=== PATIENT | female | born 1945 | race Caucasian/White ===

== ENCOUNTER → 2018-01-19 06:00 | Outpatient (CLI) | payer MEDICARE, SELFPAY ==
--- NOTE | 2018-01-19 09:45 | STRESSREP ---
Stress Test Report Pharmacologic myocardial perfusion stress test. 72-year-old lady with a history of chest pain. Stress protocol: Resting EKG demonstrates normal sinus rhythm with rate of 85 bpm normal intervals and noted resting blood pressure is 142/82 mmHg. 0.4 mg of regadenoson was infused per usual protocol followed by rapid intravenous saline flush injection continuous EKG monitoring was performed. The maximum heart rate attained was noted to be 89 bpm which was 60% of maximum predicted heart rate. The maximum workload attained was 1 metabolic equivalent. At rest there were no ST or T-wave changes noted suggest abnormal flow reserve at peak infusion no ST or T-wave changes were noted suggest abnormal flow reserve. No clinical angina was noted the resting blood pressure is 142/82 mmHg. Myocardial perfusion protocol. 14.4 mCi of technetium 99m sestamibi was injected. 0.4 mg of regadenoson was infused per usual protocol peak infusion 44.7 mCi of technetium 99m sestamibi was injected. Stress images were obtained stress and rest images were reconstructed and compared in the short axis vertical long horizontal long axis. Gated images were also obtained. Perfusion SPECT analysis. Review of the stress images demonstrate normal uptake of tracer noted in all areas of the myocardium. The resting images similarly demonstrate normal uptake of tracer noted in all areas myocardium. No areas of reversibility and is just ischemia.No previous infarct is noted. Gated SPECT analysis. The gated ejection fraction is 80%. Conclusion: Normal pharmacologic myocardial perfusion stress test. Preserved ejection fraction.
== END ==
PROVIDERS: Family Provider Internal Medicine; PCP Internal Medicine; Visit Provider Family Medicine
DX: R07.89 Other chest pain (principal); R94.31 Abnormal electrocardiogram [ECG] [EKG]
CPT/HCPCS: 78452; 93017; A9500; A4216; J2785

== ENCOUNTER 2018-02-23 14:12 | Emergency (ER) | payer MEDICARE, SELFPAY ==
[2018-02-23 14:14] VITALS: BP 141/77; PULSE 92; RESP 16; TEMP 36.5; O2SAT 95; BMI 40.4
--- NOTE | 2018-02-23 15:12 | CT_ITS ---
STUDY: CT ABDOMEN AND PELVIS WITHOUT CONTRAST REASON FOR EXAM: Female, 72 years old. LT LOW BACK PAIN. HTN-controlled. Prev LEILANI/BSO RADIATION DOSAGE (If Supplied By Facility): CTDIvol = ( 14.38 ) mGy, DLP = ( 662.43 ) mGycm TECHNIQUE: Transaxial images were obtained from the dome of the diaphragm to the symphysis pubis without oral contrast, and without intravenous contrast. Sagittal and coronal images were reconstructed. COMPARISON: None. FINDINGS: The visualized lung bases are unremarkable. The visualized portions of the heart are within normal limits. There is decreased attenuation of the liver consistent with steatosis. Normal gallbladder and extrahepatic biliary system. There are multiple benign calcified granulomata of the spleen. Normal pancreas. Normal bilateral adrenal glands. Mild hydronephrosis caused by left 14 mm renal pelvic stone. Nonobstructive left inferior renal calyceal stone. This measures 4.1 mm. Normal visualized stomach. Normal small intestine. There are multiple colonic diverticula consistent with diverticulosis. There is non-visualization of the appendix. Large amount of stool in the rectal vault can suggest constipation. Stool throughout the colon. There are calcifications of the abdominal aorta and vascular structures. This is consistent for atherosclerotic disease. There is no abdominal aortic aneurysm. Normal inferior vena cava. Subcentimeter mesenteric lymph nodes. Normal urinary bladder. There is absence of the uterus consistent with a prior hysterectomy. There is a small umbilical hernia containing fat. There are degenerative changes of the osseous structures. Grade 1 anterolisthesis of L4 on L5. This is causing severe bilateral neural foraminal stenosis. CT/Abdomen/Pelvis without Cont IMPRESSION: Mild hydronephrosis caused by left 14 mm renal pelvic stone. Fatty liver. Constipation. Hysterectomy. There are multiple diverticuli of the colon. There is diverticulosis but no radiographic signs for diverticulitis. Grade 1 anterolisthesis of L4 on L5. This is causing severe bilateral neural foraminal stenosis. MRI can further evaluate. Other findings as above. Electronically Signed: Markell Yeung MD at 16:22 EDT , Service support ,
--- NOTE | 2018-02-23 15:38 | ED.VISSUMM ---
- ER Visit Summary Date of Service: 02/23/18 Chief Complaint: Left low back pain History of Present Illness: The patient is a 72 F who presents with left low back pain that has been getting worse over the past couple days. Patient states she has had similar pain with prior urinary tract infections. Patient admits to some urinary frequency but denies any dysuria or hematuria. Patient states the pain is on the left. Patient describes the pain as stabbing and throbbing. Patient states the pain is worse with movement. Patient states the pain improves with rest. Patient denies any radiation of the pain. Patient denies any paresthesias or weakness. Patient denies any fevers or chills but admits to occasional sweats. Physical Examination: Vital signs are stable. Patient is afebrile. Patient is in no acute distress. Oral mucosa is pink and moist. Neck is supple. Heart was regular rate and rhythm. Lungs are clear and equal bilaterally. There is good respiratory effort noted. Abdomen is soft. Bowel sounds are normal. There is no tenderness. There is some mild left lower lumbar tenderness. There is limited range of motion of the lumbar spine secondary to pain. Strength is 5/5 bilaterally. There are no sensory deficits noted. The remaining physical exam is within normal limits. Test Results: CT scan of the abdomen and pelvis shows mild hydronephrosis with a 14 mm left renal pelvic stone. Urinalysis shows leukocyte esterase of 100, 5-10 white blood cells, 5-10 red blood cells, 0-5 epithelial cells. Treatment Plan: Patient was given prescription for Bactrim and [place]. Patient states she has an appointment with her urologist in 3 weeks. Patient was instructed to call her urologist to see if she can get an appointment sooner. Patient understood and was agreeable with the plan. All questions were answered. Disposition: Discharge home Impression: Kidney stone This note was generated with [employer] dictation software. It may contain incorrect words, spelling, and punctuation that were not noted in review of the chart prior to signing ED Disposition - Plan for ED Patient: Disposition: Home or Assisted Living Chief Complaint: Back Diagnosis: Left nephrolithiasis Instructions: ED Stone Kidney Undescended No Sx Prescriptions: Hydrocodone Bitart/Apap 5-325 [[place] 5/325] 1 tab PO Q6H PRN PRN 5 Days #20 tab PRN Reason: Pain Smz/Tmp Ds [Bactrim Ds] 1 tab PO BID #6 tab Referrals: Alta Pulido MD [Primary Care Provider] -
[2018-02-23 15:42] LABS: Bacteria 0 SEEN /hpf (None Seen); Mucous, Urine 0 SEEN /hpf (<or=2+)
--- NOTE | 2018-02-23 15:42 | ED.DCSUM_ITS ---
- ER Visit Summary Date of Service: 02/23/18 Chief Complaint: Left low back pain History of Present Illness: The patient is a 72 F who presents with left low back pain that has been getting worse over the past couple days. Patient states she has had similar pain with prior urinary tract infections. Patient admits to some urinary frequency but denies any dysuria or hematuria. Patient states the pain is on the left. Patient describes the pain as stabbing and throbbing. Patient states the pain is worse with movement. Patient states the pain improves with rest. Patient denies any radiation of the pain. Patient denies any paresthesias or weakness. Patient denies any fevers or chills but admits to occasional sweats. Physical Examination: Vital signs are stable. Patient is afebrile. Patient is in no acute distress. Oral mucosa is pink and moist. Neck is supple. Heart was regular rate and rhythm. Lungs are clear and equal bilaterally. There is good respiratory effort noted. Abdomen is soft. Bowel sounds are normal. There is no tenderness. There is some mild left lower lumbar tenderness. There is limited range of motion of the lumbar spine secondary to pain. Strength is 5/5 bilaterally. There are no sensory deficits noted. The remaining physical exam is within normal limits. Test Results: CT scan of the abdomen and pelvis shows mild hydronephrosis with a 14 mm left renal pelvic stone. Urinalysis shows leukocyte esterase of 100, 5- 10 white blood cells, 5-10 red blood cells, 0-5 epithelial cells. Treatment Plan: Patient was given prescription for Bactrim and [place]. Patient states she has an appointment with her urologist in 3 weeks. Patient was instructed to call her urologist to see if she can get an appointment sooner. Patient understood and was agreeable with the plan. All questions were answered. Disposition: Discharge home Impression: Kidney stone This note was generated with [employer] dictation software. It may contain incorrect words, spelling, and punctuation that were not noted in review of the chart prior to signing ED Disposition - Plan for ED Patient: Disposition: Home or Assisted Living Chief Complaint: Back Diagnosis: Left nephrolithiasis Instructions: ED Stone Kidney Undescended No Sx Prescriptions: Hydrocodone Bitart/Apap 5-325 [[place] 5/325] 1 tab PO Q6H PRN PRN 5 Days #20 tab PRN Reason: Pain Smz/Tmp Ds [Bactrim Ds] 1 tab PO BID #6 tab Referrals: Alta Pulido MD [Primary Care Provider] -
[2018-02-23 15:44] LABS: Color, Urine Yellow (Yellow); Glucose, Dipstick Normal (Normal); Ketone-Dipstick Negative (Negative); Leukocyte Esterase-Dipstick 100 /ul (Negative); Nitrite-Dipstick Negative (Negative); Occult Blood-Urine 10 /ul (Negative); Protein-Dipstick 100 mg/dl (Negative); Urine Bilirubin Dipstick Negative (Negative); Urine Clarity Sl. Cloudy (Clear); Urine Urobilinogen Normal (Normal)
[2018-02-23 16:18] LABS: Red Blood Cells-Urine 5-10 SEEN /hpf (0-5); Squamous Epithelial Cells - UA 0-5 SEEN /hpf (5-10); White Blood Cells 5-10 SEEN /hpf (0-5)
[2018-02-23 17:53] VITALS: RESP 17
== END 2018-02-23 17:53 | disposition home or self-care (01) ==
PROVIDERS: Emergency Provider Emergency Medicine; Family Provider Internal Medicine; PCP Internal Medicine
DX: N13.2 Hydronephrosis with renal and ureteral calculous obstruction (principal); I10 Essential (primary) hypertension; E78.00 Pure hypercholesterolemia, unspecified; Z87.440 Personal history of urinary (tract) infections; Z79.899 Other long term (current) drug therapy
CPT/HCPCS: 74176; 81001; 99282

== ENCOUNTER → 2018-03-01 13:19 | Outpatient (CLI) | payer MEDICARE, SELFPAY ==
--- NOTE | 2018-03-01 13:35 | RAD_ITS ---
STUDY: X-RAY - ABDOMEN/PELVIS REASON FOR EXAM: Female, 72 years old. Kidney stone. TECHNIQUE: Two AP supine views of the abdomen and pelvis. COMPARISON: CT abdomen and pelvis February 23, 2018. FINDINGS: Normal visualized lung bases. There is an unremarkable bowel gas pattern. There is no demonstrated free abdominal air. 1.7 x 1.0 cm calcification overlapping the lower pole of the left renal shadow correlates to the overlapping of the calyceal and renal pelvis stones noted on CT. The visualized liver, spleen and kidneys are otherwise grossly normal in size and morphology. There are a few stable calcified phleboliths in the pelvis. There are early degenerative changes of the visualized lumbar spine and bilateral sacroiliac joints. There is endplate spondylosis of the visualized lower thoracic spine and moderate degenerative change at the pubic symphysis. RAD/Abdomen Single View IMPRESSION: 1. The left renal stones noted on CT are overlapping one another in these views, projecting over the lower pole of the left renal shadow. 2. Nonspecific bowel gas pattern. 3. Degenerative changes in the spine and pelvis again noted. Electronically Signed: Joseph Sandoval MD at 14:21 EDT , Service support ,
== END ==
PROVIDERS: Family Provider Internal Medicine; PCP Internal Medicine; Visit Provider Nurse Practitioner Adult Health
DX: N20.0 Calculus of kidney (principal)
CPT/HCPCS: 74018

== ENCOUNTER → 2018-03-01 16:05 | Outpatient (CLI) | payer MEDICARE, SELFPAY | PROVIDERS: Family Provider Internal Medicine; PCP Internal Medicine; Visit Provider Nurse Practitioner Adult Health | DX: R82.90 Unspecified abnormal findings in urine (principal) ==

== ENCOUNTER 2018-03-07 12:30 | Day surgery (SDC) | payer MEDICARE, SELFPAY ==
--- NOTE | 2018-03-07 12:35 | RAD_ITS ---
STUDY: X-RAY - ABDOMEN/PELVIS REASON FOR EXAM: Female, 72 years old. Left kidney stones. TECHNIQUE: Two AP supine views of the abdomen and pelvis. COMPARISON: Comparison is made with prior study dated March 01, 2018. FINDINGS: There is a moderate amount of colonic fecal material. There is a 1.5 cm calculus in the midportion of the left kidney most likely within the renal pelvis. Adjacent to this, there is a 8.6 mm calculus. There are calcified phleboliths in the pelvis. There are diffuse degenerative changes of the visualized lumbar spine. RAD/Abdomen Single View IMPRESSION: Stable examination. 2 calculi are seen in the region of the left renal pelvis. Electronically Signed: Vadim Roche MD at 12:56 EDT Tel [phone], Service support ,
[2018-03-07 13:17] VITALS: BP 140/61; PULSE 79; RESP 16; TEMP 36.6; O2SAT 95; BMI 39.7
--- NOTE | 2018-03-07 14:56 | PCM.DC.URO ---
Discharge Diet: Light diet - advance as tolerated Discharge Activity: May not drive while taking narcotic pain medications. Return to work on:: 03/09/18 Call your doctor if your incision/area has: Increased Pain/ Swelling Call your doctor if you observe: Fever of 101 or Higher Instructions: Shock Wave Lithotripsy Allergies/Adverse Reactions: Allergies No Known Allergies Allergy (Verified 03/06/18 14:47) Medications to take at Discharge Amitriptyline HCl 100 mg PO QHS 10/19/17 Simvastatin 20 mg PO DAILY 10/19/17 Hydrocodone Bitart/Apap 5-325 [[place] 5/325] 1 tab PO Q6H PRN PRN 5 Days #20 tab 02/23/18 Losartan/Hydrochlorothiazide [Losartan-Hctz 100-25 mg Tab] 0.5 mg PO DAILY 02/23/18 Potassium Bicarbonate/Cit AC [Effer-K 10 Meq Tablet Eff] 20 meq PO DAILY 02/23/18 Smz/Tmp Ds [Bactrim Ds] 1 tab PO BID #6 tab 02/23/18 Aspirin E.C. [Ecotrin] 81 mg PO DAILY@0800 03/06/18 Calcium (Elemental) [Os-[place] 500] 500 mg PO DAILY@0800 03/06/18 Magnesium Oxide [Magnesium] 500 mg PO DAILY 03/06/18 Vitamin B Complex 1 each PO DAILY 03/06/18 Zinc Amino Acid Chelate [Zinc] 50 mg PO DAILY 03/06/18 Ciprofloxacin [Cipro] 500 mg PO BID #6 tab 03/07/18 Phenazopyridine [Pyridium] 100 mg PO TID PRN PRN #15 tab 03/07/18 The following prescriptions were given: Phenazopyridine [Pyridium] 100 mg PO TID PRN PRN #15 tab PRN Reason: burning Ciprofloxacin [Cipro] 500 mg PO BID #6 tab Primary Care Physician: Alta Pulido MD [Primary Care Provider] - Please Follow Up With: Toby Barnett MD When: March 20 at 8:45am, get xray first
--- NOTE | 2018-03-07 15:00 | DCINST_ITS ---
Discharge Diet: Light diet - advance as tolerated Discharge Activity: May not drive while taking narcotic pain medications. Return to work on:: 03/09/18 Call your doctor if your incision/area has: Increased Pain/ Swelling Call your doctor if you observe: Fever of 101 or Higher Instructions: Shock Wave Lithotripsy Allergies/Adverse Reactions: Allergies No Known Allergies Allergy (Verified 03/06/18 14:47) Medications to take at Discharge Amitriptyline HCl 100 mg PO QHS 10/19/17 Simvastatin 20 mg PO DAILY 10/19/17 Hydrocodone Bitart/Apap 5-325 [[place] 5/325] 1 tab PO Q6H PRN PRN 5 Days #20 tab 02/23/18 Losartan/Hydrochlorothiazide [Losartan-Hctz 100-25 mg Tab] 0.5 mg PO DAILY 02/23 Potassium Bicarbonate/Cit AC [Effer-K 10 Meq Tablet Eff] 20 meq PO DAILY Smz/Tmp Ds [Bactrim Ds] 1 tab PO BID #6 tab 02/23/18 Aspirin E.C. [Ecotrin] 81 mg PO DAILY@0800 03/06/18 Calcium (Elemental) [Os-[place] 500] 500 mg PO DAILY@0800 03/06/18 Magnesium Oxide [Magnesium] 500 mg PO DAILY 03/06/18 Vitamin B Complex 1 each PO DAILY 03/06/18 Zinc Amino Acid Chelate [Zinc] 50 mg PO DAILY 03/06/18 Ciprofloxacin [Cipro] 500 mg PO BID #6 tab 03/07/18 Phenazopyridine [Pyridium] 100 mg PO TID PRN PRN #15 tab 03/07/18 The following prescriptions were given: Phenazopyridine [Pyridium] 100 mg PO TID PRN PRN #15 tab PRN Reason: burning Ciprofloxacin [Cipro] 500 mg PO BID #6 tab Primary Care Physician: Alta Pulido MD [Primary Care Provider] - Please Follow Up With: Toby Barnett MD When: March 20 at 8:45am, get xray first
--- NOTE | 2018-03-07 15:52 | OP.PCM_ITS ---
Report of Operation Date of Procedure: 03/07/18 Pre-Operative Diagnosis: Left renal calculi ?2 Post-Operative Diagnosis: Same Surgery/Procedure Performed:: Cystoscopy left stent placement and left extracorporeal shockwave lithotripsy Description of Surgical Findings:: 72-year-old female was found to have 2 large stones in her left kidney today plan for treatment of the stones with shockwave lithotripsy renal place a stent beforehand. She was taken back to the operating room and placed in dorsal lithotomy position. She underwent general anesthesia. The urethra and vaginal area were prepped and draped in usual sterile fashion. Went into the bladder with a 21 Palestinian rigid cystourethroscope. The bladder was normal, cannulated the left ureteral orifice with a Glidewire, advanced a wire up into the kidney, I then advanced a stent all the way up to the kidney. Once the stent was in good position I pulled the wire and the stent coiled in the kidney and bladder in good position left the string on the stent for extraction in the future. We then repositioned the patient on the lithotripter table identified the 2 stones and placement of the F2 focal point of the lithotripter machine and delivered 3000 shockwaves to the stones because the stones were fragmented little tiny pieces. At the end of the treatment cycle stones look terribly fragmented successfully. Always possible she may need another treatment. Patient's anesthetic was reversed and she is taken back to the PACU in good condition plan to see her back in about 2 weeks with a KUB before the appointment. Type of Anesthesia:: General Drains: stent - Admit VTE Documentation VTE Present on Admission: No VTE Mechan Device Prophylaxis: SCD's VTE Pharm Prophylaxis ordered?: No Reason prophylaxis not ordered:: Treatment Not Indicated
[2018-03-07 15:56] VITALS: BP 129/65; BP 140/61; PULSE 83; RESP 18; TEMP 36.2; O2SAT 93
[2018-03-07] MEDS: Ketorolac 15 MG/ML Vial IV (16:01)
[2018-03-07 16:15] VITALS: BP 132/65; BP 140/61; PULSE 79; RESP 18; O2SAT 93
[2018-03-07 16:30] VITALS: BP 120/62; BP 140/61; PULSE 79; RESP 18; O2SAT 97
[2018-03-07 16:40] VITALS: BP 112/70; BP 140/61; PULSE 78; RESP 78; TEMP 36.1; O2SAT 95
[2018-03-07 17:25] VITALS: BP 140/61
== END 2018-03-07 17:32 | disposition home or self-care (01) ==
LOC: SDC 12:31 → AC 12:32
PROVIDERS: Family Provider Internal Medicine; PCP Internal Medicine; Visit Provider Urology
PROC: (CPT 50590; principal; 2018-03-07 14:20)
DX: N20.0 Calculus of kidney (principal); F32.9 Major depressive disorder, single episode, unspecified; I15.9 Secondary hypertension, unspecified; E66.9 Obesity, unspecified; G47.30 Sleep apnea, unspecified; E78.00 Pure hypercholesterolemia, unspecified; K76.0 Fatty (change of) liver, not elsewhere classified; Z68.38 Body mass index [BMI] 38.0-38.9, adult; Z87.440 Personal history of urinary (tract) infections; Z79.2 Long term (current) use of antibiotics; Z79.82 Long term (current) use of aspirin; Z79.891 Long term (current) use of opiate analgesic; Z79.899 Other long term (current) drug therapy
CPT/HCPCS: 00873; 52356; 74018; 87086; 87088; J7120; C1769; C2617; J3490

== ENCOUNTER → 2018-03-20 10:25 | Outpatient (CLI) | payer MEDICARE, SELFPAY ==
--- NOTE | 2018-03-20 10:35 | RAD_ITS ---
STUDY: X-RAY - ABDOMEN/PELVIS REASON FOR EXAM: Female, 73 years old. Renal stones TECHNIQUE: Supine views of the abdomen and pelvis were obtained. COMPARISON: Abdomen radiograph dated March 07, 2018; CT abdomen and pelvis dated February 23, 2018 FINDINGS: The lung bases are unremarkable. There is an unremarkable bowel gas pattern. There is no demonstrated free abdominal air. A left ureteral stent is now present. The upper loop is at the level of the L2 vertebral body. The lower loop is in the lower mid pelvis. No calcifications are seen along the course of the stent. Two phleboliths are stable in the lower left pelvis. The soft tissues are unremarkable. There are mild degenerative changes in the visualized spine. RAD/Abdomen Single View IMPRESSION: A left ureteral stent has been placed. The left renal shadow is obscured by overlying stool. There are two calcific densities faintly seen just above the upper loop of the stent. No stones are seen along the course of the stent. Electronically Signed: Alejandra Mays MD at 23:19 EDT Tel Direct: [phone], Service support ,
== END ==
PROVIDERS: Family Provider Internal Medicine; PCP Internal Medicine; Visit Provider Urology
DX: N20.0 Calculus of kidney (principal)
CPT/HCPCS: 74018

== ENCOUNTER → 2018-03-27 16:14 | Outpatient (CLI) | payer MEDICARE, SELFPAY ==
--- NOTE | 2018-03-27 16:20 | RAD_ITS ---
STUDY: X-RAY - ABDOMEN/PELVIS REASON FOR EXAM: Female, 73 years old. Left flank pain. Lithotripsy 2 weeks ago for left-sided kidney stones. TECHNIQUE: KUB COMPARISON: X-ray abdomen 03/20/2018 FINDINGS: There are no visible calculi overlying the left kidney or along the course of the left ureter. None are seen on the right. Stable pattern of left pelvic phleboliths. No other acute intra-abdominal process is evident. Unremarkable bowel pattern. No apparent free air. Grossly normal solid organs. Mild low lumbar spondylosis and minimal scoliosis. RAD/Abdomen Single View IMPRESSION: No visible retained renal or ureteral calculi. Electronically Signed: Adelso Taveras, at 13:06 EDT Tel , Service support ,
== END ==
PROVIDERS: Family Provider Internal Medicine; PCP Internal Medicine; Visit Provider Nurse Practitioner Adult Health
DX: N20.0 Calculus of kidney (principal); R10.9 Unspecified abdominal pain
CPT/HCPCS: 74018

== ENCOUNTER → 2018-06-04 13:27 | Outpatient (CLI) | payer MEDICARE, SELFPAY ==
--- NOTE | 2018-06-04 13:30 | RAD_ITS ---
STUDY: X-RAY - ABDOMEN/PELVIS REASON FOR EXAM: Female, 73 years old. 3 MONTH FOLLOW UP FOR KIDNEY STONE TECHNIQUE: Single AP view of the abdomen / pelvis. COMPARISON: March 27, 2018 FINDINGS: Normal visualized lung bases. There is an unremarkable bowel gas pattern. There is no demonstrated free abdominal air. The visualized liver, spleen and kidneys are grossly normal in size and morphology. Normal soft tissue structures. Normal visualized osseous structures. RAD/Abdomen Single View IMPRESSION: No demonstrated renal or ureteral stone. Electronically Signed: Delmy Monson MD at 11:03 EDT , Service support ,
== END ==
PROVIDERS: Family Provider Internal Medicine; PCP Internal Medicine; Visit Provider Nurse Practitioner Adult Health
DX: N20.0 Calculus of kidney (principal)
CPT/HCPCS: 74018

== ENCOUNTER → 2018-08-10 12:44 | Outpatient (CLI) | payer MEDICARE, SELFPAY ==
--- NOTE | 2018-08-10 12:46 | BI_ITS ---
MAMMOGRAPHY - BILATERAL SCREENING REASON FOR EXAM: Female, 73 years old. Routine annual screening examination. PERTINENT HISTORY: Daughter with breast cancer. TECHNIQUE: Digital bilateral breast sonia (3D mammographic acquisition) in the CC and MLO projections. 2-D mediolateral oblique (MLO) and craniocaudad (CC) views of both breasts were obtained. CAD: Full Field Digital Mammography with Computer Added Detection was performed. COMPARISON: Comparison is made with prior study dated February 10, 2017 and October 01, 2014. FINDINGS: Breast Composition: There are scattered areas of fibroglandular density. There are no dominant masses or suspicious calcifications. Stable benign-appearing bilateral axillary lymph nodes. No other significant abnormalities are identified. There has been no significant change since the prior study. BI/SCREENING MAMM (CAD), BILAT IMPRESSION: Stable bilateral screening mammogram. Yearly follow-up mammogram recommended. (A) ASSESSMENT CATEGORY: BIRADS Category 2: Benign. A letter regarding these results will be sent to the patient by the facility within 30 days. Approximately 10% of breast cancers are not detected by mammography. A normal mammogram should not delay biopsy of a clinically suspicious abnormality. [id number] Electronically Signed: Vadim Roche MD at 14:30 EDT Tel [phone], Service support ,
== END ==
PROVIDERS: Family Provider Family Medicine; PCP Family Medicine; Referring Provider Physician Assistant
DX: Z12.31 Encounter for screening mammogram for malignant neoplasm of breast (principal)
CPT/HCPCS: 77063; 77067

== ENCOUNTER 2018-08-23 14:30 | Outpatient (RCR) | payer MEDICARE, SELFPAY ==
--- NOTE | 2018-07-23 14:31 | HP.PTEVAL ---
Patient's Visit Information BRITTANI STEWART is a 73 year old F referred to Physical Therapy by Keo Rocha MD with a diagnosis of Right Shoulder Pain. Date of Evaluation: 07/23/18 Physical Therapist: Suellen Granados - Visit Plan Frequency: 2x /Week Duration: 4 Weeks Plan: Focus on scap s/s and postural stability - Subjective Subjective: Right shoulder pain- insidious onset a few months ago. She crochets a lot and sometimes that bothers her. Right hand dominate. Pain is located in the deltoid. No radiating pain. Keeps her awake at night- side sleeper- left side and propping the right arm. Worst: 8/10 Agg: crocheting, raising her arm, taking the elbow out and back, getting her bra hooked in the front and spin. Best:0/10 Eases: Tylenol and elevation on the pillow. Describes the pain as dull and achy. Saw MD who called it [place]king. 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 Plans to paint a room in a few days and is concerned about the pain. No N/T in the fingers. No MONSALVE, blurred vision, dizziness. MD did x-rays which showed bursitis- was put on Prednisone dose pack and finished about a week ago. The medication helped a little bit but not a lot and she hated taking it becuase it made her not be able to sit still. Feels the shoulder has been the same since Februrary. PMHX: bilateral knee replacements, hysterectomy, thumb worked on bilaterally, carpal tunnel on the right, ganglion cyst both wrists, cateracts bilaterally, HTN, is watching sugar levels. Meds: symvastatin, hydrochlorthiazide, incontinence medication, baby asprin, over the counter vitamins. - Objective Posture: FH, RS, Increased kyphosis- can correct with verbal cueing. Gait: no deviation noted- good arm swing and trunk rotation. Palpation: tender along medial border of the scapula, bicipital groove and upper trap. ROM: cervical: WNL, Shoulder: WNL in all planes with pain in flexion and abduction, Elbow/Wrist/Finger Dexterity: WNL. Sensation: WNL. Strength: Marketing Technology Specialist: equal to the left, Elbow: 5/5, Shoulder: flexion: 4-/5, abd: 4-/5, IR/ER: 4+/5, Extn: 4+/5, Scap: fair minus. Special Test: Impingment: positive - Goals Goal 1:: Patient will be I with HEP and progression Goal 2:: Patient will maintian proper posture t/o tx session to demo increased scap s/s. Goal Time Frame: 4-6 Weeks Goal 3:: Patinet will demo full AROM painfree in the right shoulder Goal Time Frame: 4-6 Weeks Goal 4:: Patient will report 0/10 pain for 1 week Goal Time Frame: 4-6 Weeks - Rehabilitation Potential Physical Therapy Diagnosis: Patient presents with hypomobility- she has decreased ROM, strength and muscular endurance leading to poor posture and impingment of the right shoulder Rehabilitation Potential: Fair - Anticipated Interventions Patient/Client Instruction: Educate patient on: Benefits of Fitness Program Therapeutic Exercise to Include: Strength training, Endurance training, Agility training, Body mechanics, Postural training, Flexibilty training, Gait and locomotor training, Passive ROM, Active ROM, Scapular Strength/Stabilization For the Purpose of:: To improve muscle performance and motor function TENS: Yes Cryotherapy (ice pack, ice massage): Yes Thermo therapy (hot pack): Yes Ultrasound (thermal/non thermal): Yes For the Purpose of:: To decrease pain Thank you for the opportunity to evaluate your patient. For Medicare and Medicare HMO plans, please review the plan of care and approve it. It will need to be FAXED BACK to us at [phone] for Medicare purposes. Please let me know if there are questions or concerns regarding this plan of care. Physician Signature: Date:
--- NOTE | 2018-07-23 15:41 | HP.OTEVAL ---
Patient's Visit Information BRITTANI STEWART is a 73 year old F, referred to Occupational Therapy by Keo Rocha MD, with a diagnosis of left trigger finger. Date of Evaluation: 07/23/18 Occupational Therapist: Francoise Watt, ROBINSON/Chris, CHT - Subjective Subjective: This 73 year old female was seen for initial OT eval with dx of left RF trigger finger. pt states she had pain starting in Nov. Pt states she does get some pain relief with massaging the most painful area of her hand- pt states she was unable to open her finger without using her other hand at times and curretly finger catches with motion. PT would like to return to her OF with BADLs and IADLS - Pain left hand 0 Pain Intensity Range: 0, 3 - ROM ROM Comments: pt demo 1 from left composite fist due to pain. no pain with digit ext. at this time. 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 Goal:: Pt will demo the ability to form a composite fist to hold coins and manipulate fasteners/money and gasp grocery bags by D/C Goal:: Pt will report pain no greater than 1/10 with use of affected hand with BADLs and IADLs by d/c. Goal:: pt will demo the ability to hold and transitions coins from palm of hand to tips of fingers by d/c Goal:: Pt will demo understanding of joint protection and ergonomics when performing BADLs and IADLs by d/c - Rehabilitation General Assessment: Pt demo with a positive left RF trigger finger. pt demo with a click, and demo difficulty with forming a composite fist. This limitations have decreased ind. with BADls and IADls. PT would benefit rom skilled OT services 2x week for 4 weeks to decrease pain, triggering and increase pts strength and functional use of left hand with BADLS and IADLS. Rehabilitation Potential: Good - Anticipated Interventions Anticipated Interventions: A/AAROM/PROM, Strengthening, Triggerpoint Release, Modalities, Orthoses, Joint Protection/Energy Conservation - Visit Plan Frequency: 2x /Week Duration: 4 Weeks TEXT: Thank you for the opportunity to evaluate your patient. For Medicare and Medicare HMO plans, please review the plan of care and approve it. It will need to be FAXED BACK to us at [phone] for Medicare purposes. Please let me know if there are questions or concerns regarding this plan of care. Physician Signature: Date:
--- NOTE | 2018-08-14 14:45 | HP.OTDCSUM_ITS ---
HP - OT D/C Summary It has been my pleasure to treat BRITTANI STEWART under orders from Keo Rocha MD, for the diagnosis of left trigger finger for a total of 6 visit(s). Please see the following information for a summary of their discharge status. - Overall Improvement % Improvement: 99 - Objective Objective/Function: pt demo a full composit e fist of left blocking machine operator second with no trigger- . left blocking machine operator second 45#. left lat. pinch 6#. left tripod pinch 6# - Goals Patient Goals: Regain Mobility, Regain Strength, Decrease Pain Goal:: PT will demo an increase in blocking machine operator second strength by 20# to increase independent with basic occupations of daily living at [facility] by D/C. Goal:: Pt will demo the ability to form a composite fist to hold coins and manipulate fasteners/money and gasp grocery bags by D/C Goal:: Pt will report pain no greater than 1/10 with use of affected hand with BADLs and IADLs by d/c. Goal:: pt will demo the ability to hold and transitions coins from palm of hand to tips of fingers by d/c Goal:: Pt will demo understanding of joint protection and ergonomics when performing BADLs and IADLs by d/c - Plan Plan: D/C - D/C Information Discharge Comments: Pt has progressed well in OT. Trigger finger has resolved and reports she is ind. with all BADls and IADls. pt reports she has had no difficulty with closing her hand during daily taks. pt demo full left composite fist with no signs of triggering. pt ed. on joint protection. pt demo understanding. pt has met functional goals in OT and is D/C at this time. If there are questions or concerns regarding this patient's occupational therapy, please fell free to call me at [phone]. Thank you for the referral of this patient. Sincerely, Francoise Watt, OTR/L, CHT
--- NOTE | 2018-08-28 14:51 | HP.PTDCSUM ---
HP - PT D/C Summary It has been my pleasure to treat BRITTANI STEWART under orders from Keo Rocha MD, for the diagnosis of Right Shoulder Pain for a total of 8 visit(s). Discharge Date: Please see the following information for a summary of their discharge status. - Subjective Subjective: Patient reports that she was in the water and then she had no pain with exercise then it came back in the night. mornings are the worst in the shoulder. 6/10 worst 0/10 best. Agg: rolling over in bed and laying her arm on the pillows and taking a sweater off behind her back. Some days she feels its better and other days she doesn't feel like its better. Feels confident with the exercises in the pool. - Pain R SH Pain Intensity (Out of 10): 4 - Overall Improvement % Improvement: 80 - Objective Objective/Function: Posture: FH, RS, Increased kyphosis- can correct with verbal cueing. Gait: no deviation noted- good arm swing and trunk rotation. Palpation: not tender to palpation ROM: cervical: WNL, Shoulder: WNL in all planes with no pain, Elbow/Wrist/Finger Dexterity: WNL. Sensation: WNL. Strength: Medical Referral Coordinator: equal to the left, Elbow: 5/5, Shoulder: flexion: 4+/5, abd: 4+/5, IR/ER: 4+/5, Extn: 5/5, Scap: fair minus. Special Test: Impingment: positive - Goals Goal 1:: Patient will be I with HEP and progression Goal Progress: Progressing Goal 2:: Patient will maintian proper posture t/o tx session to demo increased scap s/s. Goal Progress: Progressing Goal 3:: Patinet will demo full AROM painfree in the right shoulder Goal Progress: Progressing Goal 4:: Patient will report 0/10 pain for 1 week Goal Progress: Progressing - Plan Plan: Discharge to I HEp in pool - D/C Information If there are questions or concerns regarding this patient's physical therapy, please feel free to call me at [phone]. Thank you for the referral of this patient. Sincerely, Suellen Granados
--- NOTE | 2018-08-28 14:52 | HP.PT.NRP(2) ---
HP - Discharge Summary (2) - Patient Information BRITTANI STEWART was seen in my office for initial evaluation on 08/16/18. The following Plan of Care was established for this patient: Initial Frequency: 2x /Week Initial Duration: 4 Weeks Plan from Re-Evaluation: Focus on core strengthening, pelvic neutral and stabilization, progressing to hip strength, control and pain free ambulatation as cortisone shot wears off. - Anticipated Interventions Patient/Client Instruction: Educate patient on: Condition, Benefits of Fitness Program For the Purpose of:: To improve nutrient delivery to tissue Therapeutic Exercise to Include: Strength training, Power training, Endurance training, Body mechanics, Postural training, Gait and locomotor training, Dynamic Lumbar Stabilization For the Purpose of:: To decrease pain, To improve muscle performance and motor function, To improve ability to perform ADL's, To increase tolerance to activity/condition/position, To improve gait and locomotor functions TENS: Yes Cryotherapy (ice pack, ice massage): Yes Thermo therapy (hot pack): Yes For the Purpose of:: To decrease pain This patient was last seen in our office . Pertinent comments regarding their Physical therapy will appear below: At this point I will be discontinuing this patient from physical therapy. I would be happy to see this patient again in the future if found appropriate by the physician. Thank you! Suellen Granados
== END 2018-08-23 19:00 | disposition home or self-care (01) ==
LOC: PT 14:30
PROVIDERS: Family Provider Family Medicine; PCP Family Medicine; Visit Provider Family Medicine
DX: M25.511 Pain in right shoulder (principal); M65.342 Trigger finger, left ring finger
CPT/HCPCS: 97035; 97110; 97140; 97161; 97164; 97166; 97530

== ENCOUNTER 2019-01-18 07:58 | Outpatient (RCR) | payer MEDICARE, SELFPAY ==
--- NOTE | 2019-01-18 08:37 | HP.PTEVAL_ITS ---
Patient's Visit Information BRITTANI STEWART is a 73 year old F referred to Physical Therapy by Comfort Cristobal with a diagnosis of Left Knee Pain. Date of Evaluation: 01/18/19 Physical Therapist: Suellen Granados DPT - Visit Plan Frequency: 1x/Week Duration: 1 Week Plan: Discharge to I HEP - Subjective Findings: Left knee/leg pain about 3 months ago and it just never got better. Likes to sleep on her left side and its been really sore so she went to see Dr. Brown's PA Wed who did a cortisone injection in the left knee. Its much better now- take Naproxen and go to PT. She has a TKR in the left with 3 surgeries- arthro, partial, total (12-13 years ago). Origionally in the knee and radiating to the hip- no pain radiating distally. The pain is now only a twinge in the knee. Reports stiffness with bending. Does not do exercises currently. Plans to get a home exercise program. Worst: since injection 3 Best: 0/10 most of the time. Sleep: not disturbed. No N/T in the toes. X-rays taken and the TKR looks good. PMHx: Left TKR. Right Partial, HTN, Glaucoma Meds: Naproxen. Losartin, Simvistatin, Zoloft, eye drops - Objective Posture: FH, RS- can correct with VC's but does not maintain. Gait: no deviation noted. Stairs: asc/desc 8 stairs recip with 1 HR. SLS: 30 sec with UE A. HR/TR: able with UE A. Palpation: not tender. Strength: Ankle: 5/5, KneeL 4+/5, Hip: 4/5. Flex: HS: moderate - Goals Goal 1:: Patient will be I with HEP - Rehabilitation Potential Physical Therapy Diagnosis: Patient presents with hypomobility- she has decreased strength, flex and muscular endurance leading to increased pain with ADL's. Rehabilitation Potential: Good - Anticipated Interventions Therapeutic Exercise to Include: Strength training, Postural training, Flexibilty training Thank you for the opportunity to evaluate your patient. For Medicare and Medicare HMO plans, please review the plan of care and approve it. It will need to be FAXED BACK to us at [phone] for Medicare purposes. For Medicare only, by signing this I certify the plan of care. Please let me know if there are questions or concerns regarding this plan of care. Physician Signature: Date:
--- NOTE | 2019-02-28 10:47 | HP.PT.NRP ---
HP - Discharge Summary (1) - Patient Information BRITTANI STEWART was seen in my office for initial evaluation on 01/18/19. The following Plan of Care was established for this patient: Initial Frequency: 1x/Week Initial Duration: 1 Week - Anticipated Interventions Therapeutic Exercise to Include: Strength training, Postural training, Flexibilty training This patient was last seen in our office . Pertinent comments regarding their Physical therapy will appear below: Patient has not attended physical therapy is over 30 days- appropriate to be d/c from PT and return to MD as needed for further evaluation. At this point I will be discontinuing this patient from physical therapy. I would be happy to see this patient again in the future if found appropriate by the physician. Thank you! MARSHA CastleT
== END 2019-01-18 19:00 | disposition home or self-care (01) ==
LOC: PT 07:58
PROVIDERS: Family Provider Family Medicine; PCP Family Medicine; Referring Provider Physician Assistant; Visit Provider Physician Assistant
DX: M70.52 Other bursitis of knee, left knee (principal); Z96.652 Presence of left artificial knee joint
CPT/HCPCS: 97110; 97161

== ENCOUNTER 2019-04-11 13:30 | Outpatient (RCR) | payer MEDICARE, SELFPAY ==
--- NOTE | 2019-04-04 13:09 | HP.PTEVAL ---
Patient's Visit Information BRITTANI STEWART is a 74 year old F referred to Physical Therapy by Jonnathan Leon MD with a diagnosis of BPPV. Date of Evaluation: 04/04/19 Physical Therapist: Jonnathan Leung, AMAYA, OCS, CSCS - Visit Plan Frequency: 1x/Week Duration: 2-4 Weeks Plan: weeklya s needed for positional monitor and treat and ex as needed. - Subjective Findings: Dizzy form crystals in ears for 6 weeks, insidious onset. Went in for hearing test and referred to dr. Leon. Has had dizzyness in the past. Has had low blood pressure in past also. Getting out of chair can give spinning for a few seconds. Feels pretty normal in between sessions. Rolling in bed also causes it. Lying down also brings it on. Dr. Leon treated it by giving her an ex and sent her hear. Last dizzyness was this morning getting out of bed. Activities pretty normal. No falls. No leg numbness. 4x/day dizzyness. - Objective Balance is good. Cervical ROM WFL and withotu pain. Trasnfers I and easily to adn fro supine adn sit. - R hallpike. + L hallpike for up torsional netagmus accompanied by dizzyness for approx 8 seconds,. Treated wtih L Sb and education. - L hallpike after treatemnt today. - Balance Scores Functional Gait Assessment Score: 27 % Disability: 10.0000 CATSIB Score (Max score 120 seconds): 120 - Goals Goal 1:: abolish dizzyness Goal Time Frame: 2-4 Weeks Goal 2:: Pt feel 100% back to normal withotu dizzyness. Goal Time Frame: 4-6 Weeks - Rehabilitation Potential Physical Therapy Diagnosis: BPPV L posterior canal. Rehabilitation Potential: Good - Anticipated Interventions Patient/Client Instruction: Educate patient on: Condition, Plan of Care Other: to decrease dizzyness Comment: positional ex adn treatments. For the Purpose of:: To increase tolerance to activity/condition/position Thank you for the opportunity to evaluate your patient. For Medicare and Medicare HMO plans, please review the plan of care and approve it. It will need to be FAXED BACK to us at [phone] for Medicare purposes. For Medicare only, by signing this I certify the plan of care. Please let me know if there are questions or concerns regarding this plan of care. Physician Signature: Date:
--- NOTE | 2019-04-11 13:47 | HP.PTDCSUM ---
HP - PT D/C Summary It has been my pleasure to treat BRITTANI STEWART under orders from Jonnathan Leon MD, for the diagnosis of BPPV for a total of 2 visit(s). Discharge Date: 04/11/19 Please see the following information for a summary of their discharge status. - Subjective Subjective: Doing well. Was dizzy last . Then no more dizzyness after that. Back to normal since last Monday. Activities normal. F/u with doctor next week. - Overall Improvement % Improvement: 99 - Objective Objective/Function: Walks confidently and I. - B hallpike manuel. - roll test. Feels back to normal. Did very well adn as expected with vestibular PT. - Goals Goal 1:: abolish dizzyness Goal Progress: Goal Met Goal 2:: Pt feel 100% back to normal withotu dizzyness. Goal Progress: Progressing - Plan Plan: D/C - D/C Information If there are questions or concerns regarding this patient's physical therapy, please feel free to call me at [phone]. Thank you for the referral of this patient. Sincerely, Jonnathan Leung, DPT, OCS, CSCS
== END 2019-04-11 19:00 ==
LOC: PT 13:30
PROVIDERS: Family Provider Family Medicine; PCP Family Medicine; Referring Provider Otolaryngology; Visit Provider Otolaryngology
DX: H81.12 Benign paroxysmal vertigo, left ear (principal)
CPT/HCPCS: 97161; 97530

== ENCOUNTER → 2019-08-12 | Outpatient (CLI) | payer MEDICARE, SELFPAY ==
--- NOTE | 2019-08-12 12:57 | BI_ITS ---
MAMMOGRAPHY - BILATERAL SCREENING REASON FOR EXAM: Female, 74 years old. Routine annual screening examination. PERTINENT HISTORY: Daughter with breast cancer. TECHNIQUE: Digital bilateral breast agus (3D mammographic acquisition) in the CC and MLO projections. 2-D mediolateral oblique (MLO) and craniocaudad (CC) views of both breasts were obtained. CAD: Full Field Digital Mammography with Computer Added Detection was performed. COMPARISON: Comparison is made with prior study dated August 10, 2018 and February 10, 2017. FINDINGS: Breast Composition: There are scattered areas of fibroglandular density. There are no dominant masses or suspicious calcifications. Benign-appearing bilateral axillary lymph nodes. No other significant abnormalities are identified. There has been no significant change since the prior study. BI/SCREEN MAMM (CAD) W/AGUS BILAT IMPRESSION: Stable bilateral screening mammogram. Yearly follow-up mammogram recommended. (A) ASSESSMENT CATEGORY: BIRADS Category 2: Benign. A letter regarding these results will be sent to the patient by the facility within 30 days. Approximately 10% of breast cancers are not detected by mammography. A normal mammogram should not delay biopsy of a clinically suspicious abnormality. [id number] Electronically Signed: Vadim Roche, at 15:13 EDT , Service support ,
== END | disposition home or self-care (01) ==
LOC: OPBI 12:55
PROVIDERS: Family Provider Family Medicine; PCP Family Medicine; Referring Provider Family Medicine; Visit Provider Family Medicine
DX: Z12.31 Encounter for screening mammogram for malignant neoplasm of breast (principal)
CPT/HCPCS: 77063; 77067

== ENCOUNTER → 2019-12-23 | Outpatient (CLI) | payer MEDICARE, SELFPAY ==
[2019-12-23 08:52] LABS: Absolute Lymphocyte Count 2.36 X10^3/uL (0.83-4.51); Absolute Neutrophil Count 3.4 X10^3/uL (2.0-7.7); Basophil# 0.11 X10^3/uL; Basophil% 1.7 % (0-1); Eosinophil# 0.22 X10^3/uL; Eosinophils% 3.4 % (0-5); Hematocrit 44.3 % (37-47); Hemoglobin 14.3 g/dL (12.0-15.0); Lymphocyte # 2.36 X10^3/ul (4.0); Lymphocyte % 36.2 % (19-41); Mean Corp Hgb Conc 32.3 g/dL (32-36); Mean Corpuscular Hgb 29.8 pg (27.0-32.0); Mean Corpuscular Volume 92.3 fL (81-99); Mean Platelet Vol. 10.5 fl (6.2-12.0); Monocyte# 0.44 X10^3/uL; Monocyte% 6.7 % (0-10); NRBC Flagged by Analyzer 0 % (0-5); Neutrophil # 3.37 X10^3/uL (2.7-7.7); Neutrophil % 51.7 % (47-70); Platelet Count 242 K/mm3 (150-450); RBC Distribution Width CV 12.8 % (11.6-14.6); RBC Distribution Width SD 43.7 fl (35.1-43.9); White Blood Count 6.5 K/mm3 (4.4-11.0)
[2019-12-23 08:56] LABS: Erythrocyte Sedimentation Rate 10 mm/hr (0-30)
[2019-12-23 09:24] LABS: CRP < 2.90 mg/L (0.0-3.0); Rheumatoid Factor < 10.0 IU/mL (<15); Uric Acid 6.9 mg/dL (2.6-6.0)
[2019-12-24 16:47] LABS: ANTINUCLEAR ANTIBODIES DIRECT Negative (Negative)
== END | disposition home or self-care (01) ==
LOC: LAB 08:07
PROVIDERS: PCP Family Medicine; Referring Provider Orthopaedic Surgery; Visit Provider Orthopaedic Surgery
DX: M17.12 Unilateral primary osteoarthritis, left knee (principal); E78.2 Mixed hyperlipidemia
CPT/HCPCS: 36415; 84550; 85025; 85652; 86038; 86140; 86431

== ENCOUNTER → 2020-08-18 | Outpatient (CLI) | payer MEDICARE, SELFPAY ==
--- NOTE | 2020-08-18 15:02 | BI_ITS ---
MAMMOGRAPHY - BILATERAL SCREENING REASON FOR EXAM: Female, 75 years old. Routine annual screening examination. PERTINENT HISTORY: Daughter with breast cancer. TECHNIQUE: Digital bilateral breast agus (3D mammographic acquisition) in the CC and MLO projections. 2-D mediolateral oblique (MLO) and craniocaudad (CC) views of both breasts were obtained. CAD: Full Field Digital Mammography with Computer Added Detection was performed. COMPARISON: Comparison is made with prior examination dated 08/12/2019 and 08/10/2018. FINDINGS: Breast Composition: There are scattered areas of fibroglandular density. There are no dominant masses or suspicious calcifications. There is a 7.2 mm x 5.6 mm nodule in the slightly upper lateral anterior aspect of the right breast. Correlation with ultrasound is recommended. Stable appearance of the bilateral small axillary lymph nodes. No other significant abnormalities are identified. BI/SCREEN MAMM (CAD) W/AGUS BILAT IMPRESSION: 7.2 mm x 5.6 mm nodule in the slightly upper lateral anterior aspect of the right breast as described. Correlation with ultrasound is recommended. ASSESSMENT CATEGORY: BIRADS Category 0: Incomplete. Need additional imaging evaluation. A letter regarding these results will be sent to the patient by the facility within 30 days. Approximately 10% of breast cancers are not detected by mammography. A normal mammogram should not delay biopsy of a clinically suspicious abnormality. [id number] Electronically Signed: Vadim Roche, at 8:11 EDT , Service support ,
== END | disposition home or self-care (01) ==
LOC: OPBI 14:55
PROVIDERS: PCP Family Medicine; Referring Provider Family Medicine; Visit Provider Family Medicine
DX: Z12.31 Encounter for screening mammogram for malignant neoplasm of breast (principal)
CPT/HCPCS: 77063; 77067

== ENCOUNTER → 2020-08-24 | Outpatient (CLI) | payer MEDICARE, SELFPAY ==
--- NOTE | 2020-08-24 15:01 | US_ITS ---
STUDY: ULTRASOUND BREAST - RIGHT REASON FOR EXAM: Female, 75 years old. Abnormal screening mammogram. TECHNIQUE: Axial and longitudinal images of the RIGHT breast were performed with a high resolution ultrasound transducer. # OF IMAGES: 25 COMPARISON: Comparison is made with prior mammogram dated 08/18/2020. FINDINGS: RIGHT Breast: The mammographic abnormality corresponds to a 7 mm x 6 mm x 6 mm hypoechoic irregular nodule at the 10 o''clock position of the breast at 2 cm from the nipple. A biopsy is recommended. US/Breast Limited Unilateral IMPRESSION: 7 mm x 6 mm x 6 mm hypoechoic irregular nodule at the 10 o''clock position breast at 2 cm from nipple. A biopsy is recommended ASSESSMENT CATEGORY: BIRADS Category 4: Suspicious - Biopsy Should Be Considered. A letter regarding these results will be sent to the patient by the facility within 30 days. Electronically Signed: Vadim Roche, at 14:51 EDT , Service support ,
== END | disposition home or self-care (01) ==
LOC: OPUS 14:59
PROVIDERS: PCP Family Medicine; Referring Provider Family Medicine; Visit Provider Family Medicine
DX: N63.0 Unspecified lump in unspecified breast (principal); R92.8 Other abnormal and inconclusive findings on diagnostic imaging of breast
CPT/HCPCS: 76642

== ENCOUNTER 2020-09-11 11:26 | Day surgery (SDC) | payer MEDICARE, SELFPAY ==
--- NOTE | 2020-09-10 16:20 | PCM.HP.BLA ---
History and Physical Date of Admission: 09/11/20 Tiffany Sage 1945 ? ? REFERRING PHYSICIAN: Keo Rocha MD ? CHIEF COMPLAINT: Consult ? HPI: The patient is a 75 year old female presents with abnormal right breast radiographs. Denies previous breast masses. Denies previous breast biopsies. Denies nipple discharge. Denies breast pain. Denies previous breast surgery. Daughter had breast cancer, no ovarian cancer in the family known. ? Mammograms (outside films) 08/18/2020 IMPRESSION: 7.2 mm x 5.6 mm nodule in the slightly upper lateral anterior aspect of the right breast as described. Correlation with ultrasound is recommended. US right breast (outside films) 08/24/2020 IMPRESSION: 7 mm x 6 mm x 6 mm hypoechoic irregular nodule at the 10 o''clock position breast at 2 cm from nipple. A biopsy is recommended She underwent US guided right needle core breast biopsy on 08/31/2020. 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 Estrogen Receptor (ER) ? ?Positive (>95%) Progesterone Receptor (PgR) ?Positive (90%) HER2 (ERBB2) IMMUNOHISTOCHEMISTRY ASSAY Interpretation: NEGATIVE for HER2 (ERBB2) Expression She does note bruising in the area. ? PAST MEDICAL HISTORY ? Class 2 obesity due to excess calories in adult 07/09/2018 ? Diverticulosis of colon 07/09/2018 ? Elevated hemoglobin A1c 01/09/2018 ? Essential hypertension 08/02/2013 ? Family history of OR (myocardial infarction) 12/18/2018 ? Dad and Brother in their 60's ? Generalized arthritis 01/04/2018 ? GERD without esophagitis 12/18/2018 ? Glaucoma 01/07/2019 ? Lumbar spinal stenosis 02/2020 ? Mixed hyperlipidemia 08/02/2013 ? Morbid obesity (HCC) 07/09/2018 ? MVP (mitral valve prolapse) 08/02/2013 ? CLAIRE (obstructive sleep apnea) ? ? Osteopenia, senile 07/31/2018 ? Primary insomnia 01/07/2019 ? 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 Recurrent UTI 01/08/2015 ? Situational depression 02/04/2017 ? Trigger finger, left ring finger 07/09/2018 ? Urge incontinence 01/08/2015 ? PAST SURGICAL HISTORY ? HYSTERECTOMY HX N/A 1991 ? LEXISCAN STRESS TEST ? 12/28/2018 ? negative ? PAST SURGICAL HISTORY OF Right 2004 ? Partial Right Knee Replacement ? STRESS TEST ? 01/19/2018 ? normal ? TOTAL KNEE REPLACEMENT Left 2004 ? ? Current Outpatient Medications ? loratadine (CLARITIN) 10 mg tablet Take 10 mg by mouth once daily. ? simvastatin (ZOCOR) 20 mg tablet Take 1 tablet by mouth once daily. ? Losartan-Hydrochlorothiazide 100-12.5 mg per tablet Take 1 tablet by mouth once daily. ? Potassium Bicarb-Citric Acid 20 mEq tbef Take 1 tablet by mouth once daily. ? nystatin-triamcinolone (MYCOLOG) ointment Apply sparingly to perineum twice daily for irritation/infection. ? timolol maleate (TIMOPTIC) 0.5 % drpd Use 1 Drop in both eyes once daily. ? cholecalciferol (VITAMIN D-3) 2,000 unit tablet Take 2,000 Units by mouth once daily. ? zinc once daily. ? Lysine (L-LYSINE) 500 mg tab Take 2 tablets by mouth once daily. ? vitamin b complex (B COMPLEX 1) Tab Take 1 tablet by mouth once daily. ? Calcium Carbonate 500 mg calcium (1,250 mg) capsule Take 1,250 mg by mouth twice daily with meals. ? Magnesium 250 mg Tab Take 1 tablet by mouth. ? Zxvnymiaqkeme-Jtdoiqpf-Yknqzq (CENTRUM SILVER) Tab Take 1 tablet by mouth once daily. ? ? ALLERGIES: Patient has no known allergies. ? PERSONAL HISTORY: Social History ?Tobacco Use ? Smoking status: Never Smoker ? Smokeless tobacco: Never Used Substance Use Topics ? Alcohol use: No ? Drug use: No : FAMILY HISTORY ? Heart Mother ? ? CHF ? Hypertension Mother ? ? Diabetes Mother ? ? Coronary Artery Disease Father ? ? early 60's ? Stroke Father ? ? Alzheimer's Disease Sister ? ? Diabetes Sister ? ? other (lung cancer) Sister ? ? Colon Cancer Sister ? ? Diabetes Sister ? ? Heart Sister ? ? valve replacement ? Diabetes Sister ? ? Diabetes Brother ? ? other (lung cancer) Brother ? ? Coronary Artery Disease Brother ? ? 60's ? Asthma Son ? ? Hodgkin Lymphoma Daughter ? ? Thyroid Cancer Daughter ? ? Hypertension Daughter ? ? Hypertension Daughter ? ? Obesity Daughter ? ? ? REVIEW OF SYSTEMS: General - denies fevers, denies anorexia, denies weight loss Cardiovascular - denies chest pain, denies history of OR Pulmonary - denies shortness of breath, denies coughing up blood Gastrointestinal - denies abdominal pain, denies hematemesis, denies blood in stools Neurological - denies seizures, denies chronic numbness/weakness of extremities Genitourinary - has had kidney stones, denies burning with urination, denies blood in urine Hematological - denies spontaneous/prolonged bleeding Skin - has skin rash in intertriginous areas, denies nonhealing skin wounds Musculoskeletal - limited mobility due to knee replacement Endocrine - denies diabetes, no thyroid problems Psychological ? denies hallucinations Obstetrical - menarche age 10, , breast feeding 6m, BCP use x 1 y, surgical menopause with HRT use for 15y ? ? PHYSICAL EXAMINATION: General: The patient is 75 year old female, well nourished, well hydrated in no acute distress. The patient is oriented to time, place, and person. VITALS: Blood pressure 128/76, pulse 85, temperature 36.4 ?C (97.6 ?F), Ht: 5'2 weight 102.6 kg (226 lb 3.2 oz), SpO2 95 %. Body mass index is 42.05 kg/m?. Head ? Normocephalic. EOM intact with sclera clear and no icterus noted. Mouth with mucus membranes moist. Neck - supple with no jugular venous distention noted. Trachea is midline. No carotid bruits noted. No thyroid enlargement or thyroid nodules detected. No masses noted. Chest/breast ? no asymmetry of breasts noted, bilateral ptotic breasts, no suspicious skin lesions noted - bilateral intertriginous dermatitis inferior aspects of both breasts, no nipple discharge and right nipple slightly indented and patient states that this has been noted for years, no breast masses noted Lungs ? clear to auscultation. Normal breath sounds. No rales/rhonchi/wheezing noted. No labored breathing noted, such as retractions. No cough heard. Heart ? normal S1 and S2 auscultated. No rubs/clicks/murmurs noted. Regular rate. Abdomen ? soft and benign. Normal bowel sounds No abdominal bruits noted. Difficult to determine if any masses or organomegaly due to body habitus. Extremities ? no calf tenderness noted. No pitting edema noted. Skin ? normal skin integrity. Lymph ? no cervical adenopathy detected, no supraclavicular adenopathy detected, no axillary adenopathy detected Neurological ? gait normal, no focal deficits noted Psych ? calm and appropriate RADIOLOGIC STUDIES: As Noted ? ? IMPRESSION: newly diagnosed right breast cancer ? PLAN: I have discussed the above with the patient - here with her daughter. I have described surgical options for treatment - lumpectomy followed by radiation versus mastectomy. Both will require SLNBrBx. I have explained the procedures to the patient and her daughter. I have counseled the patient as to the risks of the procedure, including but not limited to: infection, bleeding, injury to any blood vessels/nerves, scar tissue, lymph leak, seroma, cosmetic deformity, wound infections, complications of anesthesia, etc. ? the patient understands. ? The patient was offered a surgery/procedure. The provider and patient have discussed in detail the risk of exposure to and/or potential harm posed by the COVID-19 virus with having a surgery/procedure at this time versus the risk of? delaying the surgery/procedure. It is not possible to know either the risk of delaying the surgery or procedure or chance of getting an infection with perfect accuracy, but a joint decision was made between the patient and the provider to proceed at this time with the scheduled surgery/procedure. The patient wishes to proceed with breast lumpectomy/SLNBrBx. ? ? I have answered all questions to the patient?s satisfaction and the patient has no further questions. . Diagnoses: (R92.8) Abnormal ultrasound of breast (primary encounter diagnosis) (R92.8) Abnormal mammogram (E66.01) Morbid obesity (HCC)
[2020-09-11] VITALS (7 sets, daily range): BP systolic 110–147; BP diastolic 44–73; PULSE 65–75; RESP 16–18; TEMP 36.2–37.2; O2SAT 92–97; BMI 41.2
--- NOTE | 2020-09-11 | IMM_PTH ---
PATIENT: BRITTANI STEWART LOC: [facility] – [place] U#:[id number] AGE/SX: 75/F ROOM: RE09/11/[address]: Dr. Candy Benson MD : 1945 BED: DIS: 09/11/2020 SPEC #: [id number] RECD: 09/16/20 12:33 STATUS: YAIMA REQ #: [id number] CHRISTOPHE: 09/11/20 00:[address]: Candy Benson DEPT: IMMUNOHISTOCHEMISTRY RECD BY: Yodit Kay ENTERED: 09/16/20 12:36 SP TYPE: IMMUNO OTHR DR: Dr. Keo Rocha MD Tissues: A - Axillary lymph node, NOS B - Axillary lymph node, NOS C - Right breast, NOS Procedures: CALPONIN-1 (add) CK5-6 (add) CK7 (add) CK8 (add) RUSSO-2 (add) E-CAD (add) HER2 [place] (add) KI-67 (add) P53 (add) HI (add) Pankeratin (initial) Pankeratin (add) P40 (add) ER (initial) PHYSICIAN & [place] [phone] SPECIMEN INFORMATION: Tissue Source: A - Right sentinel lymph nodes, B - Additional right axillary sentinel lymph node, C - Right breast mass Clinical Info: Abnormal breast ultrasound; abnormal mammogram Specimen Number: [id number] A1, A2, B1, B2, C5 CPT code: 34344 x3, 06433 x14, 23167 x3 METHODOLOGY: Deparaffinized sections of prefer/formalin-fixed tissue or PAP/DQ stained slides are incubated with monoclonal/polyclonal antibodies/oligonucleotide probes. Localization is made via biotin free immunoperoxidase method. Appropriate controls are performed and reacted as expected. Results on target cell population are indicated in the following table: RESULTS: ANTIBODY / CLONE RESULT Block A1 CK7 (OV-TL12/30) negative AE1-3 (AE1/AE3/PCK26) negative Block A2 CK7 (OV-TL12/30) negative AE1-3 (AE1/AE3/PCK26) negative Block B1 CK7 (OV-TL12/30) negative AE1-3 (AE1/AE3/PCK26) negative Block B2 CK7 (OV-TL12/30) negative AE1-3 (AE1/AE3/PCK26) negative Block C5 P53 (DO-7) positive, 2% dim Ki-67 (30-9) positive, 30% CK8 (70xxcyN27) positive CK5-6 (D5 & 1684) negative Calponin-1 (WO172Z) negative P40 (BC28) negative E-Cad (ECH-6) positive RUSSO-2 (SP21) positive MORPHOMETRIC ANALYSIS ER (clone 6F11) >95%, strong intensity HI (clone 16/1E2) 85%, moderate intensity Her-2Neu (clone CB11) 0 The prognostic test for HER2 is performed on formalin-fixed paraffin embedded tissue. A 3+ (positive) staining pattern is defined as intense, homogeneous, complete, circumferential membranous staining in >10% of contiguous tumor cells. A similar weak (2+) staining pattern is interpreted as equivocal. SONIYA follow-up testing is recommended for all equivocal cases. Positivity/negativity for ER/HI is reported if > or < 1% of the tumor cells are immuno- reactive, respectively. The ASCO/CAP criteria is used for scoring. Reference: Journal of Clinical Oncology, 2013; 31:8274-3725 & 2010; 16:1230-7722. Duration of fixation: 52.5 Hrs; Sample Adequate: Yes. These assays have not been validated on decalcified tissues. Results should be interpreted with caution given the likelihood of false negativity on decalcified specimens. These tests were developed and their performance characteristics determined by [facility]. They may not have been cleared or approved by the U.S. Food and Drug Administration. The FDA has determined that such clearance or approval is not necessary. The above immunohistochemical/dualISH markers are ordered and reviewed by the Pathologist. INTERPRETATION: A. Right sentinel lymph nodes, biopsy: Two out of two lymph nodes, negative for carcinoma. B. Additional right axillary sentinel lymph node, biopsy: One out of one lymph node, negative for carcinoma. C. Right breast mass, lumpectomy: Invasive ductal carcinoma. Positive for estrogen receptors (favorable prognostic indicator). Positive for progesterone receptors (favorable prognostic indicator). Negative for overexpression of ULE8pgm. AM:dean 09/17/20
--- NOTE | 2020-09-11 | AXNB_PTH ---
PATIENT: BRITTANI STEWART LOC: [facility] – [place] U#:[id number] AGE/SX: 75/F ROOM: RE09/11/[address]: Dr. Candy Benson MD : 1945 BED: DIS: 09/11/2020 SPEC #: [id number] RECD: 09/11/20 15:11 STATUS: YAIMA REQ #: [id number] CHRISTOPHE: 09/11/20 00:[address]: Candy Benson DEPT: SURGICAL PATHOLOGY RECD BY: Yodit Kay ENTERED: 09/14/20 07:47 SP TYPE: AX NODE BX OTHR DR: Dr. Keo Rocha MD Tissues: A - Axillary lymph node, NOS B - Axillary lymph node, NOS C - Right breast, NOS Procedures: Frozen Section (charge) Frozen Section Add'l ([facility]) Surgery Specimen Level IV Surgery Specimen Level V HEADER OPERATION: Right breast lumpectomy via wire localization, axillary lymph node PRE-OP DIAGNOSIS: Abnormal ultrasound of breast, abnormal mammogram TISSUE SUBMITTED: A - Right sentinel nodes, FS at 1507, B - Additional right sentinel nodes, FS at 1511, C - Right breast mass, one long suture - lateral border, two short sutures - posterior border, one short suture - superior border FROZEN SECTION DIAGNOSIS A. Right sentinel nodes, biopsy: Two out of two lymph nodes, negative for metastatic carcinoma. B. Additional right sentinel node biopsy: One lymph node, negative for metastatic carcinoma. SJ:dean 09/11/20 MICROSCOPIC DIAGNOSIS A. Right sentinel lymph nodes, biopsy: Two out of two lymph nodes, negative for carcinoma. See comment. B. Additional right axillary sentinel lymph node biopsy: One out of one lymph node, negative for carcinoma. See comment. C. Right breast mass, lumpectomy: Invasive ductal carcinoma. See cancer checklist below. See comment. AM:dean 09/16/20 COMMENT INVASIVE BREAST CANCER SUMMARY: Procedure: Excision with wire guidance Specimen: Type: Partial breast Size: 6 x 6 x 4 cm Laterality: Right breast Invasive Tumor: Size: 1.2 x 1 x 1 cm Focality: Single focus of invasive carcinoma. Histologic type: Invasive ductal carcinoma. Histologic grade ([place] grade): Glandular/tubular differentiation score: 2 Nuclear pleomorphism score: 2 Mitotic count score: 2 Overall grade: 2 (score of 6) Lymphvascular invasion: Not identified Ductal Carcinoma In Situ: Estimated size (extent): <1 millimeter Number of blocks: 1 of 12 blocks Architectural pattern: Cribriform Nuclear grade: 1/3 Necrosis: Not present Lobular Carcinoma In Situ: Not present Tumor extension: Skin: Free of carcinoma Nipple: Not present Skeletal muscle: Not present Invasive Carcinoma Margin: Distance from closest margin: 10 millimeters from superior margin In Situ Carcinoma Margin: Distance from closest margin: 10 millimeters from superior margin Lymph Nodes: Number of sentinel lymph nodes examined: 3 Total number of lymph nodes examined: 3 No evidence of macrometastases, micrometastases or isolated tumor cells. See specimens A & B Microcalcifications: Focally present in non-neoplastic tissue. Treatment Effect: Unknown Additional Pathologic Findings: Focal atypical lobular hyperplasia, intraductal hyperplasia without atypia, fibrocystic change and changes of previous biopsy. Ancillary Studies: Previously performed on same tumor ([facility] [id number]) ER: Positive (>95%) CT: Positive (90%) Puy2lbt: Negative (0) Clinical History: Abnormal mammogram PATHOLOGIC STAGE: pT1c N0 Mx The above summary is in compliance with College of [place] Path[employer] (CAP) Cancer Protocols Checklist and [place] Joint Committee on Cancer (AJCC), Staging Manual, 8th Ed. A & B. Immunohistochemistry ([id number]) supports the above diagnosis. C. ER/CT/Xry0eva studies are being performed on sections of tumor and the results from this study will be reported separately ([id number]). MICROSCOPIC DESCRIPTION Slides are reviewed. GROSS DESCRIPTION A - Received fresh for frozen section diagnosis labeled with the patient's name is a specimen designated right sentinel lymph nodes. The specimen consists of two pieces of adipose tissue measuring 2 x 1 x 0.5 cm and 4.5 x 4 x 1 cm. Two nodules consistent with lymph nodes are identified measuring 1 and 2.5 cm in greatest dimension. The lymph nodes are submitted for frozen section diagnosis in entirety as follows: 1 - frozen section, one lymph node, 2 - frozen section, one bisected lymph node. / : 09/11/20 B - Received fresh for frozen section diagnosis labeled with the patient's name is a specimen designated additional right sentinel lymph node. The specimen consists of a piece of adipose tissue measuring 2.5 x 2.5 x 1 cm. One lymph node measuring 2.5 cm in greatest dimension is identified. It is bisected. The entire lymph node is submitted in two cassettes for frozen section diagnosis. / : 09/11/20 C - Received fresh for intraoperative consultation labeled with the patient's name is a specimen designated right breast mass. The specimen consists of a piece of fibroadipose tissue with needle localization measuring 6 x 6 x 4 cm. A piece of skin is noted anteriorly measuring 1.5 x 0.3 cm. The specimen is oriented by sutures as follows: one long suture - lateral border, two short sutures - posterior border, one short suture - superior border. The specimen is inked as follows: anterior - yellow, posterior - black, superior - blue, inferior - green, medial - red and lateral - orange. Serial sections reveal a gutiérrez, indurated tumor mass with central cavity measuring 1.2 x 1 x 1 cm. This mass is 1 cm away from the closest superior margin. This information is conveyed to the surgeon intraoperatively. Sections of the rest of the specimen reveal gutiérrez-yellow adipose cut surfaces mixed with gutiérrez-white fibrous area. Negative Assembler sections are submitted in 12 cassettes as follows: 1 - perpendicular medial, lateral and posterior margins, 2 - perpendicular anterior margin, skin, inferior and superior margins, 3-6 - biopsy cavity with surrounding tissue, 7-12 - leasing representative sections adjacent to and around the mass and biopsy cavity. Sections will be submitted after additional fixation. / : 09/14/20 TC:0 CPT: 40946, 82519 x2, 13681 x2, 07733, 44975 x2 ADDENDUM ADDENDUM ADDENDUM ADDENDUM ADDENDUM ADDENDUM ADDENDUM ADDENDUM 10/16/2020 10:59 ADDENDUM 10/16/2020 10:59 ADDENDUM 10/16/2020 10:59 ADDENDUM 10/16/2020 10:59 ADDENDUM 10/16/2020 10:59 An order for Oncotype testing was received from Dr. Spencer. This necessitated case review, block and slide selection by pathologist at [facility]. Breast Cancer Recurrence Score = 11 Results of the complete Oncotype testing ([facility]ink report) are viewable in EMR under: Reports - Pathology - Lab Pathology Report, Scanned.
--- NOTE | 2020-09-11 12:00 | NM_ITS ---
PROCEDURE: NUCLEAR MEDICINE Injection [place] Node - RIGHT breast(s). REASON FOR EXAM: Female, 75 years old. TECHNIQUE: [place] node localization using radionuclide methods of the RIGHT breast(s) was performed following subcutaneous administration of 1.1 mCi of of sulfur colloid Tc-99m. FINDINGS: 1.1 mCi of technetium labeled sulfur colloid was injected in 4 equal aliquots at the biopsy site. NM/Lymph Node Injection Only IMPRESSION: Subcutaneous injection of 1.1 mCi of technetium labeled sulfur colloid for right sentinel node imaging. Electronically Signed: Vadim Roche, at 12:39 EST , Service support ,
[2020-09-11] MEDS: Lactated Ringers 1,000 ML 75 ML IV (12:16)
--- NOTE | 2020-09-11 13:07 | BI_ITS ---
SURGICAL BREAST SPECIMEN RADIOGRAPH CLINICAL: Document presence of tissue clip marker in biopsy specimen. FINDINGS: Specimen shows presence of tissue clip marker. Electronically Signed: Vadim Roche, at 8:27 EST , Service support , BI/Breast Biopsy Specimen
[2020-09-11] MEDS: Cefazolin 2 GM in 0.9% Normal Saline 100 ML IV (14:24)
[2020-09-11] MEDS: 0.9% Normal Saline (Pres. free 10 ML Vial (14:39)
[2020-09-11] MEDS: Isosulfan Blue 1% 5 ML Vial (14:39)
[2020-09-11] MEDS: Bupiv/Epi 0.25% 30 ML Vial (15:17)
--- NOTE | 2020-09-11 16:10 | OP.PCM_ITS ---
Report of Operation Date of Procedure: 09/11/20 Pre-Operative Diagnosis: right breast cancer Post-Operative Diagnosis: right breast cancer - mid outer Surgery/Procedure Performed:: right breast lumpectomy via wire localization, right axillary sentinel lymph node biopsy Description of Surgical Findings:: mid lateral right breast cancer ppa teacher: Sourav Bass Type of Anesthesia:: General Anesthesiologist: Aristeo Dixon Specimen's removed: right axillary lymph jim tissue x 2, right breast lumpectomy Estimated Blood Loss (mL): < 5 ml Fluids Replaced: 1000 ml RL Description of Procedure: After informed consent was given, the patient was brought into the Breast Stereotactic Radiology suite. Appropriate time out protocol was followed. The patient was then placed in the prone position on the [facility] stereotactic table. The patient?s right breast was placed in the opening at the head of the table. A vocational rehabilitation technician compression mammogram was then obtained in the lateral view. The marker clip that was previously placed was identified. Stereo pictures of the lesion were then taken for XYZ coordinates. The Kopans needle was then positioned where it would be entering into the patient?s breast. The skin at this site was then cleansed with a surgical skin preparation. The skin and subcutaneous tissues at this site were then infiltrated with 1% xylocaine. The Kopans needle was then positioned into the patient?s breast at the proper coordinates of depth. A vocational rehabilitation technician film was obtained which revealed the wire in proper position. The patient was then placed in the supine position and the wire was taped into place. A unilateral mammogram in the CC and MLO view were then taken for use in the OR. The patient tolerated this portion of the procedure well and was brought to the AC awaiting surgery in the OR. The patient was then brought to the Operating Room. Appropriate time out protocol was followed. The patient was then placed on the operating table in the supine position. A wire had already been placed in the stereotactic biopsy room in the radiology department as described above. The patient had radioactive isotope injected earlier this day by the radiologist for radioactive tracer tracking. After the patient was placed under general anesthesia by the anesthesia provider, the periareolar subcutaneous tissues of the right breast were infiltrated with lymhazurin blue dye - diluted to a 50:50 mixture with saline - total of 3 ml used, using a 25G needle. Gentle massage was then done for a few minutes. The right breast with the wire in placed and the chest was then prepped with a sterile surgical skin preparation and sterile surgical drapes were placed. The Neoprobe device was brought into the operative field. A skin incision was made in the inferior portion of the hair bearing area of the right axilla. It was carried through to the subcutaneous tissues using electrocautery. Any hemorrhage was controlled with electrocautery. A Weitlaner retractor was used for increased operative exposure. The Neoprobe 10 second count over the tumor bed was 2439. The 10 second count over the abdominal area was 0. The 10 second count over the axilla was 423. Blunt dissection was conducted into the soft tissues of the axilla. The blue lymphatic vessels were then followed by the blunt dissection until blue colored lymph nodes were identified. This lymph jim tissue was from the surrounding tissue by blunt dissection and the vascular pedicles ligated with ligaclips. Additional lymph jim tissue was also identified that was blue in coloration. The Neoprobe 10 second count of the lymph jim tissue was 241. The lymph jim tissue was then forwarded to pathology for frozen section. Pathology revealed that three lymph nodes were negative for metastatic disease. Careful examination was done in the axilla, no further palpable masses were noted in the axilla. No further blue colored tissue was noted in the axilla. The 10 second Neoprobe count in the axilla was 0. Hemostasis was carefully controlled by electrocautery. Kristal was placed in the axillary cavity. The deep tissues were approximated with 2-0 vicryl suture. The skin edges were reapproximated with 3-0 vicryl suture in a horizontal orlin ress fashion and then further closed with running 4-0 monocryl in a subcuticular fashion. Cavilon and steristrips were then placed to reinforce the skin closure and proper sterile dressings were applied. The right breast lumpectomy was then done next. A wire had already been placed in the stereotactic biopsy room in the radiology department as described above. The skin and subcutaneous tissues at the site of the breast lesion was then infiltrated with 1% xylocaine with epinephrine. At the lateral mid aspect of the patient's right breast, a transverse skin incision was then made at the wir e entrance site with a 15 blade scalpel and carried down through to the subcutaneous tissues. Hemostasis was controlled with electrocautery. The wire was then palpated out within the breast tissue. The breast tissue surrounding the wire was then carefully palpated out and from the surrounding tissues using electrocautery. The breast tissue, once from the breast, was then forwarded to the radiology department, where a specimen mammogram revealed that the marker clip was within the specimen. I personally reviewed this and made the determination that the tissue obtained was appropriately adequate. The breast tissue was then forwarded to pathology for analysis. Pathology review revealed that the closest margin was superior with a measurement of 10mm. The wound cavity was carefully examined. No further suspicious tissue was palpated or visualized. Hemostasis was carefully controlled with electrocautery. The subdermal tissues were then approximated with vicryl suture. The incision was then reapproximated close using running monocryl suture. Cavilon and steristrips were then placed to reinforce the skin closure. Sponge, needle, and instrument count were verified and correct at the time of skin closure. A sterile dressing was then applied. The patient was then brought to the Recovery Room in stable condition. - Complications none noted - Admit VTE Documentation VTE Present on Admission: Yes VTE Mechan Device Prophylaxis: SCD's
--- NOTE | 2020-09-11 16:27 | DCINST_ITS ---
Discharge Diet: No Restrictions Discharge Activity: Return to Normal Activity, May not drive while taking narcotic pain medications. Call your doctor if your incision/area has: Continuous Slow Oozing, Foul Smelling Discharge Call your doctor if you observe: Fever of 101 or Higher Additional Instructions: Recommended pain control regimen - May take 600 mg ibuprofen (Motrin) and then in 3-4 hours, may take 650 mg acetaminophen (Tylenol), then in 3-4 hours may take 600 mg ibuprofen, then in 3- 4 hours may take 650 mg acetaminophen and so on for 2-3 days May take narcotic pain medication for pain that is not controlled by above and at night for comfort through the night Leave dressings in place May get dressings wet in shower - do not scrub in the area and pat dry Do not soak - no tub baths/swimming For breast surgery - Wear supportive bra during the day Swelling and bruising will occur in the area, ice packs to the area may provide comfort, apply as tolerated Avoid excessive bouncing/jumping for at least two weeks Allergies/Adverse Reactions: Allergies No Known Allergies Allergy (Verified 09/11/20 12:03) Medications to take at Discharge Amitriptyline HCl 100 mg PO QHS 10/19/17 Simvastatin 20 mg PO QHS 10/19/17 Losartan/Hydrochlorothiazide [Losartan-Hctz 100-25 mg Tab] 1 tab PO DAILY 02/23/18 Potassium Bicarbonate/Cit AC [Effer-K 10 Meq Tablet Eff] 20 meq PO DAILY 8 Calcium (Elemental) [Os-[place] 500] 500 mg PO DAILY@0800 03/06/18 Magnesium Oxide [Magnesium] 250 mg PO DAILY 03/06/18 Vitamin B Complex 1 each PO DAILY 03/06/18 Zinc Amino Acid Chelate [Zinc] 50 mg PO DAILY 03/06/18 Lysine 500 mg PO DAILY 09/09/20 Multivit-Min/FA/Lycopen/Lutein [Centrum Silver Tablet] 1 ea PO DAILY 09/09/20 Naproxen Sod/Diphenhydramine [Aleve Pm Caplet] 1 ea PO QHS 09/09/20 Timolol Maleate [Timoptic-XE 0.5%] 1 drp EACH EYE BID 09/09/20 Hydrocodone Bitart/Apap 5-325 [[place] 5MG-325MG] 1 tablet PO Q6H PRN PRN 5 Days #20 tablet 09/11/20 The following prescriptions were given: Hydrocodone Bitart/Apap 5-325 [[place] 5MG-325MG] 1 tablet PO Q6H PRN PRN 5 Days #20 tablet PRN Reason: Pain Transmission Status: Received by [id number] [facility] Primary Care Physician: Keo Rocha MD [Primary Care Provider] - Please Follow Up With: Candy Benson MD - call , call for urgent questions/concerns When: to be seen in one week, please call for date and time, thank you
[2020-09-11] MEDS: HYDROcodone Bitartrate/Apap 5/325 Tablet PO (18:12)
== END 2020-09-11 19:15 | disposition home or self-care (01) ==
LOC: SDC 11:26 → AC 11:35
PROVIDERS: PCP Family Medicine; Referring Provider Surgery; Visit Provider Surgery
PROC: 0HBV0ZZ Excision of Bilateral Breast, Open Approach (ICD-10-PCS; CPT 19302; principal; 2020-09-11 14:00)
DX: C50.411 Malignant neoplasm of upper-outer quadrant of right female breast (principal); K21.9 Gastro-esophageal reflux disease without esophagitis; E78.2 Mixed hyperlipidemia; I10 Essential (primary) hypertension; Z68.41 Body mass index [BMI] 40.0-44.9, adult; E66.01 Morbid (severe) obesity due to excess calories; Z79.899 Other long term (current) drug therapy
CPT/HCPCS: 01610; 19301; 38525; 19281; 38792; 76098; 87426; 88305; 88307; 88331; 88332; 88341; 88342; A9541; C9803; J7120; J2405; J3490; Q9968

== ENCOUNTER → 2021-08-19 12:45 | Outpatient (CLI) | payer MEDICARE, SELFPAY ==
[2020-09-11 12:04] VITALS: BMI 41.2
--- NOTE | 2021-08-19 12:48 | BI_ITS ---
MAMMOGRAPHY - BILATERAL SCREENING REASON FOR EXAM: Female, 76 years old. Routine annual screening examination. PERTINENT HISTORY: Personal history of breast cancer. The patient is status post right lumpectomy. Daughter with breast cancer. TECHNIQUE: Digital bilateral breast agus (3D mammographic acquisition) in the CC and MLO projections. 2-D mediolateral oblique (MLO) and craniocaudad (CC) views of both breasts were obtained. CAD: Full Field Digital Mammography with Computer Added Detection was performed. COMPARISON: Comparison is made with prior study dated 08/18/2020 and 09/11/2020. FINDINGS: Breast Composition: There are scattered areas of fibroglandular density. There are no dominant masses or suspicious calcifications. The patient is status post lumpectomy in the retroareolar region of the right breast with resultant postoperative deformity. No other significant abnormalities are identified. BI/SCRN MAMM (CAD)W/AGUS BILAT IMPRESSION: Status post lumpectomy in the retroareolar region of the right breast with resultant architectural deformity related to surgery. Yearly follow-up mammogram recommended. (A) ASSESSMENT CATEGORY: BIRADS Category 2: Benign. A letter regarding these results will be sent to the patient by the facility within 30 days. Approximately 10% of breast cancers are not detected by mammography. A normal mammogram should not delay biopsy of a clinically suspicious abnormality. [id number] Electronically Signed: Vadim Roche MD at 14:16 EDT , Service support ,
== END ==
PROVIDERS: PCP Family Medicine; Referring Provider Nurse Practitioner; Visit Provider Nurse Practitioner
DX: Z12.31 Encounter for screening mammogram for malignant neoplasm of breast (principal); C50.411 Malignant neoplasm of upper-outer quadrant of right female breast; Z17.0 Estrogen receptor positive status [ER+]
CPT/HCPCS: 77063; 77067

== ENCOUNTER 2022-05-21 13:47 | Emergency (ER) | payer MEDICARE, SELFPAY ==
[2022-05-21] VITALS (8 sets, daily range): BP systolic 134–190; BP diastolic 59–95; PULSE 70–85; RESP 16–18; TEMP 36.6–36.8; O2SAT 95–97; BMI 41.3
--- NOTE | 2022-05-21 13:49 | CT_ITS ---
We are attempting to reach an attending provider to discuss findings. An addendum with communication details will be sent when the communication is complete. STUDY: CT BRAIN WITHOUT CONTRAST REASON FOR EXAM: Female, 77 years old. Neuro deficit, acute, stroke suspected Individualized dose optimization techniques were used for this CT. TECHNIQUE: Transaxial CT imaging of the brain was performed without administration of intravenous contrast material. Comparison: 10.20.17 FINDINGS: There are calcifications around the carotid artery. These are noted in the cavernous carotid arteries. Normal calvarium. Normal soft tissues. There is mild cerebral atrophy with widening of the extra-axial spaces and ventricular dilatation. There are areas of decreased attenuation within the white matter tracts of the supratentorial brain, consistent with microvascular disease changes. Normal basal ganglia and thalami. Normal brainstem. There is mild cerebellar atrophy. There is no intracranial hemorrhage. There are no findings of an acute ischemic infarction. However, there is a hyperdense right MCA sign ingesting a thrombosed vessel. There is sinus disease. ASPECTS Score for Acute Strokes: 08/08 CT/STROKE Brain/Head without Cont IMPRESSION: There are no findings of an acute ischemic infarction. However, there is a hyperdense right MCA sign ingesting a thrombosed vessel. CTA recommended. Chronic involutional changes of the brain. Critical finding called and case discussed. Electronically Signed: Markell Yeung MD at 14:10 EDT ,
--- NOTE | 2022-05-21 13:49 | EKG12_ITS ---
Test Reason : stroke Blood Pressure : / mmHG Vent. Rate : 081 BPM Atrial Rate : 081 BPM P-R Int : 178 ms QRS Dur : 082 ms QT Int : 374 ms P-R-T Axes : 057 -15 060 degrees QTc Int : 434 ms Normal sinus rhythm Low voltage QRS Borderline ECG Confirmed by ROSLYN HERNANDEZ, MJ ([id number]), assignment desk editor SALLY EDEN ([id number]) on 05/24/2022 9:27:08 AM Referred By: Dex Confirmed By:MJ MCGOWAN MD
--- NOTE | 2022-05-21 13:50 | CT_ITS ---
We are attempting to reach an attending provider to discuss findings. An addendum with communication details will be sent when the communication is complete. EXAM: CT ANGIOGRAPHY HEAD AND NECK WITH INTRAVENOUS CONTRAST CLINICAL INDICATION: Neuro deficit, acute, stroke suspected TECHNIQUE: [place] [facility] [place]/head and neck CT angiography protocol performed with intravenous contrast. This CT exam was performed using one or more of the following dose reduction techniques: automated exposure control, adjustment of the mA and/or kV according to patient size, and/or use of iterative reconstruction technique. This report was created using XOJET report generation technology. MIP reconstructed images were created and reviewed. CONTRAST: IV 100mL Isovue-370 RADIATION DOSE: CTDIvol = 16.00 mGy, DLP = 729.69 mGy-cm COMPARISON: None. FINDINGS: HEAD: RIGHT ANTERIOR CEREBRAL ARTERY: Unremarkable. No significant stenosis at the visualized segments. Anterior communicating artery is present. No aneurysm. RIGHT MIDDLE CEREBRAL ARTERY: Thrombosed right M1 segment. Hyperdense right MCA sign. No aneurysm. RIGHT POSTERIOR CEREBRAL ARTERY: Unremarkable. No occlusion or significant stenosis. No aneurysm. RIGHT INTRACRANIAL INTERNAL CAROTID ARTERY: Unremarkable. No significant stenosis. No dissection or occlusion. RIGHT INTRACRANIAL VERTEBRAL ARTERY: Unremarkable. No significant stenosis. No dissection or occlusion. LEFT ANTERIOR CEREBRAL ARTERY: Unremarkable. No significant stenosis at the visualized segments. No aneurysm. LEFT MIDDLE CEREBRAL ARTERY: Unremarkable. No significant stenosis at the visualized segments. No aneurysm. LEFT POSTERIOR CEREBRAL ARTERY: Unremarkable. No occlusion or significant stenosis. No aneurysm. LEFT INTRACRANIAL INTERNAL CAROTID ARTERY: See below. LEFT INTRACRANIAL VERTEBRAL ARTERY: Unremarkable. No significant stenosis. No dissection or occlusion. BASILAR ARTERY: Unremarkable. No significant stenosis. No aneurysm. OTHER VASCULATURE: There is mild atherosclerotic plaque formation of the origin of the left internal carotid artery with less than 50% cross sectional diameter stenosis. ALL ABOVE CRITERIA BY NASCET. There is calcified plaque formation of the right cavernous carotid artery, with a mild stenosis (less than 50%). ALL ABOVE CRITERIA BY NASCET. NECK: RIGHT COMMON CAROTID ARTERY: Unremarkable. No significant stenosis. No dissection or occlusion. RIGHT EXTRACRANIAL INTERNAL CAROTID ARTERY: Unremarkable. No significant stenosis. No dissection or occlusion. RIGHT EXTERNAL CAROTID ARTERY: Unremarkable. No occlusion. RIGHT EXTRACRANIAL VERTEBRAL ARTERY: Unremarkable. No significant stenosis. No dissection or occlusion. LEFT COMMON CAROTID ARTERY: Unremarkable. No significant stenosis. No dissection or occlusion. LEFT EXTRACRANIAL INTERNAL CAROTID ARTERY: See above. LEFT EXTERNAL CAROTID ARTERY: Unremarkable. No occlusion. LEFT EXTRACRANIAL VERTEBRAL ARTERY: Unremarkable. No significant stenosis. No dissection or occlusion. GREAT VESSELS OF AORTIC ARCH: There is calcified plaque formation of the left cavernous carotid artery, with a mild stenosis (less than 50%). ALL ABOVE CRITERIA BY NASCET. LUNG APICES: Unremarkable as visualized. HEAD and NECK: BONES/JOINTS: There are degenerative findings of the cervical spine. No discrete lytic or blastic abnormalities. SOFT TISSUES: Unremarkable. OTHER FINDINGS: Critical finding called and case discussed. CAROTID STENOSIS REFERENCE USING NASCET CRITERIA: % ICA stenosis = (1 - narrowest ICA diameter/diameter of distal cervical ICA) x 100. Mild - <50% stenosis. Moderate - 50-69% stenosis. Severe - 70-94% stenosis. Near occlusion - 95-99% stenosis. Occluded - 100% stenosis. CT/STROKE CTA Head AND Neck W/Con IMPRESSION: 1. There is mild atherosclerotic plaque formation of the origin of the left internal carotid artery with less than 50% cross sectional diameter stenosis. ALL ABOVE CRITERIA BY NASCET. 2. There is calcified plaque formation of the right cavernous carotid artery, with a mild stenosis (less than 50%). ALL ABOVE CRITERIA BY NASCET. 3. There is calcified plaque formation of the left cavernous carotid artery, with a mild stenosis (less than 50%). ALL ABOVE CRITERIA BY NASCET. 4. Thrombosed right M1 segment. Hyperdense right MCA sign. Electronically Signed: Markell Yeung MD at 14:34 EDT ,
--- NOTE | 2022-05-21 13:51 | EDS_ITS ---
HPI History of Present Illness Chief Complaint: Neuro S/Sx Detail of Chief Complaint: concern for stroke Informant: patient and EMS Narrative Narrative: Patient presents to the emergency department via EMS with concern for stroke. Patient was at a restaurant eating when her friends stated that she developed difficulty speaking. EMS on their arrival noted a facial droop and left sided weakness where she could not even lift her left arm. Patient does not feel that her speech is any different currently. She describes a mild headache behind her right eye. She denies being on any blood thinners. She does have history of hypertension. She denies any chest pain or shortness of breath. No prior stroke history. PFSH PFSH Home Medications amitriptyline 100 mg tablet 100 mg PO QHS 10/19/17 [History Last Taken Unknown] simvastatin 20 mg tablet 20 mg PO QHS 10/19/17 [History Last Taken Unknown] losartan 100 mg-hydrochlorothiazide 25 mg tablet 1 tab PO DAILY bp 02/23/18 [History Last Taken Unknown] potassium bicarbonate-citric acid 10 mEq effervescent tablet (Effer-K) 20 meq PO DAILY 02/23/18 [History Last Taken Unknown] calcium carbonate 500 mg calcium (1,250 mg) tablet (Oyster Shell Calcium 500) 500 mg PO DAILY@0800 03/06/18 [History Last Taken Unknown] magnesium oxide 500 mg capsule 250 mg PO DAILY 03/06/18 [History Last Taken Unk nown] vitamin B complex 1 ea PO DAILY 03/06/18 [History Last Taken Unknown] zinc amino acid chelate 50 mg tablet 50 mg PO DAILY 03/06/18 [History Last Taken Unknown] lysine 500 mg tablet 500 mg PO DAILY supplement 09/09/20 [History Last Taken Unknown] bhnqaomc-nnp-nkkxt acid 0.4 mg-lycopene 300 mcg-lutein 250 mcg tablet 1 ea PO DAILY 09/09/20 [History Last Taken Unknown] naproxen 220 mg-diphenhydramine 25 mg tablet 1 ea PO QHS sleep 09/09/20 [History Last Taken Unknown] timolol maleate 0.5 % eye gel forming solution 1 drp EACH EYE BID glaucoma 09/09/20 [History Last Taken Unknown] Allergy/AdvReac Type Severity Reaction Status Date / Time No Known Allergies Allergy Verified 09/11/20 12:03 Social History Smoking Status: Never smoker ROS ROS ED Review of Systems ROS Unobtainable: other Constitutional Constitutional ED: Reports lethargy; Denies chills, fever(s), sweats or weight loss Eyes Eyes: Denies blurry vision, change in vision or diplopia ENT ENT ED: Denies rhinorrhea or sore throat Cardiovascular Cardiovascular: Reports chest pain and racing heartbeat; Denies orthopnea Respiratory/Chest Respiratory/Chest: Reports dyspnea and dyspnea on exertion; Denies cough, orthopnea or sputum Gastrointestinal Gastrointestinal: Denies abdominal pain, diarrhea, nausea or vomiting Genitourinary Genitourinary ED: Denies dysuria, hematuria or urinary frequency Musculoskeletal Musculoskeletal: Denies arthralgias, back pain, myalgias or neck pain Integumentary Denies abscess, Abrasions or rash Neurologic Neurologic: Reports headache(s), weakness and other Details: Slurred speech Psychiatric Psychiatric: Denies anxiety, depression or suicidal thoughts Endocrine Endocrinology: Denies polydipsia, polyphagia or polyuria Hematologic/Lymphatic Hematologic/Lymphatic: Denies easy bleeding, easy bruising or lymphadenopathy Allergic/Immunologic Allergic/Immunologic ED: Denies mouth swelling, tongue swelling or urticaria EXAM Physical Exam Const Vital Signs: 05/21/22 14:02 05/21/22 14:13 05/21/22 14:13 Temperature 97.8 F Temperature Source Temporal Pulse Rate 85 85 Respiratory Rate 18 16 Blood Pressure 190/59 H 190/59 H Blood Pressure Mean 102 102 Pulse Ox 96 96 Oxygen Delivery Method Room Air Room Air Room Air Positive well nourished and well developed General Appearance ED: well developed and NAD HEENT Reports TM's clear and moist mucous membranes normocephalic and atraumatic; Negative for trauma or tenderness Tympanic Membrane ED: Yes TM's clear Eyes PERRL and EOMs intact bilaterally General Eye ED: Negative for pale conjunctiva or scleral icterus Neck no lymphadenopathy, supple and no JVD General: Negative for tenderness Chest Wall inspection of chest normal and palpation of chest normal Chest: Negative for tenderness Resp normal respiratory effort and clear to auscultation bilaterally Effort and Inspection: Negative for respiratory distress or pain with movement Auscultation: Negative for rhonchi, wheezes or diminished lung sounds Cardio regular rate, regular rhythm, S1 normal heart sound, S2 normal heart sound and no murmurs Peripheral Pulses: pulses 2+ throughout GI normal to inspection, nondistended, normoactive bowel sounds, soft to palpation, non-tender, non-distended and no masses Back/Spine no CVA tenderness and no thoracic nor lumbar tenderness Extremity normal to inspection General Extremety ED: Negative for edema General Extremity: Negative for edema Neuro oriented x3, CN's II-XII intact bilaterally, no sensory deficits noted and gait normal Neuro Narrative: Finger-nose and heel jenkins testing within normal limits. Patient does have some mild dysarthria. No facial droop noted. No focal weakness noted. NIH stroke scale was a 1. Sensorium / Orientation: awake, alert, oriented to person, oriented to place and oriented to time Motor Exam: strength 5/5 throughout and strength abnormal Psych mental status grossly normal Skin no rashes or lesions noted and no wounds STROKE Vital Signs/Narrative: Vital Signs Temp Pulse Resp BP Pulse Ox O2 Del Method 05/21/22 14:13 Room Air 05/21/22 14:13 85 16 190/59 H 96 Room Air 05/21/22 14:02 97.8 F 85 18 190/59 H 96 Room Air MDM MDM MDM Narrative Medical decision making narrative: IV line established on arrival. Patient had a stroke team called on arrival and she went directly to CT scanner. Radiology felt there was a hyperdense right MCA sign suggesting a thrombosed vessel. Patient was evaluated by stroke neurologist from [facility] who agreed with findings and recommended tPA. They asked that patient come down to their facility for possible thrombectomy versus inclusion in a clinical trial. Patient has no contraindication to tPA. Lab Data Attestation: I reviewed the patient's lab results. Labs: Laboratory Results - last 24 hr 05/21/22 14:16 WBC 8.4 RBC 4.44 Hgb 13.1 Hct 41.3 MCV 93.0 MCH 29.5 MCHC 31.7 L RDW Std Deviation 44.8 H RDW Coeff of Quy[place] 13.1 Plt Count 227 MPV 10.4 Immature Gran % (Auto) 0.500 Neut % (Auto) 60.3 Lymph % (Auto) 28.4 [place] % (Auto) 8.4 Eos % (Auto) 1.4 Baso % (Auto) 1.0 Absolute Neuts (auto) 5.1 Absolute Lymphs (auto) 2.38 Nucleated RBC % 0 Radiography Diagnostic Testing: Clinical Impression(s) from Imaging Studies Brain CT 05/21/22 13:49 IMPRESSION: There are no findings of an acute ischemic infarction. However, there is a hyperdense right MCA sign ingesting a thrombosed vessel. CTA recommended. Chronic involutional changes of the brain. Critical finding called and case discussed. Electronically Signed: Markell Yeung MD at 14:10 EDT , ADDENDUM: 05/21/22 1420 IMPRESSION: There are no findings of an acute ischemic infarction. However, there is a hyperdense right MCA sign ingesting a thrombosed vessel. CTA recommended. Chronic involutional changes of the brain. Critical finding called and case discussed. N.B. : The above Results were Read Back by Markell Yeung MD to Dr. Sky MD, and understanding confirmed on 05/21/2022 14:13:28 (ET). Electronically Signed: Markell Yeung MD at 14:10 EDT , EKG Initial EKG: Attestation: I personally reviewed and interpreted this EKG as follows: Comments: Sinus rhythm with a rate of 81 bpm with no acute ST segment changes Critical Care Time Critical care time (excluding procedures): 30-74 minutes, Discussing w/Patient &/or Family/Florist Helper, Discussing w/Consultants, Arranging Admission or Transfer, Performing Direct Patient Care at Bedside and - (30 minutes) Discharge Plan Triage Chief Complaint: Neuro S/Sx ED Provider: Anurag Swanson Dx/Rx/DC Orders Clinical Impression: Acute CVA (cerebrovascular accident), Hypertension, Dysarthria, Hypercholesterolemia Prescriptions: No Action simvastatin 20 MG tablet 20 mg PO QHS amitriptyline 100 MG tablet 100 mg PO QHS losartan-hydrochlorothiazide 1 EACH tablet 1 tab PO DAILY Label Comments: potassium bicarb-citric acid [Effer-K] 10 MEQ Tablet.Eff 20 meq PO DAILY calcium carbonate [Oyster Shell Calcium 500] 500 MG tablet 500 mg PO DAILY@0800 vitamin B complex 1 EACH capsule 1 ea PO DAILY magnesium oxide 500 MG capsule 250 mg PO DAILY zinc amino acid chelate 50 MG tablet 50 mg PO DAILY lysine 500 MG tablet 500 mg PO DAILY yrzpzqua-zga-UI-lycopen-lutein 1 EACH tablet 1 ea PO DAILY naproxen-diphenhydramine 1 EACH tablet 1 ea PO QHS timolol maleate 1 DROP gel forming solution 1 drp EACH EYE BID Primary Care Provider: Keo Rocha Referrals: Keo Rocha MD [Primary Care Provider] - Disposition Disposition: DC/Tx to Another Type of HCF
--- NOTE | 2022-05-21 14:04 | CM.ED ---
SW Note SW responded to Stroke Alert. Patient is in imaging. No family available. STANLEY updated triage staff that if family arrives this fiction writer can be contacted. Plan: Emotional support Denisa NAVARRO
[2022-05-21] MEDS: Labetalol (Prefilled) 20 MG/4 ML IV (14:19)
[2022-05-21 14:23] LABS: Absolute Lymphocyte Count 2.38 X10^3/uL (0.83-4.51); Absolute Neutrophil Count 5.1 X10^3/uL (2.0-7.7); Basophil# 0.08 X10^3/uL; Eosinophil# 0.12 X10^3/uL; Eosinophils% 1.4 % (0-5); Hematocrit 41.3 % (37-47); Hemoglobin 13.1 g/dL (12.0-15.0); Lymphocyte # 2.38 X10^3/ul (0.83-4.51); Lymphocyte % 28.4 % (19-41); Mean Corp Hgb Conc 31.7 g/dL (32-36); Mean Corpuscular Hgb 29.5 pg (27.0-32.0); Mean Platelet Vol. 10.4 fl (6.2-12.0); Monocyte% 8.4 % (0-10); NRBC Flagged by Analyzer 0 % (0-5); Neutrophil # 5.05 X10^3/uL (2.7-7.7); Neutrophil % 60.3 % (47-70); Platelet Count 227 K/mm3 (150-450); RBC Distribution Width CV 13.1 % (11.6-14.6); RBC Distribution Width SD 44.8 fl (35.1-43.9); Red Blood Count 4.44 M/mm3 (4.2-5.4); White Blood Count 8.4 K/mm3 (4.4-11.0)
[2022-05-21 14:37] LABS: International Normalized Ratio 1.1
[2022-05-21 14:38] LABS: Partial Thromboplast Time 27.1 Seconds (24.1-36.2)
--- NOTE | 2022-05-21 14:40 | NURSING ---
report given to [employer] at this time.
[2022-05-21 14:41] LABS: Anion Gap 4 (5-15); BUN 23 mg/dL (7-18); BUN/Creat Ratio 21.9 RATIO (10-20); Calcium,Total 8.9 mg/dL (8.5-10.1); Chloride 107 mmol/L (98-107); Creatinine, Serum 1.05 mg/dL (0.55-1.02); EST Glomerular Filtration Rate 54 mL/min (>60); Est Glom Filt Rate - Afr Amer 65 mL/min (>60); Estimated Creatinine Clearance 34.36 ml/min; Glucose 180 mg/dL (74-106); Potassium 3.9 mmol/L (3.5-5.1); Sodium Level 140 mmol/L (136-145); Troponin-I HS 6 pg/mL (3.0-54.0)
[2022-05-21] MEDS: LORazepam 2 MG/ML Syringe 1 MG IV (14:41)
== END 2022-05-21 14:50 | disposition other institution (70) ==
PROVIDERS: Emergency Provider Emergency Medicine; PCP Family Medicine; Visit Provider Emergency Medicine
DX: I63.233 Cerebral infarction due to unspecified occlusion or stenosis of bilateral carotid arteries (principal); R93.0 Abnormal findings on diagnostic imaging of skull and head, not elsewhere classified; R47.1 Dysarthria and anarthria; I10 Essential (primary) hypertension; E78.00 Pure hypercholesterolemia, unspecified; Z79.899 Other long term (current) drug therapy
CPT/HCPCS: 51702; 70450; 70496; 70498; 80048; 84484; 85025; 85610; 85730; 93005; 96365; 96375; 96376; 99285; J2997; Q9967

== ENCOUNTER 2022-06-21 13:00 | Outpatient (RCR) | payer MEDICARE, SELFPAY ==
--- NOTE | 2022-05-26 16:37 | HP.PTEVAL ---
Patient's Visit Information BRITTANI STEWART is a 77 year old F referred to Physical Therapy by [facility] with a diagnosis of stroke. Date of Evaluation: 05/26/22 Physical Therapist: Jonnathan Leung, DPT, OCS, CSCS - Visit Plan Frequency: 3x /Week Duration: 4-6 Weeks Plan: 3x/week for 3-4 weeks for ... 1. please teach UE and LE strength and core on gym machines and work to I at [facility](pt to attempt to get back into pool ex which she is comfortable doing herself). 2. Progress walking distance and stair tolerance. - Subjective Mariposa dtr present with her. I had a stroke 6 days ago on Monday and was life flighted to [place]. she was having lunch at [facility] and was not handling fork and glass well and kept leaning into friend and slurring and confused. Went to ER and life flight to [place] after MRI. Clot buster in ER. Had procedure through groin into brain and got clot out. No reason why it happened. Was in hospital for 4 days and then home. Still has L leg and arm soreness. Feels like she can use them well. Is right handed. L leg feels close to normal but hurts to lift it over threshold into car. SOB with long walks. Balance is less than it was prior, wants to improve it. Lives alone but family staying last few nights. Has steps with rail and can do it. Showered herself in tub without assistance but has pull bar. Dresses self , heal of shoe is challenging and shirt on can be challenging. Bathroom is I. Normally spends day in recliner watching TV. Not employed. Sleeping well except for incontinence which is baseline for her. No cane or walker needed currently. - Pain L arm and leg Pain Intensity (Out of 10): 4 Pain Intensity Range: 0, 5 Comment: lifting, reaching trasniently - Objective Walks slowly but steadily without AD into PT. Transfers with UE I bed and chair. Steps reciprocal up and using R down with two rails. UE AROM 130 L elevation and 140 R, otherwise AROM WFL B. weakness in abd and flexion on L slight vs R at 4- vs 4, elbow and hand AROM and strength WFL and symmetrical L to R. thumb to finger coordination is symmetrical. some soreness with use of L UE reaching in shoulder. Tired after 5 min walk in PT. LE AROM WFL and without pain. reflexes 2/3 patella and achilles. Sensation UE and LE WNL to gross light touch. Motor control seems intact. Slightly weak L funcitonally on steps but testing is symmetrical in knee, hip and ankle. coordination to reciprocal tapping and heel to jenkins is Ok B and symmetrical. - Balance/Special Test Scores Functional Gait Assessment Score: 25 % Disability: 16.6700 Lower Extremity Functional Score: 33 - Goals Goal 1:: Soreness in L UE and LE back to baseline Goal Time Frame: 2-4 Weeks Goal 2:: pt I in machine based gym exercises for LE and core and UE strength to take to Y. Goal Time Frame: 2-4 Weeks Goal 3:: Back to pool ex 2x/week Goal Time Frame: 2-4 Weeks Goal 4:: Pt climb and descend steps reciprocally with one rail Goal Time Frame: 2-4 Weeks Goal 5:: Pt feel 100% back to baseline mobility Goal Time Frame: 2-4 Weeks - Rehabilitation Potential Physical Therapy Diagnosis: weakness and fatigue after stroke Rehabilitation Potential: Good - Anticipated Interventions Patient/Client Instruction: Educate patient on: Condition, Plan of Care For the Purpose of:: To improve muscle performance and motor function, To increase tolerance to activity/condition/position, To improve gait and locomotor functions Therapeutic Exercise to Include: Strength training, Balance training, Gait and locomotor training For the Purpose of:: To decrease pain, To improve muscle performance and motor function, To increase tolerance to activity/condition/position, To improve ability of physical actions for home/community/work/leisure Thank you for the opportunity to evaluate your patient. For Medicare and Medicare HMO plans, please review the plan of care and approve it. It will need to be FAXED BACK to us at [phone] for Medicare purposes. For Medicare only, by signing this I certify the plan of care. Please let me know if there are questions or concerns regarding this plan of care. Physician Signature: Date:
--- NOTE | 2022-06-03 07:59 | HP.OTEVAL_ITS ---
Patient's Visit Information BRITTANI STEWART is a 77 year old F, referred to Occupational Therapy by [facility], with a diagnosis of Stroke. Date of Evaluation: 06/02/22 Occupational Therapist: Francoise Watt, LAMINER/Chris, CHT - Subjective Mariposa dtr present with her. I had a stroke 6 days ago on Monday and was life flighted to [place]. she was having lunch at [employer] and was not handling fork and glass well and kept leaning into friend and slurring and confused. Went to ER and life flight to [place] after MRI. Clot buster in ER. Had procedure through groin into brain and got clot out. No reason why it happened. Was in hospital for 4 days and then home. Still has L leg and arm soreness. Feels like she can use them well. Is right handed. L leg feels close to normal but hurts to lift it over threshold into car. SOB with long walks. Balance is less than it was prior, wants to improve it. Lives alone but family staying last few nights. Has steps with rail and can do it. Showered herself in tub without assistance but has pull bar. Dresses self , heal of shoe is challenging and shirt on can be challenging. Bathroom is I. Normally spends day in recliner watching TV. Not employed. pt states she was going to for pool exercise 1x a week. Sleeping well except for incontinence which is baseline for her. No cane or walker needed currently. [ End ] - Pain left shoulder 2 Pain Intensity Range: 4 - ROM ROM Comments: pt demo full ROM of UE. left UE lag after holding 5 sec - Strength Shoulder: flex peak force right 7# shoulder ex 14# 8# left 13# Elbow: right biceps 12# left 13# triceps right 15# left 17# Online Merchandising Specialist: right 45# left 45# Lateral Pinch: right 6# left 6# Tripod Pinch: right 4# left 4# Strength Comments: pt demo generalized weakness of UE - Cognitive Skills Follows Directions: Yes Oriented to (Check all that apply): Date - Attention Attention: Normal - Quick DASH-Disab of Arm,Shoulder& Hand Quick DASH Score: 47.7250 - Goals Goal:: pt will demo a increase in bilateral UB strength by 10# peak force of shoulder flex to increase her IND with ADLS and IADLs by hao. pt will demo the ability to place 3# wts on different levels in shelving demo increase in ind. with home tasks by hao. pt will demo good dyn standing for greater than 10 min to simulate home mtg as placing dishes away at IND and or precursor to grooming and other daily tasks by d/c - Rehabilitation General Assessment: pt demo with generalized weakness of UB and endurance limiting functional ADLs and mobility- pt would benefit from skilled OT services 2-3x week for 3-4 weeks. today therapist ed. pt on PRE with free wts gave handout pt demo performance of ex well- pt and dtr demo understanding anbd agree to POC. Rehabilitation Potential: Good - Anticipated Interventions Strengthening, Neuro Reeducation, Education re Diagnosis, Caregiver Training, Home Program - Visit Plan Frequency: 2-3x /Week Duration: 3 Weeks TEXT: Thank you for the opportunity to evaluate your patient. For Medicare and Medicare HMO plans, please review the plan of care and approve it. It will need to be FAXED BACK to us at [phone] for Medicare purposes. Please let me know if there are questions or concerns regarding this plan of care. Physician Signature: Date:
--- NOTE | 2022-06-17 13:19 | HP.PTDCSUM_ITS ---
It has been my pleasure to treat BRITTANI STEWART referred by [facility], with the diagnosis of stroke for a total of 9 visit(s). Discharge Date: 06/17/22 Please see the following information for a summary of their discharge status. Subjective: I did well. I got better. Stronger and can work out easier. Getting out of chair easier. Sleep is Ok. Activities are OK, working on [employer] in OT. No pain. Feels ready to go to her gym and has list of exercises. L arm and leg Pain Intensity (Out of 10): 0 % Improvement: 90 Objective/Function: +2 overall FGA, safe on steps with rail. Feel comfortable with workout on own and will take copy to her gym to continue I. Goal 1:: Soreness in L UE and LE back to baseline Goal Progress: Goal Met Goal 2:: pt I in machine based gym exercises for LE and core and UE strength to take to Y. Goal Progress: Goal Met Goal 3:: Back to pool ex 2x/week Goal Progress: heart monitor limits Goal 4:: Pt climb and descend steps reciprocally with one rail Goal Progress: up one rail, down to. Goal 5:: Pt feel 100% back to baseline mobility Goal Progress: 90 Plan: d/c Discharge Comments: will continue I workout at her community gym If there are questions or concerns regarding this patient's physical therapy, please feel free to call me at [phone]. Thank you for the referral of this patient. Sincerely, Jonnathan Leung, DPT, OCS, CSCS Balance/Gait/Functional tests - Balance/Special Test Scores Functional Gait Assessment Score: 27 % Disability: 10.0000 Lower Extremity Functional Score: 44
--- NOTE | 2022-06-21 15:23 | HP.OTDCSUM ---
It has been my pleasure to treat BRITTANI STEWART under orders from [facility], for the diagnosis of Stroke for a total of 7 visit(s). Please see the following information for a summary of their discharge status. % Improvement: 90 Objective/Function: pt demo good dynamic standing balance and endurance. pt demo functional strength WNL. pt has met OT goals at this time and is d.c Patient Goals: Regain Strength Goal:: pt will demo a increase in bilateral UB strength by 10# peak force of shoulder flex to increase her IND with ADLS and IADLs by d.c. pt will demo the ability to place 3# wts on different levels in shelving demo increase in ind. with home tasks by d.c. pt will demo good dyn standing for greater than 10 min to simulate home mtg as placing dishes away at IND and or precursor to grooming and other daily tasks by d/c Plan: D/C with health and wellness program Discharge Comments: pt was seen for 7 OT visits to establish an Ex routine for her to continue to increase her strength and healthy lifestyle. pt has met OT goals and is d.c at this time If there are questions or concerns regarding this patient's occupational therapy, please fell free to call me at [phone]. Thank you for the referral of this patient. Sincerely, Francoise Watt, OTR/L, CHT
== END 2022-06-21 19:00 | disposition home or self-care (01) ==
LOC: OT 13:00
PROVIDERS: PCP Family Medicine
DX: I69.331 Monoplegia of upper limb following cerebral infarction affecting right dominant side (principal); I69.334 Monoplegia of upper limb following cerebral infarction affecting left non-dominant side
CPT/HCPCS: 97110; 97162; 97164; 97166; 97530

== ENCOUNTER → 2022-07-15 | Outpatient (CLI) | payer MEDICARE, SELFPAY ==
[2022-07-15 15:52] LABS: Anion Gap 5 (5-15); BUN 23 mg/dL (7-18); BUN/Creat Ratio 23.1 RATIO (10-20); Calcium,Total 9.9 mg/dL (8.5-10.1); Chloride 106 mmol/L (98-107); EST Glomerular Filtration Rate 57 mL/min (>60); Est Glom Filt Rate - Afr Amer 69 mL/min (>60); Glucose 103 mg/dL (74-106); Potassium 4.3 mmol/L (3.5-5.1); Sodium Level 142 mmol/L (136-145)
== END | disposition home or self-care (01) ==
PROVIDERS: PCP Family Medicine; Visit Provider Internal Medicine Cardiovascular Disease
DX: I63.50 Cerebral infarction due to unspecified occlusion or stenosis of unspecified cerebral artery (principal); I34.1 Nonrheumatic mitral (valve) prolapse; E78.2 Mixed hyperlipidemia; I10 Essential (primary) hypertension
CPT/HCPCS: 36415; 80048

== ENCOUNTER → 2022-07-26 | Outpatient (CLI) | payer MEDICARE, SELFPAY ==
--- NOTE | 2022-07-26 08:48 | ECHOTEE_ITS ---
Reason For Study: TIA/CVA Medication THEA probe 6VT-D (SN [id number]) passed with minimal difficulty. No complications were noted. Cetacaine Topical [place] given X3 orally. Versed 1 mg given slow IVP. Fentanyl 50 mcg given slow IVP. Performed a rapid injection of agitated mix of 9 cc saline and 1cc air to assess for atrial septal defect. Left Ventricle Normal LV size. Left ventricular systolic function is normal. The estimated ejection fraction is 65 %. No regional wall motion abnormalities noted. Right Ventricle Normal RV size. The right ventricular wall motion is normal. Atria No doppler evidence for ASD. Bubble contrast study negative for right to left interatrial shunt. Normal left atrium. There is no sponatenous contrast in the left atrium. No thrombus is detected in the left atrial appendage. Normal right atrium. There is no sponatenous contrast in the right atrium. No right atrial/appendage thrombus identified. Mitral Valve There is no mitral annular calcification. Mild diffuse mitral valve thickening. Trivial mitral valve insufficiency. Tricuspid Valve Normal tricuspid valve. Trivial tricuspid valve insufficiency. Aortic Valve Trisinus/trileaflet aortic valve. Mild diffuse aortic valve thickening. Pulmonic Valve The pulmonic valve is not well visualized. Vessels Mild atherosclerosis of the aortic arch. Pericardium No pericardial effusion. ECHO/Echo Transesophageal (THEA) Interpretation Summary Left ventricular systolic function is normal. The estimated ejection fraction is 65 %. There is no sponatenous contrast in the left atrium. No thrombus is detected in the left atrial appendage. Mild diffuse mitral valve thickening. Trivial mitral valve insufficiency. Trivial tricuspid valve insufficiency. Mild diffuse aortic valve thickening. Bubble contrast study negative for right to left interatrial shunt. Mild atherosclerosis of the aortic arch. Ordering Physician: Uziel Escalona Referring Physician: Vesna ANGULO Performed By: Mina William RCS
--- NOTE | 2022-07-26 10:53 | HP.PCM_ITS ---
History and Physical Date of Admission: 07/26/22 [facility] [address] [place] [address] OFFICE VISIT Date of Service:? 07/15/22 MR#: [id number] Acct: [id number] Name:BRITTANI ORELLANA Rep #: [id number] : 1945 Provider: Dr. Uziel Escalona MD Age/Sex:? 77/F Location: [facility] [place] Status: Signed HPI HPI History of Present Illness Surgical H&P: Yes Details: This is a 77-year-old white female who presents today for outpatient cardiovascular consultation based upon concerns of a history of CVA status post rM1 occlusion-thrombectomy superimposed upon a history of MVP, hyperlipidemia, and hypertension for tertiary care center follow-up with a request for transesophageal echocardiogram.? She was evaluated locally and at [facility] in April 2022.? Per the hospital summary she presented locally based upon concerns of left facial droop, dysarthria, and left upper and lower extremity weakness on 05-21-2022.? She was subsequently treated with tPA.? She was transported via helicopter to [facility] for further evaluation.? She was initially enrolled in the ENDOLOW trial and randomized to the medical arm.? However she proceeded with worsening neurologic symptoms and on the same day subsequently underwent rM1 thrombectomy with TICI 3 revascularization. While at [facility] she underwent evaluation with a transthoracic echocardiogram.? Per the report it states that her the left ventricle was normal with LVEF of 60 to 65%, there was normal diastolic function for age, the right ventricle was normal in size and function, the atria were normal in size, there was no hemodynamically significant valvular heart disease, and the RSVP could not be estimated. She was recommended to have a transesophageal echocardiogram.? She was referred for subsequent local follow-up and evaluation and care of this issue. In the meantime she was released with a 30-day ambulatory event monitor.? She states she just returned to [facility].? She will be waiting for the results. She has been evaluated by cardiology in the past with Dr. Colt Leung and Dr. Kiet Chambers.? It appears in the past that she had undergone a previous transthoracic echocardiogram on 09-01-2011.? At that time per the report the left ventricle was normal with an LVEF of 60 to 65%, there was mild MR, aortic sclerosis with minimal to mild AI mild TR, mild pulmonary hypertension with an estimated peak PA systolic pressure of 39 mmHg, and a small pericardial effusion. It appears that she had a pharmacologic stress nuclear imaging study performed at [facility] on 01-19-2018.? The results are noted below. It also appears that she had a pharmacologic stress nuclear imaging study performed at [facility] on 12-28-2018.? Per the report the SPECT perfusion study was considered normal.? There was no evidence of inducible ischemia or scarred myocardium. According to a [facility] cardiology note from 08-02-2013 she had undergone diagnostic cardiac catheterization at [facility] in [place], [place] on 03-02-2012.? Per their report this was a right/left cardiac catheterization.? The right heart pressures were reported as normal.? The pulmonary capillary wedge pressure was reported at 14.? The pulmonary artery pressure was reported normal.? Her coronary arteries were completely normal . In the office today she had an ECG performed.? She was noted to be in sinus rhythm with poor R wave progression. Intake Vital Signs ? 05/21/2214:02 07/15/2213:25 07/15/2213:29 Height 5 ft 2 in 5 ft 2 in 5 ft 2 in Weight: ? ? 207 lb 6 oz BMI ? ? 37.9 BP ? ? 130/78 H Blood Pressure Location ? ? Lt brachial Position ? ? Sitting Respiration ? ? 16 Pulse ? ? 68 Pulse Source ? ? Auscultation Intake Visit Reasons:?Stroke/Self ref. Access Services Librarian Required: No Accompanied by: Son Allergies No Known Allergies Allergy (Verified 07/15/22 13:30) Medications simvastatin 20 mg tablet 20 mg PO QHS 10/19/17 [History Confirmed 07/15/22] calcium carbonate 500 mg calcium (1,250 mg) tablet (Oyster Shell Calcium 500) 500 mg PO DAILY@0800 03/06/18 [History Confirmed 07/15/22] vitamin B complex 1 ea PO DAILY 03/06/18 [History Confirmed 07/15/22] zinc amino acid chelate 50 mg tablet 50 mg PO DAILY 03/06/18 [History Confirmed 07/15/22] lysine 500 mg tablet 500 mg PO DAILY supplement 09/09/20 [History Confirmed 07/15/22] dbqscjbs-asv-gxyqb acid 0.4 mg-lycopene 300 mcg-lutein 250 mcg tablet 1 ea PO DAILY 09/09/20 [History Confirmed 07/15/22] timolol maleate 0.5 % eye gel forming solution 1 drp EACH EYE BID glaucoma 09/09/20 [History Confirmed 07/15/22] anastrozole 1 mg tablet 1 mg PO DAILY 07/08/22 [History Confirmed 07/15/22] ascorbic acid (vitamin C) 500 mg tablet 500 mg PO DAILY 07/08/22 [History Confirmed 07/15/22] aspirin 81 mg tablet,delayed release (Adult Low Dose Aspirin) 81 mg PO DAILY 07/08/22 [History Confirmed 07/15/22] cholecalciferol (vitamin D3) 50 mcg (2,000 unit) tablet 50 mcg PO BID 07/08/22 [History Confirmed 07/15/22] loratadine 10 mg tablet 10 mg PO DAILY 07/08/22 [History Confirmed 07/15/22] losartan 100 mg tablet 100 mg PO DAILY 07/08/22 [History Confirmed 07/15/22] sertraline 25 mg tablet 25 mg PO DAILY 07/08/22 [History Confirmed 07/15/22] PFS Medical History? Cerebrovascular accident (CVA) due to occlusion of cerebral artery Diverticulosis Essential hypertension GERD (gastroesophageal reflux disease) Kidney stones Malignant neoplasm of right breast Mixed hyperlipidemia CLAIRE (obstructive sleep apnea) Spinal stenosis Surgical History? History of abdominal surgery History of arthroscopy of left knee History of carpal tunnel surgery History of hand surgery History of hysterectomy History of left knee replacement History of lithotripsy History of lumpectomy of right breast (~08/2020) History of lymph node excision (~08/2020) History of partial knee replacement (~2003) History of partial mastectomy of right breast (~08/2020) History of right and left heart catheterization (LHC) (~03/02/12) Family History? Mother Congestive heart failure Hypertension DiabetesFather CAD (coronary artery disease) Myocardial infarction,? Onset Age: 60 CVA (cerebral vascular accident)Sister Heart disease Heart valve replacedBrother CAD (coronary artery disease) Myocardial infarction,? Onset Age: 60 Social History? Smoking Status:? Never smoker alcohol intake:? never substance use type:? does not use caffeine:? Yes Type: coffee Number of servings: 2 ROS Const Const: Positive for weakness (Lt sided weakness due to CVA); Negative for fatigue, body ache, fever(s), headache(s), chills, frequent falls, night sweats, daytime sleepiness, difficulty sleeping, excessive sweating, weight gain, weight loss, increased appetite, poor appetite, anorexia or other Eyes Eyes: Negative for blurry vision or double vision ENT ENT: Positive for dizziness (occasional while bending over); Negative for headache(s) or balance problems Cardio Chest Pain: No Palpitations: No Edema: None Muscle aches with walking: None Resp Respiratory: Positive for SOB with activity (baseline) and Cough (occasional productive); Negative for SOB at rest, SOB orthopnea\SOB lying down, Coughing up blood/hemoptysis, chest congestion, pain on inspiration, snoring, stridor, wheezing, crackles, paroxysmal nocturnal dyspnea or other Musc Musc: Positive for muscle aches/ myalgia (Rt UE) and muscle weakness (Lt sided); Negative for joint pain or balance problems Neuro Neuro: Positive for dizziness (occasional while bending over) and weakness (Lt sided weakness due to CVA); Negative for lightheadedness, near syncope, syncope, orthostatic symptoms, frequent falls, headache(s), confusion, memory loss, restless legs, blurry vision, double vision, vertigo, seizures, lack of coordination or other Endo Endo: Negative for fatigue or excessive sweating Cardiology Exam Const Appearance: cooperative, healthy appearing, comfortable, no acute distress, well developed and well groomed Nutritional Appearance: obese Orientation: alert, awake and oriented x3 Head Head: normal to inspection, normocephalic and atraumatic Ears: hearing grossly normal bilaterally Nose: external nose normal Face and Sinus: face symmetric Eyes Eyelids: eyelids normal Conjunctivae: conjunctivae normal Pupils: PERRL EOM: EOM intact bilaterally Neck Neck: normal visual inspection and full ROM Chest Chest inspection: normal inspection of the chest, symmetric chest movement and normal respiratory effort Auscultation: Bilateral: Clear to Auscultation Cardio Palpation: normal PMI Rate: regular rate Rhythm: regular rhythm Heart sounds: S1 normal and S2 normal GI GI: normal to inspection, soft, bowel sounds present and obese Neuro General: patient alert, patient awake, patient oriented x3 and moves all extremities Skin Skin: no rashes or lesions noted Extremities Pulses: Normal: Right Radial Pulse and Left Radial Pulse Lower Extremity Edema: None: Bilateral Psych Psychological: normal affect Supplemental Info Supplemental Information Stress test: 01-19-2018 Stress Test Report Pharmacologic myocardial perfusion stress test. 72-year-old lady with a history of chest pain. Stress protocol: Resting EKG demonstrates normal sinus rhythm with rate of 85 bpm normal intervals and noted resting blood pressure is 142/82 mmHg.? 0.4 mg of r egadenoson was infused per usual protocol followed by rapid intravenous saline flush injection continuous EKG monitoring was performed.? The maximum heart rate attained was noted to be 89 bpm which was 60% of maximum predicted heart rate.? The maximum workload attained was 1 metabolic equivalent.? At rest there were no ST or T-wave changes noted suggest abnormal flow reserve at peak infusion no ST or T-wave changes were noted suggest abnormal flow reserve.? No clinical angina was noted the resting blood pressure is 142/82 mmHg. Myocardial perfusion protocol. 14.4 mCi of technetium 99m sestamibi was injected.? 0.4 mg of regadenoson was infused per usual protocol peak infusion 44.7 mCi of technetium 99m sestamibi was injected.? Stress images were obtained stress and rest images were reconst ructed and compared in the short axis vertical long horizontal long axis.? Gated images were also obtained. Perfusion SPECT analysis. Review of the stress images demonstrate normal uptake of tracer noted in all areas of the myocardium.? The resting images similarly demonstrate normal uptake of tracer noted in all areas myocardium.? No areas of reversibility and is just ischemia.No previous infarct is noted. Gated SPECT analysis. The gated ejection fraction is 80%. Conclusion: Normal pharmacologic myocardial perfusion stress test. Preserved ejection fraction. Labs: ?? ? No Data to Display Diagnostics: ?? ? Electrocardiogram ? Stress Test NM ? Stress Test ? Pulmonary: ?? ? No Data to Display Assessment and Plan Assessment and Plan (1) Cerebrovascular accident (CVA) due to occlusion of cerebral artery: ?Status:?Acute ?Comment: Thrombectomy and revascularization of RM1 @ [facility] 05/21/22 ?Plan: She did undergo evaluation and care for CVA both locally and at [facility] as noted. At the present time she is going to continue her current medical therapy. She has recently returned a 30-day ambulatory event monitor to [facility].? The results are pending. She has been recommended by [facility] for a THEA.? The procedure and risk were discussed with her.? She was agreeable to this approach. (2) MVP (mitral valve prolapse): ?Status:?Acute ?Plan: She ports that her 3 of MVP. There is no comment on MVP with respect to her recent studies. She will continue her current therapy. She will proceed with further evaluation as noted. (3) Mixed hyperlipidemia: ?Status:?Acute ?Plan: She has a history of hyperlipidemia. She will continue her lipid-lowering medication. (4) Essential hypertension: ?Status:?Acute ?Plan: She has a history of hypertension. She will continue medical therapy. ? ? ? Orders: Orders 12 Lead EKG performed by [facility] Today E78.2 - Mixed hyperlipidemia, I10 - Essential (primary) hypertension ? COVID 19 AG RAPID (RN COLLECT) Today I63.50 - Cerebral infarction due to unspecified occlusion or stenosis of unspecified cerebral artery ? Basic Metabolic Profile (BMP) Today E78.2 - Mixed hyperlipidemia, I10 - Essential (primary) hypertension, I34.1 - Nonrheumatic mitral (valve) prolapse, I63.50 - Cerebral infarction due to unspecified occlusion or stenosis of unspecified cerebral artery ? Echo Transesophageal (THEA) Today E78.2 - Mixed hyperlipidemia, I10 - Essential (primary) hypertension, I34.1 - Nonrheumatic mitral (valve) prolapse, I63.50 - Cerebral infarction due to unspecified occlusion or stenosis of unspecified cerebral artery ? Plan Details Additional Comments: The above was discussed with the patient with her son present.? She was agreeable to this approach. Thank you for allowing me to participate in the care of your patient.? Please don't hesitate to call if any issues arise. This note was generated using a voice recognition system and there may be incorrect words, spelling or punctuation that were not noted when reviewing the office note prior to saving. Follow Up: ? ? 6 Weeks (PFM ) COVID (Procedure Consent) Procedure Criteria Procedure Criteria: Yes Elective The surgeon/proceduralist and patient have discussed in detail the risk of exposure to and/or potential harm posed by the COVID-19 virus with having a surgery/procedure at this time versus the risk of? delaying the surgery/procedure. It is not possible to know either the risk of delaying the surgery or procedure or chance of getting an infection with perfect accuracy, but a joint decision was made between the patient and the surgeon/proceduralist ?to proceed at this time with the scheduled surgery/procedure as indicated on the consent form. Coding Level of Care Code Off vis,new,level 4 Diagnoses Cerebrovascular accident (CVA) due to occlusion of cerebral artery? I63.50 MVP (mitral valve prolapse)? I34.1 Mixed hyperlipidemia? E78.2 Essential hypertension? I10 Coding Level of Care Code Off vis,new,level 4 Diagnoses Cerebrovascular accident (CVA) due to occlusion of cerebral artery? I63.50 MVP (mitral valve prolapse)? I34.1 Mixed hyperlipidemia? E78.2 Essential hypertension? I10 07/15/22 [id number] <Electronically signed by Uziel Escalona MD> Date Uziel Escalona MD Cosigner Signature: Date (if applicable) CC:? Dr. Keo Rocha MD ~ Assessment & Plan Addt'l Comments I have re-examined the patient. There are no clinical changes since date of exam. This note was generated using a voice recognition system and there may be incorrect words, spelling or punctuation that were not noted when reviewing the office note prior to saving.
== END | disposition home or self-care (01) ==
LOC: CVS 08:44
PROVIDERS: PCP Family Medicine; Referring Provider Internal Medicine Cardiovascular Disease; Visit Provider Internal Medicine Cardiovascular Disease
DX: I63.50 Cerebral infarction due to unspecified occlusion or stenosis of unspecified cerebral artery (principal); I34.1 Nonrheumatic mitral (valve) prolapse; E78.2 Mixed hyperlipidemia; I10 Essential (primary) hypertension; Z20.822 Contact with and (suspected) exposure to COVID-19
CPT/HCPCS: 87426; 93312; 93320; 93325; C9803; J7040; A4216

== ENCOUNTER → 2022-08-23 | Outpatient (CLI) | payer MEDICARE, SELFPAY | END | disposition home or self-care (01) | LOC: SL 21:53 | PROVIDERS: PCP Family Medicine; Referring Provider Psychiatry & Neurology Sleep Medicine; Visit Provider Psychiatry & Neurology Sleep Medicine | DX: G47.33 Obstructive sleep apnea (adult) (pediatric) (principal) | CPT/HCPCS: 95811 ==

== ENCOUNTER → 2022-09-09 | Outpatient (CLI) | payer MEDICARE, SELFPAY | END | disposition home or self-care (01) | LOC: SL 11:44 | PROVIDERS: PCP Family Medicine; Visit Provider Psychiatry & Neurology Sleep Medicine | DX: Z00.00 Encounter for general adult medical examination without abnormal findings (principal) ==

== ENCOUNTER → 2023-03-13 | Outpatient (CLI) | payer MEDICARE, SELFPAY ==
--- NOTE | 2023-03-13 15:15 | US_ITS ---
INDICATION: Urinary tract infection symptoms. EXAMINATION: Ultrasound Kidney(s) complete (eg, kidneys and bladder) TECHNIQUE: Bush scale and color doppler images were obtained of the kidneys. COMPARISON: None. FINDINGS: RIGHT KIDNEY: 10.9 x 4.6 x 4 cm. Borderline increased cortical echogenicity, cortical thickness 1.1 cm. There is no hydronephrosis. No shadowing calculus, focal lesion or perinephric collection is demonstrated. LEFT KIDNEY: 9.5 x 3.9 x 4.3 cm. Borderline increased cortical echogenicity, cortical thickness 1.3 cm. There is no hydronephrosis. No shadowing calculus, focal lesion or perinephric collection is demonstrated. URINARY BLADDER: Incompletely distended, 10 9 mL volume. Mildly increased wall thickness, 5 mm. Both ureteral jets are demonstrated. US/Kidney and Bladder IMPRESSION: No acute renal findings. Electronically Signed: Uziel Evans MD at 16:07 EDT ,
== END | disposition home or self-care (01) ==
PROVIDERS: PCP Family Medicine; Referring Provider Urology; Visit Provider Urology
DX: N39.0 Urinary tract infection, site not specified (principal)
CPT/HCPCS: 76770

== ENCOUNTER → 2023-11-22 | Outpatient (CLI) | payer MEDICARE, SELFPAY ==
--- NOTE | 2023-11-22 13:47 | CT_ITS ---
INDICATION: CHRONIC SINUSITIS EXAMINATION: CT SINUSES - CT Sinuses W/O Contrast Injection TECHNIQUE: Helically acquired images were obtained of the paranasal sinuses. A radiation dose optimization technique was used for this scan. IV Contrast dosage and agent: None RADIATION DOSAGE (If Supplied By Facility): CTDIvol = ( 33.06 ) mGy, DLP = ( 676.83 ) mGycm COMPARISON: Noncontrast CT scan of the brain of 10/20/2017. FINDINGS: FRONTAL SINUSES AND RECESSES: Loss of aeration with cortical thickening of the left frontal sinus. ETHMOID AIR CELLS: Moderate mucosal thickening of the ethmoid sinuses bilaterally. MAXILLARY SINUSES: Persistent diffuse mucosal thickening of the left maxillary sinus with cortical thickening consistent with chronic sinusitis. The right maxillary sinus is essentially clear. OSTIOMEATAL COMPLEXES: Patent but narrowed right ostiomeatal complex. Occluded on the left side. SPHENOID SINUSES: Loss of aeration and cortical thickening of the left sphenoid sinus consistent with chronic sinusitis. The right side is patent. SPHENOETHMOIDAL RECESSES: Patent on the right side and occluded on the left side.. ANCILLARY FINDINGS: NASAL TURBINATES: Mild hypertrophy of the inferior nasal turbinates bilaterally. NASAL SEPTUM: No significant septal deviation. ORBITS: Previous bilateral cataract surgery. VISUALIZED DENTITION: No periodontal osseous erosion. ANTERIOR CRANIAL FOSSA: Unremarkable. CT/Sinus/Facial Bone IMPRESSION: 1. Chronic sinusitis of the left frontal, ethmoids, left maxillary and left sphenoid sinuses with cortical thickening. 2. 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 Electronically Signed: Franki So MD at 14:41 EST ,
== END | disposition home or self-care (01) ==
LOC: CT 13:46
PROVIDERS: PCP Family Medicine; Referring Provider Otolaryngology; Visit Provider Otolaryngology
DX: J32.9 Chronic sinusitis, unspecified (principal)
CPT/HCPCS: 70486

== ENCOUNTER → 2023-11-23 | Outpatient (CLI) | payer MEDICARE, SELFPAY ==
--- OUTSIDE RECORDS SUMMARY | 2023-11-23 08:13 | XMS RPT_ITS | CCD ---
Author Name Unknown Address [address] [facility] [address] [facility] [address] [place] [address] Organization [facility] Care Team Providers Care Log Brander Name Role Phone Keo Angulo MD Primary Care Provider Ermais HERNANDEZ MD, Josh Unavailable Hollie RN, Akosua Unavailable Unavailable Keo Angulo MD Primary Care Provider Uziel Spencer DO Unavailable PROVIDER, UNKNOWN Attending Unavailable PROVIDER, UNKNOWN Admitting Unavailable Keo Angulo MD Primary Care Provider Ermias HERNANDEZ MD, Josh Unavailable Hollie RN, Akosua Unavailable Unavailable Keo Angulo MD Primary Care Provider PROVIDER, UNKNOWN Referring Unavailable KEO ANGULO Primary Care Unavailable KEO ANGULO Primary Care Unavailable ABBEY WHITE Attending Unavailable SELF, SELF Referring Unavailable SHARON CASTELLANOS Attending Unavailable SHARON CASTELLANOS Admitting Unavailable [facility] CARDIAC RESPIRATION, OTHER Refe rring Unavailable Keo Angulo MD Primary Care Provider Ermias HERNANDEZ MD, Josh Unavailable Doup RN, Akosua Unavailable Unavailable Hollie RN, Akosua Unavailable Unavailable KEO ANGULO Primary Care Unavailable HUSEYIN SANTIAGO JR Attending Unavailable KEO ANGULO Primary Care Unavailable REGINA NGUYEN Referring Unavailable KEO ANGULO Primary Care Unavailable KEO ANGULO Primary Care Unavailable ZOILA KAPLAN Referring Unavailable KEO ANGULO Primary Care Unavailable CANDY BENSON Attending Unavailable KEO ANGULO Primary Care Unavailable ADELE, KEO A Primary Care Unavailable ZOILA KAPLAN Attending Unavailable HUSEYIN SANTIAGO JR Referring Unavailable REGINA NGUYEN Referring Unavailable ADELE, KEO A Primary Care Unavailable ADELE, KEO A Primary Care Unavailable UZIEL SPENCER Referring Unavailable TAMMI DODSON Attending Unavailable JORDYN, TAMMI Referring Unavailable ADELE, KEO A Primary Care Unavailable TAMMI DODSON Attending Unavailable JORDYN, TAMMI Referring Unavailable ADELE, KEO A Primary Care Unavailable DODSON, TAMMI Referring Unavailable ADELE, KEO A Primary Care Unavailable DODSON, TAMMI Referring Unavailable ADELE, KEO A Primary Care Unavailable ADELE, KEO A Primary Care Unavailable ALEJANDRA BARCLAY Referring Unavailable DODSON, TAMMI Referring Unavailable ADELE, KEO A Primary Care Unavailable ADELE, KEO A Primary Care Unavailable REGINA NGUYEN Attending Unavailable PODLOGNIKKI CAMPBELL Attending Unavailable ADELE, KEO A Primary Care Unavailable ADELE, KEO A Primary Care Unavailable DANNY GUIDRY Attending Unavailable ADELE, KEO A Primary Care Unavailable DANNY GUIDRY Referring Unavailable DODSON, TAMMI Referring Unavailable ADELE, KEO A Primary Care Unavailable ADELE, KEO A Primary Care Unavailable NORMA CHILDS Attending Unavailable ADELE, KEO A Primary Care Unavailable DEBBIE VERDE Referring Unavailable ADELE, KEO A Primary Care Unavailable DEBBIE VERDE Attending Unavailable TAMMI DODSON Attending Unavailable JORDYN, TAMMI Referring Unavailable ADELE, KEO A Primary Care Unavailable ADELE, KEO A Primary Care Unavailable ZOILA KAPLAN Referring Unavailable ALEJANDRA BARCLAY Attending Unavailable ADELE, KEO A Primary Care Unavailable REGINA NGUYEN Attending Unavailable ADELE, KEO A Primary Care Unavailable ZOILA KAPLAN Referring Unavailable ADELE, KEO A Primary Care Unavailable Medications Current Medications Medication Drug Class(es) Dates Sig (Normalized) Sig (Original) aspirin 81 mg chewable tablet (20 sources) Platelet Aggregation Inhibitor, Nonsteroidal Anti-inflammatory Drug Start: 05-22-2022 End: 08-23-2022 aspirin 81 MG Chew Tab chewable tablet Chew 1 tablet daily. 30 tablet 2 05/25/2022 08/23/2022 Active Completed/Discontinued Medications Medication Drug Class(es) Dates Sig (Normalized) Sig (Original) acetaminophen 325 mg oral tablet (1 source) Start: 05-21-2022 End: 05-24-2022 take 1 tablet by mouth every four hours as needed acetaminophen (TYLENOL) tablet 650 mg anastrozole 1 mg oral tablet (20 sources) Aromatase Inhibitor Start: 09-25-2023 take 1 tablet by mouth once daily anastrozole (ARIMIDEX) 1 mg tablet Indications: Malignant neoplasm of upper-outer quadrant of right breast in female, estrogen receptor positive (HCC) (HCC) take 1 tablet by mouth once daily 90 tablet 3 09/25/2023 Active Problems Active Problems Problem Classification Problem Date Documented Da te Episodic/Chronic Acute cerebrovascular disease (20 sources) Ischemic stroke; Translations: [Cerebral infarction, unspecified] Onset: 2 Chronic Adjustment disorders (20 sources) Reactive depression (situational); Translations: [Adjustment disorder with depressed mood] Onset: 7 Chronic Allergic reactions (2 sources) H/O: non-drug allergy; Translations: [Allergy status to unspecified drugs, medicaments and biological substances status] 06-26-2023 Episodic Cancer of breast (20 sources) Malignant neoplasm of upper-outer quadrant of female breast; Translations: [Malignant neoplasm of upper-outer quadrant of right female breast] Onset: 0 01-14-2021 Chronic Disorders of lipid metabolism (20 sources) Mixed hyperlipidemia; Translations: [Mixed hyperlipidemia] Onset: 3 Chronic Diverticulosis and diverticulitis (20 sources) Diverticulosis of colon; Translations: [Diverticulosis of large intestine without perforation or abscess without bleeding] Onset: 8 07-09-2018 Chronic Esophageal disorders (20 sources) Gastroesophageal reflux disease without esophagitis; Translations: [Gastro-esophageal reflux disease without esophagitis] Onset: 9 Chronic Essential hypertension (20 sources) Essential hypertension; Translations: [Essential (primary) hypertension] Onset: 3 Chronic Fluid and electrolyte disorders (2 sources) Disorder of electrolytes; Translations: [Other disorders of electrolyte and fluid balance, not elsewhere classified] Onset: 2 Episodic Genitourinary symptoms and ill-defined conditions (20 sources) Urge incontinence of urine; Translations: [Urge incontinence] Onset: 5 07-05-2017 Chronic Glaucoma (20 sources) Glaucoma; Translations: [Unspecified glaucoma] Onset: 9 01-07-2019 Chronic Heart valve disorders (20 sources) Mitral valve prolapse; Translations: [Nonrheumatic mitral (valve) prolapse] Onset: 3 07-11-2019 Chronic Menopausal disorders (20 sources) Primary ovarian failure; Translations: [Other primary ovarian failure] Onset: 8 12-18-2018 Chronic Miscellaneous mental health disorders (20 sources) Primary insomnia; Translations: [Primary insomnia] Onset: 9 07-11-2019 Chronic Osteoarthritis (20 sources) Generalized arthritis; Translations: [Unspecified osteoarthritis, unspecified site] Onset: 8 01-04-2018 Chronic Other and ill-defined cerebrovascular disease (2 sources) Cerebrovascular disease; Translations: [Other cerebrovascular vasospasm and vasoconstriction] Onset: 2 Chronic Other and ill-defined cerebrovascular disease (1 source) Other cerebrovascular vasospasm and vasoconstriction; Translations: [Other cerebrovascular vasospasm and vasoconstriction] Onset: 2 Chronic Other bone disease and musculoskeletal deformities (1 source) Clavicle pain; Translations: [Other specified disorders of bone, shoulder] Episodic Other bone disease and musculoskeletal deformities (3 sources) Disorder of bone; Translations: [Other specified disorders of bone, unspecified site] 12-26-2022 Episodic Other circulatory disease (1 source) History of cerebrovascular accident; Translations: [Personal history of transient ischemic attack (TIA), and cerebral infarction without residual deficits] Episodic Other connective tissue disease (1 source) Pain in unspecified lower leg; Translations: [Pain and swelling of lower leg, unspecified laterality] Onset: 4 Episodic Other connective tissue disease (1 source) Other specified soft tissue disorders; Translations: [Pain and swelling of lower leg, unspecified laterality] Onset: 4 Episodic Other connective tissue disease (1 source) Pain in right thigh; Translations: [Right thigh pain] Onset: 3 Episodic Other gastrointestinal disorders (1 source) Pharyngeal dysphagia; Translations: [Dysphagia, pharyngeal phase] 11-03-2023 Episodic Other gastrointestinal disorders (1 source) Dysphagia, pharyngeal phase; Translations: [Pharyngeal dysphagia] Onset: 4 Episodic Other gastrointestinal disorders (1 source) Dysphagia, unspecified; Translations: [Difficulty swallowing solids] Onset: 3 Episodic Other lower respiratory disease (1 source) Dyspnea; Translations: [Dyspnea, unspecified] 07-10-2023 Episodic Other non-traumatic joint disorders (3 sources) Pain in left shoulder; Translations: [Pain in joint, shoulder region] Onset: 3 09-29-2023 Episodic Other nutritional; endocrine; and metabolic disorders (20 sources) Body mass index 40+ - severely obese; Translations: [Morbid (severe) obesity due to excess calories] Onset: 0 Chronic Other nutritional; endocrine; and metabolic disorders (20 sources) Obese class II; Translations: [Obesity, unspecified] Onset: 0 09-08-2022 Chronic Other nutritional; endocrine; and metabolic disorders (2 sources) Hypercalcemia; Translations: [Hypercalcemia] Chronic Other nutritional; endocrine; and metabolic disorders (1 source) Obesity caused by energy imbalance; Translations: [Other obesity due to excess calories] 06-26-2023 Chronic Other nutritional; endocrine; and metabolic disorders (1 source) Obesity, unspecified; Translations: [Obesity, Class II, BMI 35-39.9] Onset: 2 Chronic Other nutritional; endocrine; and metabolic disorders (1 source) Hypercalcemia; Translations: [Hypercalcemia] Onset: 3 Chronic Other screening for suspected conditions (not mental disorders or infectious disease) (5 sources) CT of chest abnormal; Translations: [Abnormal findings on diagnostic imaging of other specified body structures] Onset: 3 06-26-2023 Chronic Other screening for suspected conditions (not mental disorders or infectious disease) (20 sources) Patient encounter status; Translations: [Encounter for screening mammogram for malignant neoplasm of breast] Onset: 2 Episodic Other skin disorders (2 sources) Mass of thoracic structure; Translations: [Localized swelling, mass and lump, trunk] Episodic Residual codes; unclassified (20 sources) Obstructive sleep apnea syndrome; Translations: [Obstructive sleep apnea (adult) (pediatric)] Onset: 7 Chronic Residual codes; unclassified (2 sources) Obstructive sleep apnea (adult) (pediatric); Translations: [CLAIRE (obstructive sleep apnea)] Onset: 9 Chronic Residual codes; unclassified (5 sources) Hypoxia; Translations: [Idiopathic sleep related nonobstructive alveolar hypoventilation] Chronic Residual codes; unclassified (1 source) Idiopathic sleep related nonobstructive alveolar hypoventilation; Translations: [Sleep related hypoxia] Onset: 3 Chronic Residual codes; unclassified (1 source) Memory impairment; Translations: [Other amnesia] Episodic Spondylosis; intervertebral disc disorders; other back problems (20 sources) Degeneration of lumbar intervertebral disc; Translations: [Other intervertebral disc degeneration, lumbar region] Onset: 07-22-2021 Chronic Urinary tract infections (1 source) Acute urinary tract infection; Translations: [Urinary tract infection, site not specified] 06-16-2023 Episodic Past or Other Problems Problem Classification Problem Date Documented Da te Episodic/Chronic Administrative/social admission (20 sources) Advance directive discussed with patient; Translations: [Other specified counseling] Onset: 09-08-2022 09-08-2022 Episodic Calculus of urinary tract (20 sources) History of calculus of kidney; Translations: [Personal history of urinary calculi] Onset: 01-10-2022 01-10-2022 Episodic Diabetes mellitus without complication (20 sources) High hemoglobin A1c level; Translations: [Other abnormal glucose] Onset: 01-09-2018 Episodic Genitourinary symptoms and ill-defined conditions (6 sources) Dysuria; Translations: [Dysuria] Onset: 02-10-2023 Episodic Other bone disease and musculoskeletal deformities (20 sources) Senile osteopenia; Translations: [Other specified disorders of bone density and structure, unspecified site] Onset: 07-31-2018 07-31-2018 Episodic Other bone disease and musculoskeletal deformities (20 sources) Foot pain; Translations: [Other specified disorders of bone, ankle and foot] Onset: 01-14-2021 01-14-2021 Episodic Other bone disease and musculoskeletal deformities (1 source) Other specified disorders of bone density and structure, unspecified site; Translations: [Osteopenia, senile] Onset: 07-31-2018 Episodic Other bone disease and musculoskeletal deformities (1 source) Other specified disorders of bone, unspecified site; Translations: [Bone mass] Onset: 12-26-2022 Episodic Other connective tissue disease (20 sources) Triggering of digit; Translations: [Trigger finger, left ring finger] Onset: 07-09-2018 12-18-2018 Episodic Other lower respiratory disease (1 source) Dyspnea, unspecified; Translations: [Dyspnea and respiratory abnormalities] Onset: 07-20-2023 Episodic Other lower respiratory disease (1 source) Other abnormalities of breathing; Translations: [Dyspnea and respiratory abnormalities] Onset: 07-20-2023 Episodic Other non-traumatic joint disorders (20 sources) Shoulder pain; Translations: [Pain in right shoulder] Onset: 07-09-2018 07-09-2018 Episodic Other non-traumatic joint disorders (20 sources) Pain in right knee; Translations: [Pain in joint, lower leg] Onset: 01-14-2021 01-14-2021 Episodic Other non-traumatic joint disorders (18 sources) Pain in right shoulder; Translations: [Pain in joint, shoulder region] Onset: 07-09-2018 07-09-2018 Episodic Other skin disorders (1 source) Localized swelling, mass and lump, trunk; Translations: [Chest mass] Onset: 12-30-2022 Episodic Residual codes; unclassified (20 sources) FH: Myocardial infarction; Translations: [Family history of ischemic heart disease and other diseases of the circulatory system] Onset: 12-18-2018 Episodic Residual codes; unclassified (20 sources) Active living will ; Translations: [Other specified health status] Onset: 09-08-2022 09-08-2022 Episodic Residual codes; unclassified (1 source) Other amnesia; Translations: [Memory problem] Onset: 03-31-2023 Episodic Residual codes; unclassified (1 source) Estrogen receptor positive status [ER+]; Translations: [Malignant neoplasm of upper-outer quadrant of right breast in female, estrogen receptor positive (HCC)] Onset: 01-14-2021 Episodic Spondylosis; intervertebral disc disorders; other back problems (20 sources) Spinal stenosis of lumbar region; Translations: [Spinal stenosis, lumbar region without neurogenic claudication] Onset: 07-22-2021 Episodic Results Test Name Value Interpretation Reference Range Facil ity Vital Signs Date Time Vital Sign Value Performing Clinician Facility 11-03-2023 14:21-0500 Body height 154.9 cm Candy Benson MD Work Phone: [facility] 11-03-2023 14:21-0500 Body temperature 98.1 [degF] Candy Benson MD Work Phone: [facility] 11-03-2023 14:21-0500 Body weight 83.92 kg Candy Benson MD Work Phone: [facility] 11-03-2023 14:21-0500 Diastolic blood pressure 78 mm[Hg] Candy Benson MD Work Phone: [facility] 11-03-2023 14:21-0500 Heart rate 74 /min Candy Benson MD Work Phone: [facility] 11-03-2023 14:21-0500 SaO2% (BldA) [Mass fraction] 96 % Candy Benson MD Work Phone: [facility] 11-03-2023 14:21-0500 Systolic blood pressure 124 mm[Hg] Candy Benson MD Work Phone: [facility] 09-29-2023 10:35-0500 Body height 155 cm Lincoln Dodson [employer] FINISHER Work Phone: [facility] 09-29-2023 10:35-0500 Body temperature 99.39 [degF] Lincoln Dodson [employer]ER[employer]ERE[employer] FINISHER Work Phone: [facility] 09-29-2023 10:35-0500 Body weight 82.56 kg Lincoln Dodson [employer]ER[employer] FINISHER Work Phone: [facility] 09-29-2023 10:35-0500 Diastolic blood pressure 73 mm[Hg] Tammi Dodson [employer]ER[employer]OT[employer] FINISHER Work Phone: [facility] 09-29-2023 10:35-0500 Heart rate 73 /min Lincoln Dodson [employer] FINISHER Work Phone: [facility] 09-29-2023 10:35-0500 SaO2% (BldA) [Mass fraction] 97 % Lincoln Dodson [employer]ERE[employer] FINISHER Work Phone: [facility] 09-29-2023 10:35-0500 Systolic blood pressure 109 mm[Hg] Tammi Dodson [employer]ER[employer]YPE FINISHER Work Phone: [facility] 07-10-2023 13:59-0400 Body height 154.7 cm Alejandra Prince PA-C Work Phone: [facility] 07-10-2023 13:59-0400 Body weight 82.56 kg Alejandra Prince PA-C Work Phone: [facility] 07-10-2023 13:59-0400 Diastolic blood pressure 80 mm[Hg] Alejandra Prince PA-C Work Phone: [facility] 07-10-2023 13:59-0400 Heart rate 54 /min Alejandra Prince PA-C Work Phone: [facility] 07-10-2023 13:59-0400 Respiratory rate 12 /min Alejandra Prince PA-C Work Phone: [facility] 07-10-2023 13:59-0400 SaO2% (BldA) [Mass fraction] 96 % Alejandra Prince PA-C Work Phone: [facility] 07-10-2023 13:59-0400 Systolic blood pressure 138 mm[Hg] Alejandra Prince PA-C Work Phone: [facility] 07-10-2023 13:40-0400 Body height 154.7 cm Pulm Wstr Work Phone: [facility] 07-10-2023 13:40-0400 Body weight 82.56 kg Pulm Wstr Work Phone: [facility] 07-10-2023 13:40-0400 Heart rate 54 /min Pulm Wstr Work Phone: [facility] 07-10-2023 13:40-0400 Respiratory rate 12 /min Pulm Wstr Work Phone: [facility] 07-10-2023 13:40-0400 SaO2% (BldA) [Mass fraction] 96 % Pulm Wstr Work Phone: [facility] 06-26-2023 13:19-0400 Body weight 82.56 kg Zoila Kaplan MD Work Phone: [facility] 06-26-2023 13:19-0400 Diastolic blood pressure 84 mm[Hg] Zoila Kaplan MD Work Phone: [facility] 06-26-2023 13:19-0400 Heart rate 58 /min Zoila Kaplan MD Work Phone: [facility] 06-26-2023 13:19-0400 Respiratory rate 17 /min Zoila Kaplan MD Work Phone: [facility] 06-26-2023 13:19-0400 SaO2% (BldA) [Mass fraction] 96 % Zoila Kaplan MD Work Phone: [facility] 06-26-2023 13:19-0400 Systolic blood pressure 124 mm[Hg] Zoila Kaplan MD Work Phone: [facility] 06-16-2023 07:49-0400 Body temperature 98.01 [degF] Lita Sauer [employer]ER[employer] FINISHER Work Phone: [facility] 06-16-2023 07:49-0400 Body weight 81.65 kg Lita Sauer [employer]ER[employer] FINISHER Work Phone: [facility] 06-16-2023 07:49-0400 Diastolic blood pressure 78 mm[Hg] Lita Sauer [employer] L[employer]ER[employer] FINISHER Work Phone: [facility] 06-16-2023 07:49-0400 Heart rate 61 /min Lita Sauer [employer] L[employer]ER.[employer] FINISHER Work Phone: [facility] 06-16-2023 07:49-0400 SaO2% (BldA) [Mass fraction] 94 % Lita Sauer [employer] L[employer]ER.ST[employer]OTYPE FINISHER Work Phone: [facility] 06-16-2023 07:49-0400 Systolic blood pressure 124 mm[Hg] Lita Sauer [employer] LAYER.STEREOTYPE FINISHER Work Phone: [facility] 06-07-2023 12:14-0400 Body temperature 98.4 [degF] Rekha Powell [employer]ER[employer] FINISHER Work Phone: [facility] 06-07-2023 12:14-0400 Body weight 82.64 kg Rekha Praisler-Wood [employer]ER[employer] FINISHER Work Phone: [facility] 06-07-2023 12:14-0400 Diastolic blood pressure 74 mm[Hg] Rekha Praisler-Wood [employer] L[employer]ER.[employer] FINISHER Work Phone: [facility] 06-07-2023 12:14-0400 Heart rate 67 /min Rekha Praisler-Wood [employer]ER[employer] FINISHER Work Phone: [facility] 06-07-2023 12:14-0400 Respiratory rate 16 /min Rekha Praisler-Wood [employer]ER.[employer] FINISHER Work Phone: [facility] 06-07-2023 12:14-0400 SaO2% (BldA) [Mass fraction] 96 % Rekha Praisler-Wood [employer]ER.[employer]OT[employer] FINISHER Work Phone: [facility] 06-07-2023 12:14-0400 Systolic blood pressure 116 mm[Hg] Rekha Praisler-Wood [employer] L[employer]ER[employer]OT[employer] FINISHER Work Phone: [facility] 03-31-2023 13:28-0400 Body temperature 96.69 [degF] Huseyin Santiago Jr., MD Work Phone: [facility] 03-31-2023 13:28-0400 Body weight 81.65 kg Huseyin Santiago Jr., MD Work Phone: [facility] 03-31-2023 13:28-0400 Diastolic blood pressure 74 mm[Hg] Huseyin Santiago Jr., MD Work Phone: [facility] 03-31-2023 13:28-0400 Heart rate 55 /min Huseyin Santiago Jr., MD Work Phone: [facility] 03-31-2023 13:28-0400 Respiratory rate 18 /min Huseyin Santiago Jr., MD Work Phone: [facility] 03-31-2023 13:28-0400 SaO2% (BldA) [Mass fraction] 98 % Huseyin Santiago Jr., MD Work Phone: [facility] 03-31-2023 13:28-0400 Systolic blood pressure 114 mm[Hg] Huseyin Santiago Jr., MD Work Phone: [facility] 03-30-2023 13:50-0400 Body height 154 cm Tammi Dodson [employer]ER.[employer] FINISHER Work Phone: [facility] 03-30-2023 13:50-0400 Body temperature 98.01 [degF] Lincoln Dodson [employer] L[employer]ER.[employer]OT[employer] FINISHER Work Phone: [facility] 03-30-2023 13:50-0400 Body weight 81.87 kg Lincoln Dodson [employer] L[employer]ER.[employer] FINISHER Work Phone: [facility] 03-30-2023 13:50-0400 Diastolic blood pressure 64 mm[Hg] Lincoln Dodson [employer] LAYER.[employer]OT[employer] FINISHER Work Phone: [facility] 03-30-2023 13:50-0400 Heart rate 67 /min Lincoln Dodson [employer]LO[employer] LAYER.ST[employer]OT[employer] FINISHER Work Phone: [facility] 03-30-2023 13:50-0400 SaO2% (BldA) [Mass fraction] 97 % Tammi Dodson [employer] L[employer]ER.STEREOTYPE FINISHER Work Phone: [facility] 03-30-2023 13:50-0400 Systolic blood pressure 119 mm[Hg] Lincoln Dodson [employer] L[employer]ER.[employer]OT[employer] FINISHER Work Phone: [facility] 03-09-2023 12:27-0400 Body temperature 97.81 [degF] Regina BROWNE-C Work Phone: [facility] 03-09-2023 12:27-0400 Body weight 81.19 kg Regina BROWNE-C Work Phone: [facility] 03-09-2023 12:27-0400 Diastolic blood pressure 76 mm[Hg] Regina BROWNE-C Work Phone: [facility] 03-09-2023 12:27-0400 Heart rate 66 /min Regina BROWNE-C Work Phone: [facility] 03-09-2023 12:27-0400 Respiratory rate 18 /min Regina Nguyen PA-C Work Phone: [facility] 03-09-2023 12:27-0400 Systolic blood pressure 110 mm[Hg] Regina Nguyen PA-C Work Phone: [facility] 02-10-2023 09:41-0400 Body height 153.7 cm Danny Guidry [employer]ER[employer]OT[employer] FINISHER Work Phone: [facility] 02-10-2023 09:41-0400 Body temperature 97.11 [degF] Danny Guidry F[employer] LAYER.STEREOTYPE FINISHER Work Phone: [facility] 02-10-2023 09:41-0400 Body weight 82.1 kg Danny Guidry [employer] L[employer]ER.STEREOTYPE FINISHER Work Phone: [facility] 02-10-2023 09:41-0400 Diastolic blood pressure 74 mm[Hg] Danny Guidry FLO[employer] LAYER.STEREOTYPE FINISHER Work Phone: [facility] 02-10-2023 09:41-0400 Heart rate 69 /min Danny Guidry FLO[employer] LAYER.STEREOTYPE FINISHER Work Phone: [facility] 02-10-2023 09:41-0400 Respiratory rate 16 /min Danny Guidry FLOOR LAYER.STEREOTYPE FINISHER Work Phone: [facility] 02-10-2023 09:41-0400 SaO2% (BldA) [Mass fraction] 98 % Danny Guidry FLO[employer] LAYER.STEREOTYPE FINISHER Work Phone: [facility] 02-10-2023 09:41-0400 Systolic blood pressure 123 mm[Hg] Danny Zepedail [employer] LAYER.STEREOTYPE FINISHER Work Phone: [facility] 01-18-2023 07:35-0400 Body temperature 97.3 [degF] Regina Nguyen PA-C Work Phone: [facility] 01-18-2023 07:35-0400 Body weight 82.1 kg Regina Nguyen PA-C Work Phone: [facility] 01-18-2023 07:35-0400 Diastolic blood pressure 80 mm[Hg] Regina Nguyen PA-C Work Phone: [facility] 01-18-2023 07:35-0400 Heart rate 62 /min Regina Nguyen PA-C Work Phone: [facility] 01-18-2023 07:35-0400 Respiratory rate 16 /min Regina Nguyen PA-C Work Phone: [facility] 01-18-2023 07:35-0400 Systolic blood pressure 118 mm[Hg] Regina Nguyen PA-C Work Phone: [facility] 09-29-2022 13:54-0500 Body height 155 cm Tammi Dodson [employer] L[employer]ER.[employer]OT[employer] FINISHER Work Phone: [facility] 09-29-2022 13:54-0500 Body temperature 97.5 [degF] Tammi Dodson [employer] L[employer]ER.STEREOTYPE FINISHER Work Phone: [facility] 09-29-2022 13:54-0500 Body weight 88.91 kg Tammi Dodson FLOOR LAYER.STEREOTYPE FINISHER Work Phone: [facility] 09-29-2022 13:54-0500 Diastolic blood pressure 55 mm[Hg] Tammi Dodson FLOOR LAYER.STEREOTYPE FINISHER Work Phone: [facility] 09-29-2022 13:54-0500 Heart rate 62 /min Tammi Dodson FLOOR LAYER.STEREOTYPE FINISHER Work Phone: [facility] 09-29-2022 13:54-0500 SaO2% (BldA) [Mass fraction] 96 % Tammi Dodson FLOOR LAYER.STEREOTYPE FINISHER Work Phone: [facility] 09-29-2022 13:54-0500 Systolic blood pressure 105 mm[Hg] Tammi Dodson FLOOR LAYER.STEREOTYPE FINISHER Work Phone: [facility] 09-08-2022 13:43-0500 Body height 154.9 cm Keo Angulo MD Work Phone: [facility] 09-08-2022 13:43-0500 Body weight 88.45 kg Keo Angulo MD Work Phone: [facility] 09-08-2022 13:43-0500 Diastolic blood pressure 78 mm[Hg] Keo Angulo MD Work Phone: [facility] 09-08-2022 13:43-0500 Heart rate 52 /min Keo Angulo MD Work Phone: [facility] 09-08-2022 13:43-0500 Respiratory rate 16 /min Keo Angulo MD Work Phone: [facility] 09-08-2022 13:43-0500 Systolic blood pressure 120 mm[Hg] Keo Angulo MD Work Phone: [facility] 08-05-2022 08:08-0400 Body weight 91.63 kg Huseyin Santiago Jr., MD Work Phone: [facility] 08-05-2022 08:08-0400 Diastolic blood pressure 60 mm[Hg] Huseyin Santiago Jr., MD Work Phone: [facility] 08-05-2022 08:08-0400 Heart rate 73 /min Huseyin Santiago Jr., MD Work Phone: [facility] 08-05-2022 08:08-0400 Respiratory rate 20 /min Huseyin Santiago Jr., MD Work Phone: [facility] 08-05-2022 08:08-0400 SaO2% (BldA) [Mass fraction] 96 % Huseyin Santiago Jr., MD Work Phone: [facility] 08-05-2022 08:08-0400 Systolic blood pressure 103 mm[Hg] Huseyin Santiago Jr., MD Work Phone: [facility] 06-09-2022 06:57-0400 Body weight 98.43 kg Massiel Soliz APRN.CNP Work Phone: [facility] 06-09-2022 06:57-0400 Diastolic blood pressure 90 mm[Hg] Massiel Tannhof FLOOR LAYER.STEREOTYPE FINISHER Work Phone: [facility] 06-09-2022 06:57-0400 Heart rate 74 /min Massiel Tannhof FLOOR LAYER.STEREOTYPE FINISHER Work Phone: [facility] 06-09-2022 06:57-0400 Respiratory rate 16 /min Massiel Landonhof FLOOR LAYER.STEREOTYPE FINISHER Work Phone: [facility] 06-09-2022 06:57-0400 SaO2% (BldA) [Mass fraction] 94 % Massiel Tannhof FLOOR LAYER.STEREOTYPE FINISHER Work Phone: [facility] 06-09-2022 06:57-0400 Systolic blood pressure 138 mm[Hg] Massiel Tannhof FLOOR LAYER.STEREOTYPE FINISHER Work Phone: [facility] 06-01-2022 09:37-0400 Diastolic blood pressure 86 mm[Hg] Regina Nguyen PA-C Work Phone: [facility] 06-01-2022 09:37-0400 Heart rate 72 /min Regina Nguyen PA-C Work Phone: [facility] 06-01-2022 09:37-0400 Systolic blood pressure 154 mm[Hg] Regina Nguyen PA-C Work Phone: [facility] 06-01-2022 08:34-0400 Body temperature 98.4 [degF] Regina Nguyen PA-C Work Phone: [facility] 06-01-2022 08:34-0400 Body weight 99.79 kg Regina Nguyen PA-C Work Phone: [facility] 06-01-2022 08:34-0400 Respiratory rate 18 /min Regina Nguyen PA-C Work Phone: [facility] 05-24-2022 11:17-0400 Body height 160 cm Franklin Lloyd MD Work Phone: [facility] 05-24-2022 11:17-0400 Body mass index (BMI) [Ratio] 38.55 kg/m2 Franklin Lloyd MD Work Phone: [facility] 05-24-2022 11:17-0400 Body temperature 98.1 [degF] Franklin Lloyd MD Work Phone: [facility] 05-24-2022 11:17-0400 Body weight 98.7 kg Franklin Lloyd MD Work Phone: [facility] 05-24-2022 11:17-0400 Diastolic blood pressure 77 mm[Hg] Franklin Lloyd MD Work Phone: [facility] 05-24-2022 11:17-0400 Heart rate 75 /min Franklin Lloyd MD Work Phone: [facility] 05-24-2022 11:17-0400 Respiratory rate 18 /min Franklin Lloyd MD Work Phone: [facility] 05-24-2022 11:17-0400 SaO2% (BldA) [Mass fraction] 92 % Franklin Lloyd MD Work Phone: [facility] 05-24-2022 11:17-0400 Systolic blood pressure 168 mm[Hg] Franklin Lloyd MD Work Phone: [facility] 03-30-2022 13:31-0400 Body height 156.2 cm Tammi Dodson FLOOR LAYER.STEREOTYPE FINISHER Work Phone: [facility] 03-30-2022 13:31-0400 Body temperature 97.5 [degF] Tammi Dodson FLOOR LAYER.STEREOTYPE FINISHER Work Phone: [facility] 03-30-2022 13:31-0400 Body weight 95.25 kg Tammi Dodson FLOOR LAYER.STEREOTYPE FINISHER Work Phone: [facility] 03-30-2022 13:31-0400 Diastolic blood pressure 65 mm[Hg] Tammi Dodson FLOOR LAYER.STEREOTYPE FINISHER Work Phone: [facility] 03-30-2022 13:31-0400 Heart rate 63 /min Tammi Dodson FLOOR LAYER.STEREOTYPE FINISHER Work Phone: [facility] 03-30-2022 13:31-0400 Systolic blood pressure 128 mm[Hg] Tammi Dodson FLOOR LAYER.STEREOTYPE FINISHER Work Phone: [facility] 02-09-2022 13:55-0400 Body temperature 97.11 [degF] Regina Nguyen PA-C Work Phone: [facility] 02-09-2022 13:55-0400 Body weight 92.53 kg Regina Nguyen PA-C Work Phone: [facility] 02-09-2022 13:55-0400 Diastolic blood pressure 78 mm[Hg] Regina Nguyen PA-C Work Phone: [facility] 02-09-2022 13:55-0400 Heart rate 68 /min Regina Nguyen PA-C Work Phone: [facility] 02-09-2022 13:55-0400 Respiratory rate 18 /min Regina Nguyen PA-C Work Phone: [facility] 02-09-2022 13:55-0400 Systolic blood pressure 100 mm[Hg] Regina Nguyen PA-C Work Phone: [facility] Encounters Encounter Date Encounter Type Care Provider Facility Start: 11-03-2023 End: 11-04-2023 [facility] Facility:[facility] Start: 11-03-2023 End: 11-03-2023 Patient encounter procedure Candy Benson MD Work Phone: General Surgery Procedures Date Procedure Procedure Detail Performing Clinician Start: 09-04-2023 Screening digital br east tomosynthesis bi Tammi Dodson FLOOR LAYER.STEREOTYPE FINISHER Work Phone: Start: 07-10-2023 Nitric oxide gas determination Zoila Kaplan MD Work Phone: Start: 07-10-2023 Brncdilat rspse spmt ry pre&post-brncdilat admn Zoila Kaplan MD Work Phone: Start: 06-16-2023 Urnls dip stick/tabl et rgnt auto w/o microscopy Lita Sauer FLOOR LAYER.STEREOTYPE FINISHER Work Phone: Start: 06-07-2023 Urnls dip stick/tabl et rgnt auto w/o microscopy Casandra Vincent FLOOR LAYER.STEREOTYPE FINISHER Work Phone: Start: 02-10-2023 Urnls dip stick/tabl et rgnt auto w/o microscopy Danny Guidry FLOOR LAYER.STEREOTYPE FINISHER Work Phone: Start: 12-30-2022 Ct thorax w/contrast material Tammi Dodson FLOOR LAYER.STEREOTYPE FINISHER Work Phone: Start: 12-26-2022 Radex clavicle complete Tammi Dodson FLOOR LAYER.STEREOTYPE FINISHER Work Phone: Start: 09-08-2022 INFLUENZA SEASONAL QUADRIVALENT HIGH DOSE AGE 65+ Keo Angulo MD Work Phone: Start: 09-08-2022 PushCall-GPMESS COVI D-19 BIVALENT BOOSTER VACCINE, AGE 12+ YR Keo Angulo MD Work Phone: Start: 09-07-2022 Us breast uni real t ji with image limited Tammi Dodson FLOOR LAYER.STEREOTYPE FINISHER Work Phone: Start: 09-01-2022 TERRY SCREENING W AGUS Da andrew Dodson FLOOR LAYER.STEREOTYPE FINISHER Work Phone: Start: 08-31-2022 Mra head w/o contrst material Huseyin Santiago MD Work Phone: Start: 06-27-2022 Follow-up visit Follow-up ABBEY WHITE Start: 05-24-2022 CONTINUOUS CARDIAC MONITORING STRIP Other Other Start: 05-24-2022 Echo tthrc r-t 2d w/wom-mode compl spec&colr d Rajani Carmona FLOOR LAYER-STEREOTYPE FINISHER Work Phone: Start: 05-24-2022 Assay of magnesium Ulises Varner FLOOR LAYER-STEREOTYPE FINISHER Work Phone: Start: 05-23-2022 CONTINUOUS CARDIAC MONITORING STRIP Other Other Start: 05-23-2022 Glucose measurement, blood Sharon Castellanos MD Work Phone: Start: 05-23-2022 Glucose measurement, blood Sharon Castellanos MD Work Phone: Start: 05-23-2022 Assay of magnesium Ulises Varner FLOOR LAYER-STEREOTYPE FINISHER Work Phone: Start: 05-22-2022 Glucose measurement, blood Sharon Castellanos MD Work Phone: Start: 05-22-2022 Glucose measurement, blood Sharon Castellanos MD Work Phone: Start: 05-22-2022 Ct head/brain w/o co ntrast material Michele Erin Kingsley DO Work Phone: Start: 05-22-2022 Glucose measurement, blood Sharon Castellanos MD Work Phone: Start: 05-22-2022 Glucose measurement, blood Sharon Castellanos MD Work Phone: Start: 05-22-2022 ABORH TYPE RECONFIRMATION Chase Hidalgo MD Work Phone: Start: 05-22-2022 End: 05-22-2022 Antibody screen Franklin Lloyd MD Work Phone: Plan of Treatment Date Care Activity Detail Author Start: 03-09-2026 DIABETES SCREEN DIABETES SCREEN [facility] Start: 03-09-2026 Diabetes Screening Diabetes Screenin g [facility] Start: 09-08-2025 DIABETES SCREEN DIABETES SCREEN [facility] Start: 05-22-2025 DIABETES SCREEN DIABETES SCREEN [facility] Start: 02-09-2025 DIABETES SCREEN DIABETES SCREEN [facility] Start: 11-03-2024 BP Controlled (<130/80) BP Controlle d (<130/80) [facility] Start: 09-29-2024 BP Controlled (<130/80) BP Controlle d (<130/80) [facility] Start: 09-18-2024 Annual PCP Team Casual Shoe Inspector santhosh Disease Visit Annual PCP Team Chronic Disease Visit [facility] Start: 09-07-2024 Colonoscopy COLONOSCOPY [facility] Start: 09-07-2024 COLORECTAL CANCER SCREENING COLORECTAL CANCER SCREENING [facility] Start: 09-07-2024 Screening for malign ant neoplasm of colon [facility] Start: 09-06-2024 Annual PCP Team Casual Shoe Inspector santhosh Disease Visit Annual PCP Team Chronic Disease Visit [facility] Start: 09-06-2024 BP Controlled (<130/80) BP Controlle d (<130/80) [facility] Start: 07-22-2024 DIABETES SCREEN DIABETES SCREEN [facility] Start: 06-16-2024 BP CONTROLLED (<130/80) BP CONTROLLE D (<130/80) [facility] Start: 06-07-2024 BP CONTROLLED (<130/80) BP CONTROLLE D (<130/80) [facility] Start: 03-31-2024 BP CONTROLLED (<130/80) BP CONTROLLE D (<130/80) [facility] Start: 03-30-2024 BP CONTROLLED (<130/80) BP CONTROLLE D (<130/80) [facility] Start: 03-09-2024 ANNUAL PCP TEAM GUARDIAN FAMILY MEMBER SANTHOSH DISEASE VISIT ANNUAL PCP TEAM CHRONIC DISEASE VISIT [facility] Start: 03-09-2024 BP CONTROLLED (<130/80) BP CONTROLLE D (<130/80) [facility] Start: 02-11-2024 ANNUAL PCP TEAM [employer] SANTHOSH DISEASE VISIT ANNUAL PCP TEAM CHRONIC DISEASE VISIT [facility] Start: 02-11-2024 BP CONTROLLED (<130/80) BP CONTROLLE D (<130/80) [facility] Start: 01-19-2024 ANNUAL PCP TEAM [employer] SANTHOSH DISEASE VISIT ANNUAL PCP TEAM CHRONIC DISEASE VISIT [facility] Start: 01-10-2024 BP CONTROLLED (<130/80) BP CONTROLLE D (<130/80) [facility] Start: 12-26-2023 BP CONTROLLED (<130/80) BP CONTROLLE D (<130/80) [facility] Start: 10-30-2023 Advance Directive Discussion Advance Directive Discussion [facility] Start: 09-29-2023 BP CONTROLLED (<130/80) BP CONTROLLE D (<130/80) [facility] Start: 09-08-2023 ANNUAL PCP TEAM [employer] SANTHOSH DISEASE VISIT ANNUAL PCP TEAM CHRONIC DISEASE VISIT [facility] Start: 09-08-2023 BP CONTROLLED (<130/80) BP CONTROLLE D (<130/80) [facility] Start: 09-08-2023 SHINGRIX VACCINE (2 of 3) SHINGRIX V ACCINE (2 of 3) [facility] Immunizations Immunization Date Immunization Notes Care Provider Joce heck 08-08-2023 COVID-19 vaccine, ag e 12+ yr, season (PFIZER-BIONTECH) Screen [facility] 07-24-2023 zoster vaccine recombinant Screen [facility] 02-08-2023 zoster vaccine recombinant Screen [facility] 09-08-2022 COVID-19 booster vaccine, age 12+ yr, bivalent (PFIZER-BIONTECH) Tammi Dodson APRN.CNP Work Phone: [facility] 09-08-2022 influenza, high-dose , quadrivalent vaccine (FLUZONE HIGH DOSE QUADRIVALENT) Tammi Dodson APRN.CNP Work Phone: [facility] 09-08-2022 influenza virus vacc ine, unspecified formulation Ct (I-Stat) Work Phone: [facility] 07-22-2021 influenza, high-dose , quadrivalent vaccine (FLUZONE HIGH DOSE QUADRIVALENT) Regina Nguyen PA-C Work Phone: [facility] 07-22-2021 influenza virus vacc ine, unspecified formulation Franklin Lloyd MD Work Phone: [facility] 01-12-2021 COVID-19 vaccine (MARCELA) Regina Nguyen PA-C Work Phone: [facility] Work Phone: 08-10-2020 influenza, high-dose , quadrivalent vaccine (FLUZONE HIGH DOSE QUADRIVALENT) Regina Nguyen PA-C Work Phone: [facility] 08-10-2018 influenza, high dose seasonal, preservative-free Regina Nguyen PA-C Work Phone: [facility] 07-09-2018 pneumococcal polysaccharide vaccine, 23 valent Regina Nguyen PA-C Work Phone: [facility] 07-30-2017 influenza, high dose seasonal, preservative-free Regina Nguyen PA-C Work Phone: [facility] 09-01-2015 influenza, seasonal, injectable, preservative free Regina Nguyen PA-C Work Phone: [facility] 03-10-2015 pneumococcal conjuga te vaccine, 13 valent Regina Nguyen PA-C Work Phone: [facility] 08-05-2013 influenza, seasonal, injectable, preservative free Regina Nguyen PA-C Work Phone: [facility] 04-17-2013 hepatitis B vaccine, adult dosage Regina Nguyen PA-C Work Phone: [facility] 11-23-2012 hepatitis B vaccine, adult dosage Regina Nguyen PA-C Work Phone: [facility] 10-15-2012 hepatitis B vaccine, adult dosage Regina Nguyen PA-C Work Phone: [facility] 09-13-2012 influenza, seasonal, injectable, preservative free Regina Nguyen PA-C Work Phone: [facility] 09-12-2011 zoster vaccine, live Regina Nguyen PA-C Work Phone: [facility] 08-21-2009 influenza virus vacc ine, whole virus Regina Nguyen PA-C Work Phone: [facility] 07-23-2009 pneumococcal polysaccharide vaccine, 23 valent Regina Nguyen PA-C Work Phone: [facility] 09-28-2007 influenza virus vacc ine, whole virus Regina Nguyen PA-C Work Phone: [facility] 08-02-2000 diphtheria and tetan us toxoids, adsorbed for pediatric use Regina Nguyen PA-C Work Phone: [facility] Payers Date Payer Category Payer Unknown [id number] 2022 Medicare [id number] 2022 Medicare [facility] AARP MEDICAR E [facility] AARP MEDICARE HMO [id number] 2022-Present [phone] [address] [address] [place] [address] HMO [id number] 2022 Medicare [id number] 2021 Medicare [employer] MEDICARE [employer] MEDICARE PPO [id number] 2021-Present [phone] [address] [address] [place] [address] PPO [id number] 1945 Unknown [id number] 1945 Unknown [id number] 1945 Unknown [id number] Social History Date Type Detail Facility Start: 08-02-2013 End: 06-09-2022 Tobacco smoking status NHIS Never smoked tobacco [facility] Start: 08-02-2013 End: 06-09-2022 Tobacco use and exposure Smokeless tobacco non-user [facility] Start: 02-09-2022 End: 11-03-2023 Alcohol intake Current non-drinker of alcohol (finding) [facility] Start: 1945 Sex Assigned At Female C [facility] Work Phone: Start: 01-30-2022 End: 09-08-2022 Exposure to SARS-CoV-2 (event) Not sure [facility] Tobacco smoking stat us WIIS [facility] 1945 Sex Assigned At Not on file [facility] Start: 03-09-2023 End: 03-31-2023 History of Social function [facility] Start: 03-09-2023 End: 03-31-2023 Tobacco use panel [facility] Adult Depression Screening Assessment 2 [facility] Start: 08-10-2020 Gender identity Identifies as female gender (finding) [facility] Work Phone: Start: 08-10-2020 Sexual orientation Heterosexual ([facility]) [facility] Work Phone: Medical Equipment Procedure Code Equipment Code Equipment Origin al Text Equipment Identifier Dates Device Closure Cordis Mynxgrip 6-7fr Balloon Catheter - [id number] Start: 05-21-2022 Clinical Notes 08-02-2013 to 11-03-2023 Candy Benson MD - 11/03/2023 2:23 PM Meseret Lagunas LPN - 11/03/2023 2:21 PM Tori Dailey RT(R) - 09/29/2023 11:20 AM Tammi Kwan APRN.STEREOTYPE FINISHER - 09/29/2023 10:51 AM EST Note Date & Type Note Facility 11-03-2023 Note HNO ID: [id number] Author: CANDY BENSON MD Service: ? Author Type: Physician Type: Progress Notes Filed: 11/05/2023 11:31 Note Text: Brittani Sage 1945 REFERRING PHYSICIAN: No ref. provider found CHIEF COMPLAINT: Consult (Difficulty swallowing, no prior EGD) HPI: The patient is a 78 year old female presents with complaint of difficulty swallowing. She states that she would eat crackers and then chokes on them and would have to re-swallow them with liquids. She points to her throat area as to the area where things get stuck I have explained to her that she would best benefit by a laryngoscopy, as an EGD can only evaluate from the esophagus to the duodenum and she has pharyngeal dysphagia. She also notes occasional hoarseness. She denies previous EGD, she denies heartburn. PAST MEDICAL HISTORY Diagnosis Date Advance directive discussed with patient 09/08/2022 Discussed 08/2022: patient to bring in copies Arthritis Carcinoma of upper-outer quadrant of right female breast (HCC) 08/2020 Chronic pain of both knees 01/14/2021 CVA (cerebral vascular accident) (HCC) 05/23/2022 05/21/2022 DDD (degenerative disc disease), lumbar 07/22/2021 Diverticulosis of colon 07/09/2018 Elevated hemoglobin A1c 01/09/2018 Essential hypertension 08/02/2013 Family history of GA (myocardial infarction) 12/18/2018 Dad and Brother in their 60's Generalized arthritis 01/04/2018 GERD without esophagitis 12/18/2018 Glaucoma 01/07/2019 History of kidney stones 01/10/2022 Living will on file at physician's office 09/08/2022 DPA: Jewel (son) Lumbar spinal stenosis 02/2020 Malignant neoplasm of upper-outer quadrant of right breast in female, estrogen receptor positive (HCC) ([facility]) 09/30/2020 Mixed hyperlipidemia 08/02/2013 MVP (mitral valve prolapse) 08/02/2013 Obesity, Class II, BMI 35-39.9 08/10/2020 Obesity, Class III, BMI 40-49.9 (morbid obesity) ([facility]) 08/10/2020 CLAIRE (obstructive sleep apnea) Osteopenia, senile 07/31/2018 Pain in metatarsus of both feet 01/14/2021 dorsaly Primary insomnia 01/07/2019 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 Recurrent UTI 01/08/2015 Situational depression 02/04/2017 Trigger finger, left ring finger 07/09/2018 Urge incontinence 01/08/2015 Urinary incontinence PAST SURGICAL HISTORY Procedure Laterality Date ABDOMINAL SURGERY HX ARTHRP KNE CONDYLEANDPLATU MEDIALANDLAT COMPARTMENTS Left 2005 BREAST LUMPECTOMY HX Right 09/11/2020 BREAST SURGERY HX BX/EXC LYMPH NODE OPEN DEEP AXILLARY NODE Right 08/2020 CARPAL TUNNEL CEREBROVASCULAR THROMBECTOMY 05/21/2022 brain- CVA COLONOSCOPY COLONOSCOPY FLX DX W/COLLJ SPEC WHEN PFRMD 09/07/2021 CYSTOCELE REPAIR EXCISION GANGLION WRIST DORSAL/VOLAR PRIMARY EYE SURGERY HX HAND SURGERY HX thumgb surg HYSTERECTOMY HX N/A 1991 JOINT REPLACEMENT HX LEXISCAN STRESS TEST 12/28/2018 negative LITHOTRIPSY / 1 SIDE MASTECTOMY, PARTIAL Right 08/2020 PAST SURGICAL HISTORY OF Right 2004 Partial Right Knee Replacement REPAIR RECTOCELE SEPARATE PROCEDURE STRESS TEST 01/19/2018 normal VAGINAL HYSTERECTOMY Current Outpatient Medications Medication Sig anastrozole (ARIMIDEX) 1 mg tablet take 1 tablet by mouth once daily omeprazole (PRILOSEC) 20 mg capsule Take 1 capsule by mouth daily before breakfast. 1/2 hr before meal. simvastatin (ZOCOR) 20 mg tablet Take 1 tablet by mouth once daily. losartan (COZAAR) 100 mg tablet Take 1 tablet by mouth once daily. traZODone (DESYREL) 50 mg tablet Take 1 tablet by mouth daily at bedtime. (Patient taking differently: Take 50 mg by mouth two times a day.) CPAP/BIPAP/OTHER Auto PAP 7-12 cmH2O with humidification. Lifetime supplies. glycerin-min oil-polycarbophil (REPLENS) gel Use 1 application vaginally Every 3 Days. vibegron (GEMTESA) 75 mg tablet Take 1 tablet by mouth once daily. Per Urology: Dr. Vazquez Oxyquinoline-Na Lauryl Sulfate (TRIMO-GIRON JELLY) 0.025-0.01 % gel Use vaginally one time a week. Per Urology: Dr. Vazquez aspirin, enteric coated (ASPIRIN, ENTERIC COATED) 81 mg EC tablet Take 81 mg by mouth once daily. ascorbic acid (VITAMIN C ORAL) Take 1 tablet by mouth once daily. loratadine (CLARITIN) 10 mg tablet Take 10 mg by mouth once daily. timolol maleate (TIMOPTIC) 0.5 % drpd Use 1 Drop in both eyes twice daily. cholecalciferol (VITAMIN D3) 50 mcg (2,000 unit) tablet Take 2,000 Units by mouth twice daily. zinc Take by mouth once daily. vitamin b complex tab Take 1 tablet by mouth once daily. Iucugurwcswph-Ngrgtffa-Zvegft (CENTRUM SILVER) tab Take 1 tablet by mouth once daily. Calcium Carbonate 500 mg calcium (1,250 mg) capsule Take 1,250 mg by mouth twice daily with meals. (Patient not taking: Reported on 11/03/2023) Current Facility-Administered Medications Medication Dose Route Frequency perflutren lipid microspheres 1.3 mL in NaCl (PF) 0.9% 10 mL injection (DEFINITY) INTRAVENOUS DIRECTED PRN sodium c (more content not included)... [facility] 11-03-2023 History of Present illness Narrative Brittani Sage 1945 REFERRING PHYSICIAN: No ref. provider found CHIEF COMPLAINT: Consult (Difficulty swallowing, no prior EGD) HPI: The patient is a 78 year old female presents with complaint of difficulty swallowing. She states that she would eat crackers and then chokes on them and would have to re-swallow them with liquids. She points to her throat area as to the area where things get stuck I have explained to her that she would best benefit by a laryngoscopy, as an EGD can only evaluate from the esophagus to the duodenum and she has pharyngeal dysphagia. She also notes occasional hoarseness. She denies previous EGD, she denies heartburn. PAST MEDICAL HISTORY Diagnosis Date Advance directive discussed with patient 09/08/2022 Discussed 08/2022: patient to bring in copies Arthritis Carcinoma of upper-outer quadrant of right female breast ([facility]) 08/2020 Chronic pain of both knees 01/14/2021 CVA (cerebral vascular accident) ([facility]) 05/23/2022 05/21/2022 DDD (degenerative disc disease), lumbar 07/22/2021 Diverticulosis of colon 07/09/2018 Elevated hemoglobin A1c 01/09/2018 Essential hypertension 08/02/2013 Family history of GA (myocardial infarction) 12/18/2018 Dad and Brother in their 60's Generalized arthritis 01/04/2018 GERD without esophagitis 12/18/2018 Glaucoma 01/07/2019 History of kidney stones 01/10/2022 Living will on file at physician's office 09/08/2022 DPA: Jewel (son) Lumbar spinal stenosis 02/2020 Malignant neoplasm of upper-outer quadrant of right breast in female, estrogen receptor positive ([facility]) ([facility]) 09/30/2020 Mixed hyperlipidemia 08/02/2013 MVP (mitral valve prolapse) 08/02/2013 Obesity, Class II, BMI 35-39.9 08/10/2020 Obesity, Class III, BMI 40-49.9 (morbid obesity) ([facility]) 08/10/2020 CLAIRE (obstructive sleep apnea) Osteopenia, senile 07/31/2018 Pain in metatarsus of both feet 01/14/2021 dorsaly Primary insomnia 01/07/2019 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 Recurrent UTI 01/08/2015 Situational depression 02/04/2017 Trigger finger, left ring finger 07/09/2018 Urge incontinence 01/08/2015 Urinary incontinence PAST SURGICAL HISTORY Procedure Laterality Date ABDOMINAL SURGERY HX ARTHRP KNE CONDYLE&PLATU MEDIAL&LAT COMPARTMENTS Left 2005 BREAST LUMPECTOMY HX Right 09/11/2020 BREAST SURGERY HX BX/EXC LYMPH NODE OPEN DEEP AXILLARY NODE Right 08/2020 CARPAL TUNNEL CEREBROVASCULAR THROMBECTOMY 05/21/2022 brain- CVA COLONOSCOPY COLONOSCOPY FLX DX W/COLLJ SPEC WHEN PFRMD 09/07/2021 CYSTOCELE REPAIR EXCISION GANGLION WRIST DORSAL/VOLAR PRIMARY EYE SURGERY HX HAND SURGERY HX thumgb surg HYSTERECTOMY HX N/A 1992 JOINT REPLACEMENT HX LEXISCAN STRESS TEST 12/28/2018 negative LITHOTRIPSY / 1 SIDE MASTECTOMY, PARTIAL Right 08/2020 PAST SURGICAL HISTORY OF Right 2004 Partial Right Knee Replacement REPAIR RECTOCELE SEPARATE PROCEDURE STRESS TEST 01/19/2018 normal VAGINAL HYSTERECTOMY Current Outpatient Medications Medication Sig anastrozole (ARIMIDEX) 1 mg tablet take 1 tablet by mouth once daily omeprazole (PRILOSEC) 20 mg capsule Take 1 capsule by mouth daily before breakfast. 1/2 hr before meal. simvastatin (ZOCOR) 20 mg tablet Take 1 tablet by mouth once daily. losartan (COZAAR) 100 mg tablet Take 1 tablet by mouth once daily. traZODone (DESYREL) 50 mg tablet Take 1 tablet by mouth daily at bedtime. (Patient taking differently: Take 50 mg by mouth two times a day.) CPAP/BIPAP/OTHER Auto PAP 7-12 cmH2O with humidification. Lifetime supplies. glycerin-min oil-polycarbophil (REPLENS) gel Use 1 application vaginally Every 3 Days. vibegron (GEMTESA) 75 mg tablet Take 1 tablet by mouth once daily. Per Urology: Dr. Vazquez Oxyquinoline-Na Lauryl Sulfate (TRIMO-GIRON JELLY) 0.025-0.01 % gel Use vaginally one time a week. Per Urology: Dr. Vazquez aspirin, enteric coated (ASPIRIN, ENTERIC COATED) 81 mg EC tablet Take 81 mg by mouth once daily. ascorbic acid (VITAMIN C ORAL) Take 1 tablet by mouth once daily. loratadine (CLARITIN) 10 mg tablet Take 10 mg by mouth once daily. timolol maleate (TIMOPTIC) 0.5 % drpd Use 1 Drop in both eyes twice daily. cholecalciferol (VITAMIN D3) 50 mcg (2,000 unit) tablet Take 2,000 Units by mouth twice daily. zinc Take by mouth once daily. vitamin b complex tab Take 1 tablet by mouth once daily. Nletfpmfppjkm-Zbhtctnd-Qgchsy (CENTRUM SILVER) tab Take 1 tablet by mouth once daily. Calcium Carbonate 500 mg calcium (1,250 mg) capsule Take 1,250 mg by mouth twice daily with meals. (Patient not taking: Reported on 11/03/2023) Current Facility-Administered Medications Medication Dose Route Frequency perflutren lipid microspheres 1.3 mL in NaCl (PF) 0.9% 10 mL injection (DEFINITY) INTRAVENOUS DIRECTED PRN sodium chloride 0.9 % (flush) 10 mL (BD POSIFLUSH) 10 mL INTRAVENOUS DIRECTED PRN ALLERGIES: Patient has no known allergies. PERSONAL HISTORY: Social History Tobacco Use Smoking status: Never Smokeless tobacco: Never Vaping Use Vaping Use: Never used Substance Use Topics Alcohol use: No Drug use: No FAMILY HISTORY Problem Relation Age of Onset Heart Mother CHF Hypertension Mother Diabetes Mother Coronary Artery Disease Father early 60's Stroke Father Alzheimer's Disease Sister Diabetes Sister other (lung cancer) Sister Colon Cancer Sister Diabetes Sister Heart Sister valve replacement Diabetes Sister Diabetes Brother other (lung cancer) Brother Coronary Artery Disease Brother 60's Asthma Son Hodgkin Lymphoma Daughter Thyroid Cancer Daughter Hypertension Daughter Breast Cancer Daughter Hypertension Daughter Obesity Daughter The review of systems data was entered by the nurse and reviewed by wi Nursing Notes: Meseret Faust LPN 11/03/2023 2:24 PM Signed REVIEW OF SYSTEMS: General: The patient denies fatigue, denies weight loss, denies weight gain, denies feeling hot, and denies feelings of cold. Eyes: The patient notes glaucoma, denies eye injury/surgery, wears glasses or contacts. Ear/Nose/Throat: The patient denies allergies, denies hayfever, denies ear infections, and denies bloody noses. Cardiovascular: The patient denies chest pain, denies heart disease, notes high blood pressure,denies cardiac stent, denies prior heart attack, denies irregular heart beat, notes high cholesterol, denies poor circulation, denies heart failure, other cardiac issues, denies claudication, denies cold feet, denies peripheral arterial stent. Respiratory: The patient denies tuberculosis, denies pneumonia, denies frequent cough, denies pulmonary embolism, denies shortness of breath, and denies coughing up blood. Gastrointestinal: The patient notes difficulty swallowing, denies acid reflux, denies ulcers, denies vomiting, denies jaundice/hepatitis, denies gallbladder problems, denies black or tarry stools, denies hemorrhoids, denies bleeding from rectum, denies diverticulitis, denies constipation, denies diarrhea, denies loss of stool control, and denies hernias. Kidney/Bladder: The patient notes kidney stones, denies urine infections, and denies bloody urine. Skin: The patient denies a history of skin cancer, denies bleeding/changing moles, and denies a history of skin rash. Neurologic: The patient denies a history of epilepsy/convulsions, denies headaches, denies head/spinal injuries, and notes stroke/TIA. Psychiatric: The patient denies psychiatric medications, notes depression, and denies voices, denies substance abuse. Endocrine: The patient denies thyroid disorders, denies diabetes, and denies hormonal problems. Hematologic: The patient denies a history of bruising, denies bleeding, and denies anemia, denies blood clots. Infections: The patient notes a history of measles and mumps, denies rheumatic fever, and denies sexually transmitted diseases. Musculoskeletal: The patient denies back pain/injury, denies back problems, notes sciatica, denies knee/foot trouble, denies arthritis, or denies gout. When was patient's last Mammogram screening? 08/2023 Last Colonoscopy: 2020 Meseret Faust LPN PHYSICAL EXAMINATION: General: The patient is 78 year old female, well nourished, well hydrated in no acute distress. The patient is oriented to time, place, and person. VITALS: Blood pressure 124/78, pulse 74, temperature 36.7 C (98.1 F), height 154.9 cm (5' 1 ), weight 83.9 kg (185 lb), SpO2 96%. Body mass index is 34.96 kg/m . Head: Normal cephalic, atraumatic Eyes: pupils are equally round, sclera are clear/anicteric Neck is supple with no tracheal deviation Cardiac: regular Respiratory: Normal respiratory excursion and pattern. Abdominal exam: benign Extremities: no clubbing, cyanosis or edema. Neuro: non focal Psych: normal mood Assessment IMPRESSION: pharyngeal dysphagia PLAN: I have discussed the above with the patient. I have offered EGD, possible biopsies I have explained the procedure to the patient. I have counseled the patient as to the risks of the procedure, including but not limited to: infection, bleeding, injury to any intrabdominal organs such as liver/spleen, perforation of the GI tract, inability to complete the procedure, complications of anesthesia, etc. - the patient understands. She defers EGD; she wishes to see ENT and she states that she will see Dr. Dickens (whom she has seen in the past) in [place]. I have encouraged patient to RTC if any worsening signs/symptoms. Patient acknowledges the above. Diagnoses: (R13.13) Pharyngeal dysphagia (primary encounter diagnosis) I have confirmed and edited as necessary, the PFSH and ROS obtained by others. Medical Decision Making: Risk: Low: Low risk from testing/treatment Medical Decision Making Level: 2 - Straightforward Candy Benson MD documented in this encounter [facility] 11-03-2023 Nurse Note REVIEW OF SYSTEMS: General: The patient denies fatigue, denies weight loss, denies weight gain, denies feeling hot, and denies feelings of cold. Eyes: The patient notes glaucoma, denies eye injury/surgery, wears glasses or contacts. Ear/Nose/Throat: The patient denies allergies, denies hayfever, denies ear infections, and denies bloody noses. Cardiovascular: The patient denies chest pain, denies heart disease, notes high blood pressure,denies cardiac stent, denies prior heart attack, denies irregular heart beat, notes high cholesterol, denies poor circulation, denies heart failure, other cardiac issues, denies claudication, denies cold feet, denies peripheral arterial stent. Respiratory: The patient denies tuberculosis, denies pneumonia, denies frequent cough, denies pulmonary embolism, denies shortness of breath, and denies coughing up blood. Gastrointestinal: The patient notes difficulty swallowing, denies acid reflux, denies ulcers, denies vomiting, denies jaundice/hepatitis, denies gallbladder problems, denies black or tarry stools, denies hemorrhoids, denies bleeding from rectum, denies diverticulitis, denies constipation, denies diarrhea, denies loss of stool control, and denies hernias. Kidney/Bladder: The patient notes kidney stones, denies urine infections, and denies bloody urine. Skin: The patient denies a history of skin cancer, denies bleeding/changing moles, and denies a history of skin rash. Neurologic: The patient denies a history of epilepsy/convulsions, denies headaches, denies head/spinal injuries, and notes stroke/TIA. Psychiatric: The patient denies psychiatric medications, notes depression, and denies voices, denies substance abuse. Endocrine: The patient denies thyroid disorders, denies diabetes, and denies hormonal problems. Hematologic: The patient denies a history of bruising, denies bleeding, and denies anemia, denies blood clots. Infections: The patient notes a history of measles and mumps, denies rheumatic fever, and denies sexually transmitted diseases. Musculoskeletal: The patient denies back pain/injury, denies back problems, notes sciatica, denies knee/foot trouble, denies arthritis, or denies gout. When was patient's last Mammogram screening? 08/2023 Last Colonoscopy: 2020 Meseret Faust LPN documented in this encounter [facility] 10-24-2023 Note HNO ID: [id number] Author: Norma Childs PA-C Service: ? Author Type: Physician System Controller Type: Progress Notes Filed: 10/24/2023 7:50 AM Note Text: ESTABLISHED PATIENT VISIT Last visit: 03/31/[address] Satniago ASSESSMENT/PLAN: 1. Memory problem - ICD9: 780.93, ICD10: R41.3 (primary diagnosis) Unclear etiology. MOCA normal History not suggestive of a vascular dementia although pt concerned related to stroke. Question if possible metabolic and will check the following: - VITAMIN B12 BLOOD - TSH BLD. Also consider related to CLAIRE not fully treated. See below regarding treatment plan. Finally may be secondary to onc meds and will ask if they feel appropriate to adjust dosing. Will continue to monitor with repeat MOCA in 09/2023. 2. CLAIRE (obstructive sleep apnea) - ICD9: 327.23, ICD10: G47.33 Sleep related hypoxia - ICD9: 327.24, ICD10: G47.34 Reviewed PAP titration results and PAP data download. Needs O2 due to sleep related hypoxia in absent of respiratory events. Will order nocturnal oximetry study to confirm 1LPM adequate in treating hypoxia. In addition, AHI mildly elevated. Discussed with pt and PAP device is 10 years old and in need to new equipment. Now willing to get Auto PAP. Will order at 7-12 cmH2O. Will request PAP data download after 4 weeks of use. Rx sent to [facility]. 3. History of stroke - ICD9: V12.54, ICD10: Z86.73 No new focal deficits. Continue ASA daily. Continue statin. BP goal <140/90. Glucose goal <140. Encouraged exercise. Huseyin Santiago MD CHIEF COMPLAINT: follow up HISTORY OF PRESENT ILLNESS: Brittani Sage is a 78 year old female, There were no vitals taken for this visit. with a PMH significant for CLAIRE, CVA, insomnia, HTN, HLD, MVP, breast cancer, DDD. Last saw Dr. Santiago 03/31/23 for CVA and CLAIRE, memory loss. On ASA and plavix. MoCA was normal. Ordered B12, TSH (normal). Possible secondary to ONC meds. Patient presents for follow-up evaluation for memory loss. Patien reports that since last appointment she has had significant improvement overall. Reports that at she was playing game with her family and they all report how impressed they were with her memory that she was able to remember things with again. Has no concerns today, otherwise doing well compliant with her aspirin. Sleeps well, compliant with CPAP machine. Does note that she was following pulmonology and was taken off of oxygen due to improvement in pulmonary function. No new stroke symptoms or neurologic symptoms. Notes that she had a stroke a year and a half ago and has been recovering well from this. Has 2 more years left of chemotherapy pill for breast cancer and follows up with hematology and oncology every 6 months. No falls since last appointment. Notes that her son moved in with her in April after his so she milligrams alone. Is driving without a difficulty, no car accidents, no getting lost. No bleeding stove on or faucet running, able to cook and clean for self, able to bathe or self without any issues. Does not drink much water. Of note does report she had a terrible night sleep last night and only had about 3 hours of sleep. Does play games throughout the day and is very social. Does exercise multiple times a week. Is that she has had some voice changes recently and has a scope scheduled for next month. Also notes she had an ablation of her lumbar spine last Monday for chronic pain and is doing well with this. REVIEW OF SYSTEMS GENERAL:No weight loss, malaise or fevers. HEENT:Negative for frequent or significant headaches, No changes in hearing or vision, no nose bleeds or other nasal problems NECK:Negative for lumps, goiter, pain and significant neck swelling RESPIRATORY: Negative for cough, wheezing or shortness of breath. CARDIOVASCULAR: Negative for chest pain, leg swelling or palpitations. GASTROINTESTINAL: Negative for abdominal discomfort, blood in stools or black stools or change in bowel habits GENITOURINARY: No history of dysuria, frequency or incontinence MUSCULOSKELETAL: Negative for joint pain or swelling, back pain or muscle pain. NEUROLOGIC:Negative for focal numbness or weakness, headaches and dizziness or syncope, vision changes, speech/languag changes - EXCEPT that as per HPI above. SKIN:Negative for lesions, rash, and itching. PSYCHIATRIC: Negative for sleep disturbance, mood disorder and recent psychosocial stressors. HEMATOLOGIC/LYMPHATIC/IMMUNOLOGIC: Negative for prolonged bleeding, bruising easily or swollen nodes. ENDOCRINE: Negative for cold or heat intolerance, polyuria, polydipsia and goiter. The remainder of the ROS was reviewed and is negative. LAB/IMAGING: Those performed since patient's last visit have been reviewed. MRI brain WO 08/31/22 IMPRESSION: Punctate diffusion trace hyperintensity which is embedded in an area of susceptibility artifact related to remote right lentiform (more content not included)... [facility] 09-29-2023 Note HNO ID: [id number] Author: Tori Viveros RT(R) Service: Radiology Author Type: Technologist Type: Progress Notes Filed: 09/29/2023 11:43 AM Note Text: Radiology Service Progress Note PATIENT NAME: Brittani Sage DATE OF SERVICE: September 29, 2023 TIME: 11:32 AM PATIENT IDENTITY VERIFICATION COMPLETED USING TWO (2) IDENTIFIERS: Name and Date of confirmed by patient verbally. FALL SCREENING: Has the patient had 2 falls in the last year or 1 fall with injury or currently using an Ambulatory Assistive Device (Walker, Cane, Wheelchair, Crutches, etc.)? No PATIENT GENDER DATA: Female. status: : No status: NO. PATIENT RELEVANT IMPLANT DATA REVIEWED: Yes RADIOLOGY DEPARTMENT: General X-ray: Exam(s) Completed: Upper Extremity X-Ray(s): Shoulder, AP / TRUE AP left and Clavicle, left PERIPHERAL IV DATA: Not applicable SIGNED BY: RT Eh(R) September 29, 2023 11:32 AM [facility] 09-29-2023 Note HNO ID: [id number] Author: Tammi Dodson APRN.STEREOTYPE FINISHER Service: ? Author Type: Nurse Practitioner Type: Progress Notes Filed: 09/29/2023 12:28 PM Note Text: Chief Complaint Patient presents with: Established Patient HPI: Brittani Sage is a 78 year old female who presents here today for follow up breast cancer. Per Dr. Spencer's previous note: H/o kidney stones, obstructive sleep apnea, hypertension, mixed hyperlipidemia, mitral valve prolapse, GERD, diverticulosis and glaucoma. Mammograms (outside films) 08/18/2020 IMPRESSION: 7.2 mm x 5.6 mm nodule in the slightly upper lateral anterior aspect of the right breast as described. Correlation with ultrasound is recommended. US right breast (outside films) 08/24/2020 IMPRESSION: 7 mm x 6 mm x 6 mm hypoechoic irregular nodule at the 10 o''clock position breast at 2 cm from nipple. 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 Estrogen Receptor (ER) Positive (>95%) Progesterone Receptor (PgR) Positive (90%) HER2 (ERBB2) IMMUNOHISTOCHEMISTRY ASSAY Interpretation: NEGATIVE for HER2 (ERBB2) Expression Score: 0 Underwent right breast lumpectomy via wire localization along with right axillary sentinel lymph node biopsy on 09/11/2020. Pathology: FROZEN SECTION DIAGNOSIS A. Right sentinel nodes, biopsy: Two out of two lymph nodes, negative for metastatic carcinoma. B. Additional right sentinel node biopsy: One lymph node, negative for metastatic carcinoma. MICROSCOPIC DIAGNOSIS A. Right sentinel lymph nodes, biopsy: Two out of two lymph nodes, negative for carcinoma. See comment. B. Additional right axillary sentinel lymph node biopsy: One out of one lymph node, negative for carcinoma. See comment. C. Right breast mass, lumpectomy: Invasive ductal carcinoma. See cancer checklist below. See comment. COMMENT INVASIVE BREAST CANCER SUMMARY: Procedure: Excision with wire guidance Specimen: Type: Partial breast Size: 6 x 6 x 4 cm Laterality: Right breast Invasive Tumor: Size: 1.2 x 1 x 1 cm Focality: Single focus of invasive carcinoma. Histologic type: Invasive ductal carcinoma. Histologic grade (Shannon grade): Glandular/tubular differentiation score: 2 Nuclear pleomorphism score: 2 Mitotic count score: 2 Overall grade: 2 (score of 6) Lymphvascular invasion: Not identified Ductal Carcinoma In Situ: Estimated size (extent): <1 millimeter Number of blocks: 1 of 12 blocks Architectural pattern: Cribriform Nuclear grade: 1/3 Necrosis: Not present Lobular Carcinoma In Situ: Not present Tumor extension: Skin: Free of carcinoma Nipple: Not present Skeletal muscle: Not present Invasive Carcinoma Margin: Distance from closest margin: 10 millimeters from superior margin In Situ Carcinoma Margin: Distance from closest margin: 10 millimeters from superior margin Lymph Nodes: Number of sentinel lymph nodes examined: 3 Total number of lymph nodes examined: 3 No evidence of macrometastases, micrometastases or isolated tumor cells. See specimens ?A AND B? Microcalcifications: Focally present in non-neoplastic tissue. Treatment Effect: Unknown Additional Pathologic Findings: Focal atypical lobular hyperplasia, intraductal hyperplasia without atypia, fibrocystic change and changes of previous biopsy. Ancillary Studies: Previously performed on same tumor ([facility] [id number]) ER: Positive (>95%) AK: Positive (90%) [id number]: Negative (0) Clinical History: Abnormal mammogram PATHOLOGIC STAGE: pT1c N0 Mx Oncotype Dx RS 11; 3% (3-4%; 95% CI). Radiation not recommended. Current therapy:Arimidex Began 09/2020 No new concerns today. Appetite: Too much. Energy level: Eh. Denies fevers or recent illness. Resp:denies cough or sob Cardiac:denies chest pain/palpitations GI:denies abd pain, n/v, moving bowels regularly :denies dysuria/hematuria, followed by urogyn Extrem:chronic back/knee pain-stable, mild weakness to LLE from stroke Endo:denies hot flashes Neuro:denies symptoms of neuropathy Skin:denies rashes/lesions Heme:denies bleeding The ROS is otherwise negative. Past medical history, appointments, medications, allergies reviewed. No changes. EXAM: BP 109/73 Pulse 73 Temp 37.4 ?C (99.4 ?F) Ht 155 cm (5' 1.02 ) Wt 82.6 kg (182 lb) SpO2 97% BMI 34.36 kg/m? APPEARANCE Well appearing, alert, in no acute distress, well-hydrated, well nourished. HEART RRR with normal S1 and S2, no murmurs LUNG clear to auscultation, L medial clavicle mass 3x4cm, nt, no skin changes BREAST FEMALE no mass/nodule b/l LYMPH NODES No cervical lymphadenopathy, No supraclavicular lymphadenopathy, and No axillary lymphadenopathy. ABDOMEN bowel sounds normoactive, soft, non-tender EXTREMITIES No edema NEURO Aw (more content not included)... [facility] 09-29-2023 History of Present illness Narrative Radiology Service Progress Note PATIENT NAME: Brittani Sage DATE OF SERVICE: September 29, 2023 TIME: 11:32 AM PATIENT IDENTITY VERIFICATION COMPLETED USING TWO (2) IDENTIFIERS: Name and Date of confirmed by patient verbally. FALL SCREENING: Has the patient had 2 falls in the last year or 1 fall with injury or currently using an Ambulatory Assistive Device (Walker, Cane, Wheelchair, Crutches, etc.)? No PATIENT GENDER DATA: Female. status: : No status: NO. PATIENT RELEVANT IMPLANT DATA REVIEWED: Yes RADIOLOGY DEPARTMENT: General X-ray: Exam(s) Completed: Upper Extremity X-Ray(s): Shoulder, AP / TRUE AP left and Clavicle, left PERIPHERAL IV DATA: Not applicable SIGNED BY: RT Eh(R) September 29, 2023 11:32 AM documented in this encounter [facility] 09-29-2023 History of Present illness Narrative Chief Complaint Patient presents with: Established Patient HPI: Brittani Sage is a 78 year old female who presents here today for follow up breast cancer. Per Dr. Spencer's previous note: H/o kidney stones, obstructive sleep apnea, hypertension, mixed hyperlipidemia, mitral valve prolapse, GERD, diverticulosis and glaucoma. Mammograms (outside films) 08/18/2020 IMPRESSION: 7.2 mm x 5.6 mm nodule in the slightly upper lateral anterior aspect of the right breast as described. Correlation with ultrasound is recommended. US right breast (outside films) 08/24/2020 IMPRESSION: 7 mm x 6 mm x 6 mm hypoechoic irregular nodule at the 10 o''clock position breast at 2 cm from nipple. 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 Estrogen Receptor (ER) Positive (>95%) Progesterone Receptor (PgR) Positive (90%) HER2 (ERBB2) IMMUNOHISTOCHEMISTRY ASSAY Interpretation: NEGATIVE for HER2 (ERBB2) Expression Score: 0 Underwent right breast lumpectomy via wire localization along with right axillary sentinel lymph node biopsy on 09/11/2020. Pathology: FROZEN SECTION DIAGNOSIS A. Right sentinel nodes, biopsy: Two out of two lymph nodes, negative for metastatic carcinoma. B. Additional right sentinel node biopsy: One lymph node, negative for metastatic carcinoma. MICROSCOPIC DIAGNOSIS A. Right sentinel lymph nodes, biopsy: Two out of two lymph nodes, negative for carcinoma. See comment. B. Additional right axillary sentinel lymph node biopsy: One out of one lymph node, negative for carcinoma. See comment. C. Right breast mass, lumpectomy: Invasive ductal carcinoma. See cancer checklist below. See comment. COMMENT INVASIVE BREAST CANCER SUMMARY: Procedure: Excision with wire guidance Specimen: Type: Partial breast Size: 6 x 6 x 4 cm Laterality: Right breast Invasive Tumor: Size: 1.2 x 1 x 1 cm Focality: Single focus of invasive carcinoma. Histologic type: Invasive ductal carcinoma. Histologic grade (Shannon grade): Glandular/tubular differentiation score: 2 Nuclear pleomorphism score: 2 Mitotic count score: 2 Overall grade: 2 (score of 6) Lymphvascular invasion: Not identified Ductal Carcinoma In Situ: Estimated size (extent): <1 millimeter Number of blocks: 1 of 12 blocks Architectural pattern: Cribriform Nuclear grade: 1/3 Necrosis: Not present Lobular Carcinoma In Situ: Not present Tumor extension: Skin: Free of carcinoma Nipple: Not present Skeletal muscle: Not present Invasive Carcinoma Margin: Distance from closest margin: 10 millimeters from superior margin In Situ Carcinoma Margin: Distance from closest margin: 10 millimeters from superior margin Lymph Nodes: Number of sentinel lymph nodes examined: 3 Total number of lymph nodes examined: 3 No evidence of macrometastases, micrometastases or isolated tumor cells. See specimens A & B Microcalcifications: Focally present in non-neoplastic tissue. Treatment Effect: Unknown Additional Pathologic Findings: Focal atypical lobular hyperplasia, intraductal hyperplasia without atypia, fibrocystic change and changes of previous biopsy. Ancillary Studies: Previously performed on same tumor ([facility] [id number]) ER: Positive (>95%) AK: Positive (90%) [id number]: Negative (0) Clinical History: Abnormal mammogram PATHOLOGIC STAGE: pT1c N0 Mx Oncotype Dx RS 11; 3% (3-4%; 95% CI). Radiation not recommended. Current therapy:Arimidex Began 09/2020 No new concerns today. Appetite: Too much. Energy level: Eh. Denies fevers or recent illness. Resp:denies cough or sob Cardiac:denies chest pain/palpitations GI:denies abd pain, n/v, moving bowels regularly :denies dysuria/hematuria, followed by urogyn Extrem:chronic back/knee pain-stable, mild weakness to LLE from stroke Endo:denies hot flashes Neuro:denies symptoms of neuropathy Skin:denies rashes/lesions Heme:denies bleeding The ROS is otherwise negative. Past medical history, appointments, medications, allergies reviewed. No changes. EXAM: BP 109/73 Pulse 73 Temp 37.4 C (99.4 F) Ht 155 cm (5' 1.02 ) Wt 82.6 kg (182 lb) SpO2 97% BMI 34.36 kg/m APPEARANCE Well appearing, alert, in no acute distress, well-hydrated, well nourished. HEART RRR with normal S1 and S2, no murmurs LUNG clear to auscultation, L medial clavicle mass 3x4cm, nt, no skin changes BREAST FEMALE no mass/nodule b/l LYMPH NODES No cervical lymphadenopathy, No supraclavicular lymphadenopathy, and No axillary lymphadenopathy. ABDOMEN bowel sounds normoactive, soft, non-tender EXTREMITIES No edema NEURO Awake, alert and oriented x 3, Normal gait, and No involuntary motions. SKIN Skin color, texture, turgor normal, no suspicious rashes or lesions RADIOLOGY: Mammogram 09/04/23: IMPRESSION: BENIGN FINDING There is no mammographic evidence of malignancy. A 1 year screening mammogram is recommended. ASSESSMENT/PLAN: 1. 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 - L shoulder/clavicle pain - Tolerating arimidex well. - Reviewed mammogram with pt. - Continue arimidex. - Mammogram due 2023. - Xray L shoulder/clavicle today. - Follow up pending xrays. - Pt. aware to call office with any questions/concerns. The patient indicates understanding of these issues and agrees with the plan. All documentation from previous visit of 03/30/23-Dr. Spencer/myself was copied and pasted, documentation has been reviewed and edited as necessary for today's visit. Tammi Dodson APRN.STEREOTYPE FINISHER documented in this encounter [facility] 09-18-2023 Note HNO ID: [id number] Author: Debbie Verde APRN.STEREOTYPE FINISHER Service: ? Author Type: Nurse Practitioner Type: Progress Notes Filed: 09/18/2023 1:58 PM Note Text: Chief Complaint Patient presents with: [facility] HPI Brittani Sage is a 78 year old female who presents here today for Above Complaints.. Patient presents to [facility]. Patient reports concerns of bilateral leg swelling and pain with ambulation. Patient also reports concern for difficulty swallowing. Patient reports intermittent hoarseness as well. Past medical history, appointments, medications, allergies reviewed. Previous Medical History PAST MEDICAL HISTORY Diagnosis Date Advance directive discussed with patient 09/08/2022 Discussed 08/2022: patient to bring in copies Arthritis Carcinoma of upper-outer quadrant of right female breast (HCC) 08/2020 Chronic pain of both knees 01/14/2021 CVA (cerebral vascular accident) (HCC) 05/23/2022 05/21/2022 DDD (degenerative disc disease), lumbar 07/22/2021 Diverticulosis of colon 07/09/2018 Elevated hemoglobin A1c 01/09/2018 Essential hypertension 08/02/2013 Family history of GA (myocardial infarction) 12/18/2018 Dad and Brother in their 60's Generalized arthritis 01/04/2018 GERD without esophagitis 12/18/2018 Glaucoma 01/07/2019 History of kidney stones 01/10/2022 Living will on file at physician's office 09/08/2022 DPA: Jewel (son) Lumbar spinal stenosis 02/2020 Malignant neoplasm of upper-outer quadrant of right breast in female, estrogen receptor positive (HCC) 09/30/2020 Mixed hyperlipidemia 08/02/2013 MVP (mitral valve prolapse) 08/02/2013 Obesity, Class II, BMI 35-39.9 08/10/2020 Obesity, Class III, BMI 40-49.9 (morbid obesity) ([facility]) 08/10/2020 CLAIRE (obstructive sleep apnea) Osteopenia, senile 07/31/2018 Pain in metatarsus of both feet 01/14/2021 dorsaly Primary insomnia 01/07/2019 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 Recurrent UTI 01/08/2015 Situational depression 02/04/2017 Trigger finger, left ring finger 07/09/2018 Urge incontinence 01/08/2015 Urinary incontinence Previous Surgical History PAST SURGICAL HISTORY Procedure Laterality Date ABDOMINAL SURGERY HX ARTHRP KNE CONDYLEANDPLATU MEDIALANDLAT COMPARTMENTS Left 2005 BREAST LUMPECTOMY HX Right 09/11/2020 BREAST SURGERY HX BX/EXC LYMPH NODE OPEN DEEP AXILLARY NODE Right 08/2020 CARPAL TUNNEL CEREBROVASCULAR THROMBECTOMY 05/21/2022 brain- CVA COLONOSCOPY COLONOSCOPY FLX DX W/COLLJ SPEC WHEN PFRMD 09/07/2021 CYSTOCELE REPAIR EXCISION GANGLION WRIST DORSAL/VOLAR PRIMARY EYE SURGERY HX HAND SURGERY HX thumgb surg HYSTERECTOMY HX N/A 1992 JOINT REPLACEMENT HX LEXISCAN STRESS TEST 12/28/2018 negative LITHOTRIPSY / 1 SIDE MASTECTOMY, PARTIAL Right 08/2020 PAST SURGICAL HISTORY OF Right 2004 Partial Right Knee Replacement REPAIR RECTOCELE SEPARATE PROCEDURE STRESS TEST 01/19/2018 normal VAGINAL HYSTERECTOMY Family History FAMILY HISTORY Problem Relation Age of Onset Heart Mother CHF Hypertension Mother Diabetes Mother Coronary Artery Disease Father early 60's Stroke Father Alzheimer's Disease Sister Diabetes Sister other (lung cancer) Sister Colon Cancer Sister Diabetes Sister Heart Sister valve replacement Diabetes Sister Diabetes Brother other (lung cancer) Brother Coronary Artery Disease Brother 60's Asthma Son Hodgkin Lymphoma Daughter Thyroid Cancer Daughter Hypertension Daughter Breast Cancer Daughter Hypertension Daughter Obesity Daughter Patient Allergies ALLERGIES No Known Allergies Current Medications Current Outpatient Medications on File Prior to Visit Medication Sig traZODone (DESYREL) 50 mg tablet Take 1 tablet by mouth daily at bedtime. OXYGEN, HOME THERAPY, Please increase home O2 setting to 2LPM (bleed into PAP). CPAP/BIPAP/OTHER Auto PAP 7-12 cmH2O with humidification. Lifetime supplies. glycerin-min oil-polycarbophil (REPLENS) gel Use 1 application vaginally Every 3 Days. vibegron (GEMTESA) 75 mg tablet Take 1 tablet by mouth once daily. Per Urology: Dr. Vazquez Oxyquinoline-Na Lauryl Sulfate (TRIMO-GIRON JELLY) 0.025-0.01 % gel Use vaginally two times a week. Per Urology: Dr. Vazquez losartan (COZAAR) 100 mg tablet Take 1 tablet by mouth once daily. simvastatin (ZOCOR) 20 mg tablet Take 1 tablet by mouth once daily. omeprazole (PRILOSEC) 20 mg capsule Take 1 capsule by mouth daily before breakfast. 1/2 hr before meal. anastrozole (ARIMIDEX) 1 mg tablet take 1 tablet by mouth once daily aspirin, enteric coated (ASPIRIN, ENTERIC COATED) 81 mg EC tablet Take 81 mg by mouth once daily. ascorbic acid (VITAMIN C ORAL) Take 1 tablet by mouth once daily. loratadine (CLARITIN) 10 mg tablet Take 10 mg by mouth once daily. timolol maleate (TIMOPTIC) 0.5 % drpd Use 1 Drop in both eyes twice daily. cholecalciferol (VITAMIN D3) 50 mcg (2,000 unit) tablet Take 2, (more content not included)... [facility] 09-06-2023 Note HNO ID: [id number] Author: Nikki Anna APRN.STEREOTYPE FINISHER Service: ? Author Type: Nurse Practitioner Type: Progress Notes Filed: 09/06/2023 4:39 PM Note Text: 09/06/2023 Patient presents with: Pain: Right inner thigh pain; described as sharp SUBJECTIVE: This is a 78 year old that is here today for Above Complaints. ONSET: one month LOCATION: right inner thigh DURATION: intermittent CHARACTERISTICS: sharp AGGRAVATING FEATURES: nothing ALLEVIATING FEATURES: heat and extra strength tylenol RADIATION: inner groin down to knee Xray of right hip recently by sports medicine and told her she has arthritis Denies hx of hip surgery, recent or past injury, redness, warmth or swelling PAST MEDICAL HISTORY Diagnosis Date Advance directive discussed with patient 09/08/2022 Discussed 08/2022: patient to bring in copies Arthritis Carcinoma of upper-outer quadrant of right female breast ([facility]) 08/2020 Chronic pain of both knees 01/14/2021 CVA (cerebral vascular accident) ([facility]) 05/23/2022 05/21/2022 DDD (degenerative disc disease), lumbar 07/22/2021 Diverticulosis of colon 07/09/2018 Elevated hemoglobin A1c 01/09/2018 Essential hypertension 08/02/2013 Family history of GA (myocardial infarction) 12/18/2018 Dad and Brother in their 60's Generalized arthritis 01/04/2018 GERD without esophagitis 12/18/2018 Glaucoma 01/07/2019 History of kidney stones 01/10/2022 Living will on file at physician's office 09/08/2022 DPA: Jewel (son) Lumbar spinal stenosis 02/2020 Malignant neoplasm of upper-outer quadrant of right breast in female, estrogen receptor positive ([facility]) 09/30/2020 Mixed hyperlipidemia 08/02/2013 MVP (mitral valve prolapse) 08/02/2013 Obesity, Class II, BMI 35-39.9 08/10/2020 Obesity, Class III, BMI 40-49.9 (morbid obesity) ([facility]) 08/10/2020 CLAIRE (obstructive sleep apnea) Osteopenia, senile 07/31/2018 Pain in metatarsus of both feet 01/14/2021 dorsaly Primary insomnia 01/07/2019 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 Recurrent UTI 01/08/2015 Situational depression 02/04/2017 Trigger finger, left ring finger 07/09/2018 Urge incontinence 01/08/2015 Urinary incontinence ALLERGIES Patient has no known allergies. MEDICATIONS Current Outpatient Medications Medication Sig traZODone (DESYREL) 50 mg tablet Take 1 tablet by mouth daily at bedtime. OXYGEN, HOME THERAPY, Please increase home O2 setting to 2LPM (bleed into PAP). CPAP/BIPAP/OTHER Auto PAP 7-12 cmH2O with humidification. Lifetime supplies. glycerin-min oil-polycarbophil (REPLENS) gel Use 1 application vaginally Every 3 Days. vibegron (GEMTESA) 75 mg tablet Take 1 tablet by mouth once daily. Per Urology: Dr. Vazquez Oxyquinoline-Na Lauryl Sulfate (TRIMO-GIRON JELLY) 0.025-0.01 % gel Use vaginally two times a week. Per Urology: Dr. Vazquez losartan (COZAAR) 100 mg tablet Take 1 tablet by mouth once daily. simvastatin (ZOCOR) 20 mg tablet Take 1 tablet by mouth once daily. omeprazole (PRILOSEC) 20 mg capsule Take 1 capsule by mouth daily before breakfast. 1/2 hr before meal. anastrozole (ARIMIDEX) 1 mg tablet take 1 tablet by mouth once daily aspirin, enteric coated (ASPIRIN, ENTERIC COATED) 81 mg EC tablet Take 81 mg by mouth once daily. ascorbic acid (VITAMIN C ORAL) Take 1 tablet by mouth once daily. loratadine (CLARITIN) 10 mg tablet Take 10 mg by mouth once daily. timolol maleate (TIMOPTIC) 0.5 % drpd Use 1 Drop in both eyes twice daily. cholecalciferol (VITAMIN D3) 50 mcg (2,000 unit) tablet Take 2,000 Units by mouth twice daily. zinc once daily. vitamin b complex tab Take 1 tablet by mouth once daily. Calcium Carbonate 500 mg calcium (1,250 mg) capsule Take 1,250 mg by mouth twice daily with meals. Mxuupbwumgoew-Mskzmdfe-Kttpcp (CENTRUM SILVER) tab Take 1 tablet by mouth once daily. Current Facility-Administered Medications Medication Dose Route Frequency perflutren lipid microspheres 1.3 mL in NaCl (PF) 0.9% 10 mL injection (DEFINITY) INTRAVENOUS DIRECTED PRN sodium chloride 0.9 % (flush) 10 mL (BD POSIFLUSH) 10 mL INTRAVENOUS DIRECTED PRN Medications and allergies reviewed by this provider. SOCIAL HISTORY Social History Tobacco Use Smoking status: Never Smokeless tobacco: Never Vaping Use Vaping Use: Never used Substance Use Topics Alcohol use: No Drug use: No REVIEW OF SYSTEMS All other reviewed and negative other than HPI. OBJECTIVE: Pulse 75 Resp 16 Wt 82.6 kg (182 lb) SpO2 94% BMI 34.49 kg/m? . Vital signs reviewed by this provider. APPEARANCE Well appearing, alert, in no acute distress, well-hydrated, well nourished. BACK: No obvious deformity rashes or swelling. No pain to palpation, good flexion and extension. Admits to discomfort with flexion and bending to the right RIGHT HIP/LEG: No obvious deformity, erythema or swelling. Mild TTP medial thigh. Healed scar to knee from previous knee replacement. FROM. Notes s (more content not included)... [facility] 09-05-2023 Miscellaneous Notes September 06, 2023 PID: [id number] Brittani Sage [address] [place] [address] Dear Ms. Sage, We are pleased to inform you that the results of your recent breast imaging exam on 09/04/2023 are normal. Early detection of cancer is very important. We also understand recommendations regarding breast cancer screening are controversial. Please discuss with your primary care provider which strategy is best for you and whether a mammogram is right for you. Your imaging studies and report will be kept on file at [facility] as part of your permanent medical record and are available for your continuing care. Thank you for allowing us to help in meeting your health care needs. Sincerely, Dr. Wilson Interpreting Radiologist [facility] (Normal over 40) documented in this encounter [facility] 09-04-2023 Note HNO ID: [id number] Author: Blaire Zaragoza Mammo Tech Service: ? Author Type: Hotel Service Manager Type: Progress Notes Filed: 09/04/2023 1:18 PM Note Text: Radiology Service Progress Note PATIENT NAME: Brittani Sage DATE OF SERVICE: September 04, 2023 TIME: 1:17 PM PATIENT IDENTITY VERIFICATION COMPLETED USING TWO (2) IDENTIFIERS: Name and Date of confirmed by patient verbally and Name and Date of confirmed by identification band. FALL SCREENING: Has the patient had 2 falls in the last year or 1 fall with injury or currently using an Ambulatory Assistive Device (Walker, Cane, Wheelchair, Crutches, etc.)? No PATIENT GENDER DATA: Female. status: : No status: NO. PATIENT RELEVANT IMPLANT DATA REVIEWED: Not Applicable RADIOLOGY DEPARTMENT: Mammography PERIPHERAL IV DATA: Not applicable SIGNED BY: Carolyn Martinez Tech September 04, 2023 1:17 PM [facility] 09-04-2023 History of Present illness Narrative Radiology Service Progress Note PATIENT NAME: Brittani Sage DATE OF SERVICE: September 04, 2023 TIME: 1:17 PM PATIENT IDENTITY VERIFICATION COMPLETED USING TWO (2) IDENTIFIERS: Name and Date of confirmed by patient verbally and Name and Date of confirmed by identification band. FALL SCREENING: Has the patient had 2 falls in the last year or 1 fall with injury or currently using an Ambulatory Assistive Device (Walker, Cane, Wheelchair, Crutches, etc.)? No PATIENT GENDER DATA: Female. status: : No status: NO. PATIENT RELEVANT IMPLANT DATA REVIEWED: Not Applicable RADIOLOGY DEPARTMENT: Mammography PERIPHERAL IV DATA: Not applicable SIGNED BY: Bee Fischer appweevr September 04, 2023 1:17 PM documented in this encounter [facility] 07-10-2023 Note HNO ID: [id number] Author: Alejandra Barclay PA-C Service: ? Author Type: Physician System Controller Type: Progress Notes Filed: 07/10/2023 3:12 PM Note Text: Patient: Brittani Sage PCP: Keo Angulo MD CC: follow up HPI: Brittani Sage 78 year old obese female never smoker with PMH significant for breast cancer, CVA s/p TPA and thrombectomy, GERD, glaucoma, CLAIRE on autoCPAP with supplemental oxygen 1 liter, and HLD. Initially evaluated by Dr. Kaplan on 06/26 secondary to nocturnal hypoxemia unrelated to respiratory events. Patient recently reinstituted her PAP therapy, but continued with daytime sleepiness. Updated PSG showed need for oxygen bleed-in. She continued with excessive daytime sleepiness despite CPAP with supplemental oxygen. Overnight oxygen assessment showed persistent desaturations so increased oxygen to 2 L. Since then she has not required a nap and overall feels well. Today, patient states she is sleeping well and is not requiring naps during the day. Waking feeling rested. Currently wearing CPAP with 2L supplemental oxygen bleed-in with all sleep. No dyspnea, chest pain or palpitations. No dizziness or lightheadedness. PAST MEDICAL HISTORY Diagnosis Date Advance directive discussed with patient 09/08/2022 Discussed 08/2022: patient to bring in copies Arthritis Carcinoma of upper-outer quadrant of right female breast ([facility]) 08/2020 Chronic pain of both knees 01/14/2021 CVA (cerebral vascular accident) ([facility]) 05/23/2022 05/21/2022 DDD (degenerative disc disease), lumbar 07/22/2021 Diverticulosis of colon 07/09/2018 Elevated hemoglobin A1c 01/09/2018 Essential hypertension 08/02/2013 Family history of GA (myocardial infarction) 12/18/2018 Dad and Brother in their 60's Generalized arthritis 01/04/2018 GERD without esophagitis 12/18/2018 Glaucoma 01/07/2019 History of kidney stones 01/10/2022 Living will on file at physician's office 09/08/2022 DPA: Jewel (son) Lumbar spinal stenosis 02/2020 Malignant neoplasm of upper-outer quadrant of right breast in female, estrogen receptor positive ([facility]) 09/30/2020 Mixed hyperlipidemia 08/02/2013 MVP (mitral valve prolapse) 08/02/2013 Obesity, Class II, BMI 35-39.9 08/10/2020 Obesity, Class III, BMI 40-49.9 (morbid obesity) ([facility]) 08/10/2020 CLAIRE (obstructive sleep apnea) Osteopenia, senile 07/31/2018 Pain in metatarsus of both feet 01/14/2021 dorsaly Primary insomnia 01/07/2019 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 Recurrent UTI 01/08/2015 Situational depression 02/04/2017 Trigger finger, left ring finger 07/09/2018 Urge incontinence 01/08/2015 Urinary incontinence Allergies: No Known Allergies OXYGEN, HOME THERAPY, Please increase home O2 setting to 2LPM (bleed into PAP). CPAP/BIPAP/OTHER Auto PAP 7-12 cmH2O with humidification. Lifetime supplies. glycerin-min oil-polycarbophil (REPLENS) gel Use 1 application vaginally Every 3 Days. vibegron (GEMTESA) 75 mg tablet Take 1 tablet by mouth once daily. Per Urology: Dr. Vazquez Oxyquinoline-Na Lauryl Sulfate (TRIMO-GIRON JELLY) 0.025-0.01 % gel Use vaginally two times a week. Per Urology: Dr. Vazquez losartan (COZAAR) 100 mg tablet Take 1 tablet by mouth once daily. simvastatin (ZOCOR) 20 mg tablet Take 1 tablet by mouth once daily. omeprazole (PRILOSEC) 20 mg capsule Take 1 capsule by mouth daily before breakfast. 1/2 hr before meal. traZODone (DESYREL) 50 mg tablet Take 1 tablet by mouth daily at bedtime. anastrozole (ARIMIDEX) 1 mg tablet take 1 tablet by mouth once daily aspirin, enteric coated (ASPIRIN, ENTERIC COATED) 81 mg EC tablet Take 81 mg by mouth once daily. ascorbic acid (VITAMIN C ORAL) Take 1 tablet by mouth once daily. loratadine (CLARITIN) 10 mg tablet Take 10 mg by mouth once daily. timolol maleate (TIMOPTIC) 0.5 % drpd Use 1 Drop in both eyes twice daily. cholecalciferol (VITAMIN D3) 50 mcg (2,000 unit) tablet Take 2,000 Units by mouth twice daily. zinc once daily. vitamin b complex tab Take 1 tablet by mouth once daily. Calcium Carbonate 500 mg calcium (1,250 mg) capsule Take 1,250 mg by mouth twice daily with meals. Mwloyokihwuxh-Elxbljac-Hkzdfc (CENTRUM SILVER) tab Take 1 tablet by mouth once daily. Social History Tobacco Use Smoking status: Never Smokeless tobacco: Never Vaping Use Vaping Use: Never used Substance Use Topics Alcohol use: No Drug use: No Family History Problem Relation Age of Onset Heart Mother CHF Hypertension Mother Diabetes Mother Coronary Artery Disease Father early 60's Stroke Father Alzheimer's Disease Sister Diabetes Sister other (lung cancer) Sister Colon Cancer Sister Diabetes Sister Heart Sister valve replacement Diabetes Sister Diabetes Brother other (lung cancer) Brother Coronary Artery Disease Brother 60's Asthma Son Hodgkin Lymphoma Daughter Thyroid Cancer Daughter Hypertension Daughter Breast Ca (more content not included)... [facility] 07-10-2023 Note HNO ID: [id number] Author: Penny Walker RPFT Service: ? Author Type: Respiratory Therapist Type: Procedures Filed: 07/10/2023 1:57 PM Note Text: RESPIRATORY THERAPY ORAL EXHALED NITRIC OXIDE SERVICE DATE: 07/10/2023 SERVICE TIME: 1:57 PM Oral Exhaled Nitric Oxide measurement: 18.0 (ppb) Normal: Adult 5-20 ppb, pediatric (<12 years) 5-15 ppb High Normal / Increased: Adult 20-35 ppb, pediatric (<12 years) 15-25 ppb Moderately raised exhaled Nitric Oxide may indicate underlying inflammation, but note that: Cold and influenza can raise exhaled Nitric Oxide and some patients have higher baseline exhaled Nitric Oxide levels than others. High: Adult >35 ppb, pediatric (<12 years) >25 ppb Indicative of ongoing eosinophilic inflammation. Symptomatic patient likely to respond to steroids. Possible causes (if already on steroids): Poor compliance, recent allergen exposure, steroid dose inadequate, and steroid resistance. Note that not all patients with high exhaled nitric oxide levels display symptoms. Oral Exhaled Nitric Oxide measurement (Previous Encounters) Test Date Oral Exhaled Nitric Oxide (ppb) 07/10/2023 18.0 NAME: IVA Stevenson PATIENT NAME: Brittani Sage DATE: July 10, 2023 TIME: 1:57 PM [facility] 07-10-2023 Note HNO ID: [id number] Author: Penny Walker RPFT Service: ? Author Type: Respiratory Therapist Type: Progress Notes Filed: 07/10/2023 1:57 PM Note Text: PULM FUNCTION SMARTBLOCK: Provider: Zoila Kaplan MD Assisting Tech: Penny Walker RPFT Spirometry w/BD: 1 Exhaled Nitric Oxide: 1 [facility] 07-10-2023 History of Present illness Narrative Images from the original note were not included. Patient: Brittani Sage PCP: Keo Angulo MD CC: follow up HPI: Brittani Sage 78 year old obese female never smoker with PMH significant for breast cancer, CVA s/p TPA and thrombectomy, GERD, glaucoma, CLAIRE on autoCPAP with supplemental oxygen 1 liter, and HLD. Initially evaluated by Dr. Kaplan on 06/26 secondary to nocturnal hypoxemia unrelated to respiratory events. Patient recently reinstituted her PAP therapy, but continued with daytime sleepiness. Updated PSG showed need for oxygen bleed-in. She continued with excessive daytime sleepiness despite CPAP with supplemental oxygen. Overnight oxygen assessment showed persistent desaturations so increased oxygen to 2 L. Since then she has not required a nap and overall feels well. Today, patient states she is sleeping well and is not requiring naps during the day. Waking feeling rested. Currently wearing CPAP with 2L supplemental oxygen bleed-in with all sleep. No dyspnea, chest pain or palpitations. No dizziness or lightheadedness. PAST MEDICAL HISTORY Diagnosis Date Advance directive discussed with patient 09/08/2022 Discussed 08/2022: patient to bring in copies Arthritis Carcinoma of upper-outer quadrant of right female breast ([facility]) 08/2020 Chronic pain of both knees 01/14/2021 CVA (cerebral vascular accident) ([facility]) 05/23/2022 05/21/2022 DDD (degenerative disc disease), lumbar 07/22/2021 Diverticulosis of colon 07/09/2018 Elevated hemoglobin A1c 01/09/2018 Essential hypertension 08/02/2013 Family history of GA (myocardial infarction) 12/18/2018 Dad and Brother in their 60's Generalized arthritis 01/04/2018 GERD without esophagitis 12/18/2018 Glaucoma 01/07/2019 History of kidney stones 01/10/2022 Living will on file at physician's office 09/08/2022 DPA: Jewel (son) Lumbar spinal stenosis 02/2020 Malignant neoplasm of upper-outer quadrant of right breast in female, estrogen receptor positive ([facility]) 09/30/2020 Mixed hyperlipidemia 08/02/2013 MVP (mitral valve prolapse) 08/02/2013 Obesity, Class II, BMI 35-39.9 08/10/2020 Obesity, Class III, BMI 40-49.9 (morbid obesity) ([facility]) 08/10/2020 CLAIRE (obstructive sleep apnea) Osteopenia, senile 07/31/2018 Pain in metatarsus of both feet 01/14/2021 dorsaly Primary insomnia 01/07/2019 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 Recurrent UTI 01/08/2015 Situational depression 02/04/2017 Trigger finger, left ring finger 07/09/2018 Urge incontinence 01/08/2015 Urinary incontinence Allergies: No Known Allergies OXYGEN, HOME THERAPY, Please increase home O2 setting to 2LPM (bleed into PAP). CPAP/BIPAP/OTHER Auto PAP 7-12 cmH2O with humidification. Lifetime supplies. glycerin-min oil-polycarbophil (REPLENS) gel Use 1 application vaginally Every 3 Days. vibegron (GEMTESA) 75 mg tablet Take 1 tablet by mouth once daily. Per Urology: Dr. Vazquez Oxyquinoline-Na Lauryl Sulfate (TRIMO-GIRON JELLY) 0.025-0.01 % gel Use vaginally two times a week. Per Urology: Dr. Vazquez losartan (COZAAR) 100 mg tablet Take 1 tablet by mouth once daily. simvastatin (ZOCOR) 20 mg tablet Take 1 tablet by mouth once daily. omeprazole (PRILOSEC) 20 mg capsule Take 1 capsule by mouth daily before breakfast. 1/2 hr before meal. traZODone (DESYREL) 50 mg tablet Take 1 tablet by mouth daily at bedtime. anastrozole (ARIMIDEX) 1 mg tablet take 1 tablet by mouth once daily aspirin, enteric coated (ASPIRIN, ENTERIC COATED) 81 mg EC tablet Take 81 mg by mouth once daily. ascorbic acid (VITAMIN C ORAL) Take 1 tablet by mouth once daily. loratadine (CLARITIN) 10 mg tablet Take 10 mg by mouth once daily. timolol maleate (TIMOPTIC) 0.5 % drpd Use 1 Drop in both eyes twice daily. cholecalciferol (VITAMIN D3) 50 mcg (2,000 unit) tablet Take 2,000 Units by mouth twice daily. zinc once daily. vitamin b complex tab Take 1 tablet by mouth once daily. Calcium Carbonate 500 mg calcium (1,250 mg) capsule Take 1,250 mg by mouth twice daily with meals. Smmlskbspumbr-Gxifpbhj-Kvcjsk (CENTRUM SILVER) tab Take 1 tablet by mouth once daily. Social History Tobacco Use Smoking status: Never Smokeless tobacco: Never Vaping Use Vaping Use: Never used Substance Use Topics Alcohol use: No Drug use: No Family History Problem Relation Age of Onset Heart Mother CHF Hypertension Mother Diabetes Mother Coronary Artery Disease Father early 60's Stroke Father Alzheimer's Disease Sister Diabetes Sister other (lung cancer) Sister Colon Cancer Sister Diabetes Sister Heart Sister valve replacement Diabetes Sister Diabetes Brother other (lung cancer) Brother Coronary Artery Disease Brother 60's Asthma Son Hodgkin Lymphoma Daughter Thyroid Cancer Daughter Hypertension Daughter Breast Cancer Daughter Hypertension Daughter Obesity Daughter PAST SURGICAL HISTORY Procedure Laterality Date ABDOMINAL SURGERY HX ARTHRP KNE CONDYLE&PLATU MEDIAL&LAT COMPARTMENTS Left 2004 BREAST LUMPECTOMY HX Right 09/11/2020 BREAST SURGERY HX BX/EXC LYMPH NODE OPEN DEEP AXILLARY NODE Right 08/2020 CARPAL TUNNEL CEREBROVASCULAR THROMBECTOMY 05/21/2022 brain- CVA COLONOSCOPY COLONOSCOPY FLX DX W/COLLJ SPEC WHEN PFRMD 09/07/2021 CYSTOCELE REPAIR EXCISION GANGLION WRIST DORSAL/VOLAR PRIMARY EYE SURGERY HX HAND SURGERY HX thumgb surg HYSTERECTOMY HX N/A 1992 JOINT REPLACEMENT HX LEXISCAN STRESS TEST 12/28/2018 negative LITHOTRIPSY / 1 SIDE MASTECTOMY, PARTIAL Right 08/2020 PAST SURGICAL HISTORY OF Right 2004 Partial Right Knee Replacement REPAIR RECTOCELE SEPARATE PROCEDURE STRESS TEST 01/19/2018 normal VAGINAL HYSTERECTOMY I reviewed the past medical history, family history, social history and surgical history with changes noted above and updated in EMR. IMMUNIZATIONS Prevnar - 02/2015 Pneumovax - 06/2018 Influenza - 2021 COVID-19 - most recent 03/30/2022 ROS: CONSTITUTIONAL: No fevers, chills, nightsweats, unintended weight loss HEENT: Denies nasal congestion/sinus symptoms, current allergy problems. EYES: No diplopia or blurry vision. CARDIOVASCULAR: No chest pain, dyspnea, palpitations, orthopnea, PND. Edema- ankles PULM: See HPI GI: No dysphagia/odynophagia, problematic reflux NEURO: No new balance problems, peripheral weakness/paresthesias or numbness of concern. MUSC-SKEL: Arthritis pain INTEGUMENTARY: No new skin changes or rashes PHYSICAL EXAMINATION: BP 138/80 Pulse (!) 54 Resp 12 Ht 154.7 cm (5' 0.91 ) Wt 82.6 kg (182 lb) SpO2 96% BMI 34.49 kg/m Gen: No acute distress. Cooperative with examination. HEENT: Normocephalic. Sclera, conjunctiva clear. Oral hygeine and dentition good. Resp: No stridor, accessory respiratory muscle use, supra-sternal or intercostal retractions. No wheezes, crackles. CV: Regular rythm. Heart tones normal. Radial pulses normal. Abd: Non distended. MSK: No kyphoscoliosis. Ext: Warm and well perfused. No clubbing, cyanosis. Bilateral ankle edema. Skin: No rash, ecchymoses. Neuro: Mental status normal. Affect normal. No tremor. DATA: Exhaled nitric oxide (Olivier), 07/10/2023: 18 (normal < 20). PFT Normal PFT Nocturnal oximetry 05/08/23: On CPAP with oxygen bleed-in Duration 2 hours 58 minutes Lowest saturation 86% Longest desaturation 38 min DATE OF EXAM: Dec 30 2022 9:16AM [facility] 0539 - CT CHEST W IVCON / PROCEDURE REASON: multiple diagnoses CT CHEST W IVCON HISTORY: Malignant neoplasm of upper-outer quadrant of right breast in female, estrogen receptor positive (HCC) Malignant neoplasm of upper-outer quadrant of right breast in female, estrogen receptor positive (HCC) Chest mass Comparison: None. RESULT: Lung parenchyma, airways, and pleural: No consolidation. Central airways are patent. Calcified granulomas in left lung. No suspicious pulmonary nodule. Lower neck, lymph nodes, and mediastinum: The imaged thyroid gland is normal. Calcified mediastinal and left hilar lymph nodes. Heart, pericardium, and thoracic vessels: No pericardial effusion. Normal caliber aorta. Bones and soft tissues: Degenerative osteophytic changes at the bilateral sternoclavicular joints with capsular hypertrophy, greater on the left. Degenerative changes of the thoracic spine with dextroscoliosis. Post surgical changes in the right breast and axilla. Upper abdomen: Benign hepatic and splenic calcified granulomas. IMPRESSION: Degenerative osteophytic changes at the bilateral sternoclavicular joints with capsular hypertrophy, greater on the left. No evidence of metastatic disease. Post surgical changes in the right breast and axilla. Remote granulomatous disease. THEA 06/2022: No PAH and no shunt ASSESSMENT/PLAN: 1. Sleep related hypoxia - ICD9: 327.24, ICD10: G47.34 (primary diagnosis) No obvious pulmonary pathology to explain her persistent hypoxemia. Suspect some degree of hypoventilation. Is doing well with 2L bleed in. PFTs normal with normal nitric oxide. Previous echocardiogram showed no pulmonary hypertension. Will obtain current echo. 2. Dyspnea and respiratory abnormalities - ICD9: 786.09, ICD10: R06.00, R06.89 See #1. - ECHO - PERFLUTREN LIPID MICROSPHERES 1.1 MG/ML INJECTION IN NS 10 ML - SODIUM CHLORIDE 0.9 % (FLUSH) INJECTION SYRINGE 3. History of seasonal allergies - ICD9: V15.09, ICD10: Z88.9 No issues at this time. 4. Abnormal chest CT - ICD9: 793.2, ICD10: R93.89 Mosaic attenuation consistent with small airways disease. PFTs normal. Portions of this documentation were copied and pasted from previous office visit notes in order to provide a cohesive continuity of the history. The note has been reviewed and edited and updated as necessary. Alejandra Barclay PA-C documented in this encounter [facility] 07-10-2023 Procedure note Associated Ord er(s): NITRIC OXIDE, EXHALED RESPIRATORY THERAPY ORAL EXHALED NITRIC OXIDE SERVICE DATE: 07/10/2023 SERVICE TIME: 1:57 PM Oral Exhaled Nitric Oxide measurement: 18.0 (ppb) Normal: Adult 5-20 ppb, pediatric (<12 years) 5-15 ppb High Normal / Increased: Adult 20-35 ppb, pediatric (<12 years) 15-25 ppb Moderately raised exhaled Nitric Oxide may indicate underlying inflammation, but note that: Cold and influenza can raise exhaled Nitric Oxide and some patients have higher baseline exhaled Nitric Oxide levels than others. High: Adult >35 ppb, pediatric (<12 years) >25 ppb Indicative of ongoing eosinophilic inflammation. Symptomatic patient likely to respond to steroids. Possible causes (if already on steroids): Poor compliance, recent allergen exposure, steroid dose inadequate, and steroid resistance. Note that not all patients with high exhaled nitric oxide levels display symptoms. Oral Exhaled Nitric Oxide measurement (Previous Encounters) Test Date Oral Exhaled Nitric Oxide (ppb) 07/10/2023 18.0 NAME: IVA Stevenson PATIENT NAME: Brittani Sage DATE: July 10, 2023 TIME: 1:57 PM documented in this encounter [facility] 07-10-2023 History of Present illness Narrative PULM FUNCTION SMARTBLOCK: Provider: Zoila Kaplan MD Assisting Tech: Penny Walker RPFT Spirometry w/BD: 1 Exhaled Nitric Oxide: 1 documented in this encounter [facility] 06-26-2023 Note HNO ID: [id number] Author: Zoila Kaplan MD Service: ? Author Type: Physician Type: Progress Notes Filed: 06/26/2023 5:29 PM Note Text: . Res[facility] [place] Note Patient name: Brittani Sage PCP: Keo Angulo MD Referring Physician: Huseyin Santiago DO Consultation requested by Dr. Santiago for an opinion regarding nocturnal hypoxemia. My final recommendations will be communicated back to the requesting physician by way of shared Medical record or letter to requesting physician via US mail. CC: Nocturnal hypoxemia HPI: Brittani Sage 78 year old obese female never smoker with PMH significant for breast cancer, CVA s/p TPA and thrombectomy, GERD, glaucoma, CLAIRE on autoCPAP with supplemental oxygen 1 liter, HLD, being referred by Sleep Medicine for evaluation of nocturnal hypoxemia unrelated to respiratory events. She has a history of CLAIRE previously on PAP but was not using it. Complained of excessive daytime sleepiness. Reinstituting use of CPAP recommended but despite compliance had persistent symptoms. Updated sleep study showed need for oxygen bleed-in. She continued to require a daily nap. Overnight oxygen assessment showed persistent desaturations so increased oxygen to 2 L. Since then she has not required a nap and overall feels well. She has no prior pulmonary history. She is a lifelong non-smoker. She does have a history of seasonal allergies requiring immunotherapy in the past but no history of asthma. She denies shortness of breath, chronic cough, sputum production, wheezing. Prior cardiac evaluation for her embolic stroke showed no intracardiac shunt or evidence of pulmonary hypertension. DATA: Nocturnal oximetry 05/08/23: On CPAP with oxygen bleed-in Duration 2 hours 58 minutes Lowest saturation 86% Longest desaturation 38 min Labs: Component Ref Range AND Units 9 mo ago (09/08/22) 1 yr ago (07/22/21) 2 yr ago (08/10/20) WBC 3.70 - 11.00 k/uL 7.29 6.99 8.32 RBC 3.90 - 5.20 m/uL 5.24 High 4.71 5.49 High Hemoglobin 11.5 - 15.5 g/dL 15.1 13.6 16.0 High Hematocrit 36.0 - 46.0 % 47.5 High 43.6 50.2 High MCV 80.0 - 100.0 fL 90.6 92.6 91.4 MCH 26.0 - 34.0 pg 28.8 28.9 R 29.1 R MCHC 30.5 - 36.0 g/dL 31.8 31.2 31.9 RDW-CV 11.5 - 15.0 % 13.5 13.4 13.1 Platelet Count 150 - 400 k/uL 238 239 262 MPV 9.0 - 12.7 fL 10.8 11.1 11.5 Neutrophils % % 50.2 60.9 58.2 Abs Neut 1.45 - 7.50 k/uL 3.65 4.26 4.83 Lymphocytes % % 39.0 27.3 30.4 Abs Lymph 1.00 - 4.00 k/uL 2.84 1.91 2.53 Monocytes % % 7.5 8.2 8.1 Abs Hickman <0.87 k/uL 0.55 0.57 0.67 Eosinophils % % 1.6 2.0 1.9 Abs Eosin <0.46 k/uL 0.12 0.14 0.16 Basophils % % 1.6 1.6 1.4 Abs Baso <0.11 k/uL 0.12 High 0.11 High 0.12 High Immature Granulocytes % % 0.1 Abs Immature Gran <0.10 k/uL <0.03 NRBC /100 WBC 0.0 Absolute nRBC <0.01 k/uL <0.01 <0.01 <0.01 Diff Type Auto Nucleated Reds 0.0 R 0.0 R Diff Type Auto Diff Auto Diff Imaging / Diagnostic Studies: DATE OF EXAM: Dec 30 2022 9:16AM [facility] 0539 - CT CHEST W IVCON / PROCEDURE REASON: multiple diagnoses CT CHEST W IVCON HISTORY: Malignant neoplasm of upper-outer quadrant of right breast in female, estrogen receptor positive (HCC) Malignant neoplasm of upper-outer quadrant of right breast in female, estrogen receptor positive (HCC) Chest mass Comparison: None. RESULT: Lung parenchyma, airways, and pleural: No consolidation. Central airways are patent. Calcified granulomas in left lung. No suspicious pulmonary nodule. Lower neck, lymph nodes, and mediastinum: The imaged thyroid gland is normal. Calcified mediastinal and left hilar lymph nodes. Heart, pericardium, and thoracic vessels: No pericardial effusion. Normal caliber aorta. Bones and soft tissues: Degenerative osteophytic changes at the bilateral sternoclavicular joints with capsular hypertrophy, greater on the left. Degenerative changes of the thoracic spine with dextroscoliosis. Post surgical changes in the right breast and axilla. Upper abdomen: Benign hepatic and splenic calcified granulomas. IMPRESSION: Degenerative osteophytic changes at the bilateral sternoclavicular joints with capsular hypertrophy, greater on the left. No evidence of metastatic disease. Post surgical changes in the right breast and axilla. Remote granulomatous disease. I personally reviewed the images which shows evidence of old granulomatous disease and few patchy areas of mosaic attenuation THEA 06/2022: No PAH and no shunt PAST MEDICAL HISTORY Diagnosis Date Advance directive discussed with patient 09/08/2022 Discussed 08/2022: patient to bring in copies Arthritis Carcinoma of upper-outer quadrant of right female breast (HCC) 08/2020 Chronic pain of both knees 01/14/2021 CVA (cerebral vascular accident) (HCC) 05/23/2022 05/21/2022 DDD (degenerative disc disease), lumbar 07/22/2021 (more content not included)... [facility] 06-26-2023 History of Present illness Narrative Images from the original note were not included. . Res[facility] [place] Note Patient name: Brittani Sage PCP: Keo Angulo MD Referring Physician: Huseyin Santiago DO Consultation requested by Dr. Santiago for an opinion regarding nocturnal hypoxemia. My final recommendations will be communicated back to the requesting physician by way of shared Medical record or letter to requesting physician via [place] mail. CC: Nocturnal hypoxemia HPI: Brittani Sage 78 year old obese female never smoker with PMH significant for breast cancer, CVA s/p TPA and thrombectomy, GERD, glaucoma, CLAIRE on autoCPAP with supplemental oxygen 1 liter, HLD, being referred by Sleep Medicine for evaluation of nocturnal hypoxemia unrelated to respiratory events. She has a history of CLAIRE previously on PAP but was not using it. Complained of excessive daytime sleepiness. Reinstituting use of CPAP recommended but despite compliance had persistent symptoms. Updated sleep study showed need for oxygen bleed-in. She continued to require a daily nap. Overnight oxygen assessment showed persistent desaturations so increased oxygen to 2 L. Since then she has not required a nap and overall feels well. She has no prior pulmonary history. She is a lifelong non-smoker. She does have a history of seasonal allergies requiring immunotherapy in the past but no history of asthma. She denies shortness of breath, chronic cough, sputum production, wheezing. Prior cardiac evaluation for her embolic stroke showed no intracardiac shunt or evidence of pulmonary hypertension. DATA: Nocturnal oximetry 05/08/23: On CPAP with oxygen bleed-in Duration 2 hours 58 minutes Lowest saturation 86% Longest desaturation 38 min Labs: Component Ref Range & Units 9 mo ago (09/08/22) 1 yr ago (07/22/21) 2 yr ago (08/10/20) WBC 3.70 - 11.00 k/uL 7.29 6.99 8.32 RBC 3.90 - 5.20 m/uL 5.24 High 4.71 5.49 High Hemoglobin 11.5 - 15.5 g/dL 15.1 13.6 16.0 High Hematocrit 36.0 - 46.0 % 47.5 High 43.6 50.2 High MCV 80.0 - 100.0 fL 90.6 92.6 91.4 MCH 26.0 - 34.0 pg 28.8 28.9 R 29.1 R MCHC 30.5 - 36.0 g/dL 31.8 31.2 31.9 RDW-CV 11.5 - 15.0 % 13.5 13.4 13.1 Platelet Count 150 - 400 k/uL 238 239 262 MPV 9.0 - 12.7 fL 10.8 11.1 11.5 Neutrophils % % 50.2 60.9 58.2 Abs Neut 1.45 - 7.50 k/uL 3.65 4.26 4.83 Lymphocytes % % 39.0 27.3 30.4 Abs Lymph 1.00 - 4.00 k/uL 2.84 1.91 2.53 Monocytes % % 7.5 8.2 8.1 Abs Hickman <0.87 k/uL 0.55 0.57 0.67 Eosinophils % % 1.6 2.0 1.9 Abs Eosin <0.46 k/uL 0.12 0.14 0.16 Basophils % % 1.6 1.6 1.4 Abs Baso <0.11 k/uL 0.12 High 0.11 High 0.12 High Immature Granulocytes % % 0.1 Abs Immature Gran <0.10 k/uL <0.03 NRBC /100 WBC 0.0 Absolute nRBC <0.01 k/uL <0.01 <0.01 <0.01 Diff Type Auto Nucleated Reds 0.0 R 0.0 R Diff Type Auto Diff Auto Diff Imaging / Diagnostic Studies: DATE OF EXAM: Dec 30 2022 9:16AM [facility] 0539 - CT CHEST W IVCON / PROCEDURE REASON: multiple diagnoses CT CHEST W IVCON HISTORY: Malignant neoplasm of upper-outer quadrant of right breast in female, estrogen receptor positive (HCC) Malignant neoplasm of upper-outer quadrant of right breast in female, estrogen receptor positive (HCC) Chest mass Comparison: None. RESULT: Lung parenchyma, airways, and pleural: No consolidation. Central airways are patent. Calcified granulomas in left lung. No suspicious pulmonary nodule. Lower neck, lymph nodes, and mediastinum: The imaged thyroid gland is normal. Calcified mediastinal and left hilar lymph nodes. Heart, pericardium, and thoracic vessels: No pericardial effusion. Normal caliber aorta. Bones and soft tissues: Degenerative osteophytic changes at the bilateral sternoclavicular joints with capsular hypertrophy, greater on the left. Degenerative changes of the thoracic spine with dextroscoliosis. Post surgical changes in the right breast and axilla. Upper abdomen: Benign hepatic and splenic calcified granulomas. IMPRESSION: Degenerative osteophytic changes at the bilateral sternoclavicular joints with capsular hypertrophy, greater on the left. No evidence of metastatic disease. Post surgical changes in the right breast and axilla. Remote granulomatous disease. I personally reviewed the images which shows evidence of old granulomatous disease and few patchy areas of mosaic attenuation THEA 06/2022: No PAH and no shunt PAST MEDICAL HISTORY Diagnosis Date Advance directive discussed with patient 09/08/2022 Discussed 08/2022: patient to bring in copies Arthritis Carcinoma of upper-outer quadrant of right female breast (HCC) 08/2020 Chronic pain of both knees 01/14/2021 CVA (cerebral vascular accident) (HCC) 05/23/2022 05/21/2022 DDD (degenerative disc disease), lumbar 07/22/2021 Diverticulosis of colon 07/09/2018 Elevated hemoglobin A1c 01/09/2018 Essential hypertension 08/02/2013 Family history of GA (myocardial infarction) 12/18/2018 Dad and Brother in their 60's Generalized arthritis 01/04/2018 GERD without esophagitis 12/18/2018 Glaucoma 01/07/2019 History of kidney stones 01/10/2022 Living will on file at physician's office 09/08/2022 DPA: Jewel (son) Lumbar spinal stenosis 02/2020 Malignant neoplasm of upper-outer quadrant of right breast in female, estrogen receptor positive (HCC) 09/30/2020 Mixed hyperlipidemia 08/02/2013 MVP (mitral valve prolapse) 08/02/2013 Obesity, Class II, BMI 35-39.9 08/10/2020 Obesity, Class III, BMI 40-49.9 (morbid obesity) (HCC) 08/10/2020 CLAIRE (obstructive sleep apnea) Osteopenia, senile 07/31/2018 Pain in metatarsus of both feet 01/14/2021 dorsaly Primary insomnia 01/07/2019 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 cephALEXin (KEFLEX) 500 mg capsule Take 1 capsule by mouth three times daily for 10 days. CPAP/BIPAP/OTHER Auto PAP 7-12 cmH2O with humidification. Lifetime supplies. glycerin-min oil-polycarbophil (REPLENS) gel Use 1 application vaginally Every 3 Days. vibegron (GEMTESA) 75 mg tablet Take 1 tablet by mouth once daily. Per Urology: Dr. Vazquez Oxyquinoline-Na Lauryl Sulfate (TRIMO-GIRON JELLY) 0.025-0.01 % gel Use vaginally two times a week. Per Urology: Dr. Vazquez losartan (COZAAR) 100 mg tablet Take 1 tablet by mouth once daily. simvastatin (ZOCOR) 20 mg tablet Take 1 tablet by mouth once daily. omeprazole (PRILOSEC) 20 mg capsule Take 1 capsule by mouth daily before breakfast. 1/2 hr before meal. traZODone (DESYREL) 50 mg tablet Take 1 tablet by mouth daily at bedtime. anastrozole (ARIMIDEX) 1 mg tablet take 1 tablet by mouth once daily aspirin, enteric coated (ASPIRIN, ENTERIC COATED) 81 mg EC tablet Take 81 mg by mouth once daily. ascorbic acid (VITAMIN C ORAL) Take 1 tablet by mouth once daily. loratadine (CLARITIN) 10 mg tablet Take 10 mg by mouth once daily. timolol maleate (TIMOPTIC) 0.5 % drpd Use 1 Drop in both eyes twice daily. cholecalciferol (VITAMIN D3) 50 mcg (2,000 unit) tablet Take 2,000 Units by mouth twice daily. zinc once daily. vitamin b complex tab Take 1 tablet by mouth once daily. Calcium Carbonate 500 mg calcium (1,250 mg) capsule Take 1,250 mg by mouth twice daily with meals. Gklyuvgujfeon-Prpitzxt-Hlbnbv (CENTRUM SILVER) tab Take 1 tablet by mouth once daily. 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 Pets: None (son recently moved in and has a cat) FAMILY HISTORY Problem Relation Age of Onset Heart Mother CHF Hypertension Mother Diabetes Mother Coronary Artery Disease Father early 60's Stroke Father Alzheimer's Disease Sister Diabetes Sister other (lung cancer) Sister Colon Cancer Sister Diabetes Sister Heart Sister valve replacement Diabetes Sister Diabetes Brother other (lung cancer) Brother Coronary Artery Disease Brother 60's Asthma Son Hodgkin Lymphoma Daughter Thyroid Cancer Daughter Hypertension Daughter Breast Cancer Daughter Hypertension Daughter Obesity Daughter PAST SURGICAL HISTORY Procedure Laterality Date ABDOMINAL SURGERY HX ARTHRP KNE CONDYLE&PLATU MEDIAL&LAT COMPARTMENTS Left 2004 BREAST LUMPECTOMY HX Right 09/11/2020 BREAST SURGERY HX BX/EXC LYMPH NODE OPEN DEEP AXILLARY NODE Right 08/2020 CARPAL TUNNEL CEREBROVASCULAR THROMBECTOMY 05/21/2022 brain- CVA COLONOSCOPY COLONOSCOPY FLX DX W/COLLJ SPEC WHEN PFRMD 09/07/2021 CYSTOCELE REPAIR EXCISION GANGLION WRIST DORSAL/VOLAR PRIMARY EYE SURGERY HX HAND SURGERY HX thumgb surg HYSTERECTOMY HX N/A 1992 JOINT REPLACEMENT HX LEXISCAN STRESS TEST 12/28/2018 negative LITHOTRIPSY / 1 SIDE MASTECTOMY, PARTIAL Right 08/2020 PAST SURGICAL HISTORY OF Right 2003 Partial Right Knee Replacement REPAIR RECTOCELE SEPARATE PROCEDURE STRESS TEST 01/19/2018 normal VAGINAL HYSTERECTOMY PMH, Social history, family history and surgical history reviewed and updated in EMR REVIEW OF SYSTEMS: CONSTITUTIONAL: No fevers, chills, nightsweats, unintended weight loss HEENT: Denies nasal congestion/sinus symptoms, current allergy problems. EYES: No diplopia or blurry vision. CARDIOVASCULAR: No chest pain, dyspnea, palpitations, orthopnea, PND. Edema PULM: See HPI GI: No dysphagia/odynophagia, problematic reflux, constipation, diarrhea, changes in stool habits : History of frequent urinary tract infections and urinary incontinence NEURO: No new balance problems, peripheral weakness/paresthesias or numbness of concern. MUSC-SKEL: Arthritis pain PSY: No concerns regarding depression, anxiety INTEGUMENTARY: No new skin changes or rashes PHYSICAL EXAMINATION: BP 124/84 Pulse 58 Resp 17 Wt 182 lb (82.6kg) SpO2 96% General Appearance: Obese elderly female, NAD. Skin: Skin color, texture, turgor normal, no suspicious rashes or lesions. Head: Normocephalic, no masses, lesions, tenderness or abnormalities. Eyes: Sclera conjunctiva normal. Neck: no JVD, no masses, no TM. Chest wall: hypertrophy of left clavicular head Lungs: Not labored, normal to percussion, no wheezes or crackles Heart: RRR, no murmur. Extremities: Edema, no clubbing. Neurologic: Alert and oriented, no focal findings. Lymph Nodes: No cervical lymphadenopathy and No supraclavicular lymphadenopathy. Assessment/Plan: Sleep related hypoxemia -No obvious pulmonary pathology to explain her persistent hypoxemia -Suspect some degree of hypoventilation -Appears to be doing well with 2 L bleed in -Based on the patchy mosaic attenuation pattern on chest CT, will obtain pulmonary function testing to assess for airways disease Abnormal chest CT -Mosaic attenuation consistent with small airways disease. Pulmonary hypertension has already been eliminated as an etiology -Spirometry to assess for airways obstruction and exhaled nitric oxide level History of seasonal allergies -Her history of seasonal allergies places her at risk for asthma -See #2 Obesity, Class 1 -Class I obesity with BMI 34 -Weight loss advised Zoila Kaplan MD [facility] [place] documented in this encounter [facility] 06-16-2023 Note HNO ID: [id number] Author: Lita Sauer APRN.STEREOTYPE FINISHER Service: ? Author Type: Nurse Practitioner Type: Progress Notes Filed: 06/16/2023 8:26 AM Note Text: Subjective The history is provided by the patient. No hourly sign language interpreter was used. IVY Sage is a 78 year old female who presents today for CC of burning, frequency with urination for 3 days, she was just treated with macrobid for a UTI. In the past year, I can see 2 urine cultures in chart, one positive and one contamination. She denies any fever, chills body aches. She is post menopausal, has a pessary. There were no vitals taken for this visit. Social History Tobacco Use Smoking status: Never Smokeless tobacco: Never Vaping Use Vaping Use: Never used Substance Use Topics Alcohol use: No Drug use: No PAST MEDICAL HISTORY Diagnosis Date Advance directive discussed with patient 09/08/2022 Discussed 08/2022: patient to bring in copies Arthritis Carcinoma of upper-outer quadrant of right female breast ([facility]) 08/2020 Chronic pain of both knees 01/14/2021 CVA (cerebral vascular accident) ([facility]) 05/23/2022 05/21/2022 DDD (degenerative disc disease), lumbar 07/22/2021 Diverticulosis of colon 07/09/2018 Elevated hemoglobin A1c 01/09/2018 Essential hypertension 08/02/2013 Family history of GA (myocardial infarction) 12/18/2018 Dad and Brother in their 60's Generalized arthritis 01/04/2018 GERD without esophagitis 12/18/2018 Glaucoma 01/07/2019 History of kidney stones 01/10/2022 Living will on file at physician's office 09/08/2022 DPA: Jewel (son) Lumbar spinal stenosis 02/2020 Malignant neoplasm of upper-outer quadrant of right breast in female, estrogen receptor positive ([facility]) 09/30/2020 Mixed hyperlipidemia 08/02/2013 MVP (mitral valve prolapse) 08/02/2013 Obesity, Class II, BMI 35-39.9 08/10/2020 Obesity, Class III, BMI 40-49.9 (morbid obesity) ([facility]) 08/10/2020 CLAIRE (obstructive sleep apnea) Osteopenia, senile 07/31/2018 Pain in metatarsus of both feet 01/14/2021 dorsaly Primary insomnia 01/07/2019 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 Gastrointestinal: Negative for abdominal pain, nausea and vomiting. Genitourinary: Positive for dysuria, frequency and urgency. Negative for flank pain and hematuria. Objective Physical Exam Vitals and nursing note reviewed. Constitutional: Appearance: Normal appearance. Abdominal: General: Bowel sounds are normal. There is no abdominal bruit. Palpations: Abdomen is not rigid. There is no mass or pulsatile mass. Tenderness: There is no abdominal tenderness. There is no guarding or rebound. Negative signs include Jeffers's sign and McBurney's sign. Neurological: Mental Status: She is alert and oriented to person, place, and time. Psychiatric: Mood and Affect: Affect normal. Component Latest Ref Rng AND Units 06/16/2023 GLUCOSE UA (POCT) Negative mg/dL Negative BILIRUBIN UA (POCT) Negative Negative KETONE UA (POCT) Negative mg/dL Negative SPECIFIC GRAVITY UA (POCT) 1.005 - 1.030 >=1.030 HEMOGLOBIN/BLOOD UA (POCT) Negative Small (A) PH UA (POCT) 4.5 - 8.0 7.0 PROTEIN UA (POCT) Negative mg/dL 100 (A) UROBILINOGEN UA (POCT) Normal E.U./dL 0.2 NITRITE UA (POCT) Negative Positive (A) LEUKOCYTES UA (POCT) Negative Moderate (A) COLOR UA (POCT) Yellow CLARITY UA (POCT) Clear ASSESSMENT/PLAN: 1. Urgency of urination - ICD9: 788.63, ICD10: R39.15 (primary diagnosis) - UA DIP, URINE (POC) - URINE CULTURE 2. Acute UTI - ICD9: 599.0, ICD10: N39.0 acute - UA positive for sly esterase, hematuria, and nitrates - Send urine for culture - Begin treatment with keflex for 10 days - Patient education for prevention given Diagnosis and treatment plan were discussed and questions were answered to the patient's satisfaction. Pt acknowledged understanding of concepts and follow up plan. Specific signs and symptoms that would indicate the need for higher level of care were discussed in detail warranting prompt ER evaluation. Lita Sauer APRN.CNP [facility] 06-16-2023 Instructions Lita Sauer APRN.CNP - 06/16/2023 8:26 AM EDT keflex for 10 days Tylenol/ibuprofen as needed for discomfort AZO otc Increase hydration -Follow up with PCP or return to clinic if symptoms not improving in 3 days or if you develop any new (or worsening) symptoms such as fever, chills or back pain go to ER. documented in this encounter [facility] 06-16-2023 History of Present illness Narrative Subjective The history is provided by the patient. No hourly sign language interpreter was used. IVY Sage is a 78 year old female who presents today for CC of burning, frequency with urination for 3 days, she was just treated with macrobid for a UTI. In the past year, I can see 2 urine cultures in chart, one positive and one contamination. She denies any fever, chills body aches. She is post menopausal, has a pessary. There were no vitals taken for this visit. Social History Tobacco Use Smoking status: Never Smokeless tobacco: Never Vaping Use Vaping Use: Never used Substance Use Topics Alcohol use: No Drug use: No PAST MEDICAL HISTORY Diagnosis Date Advance directive discussed with patient 09/08/2022 Discussed 08/2022: patient to bring in copies Arthritis Carcinoma of upper-outer quadrant of right female breast (HCC) 08/2020 Chronic pain of both knees 01/14/2021 CVA (cerebral vascular accident) (HCC) 05/23/2022 05/21/2022 DDD (degenerative disc disease), lumbar 07/22/2021 Diverticulosis of colon 07/09/2018 Elevated hemoglobin A1c 01/09/2018 Essential hypertension 08/02/2013 Family history of GA (myocardial infarction) 12/18/2018 Dad and Brother in their 60's Generalized arthritis 01/04/2018 GERD without esophagitis 12/18/2018 Glaucoma 01/07/2019 History of kidney stones 01/10/2022 Living will on file at physician's office 09/08/2022 DPA: Jewel (son) Lumbar spinal stenosis 02/2020 Malignant neoplasm of upper-outer quadrant of right breast in female, estrogen receptor positive (HCC) 09/30/2020 Mixed hyperlipidemia 08/02/2013 MVP (mitral valve prolapse) 08/02/2013 Obesity, Class II, BMI 35-39.9 08/10/2020 Obesity, Class III, BMI 40-49.9 (morbid obesity) (HCC) 08/10/2020 CLAIRE (obstructive sleep apnea) Osteopenia, senile 07/31/2018 Pain in metatarsus of both feet 01/14/2021 dorsaly Primary insomnia 01/07/2019 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 Gastrointestinal: Negative for abdominal pain, nausea and vomiting. Genitourinary: Positive for dysuria, frequency and urgency. Negative for flank pain and hematuria. Objective Physical Exam Vitals and nursing note reviewed. Constitutional: Appearance: Normal appearance. Abdominal: General: Bowel sounds are normal. There is no abdominal bruit. Palpations: Abdomen is not rigid. There is no mass or pulsatile mass. Tenderness: There is no abdominal tenderness. There is no guarding or rebound. Negative signs include Jeffers's sign and McBurney's sign. Neurological: Mental Status: She is alert and oriented to person, place, and time. Psychiatric: Mood and Affect: Affect normal. Component Latest Ref Rng & Units 06/16/2023 GLUCOSE UA (POCT) Negative mg/dL Negative BILIRUBIN UA (POCT) Negative Negative KETONE UA (POCT) Negative mg/dL Negative SPECIFIC GRAVITY UA (POCT) 1.005 - 1.030 >=1.030 HEMOGLOBIN/BLOOD UA (POCT) Negative Small (A) PH UA (POCT) 4.5 - 8.0 7.0 PROTEIN UA (POCT) Negative mg/dL 100 (A) UROBILINOGEN UA (POCT) Normal E.U./dL 0.2 NITRITE UA (POCT) Negative Positive (A) LEUKOCYTES UA (POCT) Negative Moderate (A) COLOR UA (POCT) Yellow CLARITY UA (POCT) Clear ASSESSMENT/PLAN: 1. Urgency of urination - ICD9: 788.63, ICD10: R39.15 (primary diagnosis) - UA DIP, URINE (POC) - URINE CULTURE 2. Acute UTI - ICD9: 599.0, ICD10: N39.0 acute - UA positive for sly esterase, hematuria, and nitrates - Send urine for culture - Begin treatment with keflex for 10 days - Patient education for prevention given Diagnosis and treatment plan were discussed and questions were answered to the patient's satisfaction. Pt acknowledged understanding of concepts and follow up plan. Specific signs and symptoms that would indicate the need for higher level of care were discussed in detail warranting prompt ER evaluation. Lita Sauer APRN.STEREOTYPE FINISHER documented in this encounter [facility] 06-07-2023 Note HNO ID: [id number] Author: Rekha Powell APRN.STEREOTYPE FINISHER Service: ? Author Type: Nurse Practitioner Type: Progress Notes Filed: 06/07/2023 12:41 PM Note Text: Subjective HPI Brittani Sage is a 78 year old female who presents with dysuria and frequency. Symptoms started yesterday. She denies fever, chills, back pain, abdominal pain, nausea or vomiting. She has not taken any medication for these symptoms at home. Review of Systems Constitutional: Negative for chills and fever. Respiratory: Negative. Cardiovascular: Negative. Gastrointestinal: Negative for abdominal pain, nausea and vomiting. Genitourinary: Positive for dysuria and frequency. Negative for urgency. Musculoskeletal: Negative for back pain. BP 116/74 Pulse 67 Temp 36.9 ?C (98.4 ?F) Resp 16 Wt 82.6 kg (182 lb 3.2 oz) SpO2 96% BMI 34.85 kg/m? PAST MEDICAL HISTORY Diagnosis Date Advance directive discussed with patient 09/08/2022 Discussed 08/2022: patient to bring in copies Arthritis Carcinoma of upper-outer quadrant of right female breast (HCC) 08/2020 Chronic pain of both knees 01/14/2021 CVA (cerebral vascular accident) (HCC) 05/23/2022 05/21/2022 DDD (degenerative disc disease), lumbar 07/22/2021 Diverticulosis of colon 07/09/2018 Elevated hemoglobin A1c 01/09/2018 Essential hypertension 08/02/2013 Family history of GA (myocardial infarction) 12/18/2018 Dad and Brother in their 60's Generalized arthritis 01/04/2018 GERD without esophagitis 12/18/2018 Glaucoma 01/07/2019 History of kidney stones 01/10/2022 Living will on file at physician's office 09/08/2022 DPA: Jewel (son) Lumbar spinal stenosis 02/2020 Malignant neoplasm of upper-outer quadrant of right breast in female, estrogen receptor positive (HCC) 09/30/2020 Mixed hyperlipidemia 08/02/2013 MVP (mitral valve prolapse) 08/02/2013 Obesity, Class II, BMI 35-39.9 08/10/2020 Obesity, Class III, BMI 40-49.9 (morbid obesity) (HCC) 08/10/2020 CLAIRE (obstructive sleep apnea) Osteopenia, senile 07/31/2018 Pain in metatarsus of both feet 01/14/2021 dorsaly Primary insomnia 01/07/2019 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 Recurrent UTI 01/08/2015 Situational depression 02/04/2017 Trigger finger, left ring finger 07/09/2018 Urge incontinence 01/08/2015 PAST SURGICAL HISTORY Procedure Laterality Date ABDOMINAL SURGERY HX ARTHRP KNE CONDYLEANDPLATU MEDIALANDLAT COMPARTMENTS Left 2005 BREAST LUMPECTOMY HX Right 09/11/2020 BREAST SURGERY HX BX/EXC LYMPH NODE OPEN DEEP AXILLARY NODE Right 08/2020 CARPAL TUNNEL CEREBROVASCULAR THROMBECTOMY 05/21/2022 brain- CVA COLONOSCOPY COLONOSCOPY FLX DX W/COLLJ SPEC WHEN PFRMD 09/07/2021 CYSTOCELE REPAIR EXCISION GANGLION WRIST DORSAL/VOLAR PRIMARY EYE SURGERY HX HAND SURGERY HX thumgb surg HYSTERECTOMY HX N/A 1992 JOINT REPLACEMENT HX LEXISCAN STRESS TEST 12/28/2018 negative LITHOTRIPSY / 1 SIDE MASTECTOMY, PARTIAL Right 08/2020 PAST SURGICAL HISTORY OF Right 2004 Partial Right Knee Replacement REPAIR RECTOCELE SEPARATE PROCEDURE STRESS TEST 01/19/2018 normal VAGINAL HYSTERECTOMY ALLERGIES Patient has no known allergies. MEDICATIONS OXYGEN, HOME THERAPY, Please increase home O2 setting to 2LPM (bleed into PAP). CPAP/BIPAP/OTHER Auto PAP 7-12 cmH2O with humidification. Lifetime supplies. glycerin-min oil-polycarbophil (REPLENS) gel Use 1 application vaginally Every 3 Days. vibegron (GEMTESA) 75 mg tablet Take 1 tablet by mouth once daily. Per Urology: Dr. Vazquez Oxyquinoline-Na Lauryl Sulfate (TRIMO-GIRON JELLY) 0.025-0.01 % gel Use vaginally two times a week. Per Urology: Dr. Vazquez losartan (COZAAR) 100 mg tablet Take 1 tablet by mouth once daily. simvastatin (ZOCOR) 20 mg tablet Take 1 tablet by mouth once daily. omeprazole (PRILOSEC) 20 mg capsule Take 1 capsule by mouth daily before breakfast. 1/2 hr before meal. traZODone (DESYREL) 50 mg tablet Take 1 tablet by mouth daily at bedtime. anastrozole (ARIMIDEX) 1 mg tablet take 1 tablet by mouth once daily aspirin, enteric coated (ASPIRIN, ENTERIC COATED) 81 mg EC tablet Take 81 mg by mouth once daily. ascorbic acid (VITAMIN C ORAL) Take 1 tablet by mouth once daily. loratadine (CLARITIN) 10 mg tablet Take 10 mg by mouth once daily. timolol maleate (TIMOPTIC) 0.5 % drpd Use 1 Drop in both eyes twice daily. cholecalciferol (VITAMIN D3) 50 mcg (2,000 unit) tablet Take 2,000 Units by mouth twice daily. zinc once daily. vitamin b complex tab Take 1 tablet by mouth once daily. Calcium Carbonate 500 mg calcium (1,250 mg) capsule Take 1,250 mg by mouth twice daily with meals. Xujcexnhbktar-Hqpiqzjg-Gjyujf (CENTRUM SILVER) tab Take 1 tablet by mouth once daily. nitrofurantoin monohydrate and macrocrystal (MACROBID) 100 mg capsule Take 1 capsule by mouth twice daily for 7 days. FAMILY HISTORY Problem Relation Age of Onset Heart Mother CHF Hypertension Mother Diabete (more content not included)... [facility] 06-07-2023 Instructions Rekha Powell APRN.STEREOTYPE FINISHER - 06/07/2023 12:31 PM EDT ASSESSMENT/PLAN: 1. Burning with urination - ICD9: 788.1, ICD10: R30.0 acute - UA positive for sly esterase, hematuria, proteinuria, and nitrates - Send urine for culture - Begin treatment with Macrobid 100 mg BID for 7 days - Patient education for prevention given - URINE CULTURE - UA DIP, URINE (POC) - NITROFURANTOIN MONOHYDRATE & MACROCRYSTAL 100 MG ORAL CAP - URINE CULTURE - Follow-up with your PCP in 3-5 days if symptoms have not improved or sooner if symptoms worsen - Discussed red flags and need for immediate medical evaluation if any occur. - Discussed supportive care treatment with fluids, rest and analgesia. - Discussed expected course of illness Rekha Powell APRN.[facility] PATIENT INFO BLADDER INFECTION OVERVIEW Bladder infections are one of the most common infections, causing symptoms of burning with urination and needing to urinate frequently. A bladder infection is a type of urinary tract infection (UTI). Bladder infections are more common is women than men. Most women have an uncomplicated bladder infection that is easily treated with a short course of antibiotics. In men, bladder infections may also affect the prostate gland, and a longer course of treatment may be needed. BLADDER INFECTION CAUSES The urinary tract includes the kidneys (which filter urine), ureters (the tube that carries urine from the kidneys to the bladder), the bladder (which stores urine), and urethra (the tube that carries urine out of the bladder). Bacteria do not normally live in these areas. However, bacteria normally live close to the urethra in women and men who are not circumcised. Bladder infections occur when bacteria travel up the urethra into the bladder. Factors that increase the risk of developing a bladder infection include: Vaginal sex Use of spermicides History of past bladder infections Diabetes In men, not being circumcised or having anal sex increase the risk of bladder infections. BLADDER INFECTION SYMPTOMS The typical symptoms of a bladder infection include: Pain or burning when urinating Frequent need to urinate Urgent need to urinate Blood in the urine Fever, back pain, nausea, or vomiting are not common symptoms of a bladder infection, but can occur in people with a kidney infection (pyelonephritis). If you have these symptoms, you should call your doctor or nurse immediately. Is it a bladder infection or something else? -- Burning with urination can also occur in people with vaginitis (eg, yeast infection) or urethritis (inflammation of the urethra). For this reason, it is important to call your healthcare provider before assuming you have a bladder infection. BLADDER INFECTION DIAGNOSIS Simple bladder infections are usually diagnosed based upon your symptoms alone. However, most patients, especially those who have bladder infection symptoms for the first time, should see a healthcare provider for urine testing. Urine culture -- A urine culture is a test that uses a sample of urine to try and grow bacteria in a laboratory. It usually requires about 48 hours to get results. However, a urine culture is not always required to diagnose a bladder infection. Urine culture is often recommended if: You have never had a bladder infection before You have symptoms that are not typical for bladder infection You have had resistant bladder infections before You have frequent bladder infections You do not begin to feel better within 24 to 48 hours after starting antibiotics You are BLADDER INFECTION TREATMENT Bladder infection -- In young, healthy adolescents and adults with a bladder infection, the usual treatment includes a three to seven day course of antibiotics. The typical drugs chosen are: trimethoprim-sulfamethoxazole (Bactrim ), nitrofurantoin (Macrobid ), ciprofloxacin (Cipro ) or levofloxacin (Levaquin ). In men, the infection may involve your prostate gland and treatment is usually given for at least 7 days. Your symptoms should begin to resolve within one day after starting treatment. It is important to take the full course of antibiotics to completely eliminate the infection. If your symptoms persist for more than two or three days after starting treatment, call your healthcare provider. If needed, you can take a prescription medication that numbs the bladder and urethra (phenazopyridine [Pyridium ]) to reduce the burning pain of some UTIs. A similar medication is available without a prescription (eg, Uristat). Both medications change the color of the urine (usually blue or orange) and can interfere with laboratory testing. You should not take these medications for more than 48 hours due to the risk of side effects. These medications do not treat the infection and must be taken along with an antibiotic. Some providers recommend drinking more fluids while treating bladder infections to help flush bacteria from the bladder. Others believe that drinking more fluids may dilute the antibiotic in the bladder and make the medication less effective. No studies have been performed to address this issue. There are also no good studies on the effectiveness of cranberry juice for treating a bladder infection; we do not recommend using cranberry juice to treat bladder infections. Follow-up care -- Follow-up testing is not needed in healthy, young men or women with a bladder infection if symptoms resolve. women are usually asked to have a repeat urine culture one to two weeks after treatment has ended to make sure the bacteria are no longer in the urine. RECURRENT BLADDER INFECTIONS Bladder infections versus other causes -- Some adults, especially women, develop bladder infections frequently. In this case, it is important to confirm that your symptoms (eg, pain or burning, frequency, and urgency) are caused by a bladder infection. Symptoms are usually similar from one infection to another. The best way to confirm an infection is to have a urine culture. If your urine culture is negative for infection, other causes of pain, burning, and frequency should be investigated. There is no reason to take antibiotics if your urine culture is negative. Need for further testing -- If you continue to develop bladder infections, you may require further testing. If you continue to notice blood in your urine after your bladder infection has cleared, you should have further testing. Preventing recurrent UTIs -- Women with recurrent urinary tract infections may be advised to take steps to prevent bladder infections, including one or more of the following: Changes in control -- Women who develop frequent bladder infections and use spermicides, particularly those who also use a diaphragm, may be encouraged to use an alternate method of control. Cranberry products -- Taking cranberry juice or cranberry tablets has been promoted as one way to help prevent frequent bladder infections. However, this has not been proven. Drinking more fluid and urinating after intercourse -- Although studies have not proven that drinking more fluids or urinating soon after intercourse can prevent infection, some healthcare providers recommend these measures since they are not harmful. Drinking more fluid may help to wash out bacteria that enter the bladder. Postmenopausal women -- Postmenopausal women who develop recurrent bladder infections may benefit from using vaginal estrogen. Vaginal estrogen is available in a flexible ring that is worn in the vagina for three months (eg, Estring ), a small tablet (Vagifem ), or a cream (eg, Premarin or Estrace ). Vaginal estrogen is discussed in more detail in a separate topic review. Antibiotics -- A preventive antibiotic treatment may be recommended if you repeatedly develop bladder infections and have not responded to other preventive measures. Antibiotics are highly effective in preventing recurrent bladder infections and can be taken in several different ways. Preventive antibiotic -- You can take a low dose of an antibiotic once per day or three times per week for six months to several years. Antibiotics following intercourse -- In women who develop urinary tract infections after sex, taking a single low dose antibiotic after intercourse can help to prevent bladder infections. Self-treatment -- A plan to begin antibiotics at the first sign of a bladder infection may be recommended in some situations. Before starting this regimen, it is important that you have had testing (urine cultures) to confirm that your symptoms are caused by a bladder infection; some people have symptoms of a bladder infection but do not actually have an infection. documented in this encounter [facility] 06-07-2023 History of Present illness Narrative Subjective HPI Brittani Sage is a 78 year old female who presents with dysuria and frequency. Symptoms started yesterday. She denies fever, chills, back pain, abdominal pain, nausea or vomiting. She has not taken any medication for these symptoms at home. Review of Systems Constitutional: Negative for chills and fever. Respiratory: Negative. Cardiovascular: Negative. Gastrointestinal: Negative for abdominal pain, nausea and vomiting. Genitourinary: Positive for dysuria and frequency. Negative for urgency. Musculoskeletal: Negative for back pain. BP 116/74 Pulse 67 Temp 36.9 C (98.4 F) Resp 16 Wt 82.6 kg (182 lb 3.2 oz) SpO2 96% BMI 34.85 kg/m PAST MEDICAL HISTORY Diagnosis Date Advance directive discussed with patient 09/08/2022 Discussed 08/2022: patient to bring in copies Arthritis Carcinoma of upper-outer quadrant of right female breast (HCC) 08/2020 Chronic pain of both knees 01/14/2021 CVA (cerebral vascular accident) (HCC) 05/23/2022 05/21/2022 DDD (degenerative disc disease), lumbar 07/22/2021 Diverticulosis of colon 07/09/2018 Elevated hemoglobin A1c 01/09/2018 Essential hypertension 08/02/2013 Family history of GA (myocardial infarction) 12/18/2018 Dad and Brother in their 60's Generalized arthritis 01/04/2018 GERD without esophagitis 12/18/2018 Glaucoma 01/07/2019 History of kidney stones 01/10/2022 Living will on file at physician's office 09/08/2022 DPA: Jewel (son) Lumbar spinal stenosis 02/2020 Malignant neoplasm of upper-outer quadrant of right breast in female, estrogen receptor positive (HCC) 09/30/2020 Mixed hyperlipidemia 08/02/2013 MVP (mitral valve prolapse) 08/02/2013 Obesity, Class II, BMI 35-39.9 08/10/2020 Obesity, Class III, BMI 40-49.9 (morbid obesity) (HCC) 08/10/2020 CLAIRE (obstructive sleep apnea) Osteopenia, senile 07/31/2018 Pain in metatarsus of both feet 01/14/2021 dorsaly Primary insomnia 01/07/2019 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 Recurrent UTI 01/08/2015 Situational depression 02/04/2017 Trigger finger, left ring finger 07/09/2018 Urge incontinence 01/08/2015 PAST SURGICAL HISTORY Procedure Laterality Date ABDOMINAL SURGERY HX ARTHRP KNE CONDYLE&PLATU MEDIAL&LAT COMPARTMENTS Left 2004 BREAST LUMPECTOMY HX Right 09/11/2020 BREAST SURGERY HX BX/EXC LYMPH NODE OPEN DEEP AXILLARY NODE Right 08/2020 CARPAL TUNNEL CEREBROVASCULAR THROMBECTOMY 05/21/2022 brain- CVA COLONOSCOPY COLONOSCOPY FLX DX W/COLLJ SPEC WHEN PFRMD 09/07/2021 CYSTOCELE REPAIR EXCISION GANGLION WRIST DORSAL/VOLAR PRIMARY EYE SURGERY HX HAND SURGERY HX thumgb surg HYSTERECTOMY HX N/A 1991 JOINT REPLACEMENT HX LEXISCAN STRESS TEST 12/28/2018 negative LITHOTRIPSY / 1 SIDE MASTECTOMY, PARTIAL Right 08/2020 PAST SURGICAL HISTORY OF Right 2004 Partial Right Knee Replacement REPAIR RECTOCELE SEPARATE PROCEDURE STRESS TEST 01/19/2018 normal VAGINAL HYSTERECTOMY ALLERGIES Patient has no known allergies. MEDICATIONS OXYGEN, HOME THERAPY, Please increase home O2 setting to 2LPM (bleed into PAP). CPAP/BIPAP/OTHER Auto PAP 7-12 cmH2O with humidification. Lifetime supplies. glycerin-min oil-polycarbophil (REPLENS) gel Use 1 application vaginally Every 3 Days. vibegron (GEMTESA) 75 mg tablet Take 1 tablet by mouth once daily. Per Urology: Dr. Vazquez Oxyquinoline-Na Lauryl Sulfate (TRIMO-GIRON JELLY) 0.025-0.01 % gel Use vaginally two times a week. Per Urology: Dr. Vazquez losartan (COZAAR) 100 mg tablet Take 1 tablet by mouth once daily. simvastatin (ZOCOR) 20 mg tablet Take 1 tablet by mouth once daily. omeprazole (PRILOSEC) 20 mg capsule Take 1 capsule by mouth daily before breakfast. 1/2 hr before meal. traZODone (DESYREL) 50 mg tablet Take 1 tablet by mouth daily at bedtime. anastrozole (ARIMIDEX) 1 mg tablet take 1 tablet by mouth once daily aspirin, enteric coated (ASPIRIN, ENTERIC COATED) 81 mg EC tablet Take 81 mg by mouth once daily. ascorbic acid (VITAMIN C ORAL) Take 1 tablet by mouth once daily. loratadine (CLARITIN) 10 mg tablet Take 10 mg by mouth once daily. timolol maleate (TIMOPTIC) 0.5 % drpd Use 1 Drop in both eyes twice daily. cholecalciferol (VITAMIN D3) 50 mcg (2,000 unit) tablet Take 2,000 Units by mouth twice daily. zinc once daily. vitamin b complex tab Take 1 tablet by mouth once daily. Calcium Carbonate 500 mg calcium (1,250 mg) capsule Take 1,250 mg by mouth twice daily with meals. Lubopefhhyjkl-Cpvcehvd-Xylykm (CENTRUM SILVER) tab Take 1 tablet by mouth once daily. nitrofurantoin monohydrate and macrocrystal (MACROBID) 100 mg capsule Take 1 capsule by mouth twice daily for 7 days. FAMILY HISTORY Problem Relation Age of Onset Heart Mother CHF Hypertension Mother Diabetes Mother Coronary Artery Disease Father early 60's Stroke Father Alzheimer's Disease Sister Diabetes Sister other (lung cancer) Sister Colon Cancer Sister Diabetes Sister Heart Sister valve replacement Diabetes Sister Diabetes Brother other (lung cancer) Brother Coronary Artery Disease Brother 60's Asthma Son Hodgkin Lymphoma Daughter Thyroid Cancer Daughter Hypertension Daughter Breast Cancer Daughter Hypertension Daughter Obesity Daughter Social History Tobacco Use Smoking status: Never Smokeless tobacco: Never Vaping Use Vaping Use: Never used Substance Use Topics Alcohol use: No Drug use: No Objective Physical Exam Vitals and nursing note reviewed. Constitutional: Appearance: Normal appearance. Cardiovascular: Rate and Rhythm: Normal rate and regular rhythm. Heart sounds: Normal heart sounds. Pulmonary: Effort: Pulmonary effort is normal. No respiratory distress. Breath sounds: Normal breath sounds. No wheezing or rales. Abdominal: General: There is no distension. Palpations: Abdomen is soft. There is no mass. Tenderness: There is no abdominal tenderness. There is no right CVA tenderness, left CVA tenderness or guarding. Skin: General: Skin is warm and dry. Neurological: Mental Status: She is alert. Last labs for kidney function: Component Latest Ref Rng & Units 03/09/2023 Protein, Total 6.3 - 8.0 g/dL 7.0 Albumin 3.9 - 4.9 g/dL 4.2 Calcium 8.5 - 10.2 mg/dL 10.3 (H) Bilirubin, Total 0.2 - 1.3 mg/dL 0.6 Alkaline Phosphatase 34 - 123 U/L 85 AST 13 - 35 U/L 26 ALT 7 - 38 U/L 14 Glucose 74 - 99 mg/dL 82 BUN 7 - 21 mg/dL 29 (H) Creatinine 0.58 - 0.96 mg/dL 0.89 Sodium 136 - 144 mmol/L 141 Potassium 3.7 - 5.1 mmol/L 4.4 Chloride 97 - 105 mmol/L 103 CO2 22 - 30 mmol/L 29 Anion Gap 9 - 18 mmol/L 9 eGFR >=60 mL/min/1.73m 66 ASSESSMENT/PLAN: 1. Burning with urination - ICD9: 788.1, ICD10: R30.0 acute - UA positive for sly esterase, hematuria, proteinuria, and nitrates - Send urine for culture - Begin treatment with Macrobid 100 mg BID for 7 days - Patient education for prevention given - URINE CULTURE - UA DIP, URINE (POC) - NITROFURANTOIN MONOHYDRATE & MACROCRYSTAL 100 MG ORAL CAP - URINE CULTURE - Follow-up with your PCP in 3-5 days if symptoms have not improved or sooner if symptoms worsen - Discussed red flags and need for immediate medical evaluation if any occur. - Discussed supportive care treatment with fluids, rest and analgesia. - Discussed expected course of illness Rekha Powell APRN.MITZY documented in this encounter [facility] 05-11-2023 Miscellaneous Notes Please review & advise. Gloria Esteban MA Liv from [employer] calling received order asking if the oxygen rate increase is it to be continuous? Please return call. Please assist patient with PULM appointment. *CLOSED TE ON ACCIDENT* Gloria Esteban MA Patient notified & will self adjust O2 concentrator to 2LPM (ok per [employer] d/t concentrator does not need changed out). Faxed script for [employer] company records: [employer] [phone]. Gloria Esteban MA I did increase O2 to 2LPM (Rx needs sent to DME). I also would like pt to see pulmonary for persistent hypoxia despite PAP and O2. Huseyin Santiago MD TC to pt and she confirms she used 1 LPM. Casandra Barahona LPN Please confirm pt was using oxygen at 1LPM the night of the study. If so, then need to increase to 2LPM. Please let me know and I can provide orders. Thank you, Huseyin Santiago MD Please see below results and advise. Scan on 05/08/2023 3:44 PM by Provider, External, PA-C: Overnight Pulse Ox Received fax from [employer] regarding pts overnight pulse oximetry test. Casandra Baraohna LPN documented in this encounter [facility] 04-05-2023 Miscellaneous Notes Patient calling regarding recent lab results. Pt informed of her elevated B12 level and told her that ordering provider would advise her. Patient reports she takes B12 3000 mcg twice a day. Asking for Dr. Santiago to advise. Thank you. documented in this encounter [facility] 04-03-2023 Miscellaneous Notes Ketchupppt message sent to pt notifying her of normal results from Provider. Samina Keita Ma ----- Message from Regina Nguyen PA-C sent at 04/03/2023 7:32 AM EDT ----- Calcium level is back down to normal. documented in this encounter [facility] 03-31-2023 Note HNO ID: [id number] Author: Huseyin Santiago Jr., MD Service: ? Author Type: Physician Type: Progress Notes Filed: 03/31/2023 2:15 PM Note Text: ESTABLISHED PATIENT VISIT CHIEF COMPLAINT: Follow Up HISTORY OF PRESENT ILLNESS: Brittani Sage is a 78 year old female, with a PMH significant for and per last office visit of 08/05/22: 1. Cerebrovascular accident (CVA) due to occlusion of cerebral artery (HCC) - ICD9: 434.91, ICD10: I63.50 Patient with RMCA stroke secondary to M1 occlusion of uncertain etiology. Patient was evaluated and treated at [facility], and all records are not available for review. As noted, reports indicate pt had IV TPA as well as interventional thrombectomy. Extensive workup for etiology of clot unremarkable including THEA and cardiac monitoring. Review of records suggests MRI brain never completed and uncertain why as evidence of additional strokes (multiple vascular territories) might further suggest central embolic source and need for loop recorder. Patient was not treated with DAPT and at this point not sure if any benefit and thus, will continue ASA daily. Continue statin daily. BP goal <140/90. Glucose goal <140. Pt agrees with MRI brain and order will be placed for reasons above. Also will get MRA to reevaluate patency of intracrnaial circulation. Patient was on Armidex and will ask heme/onc Dr. Noelle Spencer opinion regarding clot risk while on medication. Pt and family educated on stroke risks and precautions. Encouraged exercise. Encouraged treatment of CLAIRE. 2. CLAIRE (obstructive sleep apnea) - ICD9: 327.23, ICD10: G47.33 Reviewed PSG results with pt showing severe CLAIRE likely underestimated given lack of supine positioning during the study. As hypoxia was present during the study with a mean O2 sat of 89%, feel PAP titration appropriate to determine PAP setting needed to normalized AHI. Titration ordered and pt will follow up post titration. Discussed with patient: the physiology of OSAS, medical conditions associated with OSAS (DM, HTN, CAD, Depression, Stroke, Headache...) and treatment options (UPPP, Dental appliances, CPAP...). Advised patient to avoid activities that could harm self or others when tired/sleepy, including driving and/or operating heavy machinery. Encouraged weight loss, and continued compliance with other medications. MRI brain completed 08/31/22 showed per report: Punctate diffusion trace hyperintensity which is embedded in an area of susceptibility artifact related to remote right lentiform nuclei hemorrhage and contiguous extension into the adjacent right posterior frontal fleming radiata. The appearance on the diffusion trace imaging could represent artifact associated with these old blood degradation products or punctate recent microvascular infarct. (12:33 from the diffusion imaging; 8:25 and adjacent contiguous imaging from the SWI sequence). No mass effect and no acute hemorrhage. No evidence for regional territory acute ischemia or proximal large vessel intracranial arterial occlusion. PAP titration read 08/31/22 recommended Auto PAP 7-12 cmH2O + 1LPM of supplemental O2. Patient however refused new PAP device and continues to use her CPAP at 7 cmH2O with 1 LPM of supplemental O2. PAP compliance report for the 90 days leading up to 03/27/23 showed 87/90 days of PAP use for avg of 4 hours and 9 minutes. CPAP set at 7 cmH2O. AHI is elevated at 7.5. 95% leak is 18.3 LPM. Pt states using a new nasal mask that she has been using the last few days and feels it is working better. Pt thinks PAP device is about 10 years old. Explained need for new device. Pt does have questions regarding paying for O2 and explained need to d/w insurance. Pt continued on ASA and Plavix. BP stable and <140/90. Glucose <140. Pt states she has a few symptoms not sure if related to stroke or changes in onc meds. Patient states she has had one time she could not remember the directions and needed her GPS. Another day forgot to nut picker medications at the right time. Vitamin B12 Date Value Ref Range Status 05/01/2017 701 211 - 946 pg/mL Final TSH Date Value Ref Range Status 10/28/2020 1.070 0.270 - 4.200 uU/mL Final Modified MOCA: Immediate recall: 03/03 Number repeat: 12/01 Sentence repeat: 12/01 Serial 7s: [id number] 12/30 Similar objects: 12/01 Orientation: 03/31/2023, [place], Biden 04/04 Delayed recall: 03/03 Namin/3 Clock Drawin/3 REVIEW OF SYSTEMS GENERAL:No weight loss, malaise or fevers. HEENT:Negative for frequent or significant headaches, No changes in hearing or vision, no nose bleeds or other nasal problems NECK:Negative for lumps, goiter, pain and significant neck swelling RESPIRATORY: Negative for cough, wheezing or shortness of breath. CARDIOVASCULAR: Negative for chest pain, leg swelling or palpitations. GASTROINTESTINAL: Negative for abdominal discomfort, blood in stools or black stools or change in b (more content not included)... [facility] 03-31-2023 Miscellaneous Notes Orders and demographics also sent for PAP therapy. CARRINGTON Holt Face sheet, OV notes and order for nocturnal oximetry testing [place] [facility] [place]. CARRINGTON Holt documented in this encounter [facility] 03-31-2023 History of Present illness Narrative ESTABLISHED PATIENT VISIT CHIEF COMPLAINT: Follow Up HISTORY OF PRESENT ILLNESS: Brittani Sage is a 78 year old female, with a PMH significant for and per last office visit of 08/05/22: 1. Cerebrovascular accident (CVA) due to occlusion of cerebral artery (HCC) - ICD9: 434.91, ICD10: I63.50 Patient with RMCA stroke secondary to M1 occlusion of uncertain etiology. Patient was evaluated and treated at [facility], and all records are not available for review. As noted, reports indicate pt had IV TPA as well as interventional thrombectomy. Extensive workup for etiology of clot unremarkable including THEA and cardiac monitoring. Review of records suggests MRI brain never completed and uncertain why as evidence of additional strokes (multiple vascular territories) might further suggest central embolic source and need for loop recorder. Patient was not treated with DAPT and at this point not sure if any benefit and thus, will continue ASA daily. Continue statin daily. BP goal <140/90. Glucose goal <140. Pt agrees with MRI brain and order will be placed for reasons above. Also will get MRA to reevaluate patency of intracrnaial circulation. Patient was on Armidex and will ask heme/onc Dr. Noelle Spencer opinion regarding clot risk while on medication. Pt and family educated on stroke risks and precautions. Encouraged exercise. Encouraged treatment of CLAIRE. 2. CLAIRE (obstructive sleep apnea) - ICD9: 327.23, ICD10: G47.33 Reviewed PSG results with pt showing severe CLAIRE likely underestimated given lack of supine positioning during the study. As hypoxia was present during the study with a mean O2 sat of 89%, feel PAP titration appropriate to determine PAP setting needed to normalized AHI. Titration ordered and pt will follow up post titration. Discussed with patient: the physiology of OSAS, medical conditions associated with OSAS (DM, HTN, CAD, Depression, Stroke, Headache...) and treatment options (UPPP, Dental appliances, CPAP...). Advised patient to avoid activities that could harm self or others when tired/sleepy, including driving and/or operating heavy machinery. Encouraged weight loss, and continued compliance with other medications. MRI brain completed 08/31/22 showed per report: Punctate diffusion trace hyperintensity which is embedded in an area of susceptibility artifact related to remote right lentiform nuclei hemorrhage and contiguous extension into the adjacent right posterior frontal fleming radiata. The appearance on the diffusion trace imaging could represent artifact associated with these old blood degradation products or punctate recent microvascular infarct. (12:33 from the diffusion imaging; 8:25 and adjacent contiguous imaging from the SWI sequence). No mass effect and no acute hemorrhage. No evidence for regional territory acute ischemia or proximal large vessel intracranial arterial occlusion. PAP titration read 08/31/22 recommended Auto PAP 7-12 cmH2O + 1LPM of supplemental O2. Patient however refused new PAP device and continues to use her CPAP at 7 cmH2O with 1 LPM of supplemental O2. PAP compliance report for the 90 days leading up to 03/27/23 showed 87/90 days of PAP use for avg of 4 hours and 9 minutes. CPAP set at 7 cmH2O. AHI is elevated at 7.5. 95% leak is 18.3 LPM. Pt states using a new nasal mask that she has been using the last few days and feels it is working better. Pt thinks PAP device is about 10 years old. Explained need for new device. Pt does have questions regarding paying for O2 and explained need to d/w insurance. Pt continued on ASA and Plavix. BP stable and <140/90. Glucose <140. Pt states she has a few symptoms not sure if related to stroke or changes in onc meds. Patient states she has had one time she could not remember the directions and needed her GPS. Another day forgot to nut picker medications at the right time. Vitamin B12 Date Value Ref Range Status 05/01/2017 701 211 - 946 pg/mL Final TSH Date Value Ref Range Status 10/28/2020 1.070 0.270 - 4.200 uU/mL Final Modified MOCA: Immediate recall: 03/03 Number repeat: 12/01 Sentence repeat: 12/01 Serial 7s: [id number] 12/30 Similar objects: 12/01 Orientation: 03/31/2023, [place], Biden 04/04 Delayed recall: 03/03 Namin/3 Clock Drawin/3 REVIEW OF SYSTEMS GENERAL:No weight loss, malaise or fevers. HEENT:Negative for frequent or significant headaches, No changes in hearing or vision, no nose bleeds or other nasal problems NECK:Negative for lumps, goiter, pain and significant neck swelling RESPIRATORY: Negative for cough, wheezing or shortness of breath. CARDIOVASCULAR: Negative for chest pain, leg swelling or palpitations. GASTROINTESTINAL: Negative for abdominal discomfort, blood in stools or black stools or change in bowel habits GENITOURINARY: No history of dysuria, frequency or incontinence MUSCULOSKELETAL: Negative for joint pain or swelling, back pain or muscle pain. NEUROLOGIC:Negative for focal numbness or weakness, headaches and dizziness or syncope, vision changes, speech/languag changes - EXCEPT that as per HPI above. SKIN:Negative for lesions, rash, and itching. PSYCHIATRIC: Negative for sleep disturbance, mood disorder and recent psychosocial stressors. HEMATOLOGIC/LYMPHATIC/IMMUNOLOGIC: Negative for prolonged bleeding, bruising easily or swollen nodes. ENDOCRINE: Negative for cold or heat intolerance, polyuria, polydipsia and goiter. The remainder of the ROS was reviewed and is negative. LAB/IMAGING: Those performed since patient's last visit have been reviewed. WBC (k/uL) Date Value 09/08/2022 7.29 RBC (m/uL) Date Value 09/08/2022 5.24 (H) Hemoglobin (g/dL) Date Value 09/08/2022 15.1 Hematocrit (%) Date Value 09/08/2022 47.5 (H) MCV (fL) Date Value 09/08/2022 90.6 MCH (pg) Date Value 09/08/2022 28.8 MCHC (g/dL) Date Value 09/08/2022 31.8 RDW-CV (%) Date Value 09/08/2022 13.5 Platelet Count (k/uL) Date Value 09/08/2022 238 MPV (fL) Date Value 09/08/2022 10.8 Glucose (mg/dL) Date Value 03/09/2023 82 BUN (mg/dL) Date Value 03/09/2023 29 (H) Creatinine (mg/dL) Date Value 03/09/2023 0.89 Sodium (mmol/L) Date Value 03/09/2023 141 Potassium (mmol/L) Date Value 03/09/2023 4.4 Chloride (mmol/L) Date Value 03/09/2023 103 CO2 (mmol/L) Date Value 03/09/2023 29 Protein, Total (g/dL) Date Value 03/09/2023 7.0 Albumin (g/dL) Date Value 03/09/2023 4.2 Calcium, Total (mg/dL) Date Value 03/09/2023 10.3 (H) Alkaline Phosphatase (U/L) Date Value 03/09/2023 85 Bilirubin, Total (mg/dL) Date Value 03/09/2023 0.6 AST (U/L) Date Value 03/09/2023 26 ALT (U/L) Date Value 03/09/2023 14 MEDICATIONS: glycerin-min oil-polycarbophil (REPLENS) gel Use 1 application vaginally Every 3 Days. vibegron (GEMTESA) 75 mg tablet Take 1 tablet by mouth once daily. Per Urology: Dr. Vazquez Oxyquinoline-Na Lauryl Sulfate (TRIMO-GIRON JELLY) 0.025-0.01 % gel Use vaginally two times a week. Per Urology: Dr. Vazquez losartan (COZAAR) 100 mg tablet Take 1 tablet by mouth once daily. simvastatin (ZOCOR) 20 mg tablet Take 1 tablet by mouth once daily. omeprazole (PRILOSEC) 20 mg capsule Take 1 capsule by mouth daily before breakfast. 1/2 hr before meal. traZODone (DESYREL) 50 mg tablet Take 1 tablet by mouth daily at bedtime. anastrozole (ARIMIDEX) 1 mg tablet take 1 tablet by mouth once daily aspirin, enteric coated (ASPIRIN, ENTERIC COATED) 81 mg EC tablet Take 81 mg by mouth once daily. ascorbic acid (VITAMIN C ORAL) Take 1 tablet by mouth once daily. loratadine (CLARITIN) 10 mg tablet Take 10 mg by mouth once daily. timolol maleate (TIMOPTIC) 0.5 % drpd Use 1 Drop in both eyes twice daily. cholecalciferol (VITAMIN D3) 50 mcg (2,000 unit) tablet Take 2,000 Units by mouth twice daily. zinc once daily. vitamin b complex tab Take 1 tablet by mouth once daily. Calcium Carbonate 500 mg calcium (1,250 mg) capsule Take 1,250 mg by mouth twice daily with meals. Hwktbtcetztvn-Cqcswkvc-Ebmesu (CENTRUM SILVER) tab Take 1 tablet by mouth once daily. HISTORIES PAST MEDICAL HISTORY Diagnosis Date Advance directive discussed with patient 09/08/2022 Discussed 08/2022: patient to bring in copies Arthritis Carcinoma of upper-outer quadrant of right female breast ([facility]) 08/2020 Chronic pain of both knees 01/14/2021 CVA (cerebral vascular accident) ([facility]) 05/23/2022 05/21/2022 DDD (degenerative disc disease), lumbar 07/22/2021 Diverticulosis of colon 07/09/2018 Elevated hemoglobin A1c 01/09/2018 Essential hypertension 08/02/2013 Family history of GA (myocardial infarction) 12/18/2018 Dad and Brother in their 60's Generalized arthritis 01/04/2018 GERD without esophagitis 12/18/2018 Glaucoma 01/07/2019 History of kidney stones 01/10/2022 Living will on file at physician's office 09/08/2022 DPA: Jewel (son) Lumbar spinal stenosis 02/2020 Malignant neoplasm of upper-outer quadrant of right breast in female, estrogen receptor positive ([facility]) 09/30/2020 Mixed hyperlipidemia 08/02/2013 MVP (mitral valve prolapse) 08/02/2013 Obesity, Class II, BMI 35-39.9 08/10/2020 Obesity, Class III, BMI 40-49.9 (morbid obesity) ([facility]) 08/10/2020 CLAIRE (obstructive sleep apnea) Osteopenia, senile 07/31/2018 Pain in metatarsus of both feet 01/14/2021 dorsaly Primary insomnia 01/07/2019 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 Recurrent UTI 01/08/2015 Situational depression 02/04/2017 Trigger finger, left ring finger 07/09/2018 Urge incontinence 01/08/2015 FAMILY HISTORY Problem Relation Age of Onset Heart Mother CHF Hypertension Mother Diabetes Mother Coronary Artery Disease Father early 60's Stroke Father Alzheimer's Disease Sister Diabetes Sister other (lung cancer) Sister Colon Cancer Sister Diabetes Sister Heart Sister valve replacement Diabetes Sister Diabetes Brother other (lung cancer) Brother Coronary Artery Disease Brother 60's Asthma Son Hodgkin Lymphoma Daughter Thyroid Cancer Daughter Hypertension Daughter Breast Cancer Daughter Hypertension Daughter Obesity Daughter SOCIAL HISTORY Social History Tobacco Use Smoking status: Never Smokeless tobacco: Never Vaping Use Vaping Use: Never used Substance Use Topics Alcohol use: No Drug use: No PHYSICAL EXAMINATION Blood pressure 114/74, pulse (!) 55, temperature (!) 35.9 C (96.7 F), resp. rate 18, weight 81.6 kg (180 lb), SpO2 98 %. GENERAL EXAM: General appearance: NAD, pleasant. HEENT: NC/AT, nasal congestion absent, no oral lesions, membranes moist. Lungs: CTA bilaterally. CV: RRR nl S1, S2. Skin: Cool to touch. NEUROLOGICAL EXAM: General: Awake, alert, oriented x3 (person,place,time), speech fluent, no dysarthria; comprehension, naming, repetition intact. CN: PERRL, EOMI and without nystagmus, VFF to confrontation, facial sensation and strength are normal and symmetric, hearing is intact, palate and tongue movements are intact and symmetric. SCM and trapezius strength normal. Motor: Normal tone, bulk and strength (5/5) bilaterally (throughout extremities x4). Coordination: FNF, MARCI (slightly slower on the L), HTS intact. No tremors. Sensation: LT intact throughout. No evidence of neglect. Gait: Stable with normal stride and arm swing. Assessment and Plan: ASSESSMENT/PLAN: 1. Memory problem - ICD9: 780.93, ICD10: R41.3 (primary diagnosis) Unclear etiology. MOCA normal History not suggestive of a vascular dementia although pt concerned related to stroke. Question if possible metabolic and will check the following: - VITAMIN B12 BLOOD - TSH BLD. Also consider related to CLAIRE not fully treated. See below regarding treatment plan. Finally may be secondary to onc meds and will ask if they feel appropriate to adjust dosing. Will continue to monitor with repeat MOCA in 09/2023. 2. CLAIRE (obstructive sleep apnea) - ICD9: 327.23, ICD10: G47.33 Sleep related hypoxia - ICD9: 327.24, ICD10: G47.34 Reviewed PAP titration results and PAP data download. Needs O2 due to sleep related hypoxia in absent of respiratory events. Will order nocturnal oximetry study to confirm 1LPM adequate in treating hypoxia. In addition, AHI mildly elevated. Discussed with pt and PAP device is 10 years old and in need to new equipment. Now willing to get Auto PAP. Will order at 7-12 cmH2O. Will request PAP data download after 4 weeks of use. Rx sent to [facility]. 3. History of stroke - ICD9: V12.54, ICD10: Z86.73 No new focal deficits. Continue ASA daily. Continue statin. BP goal <140/90. Glucose goal <140. Encouraged exercise. Huseyin Santiago MD I spent a total of 45 minutes on the date of the service which included preparing to see the patient, [id number] patient care, completing clinical documentation, obtaining and/or reviewing separately obtained history, performing a medically appropriate examination, counseling and educating the patient/family/caregiver, ordering medications, tests, or procedures, communicating with other HCPs (not separately reported), independently interpreting results (not separately reported), and communicating results to the patient/family/caregiver. documented in this encounter [facility] 03-30-2023 Note HNO ID: [id number] Author: Tammi Dodson APRN.STEREOTYPE FINISHER Service: ? Author Type: Nurse Practitioner Type: Progress Notes Filed: 03/30/2023 2:14 PM Note Text: Chief Complaint Patient presents with: Established Patient HPI: Brittani Sage is a 78 year old female who presents here today for follow up breast cancer. Per Dr. Spencer's previous note: H/o kidney stones, obstructive sleep apnea, hypertension, mixed hyperlipidemia, mitral valve prolapse, GERD, diverticulosis and glaucoma. Mammograms (outside films) 08/18/2020 IMPRESSION: 7.2 mm x 5.6 mm nodule in the slightly upper lateral anterior aspect of the right breast as described. Correlation with ultrasound is recommended. US right breast (outside films) 08/24/2020 IMPRESSION: 7 mm x 6 mm x 6 mm hypoechoic irregular nodule at the 10 o''clock position breast at 2 cm from nipple. 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 Estrogen Receptor (ER) Positive (>95%) Progesterone Receptor (PgR) Positive (90%) HER2 (ERBB2) IMMUNOHISTOCHEMISTRY ASSAY Interpretation: NEGATIVE for HER2 (ERBB2) Expression Score: 0 Underwent right breast lumpectomy via wire localization along with right axillary sentinel lymph node biopsy on 09/11/2020. Pathology: FROZEN SECTION DIAGNOSIS A. Right sentinel nodes, biopsy: Two out of two lymph nodes, negative for metastatic carcinoma. B. Additional right sentinel node biopsy: One lymph node, negative for metastatic carcinoma. MICROSCOPIC DIAGNOSIS A. Right sentinel lymph nodes, biopsy: Two out of two lymph nodes, negative for carcinoma. See comment. B. Additional right axillary sentinel lymph node biopsy: One out of one lymph node, negative for carcinoma. See comment. C. Right breast mass, lumpectomy: Invasive ductal carcinoma. See cancer checklist below. See comment. COMMENT INVASIVE BREAST CANCER SUMMARY: Procedure: Excision with wire guidance Specimen: Type: Partial breast Size: 6 x 6 x 4 cm Laterality: Right breast Invasive Tumor: Size: 1.2 x 1 x 1 cm Focality: Single focus of invasive carcinoma. Histologic type: Invasive ductal carcinoma. Histologic grade ([place] grade): Glandular/tubular differentiation score: 2 Nuclear pleomorphism score: 2 Mitotic count score: 2 Overall grade: 2 (score of 6) Lymphvascular invasion: Not identified Ductal Carcinoma In Situ: Estimated size (extent): <1 millimeter Number of blocks: 1 of 12 blocks Architectural pattern: Cribriform Nuclear grade: 1/3 Necrosis: Not present Lobular Carcinoma In Situ: Not present Tumor extension: Skin: Free of carcinoma Nipple: Not present Skeletal muscle: Not present Invasive Carcinoma Margin: Distance from closest margin: 10 millimeters from superior margin In Situ Carcinoma Margin: Distance from closest margin: 10 millimeters from superior margin Lymph Nodes: Number of sentinel lymph nodes examined: 3 Total number of lymph nodes examined: 3 No evidence of macrometastases, micrometastases or isolated tumor cells. See specimens ?A AND B? Microcalcifications: Focally present in non-neoplastic tissue. Treatment Effect: Unknown Additional Pathologic Findings: Focal atypical lobular hyperplasia, intraductal hyperplasia without atypia, fibrocystic change and changes of previous biopsy. Ancillary Studies: Previously performed on same tumor ([facility] [id number]) ER: Positive (>95%) AK: Positive (90%) Rox2dqn: Negative (0) Clinical History: Abnormal mammogram PATHOLOGIC STAGE: pT1c N0 Mx Oncotype Dx RS 11; 3% (3-4%; 95% CI). Radiation not recommended. Current therapy:Arimidex Began 09/2020 No new concerns today. Appetite: Bad. I'm trying to keep my weight off. Food is so tempting. Energy level: Good. Using CPAP again and feel much better with new mask. Denies fevers or recent illness. Resp:denies cough or sob Cardiac:denies chest pain/palpitations GI:denies abd pain, n/v, moving bowels regularly :denies dysuria/hematuria, followed by urogyn Extrem:chronic back/knee pain-stable, mild weakness to LLE from stroke Endo:denies hot flashes Neuro:denies symptoms of neuropathy Skin:denies rashes/lesions Heme:denies bleeding The ROS is otherwise negative. Past medical history, appointments, medications, allergies reviewed. No changes. EXAM: BP 119/64 Pulse 67 Temp 36.7 ?C (98 ?F) (Tympanic) Ht 154 cm (5' 0.63 ) Wt 81.9 kg (180 lb 8 oz) SpO2 97% BMI 34.52 kg/m? APPEARANCE Well appearing, alert, in no acute distress, well-hydrated, well nourished. HEART RRR with normal S1 and S2, no murmurs LUNG clear to auscultation BREAST FEMALE no mass/nodule b/l LYMPH NODES No cervical lymphadenopathy, No supraclavicular lymphadenopathy, and No axillary lymphadenopathy. ABDOMEN bowel sound (more content not included)... [facility] 03-30-2023 History of Present illness Narrative Chief Complaint Patient presents with: Established Patient HPI: Brittani Sage is a 78 year old female who presents here today for follow up breast cancer. Per Dr. Spencer's previous note: H/o kidney stones, obstructive sleep apnea, hypertension, mixed hyperlipidemia, mitral valve prolapse, GERD, diverticulosis and glaucoma. Mammograms (outside films) 08/18/2020 IMPRESSION: 7.2 mm x 5.6 mm nodule in the slightly upper lateral anterior aspect of the right breast as described. Correlation with ultrasound is recommended. US right breast (outside films) 08/24/2020 IMPRESSION: 7 mm x 6 mm x 6 mm hypoechoic irregular nodule at the 10 o''clock position breast at 2 cm from nipple. 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 Estrogen Receptor (ER) Positive (>95%) Progesterone Receptor (PgR) Positive (90%) HER2 (ERBB2) IMMUNOHISTOCHEMISTRY ASSAY Interpretation: NEGATIVE for HER2 (ERBB2) Expression Score: 0 Underwent right breast lumpectomy via wire localization along with right axillary sentinel lymph node biopsy on 09/11/2020. Pathology: FROZEN SECTION DIAGNOSIS A. Right sentinel nodes, biopsy: Two out of two lymph nodes, negative for metastatic carcinoma. B. Additional right sentinel node biopsy: One lymph node, negative for metastatic carcinoma. MICROSCOPIC DIAGNOSIS A. Right sentinel lymph nodes, biopsy: Two out of two lymph nodes, negative for carcinoma. See comment. B. Additional right axillary sentinel lymph node biopsy: One out of one lymph node, negative for carcinoma. See comment. C. Right breast mass, lumpectomy: Invasive ductal carcinoma. See cancer checklist below. See comment. COMMENT INVASIVE BREAST CANCER SUMMARY: Procedure: Excision with wire guidance Specimen: Type: Partial breast Size: 6 x 6 x 4 cm Laterality: Right breast Invasive Tumor: Size: 1.2 x 1 x 1 cm Focality: Single focus of invasive carcinoma. Histologic type: Invasive ductal carcinoma. Histologic grade ([place] grade): Glandular/tubular differentiation score: 2 Nuclear pleomorphism score: 2 Mitotic count score: 2 Overall grade: 2 (score of 6) Lymphvascular invasion: Not identified Ductal Carcinoma In Situ: Estimated size (extent): <1 millimeter Number of blocks: 1 of 12 blocks Architectural pattern: Cribriform Nuclear grade: 1/3 Necrosis: Not present Lobular Carcinoma In Situ: Not present Tumor extension: Skin: Free of carcinoma Nipple: Not present Skeletal muscle: Not present Invasive Carcinoma Margin: Distance from closest margin: 10 millimeters from superior margin In Situ Carcinoma Margin: Distance from closest margin: 10 millimeters from superior margin Lymph Nodes: Number of sentinel lymph nodes examined: 3 Total number of lymph nodes examined: 3 No evidence of macrometastases, micrometastases or isolated tumor cells. See specimens A & B Microcalcifications: Focally present in non-neoplastic tissue. Treatment Effect: Unknown Additional Pathologic Findings: Focal atypical lobular hyperplasia, intraductal hyperplasia without atypia, fibrocystic change and changes of previous biopsy. Ancillary Studies: Previously performed on same tumor ([facility] [id number]) ER: Positive (>95%) AK: Positive (90%) Jvd2fny: Negative (0) Clinical History: Abnormal mammogram PATHOLOGIC STAGE: pT1c N0 Mx Oncotype Dx RS 11; 3% (3-4%; 95% CI). Radiation not recommended. Current therapy:Arimidex Began 09/2020 No new concerns today. Appetite: Bad. I'm trying to keep my weight off. Food is so tempting. Energy level: Good. Using CPAP again and feel much better with new mask. Denies fevers or recent illness. Resp:denies cough or sob Cardiac:denies chest pain/palpitations GI:denies abd pain, n/v, moving bowels regularly :denies dysuria/hematuria, followed by urogyn Extrem:chronic back/knee pain-stable, mild weakness to LLE from stroke Endo:denies hot flashes Neuro:denies symptoms of neuropathy Skin:denies rashes/lesions Heme:denies bleeding The ROS is otherwise negative. Past medical history, appointments, medications, allergies reviewed. No changes. EXAM: BP 119/64 Pulse 67 Temp 36.7 C (98 F) (Tympanic) Ht 154 cm (5' 0.63 ) Wt 81.9 kg (180 lb 8 oz) SpO2 97% BMI 34.52 kg/m APPEARANCE Well appearing, alert, in no acute distress, well-hydrated, well nourished. HEART RRR with normal S1 and S2, no murmurs LUNG clear to auscultation BREAST FEMALE no mass/nodule b/l LYMPH NODES No cervical lymphadenopathy, No supraclavicular lymphadenopathy, and No axillary lymphadenopathy. ABDOMEN bowel sounds normoactive, soft, non-tender EXTREMITIES No edema NEURO Awake, alert and oriented x 3, Normal gait, and No involuntary motions. SKIN Skin color, texture, turgor normal, no suspicious rashes or lesions ASSESSMENT/PLAN: 1. 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 - No new concerning findings on exam. - Tolerating arimidex well. - Continue arimidex. - Mammogram due 2022. - Follow up after above. - Pt. aware to call office with any questions/concerns. The patient indicates understanding of these issues and agrees with the plan. All documentation from previous visit of 12/26/22-Dr. Spencer/myself was copied and pasted, documentation has been reviewed and edited as necessary for today's visit. Tammi Dodson APRN.STEREOTYPE FINISHER documented in this encounter [facility] 03-28-2023 Miscellaneous Notes Received 90 compliance pap report. Sent to chart for scanning. Casandra Barahona LPN Pt returned call and will take her SD care to the sleep center next week for the download. Casandra Barahona LPN Requested compliance report from [facility]. They returned fax that they only supply O2 and that patient refused a new PAP machine in August of 2022. Per TE from 09/30/2022, her old machine that she is using no longer transmits and she will need to take her SD card into [facility] before her appointment for a compliance report to be pulled. TC to patient with no answer. Left VM to return call to office. CARRINGTON Holt documented in this encounter [facility] 03-24-2023 Note HNO ID: [id number] Author: Nathalie Harper LPN Service: ? Author Type: ? Type: Progress Notes Filed: 03/24/2023 9:28 AM Note Text: Scan on 03/23/2023 9:35 PM by External Provider, PATishC: Consultation - [facility] 03-14-2023 Miscellaneous Notes Patient last visit 03/09/23 Follow up appointment scheduled 09/18/23 [facility] in [facility] Patient has been identified by name and date of : Yes Patient aware RX will be sent to pharmacy. No need to notify patient. Patient phones for refill(s): Requested Prescriptions Pending Prescriptions Disp Refills losartan (COZAAR) 100 mg tablet 90 tablet 1 Sig: Take 1 tablet by mouth once daily. simvastatin (ZOCOR) 20 mg tablet 90 tablet 1 Sig: Take 1 tablet by mouth once daily. Date of last office visit : 03/09/2023 Date of next office visit : Visit date not found Last 2 Encounter Wt Readings: Date: Wt: 03/09/2023 81.2 kg (179 lb) 02/10/2023 82.1 kg (181 lb) Not applicable Please advise. Alejandra Anderson Pss documented in this encounter [facility] 03-10-2023 Miscellaneous Notes Patient notified and voiced understanding. Lili Cardenas MA Labs overall look good. Her calcium level is borderline high again but only very slightly. Just recheck in a month or so to make sure not trending higher. Everything else was normal. documented in this encounter [facility] 03-09-2023 Note HNO ID: [id number] Author: Regina Nguyen PA-C Service: ? Author Type: Physician System Controller Type: Progress Notes Filed: 03/09/2023 1:42 PM Note Text: Chief Complaint Patient presents with: 6 Month Exam HPI Brittani Sage is a 77 year old female who presents here today for Chronic Medical Conditions.. Patient with hx of HTN, hyperlipidemia, CVA, insomnia, CLAIRE, GERD, hx of breast cancer, arthritis, incontinence/OAB, and those as below. Patient denies concerns today. Past medical history, appointments, medications, allergies reviewed. Previous Medical History PAST MEDICAL HISTORY Diagnosis Date Advance directive discussed with patient 09/08/2022 Discussed 08/2022: patient to bring in copies Arthritis Carcinoma of upper-outer quadrant of right female breast (HCC) 08/2020 Chronic pain of both knees 01/14/2021 CVA (cerebral vascular accident) ([facility]) 05/23/2022 05/21/2022 DDD (degenerative disc disease), lumbar 07/22/2021 Diverticulosis of colon 07/09/2018 Elevated hemoglobin A1c 01/09/2018 Essential hypertension 08/02/2013 Family history of GA (myocardial infarction) 12/18/2018 Dad and Brother in their 60's Generalized arthritis 01/04/2018 GERD without esophagitis 12/18/2018 Glaucoma 01/07/2019 History of kidney stones 01/10/2022 Living will on file at physician's office 09/08/2022 DPA: Jewel (son) Lumbar spinal stenosis 02/2020 Malignant neoplasm of upper-outer quadrant of right breast in female, estrogen receptor positive ([facility]) 09/30/2020 Mixed hyperlipidemia 08/02/2013 MVP (mitral valve prolapse) 08/02/2013 Obesity, Class II, BMI 35-39.9 08/10/2020 Obesity, Class III, BMI 40-49.9 (morbid obesity) ([facility]) 08/10/2020 CLAIRE (obstructive sleep apnea) Osteopenia, senile 07/31/2018 Pain in metatarsus of both feet 01/14/2021 dorsaly Primary insomnia 01/07/2019 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 Recurrent UTI 01/08/2015 Situational depression 02/04/2017 Trigger finger, left ring finger 07/09/2018 Urge incontinence 01/08/2015 Previous Surgical History PAST SURGICAL HISTORY Procedure Laterality Date ABDOMINAL SURGERY HX ARTHRP KNE CONDYLEANDPLATU MEDIALANDLAT COMPARTMENTS Left 2005 BREAST LUMPECTOMY HX Right 09/11/2020 BREAST SURGERY HX BX/EXC LYMPH NODE OPEN DEEP AXILLARY NODE Right 08/2020 CARPAL TUNNEL CEREBROVASCULAR THROMBECTOMY 05/21/2022 brain- CVA COLONOSCOPY COLONOSCOPY FLX DX W/COLLJ SPEC WHEN PFRMD 09/07/2021 CYSTOCELE REPAIR EXCISION GANGLION WRIST DORSAL/VOLAR PRIMARY EYE SURGERY HX HAND SURGERY HX thumgb surg HYSTERECTOMY HX N/A 1992 JOINT REPLACEMENT HX LEXISCAN STRESS TEST 12/28/2018 negative LITHOTRIPSY / 1 SIDE MASTECTOMY, PARTIAL Right 08/2020 PAST SURGICAL HISTORY OF Right 2004 Partial Right Knee Replacement REPAIR RECTOCELE SEPARATE PROCEDURE STRESS TEST 01/19/2018 normal VAGINAL HYSTERECTOMY Family History FAMILY HISTORY Problem Relation Age of Onset Heart Mother CHF Hypertension Mother Diabetes Mother Coronary Artery Disease Father early 60's Stroke Father Alzheimer's Disease Sister Diabetes Sister other (lung cancer) Sister Colon Cancer Sister Diabetes Sister Heart Sister valve replacement Diabetes Sister Diabetes Brother other (lung cancer) Brother Coronary Artery Disease Brother 60's Asthma Son Hodgkin Lymphoma Daughter Thyroid Cancer Daughter Hypertension Daughter Breast Cancer Daughter Hypertension Daughter Obesity Daughter Patient Allergies ALLERGIES No Known Allergies Current Medications Current Outpatient Medications on File Prior to Visit Medication Sig vibegron (GEMTESA) 75 mg tablet Take 75 mg by mouth once daily. traZODone (DESYREL) 50 mg tablet Take 1 tablet by mouth daily at bedtime. anastrozole (ARIMIDEX) 1 mg tablet take 1 tablet by mouth once daily losartan (COZAAR) 100 mg tablet Take 1 tablet by mouth once daily. simvastatin (ZOCOR) 20 mg tablet Take 1 tablet by mouth once daily. aspirin, enteric coated (ASPIRIN, ENTERIC COATED) 81 mg EC tablet Take 81 mg by mouth once daily. ascorbic acid (VITAMIN C ORAL) Take 1 tablet by mouth once daily. loratadine (CLARITIN) 10 mg tablet Take 10 mg by mouth once daily. timolol maleate (TIMOPTIC) 0.5 % drpd Use 1 Drop in both eyes twice daily. cholecalciferol (VITAMIN D3) 50 mcg (2,000 unit) tablet Take 2,000 Units by mouth twice daily. zinc once daily. vitamin b complex tab Take 1 tablet by mouth once daily. Calcium Carbonate 500 mg calcium (1,250 mg) capsule Take 1,250 mg by mouth twice daily with meals. Bzvkjfaquxgyq-Djpsrzvs-Hkffbx (CENTRUM SILVER) tab Take 1 tablet by mouth once daily. No current facility-administered medications on file prior to visit. Social History Social History Tobacco Use Smoking status: Never Smokeless tobacco: Never Vaping Use Vaping Use: Never used Substance Use Topics Alcohol use: No Drug use: No Review of Symptoms (more content not included)... [facility] documented as of this encounter (statuses as of 06/27/2023) [facility]-2023 History of Past illness Narrative* Problem Noted Date Diagnosed Date Resolved Date Obesity, Class III, BMI 40-4 9.9 (morbid obesity) 03/09/2023 06/26/2023 MVP (mitral valve prolapse) 08/02/2013 07/11/2019 documented as of this encounter (statuses as of 07/11/2023) [address]-2023 History of Past illness Narrative* Problem Noted Date Diagnosed Date Resolved Date Obesity, Class III, BMI 40-4 9.9 (morbid obesity) 03/09/2023 06/26/2023 MVP (mitral valve prolapse) 08/02/2013 07/11/2019 documented as of this encounter (statuses as of 07/11/2023) [address]23 History of Past illness Narrative* Problem Noted Date Diagnosed Date Resolved Date Obesity, Class III, BMI 40-4 9.9 (morbid obesity) 03/09/2023 06/26/2023 MVP (mitral valve prolapse) 08/02/2013 07/11/2019 documented as of this encounter (statuses as of 09/06/2023) [address]23 History of Past illness Narrative* Problem Noted Date Diagnosed Date Resolved Date Obesity, Class III, BMI 40-4 9.9 (morbid obesity) 03/09/2023 06/26/2023 MVP (mitral valve prolapse) 08/02/2013 07/11/2019 documented as of this encounter (statuses as of 09/07/2023) [address]23 History of Past illness Narrative* Problem Noted Date Diagnosed Date Resolved Date Obesity, Class III, BMI 40-4 9.9 (morbid obesity) 03/09/2023 06/26/2023 MVP (mitral valve prolapse) 08/02/2013 07/11/2019 documented as of this encounter (statuses as of 09/29/2023) [address]23 History of Past illness Narrative* Problem Noted Date Diagnosed Date Resolved Date Obesity, Class III, BMI 40-4 9.9 (morbid obesity) 03/09/2023 06/26/2023 MVP (mitral valve prolapse) 08/02/2013 07/11/2019 documented as of this encounter (statuses as of 09/30/2023) [address]23 History of Past illness Narrative* Problem Noted Date Diagnosed Date Resolved Date Obesity, Class III, BMI 40-4 9.9 (morbid obesity) 03/09/2023 06/26/2023 MVP (mitral valve prolapse) 08/02/2013 07/11/2019 documented as of this encounter (statuses as of 11/05/2023) [facility]2023 History of Present illness Narrative* Regina Nguyen PA-C - 03/09/2023 12:39 PM EDT Chief Complaint Patient presents with: 6 Month Exam HPI Brittani Sage is a 77 year old female who presents here today for Chronic Medical Conditions.. Patient with hx of HTN, hyperlipidemia, CVA, insomnia, CLAIRE, GERD, hx of breast cancer, arthritis, incontinence/OAB, and those as below. Patient denies concerns today. Past medical history, appointments, medications, allergies reviewed. Previous Medical History PAST MEDICAL HISTORY Diagnosis Date Advance directive discussed with patient 09/08/2022 Discussed 08/2022: patient to bring in copies Arthritis Carcinoma of upper-outer quadrant of right female breast (HCC) 08/2020 Chronic pain of both knees 01/14/2021 CVA (cerebral vascular accident) ([facility]) 05/23/2022 05/21/2022 DDD (degenerative disc disease), lumbar 07/22/2021 Diverticulosis of colon 07/09/2018 Elevated hemoglobin A1c 01/09/2018 Essential hypertension 08/02/2013 Family history of GA (myocardial infarction) 12/18/2018 Dad and Brother in their 60's Generalized arthritis 01/04/2018 GERD without esophagitis 12/18/2018 Glaucoma 01/07/2019 History of kidney stones 01/10/2022 Living will on file at physician's office 09/08/2022 DPA: Jewel (son) Lumbar spinal stenosis 02/2020 Malignant neoplasm of upper-outer quadrant of right breast in female, estrogen receptor positive ([facility]) 09/30/2020 Mixed hyperlipidemia 08/02/2013 MVP (mitral valve prolapse) 08/02/2013 Obesity, Class II, BMI 35-39.9 08/10/2020 Obesity, Class III, BMI 40-49.9 (morbid obesity) ([facility]) 08/10/2020 CLAIRE (obstructive sleep apnea) Osteopenia, senile 07/31/2018 Pain in metatarsus of both feet 01/14/2021 dorsaly Primary insomnia 01/07/2019 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 Recurrent UTI 01/08/2015 Situational depression 02/04/2017 Trigger finger, left ring finger 07/09/2018 Urge incontinence 01/08/2015 Previous Surgical History PAST SURGICAL HISTORY Procedure Laterality Date ABDOMINAL SURGERY HX ARTHRP KNE CONDYLE&PLATU MEDIAL&LAT COMPARTMENTS Left 2004 BREAST LUMPECTOMY HX Right 09/11/2020 BREAST SURGERY HX BX/EXC LYMPH NODE OPEN DEEP AXILLARY NODE Right 08/2020 CARPAL TUNNEL CEREBROVASCULAR THROMBECTOMY 05/21/2022 brain- CVA COLONOSCOPY COLONOSCOPY FLX DX W/COLLJ SPEC WHEN PFRMD 09/07/2021 CYSTOCELE REPAIR EXCISION GANGLION WRIST DORSAL/VOLAR PRIMARY EYE SURGERY HX HAND SURGERY HX thumgb surg HYSTERECTOMY HX N/A 1992 JOINT REPLACEMENT HX LEXISCAN STRESS TEST 12/28/2018 negative LITHOTRIPSY / 1 SIDE MASTECTOMY, PARTIAL Right 08/2020 PAST SURGICAL HISTORY OF Right 2003 Partial Right Knee Replacement REPAIR RECTOCELE SEPARATE PROCEDURE STRESS TEST 01/19/2018 normal VAGINAL HYSTERECTOMY Family History FAMILY HISTORY Problem Relation Age of Onset Heart Mother CHF Hypertension Mother Diabetes Mother Coronary Artery Disease Father early 60's Stroke Father Alzheimer's Disease Sister Diabetes Sister other (lung cancer) Sister Colon Cancer Sister Diabetes Sister Heart Sister valve replacement Diabetes Sister Diabetes Brother other (lung cancer) Brother Coronary Artery Disease Brother 60's Asthma Son Hodgkin Lymphoma Daughter Thyroid Cancer Daughter Hypertension Daughter Breast Cancer Daughter Hypertension Daughter Obesity Daughter Patient Allergies ALLERGIES No Known Allergies Current Medications Current Outpatient Medications on File Prior to Visit Medication Sig vibegron (GEMTESA) 75 mg tablet Take 75 mg by mouth once daily. traZODone (DESYREL) 50 mg tablet Take 1 tablet by mouth daily at bedtime. anastrozole (ARIMIDEX) 1 mg tablet take 1 tablet by mouth once daily losartan (COZAAR) 100 mg tablet Take 1 tablet by mouth once daily. simvastatin (ZOCOR) 20 mg tablet Take 1 tablet by mouth once daily. aspirin, enteric coated (ASPIRIN, ENTERIC COATED) 81 mg EC tablet Take 81 mg by mouth once daily. ascorbic acid (VITAMIN C ORAL) Take 1 tablet by mouth once daily. loratadine (CLARITIN) 10 mg tablet Take 10 mg by mouth once daily. timolol maleate (TIMOPTIC) 0.5 % drpd Use 1 Drop in both eyes twice daily. cholecalciferol (VITAMIN D3) 50 mcg (2,000 unit) tablet Take 2,000 Units by mouth twice daily. zinc once daily. vitamin b complex tab Take 1 tablet by mouth once daily. Calcium Carbonate 500 mg calcium (1,250 mg) capsule Take 1,250 mg by mouth twice daily with meals. Icbgzxlblvmzo-Fafapfiv-Kcigel (CENTRUM SILVER) tab Take 1 tablet by mouth once daily. No current facility-administered medications on file prior to visit. Social History Social History Tobacco Use Smoking status: Never Smokeless tobacco: Never Vaping Use Vaping Use: Never used Substance Use Topics Alcohol use: No Drug use: No Review of Symptoms REVIEW OF SYSTEMS GENERAL: No weight loss, malaise or fevers NECK: Negative for lumps, goiter, pain and significant neck swelling RESPIRATORY: Negative for cough, hemoptysis, wheezing, COPD, dyspnea or shortness of breath CARDIOVASCULAR: Negative for chest pain, leg swelling, hypertension, CHF or palpitations NEURO: No history of headaches, syncope, paralysis, seizures or tremors GASTRO: has had some episodes when food gets stuck while swallowing. Worse with dry foods. Not all the time. EXAM: BP 110/76 (BP Site: Left Arm, BP Position: Sitting, BP Cuff Size: Large Adult) Pulse 66 Temp 36.6 C (97.8 F) Resp 18 Wt 81.2 kg (179 lb) BMI 34.38 kg/m General Appearance: Well appearing, alert, in no acute distress, well-hydrated, well nourished.. Neck: Supple, no adenopathy; thyroid symmetric, normal size, no bruits. Lungs: Lungs clear to auscultation. No wheezing, rhonchi, rales.. Heart: RRR without murmur, gallop, or rubs. No ectopy. Extremities: No deformities, edema, skin discoloration, clubbing or cyanosis. Good capillary refill. . Peripheral Pulses: Normal. Health Maintenance List ADVANCE DIRECTIVE DISCUSSION due on 10/30/2022 DTAP,TDAP,TD(2 - Tdap) due on 09/08/2023 SHINGRIX VACCINE(2 of 3) due on 09/08/2023 ANNUAL PCP TEAM CHRONIC DISEASE VISIT due on 02/11/2024 BP CONTROLLED (<130/80) due on 02/11/2024 COLORECTAL CANCER SCREENING due on 09/07/2024 DIABETES SCREEN due on 09/08/2025 BONE DENSITY Completed INFLUENZA Completed COVID-19 VACCINE Completed PNEUMOCOCCAL: 65+ Completed Data reviewed N/a ASSESSMENT/PLAN: 1. Essential hypertension - ICD9: 401.9, ICD10: I10 (primary diagnosis) - good control - Continue current medication(s) - Recommended regular aerobic exercise. - Recommend home blood pressure monitoring, to bring results in on next visit - Goal of BP <130/80 - COMP METABOLIC PANEL 2. Mixed hyperlipidemia - ICD9: 272.2, ICD10: E78.2 - to be determined upon return of lab results - Encouraged following a low carbohydrate, healthy oil intake diet. - Continue current therapy. - LIPID PANEL, NONFASTING 3. Elevated hemoglobin A1c - ICD9: 790.29, ICD10: R73.09 Await labs - HGB A1C - COMP METABOLIC PANEL 4. Urge incontinence - ICD9: 788.31, ICD10: N39.41 Cont with urology 5. Cerebrovascular accident (CVA) due to occlusion of cerebral artery (HCC) - ICD9: 434.91, ICD10: I63.50 Stable symptomatic 6. GERD without esophagitis - ICD9: 530.81, ICD10: K21.9 Will have patient restart PPI to see if it helps with her intermittent swallowing issues. She may take every other day initially. Regina Nguyen PA-C documented [facility] encounter[facility]23 Miscellaneous Notes* Telephone Encounter - Samina Keita Ma - 02/20/2023 7:15 PM EDT Mychart message sent to pt notifying her of results from Provider. If questions to contact the office. Samina Keita Ma documented in this encounterAccess [facility] [place]04-17-2023 Miscellaneous Notes* Telephone Encounter - Maximilian Disla RN - 02/13/2023 11:31 AM EDT Patient returned call and given provider's message below with verbalized understanding. * Telephone Encounter - Samina Keita Ma - 02/13/2023 10:43 AM EDT Called and left message on patients voicemail to return call to the office and ask to speak with a triage nurse. Samina Keita Ma * Telephone Encounter - Danny Guidry APRN.CNP - 02/13/2023 10:30 AM EDT Let the patient know that her urine culture showed a small amount of bacteria growing. Nothing significant. She can continue and finish the antibiotic. We should repeat urine in 1-2 weeks to ensure that blood is gone in her urine. Danny Guidry APRN.CNP * Telephone Encounter - Pao Raman RN - 02/13/2023 10:14 AM EDT Patient calls and asking about results from urine culture. Please review and advise, Pao Raman RN documented in this encounterAccess [facility]04-14-2023 NoteHNO ID: [id number] Author: Danny Guidry APRN.CNP Service: ? Author Type: Nurse Practitioner Type: Progress Notes Filed: 02/10/2023 10:25 AM Note Text: Chief Complaint Patient presents with: UTI HPI Brittani Sage is a 77 year old female who presents here today for Above Complaints. Urology: patient is concerned about urinary symptoms. Duration of symptoms: 2 Dysuria: No. Urinary urgency: Yes. Urinary frequency: Yes. Suprapubic pain: No. Back pain: No. Fever: No. Nausea: No. Vomiting: No. History of urge incontinence. Prescribed Vesicare 10 mg once daily . Requesting to a see a urologist. Not really working. Past medical history, appointments, medications, allergies reviewed. EXAM: BP 123/74 Pulse 69 Temp 36.2 ?C (97.1 ?F) (Left Tympanic) Resp 16 Wt 82.1 kg (181 lb) SpO2 98% BMI 34.17 kg/m? General Appearance: Well appearing, alert, in no acute distress, well-hydrated, well nourished.. Lungs: Lungs clear to auscultation. No wheezing, rhonchi, rales.. Heart: RRR without murmur, gallop, or rubs. No ectopy. Abdomen: Normal abdominal exam, Abdomen soft, non-tender. Bowel sounds normal. No masses, organomegaly ASSESSMENT/PLAN: 1. UTI symptoms - ICD9: 788.99, ICD10: R39.9 (primary diagnosis) -UA showing blood, leukocytes. Send culture. Started on Macrobid twice daily. Have patient follow-up with urology for ineffective treatment of urge incontinence. - UA DIP, URINE (POC) - URINE CULTURE - NITROFURANTOIN MONOHYDRATE AND MACROCRYSTAL 100 MG ORAL CAP 2. Urge incontinence - ICD9: 788.31, ICD10: N39.41 -Refer to female urologist, Liliana Vzaquez - CONSULT TO UROLOGY Danny Guidry APRN.CNP . RTO if needed. This note was partly generated using [employer] voice recognition dictation and may contain some misspelled or inaccurate words missed on review.[facility]04-14-[facility] Instructions* Patient Instructions* Danny Guidry APRN.CNP - 02/10/2023 9:50 AM EDT Start antibiotic twice daily for 7 days We sent a culture to ensure it will treat the bacteria. Increase fluid intake. 4. Please call to schedule appointment with: Liliana Vazquez MD ADDRESS: [address] [place] [address], [address] [place], [place] [id number] PHONE NUMBER: SPECIALITY: Urology Care documented in this encounterAccess [facility]04-14-2023 History of Present illness Narrative* Danny Guidry APRN.CNP - 02/10/2023 9:40 AM EDT Chief Complaint Patient presents with: UTI HPI Brittani Sage is a 77 year old female who presents here today for Above Complaints. Urology: patient is concerned about urinary symptoms. Duration of symptoms: 2 Dysuria: No. Urinary urgency: Yes. Urinary frequency: Yes. Suprapubic pain: No. Back pain: No. Fever: No. Nausea: No. Vomiting: No. History of urge incontinence. Prescribed Vesicare 10 mg once daily . Requesting to a see a urologist. Not really working. Past medical history, appointments, medications, allergies reviewed. EXAM: BP 123/74 Pulse 69 Temp 36.2 C (97.1 F) (Left Tympanic) Resp 16 Wt 82.1 kg (181 lb) SpO2 98% BMI 34.17 kg/m General Appearance: Well appearing, alert, in no acute distress, well-hydrated, well nourished.. Lungs: Lungs clear to auscultation. No wheezing, rhonchi, rales.. Heart: RRR without murmur, gallop, or rubs. No ectopy. Abdomen: Normal abdominal exam, Abdomen soft, non-tender. Bowel sounds normal. No masses, organomegaly ASSESSMENT/PLAN: 1. UTI symptoms - ICD9: 788.99, ICD10: R39.9 (primary diagnosis) -UA showing blood, leukocytes. Send culture. Started on Macrobid twice daily. Have patient follow-up with urology for ineffective treatment of urge incontinence. - UA DIP, URINE (POC) - URINE CULTURE - NITROFURANTOIN MONOHYDRATE & MACROCRYSTAL 100 MG ORAL CAP 2. Urge incontinence - ICD9: 788.31, ICD10: N39.41 -Refer to female urologist, Liliana Vazquez - CONSULT TO UROLOGY Danny Guidry APRN.CNP . RTO if needed. This note was partly generated using [employer] voice recognition dictation and may contain some misspelled or inaccurate words missed on review. documented in this encounterAccess [facility]03-22-2023 NoteHNO ID: [id number] Author: Regina Nguyen PA-C Service: ? Author Type: Physician System Controller Type: Progress Notes Filed: 01/18/2023 8:58 AM Note Text: Chief Complaint Patient presents with: Recheck: CT results HPI Brittani Sage is a 77 year old female who presents here today for Above Complaints.. Patient has had a lump on her chest and came to PCP who did xray. It was overall negative so given her hx of breast cancer she discussed with oncology who did a CT scan. This showed b/l sternoclavicular Degenerative changes with capsular hypertrophy. Greater on left. Patient denies pain but now with some shoulder movements she is starting to notice more pain. Patient also state that she is still having urinary issues. She reports that when she first started vesicare she did note improvement but that improvement has since decreased. She is interested in higher dose She also concerned with insomnia. States she can't always relax enough at night to fall asleep. Past medical history, appointments, medications, allergies reviewed. Previous Medical History PAST MEDICAL HISTORY Diagnosis Date Advance directive discussed with patient 09/08/2022 Discussed 08/2022: patient to bring in copies Arthritis Carcinoma of upper-outer quadrant of right female breast ([facility]) 08/2020 Chronic pain of both knees 01/14/2021 CVA (cerebral vascular accident) ([facility]) 05/23/2022 05/21/2022 DDD (degenerative disc disease), lumbar 07/22/2021 Diverticulosis of colon 07/09/2018 Elevated hemoglobin A1c 01/09/2018 Essential hypertension 08/02/2013 Family history of GA (myocardial infarction) 12/18/2018 Dad and Brother in their 60's Generalized arthritis 01/04/2018 GERD without esophagitis 12/18/2018 Glaucoma 01/07/2019 History of kidney stones 01/10/2022 Living will on file at physician's office 09/08/2022 DPA: Jewel (son) Lumbar spinal stenosis 02/2020 Malignant neoplasm of upper-outer quadrant of right breast in female, estrogen receptor positive ([facility]) 09/30/2020 Mixed hyperlipidemia 08/02/2013 MVP (mitral valve prolapse) 08/02/2013 Obesity, Class II, BMI 35-39.9 08/10/2020 Obesity, Class III, BMI 40-49.9 (morbid obesity) ([facility]) 08/10/2020 CLAIRE (obstructive sleep apnea) Osteopenia, senile 07/31/2018 Pain in metatarsus of both feet 01/14/2021 dorsaly Primary insomnia 01/07/2019 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 Recurrent UTI 01/08/2015 Situational depression 02/04/2017 Trigger finger, left ring finger 07/09/2018 Urge incontinence 01/08/2015 Previous Surgical History PAST SURGICAL HISTORY Procedure Laterality Date ABDOMINAL SURGERY HX ARTHRP KNE CONDYLEANDPLATU MEDIALANDLAT COMPARTMENTS Left 2004 BREAST LUMPECTOMY HX Right 09/11/2020 BREAST SURGERY HX BX/EXC LYMPH NODE OPEN DEEP AXILLARY NODE Right 08/2020 CARPAL TUNNEL CEREBROVASCULAR THROMBECTOMY 05/21/2022 brain- CVA COLONOSCOPY COLONOSCOPY FLX DX W/COLLJ SPEC WHEN PFRMD 09/07/2021 CYSTOCELE REPAIR EXCISION GANGLION WRIST DORSAL/VOLAR PRIMARY EYE SURGERY HX HAND SURGERY HX thumgb surg HYSTERECTOMY HX N/A 1991 JOINT REPLACEMENT HX LEXISCAN STRESS TEST 12/28/2018 negative LITHOTRIPSY / 1 SIDE MASTECTOMY, PARTIAL Right 08/2020 PAST SURGICAL HISTORY OF Right 2003 Partial Right Knee Replacement REPAIR RECTOCELE SEPARATE PROCEDURE STRESS TEST 01/19/2018 normal VAGINAL HYSTERECTOMY Family History FAMILY HISTORY Problem Relation Age of Onset Heart Mother CHF Hypertension Mother Diabetes Mother Coronary Artery Disease Father early 60's Stroke Father Alzheimer's Disease Sister Diabetes Sister other (lung cancer) Sister Colon Cancer Sister Diabetes Sister Heart Sister valve replacement Diabetes Sister Diabetes Brother other (lung cancer) Brother Coronary Artery Disease Brother 60's Asthma Son Hodgkin Lymphoma Daughter Thyroid Cancer Daughter Hypertension Daughter Breast Cancer Daughter Hypertension Daughter Obesity Daughter Patient Allergies ALLERGIES No Known Allergies Current Medications Current Outpatient Medications on File Prior to Visit Medication Sig anastrozole (ARIMIDEX) 1 mg tablet take 1 tablet by mouth once daily sertraline (ZOLOFT) 50 mg tablet Take 1 tablet by mouth once daily. losartan (COZAAR) 100 mg tablet Take 1 tablet by mouth once daily. simvastatin (ZOCOR) 20 mg tablet Take 1 tablet by mouth once daily. solifenacin (VESICARE) 5 mg tablet Take 1 tablet by mouth once daily. aspirin, enteric coated (ASPIRIN, ENTERIC COATED) 81 mg EC tablet Take 81 mg by mouth once daily. ascorbic acid (VITAMIN C ORAL) Take 1 tablet by mouth once daily. loratadine (CLARITIN) 10 mg tablet Take 10 mg by mouth once daily. timolol maleate (TIMOPTIC) 0.5 % drpd Use 1 Drop in both eyes twice daily. cholecalciferol (VITAMIN D3) 50 mcg (2,000 unit) tablet Take 2,000 Units by mouth twice daily. zinc once daily. lysine 500 mg tab Take (more content not included)...[facility] 01-18-2023 History of Present illness Narrative* Regina Nguyen PA-C - 01/18/2023 7:40 AM EDT Chief Complaint Patient presents with: Recheck: CT results HPI Brittani Sage is a 77 year old female who presents here today for Above Complaints.. Patient has had a lump on her chest and came to PCP who did xray. It was overall negative so given her hx of breast cancer she discussed with oncology who did a CT scan. This showed b/l sternoclavicular Degenerative changes with capsular hypertrophy. Greater on left. Patient denies pain but now with some shoulder movements she is starting to notice more pain. Patient also state that she is still having urinary issues. She reports that when she first startedvesicare she did note improvement but that improvement has since decreased. She is interested in higher dose She also concerned with insomnia. States she can't always relax enough at night to fall asleep. Past medical history, appointments, medications, allergies reviewed. Previous Medical History PAST MEDICAL HISTORY Diagnosis Date Advance directive discussed with patient 09/08/2022 Discussed 08/2022: patient to bring in copies Arthritis Carcinoma of upper-outer quadrant of right female breast (HCC) 08/2020 Chronic pain of both knees 01/14/2021 CVA (cerebral vascular accident) (HCC) 05/23/2022 05/21/2022 DDD (degenerative disc disease), lumbar 07/22/2021 Diverticulosis of colon 07/09/2018 Elevated hemoglobin A1c 01/09/2018 Essential hypertension 08/02/2013 Family history of GA (myocardial infarction) 12/18/2018 Dad and Brother in their 60's Generalized arthritis 01/04/2018 GERD without esophagitis 12/18/2018 Glaucoma 01/07/2019 History of kidney stones 01/10/2022 Living will on file at physician's office 09/08/2022 DPA: Jewel (son) Lumbar spinal stenosis 02/2020 Malignant neoplasm of upper-outer quadrant of right breast in female, estrogen receptor positive (HCC) 09/30/2020 Mixed hyperlipidemia 08/02/2013 MVP (mitral valve prolapse) 08/02/2013 Obesity, Class II, BMI 35-39.9 08/10/2020 Obesity, Class III, BMI 40-49.9 (morbid obesity) ([facility]) 08/10/2020 CLAIRE (obstructive sleep apnea) Osteopenia, senile 07/31/2018 Pain in metatarsus of both feet 01/14/2021 dorsaly Primary insomnia 01/07/2019 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 Recurrent UTI 01/08/2015 Situational depression 02/04/2017 Trigger finger, left ring finger 07/09/2018 Urge incontinence 01/08/2015 Previous Surgical History PAST SURGICAL HISTORY Procedure Laterality Date ABDOMINAL SURGERY HX ARTHRP KNE CONDYLE&PLATU MEDIAL&LAT COMPARTMENTS Left 2005 BREAST LUMPECTOMY HX Right 09/11/2020 BREAST SURGERY HX BX/EXC LYMPH NODE OPEN DEEP AXILLARY NODE Right 08/2020 CARPAL TUNNEL CEREBROVASCULAR THROMBECTOMY 05/21/2022 brain- CVA COLONOSCOPY COLONOSCOPY FLX DX W/COLLJ SPEC WHEN PFRMD 09/07/2021 CYSTOCELE REPAIR EXCISION GANGLION WRIST DORSAL/VOLAR PRIMARY EYE SURGERY HX HAND SURGERY HX thumgb surg HYSTERECTOMY HX N/A 1992 JOINT REPLACEMENT HX LEXISCAN STRESS TEST 12/28/2018 negative LITHOTRIPSY / 1 SIDE MASTECTOMY, PARTIAL Right 08/2020 PAST SURGICAL HISTORY OF Right 2004 Partial Right Knee Replacement REPAIR RECTOCELE SEPARATE PROCEDURE STRESS TEST 01/19/2018 normal VAGINAL HYSTERECTOMY Family History FAMILY HISTORY Problem Relation Age of Onset Heart Mother CHF Hypertension Mother Diabetes Mother Coronary Artery Disease Father early 60's Stroke Father Alzheimer's Disease Sister Diabetes Sister other (lung cancer) Sister Colon Cancer Sister Diabetes Sister Heart Sister valve replacement Diabetes Sister Diabetes Brother other (lung cancer) Brother Coronary Artery Disease Brother 60's Asthma Son Hodgkin Lymphoma Daughter Thyroid Cancer Daughter Hypertension Daughter Breast Cancer Daughter Hypertension Daughter Obesity Daughter Patient Allergies ALLERGIES No Known Allergies Current Medications Current Outpatient Medications on File Prior to Visit Medication Sig anastrozole (ARIMIDEX) 1 mg tablet take 1 tablet by mouth once daily sertraline (ZOLOFT) 50 mg tablet Take 1 tablet by mouth once daily. losartan (COZAAR) 100 mg tablet Take 1 tablet by mouth once daily. simvastatin (ZOCOR) 20 mg tablet Take 1 tablet by mouth once daily. solifenacin (VESICARE) 5 mg tablet Take 1 tablet by mouth once daily. aspirin, enteric coated (ASPIRIN, ENTERIC COATED) 81 mg EC tablet Take 81 mg by mouth once daily. ascorbic acid (VITAMIN C ORAL) Take 1 tablet by mouth once daily. loratadine (CLARITIN) 10 mg tablet Take 10 mg by mouth once daily. timolol maleate (TIMOPTIC) 0.5 % drpd Use 1 Drop in both eyes twice daily. cholecalciferol (VITAMIN D3) 50 mcg (2,000 unit) tablet Take 2,000 Units by mouth twice daily. zinc once daily. lysine 500 mg tab Take 2 tablets by mouth once daily. vitamin b complex tab Take 1 tablet by mouth once daily. Calcium Carbonate 500 mg calcium (1,250 mg) capsule Take 1,250 mg by mouth twice daily with meals. Gabkllbdeldbp-Wxcyntbu-Xqegoa (CENTRUM SILVER) tab Take 1 tablet by mouth once daily. No current facility-administered medications on file prior to visit. Social History Social History Tobacco Use Smoking status: Never Smokeless tobacco: Never Vaping Use Vaping Use: Never used Substance Use Topics Alcohol use: No Drug use: No Review of Symptoms REVIEW OF SYSTEMS See hpi EXAM: BP 118/80 (BP Site: Left Arm, BP Position: Sitting, BP Cuff Size: Large Adult) Pulse 62 Temp 36.3 C (97.3 F) Resp 16 Wt 82.1 kg (181 lb) BMI 34.17 kg/m General Appearance: Well appearing, alert, in no acute distress, well-hydrated, well nourished.. Health Maintenance List ADVANCE DIRECTIVE DISCUSSION due on 10/30/2022 DTAP,TDAP,TD(2 - Tdap) due on 09/08/2023 SHINGRIX VACCINE(2 of 3) due on 09/08/2023 ANNUAL PCP TEAM CHRONIC DISEASE VISIT due on 09/08/2023 BP CONTROLLED (<130/80) due on 01/10/2024 COLORECTAL CANCER SCREENING due on 09/07/2024 DIABETES SCREEN due on 09/08/2025 BONE DENSITY Completed INFLUENZA Completed COVID-19 VACCINE Completed PNEUMOCOCCAL: 65+ Completed Data reviewed CT Chest 12/30/22 IMPRESSION: Degenerative osteophytic changes at the bilateral sternoclavicular joints with capsular hypertrophy, greater on the left. No evidence of metastatic disease. Post surgical changes in the right breast and axilla. Remote granulomatous disease. ASSESSMENT/PLAN: 1. Acute pain of left shoulder - ICD9: 719.41, ICD10: M25.512 (primary diagnosis) Will have patient try Physical Therapy 2 weeks of mobic sent for patient. Would not want her to stay on this residential - CONSULT TO PHYSICAL THERAPY 2. Pain of left clavicle - ICD9: 733.90, ICD10: M89.8X1 As above Will trial Physical Therapy Patient may need to discuss with pain management - CONSULT TO PHYSICAL THERAPY 3. Primary insomnia - ICD9: 307.42, ICD10: F51.01 Start trazodone 4. Urge incontinence - ICD9: 788.31, ICD10: N39.41 Increase vesicare to 10mg. Discussed goodrx savings options with patient. Follow up as scheduled in February. Regina Nguyen PA-C documented [facility] encounterAccess [facility]03-17-[facility]23 Miscellaneous Notes* Telephone Encounter - Norma Mcmillan LPN - 01/13/2023 8:21 AM EDT Patient is aware to contact PCP. Norma Mcmillan LPN * Telephone Encounter - Tammi Dodson APRN.CNP - 01/13/2023 8:15 AM EDT PCP. Thank you. Tammi Dodson APRN.MITZY * Telephone Encounter - Norma Mcmillan LPN - 01/12/2023 5:05 PM EDT Patient states left clavicle is still sore and now has pain radiating down her left arm the last 7 days. Patient has been using a heating pad and taking Tylenol 1000 mg Q [address] chest 12/30/2022- Degenerative osteophytic changes at the bilateral sternoclavicular joints with capsular hypertrophy, greater on the left. No evidence of metastatic disease. Patient is asking if she should see her PCP or a oil heat technician regarding this? Norma Mcmillan LPN * Telephone Encounter - Myrtle Chahal Pss - 01/12/2023 3:23 PM EDT Patient states she is still having pain from lump on collarbone. Had recent CT she states showing no cancer. She is requesting to speak to clinical about next step. documented in this encounterAccess [facility]03-13-2023 NoteHNO ID: [id number] Author: Oscar Beard MD Service: ? Author Type: Physician Type: Progress Notes Filed: 01/09/2023 2:34 PM Note Text: Patient presents with: Chest Congestion: cough x 6 days HPI: Feeling sick for 1 week without improvement. Positive symptoms: Thick green mucus from head and chest, cough, Sinus pressure, Nasal Congestion, Rhinorrhea, Post nasal drainage, Malaise, Fatigue, Headache, improved sore throat and hoarse voice, Negative symptoms: Shortness of breath, Wheezing, Chest pain, Fever, Nausea, Vomiting, Diarrhea, OTC: Robitussin at bed time, Tylenol Prominent sternoclavicular junction, left shoulder pain. Home COVID test negative. MEDICATIONS: Current Outpatient Medications Medication Sig anastrozole (ARIMIDEX) 1 mg tablet take 1 tablet by mouth once daily sertraline (ZOLOFT) 50 mg tablet Take 1 tablet by mouth once daily. losartan (COZAAR) 100 mg tablet Take 1 tablet by mouth once daily. simvastatin (ZOCOR) 20 mg tablet Take 1 tablet by mouth once daily. solifenacin (VESICARE) 5 mg tablet Take 1 tablet by mouth once daily. aspirin, enteric coated (ASPIRIN, ENTERIC COATED) 81 mg EC tablet Take 81 mg by mouth once daily. ascorbic acid (VITAMIN C ORAL) Take 1 tablet by mouth once daily. loratadine (CLARITIN) 10 mg tablet Take 10 mg by mouth once daily. timolol maleate (TIMOPTIC) 0.5 % drpd Use 1 Drop in both eyes twice daily. cholecalciferol (VITAMIN D3) 50 mcg (2,000 unit) tablet Take 2,000 Units by mouth twice daily. zinc once daily. lysine 500 mg tab Take 2 tablets by mouth once daily. vitamin b complex tab Take 1 tablet by mouth once daily. Calcium Carbonate 500 mg calcium (1,250 mg) capsule Take 1,250 mg by mouth twice daily with meals. Hqpmsmzhksddo-Jbxfjlke-Hoymik (CENTRUM SILVER) tab Take 1 tablet by mouth once daily. No current facility-administered medications for this visit. ALLERGIES: ALLERGIES No Known Allergies VITALS: BP 122/76 Pulse 88 Temp 37.8 ?C (100 ?F) Resp 16 Wt 81.2 kg (179 lb) SpO2 96% BMI 33.80 kg/m? PHYSICAL EXAM: GEN: mildly ill appearing HEENT: PERRL, EOMI, conjunctiva clear Ears: canals clear. TMs without erythema, bulge, or effusion Sinuses: non-tender frontal sinus, non-tender maxillary sinuses Throat: moist mucous membranes, mild erythema, no exudate Neck: supple, no thyromegaly, no lymphadenopathy HEART: regular rate and rhythm, no murmurs LUNGS: clear to auscultation, no wheezes or crackles, no increased WOB ASSESSMENT/PLAN: 1. Sinobronchitis - ICD9: 473.9, 490, ICD10: J32.9, J40 - suspect viral URI - Discussed supportive care treatment with rest, cough medicine, and analgesia. Printed - DOXYCYCLINE MONOHYDRATE 100 MG CAPSULE to fill if not improving or worsening in 3 days. Oscar Beard, [facility]03-06-2023 Miscellaneous Notes* Telephone Encounter - Fernanda Perez LPN - 01/02/2023 3:02 PM EST Pt. Notified of results, voiced understanding. Fernanda Perez LPN * Telephone Encounter - Tammi Dodson APRN.CNP - 01/02/2023 2:55 PM EST Please inform pt. that CT chest shows no concerning findings of cancer. Follow up as scheduled. Thank you. Tammi Dodson APRN.MITZY documented [facility] Miscellaneous Notes* Telephone Encounter - Laura Mccallum - 12/30/2022 12:26 PM EST Spoke with pt and cancelled OV as directed * Telephone Encounter - Tammi Dodson APRN.CNP - 12/30/2022 11:03 AM EST Please cancel that OV. I need her CT results first. Thank you. Tammi Dodson APRN.MITZY * Telephone Encounter - Pao Segal - 12/30/2022 9:23 AM EST Patient presented at [facility] desk maker and scheduled follow up with Darby. TORRES - please see note below. Pao Segal * Telephone Encounter - Laura Mccallum - 12/29/2022 11:21 AM EST Spoke with pt and scheduled as directed. Pt will stop in office after her scan to schedule a followup OV. Pt asked to inform provider that since her visit she has experienced growing pain. Stated that whenshe sneezes it hurts pretty bad and stated that her pain is a 6. She also stated that she did not mention at her visit due to forgetting. That she has been having ahard time swallowing. That sometimes when she's eating she needs to cough her food back up because it gets stuck. * Telephone Encounter - Tammi Dodson APRN.CNP - 12/28/2022 2:20 PM EST Attempted to return call. No answer. Please inform pt. that xray shows no abnormality. I'd like to order a CT chest. If pt. agreeable schedule when able. Thank you. Tammi Dodson APRN.MITZY * Telephone Encounter - Massiel Kaminski - 12/28/2022 1:36 PM EST Patient is requesting to be contacted by a clinical caregiver to review the results of her x-ray. documented in this encounterAccess [facility] [place]03-[facility]-2023 NoteHNO ID: [id number] Author: RT Richard(R) Service: ? Author Type: Hotel Service Manager Type: Progress Notes Filed: 12/30/2022 11:21 AM Note Text: Radiology Service Progress Note DATE OF SERVICE: December 30, 2022 TIME: 11:20 AM PATIENT IDENTITY VERIFICATION COMPLETED USING TWO (2) STANDARD IDENTIFIERS: Name and Date of confirmed by patient verbally. FALL SCREENING: Has the patient had 2 falls in the last year or 1 fall with injury or currently using an Ambulatory Assistive Device (Walker, Cane, Wheelchair, Crutches, etc.)? No PATIENT GENDER DATA: Female. status: : No status: NO. PATIENT RELEVANT IMPLANT DATA REVIEWED: Yes ALLERGIES: Reviewed and unchanged CONTRAST ALLERGY: NO. EXAM: CT -CONTRAST INDUCED NEPHROPATHY RISK FACTORS: Patient age > 60 years CREATININE: Creatinine Date Value Ref Range Status 12/30/2022 0.79 0.58 - 0.96 mg/dL Final 09/08/2022 0.82 0.58 - 0.96 mg/dL Final 02/09/2022 0.95 0.58 - 0.96 mg/dL Final Estimated Glomerular Filtration Rate Date Value Ref Range Status 12/30/2022 76 >=60 mL/min/1.73m? Final Comment: Estimated Glomerular Filtration Rate (eGFR) is calculated using the 2020 CKD-EPI creatinine equation. This equation utilizes serum creatinine, sex, and age as parameters. The creatinine assay has traceable calibration to isotope dilution-mass spectrometry. Refer to KDIGO guidelines for clinical interpretation. In patients with unstable renal function, e.g. those with acute kidney injury, the eGFR may not accurately reflect actual GFR. eGFR- Date Value Ref Range Status 07/22/2021 >60 Final P.O.C.T. RESULTS: POC done: Yes, See Lab Tab December 30, 2022 TREATMENT: N/A PERIPHERAL IV DATA: Ambulatory: A peripheral IV was started in the Left antecubital site with a Angio cath: 22 gauge. RADIOLOGY DEPARTMENT: CT; Exam(s) Completed: Chest SIGNATURE: Marcie BennettTishRT Gutierrez(R) PATIENT NAME: Brittani Sage DATE: December 30, 2022 TIME: 11:20 [facility]03-03-2023 History of Present illness Narrative* Marcie Dixon, RT(R) - 12/30/2022 8:40 AM EST Radiology Service Progress Note DATE OF SERVICE: December 30, 2022 TIME: 11:20 AM PATIENT IDENTITY VERIFICATION COMPLETED USING TWO (2) STANDARD IDENTIFIERS: Name and Date of confirmed by patient verbally. FALL SCREENING: Has the patient had 2 falls in the last year or 1 fall with injury or currently using an Ambulatory Assistive Device (Walker, Cane, Wheelchair, Crutches, etc.)? No PATIENT GENDER DATA: Female. status: : No status: NO. PATIENT RELEVANT IMPLANT DATA REVIEWED: Yes ALLERGIES: Reviewed and unchanged CONTRAST ALLERGY: NO. EXAM: CT -CONTRAST INDUCED NEPHROPATHY RISK FACTORS: Patient age > 60 years CREATININE: Creatinine Date Value Ref Range Status 12/30/2022 0.79 0.58 - 0.96 mg/dL Final 09/08/2022 0.82 0.58 - 0.96 mg/dL Final 02/09/2022 0.95 0.58 - 0.96 mg/dL Final Estimated Glomerular Filtration Rate Date Value Ref Range Status 12/30/2022 76 >=60 mL/min/1.73m Final Comment: Estimated Glomerular Filtration Rate (eGFR) is calculated using the 2020 CKD-EPI creatinine equation. This equation utilizes serum creatinine, sex, and age as parameters. The creatinine assay has traceable calibration to isotope dilution- mass spectrometry. Refer to KDIGO guidelines for clinical interpretation. In patients with unstable renal function, e.g. those with acute kidney injury, the eGFRmay not accurately reflect actual GFR. eGFR- Date Value Ref Range Status 07/22/2021 >60 Final P.O.C.T. RESULTS: POC done: Yes, See Lab Tab December 30, 2022 TREATMENT: N/A PERIPHERAL IV DATA: Ambulatory: A peripheral IV was started in the Left antecubital site with a Angio cath: 22 gauge. RADIOLOGY DEPARTMENT: CT; Exam(s) Completed: Chest SIGNATURE: RT Farhad(Erin) PATIENT NAME: Brittani Sage DATE: December 30, 2022 TIME: 11:20 AM documented in this encounterAccess [facility]02-27-2023 NoteHNO ID: [id number] Author: RT Amber(Erin) Service: ? Author Type: Technologist Type: Progress Notes Filed: 12/26/2022 10:16 AM Note Text: Radiology Service Progress Note PATIENT NAME: Brittani Sage DATE OF SERVICE: December 26, 2022 TIME: 10:12 AM PATIENT IDENTITY VERIFICATION COMPLETED USING TWO (2) IDENTIFIERS: Name and Date of confirmed by patient verbally. FALL SCREENING: Has the patient had 2 falls in the last year or 1 fall with injury or currently using an Ambulatory Assistive Device (Walker, Cane, Wheelchair, Crutches, etc.)? No PATIENT GENDER DATA: Female. status: : No status: NO. PATIENT RELEVANT IMPLANT DATA REVIEWED: Not Applicable RADIOLOGY DEPARTMENT: General X-ray: Exam(s) Completed: Upper Extremity X-Ray(s): Clavicle, left PERIPHERAL IV DATA: Not applicable SIGNED BY: RT Amber(R) December 26, 2022 10:12 [facility]02-27-2023 NoteHNO ID: [id number] Author: Tammi Dodson APRN.STEREOTYPE FINISHER Service: ? Author Type: Nurse Practitioner Type: Progress Notes Filed: 12/26/2022 9:30 AM Note Text: Chief Complaint Patient presents with: Established Patient HPI: Brittani Sage is a 77 year old female who presents here today for complaints of lump to sternum. See phone note. Per Dr. Spencer's previous note: H/o kidney stones, obstructive sleep apnea, hypertension, mixed hyperlipidemia, mitral valve prolapse, GERD, diverticulosis and glaucoma. Mammograms (outside films) 08/18/2020 IMPRESSION: 7.2 mm x 5.6 mm nodule in the slightly upper lateral anterior aspect of the right breast as described. Correlation with ultrasound is recommended. US right breast (outside films) 08/24/2020 IMPRESSION: 7 mm x 6 mm x 6 mm hypoechoic irregular nodule at the 10 o''clock position breast at 2 cm from nipple. 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 Estrogen Receptor (ER) Positive (>95%) Progesterone Receptor (PgR) Positive (90%) HER2 (ERBB2) IMMUNOHISTOCHEMISTRY ASSAY Interpretation: NEGATIVE for HER2 (ERBB2) Expression Score: 0 Underwent right breast lumpectomy via wire localization along with right axillary sentinel lymph node biopsy on 09/11/2020. Pathology: FROZEN SECTION DIAGNOSIS A. Right sentinel nodes, biopsy: Two out of two lymph nodes, negative for metastatic carcinoma. B. Additional right sentinel node biopsy: One lymph node, negative for metastatic carcinoma. MICROSCOPIC DIAGNOSIS A. Right sentinel lymph nodes, biopsy: Two out of two lymph nodes, negative for carcinoma. See comment. B. Additional right axillary sentinel lymph node biopsy: One out of one lymph node, negative for carcinoma. See comment. C. Right breast mass, lumpectomy: Invasive ductal carcinoma. See cancer checklist below. See comment. COMMENT INVASIVE BREAST CANCER SUMMARY: Procedure: Excision with wire guidance Specimen: Type: Partial breast Size: 6 x 6 x 4 cm Laterality: Right breast Invasive Tumor: Size: 1.2 x 1 x 1 cm Focality: Single focus of invasive carcinoma. Histologic type: Invasive ductal carcinoma. Histologic grade ([place] grade): Glandular/tubular differentiation score: 2 Nuclear pleomorphism score: 2 Mitotic count score: 2 Overall grade: 2 (score of 6) Lymphvascular invasion: Not identified Ductal Carcinoma In Situ: Estimated size (extent): <1 millimeter Number of blocks: 1 of 12 blocks Architectural pattern: Cribriform Nuclear grade: 1/3 Necrosis: Not present Lobular Carcinoma In Situ: Not present Tumor extension: Skin: Free of carcinoma Nipple: Not present Skeletal muscle: Not present Invasive Carcinoma Margin: Distance from closest margin: 10 millimeters from superior margin In Situ Carcinoma Margin: Distance from closest margin: 10 millimeters from superior margin Lymph Nodes: Number of sentinel lymph nodes examined: 3 Total number of lymph nodes examined: 3 No evidence of macrometastases, micrometastases or isolated tumor cells. See specimens ?A AND B? Microcalcifications: Focally present in non-neoplastic tissue. Treatment Effect: Unknown Additional Pathologic Findings: Focal atypical lobular hyperplasia, intraductal hyperplasia without atypia, fibrocystic change and changes of previous biopsy. Ancillary Studies: Previously performed [id number] ER: Positive (>95%) AK: Positive (90%) [id number]: Negative (0) Clinical History: Abnormal mammogram PATHOLOGIC STAGE: pT1c N0 Mx Oncotype Dx RS 11; 3% (3-4%; 95% CI). Radiation not recommended. Current therapy:Arimidex Began 09/2020 Pt. noted lump last week. See phone note. Here today with family member. Appetite: Good. Was dieting and now has cut out sugar from diet. Wt. down 10# since visit. Energy level: It's gotten worse. Naps almost daily. Denies fevers or recent illness. Resp:denies cough or sob Cardiac:denies chest pain/palpitations GI:denies abd pain, n/v, moving bowels regularly :denies dysuria/hematuria Extrem:chronic back/knee pain, denies new pain Endo:denies hot flashes Neuro:denies symptoms of neuropathy Skin:denies rashes/lesions Heme:denies bleeding The ROS is otherwise negative. Past medical history, appointments, medications, allergies reviewed. No changes. EXAM: BP 122/62 Pulse 63 Temp 37.1 ?C (98.7 ?F) (Temporal) Wt 84.4 kg (186 lb) BMI 35.12 kg/m? APPEARANCE Well appearing, alert, in no acute distress, well-hydrated, well nourished. HEART RRR with normal S1 and S2, no murmurs LUNG clear to auscultation, L medial clavicle mass 3x4cm, nt, no skin changes LYMPH NODES No cervical lymphadenopathy, No supraclavicular lymphadenopathy, and No axillary lymphadenopathy. (more content not included)...[facility]02-27-2023 History of Present illness Narrative* CynLeeannaMyrtle, RT(R) - 12/26/2022 9:30 AM EST Radiology Service Progress Note PATIENT NAME: Brittani Sage DATE OF SERVICE: December 26, 2022 TIME: 10:12 AM PATIENT IDENTITY VERIFICATION COMPLETED USING TWO (2) IDENTIFIERS: Name and Date of confirmedby patient verbally. FALL SCREENING: Has the patient had 2 falls in the last year or 1 fall with injury or currently using an Ambulatory Assistive Device (Walker, Cane, Wheelchair, Crutches, etc.)? No PATIENT GENDER DATA: Female. status: : No status: NO. PATIENT RELEVANT IMPLANT DATA REVIEWED: Not Applicable RADIOLOGY DEPARTMENT: General X-ray: Exam(s) Completed: Upper Extremity X- Ray(s): Clavicle, left PERIPHERAL IV DATA: Not applicable SIGNED BY: RT Amber(R) December 26, 2022 10:12 AM documented in this encounterAccess Hospital [place]02-24-2023 Miscellaneous Notes* Telephone Encounter - Pao Segal - 12/23/2022 2:47 PM EST Spoke with patient and scheduled for 12/26. Pao Segal * Telephone Encounter - Tammi Dodson APRN.CNP - 12/23/2022 12:54 PM EST Pt. needs OV next week. Thank you. Tammi Dodson APRN.MITZY * Telephone Encounter - Carly Manning RN - 12/23/2022 12:07 PM EST Call to patient, states she noticed a walnut size lump yesterday to left of her sternal notch, right above her collar bone. States it is hard like a bone and she can not move it around. She also states that she has been googling information and has some other concerns, that point toparathyroid cancer. my daughter has parathyroid cancer She states I'm tired all the time asked her when this started, past 4 years , states she is incontinent every day and has urgency, she wears pads and states that this is not new. States since her stroke that have her on CPAP and that is not helping and she is not sleeping well. She is not sure about her appetite, she has been on a diet and has lost 50lbs since April 2022. She swims for exercise on a regular basis. Denies fever/chills. Denies sore throat. States food sometimes gets caught in her throat. States Ialways have sinus drainage Denies pain except for normal aches that you get with age Denies other issues/concerns. She is aware that I will relay these symptoms to Tammi Dodson CNP and will call back with further instructions. Rena Manning RN * Telephone Encounter - Alejandra Missael - 12/23/2022 9:55 AM EST Pt found lump on neck that she is concerned about. It is hard but does not hurt. On Arimidex. documented in this encounterAccess [facility] [place]12-21-2022 Miscellaneous Notes* Telephone Encounter - Nathalie Harper LPN - 10/19/2022 9:34 AM EST Spoke with pt and scheduled to earlier time. Nathalie Harper LPN * Telephone Encounter - Nathalie Harper LPN - 10/12/2022 12:47 PM EST Left message for pt to contact office. Pt is scheduled for 03/09/23 at 1:40. Wanting to see if pt can come at 1:00. Please change appointment if pt agreeable. If pt can't change ok to leave as scheduled. Nathalie Harper LPN documented in this [facility]12-02-2022 Miscellaneous Notes* Telephone Encounter - Maria Dolores Mcmillan LPN - 09/30/2022 3:05 PM EST Received fax from [employer] stating the patient is refusing the PAP equipment being provided by [employer]. Spoke with patient and she had taken her older PAP machine in to the [facility] and had it supposedly programmed along with having O2 set up per Provider order. Faxed Judy at the [facility] to inquire as to whether patient had been to the Sleep Center and what had been set up for patient. Maria Dolores Mcmillan LPN documented in this encounterAccess [facility] [place]12-01-2022 History of Present illness Narrative* Tammi Dodson APRN.STEREOTYPE FINISHER - 09/29/2022 1:55 PM EST Chief Complaint Patient presents with: Established Patient HPI: Brittani Sage is a 77 year old female who presents here today for follow up breast cancer. Per Dr. Spencer's previous note: H/o kidney stones, obstructive sleep apnea, hypertension, mixed hyperlipidemia, mitral valve prolapse, GERD, diverticulosis and glaucoma. Mammograms (outside films) 08/18/2020 IMPRESSION: 7.2 mm x 5.6 mm nodule in the slightly upper lateral anterior aspect of the right breast as described. Correlation with ultrasound is recommended. US right breast (outside films) 08/24/2020 IMPRESSION: 7 mm x 6 mm x 6 mm hypoechoic irregular nodule at the 10 o''clock position breast at 2 cm from nipple. 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 Estrogen Receptor (ER) Positive (>95%) Progesterone Receptor (PgR) Positive (90%) HER2 (ERBB2) IMMUNOHISTOCHEMISTRY ASSAY Interpretation: NEGATIVE for HER2 (ERBB2) Expression Score: 0 Underwent right breast lumpectomy via wire localization along with right axillary sentinel lymph node biopsy on 09/11/2020. Pathology: FROZEN SECTION DIAGNOSIS A. Right sentinel nodes, biopsy: Two out of two lymph nodes, negative for metastatic carcinoma. B. Additional right sentinel node biopsy: One lymph node, negative for metastatic carcinoma. MICROSCOPIC DIAGNOSIS A. Right sentinel lymph nodes, biopsy: Two out of two lymph nodes, negative for carcinoma. See comment. B. Additional right axillary sentinel lymph node biopsy: One out of one lymph node, negative for carcinoma. See comment. C. Right breast mass, lumpectomy: Invasive ductal carcinoma. See cancer checklist below. See comment. COMMENT INVASIVE BREAST CANCER SUMMARY: Procedure: Excision with wire guidance Specimen: Type: Partial breast Size: 6 x 6 x 4 cm Laterality: Right breast Invasive Tumor: Size: 1.2 x 1 x 1 cm Focality: Single focus of invasive carcinoma. Histologic type: Invasive ductal carcinoma. Histologic grade ([place] grade): Glandular/tubular differentiation score: 2 Nuclear pleomorphism score: 2 Mitotic count score: 2 Overall grade: 2 (score of 6) Lymphvascular invasion: Not identified Ductal Carcinoma In Situ: Estimated size (extent): <1 millimeter Number of blocks: 1 of 12 blocks Architectural pattern: Cribriform Nuclear grade: 1/3 Necrosis: Not present Lobular Carcinoma In Situ: Not present Tumor extension: Skin: Free of carcinoma Nipple: Not present Skeletal muscle: Not present Invasive Carcinoma Margin: Distance from closest margin: 10 millimeters from superior margin In Situ Carcinoma Margin: Distance from closest margin: 10 millimeters from superior margin Lymph Nodes: Number of sentinel lymph nodes examined: 3 Total number of lymph nodes examined: 3 No evidence of macrometastases, micrometastases or isolated tumor cells. See specimens A & B Microcalcifications: Focally present in non-neoplastic tissue. Treatment Effect: Unknown Additional Pathologic Findings: Focal atypical lobular hyperplasia, intraductal hyperplasia withoutatypia, fibrocystic change and changes of previous biopsy. Ancillary Studies: Previously performed on same tumor ([facility] [id number]) ER: Positive (>95%) AK: Positive (90%) [id number]: Negative (0) Clinical History: Abnormal mammogram PATHOLOGIC STAGE: pT1c N0 Mx Oncotype Dx RS 11; 3% (3-4%; 95% CI). Radiation not recommended. Current therapy:Arimidex Began 09/2020 I had a stroke in April. I was flown to [facility]. R ischemic stroke in April. Mild residual weakness to RUE. Participated in 6 weeks of PT/OT. Appetite: Good. I've been on a diet. Wt. down 14# since 03/30/22 Energy level: Terrible. Denies fevers or recent illness. Resp:denies cough or sob Cardiac:denies chest pain/palpitations GI:denies abd pain, n/v, moving bowels regularly :denies dysuria/hematuria Extrem:chronic back pain, denies pain elsewhere Endo:denies hot flashes Neuro:denies symptoms of neuropathy Skin:denies rashes/lesions Heme:denies bleeding The ROS is otherwise negative. Past medical history, appointments, medications, allergies reviewed. No changes. EXAM: BP 105/55 Pulse 62 Temp 36.4 C (97.5 F) (Temporal) Ht 155 cm (5' 1.02 ) Wt 88.9 kg (196 lb) SpO2 96% BMI 37.00 kg/m APPEARANCE Well appearing, alert, in no acute distress, well-hydrated, well nourished. HEART RRR with normal S1 and S2, no murmurs LUNG clear to auscultation BREAST FEMALE no mass/nodule b/l, scar R lateral LYMPH NODES No cervical lymphadenopathy, No supraclavicular lymphadenopathy, and No axillary lymphadenopathy. ABDOMEN bowel sounds normoactive, soft, non-tender, non-distended EXTREMITIES No edema NEURO Awake, alert and oriented x 3, Normal gait, and No involuntary motions. SKIN Skin color, texture, turgor normal, no suspicious rashes or lesions RADIOLOGY: Mammogram 09/01/22: IMPRESSION: INCOMPLETE: NEEDS ADDITIONAL IMAGING EVALUATION There is no abnormality seen in the left breast to correspond with the palpable abnormality and pain indicated by triangular markers, however, ultrasound is recommended. L breast US 09/07/22: IMPRESSION: BENIGN FINDING Further management should be based on clinical assessment. There is no sonographic evidence of malignancy. Return to annual mammogram screening schedule is recommended. ASSESSMENT/PLAN: 1. 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 - No concerning findings on exam. - Tolerating arimidex well. - Reviewed mammogram/US with pt. - Continue arimidex (will discuss with Dr. Spencer). - Mammogram due 2022. - Follow up in 6 months. - Pt. aware to call office with any questions/concerns. The patient indicates understanding of these issues and agrees with the plan. All documentation from previous visit of 03/30/22-Dr. Spencer/myself was copied and pasted, documentation has been reviewed and edited as necessary for today's visit. Tammi Dodson APRN.STEREOTYPE FINISHER documented in this encounterAccess [facility] [place]11-28-2022 Miscellaneous Notes* Telephone Encounter - Huseyin Santiago Jr., MD - 09/26/2022 12:58 PM EST Previous message indicated pt was having another titration at [place], but pt in fact had titration at [facility] in July 2022. Those records were not available in [facility] for review. Now present. Needs to be placed on Auto-PAP 7-12 cmH2O with supplemental O2 at 1LPM. Order for PAP to be placed. Please make sure she also gets follow up with JAIME if not me before end of year if possible. Thank you Huseyin Santiago MD * Telephone Encounter - Huseyin Santiago Jr., MD - 09/26/2022 12:55 PM EST ----- Message from Maria Dolores Mcmillan LPN sent at 09/26/2022 9:22 AM EST ----- Regarding: Overnight PAP Titration PSG Dr. Santiago, Wanted to make sure you had found the Overnight Titration PSG in patient's chart from 08/23/2022? Completed 08/23/2022 at [facility] Sleep disorder lab. Thank you Maria Dolores Mcmillan LPN * Telephone Encounter - Aixa Rdz Pss - 09/15/2022 1:37 PM EST Spoke to patient who was busy and stated she will call to schedule. * Telephone Encounter - CRISTOFER Holt - 09/14/2022 2:20 PM EST Please see below and assist patient in scheduling. Thank you. CRISTOFER Holt * Telephone Encounter - Latonia Whitten LPN - 09/14/2022 10:49 AM EST Patient calling in to schedule an appt to review Sleep Study & MRI results w/Dr. Santiago. Please contact Patient to scheduled. Latonia Whitten LPN * Telephone Encounter - Maria Dolores Mcmillan LPN - 09/02/2022 4:15 PM EDT PSG Titration report printed off [employer] and will be forwarded to Provider. Maria Dolores Mcmillan LPN * Telephone Encounter - Maria Dolores Mcmillan LPN - 09/02/2022 3:14 PM EDT Patient updated on MRI results. Requesting the sleep study results from [facility]. Nursing contacted Judy and report to be faxed to office. Maria Dolores Mcmillan LPN * Telephone Encounter - Maria Dolores Mcmillan LPN - 09/02/2022 2:45 PM EDT ----- Message from Huseyin Santiago Jr., MD sent at 09/02/2022 10:43 AM EDT ----- Suspect findings on MRI are associated with stroke for which pt was admitted to [facility]. No other acute changes or strokes noted. Huseyin Santiago MD documented in this encounterAccess [facility] [place]11-23-2022 Miscellaneous Notes* Telephone Encounter - Huseyin Santiago Jr., MD - 09/21/2022 5:46 PM EST Per last office note pt was to have a pap titration and then follow up. Huseyin Santiago MD * Telephone Encounter - Maria Dolores Mcmillan LPN - 09/21/2022 1:30 PM EST Spoke with Ifeoma at [facility]. Patient called [facility] this am and told staff member that she took her PAP machine to her last OV and was told it is fine and she is not needing a new PAP machine or PAP supplies. Ifeoma from [facility] needing to know if patient does/doesn't need a new PAP and/or supplies. If not needing any PAP related supplies, please call [facility] and let them know. The order is good fora year, or be voided. Please advise. Maria Dolores Mcmillan LPN * Telephone Encounter - CRISTOFER Holt - 09/20/2022 11:09 AM EST TC to [facility] to see what questions they had regarding PAP order. It seems that PAP order was writtenby another provider on 07/20/22. Pts follow up with provider to discuss sleep study results is scheduled for 01/06/23. This staff was on placed on hold for over 10 minutes. Please try again later. CRISTOFER Holt * Telephone Encounter - Tami John - 09/16/2022 1:19 PM EST [facility] is calling requesting a call back as they have a few questions regarding script for CPAP. Please return call to them. documented in this encounterAccess Hospital [place]11-22-2022 Miscellaneous Notes* Telephone Encounter - Lili Cardenas MA - 09/20/2022 10:24 AM EST Patient has been identified by name and date of : Yes Requested Prescriptions Pending Prescriptions Disp Refills anastrozole (ARIMIDEX) 1 mg tablet [Pharmacy Med Name: ANASTROZOLE 1 MG TABLET] 90 tablet 3 Sig: take 1 tablet by mouth once daily RX INSTRUCTIONS: Patient aware RX will be sent to pharmacy. No need to notify patient. Lili Cardenas MA Sneha: 08/2022 Nov: 02/2023 Last refill: 09/2021 documented in this encounterAccess Hospital [place]11-18-2022 Miscellaneous Notes* Telephone Encounter - Maximilian Disla RN - 09/16/2022 1:17 PM EST Phoned patient and given provider's message below with verbalized understanding. * Telephone Encounter - Keo Angulo MD - 09/16/2022 12:33 PM EST Let patient know repeat calcium labs were normal. documented in this encounterAccess Hospital [place]11-11-2022 Miscellaneous Notes* Telephone Encounter - Lili Cardenas MA - 09/09/2022 1:52 PM EST Patient notified and voiced understanding. Lili Cardenas MA * Telephone Encounter - Keo Angulo MD - 09/09/2022 11:26 AM EST Let t know [facility]. The following approved medication requests have been transmitted electronically. Requested Prescriptions Signed Prescriptions Disp Refills nitrofurantoin monohydrate and macrocrystal (MACROBID) 100 mg capsule 14 capsule 0 Sig: Take 1 capsule by mouth twice daily with meals for 7 days. Authorizing Provider: KEO ANGULO MD * Telephone Encounter - Tami Polanco RN - 09/09/2022 11:17 AM EST Patient returned call and given provider's message below and patient verbalized understanding. Patient states she is having urinary urgency and continues urinary incontinence at times. Requesting [facility] in [place] if sending a script. Please call pt with any updates/orders. Thank you. * Telephone Encounter - Nathalie Harper LPN - 09/09/2022 9:24 AM EST Left message for pt to contact office. Nathalie Harper LPN * Telephone Encounter - Keo Angulo MD - 09/09/2022 8:34 AM EST Let patient know her A1c is slightly higher at 5.9% indicating increasing risk for diabetes. It was5.7%. advise continued work on reduced carbs, sugars and starches in diet. See if any symptoms of a UTI? If so will need treated. Her CBC, liver functions, kidney functions and Lipid panel were all ok. Her calcium is slightly elevated and want to repeat lab next week. Order placed. X-ray of her shoulder shows no acute issues. Ok to try the message therapy she discussed. If not getting better the next step would be to see PHYSICAL THERAPY. documented in this encounterAccess Hospital [place]11-10-2022 Instructions* Patient Instructions* Keo Angulo MD - 09/08/2022 2:07 PM EST Please bring in copies of your living will and durable power of pressure welder for health care. Check with your eye doctor to see if you are able to take a medication called Vesicare for over active bladder then let Dr. Angulo know. Consider getting the shingrix vaccine for the prevention of shingles from a local pharmacy documented in this encounterAccess Hospital [place]11-10-2022 History of Present illness Narrative* Keo Angulo MD - 09/08/2022 1:32 PM EST Medicare Visit Medical B eligibility date 02/28/08 Date of last exam 07/22/2021 PAST MEDICAL HISTORY PAST MEDICAL HISTORY Diagnosis Date Carcinoma of upper-outer quadrant of right female breast (HCC) 08/2020 Class 2 obesity due to excess calories in adult 07/09/2018 Diverticulosis of colon 07/09/2018 Elevated hemoglobin A1c 01/09/2018 Essential hypertension 08/02/2013 Family history of GA (myocardial infarction) 12/18/2018 Dad and Brother in their 60's Generalized arthritis 01/04/2018 GERD without esophagitis 12/18/2018 Glaucoma 01/07/2019 Lumbar spinal stenosis 02/2020 Malignant neoplasm of upper-outer quadrant of right breast in female, estrogen receptor positive (HCC) 09/30/2020 Mixed hyperlipidemia 08/02/2013 Morbid obesity (HCC) 07/09/2018 MVP (mitral valve prolapse) 08/02/2013 Obesity, Class III, BMI 40-49.9 (morbid obesity) ([facility]) 08/10/2020 CLAIRE (obstructive sleep apnea) Osteopenia, senile 07/31/2018 Primary insomnia 01/07/2019 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 Recurrent UTI 01/08/2015 Situational depression 02/04/2017 Trigger finger, left ring finger 07/09/2018 Urge incontinence 01/08/2015 PAST SURGICAL HISTORY PAST SURGICAL HISTORY Procedure Laterality Date BREAST LUMPECTOMY HX Right 09/11/2020 BX/REMV,LYMPH NODE,DEEP AXILL Right 08/2020 HYSTERECTOMY HX N/A 1991 LEXISCAN STRESS TEST 12/28/2018 negative MASTECTOMY, PARTIAL Right 08/2020 PAST SURGICAL HISTORY OF Right 2003 Partial Right Knee Replacement STRESS TEST 01/19/2018 normal TOTAL KNEE REPLACEMENT Left 2004 Patient has no known allergies. Medications reviewed: Yes FAMILY HISTORY FAMILY HISTORY Problem Relation Age of Onset Heart Mother CHF Hypertension Mother Diabetes Mother Coronary Artery Disease Father early 60's Stroke Father Alzheimer's Disease Sister Diabetes Sister other (lung cancer) Sister Colon Cancer Sister Diabetes Sister Heart Sister valve replacement Diabetes Sister Diabetes Brother other (lung cancer) Brother Coronary Artery Disease Brother 60's Asthma Son Hodgkin Lymphoma Daughter Thyroid Cancer Daughter Hypertension Daughter Breast Cancer Daughter Hypertension Daughter Obesity Daughter SOCIAL HISTORY: SOCIAL HISTORY Social History Tobacco Use Smoking status: Never Smoker Smokeless tobacco: Never Used Vaping Use Vaping Use: Never used Substance Use Topics Alcohol use: No Drug use: No Brittani gets minimal exercise though is going to a [facility] once a week now. . She watches her diet for sodium, low fat and low cholesterol most of the time. List of current specialists seen: Oncology: Dr. Spencer Neuro: [facility] Pain management: Dr. Leigh Cardio: Dr. Downing Sleep Med: Dr. Santiago End of Live Planning discussed including patients advanced directive wishes: Yes I am willing to follow Brittani's advanced directives. PHQ-2 / Depression screen Patient has know situation depression and zoloft dose will be adjusted. Functional Ability/Safety Screen 1. Was the patient's timed Up and Go test unsteady or longer than 30 seconds? No 2. Does the patient need help with the phone, transportation, shopping,preparing meals, housework, laundry, medications or managing money? No 3. Does your home have rugs in the hallway, lack of grab bars in the bathroom, lack of handrails onthe stairs or have poor lighting? No Hearing Evaluation: hard of hearing and wears hearing aids PHYSICAL EXAM BP 120/78 (BP Site: Left Arm, BP Position: Sitting, BP Cuff Size: Large Adult) Pulse (!) 52 Resp 16 Ht 154.9 cm (5' 1 ) Wt 88.5 kg (195 lb) BMI 36.84 kg/m Alert and oriented X 3: YES Body mass index is 36.48 kg/m . Visual acuity: sees Ophthalmology ASSESSMENT/PLAN: 77 year old female The following prevention plan was discussed during the office visit and provided to the patient: See below Chief Complaint Patient presents with: Medicare Wellness Exam HPI Brittani Sage is a 77 year old female who presents here today for extensive Visit. Patient with hx of elevated a1c, HTN, HLP, MVP, Gerd, CLAIRE (not on cpap), breast cancer, arthritis, depression, obesity and those as reviewed.. No specific concerns today . Saw neuro at [facility] in early Jun with no new issues. Patient had PHYSICAL THERAPY for left sided weakness. The left upper extremity seems back to base line to patient the LLE still weak. Is going to a health and wellness center at least once a week. Past medical history, appointments, medications, allergies reviewed. Previous Medical History PAST MEDICAL HISTORY Diagnosis Date Arthritis Carcinoma of upper-outer quadrant of right female breast ([facility]) 08/2020 Chronic pain of both knees 01/14/2021 Class 2 obesity due to excess calories in adult 07/09/2018 CVA (cerebral vascular accident) ([facility]) 05/23/2022 05/21/2022 DDD (degenerative disc disease), lumbar 07/22/2021 Diverticulosis of colon 07/09/2018 Elevated hemoglobin A1c 01/09/2018 Essential hypertension 08/02/2013 Family history of GA (myocardial infarction) 12/18/2018 Dad and Brother in their 60's Generalized arthritis 01/04/2018 GERD without esophagitis 12/18/2018 Glaucoma 01/07/2019 History of kidney stones 01/10/2022 Lumbar spinal stenosis 02/2020 Malignant neoplasm of upper-outer quadrant of right breast in female, estrogen receptor positive ([facility]) 09/30/2020 Mixed hyperlipidemia 08/02/2013 Morbid obesity ([facility]) 07/09/2018 MVP (mitral valve prolapse) 08/02/2013 Obesity, Class III, BMI 40-49.9 (morbid obesity) ([facility]) 08/10/2020 CLAIRE (obstructive sleep apnea) Osteopenia, senile 07/31/2018 Pain in metatarsus of both feet 01/14/2021 dorsaly Primary insomnia 01/07/2019 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 Recurrent UTI 01/08/2015 Situational depression 02/04/2017 Trigger finger, left ring finger 07/09/2018 Urge incontinence 01/08/2015 Previous Surgical History PAST SURGICAL HISTORY Procedure Laterality Date ABDOMINAL SURGERY HX ARTHRP KNE CONDYLE&PLATU MEDIAL&LAT COMPARTMENTS Left 2005 BREAST LUMPECTOMY HX Right 09/11/2020 BREAST SURGERY HX BX/EXC LYMPH NODE OPEN DEEP AXILLARY NODE Right 08/2020 CARPAL TUNNEL CEREBROVASCULAR THROMBECTOMY 05/21/2022 brain- CVA COLONOSCOPY COLONOSCOPY FLX DX W/COLLJ SPEC WHEN PFRMD 09/07/2021 CYSTOCELE REPAIR EXCISION GANGLION WRIST DORSAL/VOLAR PRIMARY EYE SURGERY HX HAND SURGERY HX thumgb surg HYSTERECTOMY HX N/A 1991 JOINT REPLACEMENT HX LEXISCAN STRESS TEST 12/28/2018 negative LITHOTRIPSY / 1 SIDE MASTECTOMY, PARTIAL Right 08/2020 PAST SURGICAL HISTORY OF Right 2004 Partial Right Knee Replacement REPAIR RECTOCELE SEPARATE PROCEDURE STRESS TEST 01/19/2018 normal VAGINAL HYSTERECTOMY Family History FAMILY HISTORY Problem Relation Age of Onset Heart Mother CHF Hypertension Mother Diabetes Mother Coronary Artery Disease Father early 60's Stroke Father Alzheimer's Disease Sister Diabetes Sister other (lung cancer) Sister Colon Cancer Sister Diabetes Sister Heart Sister valve replacement Diabetes Sister Diabetes Brother other (lung cancer) Brother Coronary Artery Disease Brother 60's Asthma Son Hodgkin Lymphoma Daughter Thyroid Cancer Daughter Hypertension Daughter Breast Cancer Daughter Hypertension Daughter Obesity Daughter Patient Allergies ALLERGIES No Known Allergies Current Medications Current Outpatient Medications on File Prior to Visit Medication Sig aspirin, enteric coated (ASPIRIN, ENTERIC COATED) 81 mg EC tablet Take 81 mg by mouth once daily. sertraline (ZOLOFT) 25 mg tablet Take 1 tablet by mouth once daily. losartan (COZAAR) 100 mg tablet Take 1 tablet by mouth once daily. simvastatin (ZOCOR) 20 mg tablet Take 1 tablet by mouth once daily. anastrozole (ARIMIDEX) 1 mg tablet Take 1 tablet by mouth once daily. ascorbic acid (VITAMIN C ORAL) Take 1 tablet by mouth once daily. ECHINACEA ORAL Take one tablet by mouth twice daily 3 months on & 3 months off. (Patient not taking: Reported on 08/05/2022) loratadine (CLARITIN) 10 mg tablet Take 10 mg by mouth once daily. timolol maleate (TIMOPTIC) 0.5 % drpd Use 1 Drop in both eyes twice daily. cholecalciferol (VITAMIN D3) 50 mcg (2,000 unit) tablet Take 2,000 Units by mouth twice daily. zinc once daily. lysine 500 mg tab Take 2 tablets by mouth once daily. vitamin b complex tab Take 1 tablet by mouth once daily. Calcium Carbonate 500 mg calcium (1,250 mg) capsule Take 1,250 mg by mouth twice daily with meals. Uonbtyovekxll-Eiyvstqe-Orftyr (CENTRUM SILVER) tab Take 1 tablet by mouth once daily. No current facility-administered medications on file prior to visit. Social History Social History Tobacco Use Smoking status: Never Smokeless tobacco: Never Vaping Use Vaping Use: Never used Substance Use Topics Alcohol use: No Drug use: No Review of Symptoms REVIEW OF SYSTEMS GENERAL: No unintentional weight loss, malaise or fevers HEENT: Negative for frequent or significant headaches, No changes in hearing or vision, no nose bleeds or other nasal problems NECK: Negative for lumps, goiter, pain and significant neck swelling RESPIRATORY: Negative for cough, hemoptysis, wheezing, COPD, dyspnea or shortness of breath CARDIOVASCULAR: Negative for chest pain, leg swelling, hypertension, CHF or palpitations GI: No nausea, vomiting, or diarrhea, No heartburn or reflux symptoms, and no blood : No history of dysuria,or blood. Has had increased urgency and incontinence. MUSCULOSKELETAL: has some pain in the right shoulder. Has pain with lifting her right arm above herhead. SKIN: Negative for lesions, rash, and itching PSYCH: over all has been better with being on the zoloft but sometimes would like to have the dose increased. HEMATOLOGY/LYMPHOLOGY: Negative for prolonged bleeding, bruising easily or swollen nodes ENDOCRINE: Negative for cold or heat intolerance, polyuria, polydipsia and goiter NEURO: No history of headaches, syncope, paralysis, seizures or tremors EXAM: BP 120/78 (BP Site: Left Arm, BP Position: Sitting, BP Cuff Size: Large Adult) Pulse (!) 52 Resp 16 Ht 154.9 cm (5' 1 ) Wt 88.5 kg (195 lb) BMI 36.84 kg/m Last 15 Encounter Wt Readings: Date: Wt: 09/08/2022 88.5 kg (195 lb) 08/05/2022 91.6 kg (202 lb) 06/09/2022 98.4 kg (217 lb) 06/01/2022 99.8 kg (220 lb) 03/30/2022 95.3 kg (210 lb) 02/09/2022 92.5 kg (204 lb) 01/10/2022 92.5 kg (204 lb) 09/29/2021 89.8 kg (198 lb) 07/29/2021 90.4 kg (199 lb 3.2 oz) 07/22/2021 90.3 kg (199 lb) 05/27/2021 90.9 kg (200 lb 8 oz) 02/11/2021 96.4 kg (212 lb 8 oz) 01/14/2021 96.6 kg (213 lb) 11/13/2020 100.2 kg (221 lb) 10/16/2020 101.6 kg (224 lb) General Appearance: Well appearing, alert, in no acute distress, well-hydrated, well nourished. andObese. Skin: Skin color, texture, turgor normal, no suspicious rashes or lesions. Head: Normocephalic, no masses, lesions, tenderness or abnormalities. Eyes: Anicteric sclera. Pupils are equally round and reactive to light. Extraocular movements are intact. . Ears: External ears, TM's normal, canals clear. Neck: Supple, no adenopathy; thyroid symmetric, normal size, no bruits. Lungs: Lungs clear to auscultation. No wheezing, rhonchi, rales.. Heart: RRR without murmur, gallop, or rubs. No ectopy. Abdomen: Normal abdominal exam, Abdomen soft, non-tender. Bowel sounds normal. No masses, organomegaly. Extremities: No deformities, edema, skin discoloration, Good capillary refill. . Musculoskeletal: Muscular strength intact, No joint swelling, deformity, or tenderness. Peripheral Pulses: Normal. Neurologic: Gait normal. Reflexes normal and symmetric. Sensation to light touch and crainal nerves2-12 intact.. Health Maintenance List DTAP,TDAP,TD(2 - Tdap) due on 08/02/2010 SHINGRIX VACCINE(2 of 3) due on 11/07/2011 ADVANCE DIRECTIVE DISCUSSION Never done COVID-19 VACCINE(3 - Booster for Marcela series) due on 05/25/2022 INFLUENZA(1) due on 06/30/2022 ANNUAL PCP TEAM CHRONIC DISEASE VISIT due on 06/09/2023 BP CONTROLLED (<130/80) due on 08/05/2023 COLORECTAL CANCER SCREENING due on 09/07/2024 DIABETES SCREEN due on 05/22/2025 BONE DENSITY Completed PNEUMOCOCCAL: 65+ Completed Data reviewed Component Latest Ref Rng & Units 02/09/2022 Glucose 74 - 99 mg/dL 99 BUN 7 - 21 mg/dL 24 (H) Creatinine 0.58 - 0.96 mg/dL 0.95 Sodium 136 - 144 mmol/L 140 Potassium 3.7 - 5.1 mmol/L 4.5 Chloride 97 - 105 mmol/L 102 CO2 22 - 30 mmol/L 28 Anion Gap 9 - 18 mmol/L 10 Calcium 8.5 - 10.2 mg/dL 10.2 eGFR >=60 mL/min/1.73m 61 Total Cholesterol, Nonfasting <200 mg/dL 166 Triglycerides, Nonfasting <150 mg/dL 92 HDL Cholesterol, Nonfasting >39 mg/dL 63 LDL Cholesterol, Nonfasting <100 mg/dL 85 Non HDL Cholesterol, Nonfasting <130 mg/dL 103 VLDL Cholesterol, Nonfasting <30 mg/dL 18 Total Chol/HDL Ratio, Nonfasting <5.10 mg/dL 2.63 LDL/HDL Ratio, Nonfasting <2.54 mg/dL 1.35 Hemoglobin A1C 4.3 - 5.6 % 5.7 (H) Estimated Average Glucose mg/dL 117 A/P ASSESSMENT/PLAN: 1. Medicare annual wellness visit, subsequent - ICD9: V70.0, ICD10: Z00.00 (primary diagnosis) - Counseled on healthy diet and regular exercise - Calcium intake with supplements or by diet of 1000 mg/day for under 50, 1200- 1500 mg/day for 50+ - Patient was counseled [id number] by myself (the billing provider) for the following immunizations and vaccine components, including side effects: COVID-19 and Influenza. Patient consents for immunization and understands risks and benefits. A VIS sheet on each immunization was given to the patient. - Follow up for annual exam in one year 2. Essential hypertension - ICD9: 401.9, ICD10: I10 - good control - Continue current medication(s) - Recommended regular aerobic exercise. - Recommend home blood pressure monitoring, to bring results in on next visit - Goal of BP <130/80 - SIMVASTATIN 20 MG TABLET Check - COMP METABOLIC PANEL - URINALYSIS, WITH MICROSCOPIC - LIPID PANEL, NONFASTING 3. Mixed hyperlipidemia - ICD9: 272.2, ICD10: E78.2 - to be determined upon return of lab results - Encouraged following a low fat, low cholesterol diet. - Discussed the benefits of regular aerobic exercise and weight loss. - Encouraged following a low carbohydrate, healthy oil intake diet. - Continue current therapy. Check - COMP METABOLIC PANEL - URINALYSIS, WITH MICROSCOPIC - LIPID PANEL, NONFASTING 4. Elevated hemoglobin A1c - ICD9: 790.29, ICD10: R73.09 Check - HGB A1C 5. Cerebrovascular accident (CVA) due to occlusion of cerebral artery (HCC) - ICD9: 434.91, ICD10: I63.50 - clinically stable with mild weakness in the left LE. 6. GERD without esophagitis - ICD9: 530.81, ICD10: K21.9 - controlled with diet. 7. Situational depression - ICD9: 309.0, ICD10: F43.21 - will increase Zoloft 50 mg a day. 8. Primary insomnia - ICD9: 307.42, ICD10: F51.01 - clinically stable 9. CLAIRE (obstructive sleep apnea) - ICD9: 327.23, ICD10: G47.33 - patient working on getting back on CPAP 10. Obesity, Class II, BMI 35-39.9 - ICD9: 278.00, ICD10: E66.9 Weight decreasing - Behavioral intervention 11. Malignant neoplasm of upper-outer quadrant of right breast in female, estrogen receptor positive (HCC) - ICD9: 174.4, V86.0, ICD10: C50.411, Z17.0 - seeing Heme/Onc 12. Spinal stenosis of lumbar region, unspecified whether neurogenic claudication present - ICD9: 724.02, ICD10: M48.061 - seeing Pain management prn 13. Acute pain of right shoulder - ICD9: 719.41, ICD10: M25.511 Check - XR SHOULDER GENERAL 3V OR MORE AP/TRUE AP/OTHER RIGHT 14. Urge incontinence - ICD9: 788.31, ICD10: N39.41 - patient to check with eye provider to see if she can take Vesicare. 15. Medication management - ICD9: V58.69, ICD10: Z79.899 Check - CBC + DIFF 16. Encounter for immunization - ICD9: V03.89, ICD10: Z23 - INFLUENZA SEASONAL QUADRIVALENT HIGH DOSE AGE 65+: given - [employer] COVID-19 BIVALENT BOOSTER VACCINE, AGE 12+ YR: given 17. Living will in place - ICD9: V49.89, ICD10: Z78.9 - patient to bring in copies. 18. Advance directive discussed with patient - ICD9: V65.49, ICD10: Z71.89 - as per #18 Requested Prescriptions Signed Prescriptions Disp Refills sertraline (ZOLOFT) 50 mg tablet 90 tablet 1 Sig: Take 1 tablet by mouth once daily. losartan (COZAAR) 100 mg tablet 90 tablet 1 Sig: Take 1 tablet by mouth once daily. simvastatin (ZOCOR) 20 mg tablet 90 tablet 1 Sig: Take 1 tablet by mouth once daily. F/u 6 months routine I spent a total of 40 minutes on the date of the service which included preparing to see the patient, [id number] patient care, completing clinical documentation, performing a medically appropriate examination, counseling and educating the patient/family/caregiver and ordering medications, tests, or procedures. Keo Angulo MD documented in this encounterAccess Hospital [place]11-10-2022 Miscellaneous Notes* Telephone Encounter - Norma Mcmillan LPN - 09/08/2022 11:58 AM EST Patient notified. Norma Mcmillan LPN * Telephone Encounter - Tammi Dodson APRN.CNP - 09/08/2022 11:41 AM EST Please inform pt. no concerning findings on L breast US. Follow up as scheduled. Thank you. Tammi Dodson APRN.MITZY documented in this encounterAccess Hospital [place]11-09-2022 History of Present illness Narrative* Casandra Knight RDMS - 09/07/2022 3:30 PM EST Radiology Service Progress Note PATIENT NAME: Brittani Sage DATE OF SERVICE: September 07, 2022 TIME: 3:47 PM PATIENT IDENTITY VERIFICATION COMPLETED USING TWO (2) IDENTIFIERS: Name and Date of confirmedby patient verbally. FALL SCREENING: Has the patient had 2 falls in the last year or 1 fall with injury or currently using an Ambulatory Assistive Device (Walker, Cane, Wheelchair, Crutches, etc.)? No PATIENT GENDER DATA: Female. status: : No status: NO. PATIENT RELEVANT IMPLANT DATA REVIEWED: Not Applicable RADIOLOGY DEPARTMENT: Ultrasound PERIPHERAL IV DATA: Not applicable SIGNED BY: Casandra Knight RDMS RVT September 07, 2022 3:47 PM documented in this encounterAccess [facility]11-07-2022 Miscellaneous Notes* Telephone Encounter - Paola Narayan Pss - 09/05/2022 3:18 PM EST I called and let Brittani know the below information and then transferred her to the breast center to get scheduled. Paola Narayan Pss * Telephone Encounter - Tammi Dodson APRN.CNP - 09/02/2022 11:36 AM EDT Please inform pt. that the radiologist would like additional imaging. Please schedule L breast US per radiologists recommendations. Thank you. Tammi Dodson APRN.STEREOTYPE FINISHER documented in this encounterAccess Hospital Dayton11-04-2022 Miscellaneous Notes* Telephone Encounter - Maria Dolores Mcmillan LPN - 09/02/2022 5:06 PM EDT Sleep study being forwarded to provider to review. Maria Dolores Mcmillan LPN * Telephone Encounter - Alejandra Canas - 08/31/2022 4:14 PM EDT Pt called to ask about getting the settings on her CPAP. She states she was told to use it again asthat may have been the cause for her stroke. She states she had a sleep test at [facility] in July and also one last week in [place]. No appts available until next year. Does she need an appt to get this or can it be with [facility] [facility]. Please advise her what is best. documented in this encounterAccess Hospital Dayton11-04-2022 Miscellaneous Notes* Letter - Mammography Coordinator - 09/02/2022 8:26 AM EDT September 02, 2022 PID: [id number] Brittani Sage [address] [place] [address] Dear Ms. Sage, Your recent breast imaging exam on 09/01/2022 showed a possible finding that requires additional imaging studies for a complete evaluation. Most such findings are probably benign (not cancer). If you have a healthcare provider who ordered/prescribed your screening mammogram: Please call [phone] or [phone]: [phone] to schedule an appointment for your additional imaging (if youhave not already done so). If you DO NOT have a healthcare provider (ie you did not have an order/prescription for your screening mammogram): Please call to schedule an appointment for your additional imaging (if you have not already done so). You must have an order/prescription from your physician when calling to schedule your appointment. If your order/prescription is not electronic, you must bring the hard copy with you on the day of your exam to avoid delays. Your imaging studies and reports are kept on file at [facility] as part of your permanent medical record, and are available for your continuing care. Thank you for allowing us to help in meeting your health care needs. Sincerely, Dr. Flynn Interpreting Radiologist [facility] (Additional imaging) documented in this encounterAccess Hospital Dayton11-03-2022 History of Present illness Narrative* Sada Lee, RT(R) - 09/01/2022 1:30 PM EDT Radiology Service Progress Note PATIENT NAME: Brittani Sage DATE OF SERVICE: September 01, 2022 TIME: 1:38 PM PATIENT IDENTITY VERIFICATION COMPLETED USING TWO (2) IDENTIFIERS: Name and Date of confirmedby patient verbally. FALL SCREENING: Has the patient had 2 falls in the last year or 1 fall with injury or currently using an Ambulatory Assistive Device (Walker, Cane, Wheelchair, Crutches, etc.)? No PATIENT GENDER DATA: Female. status: : No status: NO. PATIENT RELEVANT IMPLANT DATA REVIEWED: Not Applicable RADIOLOGY DEPARTMENT: Mammography PERIPHERAL IV DATA: Not applicable SIGNED BY: RT Dior(R) September 01, 2022 1:38 PM documented in this encounterAccess Hospital Dayton11-02-2022 History of Present illness Narrative* Angeles Mathews RT(R) - 08/31/2022 8:00 AM EDT Radiology Service Progress Note PATIENT NAME: Brittani Sage DATE OF SERVICE: August 31, 2022 TIME: 7:58 AM PATIENT IDENTITY VERIFICATION COMPLETED USING TWO (2) IDENTIFIERS: Name and Date of confirmedby patient verbally. FALL SCREENING: Has the patient had 2 falls in the last year or 1 fall with injury or currently using an Ambulatory Assistive Device (Walker, Cane, Wheelchair, Crutches, etc.)? No PATIENT GENDER DATA: Female. status: : No status: NO. PATIENT RELEVANT IMPLANT DATA REVIEWED: Yes RADIOLOGY DEPARTMENT: MR; Exam(s) Completed: Head: Routine Brain [place] of [place] MRA PERIPHERAL IV DATA: Not applicable SIGNED BY: RT Stephanie(R) August 31, 2022 7:58 AM documented in this encounterAccess Hospital [facility]10-13-2022 Miscellaneous Notes* Telephone Encounter - Pao Christianson RN - 08/11/2022 3:01 PM EDT Visit notes faxed per request received via fax. AMOS Olsen, SHEN August 11, 2022 3:01 PM * Telephone Encounter - Nikki Ashley - 08/11/2022 2:53 PM EDT Viri Ott called regarding faxed office notes received from office visit on 06/09/2022. Stated they only received 4 pages, and asked if you can please fax to them again at [phone] attn either Blair or Sara. TY documented in this encounterAccess Hospital Dayton10-10-2022 Miscellaneous Notes* Telephone Encounter - Delmy Juárez LPN - 08/08/2022 10:53 AM EDT Order for PAP Titration has been faxed to [facility] at this time. documented in this encounterAccess Hospital [facility]10-07-2022 History of Present illness Narrative* Huseyin Santiago Jr., MD - 08/05/2022 8:22 AM EDT NEW PATIENT (CONSULT) HISTORY AND PHYSICAL EXAM PRIMARY CARE PHYSICIAN: Keo Angulo MD REASON FOR CONSULT: Stroke REFERRING PHYSICIAN: Self CHIEF COMPLAINT: Stroke Consultation requested by Self for an opinion regarding chief complaint of Patient presents with: New Patient: CVA 05/21/2022 and my final recommendations will be communicated back to the requesting physician by way of sharedmedical record or letter via US mail. HISTORY OF PRESENT ILLNESS: Brittani Sage is a 77 year old female, BMI 37.55 kg/m2 with a PMH significant for stroke for which she was evaluated at [facility] on 05/21/22. Per available records: As you well know Brittani Sage is a 77 y.o. 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 Last known well was approximately 1330 on 05/21/22. Seen on telestroke, NIHSS was 2, CT head showed hyperdense right MCA, she was given iv tPA at 1428 and was transferred to [facility]. NIHSS on arrival was 4. CTA brain/neck showed R M1 occlusion. She was initially enrolled in the ENDOLOW trial and randomized to medical arm. She was noted to have worsening of her neurological exam at around 1800 on 05/21, her NIHSS increased by approximately 11 points at that time. She was emergently taken to OR for RM1 thrombectomy with TICI 3 revascularization. Her work up included: CTH stroke: No acute hemorrhage or mass effect. CTA brain/neck: Right M1 segment occlusion with distal reconstitution. The other intracranial vessels are patent. No significant ICA stenosis CTH 24hr post tPA: No hemorrhage MRI brain: cancelled, R MCA stroke with R M1 occlusion TTE: EF 60-65%, no hemodynamically significant valve disease, normal atrial septum ECG: NSR LDL 63, A1c 5.8. She was evaluated by OT, PT and speech therapy. She is being discharged home with outpatient therapy in a stable condition. This discharge plan has been explained to the patient. Diagnosis: Acute R MCA stroke, R M1 occlusion, s/p tPA and mechanical thrombectomy with TICI 3 revascularization Mechanism: cryptogenic Management plan at discharge: -ASA 81 mg daily for secondary stroke risk reduction -Continue simvastatin 20 mg daily for secondary stroke risk reduction -Continue losartan for HTN -30 day cardiac event monitor at discharge -Outpatient THEA ordered for patient to complete at local facility per request. Consider loop recorder placement for residential cardiac monitoring in setting of cryptogenic stroke if atrial fibrillation not detected on 30 day cardiac event monitor. THEA was completed at [facility] on 07/26/22. Study per report showed an EF of 65% with no reported evidenceof thrombus, shunt or other embolic source. Pt states she had followed up with [facility] on 06/30/22 and told to live a best life . She is on ASA 81mgdaily and statin. Pt tells me that they did perform an event monitor at [facility] and was told no afib. Pt never received Plavix per records and per pt and her daughter who accompanies her. Pt deficits on L side persist - weakness. Dysarthria resolved shortly after procedure. States she is at a wellness center using machines and the pool regularly. Pt with known CLAIRE as well and had 2 PAPs in the past but hated them . States she does not feel like the PAP mask. Updated PSG on 07/11/22 showed AHI to be 46 with patient never being supine. Pt spent49.6% of study with an O2 saturation <90%. REVIEW OF SYSTEMS GENERAL:No weight loss, malaise or fevers. HEENT:Negative for frequent or significant headaches, No changes in hearing or vision, no nose bleeds or other nasal problems NECK:Negative for lumps, goiter, pain and significant neck swelling RESPIRATORY: Negative for cough, wheezing or shortness of breath. CARDIOVASCULAR: Negative for chest pain, leg swelling or palpitations. GASTROINTESTINAL: Negative for abdominal discomfort, blood in stools or black stools or change in bowel habits GENITOURINARY: No history of dysuria, frequency or incontinence MUSCULOSKELETAL: Negative for joint pain or swelling, back pain or muscle pain. NEUROLOGIC:Negative for focal numbness or weakness, headaches and dizziness or syncope, vision changes, speech/language changes, changes in gait or falls -- besides those complaints as above in HPI. SKIN:Negative for lesions, rash, and itching. PSYCHIATRIC: Negative for sleep disturbance, mood disorder and recent psychosocial stressors. HEMATOLOGIC/LYMPHATIC/IMMUNOLOGIC:Negative for prolonged bleeding, bruising easily or swollen nodes. ENDOCRINE: Negative for cold or heat intolerance, polyuria, polydipsia and goiter. The remainder of the ROS was reviewed and is negative. LAB/IMAGING: Reviewed and include: WBC (k/uL) Date Value 07/22/2021 6.99 RBC (m/uL) Date Value 07/22/2021 4.71 Hemoglobin (g/dL) Date Value 07/22/2021 13.6 Hematocrit (%) Date Value 07/22/2021 43.6 MCV (fL) Date Value 07/22/2021 92.6 MCH (pG) Date Value 07/22/2021 28.9 MCHC (g/dL) Date Value 07/22/2021 31.2 RDW-CV (%) Date Value 07/22/2021 13.4 Platelet Count (k/uL) Date Value 07/22/2021 239 MPV (fL) Date Value 07/22/2021 11.1 Glucose (mg/dL) Date Value 02/09/2022 99 BUN (mg/dL) Date Value 02/09/2022 24 (H) Creatinine (mg/dL) Date Value 02/09/2022 0.95 Sodium (mmol/L) Date Value 02/09/2022 140 Potassium (mmol/L) Date Value 02/09/2022 4.5 Chloride (mmol/L) Date Value 02/09/2022 102 CO2 (mmol/L) Date Value 02/09/2022 28 Protein, Total (g/dL) Date Value 07/22/2021 7.1 Albumin (g/dL) Date Value 07/22/2021 4.2 Calcium, Total (mg/dL) Date Value 02/09/2022 10.2 Alkaline Phosphatase (U/L) Date Value 07/22/2021 97 Bilirubin, Total (mg/dL) Date Value 07/22/2021 0.7 AST (U/L) Date Value 07/22/2021 29 ALT (U/L) Date Value 07/22/2021 25 MEDICATIONS: aspirin, enteric coated (ASPIRIN, ENTERIC COATED) 81 mg EC tablet Take 81 mg by mouth once daily. sertraline (ZOLOFT) 25 mg tablet Take 1 tablet by mouth once daily. losartan (COZAAR) 100 mg tablet Take 1 tablet by mouth once daily. simvastatin (ZOCOR) 20 mg tablet Take 1 tablet by mouth once daily. anastrozole (ARIMIDEX) 1 mg tablet Take 1 tablet by mouth once daily. ascorbic acid (VITAMIN C ORAL) Take 1 tablet by mouth once daily. loratadine (CLARITIN) 10 mg tablet Take 10 mg by mouth once daily. timolol maleate (TIMOPTIC) 0.5 % drpd Use 1 Drop in both eyes twice daily. cholecalciferol (VITAMIN D3) 50 mcg (2,000 unit) tablet Take 2,000 Units by mouth twice daily. zinc once daily. lysine 500 mg tab Take 2 tablets by mouth once daily. vitamin b complex tab Take 1 tablet by mouth once daily. Calcium Carbonate 500 mg calcium (1,250 mg) capsule Take 1,250 mg by mouth twice daily with meals. Vhlkdhuydygpw-Bgzsumft-Qzvnmw (CENTRUM SILVER) tab Take 1 tablet by mouth once daily. ECHINACEA ORAL Take one tablet by mouth twice daily 3 months on & 3 months off. (Patient not taking: Reported on 08/05/2022) HISTORIES PAST MEDICAL HISTORY Diagnosis Date Arthritis Carcinoma of upper-outer quadrant of right female breast (HCC) 08/2020 Chronic pain of both knees 01/14/2021 Class 2 obesity due to excess calories in adult 07/09/2018 CVA (cerebral vascular accident) (HCC) 05/23/2022 05/21/2022 DDD (degenerative disc disease), lumbar 07/22/2021 Diverticulosis of colon 07/09/2018 Elevated hemoglobin A1c 01/09/2018 Essential hypertension 08/02/2013 Family history of GA (myocardial infarction) 12/18/2018 Dad and Brother in their 60's Generalized arthritis 01/04/2018 GERD without esophagitis 12/18/2018 Glaucoma 01/07/2019 History of kidney stones 01/10/2022 Lumbar spinal stenosis 02/2020 Malignant neoplasm of upper-outer quadrant of right breast in female, estrogen receptor positive ([facility]) 09/30/2020 Mixed hyperlipidemia 08/02/2013 Morbid obesity ([facility]) 07/09/2018 MVP (mitral valve prolapse) 08/02/2013 Obesity, Class III, BMI 40-49.9 (morbid obesity) ([facility]) 08/10/2020 CLAIRE (obstructive sleep apnea) Osteopenia, senile 07/31/2018 Pain in metatarsus of both feet 01/14/2021 dorsaly Primary insomnia 01/07/2019 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 Recurrent UTI 01/08/2015 Situational depression 02/04/2017 Trigger finger, left ring finger 07/09/2018 Urge incontinence 01/08/2015 FAMILY HISTORY Problem Relation Age of Onset Heart Mother CHF Hypertension Mother Diabetes Mother Coronary Artery Disease Father early 60's Stroke Father Alzheimer's Disease Sister Diabetes Sister other (lung cancer) Sister Colon Cancer Sister Diabetes Sister Heart Sister valve replacement Diabetes Sister Diabetes Brother other (lung cancer) Brother Coronary Artery Disease Brother 60's Asthma Son Hodgkin Lymphoma Daughter Thyroid Cancer Daughter Hypertension Daughter Breast Cancer Daughter Hypertension Daughter Obesity Daughter SOCIAL HISTORY Social History Tobacco Use Smoking status: Never Smokeless tobacco: Never Vaping Use Vaping Use: Never used Substance Use Topics Alcohol use: No Drug use: No PHYSICAL EXAMINATION BP 103/60 Pulse 73 Resp 20 Wt 91.6 kg (202 lb) SpO2 96% BMI 37.55 kg/m GENERAL EXAM: General appearance: NAD, pleasant. HEENT: NC/AT, nasal congestion absent, no oral lesions, membranes moist. NECK: No masses, supple. Lungs: CTA bilaterally. CV: RRR nl S1, S2. No carotid bruits. Extr: No cyanosis, clubbing or edema. Skin: Cool to touch. NEUROLOGICAL EXAM: General: Awake, alert, oriented x3 (person,place,time), speech fluent, no dysarthria; comprehension, naming, repetition intact. CN: PERRL, fundi withno evidence of papilledema, EOMI and without nystagmus, VFF to confrontation, facial sensation and strength are normal and symmetric, hearing is intact to finger rub bilaterally,palate and tongue movements are intact and symmetric. SCM and trapezius strength normal. Motor: Normal tone, bulk and strength (5/5) bilaterally (throughout extremities x4). Minimal pro drift on L. Coordination: FNF, HTS intact. MARCI mildly diminished in LUE with repetition. No tremors. Sensation: Light touch and vibration intact throughout. No evidence of neglect. Gait: Stable with normal stride and arm swing. Assessment and Plan: ASSESSMENT/PLAN: 1. Cerebrovascular accident (CVA) due to occlusion of cerebral artery (HCC) - ICD9: 434.91, ICD10: I63.50 Patient with RMCA stroke secondary to M1 occlusion of uncertain etiology. Patient was evaluated andtreated at [facility], and all records are not available for review. As noted, reports indicate pt had IV TPA as well as interventional thrombectomy. Extensive workup for etiology of clot unremarkable including THEA and cardiac monitoring. Review of records suggests MRI brain never completed and uncertain why as evidence of additional strokes (multiple vascular territories) might further suggest central embolic source and need for loop recorder. Patient was not treated with DAPT and at this point not sure if any benefit and thus, will continue ASA daily. Continue statin daily. BP goal <140/90. Glucose goal <140. Pt agrees with MRI brain and order will be placed for reasons above. Also will get MRA to reevaluate patency of intracrnaial circulation. Patient was on Armidex and will ask heme/onc Dr. Noelle Spencer opinion regarding clot risk while on medication. Pt and family educated on stroke risks and precautions. Encouraged exercise. Encouraged treatment of CLAIRE. 2. CLAIRE (obstructive sleep apnea) - ICD9: 327.23, ICD10: G47.33 Reviewed PSG results with pt showing severe CLAIRE likely underestimated given lack of supine positioning during the study. As hypoxia was present during the study with a mean O2 sat of 89%, feel PAP titration appropriate to determine PAP setting needed to normalized AHI. Titration ordered and pt willfollow up post titration. Discussed with patient: the physiology of OSAS, medical conditions associated with OSAS (DM, HTN, CAD, Depression, Stroke, Headache...) and treatment options (UPPP, Dental appliances, CPAP...). Advised patient to avoid activities that could harm self or others when tired/sleepy, including driving and/or operating heavy machinery. Encouraged weight loss, and continued comp liance with other medications. Huseyin Santiago MD I spent a total of 65 minutes on the date of the service which included preparing to see the patient, [id number] patient care, completing clinical documentation, obtaining and/or reviewing separately obtained history, performing a medically appropriate examination, counseling and educating the pat ient/family/caregiver, ordering medications, tests, or procedures, and communicating results to thepatient/family/caregiver. documented in this encounterAccess [facility]10-04-2022 Miscellaneous Notes* Telephone Encounter - Estella Wayne - 08/02/2022 10:24 AM EDT Called PT [facility] to call back and schedule. Estella [facility] * Telephone Encounter - Lili Cardenas MA - 07/28/2022 4:50 PM EDT Faxed response to [email or web address] and Please scheduled patient for sleep med. Lili Cardenas MA * Telephone Encounter - Keo Angulo MD - 07/28/2022 4:19 PM EDT Patient only had the diagnostic study so no pressure settings available. She will need to either have a CPAP titration study or see sleep med. Consult placed for her to see sleep med. * Telephone Encounter - Lili Cardenas MA - 07/28/2022 3:52 PM EDT Received fax from [facility] requesting baseline sleep study, progress notes, and pressure setting written on the script, patient phone number, insurance. We do not have pressure settings. Please review and advise. Lili Cardenas MA documented in this encounterAccess Hospital [facility]09-21-2022 Miscellaneous Notes* Telephone Encounter - Massiel Soliz APRN.CNP - 07/20/2022 11:02 AM EDT Rx for CPAP has been printed and signed. Will fax over [facility] in [place]. Massiel Soliz APRN.MITZY * Telephone Encounter - Neha Baer LPN - 07/20/2022 8:57 AM EDT Patient notified of results, verbalizes understanding of instructions. Pt prefers to have you send Rx to [facility]. Neha Baer LPN * Telephone Encounter - Massiel Soliz APRN.CNP - 07/20/2022 8:12 AM EDT Can you please call the patient and let her know that I reviewed her sleep study results. Sleep study did show severe sleep apnea. I would highly recommend that she consider using a CPAP at night to help with oxygenation. Can you please verify with the patient if she currently has a machine? If not I can send in a prescription to a medical supply company she prefers. Or she may follow-up with sleep medicine in [place] for further consultation. Please let me know what she prefers. Thank you. Massiel Soliz APRN.CNP documented in this encounterAccess [facility]08-29-2022 Miscellaneous Notes* Telephone Encounter - Regina Nguyen PA-C - 06/27/2022 11:39 AM EDT Noted. * Telephone Encounter - Samina Keita Ma - 06/27/2022 9:46 AM EDT See update from pt. Samina Keita Ma * Telephone Encounter - Meryl Muhammad - 06/27/2022 9:37 AM EDT Brittani Sage is calling Regina Nguyen PA-C today with an updated on the Zoloft medication. The medication is working for her, no adjustments needed. She is going to contact pharmacy for refill. documented in this encounterAccess Hospital [facility]08-11-2022 Instructions* Patient Instructions* Massiel Soliz APRN.CNP - 06/09/2022 7:21 AM EDT 1.) Recommend taking Zoloft 25 mg at bedtime to help with day time sleepiness. 2.) Continue to complete PT and OT as ordered. 3.) Keep scheduled appointment with Neurology. 4.) You may follow up in 3-4 weeks if needed for medication check, this can be a phone visit. 5.) Schedule appointment for Dr. Santiago in Neurology and sleep study. documented in this encounterAccess Hospital [facility]08-11-2022 History of Present illness Narrative* Massiel Soliz APRN.CNP - 06/09/2022 7:00 AM EDT This is a 77 year old female who presents today with: Patient presents with: Acute Visit: CVA concerns HISTORY OF PRESENT ILLNESS: Brittani Sage is a 77 year old female. Patient presents with: Acute Visit: CVA concerns Patient of Dr. Angulo here in the office for 2 week follow up. Saw Regina Nguyen PA-C on 06/01/2022, started on Zoloft 25 mg. Has been taking zoloft during the day. Refers she has been very tired and hard to get her day going. She refers that she took Zoloft in the past when her passed for a short time which was helpful. CVA on 05/21/2022, was life flighted [facility] to [facility] to have thrombus removed. Having on going risidual left sided weakness. Working on getting stronger. Having OT/PT 3 times per week. Has an appointment with cardiology, Dr. Escalona next month. Seeing neurology this month at [facility] in [place]. Refers that she would like to have an established local neurologist as well. History of sleep apnea but due for repeat sleep study. Has seen Dr. Amin in the past. Has a CPAP but refers she has not used it. Was told while in the hospital that she needs to repeat sleep study. PAST MEDICAL HISTORY: PAST MEDICAL HISTORY Diagnosis Date Arthritis Carcinoma of upper-outer quadrant of right female breast ([facility]) 08/2020 Class 2 obesity due to excess calories in adult 07/09/2018 CVA (cerebral vascular accident) ([facility]) 05/23/2022 05/21/2022 Diverticulosis of colon 07/09/2018 Elevated hemoglobin A1c 01/09/2018 Essential hypertension 08/02/2013 Family history of GA (myocardial infarction) 12/18/2018 Dad and Brother in their 60's Generalized arthritis 01/04/2018 GERD without esophagitis 12/18/2018 Glaucoma 01/07/2019 History of kidney stones 01/10/2022 Lumbar spinal stenosis 02/2020 Malignant neoplasm of upper-outer quadrant of right breast in female, estrogen receptor positive ([facility]) 09/30/2020 Mixed hyperlipidemia 08/02/2013 Morbid obesity ([facility]) 07/09/2018 MVP (mitral valve prolapse) 08/02/2013 Obesity, Class III, BMI 40-49.9 (morbid obesity) ([facility]) 08/10/2020 CLAIRE (obstructive sleep apnea) Osteopenia, senile 07/31/2018 Primary insomnia 01/07/2019 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 Recurrent UTI 01/08/2015 Situational depression 02/04/2017 Trigger finger, left ring finger 07/09/2018 Urge incontinence 01/08/2015 PAST SURGICAL HISTORY Procedure Laterality Date ABDOMINAL SURGERY HX ARTHRP KNE CONDYLE&PLATU MEDIAL&LAT COMPARTMENTS Left 2004 BREAST LUMPECTOMY HX Right 09/11/2020 BREAST SURGERY HX BX/EXC LYMPH NODE OPEN DEEP AXILLARY NODE Right 08/2020 CARPAL TUNNEL CEREBROVASCULAR THROMBECTOMY 05/21/2022 brain- CVA COLONOSCOPY COLONOSCOPY FLX DX W/COLLJ SPEC WHEN PFRMD 09/07/2021 CYSTOCELE REPAIR EXCISION GANGLION WRIST DORSAL/VOLAR PRIMARY EYE SURGERY HX HAND SURGERY HX thumgb surg HYSTERECTOMY HX N/A 1992 JOINT REPLACEMENT HX LEXISCAN STRESS TEST 12/28/2018 negative LITHOTRIPSY / 1 SIDE MASTECTOMY, PARTIAL Right 08/2020 PAST SURGICAL HISTORY OF Right 2003 Partial Right Knee Replacement REPAIR RECTOCELE SEPARATE PROCEDURE STRESS TEST 01/19/2018 normal VAGINAL HYSTERECTOMY ALLERGIES Patient has no known allergies. MEDICATIONS Current Outpatient Medications Medication Sig aspirin, enteric coated (ASPIRIN, ENTERIC COATED) 81 mg EC tablet Take 81 mg by mouth once daily. sertraline (ZOLOFT) 25 mg tablet Take 1 tablet by mouth once daily. losartan (COZAAR) 100 mg tablet Take 1 tablet by mouth once daily. simvastatin (ZOCOR) 20 mg tablet Take 1 tablet by mouth once daily. anastrozole (ARIMIDEX) 1 mg tablet Take 1 tablet by mouth once daily. ascorbic acid (VITAMIN C ORAL) Take 1 tablet by mouth once daily. ECHINACEA ORAL Take one tablet by mouth twice daily 3 months on & 3 months off. loratadine (CLARITIN) 10 mg tablet Take 10 mg by mouth once daily. timolol maleate (TIMOPTIC) 0.5 % drpd Use 1 Drop in both eyes twice daily. cholecalciferol (VITAMIN D-3) 2,000 unit tablet Take 2,000 Units by mouth twice daily. zinc once daily. Lysine (L-LYSINE) 500 mg tab Take 2 tablets by mouth once daily. vitamin b complex (B COMPLEX 1) Tab Take 1 tablet by mouth once daily. Calcium Carbonate 500 mg calcium (1,250 mg) capsule Take 1,250 mg by mouth twice daily with meals. Huombssymgmdf-Ctgjazhj-Kcughh (CENTRUM SILVER) Tab Take 1 tablet by mouth once daily. No current facility-administered medications for this visit. FAMILY HISTORY Problem Relation Age of Onset Heart Mother CHF Hypertension Mother Diabetes Mother Coronary Artery Disease Father early 60's Stroke Father Alzheimer's Disease Sister Diabetes Sister other (lung cancer) Sister Colon Cancer Sister Diabetes Sister Heart Sister valve replacement Diabetes Sister Diabetes Brother other (lung cancer) Brother Coronary Artery Disease Brother 60's Asthma Son Hodgkin Lymphoma Daughter Thyroid Cancer Daughter Hypertension Daughter Breast Cancer Daughter Hypertension Daughter Obesity Daughter Social History Tobacco Use Smoking status: Never Smokeless tobacco: Never Vaping Use Vaping Use: Never used Substance Use Topics Alcohol use: No Drug use: No REVIEW OF SYSTEMS GENERAL: + Fatigue HEENT: Negative for frequent or significant headaches, No changes in hearing or vision. NECK: Negative for lumps, goiter, pain and significant neck swelling RESPIRATORY: Negative for cough, hemoptysis, wheezing, dyspnea or shortness of breath CARDIOVASCULAR: Negative for chest pain, leg swelling, orthopnea, or palpitations GI: No nausea, vomiting, or diarrhea/constipation. No hematochezia/melena. No heartburn or reflux symptoms. : No history of dysuria, frequency or incontinence MUSCULOSKELETAL: Negative for joint pain or swelling. SKIN: Negative for lesions, rash, and itching ENDOCRINE: Negative for cold or heat intolerance, polyuria, polydipsia and goiter NEURO: No history of headaches, syncope, paralysis, seizures or tremors MOOD: Negative for depression, anxiety, or suicidal ideation. EXAM: BP 138/90 Pulse 74 Resp 16 Wt 98.4 kg (217 lb) SpO2 94% BMI 40.34 kg/m PHYSICAL EXAM: General Appearance: Well appearing, alert, in no acute distress, well-hydrated, well nourished. Skin: Skin color, texture, turgor normal, no suspicious rashes or lesions. Head: Normocephalic, no masses, lesions, tenderness or abnormalities. Eyes: Anicteric sclera. Pupils are equally round and reactive to light. Extraocular movements are intact. Neck: Supple, no adenopathy; thyroid symmetric, normal size, no bruits. Lungs: Lungs clear to auscultation. No wheezing, rhonchi, rales. Heart: RRR without murmur, gallop, or rubs. No ectopy. Extremities: No deformities, edema, skin discoloration, clubbing or cyanosis. Good capillary refill. Peripheral Pulses: Normal, Capillary refill <2secs, strong peripheral pulses, Pulses palpable. Neurologic: Gait normal. Reflexes normal and symmetric. Sensation grossly intact., Negative findings: speech normal, mental status intact, cranial nerves 2-12 intact, muscle tone normal, muscle strength normal, sensation to light touch and pinprick normal. ASSESSMENT/PLAN: 1. Cerebrovascular accident (CVA) due to occlusion of cerebral artery (HCC) - ICD9: 434.91, ICD10: I63.50 (primary diagnosis) - Keep scheduled appointment with neurology at [facility]. - February schedule appointment with local Neurology. - Continue to take all medication as prescribed. - POLYSOMNOGRAM (PSG) - CONSULT TO NEUROLOGY 2. CLAIRE (obstructive sleep apnea) - ICD9: 327.23, ICD10: G47.33 - Schedule appointment for sleep study. - POLYSOMNOGRAM (PSG) 3. Situational depression - ICD9: 309.0, ICD10: F43.21 - Continue to take Zoloft but switch to taking medication at night to help with daytime sleepiness. Follow-up in 3 to 4 weeks as needed. Discussed treatment plan and patient voices understanding. Patient's questions answered appropriately. Medications and potential side effects were discussed and patient voices understanding. Massiel Soliz APRN.MITZY This note was partially generated using [employer] voice recognition system. Note was reviewed for accuracy. There may be minor misspellings or grammar miscues with [employer] voice recognition. documented in this encounterAccess [facility] [place]22 Instructions* Patient Instructions* Regina Nguyen PA-C - 06/01/2022 9:07 AM EDT We are starting zoloft to help with some of the mood changes you have noticed. Starting at just 25mg. Keep appointment in August, however contact us sooner if needed. documented in this encounterAccess [facility] [place]08-03-[facility]22 History of Present illness Narrative* Regina Nguyen PA-C - 06/01/2022 8:46 AM EDT Chief Complaint Patient presents with: Hospital Follow Up HPI Brittani Sage is a 77 year old female who presents here today for Hospital Discharge Follow up.. Patient presented to [facility] on 05/21 for possible stroke. She had disoriented speech and EMS witnessed facial droop and left sided weakness. After initial test, [facility] sent patient to [facility] for stroke protocol.. At the time of this visit, discharge summary from [facility] is not available. Care everywhere used as well as patient reported hx. Patient states that she had thrombectomy and the repeat CT follow day was clear. Per patient she was discharged from hospital on 05/24. Only new med currently is aspirin. Awaiting further testing before any other changes. She has a follow up at [facility] with CV specialist on 06/20. She is set up to have THEA and a holter monitor completed. She is scheduled in June to see Dr. Escalona. patient is scheduled to start physical therapy and occupational therapy. Patient's concerned today with some anxiety. Addendum: D/c summary reviewed: NIHSS was 2 at time of presentation and CT showed Hypoerdencse right MCA. Shew was give tPA and transferred to [facility]. CTA Brain/neck showed R M1 occlusion. No carotid stenosis noted. All other vessels normal. Initially she was enrolled in a clinical trial however she had worsening neurological exam and repeat NIHSS score increase to aprox 11. She was immediately taken to OR for RM1 thrombectomy with revascularization. Repeat CT showed no hemorrhage. TTE showed EF of 60-65% with no valve dz. ECG NSR Outpt THEA was ordered as well as cardiac event monitor. Past medical history, appointments, medications, allergies reviewed. Previous Medical History PAST MEDICAL HISTORY Diagnosis Date Arthritis Carcinoma of upper-outer quadrant of right female breast ([facility]) 08/2020 Class 2 obesity due to excess calories in adult 07/09/2018 Diverticulosis of colon 07/09/2018 Elevated hemoglobin A1c 01/09/2018 Essential hypertension 08/02/2013 Family history of GA (myocardial infarction) 12/18/2018 Dad and Brother in their 60's Generalized arthritis 01/04/2018 GERD without esophagitis 12/18/2018 Glaucoma 01/07/2019 History of kidney stones 01/10/2022 Lumbar spinal stenosis 02/2020 Malignant neoplasm of upper-outer quadrant of right breast in female, estrogen receptor positive (HCC) 09/30/2020 Mixed hyperlipidemia 08/02/2013 Morbid obesity ([facility]) 07/09/2018 MVP (mitral valve prolapse) 08/02/2013 Obesity, Class III, BMI 40-49.9 (morbid obesity) ([facility]) 08/10/2020 CLAIRE (obstructive sleep apnea) Osteopenia, senile 07/31/2018 Primary insomnia 01/07/2019 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 Recurrent UTI 01/08/2015 Situational depression 02/04/2017 Trigger finger, left ring finger 07/09/2018 Urge incontinence 01/08/2015 Previous Surgical History PAST SURGICAL HISTORY Procedure Laterality Date ABDOMINAL SURGERY HX ARTHRP KNE CONDYLE&PLATU MEDIAL&LAT COMPARTMENTS Left 2004 BREAST LUMPECTOMY HX Right 09/11/2020 BREAST SURGERY HX BX/EXC LYMPH NODE OPEN DEEP AXILLARY NODE Right 08/2020 CARPAL TUNNEL COLONOSCOPY COLONOSCOPY FLX DX W/COLLJ SPEC WHEN PFRMD 09/07/2021 CYSTOCELE REPAIR EXCISION GANGLION WRIST DORSAL/VOLAR PRIMARY EYE SURGERY HX HAND SURGERY HX thumgb surg HYSTERECTOMY HX N/A 1991 JOINT REPLACEMENT HX LEXISCAN STRESS TEST 12/28/2018 negative LITHOTRIPSY / 1 SIDE MASTECTOMY, PARTIAL Right 08/2020 PAST SURGICAL HISTORY OF Right 2003 Partial Right Knee Replacement REPAIR RECTOCELE SEPARATE PROCEDURE STRESS TEST 01/19/2018 normal VAGINAL HYSTERECTOMY Family History FAMILY HISTORY Problem Relation Age of Onset Heart Mother CHF Hypertension Mother Diabetes Mother Coronary Artery Disease Father early 60's Stroke Father Alzheimer's Disease Sister Diabetes Sister other (lung cancer) Sister Colon Cancer Sister Diabetes Sister Heart Sister valve replacement Diabetes Sister Diabetes Brother other (lung cancer) Brother Coronary Artery Disease Brother 60's Asthma Son Hodgkin Lymphoma Daughter Thyroid Cancer Daughter Hypertension Daughter Breast Cancer Daughter Hypertension Daughter Obesity Daughter Patient Allergies ALLERGIES No Known Allergies Current Medications Current Outpatient Medications on File Prior to Visit Medication Sig aspirin, enteric coated (ASPIRIN, ENTERIC COATED) 81 mg EC tablet Take 81 mg by mouth once daily. losartan (COZAAR) 100 mg tablet Take 1 tablet by mouth once daily. simvastatin (ZOCOR) 20 mg tablet Take 1 tablet by mouth once daily. anastrozole (ARIMIDEX) 1 mg tablet Take 1 tablet by mouth once daily. ascorbic acid (VITAMIN C ORAL) Take 1 tablet by mouth once daily. ECHINACEA ORAL Take one tablet by mouth twice daily 3 months on & 3 months off. loratadine (CLARITIN) 10 mg tablet Take 10 mg by mouth once daily. timolol maleate (TIMOPTIC) 0.5 % drpd Use 1 Drop in both eyes twice daily. cholecalciferol (VITAMIN D-3) 2,000 unit tablet Take 2,000 Units by mouth twice daily. zinc once daily. Lysine (L-LYSINE) 500 mg tab Take 2 tablets by mouth once daily. vitamin b complex (B COMPLEX 1) Tab Take 1 tablet by mouth once daily. Calcium Carbonate 500 mg calcium (1,250 mg) capsule Take 1,250 mg by mouth twice daily with meals. Nnihzdpqtcquu-Wlvjbozd-Yeedba (CENTRUM SILVER) Tab Take 1 tablet by mouth once daily. No current facility-administered medications on file prior to visit. Social History Social History Tobacco Use Smoking status: Never Smoker Smokeless tobacco: Never Used Vaping Use Vaping Use: Never used Substance Use Topics Alcohol use: No Drug use: No Review of Symptoms REVIEW OF SYSTEMS see hpi EXAM: BP 158/90 (BP Site: Left Arm, BP Position: Sitting, BP Cuff Size: Large Adult) Pulse 88 Temp 36.9 C (98.4 F) Resp 18 Wt 99.8 kg (220 lb) BMI 40.90 kg/m BP 154/86 (BP Site: Left Arm, BP Position: Sitting, BP Cuff Size: Extra Large Adult) Pulse 72 Temp 36.9 C (98.4 F) Resp 18 Wt 99.8 kg (220 lb) BMI 40.90 kg/m General Appearance: Well appearing, alert, in no acute distress, well-hydrated, well nourished.. Neck: Supple, no adenopathy; thyroid symmetric, normal size, no bruits. Lungs: Lungs clear to auscultation. No wheezing, rhonchi, rales.. Heart: RRR without murmur, gallop, or rubs. No ectopy. Extremities: No deformities, edema, skin discoloration, clubbing or cyanosis. Good capillary refill. . Peripheral Pulses: Normal. Health Maintenance List DTAP,TDAP,TD(2 - Tdap) due on 08/02/2010 SHINGRIX VACCINE(1 of 2) due on 11/07/2011 ADVANCE DIRECTIVE DISCUSSION Never done COVID-19 VACCINE(3 - Booster for Marcela series) due on 05/25/2022 INFLUENZA(1) due on 06/30/2022 ANNUAL PCP TEAM CHRONIC DISEASE VISIT due on 02/09/2023 BP CONTROLLED (<130/80) due on 03/30/2023 COLORECTAL CANCER SCREENING due on 09/07/2024 DIABETES SCREEN due on 05/22/2025 BONE DENSITY Completed PNEUMOCOCCAL: 65+ Completed Data reviewed See HPI ASSESSMENT/PLAN: 1. Essential hypertension - ICD9: 401.9, ICD10: I10 (primary diagnosis) - suboptimal control - Continue current medication(s) - Recommended regular aerobic exercise. - Recommend home blood pressure monitoring, to bring results in on next visit - Patient will continue to monitor. Has f/u with specialists. May need med adjustment if still elevated. Could be stress induced. Last 3 Encounter BP Readings: Date: BP: 06/01/2022 154/86[bp magali average[ 03/30/2022 128/65 02/09/2022 100/78 - Goal of BP <130/80 2. Cerebrovascular accident (CVA) due to occlusion of cerebral artery (HCC) - ICD9: 434.91, ICD10: I63.50 Continue with specialist. Advised to make sure to get testing completed as [facility]. 3. Situational depression - ICD9: 309.0, ICD10: F43.21 Will start zoloft. Patient elects to f/u in aug as scheduled but will contact us if needed. Regina Nguyen PA-C I spent a total of 45 minutes on the date of the service which included preparing to see the patient, [id number] patient care, completing clinical documentation, obtaining and/or reviewing separately obtained history and performing a medically appropriate examination. documented in this encounterAccess [facility] [place]07-26-2022 History of Present illness Narrative* Andrew Troncoso RN - 05/24/2022 3:00 PM EDT Final Discharge Planning and Transportation Final Discharge Planning Discharge Disposition: Home Services at Discharge: Occupational Therapy, Physical Therapy, Speech Therapy Plan Plan: Per medical team, patient dc ready today. Outpatient referrals for PT/OT/Speech written. CM spoke with patient who confirms she received them and will schedule the therapy appts herself as she has been somewhere in the past and would like to return there. Family at bedside to transport home. Follow up appts scheduled. Patient/Family In Agreement With Plan: yes Transportation Mode of Transfer: private vehicle Accompanied By: family member Andrew Shaikh RN, BSN, [facility] Clinical Crop Picker * Massiel Cochran OT - 05/24/2022 11:28 AM EDT Acute Occupational Therapy Treatment Prior to Admission AM-PAC Score: PRIOR LEVEL AM-PAC Activity Raw Score: 24 PRIOR LEVEL AM-PAC Mobility Raw Score: 24 Current AM-PAC score(s): CURRENT AM-PAC Activity Raw Score: 22 Based on the above AM-PAC score(s), and OT clinical judgment, discharge destination recommendation is: Home Barriers to discharge home: (none) Supporting Factors (would benefit from skilled therapy services): Recent decline in functional mobility, Recent decline in self-care abilities, Recent decline in cognitive function, Fall risk Mobility equipment available at home: none used Current therapy frequency recommendation(s) in acute: no therapy warranted Precautions and Weightbearing Status: OT Existing Precautions/Restrictions: fall Patient Safety Communication Prior to Visit: Nursing Lines/Tubes/Drains (Rehab Status): Telemetry Respiratory Status O2 Device: room air Subjective: Pt agreeable to therapy session Pain: General Pain Documentation (Adult, OB, Peds) Presence of Pain: denies pain/discomfort Objective/Observation: Vitals/Vitals Responses to Treatment: WFL Cognition Overall Cognitive Status: Within Functional Limits Arousal/Alertness: Appropriate responses to stimuli Orientation Level: Oriented X4 Following Commands: Follows all commands and directions without difficulty Safety Judgment: Good awareness of safety precautions Awareness of Errors: Good awareness of errors made Deficits: Fully aware of deficits ADL Assessment/Intervention: ADLs: Grooming Assistance: Modified independent Grooming Location: standing at sink Grooming Intervention/Details: Pt able to brush teeth and comb selina, at times pt able to complete with dual use of bilatUE and displayed no impairment with LUE Toilet Assistance: Modified independent Toileting Location: toilet Extremity Assessments: See OT Evaluation flowsheet for Extremity Measurement updates. Balance: Sitting Balance Static Sitting-Level of Assistance: Independent Dynamic Sitting-Level of Assistance: Independent Standing Balance Static Standing-Level of Assistance: Supervision, Modified independent Dynamic Standing-Level of Assistance: Supervision Standing-Balance Support: Gait belt Mobility Assessment/Intervention: Sit to Supine Mobility [place] Level: Sit->Supine: modified independence Bed Features/Set-up: Sit->Supine: Flat Transfer Assessment/Intervention: Sit to Stand Transfer [place] Level: Sit->Stand: modified independence Assistive Device: Sit->Stand: gait belt Stand to Sit Transfer [place] Level: Stand->Sit: modified independence Assistive Device: Stand->Sit: gait belt Functional Mobility: Functional Mobility [place] Level: Functional Mobility/Gait: supervision Assistive Device: Functional Mobility/Gait: gait belt Functional Mobility Distance: Distance needed to access restroom Functional Mobility Deficits: None Outcome Score(s): CURRENT [facility] Daily Activity Inpatient Short Form Putting on/Taking Off Lower Body Clothin - A Little Assistance Bathin - A Little Assistance Toiletin - No Assistance Putting on/Taking Off Upper Body Clothin - No Assistance Groomin - No Assistance Eatin - No Assistance CURRENT [facility] Activity Raw Score: 22 CURRENT [facility] Activity Functional Limitation/Modifier: 25.80% Currently Impaired in Daily Activity- CJ Interventions: Intervention 1 Intervention Name: Theraband Exercises LUE Sets/Reps/Duration: 11/06 Details: Pt completed tricep extension, shoulder flexion, shoulder abduction Assessment & Plan: GOOD progression made toward goals as pt with increased strength in left side, and displayed independence with all transfers, toileting and groom ADLs. Due to increased independence pt no longer requires Occupational Therapy services. Patient Instruction/Education this session: Patient Instruction: Role of OT and plan of care Plan for next session: No acute care OT needs Acute OT Goals Plan of Care by Massiel Cochran OT at 05/24/2022 11:22 AM Version 1 of 1 Problem: OT - ADLs Goal: Grooming Description: Pt will complete grooming in standing with modified independence for improved ability to safely complete ADLs. Outcome: Completed Goal: Feeding Description: Pt will perform self-feeding task while seated with modified independence to promote success and safety during daily routine. Outcome: Completed Problem: OT - Endurance Goal: Endurance Functional Task Standing Description: Pt will engage in standing functional task for 10 minutes with supervision to improve activity tolerance necessary for safe ADL completion at recommended discharge destination. Outcome: Completed Problem: OT - Transfers Goal: Transfers Toilet/Bedside Commode Description: Pt will transfer to/from toilet/BSC with modified independence for improved ability tosafely complete ADLs. Outcome: Completed Problem: OT - Strength/ROM Goal: Strength/ROM ADL Participation Description: Pt will demonstrate independence with UE exercise program to prevent deconditioning while in the hospital and to maximize UE ROM/coordination/strength for ADL participation. Outcome: Completed OT treatment consisted of ADL retraining and strengthening to work and progress towards above goal(s). Treating Therapist: Massiel Cochran OT Additional Details: Co-evaluation/co-treatment performed?: No simultaneous skilled care performed I used facemask, protective eye shield, and gloves in today's patient interaction. Patient location at end of session: bed with head of bed elevated Alarms on at end of session: none Needs in reach. Time In: 1049 Time Out: 1117 Total Visit Time: 28 minutes Total Treatment Time (skilled, billable minutes): 28 minutes Upon discontinuation of Acute Care Occupational Therapy Services or patient discharge from the hospital this note represents the current Occupational Therapy Discharge Summary. * Jazmyn Higgins RN - 05/23/2022 2:24 PM EDT Discharge Planning Patient Assessment Admission Assessment Patient Assessment Completed: Yes Anticipated discharge disposition: Inpatient Rehab Facility Reason for Admission: left-sided upper and lower extremity weakness, left facial droop, dysarthria on Is the patient able to participate in the assessment?: Yes Information source: Review of Medical Record, Patient Information Source Name/Contact: Brittani Sage 330- Demographics Verified and Updated: Yes Advanced Care Planning Has the patient completed Advance Directives?: Completed, Not Available in Medical Record Copy of Advance Directives was requested?: Yes Advance Directives Requested From: Pt and adult children Legal Next of Kin Does the patient have a Guardian?: No Spouse: No Adult Child(haven), List All Adult Children: Yes Name and Contact information: Jewel Sage son [place] [phone] Would you like to add additional adult children?: Yes Name and Contact information: Mariposa greeneer [place] [phone] Name and Contact information: Gianna Leung daughter [place] [phone] Name and Contact information: Sharon Sage son no phone contact Reviewed and Updated in Demographics? : Yes Outpatient Providers Does patient have a primary care physician? : Yes When was the patient's last PCP visit?: > 30 days Does the patient follow any specialists?: Yes Reviewed and updated Care Team?: Yes Patient Care Team: Keo Angulo MD as PCP - General (Family Medicine) Uziel Spencer DO (Hematology) Environment/Caregivers Is the patient from a facility or detention?: No Patient lives with: Alone Living Environment: House (1 story home) How many steps does the patient have to navigate to enter or inside the home? : 1 step Does the patient have a first floor set-up with bed and bathroom?: Yes Patient Caregiving Responsibilities: Self Patient-identified caregiver/support network: Family Who does the patient identify as a teachable caregiver(s)?: Child(haven) - Independent Services Does the patient use a home health or hospice agency?: No, Unable to verify Current with dialysis?: No Does the patient use any community programs or services?: No Does patient use DME? : (hearing aids) Does the patient use oxygen?: No Does patient use medical supplies? : none Anticipated Changes Related to Illness/Injury? : No Initial ADLs Prior to Arrival What is the patient's baseline physical functioning prior to this acute illness?: independent What is the patient's baseline cognitive functioning prior to this acute illness?: independent Is the patient's baseline functioning changed by this acute illness? : Yes Changes observed : Physical Concerns with patient being able to care for themselves at home? : Unable to assess Are there therapy or specialists consults?: Yes Select consult type: OT, PT, FREIGHT LOADING SUPERVISOR Does the patient's home require any home modifications for discharge? : No CM to recommend therapy or other consults? : No Medication Management Does the patient have prescription insurance coverage? : Yes Is the patient on Anticoagulation? : No [id number] [place] [address] - [id number] [id number] [employer] Fe[employer] Does the patient or education courses sales representative express financial concerns? : No Employed?: Retired Coping/Stress Concerns about patient s coping and stress?: No Values and Beliefs Cultural or sabianist practices that may impact discharge planning and/or medical care?: No Initial Discharge Planning Anticipated discharge disposition: Inpatient Rehab Facility Transportation Available for Discharge: Ambulance Anticipated DME: unknown at this time Anticipated Services at Discharge: Residential, Physical Therapy, Occupational Therapy Patient Assessment Completed: Yes Risk of Readmission: 3.6 Category Reference: High:16-100 Mod-High:10-16 Mod-Low: 5-10 Low: 0-5 Expected Discharge Date: 05/25/2022 Discharge Planning Summary Pt lives alone has family support. Prefers inpatient Rehab at [facility] at discharge. Case Management Plan CM/SW to follow for discharge planning needs and coordination. Jazmyn Samuel RN BSN Clinical Crop Picker * Lorenzo Pettit, PT - 05/23/2022 2:12 PM EDT Acute Physical Therapy Treatment Prior to Admission AMPA score(s): PRIOR LEVEL AM-PAC Mobility Raw Score: 24 PRIOR LEVEL AM-PAC Activity Raw Score: 24 Current AM-PAC score(s): CURRENT AM-PAC Mobility Raw Score: 20 Based on the above AM-PAC score(s) and PT clinical judgment, patient is a good candidate for discharge to Home with Outpatient Rehab Services (initial increased assist from family for IADLs) Barriers to discharge home: Patient needs assistance with IADLs (see note below) Supporting Factors (would benefit from skilled therapy services): Patient status is anticipated to be appropriate to tolerate inpatient rehab therapy requirements at time of discharge from acute care, Impaired functional status Mobility equipment available at home: none used ADL equipment available at home: Equipment needed for discharge: none Current therapy frequency recommendation in acute: Therapy Frequency: 3 times a week Precautions and Weightbearing Status: Existing Precautions/Restrictions: fall Patient Safety Communication Prior to Visit: Nursing Lines/Tubes/Drains (Rehab Status): Telemetry Respiratory Status O2 Device: room air Subjective: Pt agreeable to therapy. Motivated to get better. Pain: General Pain Documentation (Adult, OB, Peds) Presence of Pain: complains of pain/discomfort Pain Location: arm, left Objective/Observation: Vitals/Vitals Responses to Treatment: WNL Cognition Overall Cognitive Status: Within Functional Limits Arousal/Alertness: Appropriate responses to stimuli Orientation Level: Oriented X4 Following Commands: Follows all commands and directions without difficulty Safety Judgment: Good awareness of safety precautions Awareness of Errors: Good awareness of errors made Deficits: Fully aware of deficits Extremity Assessments: See PT Evaluation flowsheet for Extremity Measurement updates. Balance: Standing Balance Static Standing-Level of Assistance: Stand-by assist Dynamic Standing-Level of Assistance: Stand-by assist Standing-Balance Support: Gait belt Skilled Rationale: Positioning, Verbal cues Standing Balance Skilled Intervention/Details: no LOB noted, short step lengths but reports it is baseline Mobility Assessment/Intervention: Transfer Assessment/Intervention: Sit to Stand Transfer [place] Level: Sit->Stand: stand-by assist Assistive Device: Sit->Stand: gait belt, armed chair Skilled Rationale: Positioning, Verbal cues Skilled Intervention/Details: Sit->Stand: sit to stand x3 with cueing to improve utilization of left UE for push-off Gait/Functional Mobility Assessment/Intervention: Gait Assessment [place] Level: Gait: stand-by assist Assistive Device: Gait: gait belt Gait Distance (feet): 150 ft x2 Gait Deviations Identified: decreased gait speed, decreased step length Gait Skilled Rationale: verbal, upright posture Skilled Intervention/Details - Gait: short step lengths are baseline per pt Stairs Assessment/Intervention: Stairs Assessment [place] Level: Stair Negotiation: stand-by assist Assistive Device: Stair Negotiation: gait belt, right rail (ascending) Number of stairs: 7 Stairs Skilled Rationale: verbal, nonreciprocal pattern Skilled Intervention/Details - Stairs: Pt able to recall step-to pattern with correct foot to lead with. Outcome Score(s): CURRENT [facility] Basic Mobility Inpatient Short Form Turning over in bed: 4 - No Assistance Sitting/standing from chair: 3 - A Little Assistance Moving from lying on back to sittin - No Assistance Moving to and from bed to chair: 3 - A Little Assistance Walk in hospital room: 3 - A Little Assistance Climbing 3-5 steps with a railin - A Little Assistance CURRENT [facility] Mobility Raw Score: 20 CURRENT [facility] Mobility Functional Limitation/Modifier: 35.83% Currently Impaired in Basic Mobility- CJ Interventions: Intervention 1 Intervention Name: left UE therex Sets/Reps/Duration: x10-12 repetitions Details: Resistance strength training with yellow theraband - also provided with green foam block. Performed bicep curls, tricep ext, shoulder flexion, D1&2 PNF patterns, and horizontal shoulder abd. Educated on correct technique. Assessment & Plan: Significantly improved LUE/LLE functional strength. Progressed transfers, gait, and stairs to SBA without a LOB noted. Progressed to home discharge. Patient Instruction/Education this session: left UE HEP Plan for next session: Acute PT Goals Plan of Care by Lorenzo Pettit PT at 05/23/2022 2:12 PM Version 1 of 1 Problem: PT - Mobility Goal: Ambulation Description: Pt will ambulate 250 feet with least restrictive device with modified independence to improve ability to navigate home environment. Outcome: Progressing Toward Goal Goal: Stairs Description: Pt will ascend/descend 5 stairs with unilateral railings with modified independence with least restrictive device to improve ability to perform functional mobility necessary in recommended discharge environment. Outcome: Progressing Toward Goal Problem: PT - Transfers Goal: Sit <-> Stand Description: Pt will perform sit to/from stand transfers with modified independence with least restrictive device in order to improve functional mobility and safety. Outcome: Progressing Toward Goal Goal: Strength/ROM Description: pt will be independent and compliant with therapeutic exercise program Outcome: Progressing Toward Goal PT treatment consisted of Therapeutic Procedure and Gait/Stair Training to work and progress towards above goal(s). Treating Therapist: Lorenzo Pettit PT Additional Details: Co-evaluation/co-treatment performed?: No simultaneous skilled care performed - I used facemask, protective eye shield, and gloves in today's patient interaction. Patient location at end of session: chair Alarms on at end of session: RN aware Needs in reach. Time In: 1412 Time Out: 1440 Total Visit Time: 28 minutes Total Treatment Time (skilled, billable minutes): 28 minutes Upon discontinuation of Acute Care Physical Therapy Services or patient discharge from the hospitalthis note represents the current Physical Therapy Discharge Summary. * Su Villatoro RD - 05/23/2022 9:23 AM EDT NUTRITION ASSESSMENT Nutrition Recommendations and Plan of Care: 1. Continue regular diet at this time. Consider FREIGHT LOADING SUPERVISOR consult for swallow evaluation as appropriate. 2. Monitor PO intake, bowel function, skin integrity, weight change, lab values. 3. RD to follow. Brittani Sage is a 77 y.o. 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 She presented with left-sided upper and lower extremity weakness, left facial droop, dysarthria on 05/21/2022. CT head showed a right hyperdense sign consistent with right MCA occlusion. She was subsequently transferred to [facility] for additional care after obtaining tPA. Neurological exam worsened at around 1800 on 05/21. NSGY was notified and she was emergently taken to OR for RM1 thrombectomy with TICI3 revascularization. She was admitted to NCCU for post operative management. Pt was stable and transferred to Neurovascular on 05/22. Past History Past medical, surgical, family, and social histories have reviewed and are located elsewhere in themedical record. Nutrition History Pt seen for nutrition screen. Daughter at bedside. Pt reports eating 1/3 breakfast this morning. 75% intake of 4 documented meals since admission. Pt reports some choking while eating dunbar and felt dunbar was dry. Daughter reports she also choked on dinner yesterday evening with [place]ic wedding soup and chicken wrap. This has occasionally occurred at home as well. Discussed with STOCKROOM WORKER and FREIGHT LOADING SUPERVISOR regarding swallow evaluation. 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 Diet Order Current Diet Orders Procedures DIET REGULAR Standing Status: Standing Number of Occurrences: 1 Ht: 5' 3 /160 cm Wt: 217#/98.7 kg BMI: 38.6 kg/(m^2) IBW: 115#/52.3 kg %IBW: 189 Weight history: pt reports UBW 210 lb. No significant weight change recently. Wt Readings from Last 20 Encounters: 05/23/22 98.7 kg (217 lb 9.5 oz) 05/21/22 102.4 kg (225.3 lb) - likely inaccurate 03/30/22 95.3 kg (210 lb) 02/09/22 92.5 kg (204 lb) 01/10/22 92.5 kg (204 lb) 09/29/21 89.8 kg (198 lb) 07/29/21 90.4 kg (199 lb 3.2 oz) 05/27/21 90.9 kg (200 lb 8 oz) Meds reviewed: Scheduled: aspirin 81 mg Oral Daily enoxaparin 40 mg Subcutaneous Daily insulin lispro Subcutaneous 4x daily w/meals, HS senna 8.6 mg Oral Daily Or senna 8.6 mg Per NG tube Daily Labs reviewed: Na/K+/Phos/Mg/Ca: 143/4.0/3.1/2.1/-- (05/23 39) Bun/Creat/Cl/CO2/Glucose: 16/0.87/109/26/103 (05/23 39-05/23 1137) WBC/Hgb/Hct/Plts: 8.35/11.7/36.4/207 (05/23 39) GI: WDL Last BM 05/22 Skin: Holden Score: 19 Edema - none Estimated Nutrition Needs: Dosing wt: 115#/52.3 kg - IBW EEN: 6531-7956 (25-30 kcal/kg IBW) EPN: 68-94 (1.3-1.8 g/kg IBW) Malnutrition Diagnosis: Indications of Malnutrition: No malnutrition based on the AND/ASPEN Malnutrition Criteria 2012 Pt remains at nutrition risk due to clinical status, hx of breast cancer, HTN, prediabetes, CLAIRE, GERD, chronic back pain, acute R M1 CVA, reported episodes of choking with foods. Su DOUGLASS, LD, [facility] Pager #[phone] * Rajani Carmona APRN-STEREOTYPE FINISHER - 05/22/2022 1:50 PM EDT NEUROCRITICAL CARE DAILY NOTE HOSPITAL VISIT DEMOGRAPHICS Patient: Brittani Sage Code status: Full Code Admission date: 05/21/2022 3:53 PM Hospital days: LOS: 1 day HISTORY OF PRESENT ILLNESS Brittani Sage is a 77 y.o. 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 She presented with left-sided upper and lower extremity weakness, left facial droop, dysarthria on 05/21/2022. Last known well was approximately 13:30 earlier in the dya. At that time, the patient's friend noticed that she was unable to move her left upper extremity during lunch and had garbled speech. EMS was contacted and was subsequently transferred to their local emergency department. NIH stroke scale at that time was 2. CT head showed a right hyperdense sign consistent with right MCA occlusion. She was subsequently transferred to [facility] for additional care after obtaining tPA at approximately 2:28 p.m. She was admitted to [facility] for further workup. She was noted to have worsening of her neurological exam at around 1800 on 05/21, her NIH scale increased by approximately 11 points at that time. Neurosurgery was notified and she was emergently taken to OR for RM1 thrombectomy with TICI 3 revascularization. She was admitted to [facility]U for post operative management. INTERVAL HISTORY SINCE ADMISSION 05/21/2022: Admit [facility] s/p TPA, worsening NIH with subsequent thrombectomy 05/22: 24 CTH, ASA tonight. D/c'd Khan, [facility] Daughter at bedside. Updated on POC PHYSICAL EXAM GENERAL: Alert, no acute distress HEENT: normocephalic, CARDIO: +S1S2, RRR, Tele: S. Brdy- RSR, no edema PULM: LCTA throughout veronica, diminished veronica LL. Respirations are easy and unlabored. Equal chest rise, ABDOMINAL: soft, rounded, nontender, nondistended, active bowel sounds : khan draining clear, yellow, urine, then removed. EXTREMITIES/ VASCULAR: 2+ distal pulses, capillary refill <3 seconds. Groin site CDI. No hematoma. NEURO: Alert & O x3. Eyes open spont, right gaze preference but can cross midline, visual diaz grossly intact. Left facial droop. Mild dysarthria- much improved. FC x 4 extremities. RUE & RLE 5/5, LUE- + drift but holds x 10 seconds, LLE with drift but able to hold up with out issues. DF/PF strong x2. ASSESSMENT AND PLAN Neuro: (05/21/2022) 1 Day Post-Op s/p RM1 thrombectomy with TICI 3 revascularization (05/21) Acute RM1 CVA Acute Cytotoxic Cerebral Edema - Initial CVA Management: - 05/22 1428 tPA given - s/p thrombectomy TICI 3 - Ongoing CVA management: - 05/22: Neurochecks Q4H - Goal SBP <160 (see cards) - Imaging: - 05/21 initial CTH: Dense R MCA sign - 05/21 CTA: RM1 occlusion, 1.3 cm R thyroid nodule - 05/22 24 hr post TPA CTH: no hemorrhage or mass effect. Faint contrast staining Rt Lentiform nuclei. - MRI B: Pending - 05/22: ASA 81 mg to start tonight. Recent Labs 05/21/22 1603 05/22/22 0011 SODIUM 140 143 OSMOLALITY 299 301 CHLORIDE 109* 109* - Stroke etiology presumed to be unknown based on the TOAST Criteria. Stroke risk factors include hypercholesterolemia and hypertension. - Complete TTE (see cards) - Obtain LDL level and statin therapy if indicated (see cards) - Obtain HA1C level (see endo) - Initiate antiplatelet therapy within 48H of admission (see cards) - Initiate VTE prophylaxis immediately if no tPA given or 24H post-thrombectomy if performed (see heme) - Develop therapeutic anticoagulation plan, if indicated based on CVA etiology (see cards) - Consider urine drug screen on admission if no stroke risk factors - Consider hypercoagulability panel 24H-post tPA if no stroke risk factors - Pain/Sedation management - Tylenol 650mg Q4H PRN Psych: Anxiety - Per family she takes an antidepressant unsure which one - 05/22: Attempted to verify meds today with pt and family. Pt unable to provide meds and or dosages. States list is in her car. Pulm: CLAIRE - Goal SpO2 >92%; wean FiO2 as tolerated O2 Sat (%): 95 % (05/22 1200) O2 Device: room air (05/22 1145) Flow (L/min): 2 (05/22 0700) - Per family pt has CPAP but refuses to wear at home Cards: HTN HLD Prolonged QTc Temp: [97.5 F (36.4 C)-98.1 F (36.7 C)] 97.8 F (36.6 C) Pulse (Heart Rate): [58-75] 70 Resp Rate: [12-31] 22 BP: (107-206)/(49-83) 155/67 O2 Sat (%): [90 %-98 %] 95 % Weight: [98.7 kg (217 lb 9.5 oz)] 98.7 kg (217 lb 9.5 oz) - Goal SBP <160, MAP >65 - Home antihypertensives: - Unknown (possibly lisinopril per family) - 05/22: Pt states she takes losartan- doesn't know dose. Can't remember other meds - Current Meds - PRN labetalol and hydralazine - TTE: P - 05/21 troponin: 4 - 05/21 ECG: NSR QTc 462 - 05/21: LDL 63 statin therapy not indicated unless she takes one at home Renal/: No Current Issues - Fluid Balance: - Goal: euvolemia - Net: +1.3 L/24H, and admission - UOP: 680 mL/admission - 05/22: D/c'd khan - 05/22: D/c'd MIV - Daily Chem 10; - Electrolytes replaced per NCCU protocol Recent Labs 05/21/22 1603 05/22/22 0011 SODIUM 140 143 POTASSIUM 4.0 3.9 CHLORIDE 109* 109* CO2 26 23 BUN 22 17 CREATSERUM 0.92 0.78 MAGNESIUM 1.8 1.7 PHOSPHORUS 3.3 4.0 ICA -- 4.15* GI/Nutrition: GERD Recent Labs 05/21/22 1603 ALBUMIN 3.3* BILIDIRECT <0.1 BILITOTAL 0.5 ALKPHOS 75 ALT 15 AST 24 TP 5.9* - DIET REGULAR AAT - [place] Swallow Screening Result: passed=cleared for oral intake - Consult nutrition for malnutrition screening - Bowel regimen: - - Senna - Miralax prn Endo: Prediabetes - Goal blood glucose 140-180 - 05/21 HGA1C: 5.8 - 05/22: Changed to BS AC & HS w/ Lispro Coverage Recent Labs 05/21/22 1600 05/21/22 1603 05/21/22 2333 05/22/22 0011 GLUCOSE 136* 149* 107* 121* HGBA1C -- -- -- 5.8* ID: No Current Issues Recent Labs 05/21/22 1603 05/22/22 0011 WBC 10.42 9.03 - Temp (24hrs), Av.9 F (36.6 C), Min:97.5 F (36.4 C), Max:98.1 F (36.7 C) - PRN Tylenol for T>100.4F - Most recent and positive cultures: Date Collected Source Result Date Finalized - Antiinfectives: Start Date Antiinfective Coverage Course Length Stop Date Heme/Onc: Hx DCIS s/p lumpectomy Recent Labs 05/21/22 1603 05/21/22 1636 05/22/22 0011 WBC 10.42 -- 9.03 RBC 4.15 -- 4.21 HGB 12.5 -- 12.5 HCT 38.4 -- 38.6 PLATELET 201 -- 210 PT 14.3* -- -- PTT 26.6 -- -- INR 1.1 -- -- FIBRINOGEN -- 277 291 - Goal plt >100, INR <1.4, Hgb >7 - OR EBL: Minimal - Initiate chemical DVT ppx after [address] scan - hold home tamoxifen Musc: Acute Deconditioning - PT/OT consulted and following - Current Activity Order: AAT Social/Dispo: - Code status: Full Code - Primary Emergency Contact: Mariposa Sage - HCPOA/LNOK: - 05/21: Last updated daughter and son at bedside - Medications reconciliation pending. Family is unsure of med list may need to call pharmacy in theAM for fill history - Discharge planning per PCRM/SW. ICU Checklist: [ ] CAM-ICU [ ] ICU Diary not indicated [ ] SAT [ ] SBT [ x] DVT ppx; [x ] SCDs; [ ] Lovenox- Starting 725 am, [ ] heparin [ ] Stress ulcer prophylaxis: Not indicated - Lines/Tubes: PIVs Pt condition and POC discussed with Dr. David Carmona, FLOOR LAYER-STEREOTYPE FINISHER Service pager: [phone] Service [place] #: [phone] (Beds [id number] and beds), [place] #: [id number] (Beds [phone] and [facility]) 05/22/22 1:50 PM Associated attestation - Rai Hernandez MD - 05/22/2022 11:19 PM EDT I personally evaluated and examined the patient and spent the majority of time developing the assessment and plan. 77F admitted to the [facility] with Rt M1 occlusion s/p IV tPA and TICI3 thrombectomy. Standard post-tPA care and stroke work up ongoing. Verify home meds and restart. H/o CLAIRE non-compliant on CPAP: use as needed. Other supportive care as outlined below and stable for transfer. * Jerry Ruiz MD - 05/22/2022 1:37 PM EDT At this time, pt requires no further acute neurosurgical intervention. Pt should follow up with [facility]. Jerry Ruiz MD PGY7 Neurological Surgery Pager: [phone] * Annabelle Dalal OT - 05/22/2022 11:34 AM EDT Acute Occupational Therapy Evaluation Prior to Admission AM-PAC Score: PRIOR LEVEL AM-PAC Activity Raw Score: 24 Current AM-PAC score(s): CURRENT AM-PAC Activity Raw Score: 16 Based on the above AM-PAC score(s) and OT clinical judgment, discharge destination recommendation is: Inpatient Rehab Facility Supporting Factors (would benefit from skilled therapy services): Recent decline in functional mobility, Recent decline in self-care abilities, Recent decline in cognitive function, Fall risk Mobility equipment available at home: none used ADL equipment available at home: Equipment recommendations for discharge: Current therapy frequency recommendation(s) in acute: 5 times a week Precautions and Weightbearing Status: Patient Safety Communication Prior to Visit: Nursing Subjective: Pt received supine and agreeable to tx. Pt reports My left arm and leg feel really heavy Pain: General Pain Documentation (Adult, OB, Peds) Presence of Pain denies pain/discomfort Home Setting Residence: House Lives With: alone First floor setup: tub shower, bedroom Number of stairs to enter home: 2 Number of stairs in home: 4-5 (does not need to use) Stair Railings at Home: entry - with rail Mobility Equipment Available: none used Previous Level of Function Prior level ADL Overview: Independent with all ADLs Dominant Hand: Right Bed Mobility/Transfers: independent Ambulation Skills: independent Assistive Device: none used Level of Ambulation: community IADL History IADLs: independent Primary Language: Italian Home Management Skills: independent Medication Management: independent Homemaking Responsibilities: Yes Meal Prep Responsibility: Primary Laundry Responsibility: Primary Cleaning Responsibility: Primary Bill Paying/Finance Responsibility: Primary Shopping Responsibility: Primary Objective/Observation: Vitals/Vitals Responses to Treatment: No signs/ symptoms of distress. Pt with increased fatigue during functional tasks requiring brief rest breaks x 2 to manage fatigue. Cognition Overall Cognitive Status WFL Arousal/Alertness Appropriate responses to stimuli Orientation Level Oriented X4 Following Commands Follows one step commands without difficulty Safety Judgment Good awareness of safety precautions Awareness of Errors Assistance required to identify errors made;Assistance required to correct errors made Deficits Fully aware of deficits Attention Span Difficulty dividing attention Memory Decreased short term memory Problem Solving Assistance required to identify errors made;Assistance required to generate solutions;Assistance required to implement solutions Vision Screen Currently wearing corrective lenses Yes;Tri-focal Visual Impairments Observed? No Speech Speech slurred speech Successful Methods (Communication Strategies) verbal speech Hearing Hearing no gross deficits noted ADLs: ADL Overview ADL Assessment Assessed All ADLs ADL Anticipated Performance (ADLs not directly observed this session) Toileting;UE Dressing;Bathing;Grooming E ADL Overview ADL Assessment Assessed All ADLs ADL Anticipated Performance (ADLs not directly observed this session) Toileting;UE Dressing;Bathing;Grooming Eating Eating Assistance Minimal Grooming Grooming Assistance Contact guard assist Bathing Bathing Assistance Moderate UE Dressing UE Dressing Assistance Stand by LE Dressing LE Dressing Assistance Moderate Toileting Toileting Assistance Minimal Extremity Assessments: UE Dressing UE Dressing Assistance Stand by LE Dressing LE Dressing Assistance Moderate Balance: Sitting Balance Static Sitting-Level of Assistance Standby Dynamic Sitting-Level of Assistance Contact guard Skilled Rationale Verbal cues Standing Balance Static Standing-Level of Assistance Contact guard Dynamic Standing-Level of Assistance Minimum assistance Neuro: Gross Coordination Gross Coordination RUE intact;LUE impaired Fine Motor Coordination Additional Documentation Yes Fine Motor Coordination Left Hand, Manipulation of Objects moderate impairment Right Hand, Manipulation of Objects normal performance Mobility Assessment: Supine to Sit Mobility [place] Level: Supine->Sit minimum assist (75% patient effort) Bed Features/Set-up: Supine->Sit Head of bed elevated;Use of bed rail Transfer Assessment: Sit to Stand Transfer [place] Level: Sit->Stand minimum assist (75% patient effort) Assistive Device: Sit->Stand 2 wheeled walker Skilled Rationale Verbal cues;Technique of activity Skilled Intervention/Details: Sit->Stand requires increased time to complete Stand to Sit Transfer [place] Level: Stand->Sit minimum assist (75% patient effort) Assistive Device: Stand->Sit 2 wheeled walker Skilled Rationale Verbal cues Functional Mobility: Functional Mobility [place] Level: Functional Mobility/Gait minimum assist (75% patient effort) Assistive Device: Functional Mobility/Gait 2 wheeled walker Functional Mobility Distance Distance needed to access restroom Functional Mobility Deficits Activity tolerance;Balance;Generalized weakness Functional Mobility Skilled Rationale Verbal cues;Walker management/safety;Technique of activity Skilled Intervention/Details - Functional Mobility/Gait Pt required verbal cues and guidance to maintain middle of WW as lt crowds lt side of WW Wheelchair Assessment Patient currently uses wheelchair? No Outcome Score(s): CURRENT [facility] Daily Activity Inpatient Short Form Putting on/Taking Off Lower Body Clothing 2 - A Lot of Assistance Bathing 2 - A Lot of Assistance Toileting 3 - A Little Assistance Putting on/Taking Off Upper Body Clothing 3 - A Little Assistance Grooming 3 - A Little Assistance Eating 3 - A Little Assistance CURRENT AM-PAC Activity Raw Score 16 CURRENT AM-PAC Activity Functional Limitation/Modifier 53.32% Currently Impaired in Daily Activity - CK Assessment & Plan: Brittani Sage is a 77 y.o. Right handed female with PMH significant for HTN and HLD who presents with left-sided upper and lower extremity weakness, left facial droop, dysarthria. Last known well was approximately 13 30 today when she was having lunch with a friend. At that time per report, the patient's friend noticed that she was unable to move her left upper extremity during lunch and had garbled speech. EMS was contacted and was subsequently transferred to their local emergency department. At that time was seen by tele stroke by Dr. Castellanos, and was considered a tPA candidate. NIH stroke scale at that time was 2. CT head showed a right hyperdense sign consistent with right MCA occlusion. She was subsequently transferred to [facility] for additional care after obtaining tPA at approximately 2:28 p.m. Patient was seen for therapy evaluation related to left hemiparesis causing decline in self care status and decline in basic mobility. Exam findings include impairments in: balance, cognitive impairments, coordination, endurance, strength, transfers. These impairments contribute to occupational performance limitations including bathing, dressing, grooming, toileting, functional mobility, home management tasks, ADL transfers. The following factors impact the plan of care: left inattention, left hemiparesis Patient will benefit from skilled occupational therapy to address these impairments, occupational performance limitations, and participation restrictions. Patient's rehab potential is: excellent. Planned Therapy Interventions (OT Eval): ADL retraining, IADL retraining, balance training, bed mobility training, cognitive training, fine motor coordination training, functional activity tolerance,strengthening, ROM (range of motion), transfer training Patient Instruction/Education this session: Plan for next session: standing grooming Acute OT Goals Plan of Care by Annabelle Dalal OT at 05/22/2022 10:34 AM Version 1 of 1 Problem: OT - Dressing Goal: Lower Body Dressing Description: Pt will complete LE dressing tasks with modified independence for improved ability to complete self-care activities. Outcome: Ongoing Problem: OT - ADLs Goal: Grooming Description: Pt will complete grooming in standing with modified independence for improved ability to safely complete ADLs. Outcome: Ongoing Goal: Toileting Description: Pt will complete toileting task including clothing management with modified independence for improved ability to safely complete self-care activities. Outcome: Ongoing Goal: Feeding Description: Pt will perform self-feeding task while seated with modified independence to promote success and safety during daily routine. Outcome: Ongoing Problem: OT - Cognition Goal: Cognition Home Maintenance Description: Pt will complete simulated home maintenance task (medication management, finance management, etc.) with modified independence to promote safety and success at discharge destination. Outcome: Ongoing Problem: OT - Endurance Goal: Endurance Functional Task Standing Description: Pt will engage in standing functional task for 10 minutes with supervision to improve activity tolerance necessary for safe ADL completion at recommended discharge destination. Outcome: Ongoing Problem: OT - Transfers Goal: Transfers Toilet/Bedside Commode Description: Pt will transfer to/from toilet/BSC with modified independence for improved ability tosafely complete ADLs. Outcome: Ongoing Problem: OT - Strength/ROM Goal: Strength/ROM ADL Participation Description: Pt will demonstrate independence with UE exercise program to prevent deconditioning while in the hospital and to maximize UE ROM/coordination/strength for ADL participation. Outcome: Ongoing Evaluating Therapist: Annabelle Dalal OT Additional Details: Co-evaluation/co-treatment performed?: Yes, simultaneous billable skilled care This co-evaluation session performed between OT and PT was beneficial, necessary and provided distinct services in establishing this person's individual plan of care. Medical complexity with functional deficits necessitated two skilled therapy disciplines working concurrently to determine each discipline's goals. This co-treatment was medically necessary due to patient's: Postural control I used facemask, protective eye shield, and gloves in today's patient interaction. OT Evaluation Complexity Occupational Profile and Client History: Assessment of Occupational Performance: Clinical Decision/Performance Deficits: Time In: 1009 Time Out: 1034 Total Visit Time: 25 minutes Total Treatment Time (skilled, billable minutes): 25 minutes Patient location at end of session: chair Alarms on at end of session: RN aware Needs in reach. Upon discontinuation of Acute Care Occupational Therapy Services or patient discharge from the hospital this note represents the current Occupational Therapy Discharge Summary. * Chandu Rodriguez, PT - 05/22/2022 10:15 AM EDT Acute Physical Therapy Evaluation Prior to Admission AMPAC score(s): PRIOR LEVEL AM-PAC Mobility Raw Score: 24 Current AM-PAC score(s): CURRENT AM-PAC Mobility Raw Score: 17 Based on the above AM-PAC score(s) and PT clinical judgment, patient is a good candidate for discharge to Inpatient Rehab Facility Supporting Factors (would benefit from skilled therapy services): Patient status is anticipated to be appropriate to tolerate inpatient rehab therapy requirements at time of discharge from acute care, Impaired functional status Mobility equipment available at home: none used ADL equipment available at home: Equipment needed for discharge: to be determined Current therapy frequency recommendation in acute: Therapy Frequency: 5 times a week Precautions and Weightbearing Status: Existing Precautions/Restrictions: fall Patient Safety Communication Prior to Visit: Nursing Respiratory Status O2 Device: room air Subjective: Patient agreeable. Highly motivated Pain: General Pain Documentation (Adult, OB, Peds) Presence of Pain: denies pain/discomfort Home Setting Residence: House Lives With: alone First floor setup: tub shower, bedroom Number of stairs to enter home: 2 Number of stairs in home: 4-5 (does not need to use) Stair Railings at Home: entry - with rail Mobility Equipment Available: none used Previous Level of Function Prior level ADL Overview: Independent with all ADLs Bed Mobility/Transfers: independent Ambulation Skills: independent Assistive Device: none used Level of Ambulation: community Objective/Observation: Vitals/Vitals Responses to Treatment: no adverse reactions Cognition Overall Cognitive Status: Within Functional Limits Arousal/Alertness: Appropriate responses to stimuli Orientation Level: Oriented X4 Following Commands: Follows all commands and directions without difficulty Safety Judgment: Good awareness of safety precautions Deficits: Fully aware of deficits Attention Span: Appears intact Extremity Assessments: LUE Assessment LUE Assessment: Strength Impaired, AROM Impaired RLE Assessment RLE Assessment: Within Functional Limits LLE Assessment LLE Assessment: Strength Impaired, AROM Impaired Sensation Overall Sensation: Intact Mobility Assessment: Rolling/Turning Mobility [place] Level: Rolling/Turning: minimum assist (75% patient effort) Supine to Sit Mobility [place] Level: Supine->Sit: minimum assist (75% patient effort) Balance: Sitting Balance Static Sitting-Level of Assistance: Standby Dynamic Sitting-Level of Assistance: Contact guard Standing Balance Static Standing-Level of Assistance: Contact guard Dynamic Standing-Level of Assistance: Contact guard Transfer Assessment: Sit to Stand Transfer [place] Level: Sit->Stand: minimum assist (75% patient effort) Assistive Device: Sit->Stand: 2 wheeled walker Stand to Sit Transfer [place] Level: Stand->Sit: minimum assist (75% patient effort) Assistive Device: Stand->Sit: 2 wheeled walker Gait/Functional Mobility: Gait Assessment [place] Level: Gait: contact guard assist Assistive Device: Gait: 2 wheeled walker Gait Distance (feet): 50 Gait Deviations Identified: decreased gait speed, antalgic, decreased weight shifting Gait Skilled Rationale: verbal, upright posture Stairs: Outcome Score(s): CURRENT [facility] Basic Mobility Inpatient Short Form Turning over in bed: 3 - A Little Assistance Sitting/standing from chair: 3 - A Little Assistance Moving from lying on back to sittin - A Little Assistance Moving to and from bed to chair: 3 - A Little Assistance Walk in hospital room: 3 - A Little Assistance Climbing 3-5 steps with a railin - A Lot of Assistance CURRENT [facility] Mobility Raw Score: 17 CURRENT [facility] Mobility Functional Limitation/Modifier: 50.57% Currently Impaired in Basic Mobility- CK Assessment & Plan: Patient was admitted for CVA and seen for therapy evaluation related to mobility deficits/dischargeneeds. Exam findings include impairments in: Strength, Gait/Locomotion, Transfers. These impairments contribute to functional limitations including Ambulation/locomotion pain. Current clinical presentation is Evolving - changing/inconsistent clinical characteristics (Moderate). Patient history factors impacting Plan Of Care include . Patient will benefit from skilled physical therapy to address these impairments, functional limitations, and participation restrictions andhas excellent rehab potential to achieve therapy goals. Planned Therapy Interventions: balance training, functional activity tolerance, endurance, bed mobility training, transfer training, strengthening, neuromuscular re-education, motor coordination training Plan for next session: progress activity per pt tolerance Acute PT Goals Plan of Care by Chandu Rodriguez PT at 05/22/2022 1:57 PM Version 1 of 1 Problem: PT - Mobility Goal: Ambulation Description: Pt will ambulate 250 feet with least restrictive device with modified independence to improve ability to navigate home environment. Outcome: Ongoing Goal: Stairs Description: Pt will ascend/descend 5 stairs with unilateral railings with modified independence with least restrictive device to improve ability to perform functional mobility necessary in recommended discharge environment. Outcome: Ongoing Problem: PT - Transfers Goal: Supine <-> Sit Description: Pt will perform bed mobility with flat bed & no rail with independence in order toimprove functional mobility and safety. Outcome: Ongoing Goal: Sit <-> Stand Description: Pt will perform sit to/from stand transfers with modified independence with least restrictive device in order to improve functional mobility and safety. Outcome: Ongoing Goal: Strength/ROM Description: pt will be independent and compliant with therapeutic exercise program Outcome: Ongoing Evaluating Therapist: Chandu Rodriguez PT Additional Details: Co-evaluation/co-treatment performed?: Yes, simultaneous billable skilled care This co-evaluation session performed between PT and OT was beneficial, necessary and provided distinct services in establishing this person's individual plan of care. Medical complexity with functional deficits necessitated two skilled therapy disciplines working concurrently to determine each discipline's goals. This co-treatment was medically necessary due to patient's: activity tolerance I used facemask, protective eye shield, and gloves in today's patient interaction. Evaluation Complexity Components History: Moderate (1-2 personal factors and/or comorbidities) Body Systems Review: Moderate (Addressing a total of 3 or more elements) Clinical Presentation: Evolving - changing/inconsistent clinical characteristics (Moderate) Clinical Decision Making: Moderate Time In: 1015 Time Out: 1035 Total Visit Time: 20 minutes Total Treatment Time (skilled, billable minutes): 20 minutes Patient location at end of session: chair Alarms on at end of session: RN aware Needs in reach. Upon discontinuation of Acute Care Physical Therapy Services or patient discharge from the hospitalthis note represents the current Physical Therapy Discharge Summary. * Alexandria Del Valle, FREIGHT LOADING SUPERVISOR - 05/22/2022 9:44 AM EDT Acute Care FREIGHT LOADING SUPERVISOR Speech/Language/Cognitive Evaluation Best mode of Communication: spoken language (regular speech) Discharge Recommendations: Based on the below outcome measures/assessment score(s) and FREIGHT LOADING SUPERVISOR clinicaljudgment, discharge destination recommendation is: Deferred to PT/OT recomendations related to mobility. Recommend ongoing FREIGHT LOADING SUPERVISOR at next level of care. Barriers to discharge home: 1:1 assist needed for IADL's including medication management and finances Acute FREIGHT LOADING SUPERVISOR Outcomes Tracking Communicate basic wants and needs?: yes Demo insight/appreciation of deficits?: yes Complete basic problem solving?: yes Current therapy frequency recommendation in acute: Speech/Lang/Cog Therapy Frequency: 3 times a week Clinical Impression: Brittani Sage presents with mild cognitive-communicative impairments in the setting of right CVA primarily characterized by impaired insight into her acute changes, impaired sustained attention andtopic maintenance, impaired immediate/working memory. Receptive-expressive language were functionalto engage in clinical interview. Oriented x4. Functional problem solving in her immediate environment with difficulty grasping higher level concepts (I.e. why it is currently unsafe to return to driving with left hemiparesis, mild inattention and limited insight into her difficulties). Did not assess reading/writing. Patient Instruction/Education this session: Pt endorsed frustration with her friends berating her and calling the squad during acute CVA onset as she didn't know anything was wrong, they were justbeing mean. initiated education that lack of insight is often a lloyd feature of a right CVA and normalized her frustration. Plan for next session: see POC Subjective: alert, cooperative, upright in chair Pain: General Pain Documentation (Adult, OB, Peds) Presence of Pain: denies pain/discomfort DVPRS (Defense and Veterans Pain Rating Scale) DVPRS: Rest: 0- no pain DVPRS: Activity: 3- mild pain Patient History Comments: Brittani Sage is a 77 y.o. 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 She presented with left-sided upper and lower extremity weakness, left facial droop, dysarthria on 05/21/2022. Last known well was approximately 13:30 earlier in the dya. At that time, the patient's friend noticed that she was unable to move her left upper extremity during lunch and had garbled speech. EMS was contacted and was subsequently transferred to their local emergency department. NIH stroke scale at that time was 2. CT head showed a right hyperdense sign consistent with right MCA occlusion. She was subsequently transferred to [facility] for additional care after obtaining tPA at approximately 2:28 p.m. She was admitted to [facility] for further workup. She was noted to have worsening of her neurological exam at around 1800 on 05/21, her NIH scale increased by approximately 11 points at that time. Neurosurgery was notified and she was emergently taken to OR for RM1 thrombectomy with TICI 3 revascularization. Prior Level of Function: She is independent and lives alone in [place], [place]. She drives and manages all ADL/iADL tasks. She is right handed. She wears readers, denied dentures or hearing aids. She recently lost her dog of 14 years. Respiratory Status: Room air EXPRESSIVE LANGUAGE: Functional as evidenced by reciprocal participation in conversation without anomia or paraphasia. RECEPTIVE LANGUAGE: Functional as evidenced by reciprocal participation in conversation with appropriate responses, intact command following and accurate Y/N responses. READING: Did not assess WRITING: Did not assess SOCIAL INTERACTION/PRAGMATICS: Impaired Task: Initiates Conversation Intact Takes Turns in Communication Intact Maintains Eye Contact (distractible) Maintains Topic (tangential) Shifts Topics Appropriately (redirectable) Affect (labile (mild, though may be appropriate given recent passing of her dog)) Responds Appropriately to Questions Functional COGNITION: Impaired Task: Arousal/Alertness Appropriate responses to stimuli Orientation Level Oriented X4 Safety Judgment Decreased awareness of need for safety Awareness of Errors Assistance required to identify errors made Deficits Decreased awareness of deficits Attention Span Attends with cues to redirect Memory Decreased short term memory Problem Solving Assistance required to identify errors made Cognition Comments Relatively functional for basic tasks. however, difficulty grasping higher levelconcepts (i.e. why it may be unsafe to return to driving with left hemiparesis and mild inattention) CRANIAL NERVE EXAMINATION: Cranial Nerve Exam CN V (Trigeminal) equal sensation on forehead, cheeks, and jaw CN VII (Facial) unilateral or bilateral weakness of upper or lower face or both CN IX (glossopharyngeal) voice quality strong and clear CN X (Vagus) uvula is midline CN XI (Accessory) weak or unequal shoulder shrug CN XII (Hypoglossal) (mild deviation to left) MOTOR SPEECH TASKS: Functional VOCAL PARAMETERS: Functional Subjective Voice Evaluation Grade of dysphonia (G): 0 Roughness (R): 0 Breathiness (B): 0 Asthenia (A): 0 Strain (S): 0 FREIGHT LOADING SUPERVISOR Outcomes: The Orientation Log (O-Log) is designed to be a quick quantitative measure of orientational status for use at bedside with rehabilitation inpatients. Place, time, and situational (Etiology/Event + Pathology/Deficits) domains are assessed. Patient responses are scored according to the following criteria: 3 = correct spontaneously or upon first free recall attempt; 2 = correct upon logical cueing (e.g., That was yesterday, so today must be ); 1 = correct upon multiple choice or phonemic cuing; and 0 = incorrect despite cueing, inappropriate response, or unable to respond. Patient scored TotalScore: this date. The Cognitive Log (Cog-Log) is designed to be a quick quantitative measure of cognition for use at bedside with rehabilitation patients. It is intended for individuals who have achieved consistent accurate orientation, such as measured by the Orientation Log (O-Log). The Cog-Log can be used to document cognitive progress on a daily basis, in the areas of immediate memory, reasoning, thought organization and attention. All items are scored from 0 to 3 for a total possible score of 30, which can be graphed for quick reference. Patient scored Total Score: this date. Acute FREIGHT LOADING SUPERVISOR Goals Plan of Care by Alexandria Del Valle FREIGHT LOADING SUPERVISOR at 05/22/2022 9:44 AM Version 1 of 1 Problem: FREIGHT LOADING SUPERVISOR - Cognition Goal: Memory Goal 2 Description: Patient will demonstrate understanding of x3 external or internal memory strategies with inconsistent minimal cues, across 1-2 sessions in order to facilitate improvements with memory for greater level of independence. 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 Outcome: Ongoing I used facemask, protective eye shield, and gloves in today's patient interaction. Speech Language Pathologist: SMOOTH Molina Time In: 08 Time Out: 0910 Total Visit Time: 25 minutes Total Treatment Time (skilled, billable minutes): 25 minutes Patient location at end of session: chair Alarms on at end of session: chair alarm Needs in reach. Upon discontinuation of Acute Care Speech Therapy Services or patient discharge from the hospital this note represents the current Speech Therapy Discharge Summary * Bradley Ruvalcaba, FLOOR LAYER-STEREOTYPE FINISHER - 05/22/2022 5:25 AM EDT NEUROVASCULAR STROKE SERVICE Daily Progress Note IDENTIFYING INFORMATION Brittani Sage MR# [id number] 05/22/2022 HISTORY OF PRESENT ILLNESS Brittani Sage is a 77 y.o. 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 She presented with left-sided upper and lower extremity weakness, left facial droop, dysarthria on 05/21/2022. Last known well was approximately 1330 on 05/21/22. At that time, the patient's friend noticed that she was unable to move her left upper extremity during lunch and had garbled speech. EMS was contacted and was subsequently transferred to their local emergency department. NIH stroke scale at that time was 2. CT head showed a right hyperdense sign consistent with right MCA occlusion. She was subsequently transferred to [facility] for additional care after receiving tPA at approximately 1428. She was admitted to [facility] for further workup. She was initially enrolled in the ENDOLOW trial and randomized to medical arm. She was noted to have worsening of her neurological exam at around 1800 on 05/21, her NIH scale increased by approximately 11 points at that time. Neurosurgery was notified and she was emergently taken to OR for RM1 thrombectomy with TICI 3 revascularization. She was admitted to [facility] for post operative management. INTERVAL HISTORY 05/22 [facility] care post thrombectomy, post tPA CTH this afternoon, transfer to [facility] PHYSICAL EXAM Gen: awake, alert, NAD HEENT: normocephalic, no scalp lesions or tenderness Neck: trachea midline No JVD CV: +S1S2, RRR, no m/r/g Lungs: LCTA bilaterally with equal chest rise Abd: soft, nontender, nondistended, +BS x4 quadrants Extrem: Warm and well perfused, no edema, 2+ pulses bilaterally Neuro: Mild dysarthria, Oriented x4, AGUIAR x 4, sensation intact and equal bilaterally to light touch CN II - All visual diaz intact CN II/III - PERRLA CN III/IV/ - EOMI CN V - Light touch to face intact in V1-3 CN VII - L facial droop CN VIII - Hearing intact CN X - Cough present CN XI - muscular movement of shoulders and sternocleidomastoid muscles intact and equal bilaterally CN XII - midline protrusion of tongue MOTOR EXAMINATION: LUE drift NIHSS 05/22/2022 Provider NIH Stroke Scale NIH Interval (Provider): daily NIH Level of Conciousness (Provider): 0 NIH LOC Questions (Provider): 0 NIH LOC Commands (Provider): 0 NIH Best Gaze (Provider): 0 NIH Visual (Provider): 0 NIH Facial Palsy (Provider): 1 NIH Left Arm Motor (Provider): 1 NIH Right Arm Motor (Provider): 0 NIH Left Leg Motor (Provider): 0 NIH Right Leg Motor (Provider): 0 NIH Limb Ataxia (Provider): 0 NIH Sensory (Provider): 0 NIH Best Language (Provider): 0 NIH Dysarthria (Provider): 1 NIH Extinction and Inattention (Provider): 0 NIH Total Score (Provider): 3 ASSESSMENT AND PLAN Neuro: acute R MCA stroke, R M1 occlusion, s/p MT with TICI 3 revasc CTH stroke: No acute hemorrhage or mass effect. CTA brain/neck: Right M1 segment occlusion with distal reconstitution. The other intracranial vessels are patent. CTH 24hr post tPA: PENDING MRI brain: PENDING TTE: PENDING -Stroke Etiology (TOAST Criteria): work up PENDING -Antiplatelet plan: held post tPA -Statin therapy: TBD -Blood Pressure goal: SBP < 160 post thrombectomy Ischemic Stroke Core Measures -NIHSS on admission 4 -Patient has been started on Mechanical (SCD's). Pharmacological (SQ heparin/Lovenox) DVT prophylaxis held post tPA. -Antiplatelet therapy has been held post tPA. -Anticoagulation therapy was not indicated for this patient. -Patients LDL P and HgbA1c P were checked and the patient will be discharged on Atorvastatin daily. -Dysphagia screening ordered, and will be completed prior to patient receiving oral intake. -Stroke education booklet has been ordered and will be provided by the RN that includes both written and verbal education to the patient and family regarding ischemic strokes. We have reviewed the patient's personal modifiable risk factors including: HTN, DM as well as education on reducing these risk factors -Patient is being assessed for Rehab by PT/OT/Speech and PM&R if indicated. Disposition: Brittani Sage will likely be discharged to D. Bradley Ruvalcaba APRN-STEREOTYPE FINISHER 05/22/2022 10:35 AM VITAL SIGNS Temp: [97.5 F (36.4 C)-98.1 F (36.7 C)] 98.1 F (36.7 C) Pulse (Heart Rate): [58-72] 68 Resp Rate: [12-31] 20 BP: (107-206)/(49-83) 118/57 O2 Sat (%): [90 %-98 %] 94 % Weight: [98.7 kg (217 lb 9.5 oz)] 98.7 kg (217 lb 9.5 oz) Oxygen Therapy: Oxygen Therapy O2 Sat (%): 94 % O2 Device: room air Flow (L/min): 2 Intake/Output: Intake/Output Summary (Last 24 hours) at 05/22/2022 1035 Last data filed at 05/22/2022 1000 Gross per 24 hour Intake 2239.77 ml Output 680 ml Net 1559.77 ml LABS/CULTURES Lab Results Component Value Date WBC 9.03 05/22/2022 HGB 12.5 05/22/2022 HCT 38.6 05/22/2022 PLATELET 210 05/22/2022 MCV 91.7 05/22/2022 Lab Results Component Value Date SODIUM 143 05/22/2022 POTASSIUM 3.9 05/22/2022 CHLORIDE 109 (H) 05/22/2022 CO2 23 05/22/2022 BUN 17 05/22/2022 CREATSERUM 0.78 05/22/2022 GLUCOSE 121 (H) 05/22/2022 Lab Results Component Value Date CHOLESTEROL 133 05/22/2022 TRIG 105 05/22/2022 HDL 49 05/22/2022 LDLCALC 63 05/22/2022 Lab Results Component Value Date HGBA1C 5.8 (H) 05/22/2022 Lab Results Component Value Date ALBUMIN 3.3 (L) 05/21/2022 , No results found for: CPK, TROP IMAGING/DIAGNOSTIC STUDIES MEDICATIONS insulin regular Subcutaneous Q6H senna 8.6 mg Oral Daily Or senna 8.6 mg Per NG tube Daily * MUKUND Horvath - 05/21/2022 9:00 PM EDT NEUROCRITICAL CARE DAILY NOTE HOSPITAL VISIT DEMOGRAPHICS Patient: Brittani Sage Code status: Full Code Admission date: 05/21/2022 3:53 PM Hospital days: LOS: 1 day HISTORY OF PRESENT ILLNESS Brittani Sage is a 77 y.o. 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 She presented with left-sided upper and lower extremity weakness, left facial droop, dysarthria on 05/21/2022. Last known well was approximately 13:30 earlier in the dya. At that time, the patient's friend noticed that she was unable to move her left upper extremity during lunch and had garbled speech. EMS was contacted and was subsequently transferred to their local emergency department. NIH stroke scale at that time was 2. CT head showed a right hyperdense sign consistent with right MCA occlusion. She was subsequently transferred to [facility] for additional care after obtaining tPA at approximately 2:28 p.m. She was admitted to [facility] for further workup. She was noted to have worsening of her neurological exam at around 1800 on 05/21, her NIH scale increased by approximately 11 points at that time. Neurosurgery was notified and she was emergently taken to OR for RM1 thrombectomy with TICI 3 revascularization. She was admitted to [facility] for post operative management. INTERVAL HISTORY SINCE ADMISSION 05/21/2022: Admit [facility] s/p TPA, worsening NIH with subsequent thrombectomy PHYSICAL EXAM GENERAL: Alert, no acute distress HEENT: normocephalic, no scalp wounds nor lesions CARDIO: +S1S2, RRR, no m/r/g, no edema PULM: clear to auscultation bilaterally, equal chest rise ABDOMINAL: soft, nontender, nondistended, active bowel sounds EXTREMITIES: no wounds or lesions VASCULAR: 2+ distal pulses, capillary refill <3 seconds NEURO: Alert, oriented to person place time. Eyes open spont, right gaze preference but can cross midline, visual diaz grossly intact. Left facial droop. Mild dysarthria, tongue midline. Follows commands in all 4 extremities. RUE 5/5, LUE with drift but holds x 10 seconds, LLE with drift but holds x 5 seconds, RLE flat s/p thrombectomy but with good plantar / dorsiflexion. - Daily NIHSS: NIH Stroke Scale: NIH Level of Conciousness (Provider): 0 NIH LOC Questions (Provider): 0 NIH LOC Commands (Provider): 0 NIH Best Gaze (Provider): 1 NIH Visual (Provider): 0 NIH Facial Palsy (Provider): 1 NIH Left Arm Motor (Provider): 1 NIH Right Arm Motor (Provider): 0 NIH Left Leg Motor (Provider): 2 NIH Right Leg Motor (Provider): 0 NIH Limb Ataxia (Provider): 0 NIH Sensory (Provider): 0 NIH Best Language (Provider): 0 NIH Dysarthria (Provider): 1 NIH Extinction and Inattention (Provider): 0 NIH Total Score (Provider): 6 ASSESSMENT AND PLAN Neuro: (05/21/2022) 1 Day Post-Op s/p RM1 thrombectomy with TICI 3 revascularization (05/21) Acute RM1 CVA Acute Cytotoxic Cerebral Edema - Initial CVA Management: - 05/22 1428 tPA given - s/p thrombectomy TICI 3 - Ongoing CVA management: - Monitor neurostatus with neurochecks Q1H - Prevent cerebral hypoperfusion with goal SBP <160 (see cards) - Imaging: - 05/21 initial CTH: Dense R MCA sign - 05/21 CTA: RM1 occlusion, 1.3 cm R thyroid nodule - MRI B: Pending - 24 hr post TPA CTH: Pending - antiplatelet therapy: Defer until after 24 hour scan Recent Labs 05/21/22 1603 05/22/22 0011 SODIUM 140 143 OSMOLALITY 299 301 CHLORIDE 109* 109* - Stroke etiology presumed to be unknown based on the TOAST Criteria. Stroke risk factors include hypercholesterolemia and hypertension. - Complete TTE (see cards) - Obtain LDL level and statin therapy if indicated (see cards) - Obtain HA1C level (see endo) - Initiate antiplatelet therapy within 48H of admission (see cards) - Initiate VTE prophylaxis immediately if no tPA given or 24H post-thrombectomy if performed (see heme) - Develop therapeutic anticoagulation plan, if indicated based on CVA etiology (see cards) - Consider urine drug screen on admission if no stroke risk factors - Consider hypercoagulability panel 24H-post tPA if no stroke risk factors - Pain/Sedation management - Tylenol 650mg Q4H PRN Psych: Anxiety - Per family she takes an antidepressant unsure which one Pulm: CLAIRE O2 Sat (%): 96 % (05/22 115) O2 Device: room air (05/21 2045) - Goal SpO2 >92%; wean FiO2 as tolerated - - - Per family pt has CPAP but refuses to wear at home Cards: HTN HLD Temp: [97.5 F (36.4 C)-98 F (36.7 C)] 98 F (36.7 C) Pulse (Heart Rate): [58-69] 62 Resp Rate: [12-31] 15 BP: (112-206)/(55-83) 121/57 O2 Sat (%): [93 %-98 %] 96 % Weight: [98.7 kg (217 lb 9.5 oz)] 98.7 kg (217 lb 9.5 oz) - Goal SBP <160, MAP >65 - Home antihypertensives: Unknown (possibly lisinopril per family) - PRN labetalol and hydralazine - TTE: P - 05/21 troponin: Pending - 05/21 ECG: NSR QTc 462 - LDL 63 statin therapy not indicated unless she takes one at home Recent Labs 05/22/22 0011 CHOLESTEROL 133 TRIG 105 HDL 49 Renal/: No Current Issues - Fluid Balance: - Goal: euvolemia - Net P mL/24H, P mL/admission - UOP P mL/24H - Continue khan (indication: OR) - Maintenance: 0.9NS @ 75mL/hr - Daily Chem 10; electrolytes replaced per [facility] protocol Recent Labs 05/21/22 1603 05/22/22 0011 SODIUM 140 143 POTASSIUM 4.0 3.9 CHLORIDE 109* 109* CO2 26 23 BUN 22 17 CREATSERUM 0.92 0.78 MAGNESIUM 1.8 1.7 PHOSPHORUS 3.3 4.0 ICA -- 4.15* GI/Nutrition: GERD Recent Labs 05/21/22 1603 ALBUMIN 3.3* BILIDIRECT <0.1 BILITOTAL 0.5 ALKPHOS 75 ALT 15 AST 24 TP 5.9* - DIET REGULAR AAT - [place] Swallow Screening Result: passed=cleared for oral intake - Consult nutrition for malnutrition screening - Bowel regimen: - - Senna, miralax Endo: Prediabetes - Goal blood glucose 140-180 Recent Labs 05/21/22 1600 05/21/22 1603 05/22/22 0011 GLUCOSE 136* 149* 121* - Insulin SSI: regular Q6H - A1C Pending ID: No Current Issues Recent Labs 05/21/22 1603 05/22/22 0011 WBC 10.42 9.03 - Temp (24hrs), Av.8 F (36.6 C), Min:97.5 F (36.4 C), Max:98 F (36.7 C) - PRN Tylenol for T>100.4F - Most recent and positive cultures: Date Collected Source Result Date Finalized - Antiinfectives: Start Date Antiinfective Coverage Course Length Stop Date Heme/Onc: Hx DCIS s/p lumpectomy Recent Labs 05/21/22 1603 05/21/22 1636 05/22/22 0011 WBC 10.42 -- 9.03 RBC 4.15 -- 4.21 HGB 12.5 -- 12.5 HCT 38.4 -- 38.6 PLATELET 201 -- 210 PT 14.3* -- -- PTT 26.6 -- -- INR 1.1 -- -- FIBRINOGEN -- 277 291 - Goal plt >100, INR <1.4, Hgb >7 - OR EBL: Minimal - Initiate chemical DVT ppx after [address] scan - hold home tamoxifen Musc: No Current Issues - PT/OT consulted and following - Current Activity Order: AAT Social/Dispo: - Code status: Full Code - Primary Emergency Contact: Mariposa Sage - HCPOA/LNOK: - 05/21: Last updated daughter and son at bedside - Medications reconciliation pending. Family is unsure of med list may need to call pharmacy in the for fill history - Discharge planning per PCRM/SW. ICU Checklist: [ ] CAM-ICU [ ] ICU Diary not indicated [ ] SAT [ ] SBT [ x] DVT ppx; [x ] SCDs; [ ] Lovenox, [ ] heparin [ ] Stress ulcer prophylaxis: Not indicated - Lines/Tubes: PIVs Brittani Sage remained in the neurocritical care unit overnight requiring frequent neurochecks, strict BP control and monitoring, follow up on imaging, strict I&Os, pain management, and monitoring for neurologic decline. Greater the 50% of my time today was spent in counseling and/or coordination of care for this patient. I have spent a total of 30 minutes with this patient. MUKUND Horvath Service pager: [phone] Service [place] #: [id number] (Beds [id number] and beds), [place] #: [id number] (Beds [id number] 1053 and [facility] beds) 05/22/22 1:42 AM [facility]* Plan of Care - Massiel Cochran OT - 05/24/2022 11:22 AM EDT Problem: OT - ADLs Goal: Grooming Description: Pt will complete grooming in standing with modified independence for improved ability to safely complete ADLs. Outcome: Completed Goal: Feeding Description: Pt will perform self-feeding task while seated with modified independence to promote success and safety during daily routine. Outcome: Completed Problem: OT - Endurance Goal: Endurance Functional Task Standing Description: Pt will engage in standing functional task for 10 minutes with supervision to improve activity tolerance necessary for safe ADL completion at recommended discharge destination. Outcome: Completed Problem: OT - Transfers Goal: Transfers Toilet/Bedside Commode Description: Pt will transfer to/from toilet/BSC with modified independence for improved ability tosafely complete ADLs. Outcome: Completed Problem: OT - Strength/ROM Goal: Strength/ROM ADL Participation Description: Pt will demonstrate independence with UE exercise program to prevent deconditioning while in the hospital and to maximize UE ROM/coordination/strength for ADL participation. Outcome: Completed [facility]07-26-2022 Miscellaneous Notes* Plan of Care - Massiel Cochran OT - 05/24/2022 11:22 AM EDT Problem: OT - ADLs Goal: Grooming Description: Pt will complete grooming in standing with modified independence for improved ability to safely complete ADLs. Outcome: Completed Goal: Feeding Description: Pt will perform self-feeding task while seated with modified independence to promote success and safety during daily routine. Outcome: Completed Problem: OT - Endurance Goal: Endurance Functional Task Standing Description: Pt will engage in standing functional task for 10 minutes with supervision to improve activity tolerance necessary for safe ADL completion at recommended discharge destination. Outcome: Completed Problem: OT - Transfers Goal: Transfers Toilet/Bedside Commode Description: Pt will transfer to/from toilet/BSC with modified independence for improved ability tosafely complete ADLs. Outcome: Completed Problem: OT - Strength/ROM Goal: Strength/ROM ADL Participation Description: Pt will demonstrate independence with UE exercise program to prevent deconditioning while in the hospital and to maximize UE ROM/coordination/strength for ADL participation. Outcome: Completed * Plan of Care - Leonor Perea RN - 05/23/2022 3:52 PM EDT Problem: Patient Care Overview Goal: Plan of Care Review Outcome: Ongoing Goal: Individualization & Mutuality Outcome: Ongoing Goal: Discharge Needs Assessment Outcome: Ongoing Goal: Interdisciplinary Rounds/Family Conf Outcome: Not Met This Shift Problem: Stroke (Ischemic) (Adult) Goal: Signs and Symptoms of Listed Potential Problems Will be Absent, Minimized or Managed (Stroke) Description: Signs and symptoms of listed potential problems will be absent, minimized or managed by discharge/transition of care (reference Stroke (Ischemic) (Adult) CPG). Outcome: Ongoing Problem: Thrombolytic Therapy (Adult) Goal: Signs and Symptoms of Listed Potential Problems Will be Absent, Minimized or Managed (Thrombolytic Therapy) Description: Signs and symptoms of listed potential problems will be absent, minimized or managed by discharge/transition of care (reference Thrombolytic Therapy (Adult) CPG). Outcome: Completed * Plan of Care - Lorenzo Pettit PT - 05/23/2022 2:12 PM EDT Problem: PT - Mobility Goal: Ambulation Description: Pt will ambulate 250 feet with least restrictive device with modified independence to improve ability to navigate home environment. Outcome: Progressing Toward Goal Goal: Stairs Description: Pt will ascend/descend 5 stairs with unilateral railings with modified independence with least restrictive device to improve ability to perform functional mobility necessary in recommended discharge environment. Outcome: Progressing Toward Goal Problem: PT - Transfers Goal: Sit <-> Stand Description: Pt will perform sit to/from stand transfers with modified independence with least restrictive device in order to improve functional mobility and safety. Outcome: Progressing Toward Goal Goal: Strength/ROM Description: pt will be independent and compliant with therapeutic exercise program Outcome: Progressing Toward Goal * Plan of Care - Su Villatoro RD - 05/23/2022 12:06 PM EDT Problem: Nutrition, Imbalanced: Inadequate Oral Intake (Adult) Goal: Identify Related Risk Factors and Signs and Symptoms Description: Related risk factors and signs and symptoms are identified upon initiation of Human Response Clinical Practice Guideline (CPG) Outcome: Ongoing Note: Nutrition Recommendations and Plan of Care: 1. Continue regular diet at this time. Consider FREIGHT LOADING SUPERVISOR consult for swallow evaluation as appropriate. 2. Monitor PO intake, bowel function, skin integrity, weight change, lab values. 3. RD to follow. * Plan of Care - Viola Florentino RN - 05/23/2022 12:14 AM EDT Problem: Patient Care Overview Goal: Plan of Care Review Outcome: Ongoing Goal: Individualization & Mutuality Outcome: Ongoing Goal: Discharge Needs Assessment Outcome: Ongoing Goal: Interdisciplinary Rounds/Family Conf Outcome: Ongoing Problem: Dysphagia (Adult) Goal: Identify Related Risk Factors and Signs and Symptoms Description: Related risk factors and signs and symptoms are identified upon initiation of Human Response Clinical Practice Guideline (CPG) Outcome: Ongoing Goal: Functional/Safe Swallow Description: Patient will demonstrate the desired outcomes by discharge/transition of care. Outcome: Ongoing Goal: Compensatory Techniques to Improve Safety/Function with Swallowing Description: Patient will demonstrate the desired outcomes by discharge/transition of care. Outcome: Ongoing Problem: Stroke (Ischemic) (Adult) Goal: Signs and Symptoms of Listed Potential Problems Will be Absent, Minimized or Managed (Stroke) Description: Signs and symptoms of listed potential problems will be absent, minimized or managed by discharge/transition of care (reference Stroke (Ischemic) (Adult) CPG). Outcome: Ongoing Problem: Thrombolytic Therapy (Adult) Goal: Signs and Symptoms of Listed Potential Problems Will be Absent, Minimized or Managed (Thrombolytic Therapy) Description: Signs and symptoms of listed potential problems will be absent, minimized or managed by discharge/transition of care (reference Thrombolytic Therapy (Adult) CPG). Outcome: Ongoing Problem: FREIGHT LOADING SUPERVISOR - Cognition Goal: Memory Goal 2 Description: Patient will demonstrate understanding of x3 external or internal memory strategies with inconsistent minimal cues, across 1-2 sessions in order to facilitate improvements with memory for greater level of independence. 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 Outcome: Ongoing Problem: PT - Mobility Goal: Ambulation Description: Pt will ambulate 250 feet with least restrictive device with modified independence to improve ability to navigate home environment. Outcome: Ongoing Goal: Stairs Description: Pt will ascend/descend 5 stairs with unilateral railings with modified independence with least restrictive device to improve ability to perform functional mobility necessary in recommended discharge environment. Outcome: Ongoing Problem: PT - Transfers Goal: Supine <-> Sit Description: Pt will perform bed mobility with flat bed & no rail with independence in order toimprove functional mobility and safety. Outcome: Ongoing Goal: Sit <-> Stand Description: Pt will perform sit to/from stand transfers with modified independence with least restrictive device in order to improve functional mobility and safety. Outcome: Ongoing Goal: Strength/ROM Description: pt will be independent and compliant with therapeutic exercise program Outcome: Ongoing Problem: OT - Dressing Goal: Lower Body Dressing Description: Pt will complete LE dressing tasks with modified independence for improved ability to complete self-care activities. Outcome: Ongoing Problem: OT - ADLs Goal: Grooming Description: Pt will complete grooming in standing with modified independence for improved ability to safely complete ADLs. Outcome: Ongoing Goal: Toileting Description: Pt will complete toileting task including clothing management with modified independence for improved ability to safely complete self-care activities. Outcome: Ongoing Goal: Feeding Description: Pt will perform self-feeding task while seated with modified independence to promote success and safety during daily routine. Outcome: Ongoing Problem: OT - Cognition Goal: Cognition Home Maintenance Description: Pt will complete simulated home maintenance task (medication management, finance management, etc.) with modified independence to promote safety and success at discharge destination. Outcome: Ongoing Problem: OT - Endurance Goal: Endurance Functional Task Standing Description: Pt will engage in standing functional task for 10 minutes with supervision to improve activity tolerance necessary for safe ADL completion at recommended discharge destination. Outcome: Ongoing Problem: OT - Transfers Goal: Transfers Toilet/Bedside Commode Description: Pt will transfer to/from toilet/BSC with modified independence for improved ability tosafely complete ADLs. Outcome: Ongoing Problem: OT - Strength/ROM Goal: Strength/ROM ADL Participation Description: Pt will demonstrate independence with UE exercise program to prevent deconditioning while in the hospital and to maximize UE ROM/coordination/strength for ADL participation. Outcome: Ongoing * Plan of Care - Rajani Carmona APRN-STEREOTYPE FINISHER - 05/22/2022 4:20 PM EDT CAM-ICU feature Instructions Range Result 24-hour RASS range Record the lowest RASS over the last 24 hours -5 to +4 0 Record the highest RASS over the last 24 hours -5 to +4 0 #1: Acute change from baseline or fluctuating course of mental status Is the RASS different than baseline OR Fluctuating over the past 24 hours, based on RASS? Yes/No No #2: Inattention Squeeze hand for letter A, record # of errors out of 10 SAVEAHAART, CASABLANCA, or ABADABADAY 0 to 10 0 #3: Altered LOC Record the current RASS -5 to +4 0 #4a: Disorganized thinking (questions) In response to the four questions, record the number of errors 1. Will a stone float on water? 2. Are there fish in the sea? 3. Does one pound weight more than two? 4. Can you use a hammer to pound a nail? 0 to 4 0 #4b: Disorganized thinking (commands) 2-step command, record the number errors Hold up this many fingers (hold up 2) Add one more finger (don't demonstrate) 0 to 1 0 Receptive aphasia Does pt. have receptive aphasia that impairs their ability to perform the above? Yes/No No MUKUND Jackson * Plan of Care - Chandu Rodriguez, PT - 05/22/2022 1:57 PM EDT Problem: PT - Mobility Goal: Ambulation Description: Pt will ambulate 250 feet with least restrictive device with modified independence to improve ability to navigate home environment. Outcome: Ongoing Goal: Stairs Description: Pt will ascend/descend 5 stairs with unilateral railings with modified independence with least restrictive device to improve ability to perform functional mobility necessary in recommended discharge environment. Outcome: Ongoing Problem: PT - Transfers Goal: Supine <-> Sit Description: Pt will perform bed mobility with flat bed & no rail with independence in order toimprove functional mobility and safety. Outcome: Ongoing Goal: Sit <-> Stand Description: Pt will perform sit to/from stand transfers with modified independence with least restrictive device in order to improve functional mobility and safety. Outcome: Ongoing Goal: Strength/ROM Description: pt will be independent and compliant with therapeutic exercise program Outcome: Ongoing * Plan of Care - Annabelle Dalal OT - 05/22/2022 10:34 AM EDT Problem: OT - Dressing Goal: Lower Body Dressing Description: Pt will complete LE dressing tasks with modified independence for improved ability to complete self-care activities. Outcome: Ongoing Problem: OT - ADLs Goal: Grooming Description: Pt will complete grooming in standing with modified independence for improved ability to safely complete ADLs. Outcome: Ongoing Goal: Toileting Description: Pt will complete toileting task including clothing management with modified independence for improved ability to safely complete self-care activities. Outcome: Ongoing Goal: Feeding Description: Pt will perform self-feeding task while seated with modified independence to promote success and safety during daily routine. Outcome: Ongoing Problem: OT - Cognition Goal: Cognition Home Maintenance Description: Pt will complete simulated home maintenance task (medication management, finance management, etc.) with modified independence to promote safety and success at discharge destination. Outcome: Ongoing Problem: OT - Endurance Goal: Endurance Functional Task Standing Description: Pt will engage in standing functional task for 10 minutes with supervision to improve activity tolerance necessary for safe ADL completion at recommended discharge destination. Outcome: Ongoing Problem: OT - Transfers Goal: Transfers Toilet/Bedside Commode Description: Pt will transfer to/from toilet/BSC with modified independence for improved ability tosafely complete ADLs. Outcome: Ongoing Problem: OT - Strength/ROM Goal: Strength/ROM ADL Participation Description: Pt will demonstrate independence with UE exercise program to prevent deconditioning while in the hospital and to maximize UE ROM/coordination/strength for ADL participation. Outcome: Ongoing * Plan of Care - SMOOTH Molina - 05/22/2022 9:44 AM EDT Problem: FREIGHT LOADING SUPERVISOR - Cognition Goal: Memory Goal 2 Description: Patient will demonstrate understanding of x3 external or internal memory strategies with inconsistent minimal cues, across 1-2 sessions in order to facilitate improvements with memory for greater level of independence. 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 Outcome: Ongoing * Plan of Care - MUKUND Horvath - 05/21/2022 10:16 PM EDT CAM-ICU feature Instructions Range Result 24-hour RASS range Record the lowest RASS over the last 24 hours -5 to +4 0 Record the highest RASS over the last 24 hours -5 to +4 0 #1: Acute change from baseline or fluctuating course of mental status Is the RASS different than baseline OR Fluctuating over the past 24 hours, based on RASS? Yes/No No #2: Inattention Squeeze hand for letter A, record # of errors out of 10 SAVEAHAART, CASABLANCA, or ABADABADAY 0 to 10 0 #3: Altered LOC Record the current RASS -5 to +4 0 #4a: Disorganized thinking (questions) In response to the four questions, record the number of errors 1. Will a stone float on water? 2. Are there fish in the sea? 3. Does one pound weight more than two? 4. Can you use a hammer to pound a nail? 0 to 4 0 #4b: Disorganized thinking (commands) 2-step command, record the number errors Hold up this many fingers (hold up 2) Add one more finger (don't demonstrate) 0 to 1 0 Receptive aphasia Does pt. have receptive aphasia that impairs their ability to perform the above? Yes/No No MUKUND Horvath * Op Note - Cody Peter MD - 05/21/2022 9:00 PM EDT DATE OF PROCEDURE: 05/21/2022 PREOPERATIVE DIAGNOSIS: Ischemic stroke, right M1 occlusion POSTOPERATIVE DIAGNOSIS: Ischemic stroke, right M1 occlusion PROCEDURE PERFORMED: Mechanical thrombectomy, right M1 occlusion CLINICAL INDICATION: Brittani Sage is a 77 y.o. female who presented originally from an outside facility with stroke like symptoms and findings of a large vessel occlusion on CTA. She was given tPA. Upon arrival to [facility] she had a NIHSS of 4. She originally was not a candidate for thrombectomy but her NIHSS worsened to 13 and the decision was made to take her to surgery for mechanical thrombectomy SURGEON: Kevin Harvey MD TOBACCO STRIPPER: Cody Peter MD ANESTHESIA: Local anesthetic in right groin. MAC provided by anesthesia provider. Pre-, intra-, andpost-anesthesia monitoring records are available in the chart. CONTRAST: 100 cc PROCEDURE IN DETAIL: Prior to the procedure, the technical aspects of the procedure, as well as potential risks and benefits, were explained to the patient. Specifically, the risks of cerebral infarction, hemorrhage, blindness, cranial nerve palsy, facial pain, anaphylaxis, worsening of his preexisting renal failure, limb loss, , groin hematoma, arterial dissection, arterial pseudoaneurysm, and development of arteriovenous fistula were discussed. After informed written consent was obtained, the patient was brought to the angiography suite and positioned supine with pressure points padded appropriately. The right groin was prepped and draped in the usual fashion. Access to the right femoral artery was gained in the usual way with a micropunct ure kit. An 8 Ukrainian short sheath was introduced into the right femoral artery. An angiogram of theright femoral artery was then performed to ensure adequate sheath placement. The arch was too tortuous for the Berenstein select, so we then advanced the Pearl-2 select catheter within the .088 Tracstar over the wire and into the arch, then shaped it in the descending aorta. The catheter was thenadvanced in the right common carotid artery were we obtained cervical views of the carotid artery. Under roadmap guidance we advanced the select catheter over the wire into the right internal carotidartery and then advanced the TracStar guide up into the petrous ICA. The select catheter and Glidwire were withdrawn and baseline AP, lateral cerebral angiography was obtained. There was a right M1 occlusion seen. The Zoom 71 and Knowrom coaxial system were introduced into the guide catheter. We navigated the microwire and microcatheter past the occlusion and into the M2 branch and then navigated the Zoom 71 aspiration catheter up until it abutted the clot. Microcatheter and wire were removed and the aspiration tubing was hooked up to suction. After 3 minutes of engagement with the clot, we brought the aspiration tubing down. Follow up cerebral angiography was performed that demonstrated reperfusion of the MCA territory. We then removed the guide cathter and introduced the Select diagnostic catheter to complete the angiogram. Left common carotid was catheterized and cervical carotid angiography was performed. From the left common carotid we then performed cerebral angiography. The catheter was withdrawn from the carotid and advanced into the left vertebral artery. Cerebral angiography was performed. The catheter was then withdrawn. AP, lateral, oblique and magnified views were obtained. The catheter was withdrawn and right external carotid artery was selected with cerebral views obtained. The catheter was withdrawn into the arch and then advanced into the left common carotid artery where we obtained cervical angiography. The catheter was then advanced into the left ICA and we obtained cerebral angiography in AP, lateral, and oblique magnified views from the left ICA. The catheter was withdrawn and left external carotid artery catheterized with cerebral angiography obtained. The catheter was brought down into the arch and we selected the left vertebral artery. Cerebral angiography from the left vertebral artery was performed. At the conclusion of the procedure the diagnostic catheter was removed. A Mynx closure device was used to achieve hemostasis. Sterile dressing and a tegaderm were then applied over the puncture site. The patient tolerated the procedure well without apparent complications and transferred to NCCU in stable condition. COMPARISON: CTA from the same day FINDINGS: RIGHT COMMON CAROTID ARTERY, CERVICAL: Antegrade flow is seen through the common carotid artery andinto the internal and external carotid arteries. The carotid bulb is smooth without evidence of flow limiting stenosis or stenosis with respect to the distal ICA. There is normal opacification of right ECA branches. RIGHT INTERNAL CAROTID ARTERY, CEREBRAL: Antegrade flow seen through internal carotid artery and into the anterior cerebral artery. Right M1 occlusion is clearly seen. Large right pcomm is noted, andthere is flash fill across the acomm into the left A2. Post thrombectomy angiography reveals TICI 3reperfusion of the right MCA territory. No evidence of aneurysm or venous shunting. LEFT COMMON CAROTID ARTERY, CERVICAL: Antegrade flow is seen through the common carotid artery and into the internal and external carotid arteries. The carotid bulb is smooth without evidence of flowlimiting stenosis or stenosis with respect to the distal ICA. There is normal opacification of right ECA branches. LEFT COMMON CAROTID ARTERY, CEREBRAL: Antegrade flow seen through internal carotid artery and into the anterior and middle cerebral arteries. Normal cerebral perfusion through capillary phase. Small left posterior communicating artery. No evidence of aneurysm, arteriovenous shunting, or focal stenosis. ECA branches show normal opacification without venous shunting. LEFT VERTEBRAL ARTERY, CEREBRAL: Antegrade flow is seen through the left vertebral artery with reflux into the right vertebral artery to opacify the contralateral PICA. Antegrade flow seen through the vertebrobasilar system with normal cerebral perfusion through the capillary and venous phases. Right OPERATIONS LIEUTENANT territory does not fill from vertebrobasilar system consistent with OPERATIONS LIEUTENANT seen on right ICA injections. There is no evidence of aneurysm, focal stenosis, or early draining vein. Both PICA'sdemonstrate normal takeoffs from the distal ipsilateral vertebral arteries. RIGHT COMMON FEMORAL ARTERY: No abnormalities are detected. This artery is appropriate for use of the mynx closure device. COMPLICATIONS: None immediate. IMPRESSION: 1. 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 No carotid occlusive disease 3. Cerebral vasculature without evidence of aneurysm or arteriovenous shunting. Dr. Harvey was present for and participated in the entire procedure Associated attestation - Kevin Harvey MD - 05/23/2022 10:17 AM EDT Agree with above as written. I was present for the entire procedure. * Brief Op Note - Cody Peter MD - 05/21/2022 8:38 PM EDT Brittanicaesar Sage ([id number]) PRE OPERATIVE DIAGNOSIS CVA (cerebral vascular accident) [I63.9] POST OPERATIVE DIAGNOSIS Post-Op Diagnosis Codes: * CVA (cerebral vascular accident) [I63.9] PROCEDURE PERFORMED Procedure(s) (LRB): THROMBECTOMY FOR STROKE (Right) PRIMARY CLOSURE Mynx Closure Device INTRAOPERATIVE FINDINGS right M1 occlusion SURGEON Surgeon(s) and Role: * Kevin Harvey MD - Primary * Cody Peter MD - Fellow ANESTHESIOLOGIST Anesthesiologist: Humaira Mcmullen MD; Isacc Bustillo MD Commercial Escrow Officer Assisting: Lewis Stone MD; Akosua Sanz MD SURGICAL STAFF [employer] Sales Consultant: Nevaeh Neil RN Relief Nissan Sales Consultant: Mason Tena RN Relief Scrub: Markell Ramos RN Resident Assisting: Herbie Robledo Jr., MD COMPLICATIONS None ESTIMATED BLOOD LOSS Minimal SPECIMENS No specimen sent * No specimens in log * Cody Peter MD May 21, 2022 8:38 PM I, Kevin Harvey MD., saw and evaluated the patient. Case was discussed with the Housestaff. I personally performed the lloyd portions of the history and the physical examination and I agree with thefindings, assessment and plan. I edited the documentation as necessary. * Significant Event - Kortney Smiley MD - 05/21/2022 7:11 PM EDT NEUROVASCULAR BRIEF NOTE Paged about increase in NIHSS from 4 to 16. Briefly, 77 y.o. female with unknown PMH who presents as a transfer from an outside hospital as a level 1 stroke alert. LWK 1330. Reports patient was eating lunch when friends noticed R sided facial droop, slurred speech, L sided weakness. Telestroked, s/p TPA at 1430. R M1 occlusion on OSH scan. On assessment, NIHSS 13 as below. Exam most notable for worsening L facial droop, L sided weakness,and extinction. Confirmed with patient, mRS 0. Repeat CTH without bleed per my read. Provider NIH Stroke Scale NIH Interval (Provider): daily NIH Level of Conciousness (Provider): 0 NIH LOC Questions (Provider): 0 NIH LOC Commands (Provider): 0 NIH Best Gaze (Provider): 1 NIH Visual (Provider): 0 NIH Facial Palsy (Provider): 2 NIH Left Arm Motor (Provider): 3 NIH Right Arm Motor (Provider): 0 NIH Left Leg Motor (Provider): 3 NIH Right Leg Motor (Provider): 0 NIH Limb Ataxia (Provider): 0 NIH Sensory (Provider): 1 NIH Best Language (Provider): 0 NIH Dysarthria (Provider): 1 NIH Extinction and Inattention (Provider): 2 NIH Total Score (Provider): 13 She is within 6 hours of LKW so deferred CTP. Updated NSGY STAT as she is a thrombectomy candidate. To OR emergently. Case discussed with Dr. Castellanos and Dr. Hernandez. Please call the Neurology resident concrete crusher loader operator if with additional questions Kortney Smiley MD PGY-3 Neurology [id number] * Nursing Notes - Chris Saini RN - 05/21/2022 6:15 PM EDT 1804:MD Sancho lovett. NIH increased by 11 and BP is 183/79 with no PRN meds available. awaiting response. * Research Note - Edwige Monson MD - 05/21/2022 4:00 PM EDT ENDOLOW research note The patient is a 77 year old female who was LKN 135p and developed left hemiparesis while eating lunch. Patient taken to OSH ER Viri and telestroke showed NIHSS 2. Patient received IVtPA at 228p CT brain negative, CT angiogram head/neck shows right MCA occlusion. On arrival NIHSS 4 CT brain negative for acute changes. ASPECT 10. CT angiogram head/neck shows right m1 occlusion. The patient was enrolled into ENDOLOW trial by research coordinator Vandana Hernandes. Patient randomized to medical arm. Edwige Monson [facility]* Plan of Care - Leonor Perea RN - 05/23/2022 3:52 PM EDT Problem: Patient Care Overview Goal: Plan of Care Review Outcome: Ongoing Goal: Individualization & Mutuality Outcome: Ongoing Goal: Discharge Needs Assessment Outcome: Ongoing Goal: Interdisciplinary Rounds/Family Conf Outcome: Not Met This Shift Problem: Stroke (Ischemic) (Adult) Goal: Signs and Symptoms of Listed Potential Problems Will be Absent, Minimized or Managed (Stroke) Description: Signs and symptoms of listed potential problems will be absent, minimized or managed by discharge/transition of care (reference Stroke (Ischemic) (Adult) CPG). Outcome: Ongoing Problem: Thrombolytic Therapy (Adult) Goal: Signs and Symptoms of Listed Potential Problems Will be Absent, Minimized or Managed (Thrombolytic Therapy) Description: Signs and symptoms of listed potential problems will be absent, minimized or managed by discharge/transition of care (reference Thrombolytic Therapy (Adult) CPG). Outcome: Completed [facility]07-25-2022 Hospital Discharge instructions* Discharge Instructions* Bradley Ruvalcaba APRN-STEREOTYPE FINISHER - 05/23/2022 3:17 PM EDT Please take these discharge instructions to your primary care doctor follow appointment to show them,keep them for your reference and refer to them often for follow up appointments.It is best to write your appointments on a personal calendar so you do not miss them,call if you need to change any appointments please. Education: What are the most common symptoms of stroke? The following are the most common symptoms of stroke. However, each individual may experience symptoms differently. If any of these symptoms are present, call 911 (or your local ambulance service) immediately. Treatment is most effective when started immediately. Symptoms may be sudden and include: -Weakness or numbness of the face, arm, or leg, especially on one side of the body -Confusion or difficulty speaking or understanding -Problems with vision such as dimness or loss of vision in one or both eyes -Dizziness or problems with balance or coordination -Problems with movement or walking -Severe headaches with no other known cause, especially if sudden onset All of the above warning signs may not occur with each stroke. Do not ignore any of the warning signs, even if they go away - take action immediately. The symptoms of stroke may resemble other medical conditions or problems. Always consult your physician for a diagnosis We have provided both written and verbal education to the patient and family regarding ischemic andhemorrhagic strokes. We have discussed the warning signs/symptoms as well as causes of stroke. We have discussed the importance of activating 911/EMS in the event of these symptoms. We have reviewed the patient's personal risk factors as well as education on reducing these risk factors. [facility] Personalized Stroke Treatment Plan My Stroke Type: [x] Ischemic Stroke (Blockage of blood flow to the brain) [] Hemorrhagic Stroke (Bleeding in the brain) [] TIA- Transient Ischemic Attack (mini-stroke) My Risk Factors Include: [x] High Blood Pressure [] Diabetes [] High Cholesterol [] Heart Disease [] Atrial Fibrillation (Irregular Heart Rate) [] Smoking [x] Obesity [] Clotting Disorder [] Alcohol Abuse [] Drug Abuse [] Prior History [] Family History [x] Obstructive Sleep Apnea My Follow-Up Treatment Goals: [x] Blood Pressure < 140/90 [] Stop Smoking Immediately [x] LDL < 70 [] HgA1C levels <7% [] Decrease BMI to <25 [x] Take all ordered medications [x] Avoid non-prescription or over the counter medication not cleared by your physician [x] Limit Alcohol use to no more than 1 drink per day for females and 2 drinks per day for males [] Do not drive until cleared [x] Follow up with PCP within a week of discharge to home [x] Follow-up with Neurovascular [x] Follow-up with Occupational,physical and speech therapy if ordered [x] Watch out for depression and seek treatment if needed CONTACTS FOR NEUROVASCULAR SERVICE: - You may call your neurovascular doctors office at [phone], if you have questions between 8:30 am and 4:30 pm. - For off hours or the weekend you may call the office or the hospital mincing machine operator at and ask for the stroke resident concrete crusher loader operator to be paged. - If you have any questions or needs, please call Xenia Campos RN, stroke programming director at [phone] Mon-Fri from - ? Any questions concerning your discharge instructions please call Case Management Office [phone] Patient Stroke Resources: OS Stroke Support The [facility] Stroke Support Group is for stroke survivors, friends, andfamily members. Meets every Monday from 12:00PM to 1:00PM at [facility] ([facility]), [address] [place] [address] Tabby Kelley, at [phone]. If you are outside of the [facility], contact The [place] at www.strokeassociation.org or 4-955-4-stroke, or for supports groups in your area. Also refer to the Stroke Education booklet you received as part of your stroke education while you were a patient for additional resources Additional Contacts: Evening and Weekend Contacts If you have questions or concerns during evening, weekend, or holiday hours, please call: -[facility] and [facility] mincing machine operator at [phone]. -[facility] mincing machine operator at [phone] Ask the mincing machine operator to page the on-call doctor for Neurovascular service, they were responsible for your care while you were in the hospital. If you having an emergency, call 911. *In the event of an Emergency: If you have a physical or psychiatric emergency call 911 or go to your local emergency department. You should also call your outpatient provider's emergency number. Other reference numbers: [facility] Intake Office at 535-553-6646; [employer] at 226-169-7286; or Suicide Prevention Hotline at 855-174-3885. *Helpful phone numbers: Free Crisis Hotline: 2-564-972-TALK ( ) Suicide Hotline: 990.874.5199 Seniors Suicide Hotline: 731.690.6736 [facility] Youth: 700.728.3457 Mental [facility] [place]: 980.123.4524 (free counseling) [facility] Access Hotline: 916-173-XMPT (441-128-4138) 24-hour crisis text hotline: Text the word 4hope to 983-513 for crisis support. Texting this number is free if you have Verizon, T-Mobile, AT[employer]T or Sprint. [facility] Financial Assistance: If you want to learn more about these programs, please call .There are three programsto help you with the cost of your medical care: Medicaid, Hospital Care Assurance Program (HCAP) & betito If you are without Insurance and believe you may qualify for Medicaid/public assistance: The [facility] Department of Job and Family Services can now process shay (TANF), food (SNAP) and Medicaid Applications over the phone. Please call [phone] ([phone]) and apply over the phone or apply online at www.benefits.[place].gov. Monday-Monday 8am-12pm noon. Medication Assistance Programs [employer] members can buy 100+ common prescriptions for FREE, $3 or $6. Annual membership is $36 for individuals and $72 for families (up to 6 people, including pets). Sign up online or enroll at your nearest pharmacy! -[employer], web site can provide a significant number of coupons for medications at a much lower burgos. * Medications* MUKUND Paniagua - 05/23/2022 3:10 PM EDT Know your medicines Make sure you know why you are taking each medicine. Make a master list of all your medicines. Write down the medicine names and doctors' names. Includedoses and side effects too. And write down why you take each medicine. Include all prescription dudrgla-ggl-odlrcgj medicines, vitamins, and supplements. Keep this list up to date. Take a copy to each doctor visit. Know when you will run out of each medicine. Ask your pharmacist if there are ways the drugstore can remind you to refill your medicines so you do not run out. Write refill reminders on your calendar. Don't wait until you have a few pills left. Ask your pharmacist to plan your refills so that you can nut picker all your medicines at the same time. This can mean fewer trips to the drugstore. If we have prescribed you a new medication during your stay, please contact with your primary physician for refills * Discharge Instr - Activity* MUKUND Paniagua - 05/23/2022 3:10 PM EDT Activity -- Please follow these instructions: -Advance your activity as you can tolerate - You may walk all you want. You may go up and down the steps. Use the railing for support - It is normal for your energy level and sleep patterns to change after a stroke - Take rest periods during the day as needed - Complete recovery may take several weeks, months, up to a year. Patience is lloyd. * Discharge Instr - Diet* MUKUND Paniagua - 05/23/2022 3:12 PM EDT Current Diet Orders Procedures DIET REGULAR Standing Status: Standing Number of Occurrences: 1 * Discharge Instr - Notify* MUKUND Paniagua - 05/23/2022 3:16 PM EDT Notify Your Doctor if you have any of the following: NEUROLOGICAL CHANGES-- Change in alertness Increased sleepiness Nausea and vomiting New onset of numbness or weakness in arms or legs New problems with your bowels or bladder New or worse problems with balance or walking Seizures, new or worsening UNRELIEVED HEADACHE PAIN-- New or increased pain unrelieved with pain medications Pain associated with nausea and vomiting Pain associated with other symptoms QUESTIONS OR PROBLEMS-- Any questions or problems that you are unsure about Deep Vein Thrombosis Symptoms Call your doctor or nurse right away if you have any signs of blood clots such as -Tender, swollen or reddened areas anywhere in your leg. -Numbness or tingling in your lower leg or calf, or at the top of your leg or groin -Skin on you leg looks pale or blue or feels cold to touch -Chest pain or have trouble breathing -Fever or chills documented in this [facility]07-25-2022 Note* Plan of Care - Lorenzo Pettit, PT - 05/23/2022 2:12 PM EDT Problem: PT - Mobility Goal: Ambulation Description: Pt will ambulate 250 feet with least restrictive device with modified independence to improve ability to navigate home environment. Outcome: Progressing Toward Goal Goal: Stairs Description: Pt will ascend/descend 5 stairs with unilateral railings with modified independence with least restrictive device to improve ability to perform functional mobility necessary in recommended discharge environment. Outcome: Progressing Toward Goal Problem: PT - Transfers Goal: Sit <-> Stand Description: Pt will perform sit to/from stand transfers with modified independence with least restrictive device in order to improve functional mobility and safety. Outcome: Progressing Toward Goal Goal: Strength/ROM Description: pt will be independent and compliant with therapeutic exercise program Outcome: Progressing Toward Goal [facility]07-25-2022 Note* Plan of Care - Su Villatoro RD - 05/23/2022 12:06 PM EDT Problem: Nutrition, Imbalanced: Inadequate Oral Intake (Adult) Goal: Identify Related Risk Factors and Signs and Symptoms Description: Related risk factors and signs and symptoms are identified upon initiation of Human Response Clinical Practice Guideline (CPG) Outcome: Ongoing Note: Nutrition Recommendations and Plan of Care: 1. Continue regular diet at this time. Consider FREIGHT LOADING SUPERVISOR consult for swallow evaluation as appropriate. 2. Monitor PO intake, bowel function, skin integrity, weight change, lab values. 3. RD to follow. [facility]07-25-2022 Note* Plan of Care - Viola Florentino RN - 05/23/2022 12:14 AM EDT Problem: Patient Care Overview Goal: Plan of Care Review Outcome: Ongoing Goal: Individualization & Mutuality Outcome: Ongoing Goal: Discharge Needs Assessment Outcome: Ongoing Goal: Interdisciplinary Rounds/Family Conf Outcome: Ongoing Problem: Dysphagia (Adult) Goal: Identify Related Risk Factors and Signs and Symptoms Description: Related risk factors and signs and symptoms are identified upon initiation of Human Response Clinical Practice Guideline (CPG) Outcome: Ongoing Goal: Functional/Safe Swallow Description: Patient will demonstrate the desired outcomes by discharge/transition of care. Outcome: Ongoing Goal: Compensatory Techniques to Improve Safety/Function with Swallowing Description: Patient will demonstrate the desired outcomes by discharge/transition of care. Outcome: Ongoing Problem: Stroke (Ischemic) (Adult) Goal: Signs and Symptoms of Listed Potential Problems Will be Absent, Minimized or Managed (Stroke) Description: Signs and symptoms of listed potential problems will be absent, minimized or managed by discharge/transition of care (reference Stroke (Ischemic) (Adult) CPG). Outcome: Ongoing Problem: Thrombolytic Therapy (Adult) Goal: Signs and Symptoms of Listed Potential Problems Will be Absent, Minimized or Managed (Thrombolytic Therapy) Description: Signs and symptoms of listed potential problems will be absent, minimized or managed by discharge/transition of care (reference Thrombolytic Therapy (Adult) CPG). Outcome: Ongoing Problem: FREIGHT LOADING SUPERVISOR - Cognition Goal: Memory Goal 2 Description: Patient will demonstrate understanding of x3 external or internal memory strategies with inconsistent minimal cues, across 1-2 sessions in order to facilitate improvements with memory for greater level of independence. 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 Outcome: Ongoing Problem: PT - Mobility Goal: Ambulation Description: Pt will ambulate 250 feet with least restrictive device with modified independence to improve ability to navigate home environment. Outcome: Ongoing Goal: Stairs Description: Pt will ascend/descend 5 stairs with unilateral railings with modified independence with least restrictive device to improve ability to perform functional mobility necessary in recommended discharge environment. Outcome: Ongoing Problem: PT - Transfers Goal: Supine <-> Sit Description: Pt will perform bed mobility with flat bed & no rail with independence in order toimprove functional mobility and safety. Outcome: Ongoing Goal: Sit <-> Stand Description: Pt will perform sit to/from stand transfers with modified independence with least restrictive device in order to improve functional mobility and safety. Outcome: Ongoing Goal: Strength/ROM Description: pt will be independent and compliant with therapeutic exercise program Outcome: Ongoing Problem: OT - Dressing Goal: Lower Body Dressing Description: Pt will complete LE dressing tasks with modified independence for improved ability to complete self-care activities. Outcome: Ongoing Problem: OT - ADLs Goal: Grooming Description: Pt will complete grooming in standing with modified independence for improved ability to safely complete ADLs. Outcome: Ongoing Goal: Toileting Description: Pt will complete toileting task including clothing management with modified independence for improved ability to safely complete self-care activities. Outcome: Ongoing Goal: Feeding Description: Pt will perform self-feeding task while seated with modified independence to promote success and safety during daily routine. Outcome: Ongoing Problem: OT - Cognition Goal: Cognition Home Maintenance Description: Pt will complete simulated home maintenance task (medication management, finance management, etc.) with modified independence to promote safety and success at discharge destination. Outcome: Ongoing Problem: OT - Endurance Goal: Endurance Functional Task Standing Description: Pt will engage in standing functional task for 10 minutes with supervision to improve activity tolerance necessary for safe ADL completion at recommended discharge destination. Outcome: Ongoing Problem: OT - Transfers Goal: Transfers Toilet/Bedside Commode Description: Pt will transfer to/from toilet/BSC with modified independence for improved ability tosafely complete ADLs. Outcome: Ongoing Problem: OT - Strength/ROM Goal: Strength/ROM ADL Participation Description: Pt will demonstrate independence with UE exercise program to prevent deconditioning while in the hospital and to maximize UE ROM/coordination/strength for ADL participation. Outcome: Ongoing [facility]07-24-2022 Note* Plan of Care - Rajani Carmona, FLOOR LAYER- STEREOTYPE FINISHER - 05/22/2022 4:20 PM EDT CAM-ICU feature Instructions Range Result 24-hour RASS range Record the lowest RASS over the last 24 hours -5 to +4 0 Record the highest RASS over the last 24 hours -5 to +4 0 #1: Acute change from baseline or fluctuating course of mental status Is the RASS different than baseline OR Fluctuating over the past 24 hours, based on RASS? Yes/No No #2: Inattention Squeeze hand for letter A, record # of errors out of 10 SAVEAHAART, CASABLANCA, or ABADABADAY 0 to 10 0 #3: Altered LOC Record the current RASS -5 to +4 0 #4a: Disorganized thinking (questions) In response to the four questions, record the number of errors 1. Will a stone float on water? 2. Are there fish in the sea? 3. Does one pound weight more than two? 4. Can you use a hammer to pound a nail? 0 to 4 0 #4b: Disorganized thinking (commands) 2-step command, record the number errors Hold up this many fingers (hold up 2) Add one more finger (don't demonstrate) 0 to 1 0 Receptive aphasia Does pt. have receptive aphasia that impairs their ability to perform the above? Yes/No No MUKUND [facility]07-24-2022 Note* Plan of Care - Chandu Rodriguez, PT - 05/22/2022 1:57 PM EDT Problem: PT - Mobility Goal: Ambulation Description: Pt will ambulate 250 feet with least restrictive device with modified independence to improve ability to navigate home environment. Outcome: Ongoing Goal: Stairs Description: Pt will ascend/descend 5 stairs with unilateral railings with modified independence with least restrictive device to improve ability to perform functional mobility necessary in recommended discharge environment. Outcome: Ongoing Problem: PT - Transfers Goal: Supine <-> Sit Description: Pt will perform bed mobility with flat bed & no rail with independence in order toimprove functional mobility and safety. Outcome: Ongoing Goal: Sit <-> Stand Description: Pt will perform sit to/from stand transfers with modified independence with least restrictive device in order to improve functional mobility and safety. Outcome: Ongoing Goal: Strength/ROM Description: pt will be independent and compliant with therapeutic exercise program Outcome: Ongoing [facility]07-24-2022 Note* Plan of Care - Annabelle Dunlap, OT - 05/22/2022 10:34 AM EDT Problem: OT - Dressing Goal: Lower Body Dressing Description: Pt will complete LE dressing tasks with modified independence for improved ability to complete self-care activities. Outcome: Ongoing Problem: OT - ADLs Goal: Grooming Description: Pt will complete grooming in standing with modified independence for improved ability to safely complete ADLs. Outcome: Ongoing Goal: Toileting Description: Pt will complete toileting task including clothing management with modified independence for improved ability to safely complete self-care activities. Outcome: Ongoing Goal: Feeding Description: Pt will perform self-feeding task while seated with modified independence to promote success and safety during daily routine. Outcome: Ongoing Problem: OT - Cognition Goal: Cognition Home Maintenance Description: Pt will complete simulated home maintenance task (medication management, finance management, etc.) with modified independence to promote safety and success at discharge destination. Outcome: Ongoing Problem: OT - Endurance Goal: Endurance Functional Task Standing Description: Pt will engage in standing functional task for 10 minutes with supervision to improve activity tolerance necessary for safe ADL completion at recommended discharge destination. Outcome: Ongoing Problem: OT - Transfers Goal: Transfers Toilet/Bedside Commode Description: Pt will transfer to/from toilet/BSC with modified independence for improved ability tosafely complete ADLs. Outcome: Ongoing Problem: OT - Strength/ROM Goal: Strength/ROM ADL Participation Description: Pt will demonstrate independence with UE exercise program to prevent deconditioning while in the hospital and to maximize UE ROM/coordination/strength for ADL participation. 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 Outcome: Ongoing [facility]07-23-2022 Consult note* Ulises Jensen RN - 05/21/2022 11:00 PM EDT Vascular Access Procedure Note for Ultrasound Guided PIV Placement Assessment Brittani Sage seen and evaluated for peripheral IV insertion using ultrasound guidance. ID band present, allergies verified and patient/nurse questioned of limb precautions. Skin integrity assessed, no evidence of condition that would prevent safe insertion of a peripheral IV with ultrasound. Allergies: Not on File Insertion 1. Ultrasound guided PIV: Peripheral IV placed per aseptic technique under ultrasound guidance on 1attempt(s). []Obtained labs. Peripheral IV Line - Single Lumen 05/21/222299 forearm, posterior, left 20 gauge;1 3/4 in length (Active) 05/21/222299 Present On Admission : no Guiding Device: ultrasound Lumen 1: Location: forearm, posterior, left Device/Lot Number: [id number] catheter system Gauge/Length: 20 gauge;1 3/4 in length Unsuccessful Insertion Attempts: 0 Unsuccessful Attempt Location/Site: Pain Prevention/Patient Tolerance: distraction;tolerated well Removal: Additional Comments: Lumen 2: Lumen 3: Peripheral IV Present on Admission: (Retired/Read Only) Location: (Retired/Read Only) Device: (Retired/Read Only) Gauge/Length: [employer]/Lot Number: Unsuccessful Insertion Attempts: (Retired/Read Only) Unsuccessful Attempt Locations: Pain Prevention: Patient Tolerance: Insertion: Removal Indication: Peripheral IV Location - Orientation: Peripheral IV Location: Insertion Site WDL WDL 05/21/222299 Site Preparation/Maintenance site cleansed: chlorhexidine solution;dressing: transparent semipermeable;dressing: dry and intact 05/21/222299 Securement catheter stabilization device, secured with 05/21/222299 Date Dressing Changed 05/21/22 05/21/222299 Lumen 1 Patency/Maintenance flushed without difficulty;blood return, able to obtain 05/21/222299 Date Lumen 1 Cap/Connector Changed/Applied 05/21/22 05/21/222299 Phlebitis 0-->no symptoms 05/21/222299 Infiltration 0-->no symptoms 05/21/222299 Indication/Daily Review of Necessity fluid therapy;medication therapy;blood product therapy 05/21/222299 Positive blood return noted, flushes easily, no edema, or leakage noted. Stabilization device used to secure IV, occlusive dressing applied. Denies pain at site. Patient tolerated procedure well. Site dated and initialed. Bedside RN notified of procedure completion Education Patient/Family informed to notify nurse of any complications including pain, redness, swelling, or leakage post insertion. Pt safety room check completed prior to exiting room. [x]Call light. [x]Bed locked. [x]Bed low. [x]Tray table within reach. Thank you for allowing our team to participate in the care of this patient. Vascular Access Team [id number] [facility]07-23-2022 Consult note* Ulises Jensen RN - 05/21/2022 11:00 PM EDT Vascular Access Procedure Note for Ultrasound Guided PIV Placement Assessment Brittani Sage seen and evaluated for peripheral IV insertion using ultrasound guidance. ID band present, allergies verified and patient/nurse questioned of limb precautions. Skin integrity assessed, no evidence of condition that would prevent safe insertion of a peripheral IV with ultrasound. Allergies: Not on File Insertion 1. Ultrasound guided PIV: Peripheral IV placed per aseptic technique under ultrasound guidance on 1attempt(s). []Obtained labs. Peripheral IV Line - Single Lumen 05/21/222299 forearm, posterior, left 20 gauge;1 3/4 in length (Active) 05/21/222299 Present On Admission : no Guiding Device: ultrasound Lumen 1: Location: forearm, posterior, left Device/Lot Number: [id number] catheter system Gauge/Length: 20 gauge;1 3/4 in length Unsuccessful Insertion Attempts: 0 Unsuccessful Attempt Location/Site: Pain Prevention/Patient Tolerance: distraction;tolerated well Removal: Additional Comments: Lumen 2: Lumen 3: Peripheral IV Present on Admission: (Retired/Read Only) Location: (Retired/Read Only) Device: (Retired/Read Only) Gauge/Length: [employer]/Lot Number: Unsuccessful Insertion Attempts: (Retired/Read Only) Unsuccessful Attempt Locations: Pain Prevention: Patient Tolerance: Insertion: Removal Indication: Peripheral IV Location - Orientation: Peripheral IV Location: Insertion Site WDL WDL 05/21/222299 Site Preparation/Maintenance site cleansed: chlorhexidine solution;dressing: transparent semipermeable;dressing: dry and intact 05/21/222299 Securement catheter stabilization device, secured with 05/21/222299 Date Dressing Changed 05/21/22 05/21/222299 Lumen 1 Patency/Maintenance flushed without difficulty;blood return, able to obtain 05/21/222299 Date Lumen 1 Cap/Connector Changed/Applied 05/21/22 05/21/222299 Phlebitis 0-->no symptoms 05/21/222299 Infiltration 0-->no symptoms 05/21/222299 Indication/Daily Review of Necessity fluid therapy;medication therapy;blood product therapy 05/21/222299 Positive blood return noted, flushes easily, no edema, or leakage noted. Stabilization device used to secure IV, occlusive dressing applied. Denies pain at site. Patient tolerated procedure well. Site dated and initialed. Bedside RN notified of procedure completion Education Patient/Family informed to notify nurse of any complications including pain, redness, swelling, or leakage post insertion. Pt safety room check completed prior to exiting room. [x]Call light. [x]Bed locked. [x]Bed low. [x]Tray table within reach. Thank you for allowing our team to participate in the care of this patient. Vascular Access Team [id number] * Herbie Robledo Jr., MD - 05/21/2022 8:21 PM EDT Neurosurgery Thrombectomy Consult Note HPI Ms. Brittani Sage is a 77 y.o. female w/ unknown pmhx who presents to [facility] as a level 1 stroke alert. Initially she was NIH 4 on arrival receiving tPA. She was placed in the Endo Low study and randomized to medical therapy. Several hours later, her exam worsened. NIH 13, qualifying her for intervention She takes no anticoagulants or antiplatelet agents. Baseline mRS 1 LKW 1330 [facility]SS at [facility] 4 NIHSS at [facility] 13 C[facility] Negative for hemorrhage CTA R M1 CTP CBF<30% na mL Tmax >6s na mL mismatch volume na mL mismatch ratio na tPA given yes ROS: unable to obtain No past medical history on file. No past surgical history on file. No family history on file. Allergies Not on File Infusions Heparin (Porcine) in NaCl [MAR Hold] sodium chloride 0.9% 75 mL/hr at 05/21/22 1637 [MAR Hold] sodium chloride 0.9% 75 mL/hr at 05/21/22 1638 Scheduled Meds [Dec] senna 8.6 mg Oral QAM Or [Dec] senna 8.6 mg Per NG tube QAM PRN Meds: [Dec] acetaminophen OR [DEC Hold] acetaminophen OR [Dec] acetaminophen OR [Dec] acetaminophen, Heparin (Porcine) in NaCl, [Dec] hydrALAZINE, iodixanol, [Dec] labetalol, [Dec] lidocaine 1% (PF), lidocaine, [Dec] polyethylene glycol OR [Dec] polyethylene glycol Home Meds Prior to Admission medications Not on File Vitals Temp: [97.9 F (36.6 C)] 97.9 F (36.6 C) Pulse (Heart Rate): [63-68] 65 Resp Rate: [18-31] 31 BP: (133-206)/(60-83) 166/79 O2 Sat (%): [94 %-98 %] 97 % Physical Alert, oriented x4 PERRL, R gaze deviation R facial droop L arm flaccid, withdraws L leg antigravity, withdraws R side full strength Labs WBC/Hgb/Hct/Plts: 10.42/12.5/38.4/201 (05/21 160) Na/K+/Phos/Mg/Ca: 140/4.0/3.3/1.8/8.1 (05/21 160) Bun/Creat/Cl/CO2/Glucose: 22/0.92/109/26/149 (05/21 160) Recent Labs 05/21/22 1603 PT 14.3* INR 1.1 Imaging: CT HEAD WITHOUT CONTRAST Preliminary Result IMPRESSION: 1. No evidence of interval hemorrhage. 2. Patchy white matter low attenuation, notably along the right external capsule and fleming radiata. CT ANGIO BRAIN/NECK Preliminary Result IMPRESSION: 1. Right M1 segment occlusion with distal reconstitution. The other intracranial vessels are patent. 2. Incidentally noted 1.3 cm right thyroid nodule. Nonemergent outpatient thyroid ultrasound could be performed for further evaluation. A Critical finding has been discussed with Dr. Michele Kingsley with a read back to Pb Rios MD on 05/21/2022 4:[address] STROKE HEAD-STROKE ALERT ONLY Final Result IMPRESSION: No acute hemorrhage or mass effect. Findings were discussed with Dr. Michele Kingsley at 4:17 PM on 05/21/2022. I personally viewed and interpreted these images and I have reviewed and approved this report. CARDIOGRAM (Results Pending) MRI BRAIN WITHOUT CONTRAST (Results Pending) FLUORO IMAGING FOR NEURO ENDOVASCULAR (Results Pending) A/P: Brittani Sage is a 77 y.o. female w/ unknown pmhx, presenting as stroke alert. Exam and imaging findings consistent with acute R M1 occlusion meeting criteria for emergent revascularization. - to OR emergently for thrombectomy - to be admitted to neurocritical care service under NCCU attending postoperatively Staff: Dr. Harvey Covering: NS2 ([id number]) ## neurosurgery coverage changes at 0530/1730; if 0530 or 1730 has passed since original consult note placed, please page covering resident above ## Associated attestation - Kevin Harvey MD - 05/24/2022 12:17 PM EDT I, Kevin Harvey MD., saw and evaluated the patient. Case was discussed with the Housestaff. I personally performed the lloyd portions of the history and the physical examination and I agree with thefindings, assessment and plan. I edited the documentation as necessary. Brittani Sage is a 77 y.o. female w/ unknown pmhx, presenting as stroke alert. Exam and imaging findings consistent with acute R M1 occlusion meeting criteria for emergent revascularization. - to OR emergently for thrombectomy - to be admitted to neurocritical care service under NCCU attending postoperatively Thank you for allowing me to participate in the care of this patient. [facility]* Plan of Care - Ulises Varner APRN-STEREOTYPE FINISHER - 05/21/2022 10:16 PM EDT CAM-ICU feature Instructions Range Result 24-hour RASS range Record the lowest RASS over the last 24 hours -5 to +4 0 Record the highest RASS over the last 24 hours -5 to +4 0 #1: Acute change from baseline or fluctuating course of mental status Is the RASS different than baseline OR Fluctuating over the past 24 hours, based on RASS? Yes/No No #2: Inattention Squeeze hand for letter A, record # of errors out of 10 SAVEAHAART, CASABLANCA, or ABADABADAY 0 to 10 0 #3: Altered LOC Record the current RASS -5 to +4 0 #4a: Disorganized thinking (questions) In response to the four questions, record the number of errors 1. Will a stone float on water? 2. Are there fish in the sea? 3. Does one pound weight more than two? 4. Can you use a hammer to pound a nail? 0 to 4 0 #4b: Disorganized thinking (commands) 2-step command, record the number errors Hold up this many fingers (hold up 2) Add one more finger (don't demonstrate) 0 to 1 0 Receptive aphasia Does pt. have receptive aphasia that impairs their ability to perform the above? Yes/No No MUKUND Horvath [facility]07-23-2022 Note* Op Note - Cody Peter MD - 05/21/2022 9:00 PM EDT DATE OF PROCEDURE: 05/21/2022 PREOPERATIVE DIAGNOSIS: Ischemic stroke, right M1 occlusion POSTOPERATIVE DIAGNOSIS: Ischemic stroke, right M1 occlusion PROCEDURE PERFORMED: Mechanical thrombectomy, right M1 occlusion CLINICAL INDICATION: Brittani Sage is a 77 y.o. female who presented originally from an outside facility with stroke like symptoms and findings of a large vessel occlusion on CTA. She was given tPA. Upon arrival to [facility] she had a NIHSS of 4. She originally was not a candidate for thrombectomy but her NIHSS worsened to 13 and the decision was made to take her to surgery for mechanical thrombectomy SURGEON: Kevin Harvey MD TOBACCO STRIPPER: Cody Peter MD ANESTHESIA: Local anesthetic in right groin. MAC provided by anesthesia provider. Pre-, intra-, andpost-anesthesia monitoring records are available in the chart. CONTRAST: 100 cc PROCEDURE IN DETAIL: Prior to the procedure, the technical aspects of the procedure, as well as potential risks and benefits, were explained to the patient. Specifically, the risks of cerebral infarction, hemorrhage, blindness, cranial nerve palsy, facial pain, anaphylaxis, worsening of his preexisting renal failure, limb loss, , groin hematoma, arterial dissection, arterial pseudoaneurysm, and development of arteriovenous fistula were discussed. After informed written consent was obtained, the patient was brought to the angiography suite and positioned supine with pressure points padded appropriately. The right groin was prepped and draped in the usual fashion. Access to the right femoral artery was gained in the usual way with a micropunct ure kit. An 8 Ukrainian short sheath was introduced into the right femoral artery. An angiogram of theright femoral artery was then performed to ensure adequate sheath placement. The arch was too tortuous for the Berenstein select, so we then advanced the Pearl-2 select catheter within the .088 Tracstar over the wire and into the arch, then shaped it in the descending aorta. The catheter was thenadvanced in the right common carotid artery were we obtained cervical views of the carotid artery. Under roadmap guidance we advanced the select catheter over the wire into the right internal carotidartery and then advanced the TracStar guide up into the petrous ICA. The select catheter and Glidwire were withdrawn and baseline AP, lateral cerebral angiography was obtained. There was a right M1 occlusion seen. The Zoom 71 and Marksmen coaxial system were introduced into the guide catheter. We navigated the microwire and microcatheter past the occlusion and into the M2 branch and then navigated the Zoom 71 aspiration catheter up until it abutted the clot. Microcatheter and wire were removed and the aspiration tubing was hooked up to suction. After 3 minutes of engagement with the clot, we brought the aspiration tubing down. Follow up cerebral angiography was performed that demonstrated reperfusion of the MCA territory. We then removed the guide cathter and introduced the Select diagnostic catheter to complete the angiogram. Left common carotid was catheterized and cervical carotid angiography was performed. From the left common carotid we then performed cerebral angiography. The catheter was withdrawn from the carotid and advanced into the left vertebral artery. Cerebral angiography was performed. The catheter was then withdrawn. AP, lateral, oblique and magnified views were obtained. The catheter was withdrawn and right external carotid artery was selected with cerebral views obtained. The catheter was withdrawn into the arch and then advanced into the left common carotid artery where we obtained cervical angiography. The catheter was then advanced into the left ICA and we obtained cerebral angiography in AP, lateral, and oblique magnified views from the left ICA. The catheter was withdrawn and left external carotid artery catheterized with cerebral angiography obtained. The catheter was brought down into the arch and we selected the left vertebral artery. Cerebral angiography from the left vertebral artery was performed. At the conclusion of the procedure the diagnostic catheter was removed. A Mynx closure device was used to achieve hemostasis. Sterile dressing and a tegaderm were then applied over the puncture site. The patient tolerated the procedure well without apparent complications and transferred to NCCU in stable condition. COMPARISON: CTA from the same day FINDINGS: RIGHT COMMON CAROTID ARTERY, CERVICAL: Antegrade flow is seen through the common carotid artery andinto the internal and external carotid arteries. The carotid bulb is smooth without evidence of flow limiting stenosis or stenosis with respect to the distal ICA. There is normal opacification of right ECA branches. RIGHT INTERNAL CAROTID ARTERY, CEREBRAL: Antegrade flow seen through internal carotid artery and into the anterior cerebral artery. Right M1 occlusion is clearly seen. Large right pcomm is noted, andthere is flash fill across the acomm into the left A2. Post thrombectomy angiography reveals TICI 3reperfusion of the right MCA territory. No evidence of aneurysm or venous shunting. LEFT COMMON CAROTID ARTERY, CERVICAL: Antegrade flow is seen through the common carotid artery and into the internal and external carotid arteries. The carotid bulb is smooth without evidence of flowlimiting stenosis or stenosis with respect to the distal ICA. There is normal opacification of right ECA branches. LEFT COMMON CAROTID ARTERY, CEREBRAL: Antegrade flow seen through internal carotid artery and into the anterior and middle cerebral arteries. Normal cerebral perfusion through capillary phase. Small left posterior communicating artery. No evidence of aneurysm, arteriovenous shunting, or focal stenosis. ECA branches show normal opacification without venous shunting. LEFT VERTEBRAL ARTERY, CEREBRAL: Antegrade flow is seen through the left vertebral artery with reflux into the right vertebral artery to opacify the contralateral PICA. Antegrade flow seen through the vertebrobasilar system with normal cerebral perfusion through the capillary and venous phases. Right OPERATIONS LIEUTENANT territory does not fill from vertebrobasilar system consistent with OPERATIONS LIEUTENANT seen on right ICA injections. There is no evidence of aneurysm, focal stenosis, or early draining vein. Both PICA'sdemonstrate normal takeoffs from the distal ipsilateral vertebral arteries. RIGHT COMMON FEMORAL ARTERY: No abnormalities are detected. This artery is appropriate for use of the mynx closure device. COMPLICATIONS: None immediate. IMPRESSION: 1. 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 No carotid occlusive disease 3. Cerebral vasculature without evidence of aneurysm or arteriovenous shunting. Dr. Harvey was present for and participated in the entire procedure Associated attestation - Kevin Harvey MD - 05/23/2022 10:17 AM EDT Agree with above as written. I was present for the entire procedure. [facility] Work Phone: [phone]) 127-565207-23-2022 Note* Brief Op Note - Cody Peter MD - 05/21/2022 8:38 PM EDT Brittani Chu ([id number]) PRE OPERATIVE DIAGNOSIS CVA (cerebral vascular accident) [I63.9] POST OPERATIVE DIAGNOSIS Post-Op Diagnosis Codes: * CVA (cerebral vascular accident) [I63.9] PROCEDURE PERFORMED Procedure(s) (LRB): THROMBECTOMY FOR STROKE (Right) PRIMARY CLOSURE Mynx Closure Device INTRAOPERATIVE FINDINGS right M1 occlusion SURGEON Surgeon(s) and Role: * Kevin Harvey MD - Primary * Cody Peter MD - Fellow ANESTHESIOLOGIST Anesthesiologist: Humaira Mcmullen MD; Isacc Bustillo MD Commercial Escrow Officer Assisting: Lewis Stone MD; Akosua Sanz MD SURGICAL STAFF [employer] Sales Consultant: Nevaeh Neil RN Relief [employer] Sales Consultant: Mason Tena RN Relief Scrub: Markell Ramos RN Resident Assisting: Herbie Robledo Jr., MD COMPLICATIONS None ESTIMATED BLOOD LOSS Minimal SPECIMENS No specimen sent * No specimens in log * Cody Peter MD May 21, 2022 8:38 PM I, Kevin Harvey MD., saw and evaluated the patient. Case was discussed with the Housestaff. I personally performed the lloyd portions of the history and the physical examination and I agree with thefindings, assessment and plan. I edited the documentation as necessary. [facility]07-23-2022 Nurse Surgical operation note* Mason Tena RN - 05/21/2022 8:30 PM EDT [facility]07-23-2022 Nurse Note* Mason Tena RN - 05/21/2022 8:30 PM EDT [facility]* Herbie Robledo Jr., MD - 05/21/2022 8:21 PM EDT Neurosurgery Thrombectomy Consult Note HPI Ms. Brittani Sage is a 77 y.o. female w/ unknown pmhx who presents to [facility] as a level 1 stroke alert. Initially she was NIH 4 on arrival receiving tPA. She was placed in the Endo Low study and randomized to medical therapy. Several hours later, her exam worsened. NIH 13, qualifying her for intervention She takes no anticoagulants or antiplatelet agents. Baseline mRS 1 LKW 1330 NIHSS at [facility] 4 NIHSS at [facility] 13 CTH Negative for hemorrhage CTA R M1 CTP CBF<30% na mL Tmax >6s na mL mismatch volume na mL mismatch ratio na tPA given yes ROS: unable to obtain No past medical history on file. No past surgical history on file. No family history on file. Allergies Not on File Infusions Heparin (Porcine) in NaCl [MAR Hold] sodium chloride 0.9% 75 mL/hr at 05/21/22 1637 [DEC Hold] sodium chloride 0.9% 75 mL/hr at 05/21/22 1638 Scheduled Meds [Dec] senna 8.6 mg Oral QAM Or [Dec] senna 8.6 mg Per NG tube QAM PRN Meds: [Dec] acetaminophen OR [DEC Hold] acetaminophen OR [Dec] acetaminophen OR [Dec] acetaminophen, Heparin (Porcine) in NaCl, [DEC Hold] hydrALAZINE, iodixanol, [DEC Hold] labetalol, [Dec] lidocaine 1% (PF), lidocaine, [Dec] polyethylene glycol OR [Dec] polyethylene glycol Home Meds Prior to Admission medications Not on File Vitals Temp: [97.9 F (36.6 C)] 97.9 F (36.6 C) Pulse (Heart Rate): [63-68] 65 Resp Rate: [18-31] 31 BP: (133-206)/(60-83) 166/79 O2 Sat (%): [94 %-98 %] 97 % Physical Alert, oriented x4 PERRL, R gaze deviation R facial droop L arm flaccid, withdraws L leg antigravity, withdraws R side full strength Labs WBC/Hgb/Hct/Plts: 10.42/12.5/38.4/201 (05/21 1603) Na/K+/Phos/Mg/Ca: 140/4.0/3.3/1.8/8.1 (05/21 1603) Bun/Creat/Cl/CO2/Glucose: 22/0.92/109/26/149 (05/21 1603) Recent Labs 05/21/22 1603 PT 14.3* INR 1.1 Imaging: CT HEAD WITHOUT CONTRAST Preliminary Result IMPRESSION: 1. No evidence of interval hemorrhage. 2. Patchy white matter low attenuation, notably along the right external capsule and fleming radiata. CT ANGIO BRAIN/NECK Preliminary Result IMPRESSION: 1. Right M1 segment occlusion with distal reconstitution. The other intracranial vessels are patent. 2. Incidentally noted 1.3 cm right thyroid nodule. Nonemergent outpatient thyroid ultrasound could be performed for further evaluation. A Critical finding has been discussed with Dr. Michele Kingsley with a read back to Pb Rios MD on 05/21/2022 4:[address] STROKE HEAD-STROKE ALERT ONLY Final Result IMPRESSION: No acute hemorrhage or mass effect. Findings were discussed with Dr. Michele Kingsley at 4:17 PM on 05/21/2022. I personally viewed and interpreted these images and I have reviewed and approved this report. CARDIOGRAM (Results Pending) MRI BRAIN WITHOUT CONTRAST (Results Pending) FLUORO IMAGING FOR NEURO ENDOVASCULAR (Results Pending) A/P: Brittani Sage is a 77 y.o. female w/ unknown pmhx, presenting as stroke alert. Exam and imaging findings consistent with acute R M1 occlusion meeting criteria for emergent revascularization. - to OR emergently for thrombectomy - to be admitted to neurocritical care service under NCCU attending postoperatively Staff: Dr. Harvey Covering: NS2 ([id number]) ## neurosurgery coverage changes at 0530/1730; if 0530 or 1730 has passed since original consult note placed, please page covering resident above ## Associated attestation - Kevin Harvey MD - 05/24/2022 12:17 PM EDT I, Kevin Harvey MD., saw and evaluated the patient. Case was discussed with the Housestaff. I personally performed the lloyd portions of the history and the physical examination and I agree with thefindings, assessment and plan. I edited the documentation as necessary. Brittani Sage is a 77 y.o. female w/ unknown pmhx, presenting as stroke alert. Exam and imaging findings consistent with acute R M1 occlusion meeting criteria for emergent revascularization. - to OR emergently for thrombectomy - to be admitted to neurocritical care service under NCCU attending postoperatively Thank you for allowing me to participate in the care of this patient. [facility] Work Phone: 1([phone]) 615-916807-23-2022 Note* Significant Event - Kortney Smiley MD - 05/21/2022 7:11 PM EDT NEUROVASCULAR BRIEF NOTE Paged about increase in NIHSS from 4 to 16. Briefly, 77 y.o. female with unknown PMH who presents as a transfer from an outside hospital as a level 1 stroke alert. LWK 1330. Reports patient was eating lunch when friends noticed R sided facial droop, slurred speech, L sided weakness. Telestroked, s/p TPA at 1430. R M1 occlusion on OSH scan. On assessment, NIHSS 13 as below. Exam most notable for worsening L facial droop, L sided weakness,and extinction. Confirmed with patient, mRS 0. Repeat CTH without bleed per my read. Provider NIH Stroke Scale NIH Interval (Provider): daily NIH Level of Conciousness (Provider): 0 NIH LOC Questions (Provider): 0 NIH LOC Commands (Provider): 0 NIH Best Gaze (Provider): 1 NIH Visual (Provider): 0 NIH Facial Palsy (Provider): 2 NIH Left Arm Motor (Provider): 3 NIH Right Arm Motor (Provider): 0 NIH Left Leg Motor (Provider): 3 NIH Right Leg Motor (Provider): 0 NIH Limb Ataxia (Provider): 0 NIH Sensory (Provider): 1 NIH Best Language (Provider): 0 NIH Dysarthria (Provider): 1 NIH Extinction and Inattention (Provider): 2 NIH Total Score (Provider): 13 She is within 6 hours of LKW so deferred CTP. Updated NSGY STAT as she is a thrombectomy candidate. To OR emergently. Case discussed with Dr. Castellanos and Dr. Hernandez. Please call the Neurology resident concrete crusher loader operator if with additional questions Kortney Smiley MD PGY-3 Neurology [id number] [facility] Work Phone: [phone] Note* Nursing Notes - Chris Saini RN - 05/21/2022 6:15 PM EDT 1804:MD Kingsley paged. NIH increased by 11 and BP is 183/79 with no PRN meds available. awaiting response. [facility]07-23-2022 NoteAcute Coronary Syndrome (ACS): Initial Evaluation and Management: [email or web address] [facility]07-23-2022 Physician Emergency department Note* Franklin Lloyd MD - 05/21/2022 4:19 PM EDT dEPARTMENT of Emergency Medicine CHIEF COMPLAINT No chief complaint on file. IVY Sage is a 77 y.o. female who presents with history of HTN, here with left sided weaknessfor three hours, was seen at OSH and was given tPA with no improvement. There is no associated headache. There are no aggravating or relieving factors. REVIEW OF SYSTEMS Review of Systems Constitutional: Negative for chills and fever. HENT: Negative for congestion and sore throat. Respiratory: Negative for cough and shortness of breath. Cardiovascular: Negative for chest pain and leg swelling. Gastrointestinal: Positive for abdominal pain. Negative for nausea and vomiting. Genitourinary: Negative for difficulty urinating and frequency. Neurological: Positive for weakness. Negative for headaches. All other systems reviewed and are negative. PAST MEDICAL HISTORY No past medical history on file. SURGICAL HISTORY No past surgical history on file. CURRENT MEDICATIONS Current Facility-Administered Medications Medication Dose Route Frequency Provider Last Rate Last Admin hydrALAZINE (APRESOLINE) injection 10 mg 10 mg Intravenous Q10 MIN PRN Francoise Monson MD labetalol (NORMODYNE) injection 20 mg 20 mg Intravenous Q10 MIN PRN Francoise Monson MD lidocaine 1% (PF) (XYLOCAINE MPF) 1 % injection 0.3 mL 0.3 mL Infiltration Once PRN Francoise Monson MD sodium chloride 0.9% IV solution Intravenous Continuous Francoise Monson MD sodium chloride 0.9% IV solution 0.81 mL/kg/hr (Order-Specific) Intravenous Once Francoise Monson MD No current outpatient medications on file. ALLERGIES Not on File FAMILY HISTORY No family history on file. SOCIAL HISTORY Social History Socioeconomic History Marital status: Not on file Spouse name: Not on file Number of children: Not on file Years of education: Not on file Highest education level: Not on file Occupational History Not on file Tobacco Use Smoking status: Not on file Smokeless tobacco: Not on file Substance and Sexual Activity Alcohol use: Not on file Drug use: Not on file Sexual activity: Not on file Other Topics Concern Not on file Social History Narrative Not on file Social Determinants of Health Financial Resource Strain: Not on file Food Insecurity: Not on file Transportation Needs: Not on file Physical Activity: Not on file Stress: Not on file Social Connections: Not on file Intimate Partner Violence: Not on file Housing Stability: Not on file PHYSICAL EXAM BP 189/70 Pulse 68 Resp 18 SpO2 96% Physical Exam Constitutional: Appearance: She is well-developed. HENT: Head: Normocephalic and atraumatic. Eyes: Pupils: Pupils are equal, round, and reactive to light. Cardiovascular: Rate and Rhythm: Normal rate and regular rhythm. Pulmonary: Effort: Pulmonary effort is normal. No respiratory distress. Breath sounds: Normal breath sounds. Abdominal: Palpations: Abdomen is soft. There is no mass. Tenderness: There is no abdominal tenderness. There is no guarding or rebound. Skin: General: Skin is warm and dry. Neurological: Mental Status: She is alert and oriented to person, place, and time. Motor: Weakness present. Comments: There is left sided weakness ED COURSE & MEDICAL DECISION MAKING CVA vs TIA, plan admit On 05/21/2022 I saw and examined the patient. I discussed the history and examination with the resident and agree with the plan of care. Franklin Lloyd MD 05/21/22 1387 [facility] Work Phone: [phone]) [phone] Emergency department Note* Franklin Lloyd MD - 05/21/2022 4:19 PM EDT dEPARTMENT of Emergency Medicine CHIEF COMPLAINT No chief complaint on file. HPI Brittani Sage is a 77 y.o. female who presents with history of HTN, here with left sided weaknessfor three hours, was seen at OSH and was given tPA with no improvement. There is no associated headache. There are no aggravating or relieving factors. REVIEW OF SYSTEMS Review of Systems Constitutional: Negative for chills and fever. HENT: Negative for congestion and sore throat. Respiratory: Negative for cough and shortness of breath. Cardiovascular: Negative for chest pain and leg swelling. Gastrointestinal: Positive for abdominal pain. Negative for nausea and vomiting. Genitourinary: Negative for difficulty urinating and frequency. Neurological: Positive for weakness. Negative for headaches. All other systems reviewed and are negative. PAST MEDICAL HISTORY No past medical history on file. SURGICAL HISTORY No past surgical history on file. CURRENT MEDICATIONS Current Facility-Administered Medications Medication Dose Route Frequency Provider Last Rate Last Admin hydrALAZINE (APRESOLINE) injection 10 mg 10 mg Intravenous Q10 MIN PRN Francoise Monson MD labetalol (NORMODYNE) injection 20 mg 20 mg Intravenous Q10 MIN PRN Francoise Monson MD lidocaine 1% (PF) (XYLOCAINE MPF) 1 % injection 0.3 mL 0.3 mL Infiltration Once PRN Francoise Monson MD sodium chloride 0.9% IV solution Intravenous Continuous Francoise Monson MD sodium chloride 0.9% IV solution 0.81 mL/kg/hr (Order-Specific) Intravenous Once Francoise Monson MD No current outpatient medications on file. ALLERGIES Not on File FAMILY HISTORY No family history on file. SOCIAL HISTORY Social History Socioeconomic History Marital status: Not on file Spouse name: Not on file Number of children: Not on file Years of education: Not on file Highest education level: Not on file Occupational History Not on file Tobacco Use Smoking status: Not on file Smokeless tobacco: Not on file Substance and Sexual Activity Alcohol use: Not on file Drug use: Not on file Sexual activity: Not on file Other Topics Concern Not on file Social History Narrative Not on file Social Determinants of Health Financial Resource Strain: Not on file Food Insecurity: Not on file Transportation Needs: Not on file Physical Activity: Not on file Stress: Not on file Social Connections: Not on file Intimate Partner Violence: Not on file Housing Stability: Not on file PHYSICAL EXAM BP 189/70 Pulse 68 Resp 18 SpO2 96% Physical Exam Constitutional: Appearance: She is well-developed. HENT: Head: Normocephalic and atraumatic. Eyes: Pupils: Pupils are equal, round, and reactive to light. Cardiovascular: Rate and Rhythm: Normal rate and regular rhythm. Pulmonary: Effort: Pulmonary effort is normal. No respiratory distress. Breath sounds: Normal breath sounds. Abdominal: Palpations: Abdomen is soft. There is no mass. Tenderness: There is no abdominal tenderness. There is no guarding or rebound. Skin: General: Skin is warm and dry. Neurological: Mental Status: She is alert and oriented to person, place, and time. Motor: Weakness present. Comments: There is left sided weakness ED COURSE & MEDICAL DECISION MAKING CVA vs TIA, plan admit On 05/21/2022 I saw and examined the patient. I discussed the history and examination with the resident and agree with the plan of care. Franklin Lloyd MD 05/21/22 1620 * Zoila Mandel RPH - 05/21/2022 4:07 PM EDT Department of Pharmacy Emergency Department Stroke Alert Response Note Patient Name: Brittani Sage Room/Bed: E039/E039 A Pharmacist responded to the stroke alert. Confirmed via OSH records and fight crew report the patient was started on the following thrombolytic therapy prior to arrival: Alteplase Bolus: 9 mg given at 14:28. Alteplase Infusion: 81 mg/hr, (infusion rate 81 mL/hr) initiated at 14:29. Upon arrival thrombolytic therapy (tPA and saline chaser) Had not completely infused and therefore the transition to [facility] pump was facilitated. Instructed SHEN Engle to infuse 0.9% sodium chlorideat 81 mL/hr (rate of thrombolytic infusion) in the same line for one hour after completion of alteplase infusion. This IHIS order set [facility] IP ED: Confirmed Stroke/ICH - Secondary was placed by Dr. Monson for ongoing care. Verified orders for anti-hypertensive therapy with correct blood pressure goals (SBP <180 mmHg / DBP <105 mmHg) and post-tPA bleeding precautions have been placed. Please feel free to contact me with any further questions. Name: Zoila Mandel RPH Phone: [phone] Date/Time: 05/21/2022 4:07 PM * SULMA Grajeda - 05/21/2022 4:04 PM EDT SW responded to Level A Stroke s/p TPA transferred from [facility] transport by [facility]. Per [facility], patient's family is en route to this ED, no contact information provided. SW contacted OSH who provided the following emergency contacts: Mariposa Sage (Daughter) [phone] Enrique Sage (Son) [phone] SW to remain available as needed. GLENNA Vanessa, [facility], [facility] Local Tanker Truck Driver, Emergency Department [id number] * Aga Light RN - 05/21/2022 3:55 PM EDT Pt arrives to ED from OSH with c/o left sided facial droop and slurred speech. Patient was at lunchwhen friends noticed symptoms. LKW 1345. Pt received TPA TPA bolus 1428 TPA infusion 1429 Flush started 1530 Pt arrives a/ox4 with no other complaints at this time * Liliana Bhat RN - 05/21/2022 3:53 PM EDT Bed: E039 Expected date: Expected time: Means of arrival: Comments: Stroke Alert * Francoise Monson MD - 05/21/2022 3:43 PM EDT DEPARTMENT OF EMERGENCY MEDICINE CHIEF COMPLAINT No chief complaint on file. HPI Brittani Sage is a 77 y.o. female with unknown PMH who presents as a transfer from an outside hospital as a level 1 stroke alert. LWK 1330. Reports patient was eating lunch when friends noticed R sided facial droop, slurred speech, L sided weakness. Telestroked, s/p TPA at 1430. R M1 occlusion onOSH scan. REVIEW OF SYSTEMS Review of systems cannot be completed due to acuity of events. PAST MEDICAL HISTORY No past medical history on file. SURGICAL HISTORY No past surgical history on file. CURRENT MEDICATIONS Current Facility-Administered Medications Medication Dose Route Frequency Provider Last Rate Last Admin lidocaine 1% (PF) (XYLOCAINE MPF) 1 % injection 0.3 mL 0.3 mL Infiltration Once PRN Francoise Monson MD No current outpatient medications on file. ALLERGIES Not on File FAMILY HISTORY No family history on file. SOCIAL HISTORY Social History Socioeconomic History Marital status: Not on file Spouse name: Not on file Number of children: Not on file Years of education: Not on file Highest education level: Not on file Occupational History Not on file Tobacco Use Smoking status: Not on file Smokeless tobacco: Not on file Substance and Sexual Activity Alcohol use: Not on file Drug use: Not on file Sexual activity: Not on file Other Topics Concern Not on file Social History Narrative Not on file Social Determinants of Health Financial Resource Strain: Not on file Food Insecurity: Not on file Transportation Needs: Not on file Physical Activity: Not on file Stress: Not on file Social Connections: Not on file Intimate Partner Violence: Not on file Housing Stability: Not on file PHYSICAL EXAM There were no vitals taken for this visit. Physical Exam Vitals and nursing note reviewed. Constitutional: Appearance: Normal appearance. She is normal weight. HENT: Head: Normocephalic and atraumatic. Nose: Nose normal. Mouth/Throat: Mouth: Mucous membranes are moist. Pharynx: Oropharynx is clear. Eyes: General: No visual field deficit. Extraocular Movements: Extraocular movements intact. Pupils: Pupils are equal, round, and reactive to light. Cardiovascular: Rate and Rhythm: Normal rate and regular rhythm. Pulses: Normal pulses. Heart sounds: Normal heart sounds. Pulmonary: Effort: Pulmonary effort is normal. Breath sounds: Normal breath sounds. Abdominal: General: Bowel sounds are normal. Palpations: Abdomen is soft. Musculoskeletal: General: Normal range of motion. Cervical back: Normal range of motion. Skin: General: Skin is warm. Capillary Refill: Capillary refill takes less than 2 seconds. Neurological: General: No focal deficit present. Mental Status: She is alert and oriented to person, place, and time. Cranial Nerves: Cranial nerves are intact. No cranial nerve deficit, dysarthria or facial asymmetry. Sensory: Sensation is intact. Motor: Weakness present. Coordination: Coordination is intact. Comments: LUE, LLE weakness Psychiatric: Mood and Affect: Mood normal. Behavior: Behavior normal. ED COURSE & MEDICAL DECISION MAKING Assessment: Brittani Sage is a 77 y.o. female who presents as a Level 1 stroke alert with the following neurological deficits: LUE, LLE weakness. The patient was met in the CT scanner by myself andthe neurology resident. The patient was found to be hemodynamically stable and protecting airway. DDx: cerebrovascular accident, transient ischemic attack, complex migraine, seizure, metabolic abnormalities, intracranial mass Plan: - Stroke Alert - Labs: CBC, chemistries, coags, LFTs, POC glucose - Imaging: CT Head w/o contrast, CTA, CT Perfusion - BP control - Neuro checks - Neurovascular consult ED Course and Medical Decision-Making: The patient has persistent symptoms. The patient was found to be a TPA candidate and per neurology did Receive at OSH. The patient will therefore require inpatient admission for further management. This note was dictated using [employer] Dictation Software. Attempts at proofreading have been made, however errors may still occasionally occur. Francoise Monson MD Resident 05/21/22 1619 documented in this [facility]07-23-2022 Emergency department Note* Zoila Mandel, [facility] - 05/21/2022 4:07 PM EDT Department of Pharmacy Emergency Department Stroke Alert Response Note Patient Name: Brittani Sage Room/Bed: E039/E039 A Pharmacist responded to the stroke alert. Confirmed via OSH records and fight crew report the patient was started on the following thrombolytic therapy prior to arrival: Alteplase Bolus: 9 mg given at 14:28. Alteplase Infusion: 81 mg/hr, (infusion rate 81 mL/hr) initiated at 14:29. Upon arrival thrombolytic therapy (tPA and saline chaser) Had not completely infused and therefore the transition to [facility] pump was facilitated. Instructed SHEN Engle to infuse 0.9% sodium chlorideat 81 mL/hr (rate of thrombolytic infusion) in the same line for one hour after completion of alteplase infusion. This IHIS order set [facility] IP ED: Confirmed Stroke/ICH - Secondary was placed by Dr. Monson for ongoing care. Verified orders for anti-hypertensive therapy with correct blood pressure goals (SBP <180 mmHg / DBP <105 mmHg) and post-tPA bleeding precautions have been placed. Please feel free to contact me with any further questions. Name: Zoila Mandel RPH Phone: [phone] Date/Time: 05/21/2022 4:07 PM [facility] Work Phone: [phone] Emergency department Note* SULMA Grajeda - 05/21/2022 4:04 PM EDT SW responded to Level A Stroke s/p TPA [facility], patient's family is en route to this ED, no contact information provided. STANLEY contacted OS who provided the following emergency contacts: Mariposa Sage (Daughter) [phone] Enrique Sage (Son) [phone] SW to remain available as needed. GLENNA Vanessa, [facility], [facility] Local Tanker Truck Driver, Emergency Department [id number] [facility]07-23-2022 Note* Research Note - Edwige Monson MD - 05/21/2022 4:00 PM EDT ENDOLOW research note The patient is a 77 year old female who was LKN 135p and developed left hemiparesis while eating lunch. Patient taken to OSH ER [place] and telestroke showed NIHSS 2. Patient received IVtPA at 228p CT brain negative, CT angiogram head/neck shows right MCA occlusion. On arrival NIHSS 4 CT brain negative for acute changes. ASPECT 10. CT angiogram head/neck shows right m1 occlusion. The patient was enrolled into ENDOLOW trial by research coordinator Vandana Hernandes. Patient randomized to medical arm. Edwige Monson MD [facility] Work Phone: [phone] Emergency department Note* Aga Light RN - 05/21/2022 3:55 PM EDT Pt arrives to ED from OSH with c/o left sided facial droop and slurred speech. Patient was at lunchwhen friends noticed symptoms. LKW 1345. Pt received TPA TPA bolus 1428 TPA infusion 1429 Flush started 1530 Pt arrives a/ox4 with no other complaints at this time [facility]07-23-2022 Emergency department Note* Liliana Bhat RN - 05/21/2022 3:53 PM EDT Bed: E039 Expected date: Expected time: Means of arrival: Comments: Stroke Alert [facility]07-23-2022 History and physical note* Michele Kingsley DO - 05/21/2022 3:45 PM EDT Neurovascular Evaluation Note Evaluation Date: 05/21/2022 Unit: 1080/A Consultation was requested by Dr. Sharon Castellanos MD Patient status: Inpatient Length of stay: 0 days Reason for Consult/Chief Complaint Transfer for Left sided weakness, Left facial droop, and dysarthria. History of Present Illness Brittani Sage is a 77 y.o. Right handed female with PMH significant for HTN and HLD who presents with left-sided upper and lower extremity weakness, left facial droop, dysarthria. Last known well was approximately 13 30 today when she was having lunch with a friend. At that time per report, the patient's friend noticed that she was unable to move her left upper extremity during lunch and had garbled speech. EMS was contacted and was subsequently transferred to their local emergency department. At that time was seen by tele stroke by Dr. Castellanos, and was considered a tPA candidate. NIH stroke scale at that time was 2. CT head showed a right hyperdense sign consistent with right MCA occlusion. She was subsequently transferred to [facility] for additional care after obtaining tPA at approximately 2:28 p.m. Upon my interview with the patient, she was awake alert oriented was able to follow commands and answer questions. The patient was consented for Endolow study. Per report from EMS, the patient was given 1 mg of Ativan however rationale was not elicited at that time. Blood pressure 141/69, glucose 166, tPA infusion running since 1439. Point of care glucose 136, Chem 7 unremarkable, magnesium 1.8 calcium 8.1, albumin 3.3. INR 1.1, PT 14.3, CBC unremarkable. A stroke alert was called for STAT consultation. Review of Systems Otherwise unremarkable unless mentioned in history of present illness Neurovascular-specific History / Information Home antiplatelet/anticoagulation therapy: None Patient Current Risk Factors: Stroke risk factors include hypertension or hyperlipidemia. Prior stroke history: no. Family Hx of Stroke: Parents: unknown Siblings: unknown Stroke Diagnostic/Treatment Eligibility Information TPA given at 1428 outside hospital. Stroke Clinical Assessment Information: NIHSS (Provider) Flowsheet Row First Filed Value Provider NIH Stroke Scale NIH Interval (Provider) admission filed on 05/21/2022 1550 NIH Level of Conciousness (Provider) 0 filed on 05/21/2022 1550 NIH LOC Questions (Provider) 0 filed on 05/21/2022 1550 NIH LOC Commands (Provider) 0 filed on 05/21/2022 1550 NIH Best Gaze (Provider) 0 filed on 05/21/2022 1550 NIH Visual (Provider) 0 filed on 05/21/2022 1550 NIH Facial Palsy (Provider) 1 filed on 05/21/2022 1550 NIH Left Arm Motor (Provider) 1 filed on 05/21/2022 1550 NIH Right Arm Motor (Provider) 0 filed on 05/21/2022 1550 NIH Left Leg Motor (Provider) 1 filed on 05/21/2022 1550 NIH Right Leg Motor (Provider) 0 filed on 05/21/2022 1550 NIH Limb Ataxia (Provider) 1 filed on 05/21/2022 1550 NIH Sensory (Provider) 0 filed on 05/21/2022 1550 NIH Best Language (Provider) 0 filed on 05/21/2022 1550 NIH Dysarthria (Provider) 0 filed on 05/21/2022 1550 NIH Extinction and Inattention (Provider) 0 filed on 05/21/2022 1550 NIH Total Score (Provider) 4 filed on 05/21/2022 1550 Is NIH=0 Within 180 min of Last Known Well Time? -- Stroke Scales Flowsheet Row Most Recent Value Modified [place] Scale Score Premorbid (MRSS) 0 filed on 05/21/2022 1550 NIH Total Score (Provider) 13 filed on 05/21/2022 1911 Past Medical History Hypertension, hyperlipidemia Medical History: No past medical history on file. SURGICAL HISTORY: No past surgical history on file. SOCIAL HISTORY: Medications PRIOR TO ARRIVAL MEDS: Prior to Admission medications Not on File Current Meds: Current Facility Administered Meds: Current Facility-Administered Medications Medication Dose Route Frequency Provider Last Rate Last Admin acetaminophen (TYLENOL) tablet 325 mg 325 mg Oral Q4H PRN Michele R Kingsley, DO Or acetaminophen (TYLENOL) tablet 325 mg 325 mg Per NG tube Q4H PRN Michele R Kingsley, DO Or acetaminophen (TYLENOL) tablet 650 mg 650 mg Oral Q4H PRN Michele R Kingsley, DO Or acetaminophen (TYLENOL) tablet 650 mg 650 mg Per NG tube Q4H PRN Michele R Kingsley, DO hydrALAZINE (APRESOLINE) injection 5 mg 5 mg Intravenous Q6H PRN Michele R Kingsley, DO labetalol (NORMODYNE) injection 10 mg 10 mg Intravenous Q6H PRN Michele R Kingsley, DO 10 mg at lidocaine 1% (PF) (XYLOCAINE MPF) 1 % injection 0.3 mL 0.3 mL Infiltration Once PRN Francoise Monson MD polyethylene glycol (MIRALAX) packet 17 g 17 g Oral Daily PRN Michele R Kingsley, DO Or polyethylene glycol (MIRALAX) packet 17 g 17 g Per NG tube Daily PRN Michele R Kingsley, DO senna (SENOKOT) tablet 8.6 mg 8.6 mg Oral QAM Michele R Kingsley, DO Or senna (SENOKOT) tablet 8.6 mg 8.6 mg Per NG tube QAM Michele R Kingsley, DO sodium chloride 0.9% IV solution Intravenous Continuous Francoise Monson MD 75 mL/hr at 05/21/22 1637 New Bag at 05/21/22 1637 sodium chloride 0.9% IV solution Intravenous Continuous Michele R Kingsley, DO 75 mL/hr at 05/21/22 1638New Bag at 05/21/22 1638 Facility-Administered Medications Ordered in Other Encounters Medication Dose Route Frequency Provider Last Rate Last Admin lactated ringers IV solution Intravenous Continuous PRN Lewis Stone MD New Bag at 05/21/22 1930 Scheduled Meds: senna 8.6 mg Oral QAM Or senna 8.6 mg Per NG tube QAM Continuous Infusions: sodium chloride 0.9% 75 mL/hr at 05/21/22 1637 sodium chloride 0.9% 75 mL/hr at 05/21/22 1638 PRN Meds:acetaminophen OR acetaminophen OR acetaminophen OR acetaminophen, hydrALAZINE,labetalol, lidocaine 1% (PF), polyethylene glycol OR polyethylene glycol Vitals Objective Findings: Vital Signs (24hrs): Temp: [97.9 F (36.6 C)] 97.9 F (36.6 C) Pulse (Heart Rate): [63-68] 65 Resp Rate: [18-31] 31 BP: (133-206)/(60-83) 166/79 O2 Sat (%): [94 %-98 %] 97 % There is no height or weight on file to calculate BMI. Lines/Drains/Airways/Wounds: Patient Lines/Drains/Airways Status Active Lines, Drains, Airways, & Wound Overview None Physical Exam General: Laying comfortably in bed; in no acute distress. CV: RRR. Pulmonary: No increased work of breathing, equal chest rise bilaterally, no audible wheezing. Abdomen: soft, non-tender Ext: No cyanosis, edema, or deformity Skin: No rash Neurological Examination Psych and Mental status: alert; oriented to person, place, year, and month; good attention Speech/language: fluent; comprehension intact; object naming intact; repetition intact Cranial nerves: CN II visual diaz full to confrontation without visual extinction CN III, IV, PERRL. EOMI. CN V facial sensation intact to light touch bilaterally in V1, V2, V3 CN VII face, smile, eyebrow raise/closure symmetric CN VIII hearing grossly intact to voice CN IX & X soft palate elevates symmetrically in the midline, no dysarthria CN XI shoulder shrug full strength bilaterally CNXII tongue protrudes midline Motor: Normal bulk and tone. Right Arm: no drift Left Arm: mild drift Right Leg: no drift Left Leg: mild drift SA EE EF WE WF DI HF KE KF DF PF Right 5 5 5 5 5 5 5 5 5 5 5 Left 4 4 4 4 4 4 4 4 4 4 4 Reflexes: Right Left Comments Biceps 2 2 Triceps Brachioradialis 2 2 Patellar 2 2 Achilles 2 2 Jaw jerk Morrison Babinski Down Down Coordination: Wiacdx-ze-gidn intact bilaterally. Apow-vw-hyfg intact bilaterally. Rapid alternatingmovements are normal. Sensation: intact to light touch throughout without extinction. Gait: Unable to assess as patient was to be evaluated CT scanner. Laboratory Results Diagnostics/Procedures: Labs-CBC WBC/Hgb/Hct/Plts: 10.42/12.5/38.4/201 (05/21 1603) Labs-Chem 7([facility]) Bun/Creat/Cl/CO2/Glucose: 22/0.92/109/26/149 (05/21 160) Na/K+/Phos/Mg/Ca: 140/4.0/3.3/1.8/8.1 (05/21 160) Labs-Coags Ptt/Pt/Inr: 26.6/14.3/1.1 (05/21 1603) Additional Labs No results found for: CHOLESTEROL, TRIG, HDL, LDLCALC, LDLDIRECT Labs-Hemoglobin A1C No results found for: HGBA1C Imaging CT Stroke Head: IMPRESSION: No acute hemorrhage or mass effect. CTA Brain/Neck: IMPRESSION: 1. Right M1 segment occlusion with distal reconstitution. The other intracranial vessels are patent. 2. Incidentally noted 1.3 cm right thyroid nodule. Nonemergent outpatient thyroid ultrasound could be performed for further evaluation. Assessment/Impression Brittani Sage is a 77 y.o. Right handed female with PMH significant for HTN and HLD who presents with left-sided upper and lower extremity weakness, left facial droop, dysarthria. Last known well was approximately 13 30 today when she was having lunch with a friend Right M1 Occlusion Leading to Ischemic Stroke Last known well [address] head at outside hospital revealing right M1 occlusion hyperdense sign identified. TPA given at outside hospital approximately 1428. Of transferred to [facility] for additional evaluation. CT angiogram consistent with right M1 occlusion, localizing with the aforementioned deficits. Plan -Please admit to neurovascular service, attending Dr. Castellanos. An ischemic stroke with IV tPA orderset has been signed and held. -Swallow evaluation prior to any oral intake -Blood pressure goals for 24 hours post IV tPA are BP less than 180/105. Utilize PRN medications. -Standard post IV tPA vital sign and neuro-assessments. -Follow up head CT 24 hours after receiving IV tPA at 1428 -No anticoagulation, antiplatelet therapy and pharmacological DVT prophylaxis within 24 hours of receiving IV tPA and until a follow up head CT/MRI has been completed to rule out hemorrhage -Obtain brain MRI, stroke protocol -ECHO to evaluate cardiac function -Lipid panel, LFTs and HgbA1c to evaluate secondary risk factors for ischemic stroke -Baseline EKG, if not done in ED. Continuous telemetry -PT, OT, Speech and social insurance analyst consults This plan has been discussed with stroke Attending Dr. Castellanos and has been communicated to ED team. Michele Kingsley DO 05/21/2022 7:47 PM Other medical problems: Code Status: Full Code DVT prophylaxis: SCDs Diet: DIET NPO WITHOUT meds Signed, Michele Kingsley MS, DO [facility] Department of Neurology, PGY 2 Pager [phone] I saw and personally examined the patient today with the resident/fellow. I discussed the findings and therapeutic plan with the resident/fellow. I agree with the history, physical examination, and medical decisions as outlined. [facility]07-23-2022 History and physical note* Michele Kingsley DO - 05/21/2022 3:45 PM EDT Neurovascular Evaluation Note Evaluation Date: 05/21/2022 Unit: 1080/A Consultation was requested by Dr. Sharon Castellnaos MD Patient status: Inpatient Length of stay: 0 days Reason for Consult/Chief Complaint Transfer for Left sided weakness, Left facial droop, and dysarthria. History of Present Illness Brittani Sage is a 77 y.o. Right handed female with PMH significant for HTN and HLD who presents with left-sided upper and lower extremity weakness, left facial droop, dysarthria. Last known well was approximately 13 30 today when she was having lunch with a friend. At that time per report, the patient's friend noticed that she was unable to move her left upper extremity during lunch and had garbled speech. EMS was contacted and was subsequently transferred to their local emergency department. At that time was seen by tele stroke by Dr. Castellanos, and was considered a tPA candidate. NIH stroke scale at that time was 2. CT head showed a right hyperdense sign consistent with right MCA occlusion. She was subsequently transferred to [facility] for additional care after obtaining tPA at approximately 2:28 p.m. Upon my interview with the patient, she was awake alert oriented was able to follow commands and answer questions. The patient was consented for Endolow study. Per report from EMS, the patient was given 1 mg of Ativan however rationale was not elicited at that time. Blood pressure 141/69, glucose 166, tPA infusion running since 1439. Point of care glucose 136, Chem 7 unremarkable, magnesium 1.8 calcium 8.1, albumin 3.3. INR 1.1, PT 14.3, CBC unremarkable. A stroke alert was called for STAT consultation. Review of Systems Otherwise unremarkable unless mentioned in history of present illness Neurovascular-specific History / Information Home antiplatelet/anticoagulation therapy: None Patient Current Risk Factors: Stroke risk factors include hypertension or hyperlipidemia. Prior stroke history: no. Family Hx of Stroke: Parents: unknown Siblings: unknown Stroke Diagnostic/Treatment Eligibility Information TPA given at 1428 outside hospital. Stroke Clinical Assessment Information: NIHSS (Provider) Flowsheet Row First Filed Value Provider NIH Stroke Scale NIH Interval (Provider) admission filed on 05/21/2022 1550 NIH Level of Conciousness (Provider) 0 filed on 05/21/2022 1550 NIH LOC Questions (Provider) 0 filed on 05/21/2022 1550 NIH LOC Commands (Provider) 0 filed on 05/21/2022 1550 NIH Best Gaze (Provider) 0 filed on 05/21/2022 1550 NIH Visual (Provider) 0 filed on 05/21/2022 1550 NIH Facial Palsy (Provider) 1 filed on 05/21/2022 1550 NIH Left Arm Motor (Provider) 1 filed on 05/21/2022 1550 NIH Right Arm Motor (Provider) 0 filed on 05/21/2022 1550 NIH Left Leg Motor (Provider) 1 filed on 05/21/2022 1550 NIH Right Leg Motor (Provider) 0 filed on 05/21/2022 1550 NIH Limb Ataxia (Provider) 1 filed on 05/21/2022 1550 NIH Sensory (Provider) 0 filed on 05/21/2022 1550 NIH Best Language (Provider) 0 filed on 05/21/2022 1550 NIH Dysarthria (Provider) 0 filed on 05/21/2022 1550 NIH Extinction and Inattention (Provider) 0 filed on 05/21/2022 1550 NIH Total Score (Provider) 4 filed on 05/21/2022 1550 Is NIH=0 Within 180 min of Last Known Well Time? -- Stroke Scales Flowsheet Row Most Recent Value Modified [place] Scale Score Premorbid (MRSS) 0 filed on 05/21/2022 1550 NIH Total Score (Provider) 13 filed on 05/21/2022 1911 Past Medical History Hypertension, hyperlipidemia Medical History: No past medical history on file. SURGICAL HISTORY: No past surgical history on file. SOCIAL HISTORY: Medications PRIOR TO ARRIVAL MEDS: Prior to Admission medications Not on File Current Meds: Current Facility Administered Meds: Current Facility-Administered Medications Medication Dose Route Frequency Provider Last Rate Last Admin acetaminophen (TYLENOL) tablet 325 mg 325 mg Oral Q4H PRN Michele R Kingsley, DO Or acetaminophen (TYLENOL) tablet 325 mg 325 mg Per NG tube Q4H PRN Michele R Kingsley, DO Or acetaminophen (TYLENOL) tablet 650 mg 650 mg Oral Q4H PRN Michele R Kingsley, DO Or acetaminophen (TYLENOL) tablet 650 mg 650 mg Per NG tube Q4H PRN Michele R Kingsley, DO hydrALAZINE (APRESOLINE) injection 5 mg 5 mg Intravenous Q6H PRN Michele R Kingsley, DO labetalol (NORMODYNE) injection 10 mg 10 mg Intravenous Q6H PRN Michele R Kingsley, DO 10 mg at lidocaine 1% (PF) (XYLOCAINE MPF) 1 % injection 0.3 mL 0.3 mL Infiltration Once PRN Francoise Monson MD polyethylene glycol (MIRALAX) packet 17 g 17 g Oral Daily PRN Michele R Kingsley, DO Or polyethylene glycol (MIRALAX) packet 17 g 17 g Per NG tube Daily PRN Michele R Kingsley, DO senna (SENOKOT) tablet 8.6 mg 8.6 mg Oral QAM Michele R Kingsley, DO Or senna (SENOKOT) tablet 8.6 mg 8.6 mg Per NG tube QAM Michele R Kingsley, DO sodium chloride 0.9% IV solution Intravenous Continuous Francoise Monson MD 75 mL/hr at 05/21/22 1637 New Bag at 05/21/22 1637 sodium chloride 0.9% IV solution Intravenous Continuous Michele R Kingsley, DO 75 mL/hr at 05/21/22 1638New Bag at 05/21/22 1638 Facility-Administered Medications Ordered in Other Encounters Medication Dose Route Frequency Provider Last Rate Last Admin lactated ringers IV solution Intravenous Continuous PRN Lewis Stone MD New Bag at 05/21/22 1930 Scheduled Meds: senna 8.6 mg Oral QAM Or senna 8.6 mg Per NG tube QAM Continuous Infusions: sodium chloride 0.9% 75 mL/hr at 05/21/22 1637 sodium chloride 0.9% 75 mL/hr at 05/21/22 1638 PRN Meds:acetaminophen OR acetaminophen OR acetaminophen OR acetaminophen, hydrALAZINE,labetalol, lidocaine 1% (PF), polyethylene glycol OR polyethylene glycol Vitals Objective Findings: Vital Signs (24hrs): Temp: [97.9 F (36.6 C)] 97.9 F (36.6 C) Pulse (Heart Rate): [63-68] 65 Resp Rate: [18-31] 31 BP: (133-206)/(60-83) 166/79 O2 Sat (%): [94 %-98 %] 97 % There is no height or weight on file to calculate BMI. Lines/Drains/Airways/Wounds: Patient Lines/Drains/Airways Status Active Lines, Drains, Airways, & Wound Overview None Physical Exam General: Laying comfortably in bed; in no acute distress. CV: RRR. Pulmonary: No increased work of breathing, equal chest rise bilaterally, no audible wheezing. Abdomen: soft, non-tender Ext: No cyanosis, edema, or deformity Skin: No rash Neurological Examination Psych and Mental status: alert; oriented to person, place, year, and month; good attention Speech/language: fluent; comprehension intact; object naming intact; repetition intact Cranial nerves: CN II visual diaz full to confrontation without visual extinction CN III, IV, PERRL. EOMI. CN V facial sensation intact to light touch bilaterally in V1, V2, V3 CN VII face, smile, eyebrow raise/closure symmetric CN VIII hearing grossly intact to voice CN IX & X soft palate elevates symmetrically in the midline, no dysarthria CN XI shoulder shrug full strength bilaterally CNXII tongue protrudes midline Motor: Normal bulk and tone. Right Arm: no drift Left Arm: mild drift Right Leg: no drift Left Leg: mild drift SA EE EF WE WF DI HF KE KF DF PF Right 5 5 5 5 5 5 5 5 5 5 5 Left 4 4 4 4 4 4 4 4 4 4 4 Reflexes: Right Left Comments Biceps 2 2 Triceps Brachioradialis 2 2 Patellar 2 2 Achilles 2 2 Jaw jerk Morrison Babinski Down Down Coordination: Yxoald-vn-wqul intact bilaterally. Silv-qq-wovw intact bilaterally. Rapid alternatingmovements are normal. Sensation: intact to light touch throughout without extinction. Gait: Unable to assess as patient was to be evaluated CT scanner. Laboratory Results Diagnostics/Procedures: Labs-CBC WBC/Hgb/Hct/Plts: 10.42/12.5/38.4/201 (05/21 1603) Labs-Chem 7([facility]) Bun/Creat/Cl/CO2/Glucose: 22/0.92/109/26/149 (05/21 1603) Na/K+/Phos/Mg/Ca: 140/4.0/3.3/1.8/8.1 (07/23 1603) Labs-Coags Ptt/Pt/Inr: 26.6/14.3/1.1 (05/21 160) Additional Labs No results found for: CHOLESTEROL, TRIG, HDL, LDLCALC, LDLDIRECT Labs-Hemoglobin A1C No results found for: HGBA1C Imaging CT Stroke Head: IMPRESSION: No acute hemorrhage or mass effect. CTA Brain/Neck: IMPRESSION: 1. Right M1 segment occlusion with distal reconstitution. The other intracranial vessels are patent. 2. Incidentally noted 1.3 cm right thyroid nodule. Nonemergent outpatient thyroid ultrasound could be performed for further evaluation. Assessment/Impression Brittani Sage is a 77 y.o. Right handed female with PMH significant for HTN and HLD who presents with left-sided upper and lower extremity weakness, left facial droop, dysarthria. Last known well was approximately 13 30 today when she was having lunch with a friend Right M1 Occlusion Leading to Ischemic Stroke Last known well [address] head at outside hospital revealing right M1 occlusion hyperdense sign identified. TPA given at outside hospital approximately 1428. Of transferred to [facility] for additional evaluation. CT angiogram consistent with right M1 occlusion, localizing with the aforementioned deficits. Plan -Please admit to neurovascular service, attending Dr. Castellanos. An ischemic stroke with IV tPA orderset has been signed and held. -Swallow evaluation prior to any oral intake -Blood pressure goals for 24 hours post IV tPA are BP less than 180/105. Utilize PRN medications. -Standard post IV tPA vital sign and neuro-assessments. -Follow up head CT 24 hours after receiving IV tPA at 1428 -No anticoagulation, antiplatelet therapy and pharmacological DVT prophylaxis within 24 hours of receiving IV tPA and until a follow up head CT/MRI has been completed to rule out hemorrhage -Obtain brain MRI, stroke protocol -ECHO to evaluate cardiac function -Lipid panel, LFTs and HgbA1c to evaluate secondary risk factors for ischemic stroke -Baseline EKG, if not done in ED. Continuous telemetry -PT, OT, Speech and social insurance analyst consults This plan has been discussed with stroke Attending Dr. Castellanos and has been communicated to ED team. Michele Kingsley DO 05/21/2022 7:47 PM Other medical problems: Code Status: Full Code DVT prophylaxis: SCDs Diet: DIET NPO WITHOUT meds Signed, Michele Kingsley MS, DO [facility] Department of Neurology, PGY 2 Pager [phone] I saw and personally examined the patient today with the resident/fellow. I discussed the findings and therapeutic plan with the resident/fellow. I agree with the history, physical examination, and medical decisions as outlined. [facility] Emergency department Note* Francoise Monson MD - 05/21/2022 3:43 PM EDT DEPARTMENT OF EMERGENCY MEDICINE CHIEF COMPLAINT No chief complaint on file. HPI Brittani Sage is a 77 y.o. female with unknown PMH who presents as a transfer from an outside hospital as a level 1 stroke alert. LWK 1330. Reports patient was eating lunch when friends noticed R sided facial droop, slurred speech, L sided weakness. Telestroked, s/p TPA at 1430. R M1 occlusion onOSH scan. REVIEW OF SYSTEMS Review of systems cannot be completed due to acuity of events. PAST MEDICAL HISTORY No past medical history on file. SURGICAL HISTORY No past surgical history on file. CURRENT MEDICATIONS Current Facility-Administered Medications Medication Dose Route Frequency Provider Last Rate Last Admin lidocaine 1% (PF) (XYLOCAINE MPF) 1 % injection 0.3 mL 0.3 mL Infiltration Once PRN Francoise Monson MD No current outpatient medications on file. ALLERGIES Not on File FAMILY HISTORY No family history on file. SOCIAL HISTORY Social History Socioeconomic History Marital status: Not on file Spouse name: Not on file Number of children: Not on file Years of education: Not on file Highest education level: Not on file Occupational History Not on file Tobacco Use Smoking status: Not on file Smokeless tobacco: Not on file Substance and Sexual Activity Alcohol use: Not on file Drug use: Not on file Sexual activity: Not on file Other Topics Concern Not on file Social History Narrative Not on file Social Determinants of Health Financial Resource Strain: Not on file Food Insecurity: Not on file Transportation Needs: Not on file Physical Activity: Not on file Stress: Not on file Social Connections: Not on file Intimate Partner Violence: Not on file Housing Stability: Not on file PHYSICAL EXAM There were no vitals taken for this visit. Physical Exam Vitals and nursing note reviewed. Constitutional: Appearance: Normal appearance. She is normal weight. HENT: Head: Normocephalic and atraumatic. Nose: Nose normal. Mouth/Throat: Mouth: Mucous membranes are moist. Pharynx: Oropharynx is clear. Eyes: General: No visual field deficit. Extraocular Movements: Extraocular movements intact. Pupils: Pupils are equal, round, and reactive to light. Cardiovascular: Rate and Rhythm: Normal rate and regular rhythm. Pulses: Normal pulses. Heart sounds: Normal heart sounds. Pulmonary: Effort: Pulmonary effort is normal. Breath sounds: Normal breath sounds. Abdominal: General: Bowel sounds are normal. Palpations: Abdomen is soft. Musculoskeletal: General: Normal range of motion. Cervical back: Normal range of motion. Skin: General: Skin is warm. Capillary Refill: Capillary refill takes less than 2 seconds. Neurological: General: No focal deficit present. Mental Status: She is alert and oriented to person, place, and time. Cranial Nerves: Cranial nerves are intact. No cranial nerve deficit, dysarthria or facial asymmetry. Sensory: Sensation is intact. Motor: Weakness present. Coordination: Coordination is intact. Comments: LUE, LLE weakness Psychiatric: Mood and Affect: Mood normal. Behavior: Behavior normal. ED COURSE & MEDICAL DECISION MAKING Assessment: Brittani Sage is a 77 y.o. female who presents as a Level 1 stroke alert with the following neurological deficits: LUE, LLE weakness. The patient was met in the CT scanner by myself andthe neurology resident. The patient was found to be hemodynamically stable and protecting airway. DDx: cerebrovascular accident, transient ischemic attack, complex migraine, seizure, metabolic abnormalities, intracranial mass Plan: - Stroke Alert - Labs: CBC, chemistries, coags, LFTs, POC glucose - Imaging: CT Head w/o contrast, CTA, CT Perfusion - BP control - Neuro checks - Neurovascular consult ED Course and Medical Decision-Making: The patient has persistent symptoms. The patient was found to be a TPA candidate and per neurology did Receive at OSH. The patient will therefore require inpatient admission for further management. This note was dictated using [employer] Dictation Software. Attempts at proofreading have been made, however errors may still occasionally occur. Francoise Monson MD Resident 05/21/22 [address] [facility] Work Phone: [phone]) 247-517806-01-2022 History of Present illness Narrative* Tammi DodsonRODRGIO.STEREOTYPE FINISHER - 03/30/2022 1:24 PM EDT Chief Complaint Patient presents with: Established Patient HPI: Britatni Sage is a 77 year old female who presents here today for follow up breast cancer. Per Dr. Spencer's previous note: H/o kidney stones, obstructive sleep apnea, hypertension, mixed hyperlipidemia, mitral valve prolapse, GERD, diverticulosis and glaucoma. Mammograms (outside films) 08/18/2020 IMPRESSION: 7.2 mm x 5.6 mm nodule in the slightly upper lateral anterior aspect of the right breast as described. Correlation with ultrasound is recommended. US right breast (outside films) 08/24/2020 IMPRESSION: 7 mm x 6 mm x 6 mm hypoechoic irregular nodule at the 10 o''clock position breast at 2 cm from nipple. 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 Estrogen Receptor (ER) Positive (>95%) Progesterone Receptor (PgR) Positive (90%) HER2 (ERBB2) IMMUNOHISTOCHEMISTRY ASSAY Interpretation: NEGATIVE for HER2 (ERBB2) Expression Score: 0 Underwent right breast lumpectomy via wire localization along with right axillary sentinel lymph node biopsy on 09/11/2020. Pathology: FROZEN SECTION DIAGNOSIS A. Right sentinel nodes, biopsy: Two out of two lymph nodes, negative for metastatic carcinoma. B. Additional right sentinel node biopsy: One lymph node, negative for metastatic carcinoma. MICROSCOPIC DIAGNOSIS A. Right sentinel lymph nodes, biopsy: Two out of two lymph nodes, negative for carcinoma. See comment. B. Additional right axillary sentinel lymph node biopsy: One out of one lymph node, negative for carcinoma. See comment. C. Right breast mass, lumpectomy: Invasive ductal carcinoma. See cancer checklist below. See comment. COMMENT INVASIVE BREAST CANCER SUMMARY: Procedure: Excision with wire guidance Specimen: Type: Partial breast Size: 6 x 6 x 4 cm Laterality: Right breast Invasive Tumor: Size: 1.2 x 1 x 1 cm Focality: Single focus of invasive carcinoma. Histologic type: Invasive ductal carcinoma. Histologic grade ([place] grade): Glandular/tubular differentiation score: 2 Nuclear pleomorphism score: 2 Mitotic count score: 2 Overall grade: 2 (score of 6) Lymphvascular invasion: Not identified Ductal Carcinoma In Situ: Estimated size (extent): <1 millimeter Number of blocks: 1 of 12 blocks Architectural pattern: Cribriform Nuclear grade: 1/3 Necrosis: Not present Lobular Carcinoma In Situ: Not present Tumor extension: Skin: Free of carcinoma Nipple: Not present Skeletal muscle: Not present Invasive Carcinoma Margin: Distance from closest margin: 10 millimeters from superior margin In Situ Carcinoma Margin: Distance from closest margin: 10 millimeters from superior margin Lymph Nodes: Number of sentinel lymph nodes examined: 3 Total number of lymph nodes examined: 3 No evidence of macrometastases, micrometastases or isolated tumor cells. See specimens A & B Microcalcifications: Focally present in non-neoplastic tissue. Treatment Effect: Unknown Additional Pathologic Findings: Focal atypical lobular hyperplasia, intraductal hyperplasia withoutatypia, fibrocystic change and changes of previous biopsy. Ancillary Studies: Previously performed on [facility] ([facility] [id number]) ER: Positive (>95%) AK: Positive (90%) Kfo5ayc: Negative (0) Clinical History: Abnormal mammogram PATHOLOGIC STAGE: pT1c N0 Mx Oncotype Dx RS 11; 3% (3-4%; 95% CI). Radiation not recommended. Current therapy:Arimidex Began 09/2020 No new concerns today. Appetite: Ravenous. Energy level: It's up and down. Denies fevers or recent illness. Resp:denies cough or sob Cardiac:denies chest pain/palpitations GI:denies abd pain, n/v, moving bowels regularly :denies dysuria/hematuria Extrem:chronic back pain-had back injections last week, denies pain elsewhere Endo:hot flashes Every now and then. Neuro:denies symptoms of neuropathy Skin:denies rashes Heme:denies bleeding The ROS is otherwise negative. Past medical history, appointments, medications, allergies reviewed. No changes. EXAM: BP 128/65 Pulse 63 Temp 36.4 C (97.5 F) (Temporal) Ht 156.2 cm (5' 1.5 ) Wt 95.3 kg (210 lb) BMI 39.04 kg/m APPEARANCE Well appearing, alert, in no acute distress, well-hydrated, well nourished. HEART RRR with normal S1 and S2, no murmurs LUNG clear to auscultation BREAST FEMALE no mass/nodule b/l, scar R lateral LYMPH NODES No cervical lymphadenopathy, No supraclavicular lymphadenopathy and No axillary lymphadenopathy. ABDOMEN bowel sounds normoactive, soft, non-tender, non-distended, without organomegaly or palpablemasses EXTREMITIES No edema NEURO Awake, alert and oriented x 3, Normal gait and No involuntary motions. SKIN Skin color, texture, turgor normal, no suspicious rashes or lesions ASSESSMENT/PLAN: 1. 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 - No concerning findings on exam. - Tolerating arimidex well. - Continue arimidex. - Mammogram due in 2021. Pt. this done at [facility]. - Follow up in 6 months. - Pt. aware to call office with any questions/concerns. The patient indicates understanding of these issues and agrees with the plan. All documentation from previous visit of 09/29/21-Dr. Spencer/myself was copied and pasted, documentation has been reviewed and edited as necessary for today's visit. Tammi Dodson APRN.MITZY documented in this encounter[facility]04-[facility]22 Miscellaneous Notes* Telephone Encounter - Nathalie Miller RN - 02/14/2022 9:45 AM EDT Patient calls and notified of results and providers instructions. Patient verbalizes understanding. Nathalie Miller RN * Telephone Encounter - Lili Cardenas MA - 02/14/2022 9:33 AM EDT Left additional message for patient to contact office. Lili Cardenas MA * Telephone Encounter - Nathalie Harper LPN - 02/12/2022 8:17 AM EDT Left message for pt to contact office. Nathalie Harper LPN * Telephone Encounter - Regina Nguyen PA-C - 02/11/2022 10:19 PM EDT Let patient know that urine cuture showed small amount of bacteria. Not a significant amount but given symptoms I want her to finish her atb. Let us know if not improving. documented in this encounterAccess [facility]04-14-[facility]22 Miscellaneous Notes* Telephone Encounter - Jazmyn John - 02/10/2022 3:58 PM EDT Patient Pat called back, she found medication all good. * Telephone Encounter - Zoila Park Ma - 02/10/2022 2:04 PM EDT Daughter was notified and will let mom know Zoila Park Ma * Telephone Encounter - Pao Raman RN - 02/10/2022 1:55 PM EDT Patient calls and states that she talked to pharmacy and antibiotic was never sent over yesterday. Talked and spoke with pharmacist at [facility]. Pharmacist states that patient had picked up antibiotic yesterday at 215 PM at the same time she had picked up losartan. Called patient to try and notified her of this, no answer, left message for patient to call back and speak with triage nurse. Pao Raman RN documented in this encounterAccess [facility]04-14-2022 Miscellaneous Notes* Telephone Encounter - Marian Gregg RN - 02/10/2022 11:36 AM EDT Pt called and is notified of providers results and instructions. Pt voices understanding. Marian Gregg RN * Telephone Encounter - Prabha Norwood Ma - 02/10/2022 9:17 AM EDT vm left with patient to contact office for results Prabha Norwood Ma * Telephone Encounter - Regina Nguyen PA-C - 02/10/2022 9:08 AM EDT Let patient know that a1c is 5.7% which is improving. Cholesterol is normal. Metabolic panel is normal. Urine does show some signs of infection. Will have to wait until culture is back to determine if the atb I gave her will help or not. Thanks. Regina Nguyen PA-C documented in this encounterAccess [facility]04-[facility]22 History of Present illness Narrative* Regina Nguyen PA-C - 02/09/2022 2:05 PM EDT Chief Complaint Patient presents with: Recheck HPI Brittani Sage is a 76 year old female who presents here today for Chronic Medical Conditions.. Patient with Hx of HTN, elevated A1c, hyperlipidemia, GERD, situational depression, obesity, insomnia, osteopenia as well as those reviewed and addressed below. Patient was treated for UTI last month. Had some improvement but over past week symptoms returning. Past medical history, appointments, medications, allergies reviewed. Previous Medical History PAST MEDICAL HISTORY Diagnosis Date Arthritis Carcinoma of upper-outer quadrant of right female breast (HCC) 08/2020 Class 2 obesity due to excess calories in adult 07/09/2018 Diverticulosis of colon 07/09/2018 Elevated hemoglobin A1c 01/09/2018 Essential hypertension 08/02/2013 Family history of GA (myocardial infarction) 12/18/2018 Dad and Brother in their 60's Generalized arthritis 01/04/2018 GERD without esophagitis 12/18/2018 Glaucoma 01/07/2019 History of kidney stones 01/10/2022 Lumbar spinal stenosis 02/2020 Malignant neoplasm of upper-outer quadrant of right breast in female, estrogen receptor positive ([facility]) 09/30/2020 Mixed hyperlipidemia 08/02/2013 Morbid obesity ([facility]) 07/09/2018 MVP (mitral valve prolapse) 08/02/2013 Obesity, Class III, BMI 40-49.9 (morbid obesity) ([facility]) 08/10/2020 CLAIRE (obstructive sleep apnea) Osteopenia, senile 07/31/2018 Primary insomnia 01/07/2019 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 Recurrent UTI 01/08/2015 Situational depression 02/04/2017 Trigger finger, left ring finger 07/09/2018 Urge incontinence 01/08/2015 Previous Surgical History PAST SURGICAL HISTORY Procedure Laterality Date ABDOMINAL SURGERY HX ARTHRP KNE CONDYLE&PLATU MEDIAL&LAT COMPARTMENTS Left 2005 BREAST LUMPECTOMY HX Right 09/11/2020 BREAST SURGERY HX BX/EXC LYMPH NODE OPEN DEEP AXILLARY NODE Right 08/2020 CARPAL TUNNEL COLONOSCOPY COLONOSCOPY FLX DX W/COLLJ SPEC WHEN PFRMD 09/07/2021 CYSTOCELE REPAIR EXCISION GANGLION WRIST DORSAL/VOLAR PRIMARY EYE SURGERY HX HAND SURGERY HX thumgb surg HYSTERECTOMY HX N/A 1992 JOINT REPLACEMENT HX LEXISCAN STRESS TEST 12/28/2018 negative LITHOTRIPSY / 1 SIDE MASTECTOMY, PARTIAL Right 08/2020 PAST SURGICAL HISTORY OF Right 2004 Partial Right Knee Replacement REPAIR RECTOCELE SEPARATE PROCEDURE STRESS TEST 01/19/2018 normal VAGINAL HYSTERECTOMY Family History FAMILY HISTORY Problem Relation Age of Onset Heart Mother CHF Hypertension Mother Diabetes Mother Coronary Artery Disease Father early 60's Stroke Father Alzheimer's Disease Sister Diabetes Sister other (lung cancer) Sister Colon Cancer Sister Diabetes Sister Heart Sister valve replacement Diabetes Sister Diabetes Brother other (lung cancer) Brother Coronary Artery Disease Brother 60's Asthma Son Hodgkin Lymphoma Daughter Thyroid Cancer Daughter Hypertension Daughter Breast Cancer Daughter Hypertension Daughter Obesity Daughter Patient Allergies ALLERGIES No Known Allergies Current Medications Current Outpatient Medications on File Prior to Visit Medication Sig anastrozole (ARIMIDEX) 1 mg tablet Take 1 tablet by mouth once daily. simvastatin (ZOCOR) 20 mg tablet Take 1 tablet by mouth once daily. losartan (COZAAR) 100 mg tablet Take 1 tablet by mouth once daily. ascorbic acid (VITAMIN C ORAL) Take 1 tablet by mouth once daily. ECHINACEA ORAL Take 1 tablet by mouth twice daily. loratadine (CLARITIN) 10 mg tablet Take 10 mg by mouth once daily. timolol maleate (TIMOPTIC) 0.5 % drpd Use 1 Drop in both eyes twice daily. cholecalciferol (VITAMIN D-3) 2,000 unit tablet Take 2,000 Units by mouth twice daily. zinc once daily. Lysine (L-LYSINE) 500 mg tab Take 2 tablets by mouth once daily. vitamin b complex (B COMPLEX 1) Tab Take 1 tablet by mouth once daily. Calcium Carbonate 500 mg calcium (1,250 mg) capsule Take 1,250 mg by mouth twice daily with meals. Sdohmnzbjavfr-Toixvrko-Bokrcf (CENTRUM SILVER) Tab Take 1 tablet by mouth once daily. No current facility-administered medications on file prior to visit. Social History Social History Tobacco Use Smoking status: Never Smoker Smokeless tobacco: Never Used Vaping Use Vaping Use: Never used Substance Use Topics Alcohol use: No Drug use: No Review of Symptoms REVIEW OF SYSTEMS GENERAL: No weight loss, malaise or fevers NECK: Negative for lumps, goiter, pain and significant neck swelling RESPIRATORY: Negative for cough, hemoptysis, wheezing, COPD, dyspnea or shortness of breath CARDIOVASCULAR: Negative for chest pain, leg swelling, CHF or palpitations : +urinary pain NEURO: No history of headaches, syncope, paralysis, seizures or tremors EXAM: BP 100/78 (BP Site: Left Arm, BP Position: Sitting, BP Cuff Size: Large Adult) Pulse 68 Temp 36.2 C (97.1 F) Resp 18 Wt 92.5 kg (204 lb) BMI 38.55 kg/m General Appearance: Well appearing, alert, in no acute distress, well-hydrated, well nourished. andObese. Neck: Supple, no adenopathy; thyroid symmetric, normal size, no bruits. Lungs: Lungs clear to auscultation. No wheezing, rhonchi, rales.. Heart: RRR without murmur, gallop, or rubs. No ectopy. Abdomen: Normal abdominal exam, Abdomen soft, non-tender. Bowel sounds normal. No masses, organomegaly. Extremities: No deformities, edema, skin discoloration, clubbing or cyanosis. Good capillary refill. . Peripheral Pulses: Normal. Health Maintenance List DTAP,TDAP,TD(2 - Tdap) due on 08/02/2010 SHINGRIX VACCINE(2 of 3) due on 11/07/2011 COVID-19 VACCINE(2 - Marcela risk 3-dose series) due on 02/09/2021 ADVANCE DIRECTIVE DISCUSSION Never done ANNUAL PCP TEAM CHRONIC DISEASE VISIT due on 01/10/2023 BP CONTROLLED (<130/80) due on 01/10/2023 DIABETES SCREEN due on 07/22/2024 COLORECTAL CANCER SCREENING due on 09/07/2024 BONE DENSITY Completed INFLUENZA Completed PNEUMOVAX AGE 65 AND OVER WITH 5YR LOOKBACK Completed MENINGOCOCCAL CONJUGATE Aged Out HEPATITIS C SCREENING Discontinued Data reviewed n/a ASSESSMENT/PLAN: 1. Essential hypertension - ICD9: 401.9, ICD10: I10 (primary diagnosis) - good control - Continue current medication(s) - Recommended regular aerobic exercise. - Recommend home blood pressure monitoring, to bring results in on next visit - Goal of BP <130/80 - SIMVASTATIN 20 MG TABLET - BASIC METABOLIC PNL 2. Mixed hyperlipidemia - ICD9: 272.2, ICD10: E78.2 - to be determined upon return of lab results - Encouraged following a low carbohydrate, healthy oil intake diet. - Continue current therapy. - LIPID PANEL, NONFASTING 3. Elevated hemoglobin A1c - ICD9: 790.29, ICD10: R73.09 Await labs - HGB A1C - BASIC METABOLIC PNL 4. Dysuria - ICD9: 788.1, ICD10: R30.0 recurrent - Send urine for culture - Begin treatment with Macrobid 100 mg BID for 7 days - Patient education for prevention given - URINE CULTURE - URINALYSIS, WITH MICROSCOPIC 5. Situational depression - ICD9: 309.0, ICD10: F43.21 stable 6. Obesity, Class III, BMI 40-49.9 (morbid obesity) (HCC) - ICD9: 278.01, ICD10: E66.01 Last 3 Encounter Wt Readings: Date: Wt: 02/09/2022 92.5 kg (204 lb) 01/10/2022 92.5 kg (204 lb) 09/29/2021 89.8 kg (198 lb) Stable - Behavioral intervention 7. Spinal stenosis of lumbar region, unspecified whether neurogenic claudication present - ICD9: 724.02, ICD10: M48.061 Continue with pain management 8. CLAIRE (obstructive sleep apnea) - ICD9: 327.23, ICD10: G47.33 Couldn't tolerate tx 9. Family history of GA (myocardial infarction) - ICD9: V17.3, ICD10: Z82.49 10. GERD without esophagitis - ICD9: 530.81, ICD10: K21.9 - Stable. F/u 6 months for wellness exam Regina Nguyen PA-C documented in this encounterAccess [facility]10-04-2013 History of Past illness Narrative* Problem Noted Date Resolved Date MVP (mitral valve prolapse) 08/02/201306/30 documented as of this encounter (statuses as of 02/09/2022) [facility] of [facility] illness Narrative* Problem Noted Date Resolved Date MVP (mitral valve prolapse) 08/02/201306/30 documented as of this encounter (statuses as of 02/10/2022) [facility] of Past illness Narrative* Problem Noted Date Resolved Date MVP (mitral valve prolapse) 08/02/201306/30 documented as of this encounter (statuses as of 02/14/2022) [facility] of Past illness Narrative* Problem Noted Date Resolved Date MVP (mitral valve prolapse) 08/02/201306/30 documented as of this encounter (statuses as of 03/30/2022) [place] [address]-04-2013 History of Past illness Narrative* Problem Noted Date Resolved Date MVP (mitral valve prolapse) 08/02/201306/30 documented as of this encounter (statuses as of 06/01/2022) [facility] of [facility] illness Narrative* Problem Noted Date Resolved Date MVP (mitral valve prolapse) 08/02/201306/30 documented as of this encounter (statuses as of 06/09/2022) [facility] of Past illness Narrative* Problem Noted Date Resolved Date MVP (mitral valve prolapse) 08/02/201306/30 documented as of this encounter (statuses as of 06/27/2022) [facility] of [facility] illness Narrative* Problem Noted Date Resolved Date MVP (mitral valve prolapse) 08/02/201306/30 documented as of this encounter (statuses as of 07/20/2022) [facility] of [facility] illness Narrative* Problem Noted Date Resolved Date MVP (mitral valve prolapse) 08/02/201306/30 documented as of this encounter (statuses as of 08/02/2022) [facility] of [facility] Narrative* Problem Noted Date Resolved Date MVP (mitral valve prolapse) 08/02/201306/30 documented as of this encounter (statuses as of 08/10/2022) [facility] of Past illness Narrative* Problem Noted Date Resolved Date MVP (mitral valve prolapse) 08/02/201306/30 documented as of this encounter (statuses as of 08/11/2022) [facility] of [facility] illness Narrative* Problem Noted Date Resolved Date MVP (mitral valve prolapse) 08/02/201306/30 documented as of this encounter (statuses as of 09/05/2022) [facility] of Past illness Narrative* Problem Noted Date Resolved Date MVP (mitral valve prolapse) 08/02/201306/30 documented as of this encounter (statuses as of 09/06/2022) [facility] of [facility] illness Narrative* Problem Noted Date Resolved Date MVP (mitral valve prolapse) 08/02/201306/30 documented as of this encounter (statuses as of 09/08/2022) [facility] of [facility] Narrative* Problem Noted Date Resolved Date MVP (mitral valve prolapse) 08/02/201306/30 documented as of this encounter (statuses as of 09/09/2022) [facility] of [facility] illness Narrative* Problem Noted Date Resolved Date MVP (mitral valve prolapse) 08/02/201306/30 documented as of this encounter (statuses as of 09/09/2022) [facility] of [facility] illness Narrative* Problem Noted Date Resolved Date MVP (mitral valve prolapse) 08/02/201306/30 documented as of this encounter (statuses as of 09/13/2022) [facility] of Past illness Narrative* Problem Noted Date Resolved Date MVP (mitral valve prolapse) 08/02/201306/30 documented as of this encounter (statuses as of 09/16/2022) [facility] Narrative* Problem Noted Date Resolved Date MVP (mitral valve prolapse) 08/02/201306/30 documented as of this encounter (statuses as of 09/20/2022) [facility] of [facility] Narrative* Problem Noted Date Resolved Date MVP (mitral valve prolapse) 08/02/201306/30 documented as of this encounter (statuses as of 09/23/2022) [facility] [facility] of Past illness Narrative* Problem Noted Date Resolved Date MVP (mitral valve prolapse) 08/02/201306/30 documented as of this encounter (statuses as of 09/26/2022) [facility] History of Past illness Narrative* Problem Noted Date Resolved Date MVP (mitral valve prolapse) 08/02/201306/30 documented as of this encounter (statuses as of 09/29/2022) [facility] History of Past illness Narrative* Problem Noted Date Resolved Date MVP (mitral valve prolapse) 08/02/201306/30 documented as of this encounter (statuses as of 09/30/2022) [facility] History of Past illness Narrative* Problem Noted Date Resolved Date MVP (mitral valve prolapse) 08/02/201306/30 documented as of this encounter (statuses as of 10/19/2022) [facility] History of Past illness Narrative* Problem Noted Date Resolved Date MVP (mitral valve prolapse) 08/02/201306/30 documented as of this encounter (statuses as of 12/23/2022) [facility] History of Past illness Narrative* Problem Noted Date Resolved Date MVP (mitral valve prolapse) 08/02/201306/30 documented as of this encounter (statuses as of 12/30/2022) [facility] History of Past illness Narrative* Problem Noted Date Resolved Date MVP (mitral valve prolapse) 08/02/201306/30 documented as of this encounter (statuses as of 01/02/2023) [facility] History of Past illness Narrative* Problem Noted Date Resolved Date MVP (mitral valve prolapse) 08/02/201306/30 documented as of this encounter (statuses as of 01/13/2023) [facility] History of Past illness Narrative* Problem Noted Date Resolved Date MVP (mitral valve prolapse) 08/02/201306/30 documented as of this encounter (statuses as of 01/18/2023) [facility] History of Past illness Narrative* Problem Noted Date Resolved Date MVP (mitral valve prolapse) 08/02/201306/30 documented as of this encounter (statuses as of 02/10/2023) [facility] History of Past illness Narrative* Problem Noted Date Resolved Date MVP (mitral valve prolapse) 08/02/201306/30 documented as of this encounter (statuses as of 02/13/2023) [facility] History of Past illness Narrative* Problem Noted Date Resolved Date MVP (mitral valve prolapse) 08/02/201306/30 documented as of this encounter (statuses as of 02/21/2023) [facility] History of Past illness Narrative* Problem Noted Date Resolved Date MVP (mitral valve prolapse) 08/02/201306/30 documented as of this encounter (statuses as of 03/09/2023) [facility] History of Past illness Narrative* Problem Noted Date Resolved Date MVP (mitral valve prolapse) 08/02/201306/30 documented as of this encounter (statuses as of 03/10/2023) [facility] History of Past illness Narrative* Problem Noted Date Resolved Date MVP (mitral valve prolapse) 08/02/201306/30 documented as of this encounter (statuses as of 03/15/2023) [facility] History of Past illness Narrative* Problem Noted Date Resolved Date MVP (mitral valve prolapse) 08/02/201306/30 documented as of this encounter (statuses as of 03/28/2023) [facility] History of Past illness Narrative* Problem Noted Date Resolved Date MVP (mitral valve prolapse) 08/02/201306/30 documented as of this encounter (statuses as of 03/30/2023) [facility] History of Past illness Narrative* Problem Noted Date Resolved Date MVP (mitral valve prolapse) 08/02/201306/30 documented as of this encounter (statuses as of 03/31/2023) [facility] History of Past illness Narrative* Problem Noted Date Resolved Date MVP (mitral valve prolapse) 08/02/201306/30 documented as of this encounter (statuses as of 03/31/2023) [facility] History of Past illness Narrative* Problem Noted Date Resolved Date MVP (mitral valve prolapse) 08/02/201306/30 documented as of this encounter (statuses as of 04/03/2023) [facility] History of Past illness Narrative* Problem Noted Date Resolved Date MVP (mitral valve prolapse) 08/02/201306/30 documented as of this encounter (statuses as of 04/20/2023) [facility] History of Past illness Narrative* Problem Noted Date Diagnosed Date Resolved Date MVP (mitral valve prolapse) 08/02/2013 07/11/2019 documented as of this encounter (statuses as of 05/11/2023) [facility] History of Past illness Narrative* Problem Noted Date Diagnosed Date Resolved Date MVP (mitral valve prolapse) 08/02/2013 07/11/2019 documented as of this encounter (statuses as of 06/07/2023) [facility] History of Past illness Narrative* Problem Noted Date Diagnosed Date Resolved Date MVP (mitral valve prolapse) 08/02/2013 07/11/2019 documented as of this encounter (statuses as of 06/13/2023) [facility] History of Past illness Narrative* Problem Noted Date Diagnosed Date Resolved Date MVP (mitral valve prolapse) 08/02/2013 07/11/2019 documented as of this encounter (statuses as of 06/16/2023) [facility] History of Past illness Narrative* Problem Noted Date Diagnosed Date Resolved Date MVP (mitral valve prolapse) 08/02/2013 07/11/2019 documented as of this encounter (statuses as of 09/03/2023) [facility] History of Past illness Narrative* Problem Noted Date Diagnosed Date Resolved Date MVP (mitral valve prolapse) 08/02/2013 07/11/2019 documented as of this encounter (statuses as of 09/03/2023) [facility] History of Past illness Narrative* Problem Noted Date Diagnosed Date Resolved Date MVP (mitral valve prolapse) 08/02/2013 07/11/2019 documented as of this encounter (statuses as of 09/03/2023) [facility] History of Past illness Narrative* Problem Noted Date Diagnosed Date Resolved Date MVP (mitral valve prolapse) 08/02/2013 07/11/2019 documented as of this encounter (statuses as of 09/03/2023) [facility] Essential hypertension- Primary Unspecified essential hypertension Mixed hyperlipidemia Elevated hemoglobin A1c Other abnormal blood chemistry Dysuria Situational depression Adjustment disorder with depressed mood Obesity, Class III, BMI 40-49.9 (morbid obesity) (HCC) Morbid obesity Spinal stenosis of lumbar region, unspecified whether neurogenic claudication present CLAIRE (obstructive sleep apnea) Obstructive sleep apnea (adult) (pediatric) Family history of GA (myocardial infarction) Family history of ischemic heart disease GERD without esophagitis Esophageal reflux [facility] Diagnosis Malignant neoplasm of upper-outer quadrant of right breast in female, estrogen receptor positive (HCC)- Primary Encounter for screening mammogram for high-risk patient [facility] Diagnosis Ischemic stroke- Primary Cerebrovascular accident (CVA), unspecified mechanism Cerebral infarction due to unspecified occlusion or stenosis of right middle cerebral artery Other cerebrovascular vasospasm and vasoconstriction Electrolyte disorder (K, Cl, or Na) Electrolyte and fluid disorders not elsewhere classified [facility] Cerebrovascular accident (CVA) due to occlusion of cerebral artery (HCC)- Primary Essential hypertension Unspecified essential hypertension Situational depression Adjustment disorder with depressed mood [facility] Diagnosis Cerebrovascular accident (CVA) due to occlusion of cerebral artery (HCC)- Primary CLAIRE (obstructive sleep apnea) Obstructive sleep apnea (adult) (pediatric) Situational depression Adjustment disorder with depressed mood [facility] Diagnosis CLAIRE (obstructive sleep apnea)- Primary Obstructive sleep apnea (adult) (pediatric) [facility] Diagnosis CLAIRE (obstructive sleep apnea) Obstructive sleep apnea (adult) (pediatric) [facility] Diagnosis 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)- Primary Cerebral thrombosis with cerebral infarction Cerebrovascular accident (CVA) due to occlusion of cerebral artery (HCC) CLAIRE (obstructive sleep apnea) Obstructive sleep apnea (adult) (pediatric) [facility] Diagnosis Abnormal mammogram of left breast- Primary [facility] Diagnosis Medicare annual wellness visit, subsequent- Primary Routine general medical examination at a health care facility Essential hypertension Unspecified essential hypertension Mixed hyperlipidemia Elevated hemoglobin A1c Other abnormal blood chemistry Cerebrovascular accident (CVA) due to occlusion of cerebral artery (HCC) GERD without esophagitis Esophageal reflux Situational depression Adjustment disorder with depressed mood Primary insomnia Persistent disorder of initiating or maintaining sleep CLAIRE (obstructive sleep apnea) Obstructive sleep apnea (adult) (pediatric) Obesity, Class II, BMI 35-39.9 Obesity, unspecified Malignant neoplasm of upper-outer quadrant of right breast in female, estrogen receptor positive (HCC) Spinal stenosis of lumbar region, unspecified whether neurogenic claudication present Acute pain of right shoulder Urge incontinence Medication management Encounter for long-term (current) use of other medications Encounter for immunization Need for other specified prophylactic vaccination against single bacterial disease Living will in place Advance directive discussed with patient Other specified counseling [facility] Diagnosis Hypercalcemia- Primary [facility]* Diagnosis Malignant neoplasm of upper-outer quadrant of right breast in female, estrogen receptor positive (HCC) [facility] Diagnosis Obstructive sleep apnea (adult) (pediatric)- Primary Nocturnal hypoxia Hypoxemia [facility] Diagnosis Malignant neoplasm of upper-outer quadrant of right breast in female, estrogen receptor positive (HCC)- Primary [facility] Diagnosis Malignant neoplasm of upper-outer quadrant of right breast in female, estrogen receptor positive (HCC)- Primary Chest mass Swelling, mass, or lump in chest [facility] Diagnosis Acute pain of left shoulder- Primary Pain of left clavicle Primary insomnia Persistent disorder of initiating or maintaining sleep Urge incontinence [facility] Diagnosis UTI symptoms- Primary Other symptoms involving urinary system Urge incontinence [facility] Diagnosis UTI symptoms- Primary Other symptoms involving urinary system [facility] Diagnosis Essential hypertension- Primary Unspecified essential hypertension Mixed hyperlipidemia Elevated hemoglobin A1c Other abnormal blood chemistry Urge incontinence Cerebrovascular accident (CVA) due to occlusion of cerebral artery (HCC) GERD without esophagitis Esophageal reflux Obesity, Class III, BMI 40-49.9 (morbid obesity) (HCC) Morbid obesity [facility] Diagnosis Hypercalcemia- Primary [facility] Diagnosis Essential hypertension Unspecified essential hypertension [facility] Diagnosis Malignant neoplasm of upper-outer quadrant of right breast in female, estrogen receptor positive (HCC)- Primary Encounter for screening mammogram for high-risk patient [facility] Diagnosis CLAIRE (obstructive sleep apnea) Obstructive sleep apnea (adult) (pediatric) [facility] Diagnosis Memory problem- Primary Memory loss CLAIRE (obstructive sleep apnea) Obstructive sleep apnea (adult) (pediatric) History of stroke Transient ischemic attack (TIA), and cerebral infarction without residual deficits Sleep related hypoxia Idiopathic sleep related nonobstructive alveolar hypoventilation [facility] Diagnosis CLAIRE (obstructive sleep apnea)- Primary Obstructive sleep apnea (adult) (pediatric) Sleep related hypoxia Idiopathic sleep related nonobstructive alveolar hypoventilation [facility] Diagnosis Burning with urination- Primary Dysuria [facility] Diagnosis Urgency of urination- Primary Acute UTI Urinary tract infection, site not specified [facility] Diagnosis Sleep related hypoxia- Primary Idiopathic sleep related nonobstructive alveolar hypoventilation Abnormal chest CT Nonspecific (abnormal) findings on radiological and other examination of other intrathoracic organs History of seasonal allergies Other allergy, other than to medicinal agents Class 1 obesity due to excess calories with body mass index (BMI) of 34.0 to 34.9 in adult, unspecified whether serious comorbidity present [facility]* Diagnosis Abnormal chest CT Nonspecific (abnormal) findings on radiological and other examination of other intrathoracic organs [facility] Diagnosis Abnormal chest CT Nonspecific (abnormal) findings on radiological and other examination of other intrathoracic organs [facility] Diagnosis Sleep related hypoxia- Primary Idiopathic sleep related nonobstructive alveolar hypoventilation Dyspnea and respiratory abnormalities Other dyspnea and respiratory abnormality History of seasonal allergies Other allergy, other than to medicinal agents Abnormal chest CT Nonspecific (abnormal) findings on radiological and other examination of other intrathoracic organs [facility] Diagnosis Malignant neoplasm of upper-outer quadrant of right breast in female, estrogen receptor positive (HCC) Chest mass Swelling, mass, or lump in chest [facility]* Diagnosis Malignant neoplasm of upper-outer quadrant of right breast in female, estrogen receptor positive (HCC) Bone mass Disorder of bone and cartilage, unspecified [facility] Diagnosis Malignant neoplasm of upper-outer quadrant of right breast in female, estrogen receptor positive (HCC) Encounter for screening mammogram for high-risk patient [facility]* Diagnosis 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) Cerebral thrombosis with cerebral infarction [facility] Diagnosis Abnormal mammogram of left breast [facility] Diagnosis Malignant neoplasm of upper-outer quadrant of right breast in female, estrogen receptor positive (HCC) Encounter for screening mammogram for high-risk patient [facility] Diagnosis Malignant neoplasm of upper-outer quadrant of right breast in female, estrogen receptor positive (HCC)- Primary Acute pain of left shoulder Bone mass Disorder of bone and cartilage, unspecified [facility] Diagnosis Malignant neoplasm of upper-outer quadrant of right breast in female, estrogen receptor positive (HCC) Acute pain of left shoulder Bone mass Disorder of bone and cartilage, unspecified [facility] Diagnosis Pharyngeal dysphagia- Primary Dysphagia, pharyngeal phase documented in this encounter [facility] for referral (narrative)* Diagnostic Procedure Only (Routine) - Authorized Specialty Diagnoses / Procedures [facility] To [facility] Diagnoses Malignant neoplasm of upper-outer quadrant of right breast in female, estrogen receptor positive (HCC) Encounter for screening mammogram for high-risk patient Procedures TERRY SCREENING W AGUS SCREENING DIGITAL BREAST TOMOSYNTHESIS BI SCREENING MAMMOGRAPHY BI 2-VIEW BREAST INC CAD Tammi Dodson APRN.STEREOTYPE FINISHER [address] [place] [address] [facility] [address] [place] [address] Referral ID Status Reason Start Date Expiration Date Visits Requested Visits Authorized [id number] Authorized Auto-Generat ed Referral 03/30/2022 04/29/2023 1 1 [facility] for referral (narrative)* Diagnostic Procedure Only (Routine) - Authorized Specialty Diagnoses / Procedures Referred By Joleen robbins Referred To Contact [facility] Diagnoses Abnormal mammogram of left breast Procedures US BREAST LTD LT US BREAST UNI REAL TIME WITH IMAGE LIMITED Tammi Dodson APRN.STEREOTYPE FINISHER [address] [place] [address] [facility] [address] [place] [address] Referral ID Status Reason Start Date Expiration Date Visits Requested Visits Authorized [id number] Authorized Auto-Generat ed Referral 09/02/2022 10/02/2023 1 1 [facility] for referral (narrative)* Diagnostic Procedure Only (Routine) - Closed Specialty Diagnoses / Procedures [facility] To Contact X[facility]AG[facility] Diagnoses Acute pain of right shoulder Procedures XR SHOULDER GENERAL 3V OR MORE AP/TRUE AP/OTHER RIGHT RADEX SHOULDER COMPLETE MINIMUM 2 VIEWS Keo Angulo MD [address] [place] [address] X[facility] Imaging Referral ID Status Reason Start Date Expiration Date V isits Requested Visits Authorized [id number] Closed Auto-Generate d Referral 09/08/2022 10/08/2023 1 1 [facility] for referral (narrative)* Diagnostic Procedure Only (Routine) - Authorized Specialty Diagnoses / Procedures [facility] Referred To Contact [facility] Diagnoses Malignant neoplasm of upper-outer quadrant of right breast in female, estrogen receptor positive (HCC) Encounter for screening mammogram for high-risk patient Procedures TERRY SCREENING W AGUS SCREENING DIGITAL BREAST TOMOSYNTHESIS BI SCREENING MAMMOGRAPHY BI 2-VIEW BREAST INC Tammi Plaza APRN.CNP [address] [place] [address] [facility] [address] [place] [address] Referral ID Status Reason Start Date Expiration Date Visits Requested Visits Authorized [id number] Authorized Auto-Generat ed Referral 03/30/2023 04/28/2024 1 1 [facility] for referral (narrative)* Outpatient Procedure (Routine) - Authorized Specialty Diagnoses / Procedures [facility] Diagnoses Abnormal chest CT Procedures NITRIC OXIDE, EXHALED NITRIC OXIDE GAS DETERMINATION Zoila Kaplan MD [address] [place] [address] Res[facility] [place] [address] [place] [address] Referral ID Status Reason Start Date Expiration Date Visits Requested Visits Authorized [id number] Authorized Auto-Generat ed Referral 06/26/2023 07/25/2024 1 1 * Outpatient Procedure (Routine) - Authorized Specialty Diagnoses / Procedures Referred By [facility] t Referred To [facility] Diagnoses Abnormal chest CT Procedures SPIROMETRY - BASELINE AND POST DILATOR BRNCDILAT RSPSE SPMTRY PRE&POST-BRNCDILAT Zoila Castle MD [address] [place] [address] Res[facility] [place] [address] [place] [address] Referral ID Status Reason Start Date Expiration Date Visits Requested Visits Authorized [id number] Authorized Auto-Generat ed Referral 06/26/2023 07/25/2024 1 1 [facility] for referral (narrative)* Outpatient Procedure (Routine) - Authorized Specialty Diagnoses / Procedures Referred By [facility] Referred To Contact [facility] Diagnoses Dyspnea and respiratory abnormalities Procedures ECHO ECHO TTHRC R-T 2D W/WOM-MODE COMPL SPEC&COLR D Alejandra Barclay PA-C [address] [place] [address] [facility] [place] [address] [place] [address] Referral ID Status Reason Start Date Expiration Date Visits Requested Visits Authorized [id number] Authorized Auto-Generat ed Referral 07/10/2023 07/09/2024 1 1 [facility] for referral (narrative)* Diagnostic Procedure Only (Routine) - Closed Specialty Diagnoses / Procedures Referred By Contac t Referred To Contact XR IMAGING Diagnoses Malignant neoplasm of upper-outer quadrant of right breast in female, estrogen receptor positive (HCC) Bone mass Procedures XR CLAVICLE 2V LEFT RADEX CLAVICLE COMPLETE Tammi Dodson, RODRIGO.STEREOTYPE FINISHER [address] [place] [address] [place] [address] Referral ID Status Reason Start Date Expiration Date V isits Requested Visits Authorized [id number] Closed Auto-Generate d Referral 12/26/2022 01/25/2024 1 1 [facility] for referral (narrative)* Diagnostic Procedure Only (Routine) - Closed Specialty Diagnoses / Procedures Referred By Joleen robbins Referred To Contact [facility] Diagnoses Malignant neoplasm of upper-outer quadrant of right breast in female, estrogen receptor positive (HCC) Encounter for screening mammogram for high-risk patient Procedures TERRY SCREENING W AGUS SCREENING DIGITAL BREAST TOMOSYNTHESIS BI SCREENING MAMMOGRAPHY BI 2-VIEW BREAST INC CAD Tammi Dodson APRN.STEREOTYPE FINISHER [address] [place] [address] [facility] [address] [address] Referral ID Status Reason Start Date Expiration Date V isits Requested Visits Authorized [id number] Closed Auto-Generate d Referral 09/01/2022 10/29/2022 1 1 [facility] for referral (narrative)* Diagnostic Procedure Only (Routine) - Closed Specialty Diagnoses / Procedures Referred By Joleen robbins Referred To Contact [facility] Diagnoses Abnormal mammogram of left breast Procedures US BREAST LTD LT US BREAST UNI REAL TIME WITH IMAGE LIMITED Tammi Dodson APRN.STEREOTYPE FINISHER [address] [place] [address] [facility] [address] [address] Referral ID Status Reason Start Date Expiration Date V isits Requested Visits Authorized [id number] Closed Auto-Generate d Referral 09/02/2022 10/02/2023 1 1 [facility] for referral (narrative)* Diagnostic Procedure Only (Routine) - Closed Specialty Diagnoses / Procedures Referred By Joleen robbins Referred To Contact XR IMAGING Diagnoses Malignant neoplasm of upper-outer quadrant of right breast in female, estrogen receptor positive (HCC) Bone mass Procedures XR CLAVICLE 2V LEFT RADEX CLAVICLE COMPLETE Tammi Dodson APRN.STEREOTYPE FINISHER [address] [place] [address] [place] [address] Referral ID Status Reason Start Date Expiration Date V isits Requested Visits Authorized [id number] Closed Auto-Generate d Referral 09/29/2023 10/28/2024 1 1 * Diagnostic Procedure Only (Routine) - Closed Specialty Diagnoses / Procedures Referred By Joleen t Referred To Contact XR IMAGING Diagnoses Malignant neoplasm of upper-outer quadrant of right breast in female, estrogen receptor positive (HCC) Acute pain of left shoulder Procedures XR SHOULDER LIMITED 2V AP/TRUE AP LEFT RADEX SHOULDER COMPLETE MINIMUM 2 VIEWS Tammi Dodson APRN.STEREOTYPE FINISHER [address] [place] [address] [place] [address] Referral ID Status Reason Start Date Expiration Date V isits Requested Visits Authorized [id number] Closed Auto-Generate d Referral 09/29/2023 10/28/2024 1 1 [facility] for visit Narrative* Auth/Cert Specialty Diagnoses / Procedures Referred By Joleen robbins Referred To Contact Diagnoses Level A Stroke Alert sp tPA Sharon Castellanos MD [address] [place] [address] [facility] [address] [place] [address] Referral ID Status Reason Start Date Expiration Date Visits Re quested Visits Authorized [id number] 1 1 [facility] for visit Narrative* Diagnostic Procedure Only (Routine) - Closed Specialty Diagnoses / Procedures Referred By Joleen t Referred To Contact XR IMAGING Diagnoses Malignant neoplasm of upper-outer quadrant of right breast in female, estrogen receptor positive (HCC) Bone mass Procedures XR CLAVICLE 2V LEFT RADEX CLAVICLE COMPLETE Tammi Dodson APRN.STEREOTYPE FINISHER [address] [place] [address] [place] [address] Referral ID Status Reason Start Date Expiration Date V isits Requested Visits Authorized [id number] Closed Auto-Generate d Referral 12/26/2022 01/25/2024 1 1 [facility] for visit Narrative* Diagnostic Procedure Only (Routine) - Closed Specialty Diagnoses / Procedures Referred By Joleen t Referred To Contact BR IMAGING Diagnoses Malignant neoplasm of upper-outer quadrant of right breast in female, estrogen receptor positive (HCC) Encounter for screening mammogram for high-risk patient Procedures TERRY SCREENING W AGUS SCREENING DIGITAL BREAST TOMOSYNTHESIS BI SCREENING MAMMOGRAPHY BI 2-VIEW BREAST INC CAD Tammi Dodson, FLOOR LAYER.STEREOTYPE FINISHER [address] [place] [address] [facility] [address] [place] [address] Referral ID Status Reason Start Date Expiration Date V isits Requested Visits Authorized [id number] Closed Auto-Generate d Referral 09/01/2022 10/29/2022 1 1 [facility] for visit Narrative* Diagnostic Procedure Only (Routine) - Closed Specialty Diagnoses / Procedures Referred By Joleen t Referred To Contact BR IMAGING Diagnoses Malignant neoplasm of upper-outer quadrant of right breast in female, estrogen receptor positive (HCC) Encounter for screening mammogram for high-risk patient Procedures TERRY SCREENING W AGUS SCREENING DIGITAL BREAST TOMOSYNTHESIS BI SCREENING MAMMOGRAPHY BI 2-VIEW BREAST INC CAD Tammi Dodson, FLOOR LAYER.STEREOTYPE FINISHER [address] [place] [address] [facility] [address] [place] [address] Referral ID Status Reason Start Date Expiration Date V isits Requested Visits Authorized [id number] Closed Auto-Generate d Referral 03/30/2023 04/28/2024 1 1 [facility] for visit Narrative* Diagnostic Procedure Only (Routine) - Closed Specialty Diagnoses / Procedures Referred By Joleen t Referred To Contact XR IMAGING Diagnoses Malignant neoplasm of upper-outer quadrant of right breast in female, estrogen receptor positive (HCC) Bone mass Procedures XR CLAVICLE 2V LEFT RADEX CLAVICLE COMPLETE Tammi Dodson, RODRIGO.STEREOTYPE FINISHER [address] [place] [address] [facility] [address] Referral ID Status Reason Start Date Expiration Date V isits Requested Visits Authorized [id number] Closed Auto-Generate d Referral 09/29/2023 10/28/2024 1 1 [facility] Advance Directives No Advanced Directives Records FoundDocuments on File Type Date Recorded Patient Senior Air Director Expl anation Advance Directive(s) 09/07/2021 9:23 AM Advance Directive(s) 08/20/2021 8:55 AM Documents on File Type Date Recorded Patient Senior Air Director Expl anation Advance Directive(s) 09/07/2021 9:23 AM Advance Directive(s) 08/20/2021 8:55 AM Latest Code Status on File Code Status Date Activated Date Inactivated Comments Full Code 05/21/2022 4:27 PM Documents on File Type Date Recorded Patient Senior Air Director Expl anation Advance Directive(s) 10/18/2022 9:20 AM Documents on File Type Date Recorded Patient Senior Air Director Expl anation Advance Directive(s) 10/18/2022 9:20 AM Reason for Referral Specialty Diagnoses / Procedures Referred By Joleen robbins Referred To Contact Speech Therapy Diagnoses Ischemic stroke Bradley Ruvalcaba, FLOOR LAYER-STEREOTYPE FINISHER [address] [place] [address] Referral ID Status Reason Start Date Expiration Date V isits Requested Visits Authorized [id number] New Request 05/24/2022 06/18/2023 1 1 Scheduling Instructions [facility] [address] [facility], 2nd Floor [place], [place] [id number] FAX Outpatient Rehabilitation Outpatient Care [address] [place] [address] FAX [facility] [address] [address] FAX [facility] [address] [place] [address] FAX [facility] [address] [place] [address] FAX Specialty Diagnoses / Procedures Referred By Joleen robbins Referred To Contact Occupational Therapy Diagnoses Ischemic stroke Bradley Ruvalcaba FLOOR LAYER-STEREOTYPE FINISHER [address] [place] [address] Referral ID Status Reason Start Date Expiration Date V isits Requested Visits Authorized [id number] New Request 05/24/2022 06/18/2023 1 1 Scheduling Instructions [facility] [address] [facility], 2nd [place] [address] [phone] FAX [facility]patient [facility] [address] [facility], [address] [place] [address] FAX [facility] [address] [address] FAX [facility] (Upper [facility]remity [facility] Hand Therapy) [address] [facility], [address] [facility] [address] [phone] FAX [facility] [address] [place] [address] FAX [facility]patient [facility] Outpatient Care [address] [place] [address] FAX Specialty Diagnoses / Procedures Referred By Joleen robbins Referred To Contact Physical Therapy Diagnoses Ischemic stroke Bradley Ruvalcaba APRN-STEREOTYPE FINISHER [address] [place] [address] Referral ID Status Reason Start Date Expiration Date V isits Requested Visits Authorized [id number] New Request 05/24/2022 06/18/2023 1 1 Scheduling Instructions [facility] [address] [facility], 2nd [place] [address] [phone] [facility]ax [facility] (Neck and Back Therapy) [address] [place], [place] [address] [phone] FAX [facility] [address] [place] [address] [phone] FAX [facility] [address] [facility] [address] [place] [address] [phone] FAX [facility] [address] [place] [address]. [place] [address] [phone] FAX Physical Therapy at [facility] [address], [place] [address] FAX [facility] [address] [place], [place] [address] FAX Continued on next page Outpatient Rehabilitation Outpatient Care [address] [place] [address] [phone] FAX Specialty Diagnoses / Procedures Referred By Joleen robbins Referred To Contact Diagnoses Cerebrovascular accident (CVA), unspecified mechanism Other cerebrovascular vasospasm and vasoconstriction Procedures MOBILE CARDIAC TELEMETRY Bradley Ruvalcaba, FLOOR LAYER-STEREOTYPE FINISHER [address] [place] [address] Referral ID Status Reason Start Date Expiration Date V isits Requested Visits Authorized [id number] New Request 05/24/2022 06/18/2023 1 1 Specialty Diagnoses / Procedures Referred By Joleen robbins Referred To Contact Diagnoses Cerebrovascular accident (CVA), unspecified mechanism Cerebral infarction due to unspecified occlusion or stenosis of right middle cerebral artery Procedures ECHOCARDIOGRAM TRANSESOPHAGEAL (THEA) AK ECHO TRANSESOPHAG R-T 2D W/PRB IMG ACQUISJ I&R Bradley Ruvalcaba S, FLOOR LAYER-STEREOTYPE FINISHER [address] [place] [address] Referral ID Status Reason Start Date Expiration Date V isits Requested Visits Authorized [id number] New Request 05/24/2022 06/18/2023 1 1 Specialty Diagnoses / Procedures Referred By Contac t Referred To Contact Neurology Diagnoses Ischemic stroke Rosa William S, FLOOR LAYER-STEREOTYPE FINISHER [address] [place] [address] Referral ID Status Reason Start Date Expiration Date V isits Requested Visits Authorized [id number] New Request 05/23/2022 06/17/2023 1 1 Specialty Diagnoses / Procedures Referred By Contac t Referred To Contact Procedures DVT/VTE RISK ASSESSMENT Ulises Varner, FLOOR LAYER-STEREOTYPE FINISHER [address] 1[address] [place] [address] Referral ID Status Reason Start Date Expiration Date V isits Requested Visits Authorized [id number] Pending Review 05/21/2022 06/15/2023 1 1 Specialty Diagnoses / Procedures Referred By Contac t Referred To Contact [address] [place] [address] Referral ID Status Reason Start Date Expiration Date Visits Re quested Visits Authorized Specialty Diagnoses / Procedures Referred By Contac t Referred To Contact Procedures DVT/VTE RISK ASSESSMENT Sharon Castellanos MD [address] [place] [address] Referral ID Status Reason Start Date Expiration Date V isits Requested Visits Authorized [id number] Pending Review 05/21/2022 06/15/2023 1 1 Specialty Diagnoses / Procedures Referred By Contac t Referred To Contact Neurology Diagnoses Cerebrovascular accident (CVA) due to occlusion of cerebral artery (HCC) Procedures CONSULT TO NEUROLOGY OFFICE/OUTPATIENT NEW HIGH MDM 60-74 MINUTES Massiel Soliz, FLOOR LAYER.STEREOTYPE FINISHER [address] [place] [address] Referral ID Status Reason Start Date Expiration Date Visits Requested Visits Authorized [id number] Pending Review PCP Requested Referral 06/09/2022 06/09/2023 1 1 Specialty Diagnoses / Procedures Referred By Contac t Referred To Contact Diagnoses CLAIRE (obstructive sleep apnea) Procedures CONSULT TO SLEEP MEDICINE - ADULT OFFICE/OUTPATIENT [facility] MDM 60-74 MINUTES Keo Angulo MD [address] [place] [address] Referral ID Status Reason Start Date Expiration Date Visits Requested Visits Authorized [id number] Pending Review PCP Requested Referral 07/28/2022 07/28/2023 1 1 Specialty Diagnoses / Procedures Referred By Contac t Referred To Contact MR IMAGING Diagnoses 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) Procedures MRA BRAIN WO IVCON MRA, HEAD W/O CONTRAST Huseyin Santiago Jr., MD [address] [facility] [address] [place] [address] Mr Imaging Referral ID Status Reason Start Date Expiration Date Visits Requested Visits Authorized [id number] Authorized Auto-Generat ed Referral 08/05/2022 09/04/2023 1 1 Specialty Diagnoses / Procedures Referred By Contac t Referred To Contact MR IMAGING Diagnoses 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) Procedures MRI BRAIN WO IVCON MRI BRAIN BRAIN STEM W/O CONTRAST MATERIAL Huseyin Santiago Jr., MD [address] [facility] [address] [place] [address] Mr Imaging Referral ID Status Reason Start Date Expiration Date Visits Requested Visits Authorized [id number] Authorized Auto-Generat ed Referral 08/05/2022 09/04/2023 1 1 Specialty Diagnoses / Procedures Referred By Contac t Referred To Contact CT IMAGING Diagnoses Malignant neoplasm of upper-outer quadrant of right breast in female, estrogen receptor positive (HCC) Chest mass Procedures CT CHEST W IVCON DIAGNOSTIC COMPUTED TOMOGRAPHY THORAX W/CONTRAST Tammi Dodson APRN.STEREOTYPE FINISHER [address] [place] [address] Ct Imaging Referral ID Status Reason Start Date Expiration Date V isits Requested Visits Authorized [id number] Closed Auto-Generate d Referral 12/28/2022 01/27/2024 1 1 Specialty Diagnoses / Procedures Referred By Contac t Referred To Contact [facility] Diagnoses Acute pain of left shoulder Pain of left clavicle Procedures CONSULT TO PHYSICAL THERAPY PHYSICAL THERAPY EVALUATION HIGH COMPLEX 45 MINS Regina Nguyen PA-C [address] [place] [address] [facility] [place] [address] [place] [address] Referral ID Status Reason Start Date Expiration Date Visits Requested Visits Authorized [id number] Pending Review Auto-Generat ed Referral 01/18/2023 01/18/2024 1 1 Specialty Diagnoses / Procedures Referred By Contac t Referred To Contact Urology Diagnoses Urge incontinence Procedures CONSULT TO UROLOGY OFFICE/OUTPATIENT [facility] 60-74 MINUTES Danny Guidry APRN.STEREOTYPE FINISHER [address] [place] [address] Referral ID Status Reason Start Date Expiration Date Visits Requested Visits Authorized [id number] Pending Review PCP Requested Referral 02/10/2023 02/10/2024 1 1 Specialty Diagnoses / Procedures Referred By Contac t Referred To Contact Pulmonary and Critical Care Medicine Diagnoses Sleep related hypoxia Procedures CONSULT TO PULM/CRITICAL CARE OFFICE/OUTPATIENT [facility] MDM 60-74 MINUTES Huseyin Santiago Jr., MD [address] [address] Referral ID Status Reason Start Date Expiration Date Visits Requested Visits Authorized [id number] Pending Review PCP Requested Referral 05/11/2023 05/10/2024 1 1 Specialty Diagnoses / Procedures Referred By Contac t Referred To Contact CT IMAGING Diagnoses Malignant neoplasm of upper-outer quadrant of right breast in female, estrogen receptor positive (HCC) Chest mass Procedures CT CHEST W IVCON DIAGNOSTIC COMPUTED TOMOGRAPHY THORAX W/CONTRAST Tammi Dodson APRN.STEREOTYPE FINISHER [address] [place] [address] [place] [address] Specialty Diagnoses / Procedures Referred By Contac t Referred To Contact MR IMAGING Diagnoses 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) Procedures MRA BRAIN WO IVCON MRA, HEAD W/O CONTRAST Huseyin Santiago Jr., MD [address] [facility] [address] [place] [address] [place] [address] Referral ID Status Reason Start Date Expiration Date V isits Requested Visits Authorized [id number] Closed Auto-Generate d Referral 08/05/2022 09/04/2023 1 1 Specialty Diagnoses / Procedures Referred By Contac t Referred To Contact MR IMAGING Diagnoses 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) Procedures MRI BRAIN WO IVCON MRI BRAIN BRAIN STEM W/O CONTRAST MATERIAL Huseyin Santiago Jr., MD [facility] [facility] [address] [place] [address] Mr Imaging [facility] Referral ID Status Reason Start Date Expiration Date V isits Requested Visits Authorized [id number] Closed Auto-Generate d Referral 08/05/2022 09/04/2023 1 1 Specialty Diagnoses / Procedures Referred By Contac t Referred To Contact Ent - Otolaryngology Diagnoses Pharyngeal dysphagia Procedures CONSULT TO ENT OFFICE/OUTPATIENT [facility] 60 MINUTES Candy Benson MD [address] [facility] [place] [place] [address] Referral ID Status Reason Start Date Expiration Date Visits Requested Visits Authorized [id number] Authorized PCP Requested Referral 11/03/2023 11/02/2024 1 1 Summary Purpose Family History No Family History Records FoundNo Family History Records FoundNo Family History Records FoundNo Family History Records Found Additional Source Comments Source Comments (unrecognize d section and content) In the event this informatio n is protected by the Federal Confidentiality of Alcohol and Drug Abuse Patient Records regulations: The Federal rules restrict any use of the information to criminally investigate or prosecute any alcohol or drug abuse patient.[facility] the event this information is protected by the Federal Confidentiality of Alcohol and Drug Abuse Patient Records regulations: The Federal rules restrict any use of the information to criminally investigate or prosecute any alcohol or drug abuse patient.[facility] the event this information is protected by the Federal Confidentiality of Alcohol and Drug Abuse Patient Records regulations: The Federal rules restrict any use of the information to criminally investigate or prosecute any alcohol or drug abuse patient.[facility] the event this information is protected by the Federal Confidentiality of Alcohol and Drug Abuse Patient Records regulations: The Federal rules restrict any use of the information to criminally investigate or prosecute any alcohol or drug abuse patient.[facility] DaytonIn the event this information is protected by the Federal Confidentiality of Alcohol and Drug Abuse Patient Records regulations: The Federal rules restrict any use of the information to criminally investigate or prosecute any alcohol or drug abuse patient.[facility] the event this information is protected by the Federal Confidentiality of Alcohol and Drug Abuse Patient Records regulations: The Federal rules restrict any use of the information to criminally investigate or prosecute any alcohol or drug abuse patient.[facility] DaytonIn the event this information is protected by the Federal Confidentiality of Alcohol and Drug Abuse Patient Records regulations: The Federal rules restrict any use of the information to criminally investigate or prosecute any alcohol or drug abuse patient.[facility] DaytonIn the event this information is protected by the Federal Confidentiality of Alcohol and Drug Abuse Patient Records regulations: The Federal rules restrict any use of the information to criminally investigate or prosecute any alcohol or drug abuse patient.[facility] DaytonIn the event this information is protected by the Federal Confidentiality of Alcohol and Drug Abuse Patient Records regulations: The Federal rules restrict any use of the information to criminally investigate or prosecute any alcohol or drug abuse patient.[facility]In the event this information is protected by the Federal Confidentiality of Alcohol and Drug Abuse Patient Records regulations: The Federal rules restrict any use of the information to criminally investigate or prosecute any alcohol or drug abuse patient.[facility] DaytonIn the event this information is protected by the Federal Confidentiality of Alcohol and Drug Abuse Patient Records regulations: The Federal rules restrict any use of the information to criminally investigate or prosecute any alcohol or drug abuse patient.[facility] DaytonIn the event this information is protected by the Federal Confidentiality of Alcohol and Drug Abuse Patient Records regulations: The Federal rules restrict any use of the information to criminally investigate or prosecute any alcohol or drug abuse patient.[facility] DaytonIn the event this information is protected by the Federal Confidentiality of Alcohol and Drug Abuse Patient Records regulations: The Federal rules restrict any use of the information to criminally investigate or prosecute any alcohol or drug abuse patient.[facility] DaytonIn the event this information is protected by the Federal Confidentiality of Alcohol and Drug Abuse Patient Records regulations: The Federal rules restrict any use of the information to criminally investigate or prosecute any alcohol or drug abuse patient.[facility] DaytonIn the event this information is protected by the Federal Confidentiality of Alcohol and Drug Abuse Patient Records regulations: The Federal rules restrict any use of the information to criminally investigate or prosecute any alcohol or drug abuse patient.[facility] DaytonIn the event this information is protected by the Federal Confidentiality of Alcohol and Drug Abuse Patient Records regulations: The Federal rules restrict any use of the information to criminally investigate or prosecute any alcohol or drug abuse patient.[facility] Dayton[facility] the event this information is protected by the Federal Confidentiality of Alcohol and Drug Abuse Patient Records regulations: The Federal rules restrict any use of the information to criminally investigate or prosecute any alcohol or drug abuse patient.[facility] DaytonIn the event this information is protected by the Federal Confidentiality of Alcohol and Drug Abuse Patient Records regulations: The Federal rules restrict any use of the information to criminally investigate or prosecute any alcohol or drug abuse patient.[facility] DaytonIn the event this information is protected by the Federal Confidentiality of Alcohol and Drug Abuse Patient Records regulations: The Federal rules restrict any use of the information to criminally investigate or prosecute any alcohol or drug abuse patient.[facility] DaytonIn the event this information is protected by the Federal Confidentiality of Alcohol and Drug Abuse Patient Records regulations: The Federal rules restrict any use of the information to criminally investigate or prosecute any alcohol or drug abuse patient.[facility] DaytonIn the event this information is protected by the Federal Confidentiality of Alcohol and Drug Abuse Patient Records regulations: The Federal rules restrict any use of the information to criminally investigate or prosecute any alcohol or drug abuse patient.[facility] DaytonIn the event this information is protected by the Federal Confidentiality of Alcohol and Drug Abuse Patient Records regulations: The Federal rules restrict any use of the information to criminally investigate or prosecute any alcohol or drug abuse patient.[facility] DaytonIn the event this information is protected by the Federal Confidentiality of Alcohol and Drug Abuse Patient Records regulations: The Federal rules restrict any use of the information to criminally investigate or prosecute any alcohol or drug abuse patient.[facility] DaytonIn the event this information is protected by the Federal Confidentiality of Alcohol and Drug Abuse Patient Records regulations: The Federal rules restrict any use of the information to criminally investigate or prosecute any alcohol or drug abuse patient.[facility] DaytonIn the event this information is protected by the Federal Confidentiality of Alcohol and Drug Abuse Patient Records regulations: The Federal rules restrict any use of the information to criminally investigate or prosecute any alcohol or drug abuse patient.[facility] DaytonIn the event this information is protected by the Federal Confidentiality of Alcohol and Drug Abuse Patient Records regulations: The Federal rules restrict any use of the information to criminally investigate or prosecute any alcohol or drug abuse patient.[facility] DaytonIn the event this information is protected by the Federal Confidentiality of Alcohol and Drug Abuse Patient Records regulations: The Federal rules restrict any use of the information to criminally investigate or prosecute any alcohol or drug abuse patient.[facility] DaytonIn the event this information is protected by the Federal Confidentiality of Alcohol and Drug Abuse Patient Records regulations: The Federal rules restrict any use of the information to criminally investigate or prosecute any alcohol or drug abuse patient.[facility] DaytonIn the event this information is protected by the Federal Confidentiality of Alcohol and Drug Abuse Patient Records regulations: The Federal rules restrict any use of the information to criminally investigate or prosecute any alcohol or drug abuse patient.[facility]In the event this information is protected by the Federal Confidentiality of Alcohol and Drug Abuse Patient Records regulations: The Federal rules restrict any use of the information to criminally investigate or prosecute any alcohol or drug abuse patient.[facility] DaytonIn the event this information is protected by the Federal Confidentiality of Alcohol and Drug Abuse Patient Records regulations: The Federal rules restrict any use of the information to criminally investigate or prosecute any alcohol or drug abuse patient.[facility] DaytonIn the event this information is protected by the Federal Confidentiality of Alcohol and Drug Abuse Patient Records regulations: The Federal rules restrict any use of the information to criminally investigate or prosecute any alcohol or drug abuse patient.[facility] DaytonIn the event this information is protected by the Federal Confidentiality of Alcohol and Drug Abuse Patient Records regulations: The Federal rules restrict any use of the information to criminally investigate or prosecute any alcohol or drug abuse patient.[facility] DaytonIn the event this information is protected by the Federal Confidentiality of Alcohol and Drug Abuse Patient Records regulations: The Federal rules restrict any use of the information to criminally investigate or prosecute any alcohol or drug abuse patient.[facility] DaytonIn the event this information is protected by the Federal Confidentiality of Alcohol and Drug Abuse Patient Records regulations: The Federal rules restrict any use of the information to criminally investigate or prosecute any alcohol or drug abuse patient.[facility] DaytonIn the event this information is protected by the Federal Confidentiality of Alcohol and Drug Abuse Patient Records regulations: The Federal rules restrict any use of the information to criminally investigate or prosecute any alcohol or drug abuse patient.[facility] DaytonIn the event this information is protected by the Federal Confidentiality of Alcohol and Drug Abuse Patient Records regulations: The Federal rules restrict any use of the information to criminally investigate or prosecute any alcohol or drug abuse patient.[facility] DaytonIn the event this information is protected by the Federal Confidentiality of Alcohol and Drug Abuse Patient Records regulations: The Federal rules restrict any use of the information to criminally investigate or prosecute any alcohol or drug abuse patient.[facility] DaytonIn the event this information is protected by the Federal Confidentiality of Alcohol and Drug Abuse Patient Records regulations: The Federal rules restrict any use of the information to criminally investigate or prosecute any alcohol or drug abuse patient.[facility] DaytonIn the event this information is protected by the Federal Confidentiality of Alcohol and Drug Abuse Patient Records regulations: The Federal rules restrict any use of the information to criminally investigate or prosecute any alcohol or drug abuse patient.[facility] DaytonIn the event this information is protected by the Federal Confidentiality of Alcohol and Drug Abuse Patient Records regulations: The Federal rules restrict any use of the information to criminally investigate or prosecute any alcohol or drug abuse patient.[facility] DaytonIn the event this information is protected by the Federal Confidentiality of Alcohol and Drug Abuse Patient Records regulations: The Federal rules restrict any use of the information to criminally investigate or prosecute any alcohol or drug abuse patient.[facility] DaytonIn the event this information is protected by the Federal Confidentiality of Alcohol and Drug Abuse Patient Records regulations: The Federal rules restrict any use of the information to criminally investigate or prosecute any alcohol or drug abuse patient.[facility] DaytonIn the event this information is protected by the Federal Confidentiality of Alcohol and Drug Abuse Patient Records regulations: The Federal rules restrict any use of the information to criminally investigate or prosecute any alcohol or drug abuse patient.[facility] DaytonIn the event this information is protected by the Federal Confidentiality of Alcohol and Drug Abuse Patient Records regulations: The Federal rules restrict any use of the information to criminally investigate or prosecute any alcohol or drug abuse patient.[facility] DaytonIn the event this information is protected by the Federal Confidentiality of Alcohol and Drug Abuse Patient Records regulations: The Federal rules restrict any use of the information to criminally investigate or prosecute any alcohol or drug abuse patient.[facility] DaytonIn the event this information is protected by the Federal Confidentiality of Alcohol and Drug Abuse Patient Records regulations: The Federal rules restrict any use of the information to criminally investigate or prosecute any alcohol or drug abuse patient.[facility] DaytonIn the event this information is protected by the Federal Confidentiality of Alcohol and Drug Abuse Patient Records regulations: The Federal rules restrict any use of the information to criminally investigate or prosecute any alcohol or drug abuse patient.[facility] DaytonIn the event this information is protected by the Federal Confidentiality of Alcohol and Drug Abuse Patient Records regulations: The Federal rules restrict any use of the information to criminally investigate or prosecute any alcohol or drug abuse patient.[facility] DaytonIn the event this information is protected by the Federal Confidentiality of Alcohol and Drug Abuse Patient Records regulations: The Federal rules restrict any use of the information to criminally investigate or prosecute any alcohol or drug abuse patient.[facility] DaytonIn the event this information is protected by the Federal Confidentiality of Alcohol and Drug Abuse Patient Records regulations: The Federal rules restrict any use of the information to criminally investigate or prosecute any alcohol or drug abuse patient.[facility] DaytonIn the event this information is protected by the Federal Confidentiality of Alcohol and Drug Abuse Patient Records regulations: The Federal rules restrict any use of the information to criminally investigate or prosecute any alcohol or drug abuse patient.[facility] DaytonIn the event this information is protected by the Federal Confidentiality of Alcohol and Drug Abuse Patient Records regulations: The Federal rules restrict any use of the information to criminally investigate or prosecute any alcohol or drug abuse patient.[facility] DaytonIn the event this information is protected by the Federal Confidentiality of Alcohol and Drug Abuse Patient Records regulations: The Federal rules restrict any use of the information to criminally investigate or prosecute any alcohol or drug abuse patient.[facility] DaytonIn the event this information is protected by the Federal Confidentiality of Alcohol and Drug Abuse Patient Records regulations: The Federal rules restrict any use of the information to criminally investigate or prosecute any alcohol or drug abuse patient.[facility] DaytonIn the event this information is protected by the Federal Confidentiality of Alcohol and Drug Abuse Patient Records regulations: The Federal rules restrict any use of the information to criminally investigate or prosecute any alcohol or drug abuse patient.[facility] DaytonIn the event this information is protected by the Federal Confidentiality of Alcohol and Drug Abuse Patient Records regulations: The Federal rules restrict any use of the information to criminally investigate or prosecute any alcohol or drug abuse patient.[facility] DaytonIn the event this information is protected by the Federal Confidentiality of Alcohol and Drug Abuse Patient Records regulations: The Federal rules restrict any use of the information to criminally investigate or prosecute any alcohol or drug abuse patient.[facility] DaytonIn the event this information is protected by the Federal Confidentiality of Alcohol and Drug Abuse Patient Records regulations: The Federal rules restrict any use of the information to criminally investigate or prosecute any alcohol or drug abuse patient.[facility] DaytonIn the event this information is protected by the Federal Confidentiality of Alcohol and Drug Abuse Patient Records regulations: The Federal rules restrict any use of the information to criminally investigate or prosecute any alcohol or drug abuse patient.[facility] Reason for Visit (unrecogniz ed section and content) Reason Comments Results Reason Comments Medication Problem Reason Comments Established Patient Reason Comments Hospital Follow Up Specialty Diagnoses / Procedures Referred By Contac t Referred To Contact Family Practice / FAMILY MEDICINE Diagnoses Hospital Follow-up [facility] for CVA Procedures 4C EST HOSP/ER FU MD Patrick Boyd Rayanne, PA-C [address] [place] [address] Referral ID Status Reason Start Date Expiration Date Visits Re quested Visits Authorized [id number] Closed 06/01/2022 08/30/2022 1 1 Reason Comments Acute Visit CVA concerns Specialty Diagnoses / Procedures Referred By Contac t Referred To Contact Family Practice / FAMILY MEDICINE Diagnoses 2 weeks Follow up Procedures 4C MD Martínez Rosario Ashley, APRN.STEREOTYPE FINISHER [address] [place] [address] Referral ID Status Reason Start Date Expiration Date Visits Re quested Visits Authorized [id number] Closed 06/09/2022 09/07/2022 1 1 Reason Comments Patient Update Reason Comments Results Sleep study Reason Comments Orders Reason Comments New Patient CVA 05/21/2022 Specialty Diagnoses / Procedures Referred By Contac t Referred To Contact Neurology Diagnoses Cerebrovascular accident (CVA) due to occlusion of cerebral artery (HCC) Procedures CONSULT TO NEUROLOGY OFFICE/OUTPATIENT [facility] 60-74 MINUTES Massiel Soliz APRN.CNP [address] [place] [address] Referral ID Status Reason Start Date Expiration Date Visits Requested Visits Authorized [id number] Pending Review PCP Requested Referral 06/09/2022 06/09/2023 1 1 Reason Comments office notes Reason Comments Results Reason Comments Medicare Wellness Exam Specialty Diagnoses / Procedures Referred By Contac t Referred To Contact Family Medicine / FAMILY MEDICINE Diagnoses 6 month f/u Procedures 4C EST WELL Regina Nguyen PA-C [address] [place] [address] Keo Angulo MD [address] [place] [address] Referral ID Status Reason Start Date Expiration Date Visits Re quested Visits Authorized [id number] Closed 09/08/2022 10/29/2022 1 1 Reason Comments pap titration Reason Comments Refill Request Reason Comments Orders Reason Comments Results MRI results Reason Comments Established Patient Reason Comments Patient Update Pap care Reason Comments Appointment Reason Comments Patient Question Reason Comments Results X-ray Patient Update Reason Comments Recheck CT results Reason Comments UTI Reason Comments 6 Month Exam Reason Onset Date Comments Refill Request 03/14/2023 Reason Comments Follow Up Reason Comments Urinary Problem Frequency x 1 day, w ith incontinence, wear pessary Reason Comments Urinary Problem Urgency and pain x 1 day Reason Comments New Patient Nocturnal hypoxia Specialty Diagnoses / Procedures Referred By Contac t Referred To Contact Pulmonary and Critical Care Medicine Diagnoses Sleep related hypoxia Procedures CONSULT TO PULM/CRITICAL CARE OFFICE/OUTPATIENT [facility] 60-74 MINUTES Huseyin Santiago Jr., MD [address] [address] Referral ID Status Reason Start Date Expiration Date Visits Requested Visits Authorized [id number] Pending Review PCP Requested Referral 05/11/2023 05/10/2024 1 1 Reason Comments Spirometry Specialty Diagnoses / Procedures Referred By Contac t Referred [facility] Diagnoses Abnormal chest CT Procedures SPIROMETRY - BASELINE AND POST DILATOR BRNCDILAT RSPSE SPMTRY PRE&POST-BRNCDILAT ADMN Zoila Kaplan MD [address] [place] [address] Respiratory [place] [address] [place] [address] Referral ID Status Reason Start Date Expiration Date V isits Requested Visits Authorized [id number] Closed Auto-Generate d Referral 06/26/2023 07/25/2024 1 1 Specialty Diagnoses / Procedures Referred By Contac t Referred To Contact [facility] Diagnoses Abnormal chest CT Procedures NITRIC OXIDE, EXHALED NITRIC OXIDE GAS DETERMINATION Zoila Kaplan MD [address] [place] [address] Respiratory [place] [address] [place] [id number] Referral ID Status Reason Start Date Expiration Date V isits Requested Visits Authorized [id number] Closed Auto-Generate d Referral 06/26/2023 07/25/2024 1 1 Reason Comments Recheck Follow up and review testing. Reason Comments Radiology CT Specialty Diagnoses / Procedures Referred By Contac t Referred To Contact CT IMAGING Diagnoses Malignant neoplasm of upper-outer quadrant of right breast in female, estrogen receptor positive (HCC) Chest mass Procedures CT CHEST W IVCON DIAGNOSTIC COMPUTED TOMOGRAPHY THORAX W/CONTRAST Tammi Dodson APRN.STEREOTYPE FINISHER [address] [place] [address] Ct Imaging [facility] Referral ID Status Reason Start Date Expiration Date V isits Requested Visits Authorized [id number] Closed Auto-Generate d Referral 12/28/2022 01/27/2024 1 1 Specialty Diagnoses / Procedures Referred By Contac t Referred To Contact MR IMAGING Diagnoses 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) Procedures MRI BRAIN WO IVCON MRI BRAIN BRAIN STEM W/O CONTRAST MATERIAL Huseyin Santiago Jr., MD [address] [facility] [address] [place] [address] Mr Imaging [facility]95 Referral ID Status Reason Start Date Expiration Date V isits Requested Visits Authorized [id number] Closed Auto-Generate d Referral 08/05/2022 09/04/2023 1 1 Reason Comments Radiology US Specialty Diagnoses / Procedures Referred By Joleen robbins Referred To Contact BR IMAGING Diagnoses Abnormal mammogram of left breast Procedures US BREAST LTD LT US BREAST UNI REAL TIME WITH IMAGE LIMITED Tammi Dodson APRN.STEREOTYPE FINISHER [address] [place] [address] Br Imaging [address] [place] [address] Referral ID Status Reason Start Date Expiration Date V isits Requested Visits Authorized [id number] Closed Auto-Generate d Referral 09/02/2022 10/02/2023 1 1 Reason Comments Established Patient Reason Comments Consult Difficulty swallowin g, no prior EGD Care Teams (unrecognized sec tion and content) Log Brander Relationship Specialty Start Date End Date Keo Angulo MD [address] [place], [place] [id number] PCP - General Family Practice 07/05/17 Josh Monson MD, MD [address] [place], [place] [id number] [phone] Physician Radiation Oncology 09/18/20 Akosua Browne RN Specialty Coding Clerk Oncology 10/20/20 Log Brander Relationship Specialty Start Date End Date Keo Angulo MD [address] [place], [place] [id number] [phone] PCP - General Family Practice 07/05/17 Josh Monson MD, [address] [place], [place] [id number] [phone] Physician Radiation Oncology 09/18/20 Akosua Browne RN Specialty Coding Clerk Oncology 10/20/20 Log Brander Relationship Specialty Start Date End Date Keo Angulo MD [address] [place], [place] [id number] PCP - General Family Practice 07/05/17 [facility] Monson MD, [address] [facility] [place] [address] Physician Radiation Oncology 09/18/20 Akosua Browne RN Specialty Coding Clerk Oncology 10/20/20 Log Brander Relationship Specialty Start Date End Date Keo Angulo MD [address] [facility] [place] [address] PCP - General Family Medicine 05/23/22 Uziel Spencer DO [address] [facility] [place] [address] Hematology 05/23/22 Log Brander Relationship Specialty Start Date End Date Keo Angulo MD [address] [facility] [place] [address] PCP - General Family Practice 07/05/17 Josh Monson MD, [address] [facility] [place] [address] Physician Radiation Oncology 09/18/20 Akosua Browne RN Specialty Coding Clerk Oncology 10/20/20 Log Brander Relationship Specialty Start Date End Date Keo Angulo MD [address] [facility] [place] [address] PCP - General Family Practice 07/05/17 Josh Monson MD, [address] [facility] [place] [address] Physician Radiation Oncology 09/18/20 Akosua Browne RN Specialty Coding Clerk Oncology 10/20/20 Log Brander Relationship Specialty Start Date End Date Keo Angulo MD [address] [facility] [place] [address] PCP - General Family Practice 07/05/17 Josh Monson MD, [address] [facility] [place] [address] Physician Radiation Oncology 09/18/20 Akosua Browne RN Specialty Coding Clerk Oncology 10/20/20 Log Brander Relationship Specialty Start Date End Date Keo Angulo MD [address] [place] [address] PCP - General Family Medicine 07/05/17 Josh Monson MD, [address] [place] [address] Physician Radiation Oncology 09/18/20 Akosua Browne RN Specialty Coding Clerk Oncology 10/20/20 Log Brander Relationship Specialty Start Date End Date Keo Angulo MD [address] [place] [address] PCP - General Family Medicine 07/05/17 Josh Monson MD, [address] [place] [address] Physician Radiation Oncology 09/18/20 Akosua Browne RN Specialty Coding Clerk Oncology 10/20/20 Log Brander Relationship Specialty Start Date End Date Keo Angulo MD [address] [place] [address] PCP - General Family Medicine 07/05/17 Josh Monson MD, [address] [place] [address] Physician Radiation Oncology 09/18/20 Akosua Browne RN Specialty Coding Clerk Oncology 10/20/20 Log Brander Relationship Specialty Start Date End Date Keo Angulo MD [address] [place] [address] PCP - General Family Medicine 07/05/17 Josh Monson MD, [address] [facility] [place] [address] Physician Radiation Oncology 09/18/20 Akosua Browne RN Specialty Coding Clerk Oncology 10/20/20 Log Brander Relationship Specialty Start Date End Date Keo Angulo MD [address] [place] [address] PCP - General Family Medicine 07/05/17 Josh Monson MD, [address] [place] [address] Physician Radiation Oncology 09/18/20 Akosua Browne RN Specialty Coding Clerk Oncology 10/20/20 Log Brander Relationship Specialty Start Date End Date Keo Angulo MD [address] [place] [address] PCP - General Family Medicine 07/05/17 Josh Monson MD, [address] [place] [address] Physician Radiation Oncology 09/18/20 Akosua Browne RN Specialty Coding Clerk Oncology 10/20/20 Log Brander Relationship Specialty Start Date End Date Keo Angulo MD [address] [place] [address] PCP - General Family Medicine 07/05/17 Josh Monson MD, [address] [place] [address] Physician Radiation Oncology 09/18/20 Akosua Browne RN Specialty Coding Clerk Oncology 10/20/20 Log Brander Relationship Specialty Start Date End Date Keo Angulo MD [address] [place] [address] PCP - General Family Medicine 07/05/17 Josh Monson MD, [address] [place] [address] Physician Radiation Oncology 09/18/20 Akosua Browne RN Specialty Coding Clerk Oncology 10/20/20 Log Brander Relationship Specialty Start Date End Date Keo Angulo MD [address] [place] [address] PCP - General Family Medicine 07/05/17 Josh Monson MD, [address] [place] [address] Physician Radiation Oncology 09/18/20 Akosua Browne RN Specialty Coding Clerk Oncology 10/20/20 Log Brander Relationship Specialty Start Date End Date Keo Angulo MD [address] [place] [address] PCP - General Family Medicine 07/05/17 Josh Monson MD, [address] [place] [address] Physician Radiation Oncology 09/18/20 Akosua Browne RN Specialty Coding Clerk Oncology 10/20/20 Log Brander Relationship Specialty Start Date End Date Keo Angulo MD [address] [place] [address] PCP - General Family Medicine 07/05/17 Josh Monson MD, [address] [place] [address] Physician Radiation Oncology 09/18/20 Akosua Browne RN Specialty Coding Clerk Oncology 10/20/20 Log Brander Relationship Specialty Start Date End Date Keo Angulo MD [address] [place] [address] PCP - General Family Medicine 07/05/17 Josh Monson MD, [address] [facility] [place] [address] Physician Radiation Oncology 09/18/20 Akosua Browne RN Specialty Coding Clerk Oncology 10/20/20 Log Brander Relationship Specialty Start Date End Date Keo Angulo MD [address] [facility] [place] [address] PCP - General Family Medicine 07/05/17 Josh Monson MD, [address] [place] [address] Physician Radiation Oncology 09/18/20 Akosua Browne RN Specialty Coding Clerk Oncology 10/20/20 Log Brander Relationship Specialty Start Date End Date Keo Angulo MD [address] [place] [address] PCP - General Family Medicine 07/05/17 Josh Monson MD, [address] [place] [address] Physician Radiation Oncology 09/18/20 Akosua Browne RN Specialty Coding Clerk Oncology 10/20/20 Log Brander Relationship Specialty Start Date End Date Keo Angulo MD [address] [place] [address] PCP - General Family Medicine 07/05/17 Josh Monson MD, [address] [place] [address] Physician Radiation Oncology 09/18/20 Akosua Browne RN Specialty Coding Clerk Oncology 10/20/20 Log Brander Relationship Specialty Start Date End Date Keo Angulo MD [address] [place] [address] PCP - General Family Medicine 07/05/17 Josh Monson MD, [address] [place] [address] Physician Radiation Oncology 09/18/20 Akosua Browne RN Specialty Coding Clerk Oncology 10/20/20 Log Brander Relationship Specialty Start Date End Date Keo Angulo MD [address] [facility] [place] [address] PCP - General Family Medicine 07/05/17 Josh Monson MD, [address] [place] [address] Physician Radiation Oncology 09/18/20 Akosua Browne RN Specialty Coding Clerk Oncology 10/20/20 Log Brander Relationship Specialty Start Date End Date Keo Angulo MD [address] [facility] [place] [address] PCP - General Family Medicine 07/05/17 Josh Monson MD, [address] [place] [address] Physician Radiation Oncology 09/18/20 Akosua Browne RN Specialty Coding Clerk Oncology 10/20/20 Log Brander Relationship Specialty Start Date End Date Keo Angulo MD [address] [place] [address] PCP - General Family Medicine 07/05/17 Josh Monson MD, [address] [place] [address] Physician Radiation Oncology 09/18/20 Akosua Browne RN Specialty Coding Clerk Oncology 10/20/20 Log Brander Relationship Specialty Start Date End Date Keo Angulo MD [address] [place] [address] PCP - General Family Medicine 07/05/17 Josh Monson MD, [address] [place] [address] Physician Radiation Oncology 09/18/20 Akosua Browne RN Specialty Coding Clerk Oncology 10/20/20 Log Brander Relationship Specialty Start Date End Date Keo Angulo MD [address] [facility] [place] [address] PCP - General Family Medicine 07/05/17 Josh Monson MD, MD [address] [place] [address] Physician Radiation Oncology 09/18/20 Akosua Browne RN Specialty Coding Clerk Oncology 10/20/20 Log Brander Relationship Specialty Start Date End Date Keo Angulo MD [address] [facility] [place] [address] PCP - General Family Medicine 07/05/17 Josh Monson MD, MD [address] [facility] [place] [address] Physician Radiation Oncology 09/18/20 Akosua Browne RN Specialty Coding Clerk Oncology 10/20/20 Log Brander Relationship Specialty Start Date End Date Keo Angulo MD [address] [facility] [place] [address] PCP - General Family Medicine 07/05/17 Josh Monson MD, [address] [place] [address] Physician Radiation Oncology 09/18/20 Akosua Browne RN Specialty Coding Clerk Oncology 10/20/20 Log Brander Relationship Specialty Start Date End Date Keo Angulo MD [address] [facility] [place] [address] PCP - General Family Medicine 07/05/17 Josh Monson MD, [address] [facility] [place] [address] Physician Radiation Oncology 09/18/20 Akosua Browne RN Specialty Coding Clerk Oncology 10/20/20 Log Brander Relationship Specialty Start Date End Date Keo Angulo MD [address] [facility] [place] [address] PCP - General Family Medicine 07/05/17 Josh Monson MD, [address] [facility] [place] [address] Physician Radiation Oncology 09/18/20 Akosua Browne RN Specialty Coding Clerk Oncology 10/20/20 Log Brander Relationship Specialty Start Date End Date Keo Angulo MD [address] [facility] [place] [address] PCP - General Family Medicine 07/05/17 Josh Monson MD, [address] [facility] [place] [address] Physician Radiation Oncology 09/18/20 Akosua Browne RN Specialty Coding Clerk Oncology 10/20/20 Log Brander Relationship Specialty Start Date End Date Keo Angulo MD [address] [facility] [place] [address] PCP - General Family Medicine 07/05/17 Josh Monson MD, [address] [facility] [place] [address] Physician Radiation Oncology 09/18/20 Akosua Browne RN Specialty Coding Clerk Oncology 10/20/20 Log Brander Relationship Specialty Start Date End Date Keo Angulo MD [address] [facility] [place] [address] PCP - General Family Medicine 07/05/17 Josh Monson MD, MD [address] [place] [address] Physician Radiation Oncology 09/18/20 Akosua Browne RN Specialty Coding Clerk Oncology 10/20/20 Log Brander Relationship Specialty Start Date End Date Keo Angulo MD [address] [facility] [place] [address] PCP - General Family Medicine 07/05/17 Josh Monson MD, [address] [facility] [place] [address] Physician Radiation Oncology 09/18/20 Akosua Browne RN Specialty Coding Clerk Oncology 10/20/20 Log Brander Relationship Specialty Start Date End Date Keo Angulo MD [address] [facility] [place] [address] PCP - General Family Medicine 07/05/17 Josh Monson MD, [address] [place] [address] Physician Radiation Oncology 09/18/20 Akosua Browne RN Specialty Coding Clerk Oncology 10/20/20 Log Brander Relationship Specialty Start Date End Date Keo Angulo MD [address] [facility] [place] [address] PCP - General Family Medicine 07/05/17 Josh Monson MD, MD [address] [facility] [place] [address] Physician Radiation Oncology 09/18/20 Akosua Browne RN Specialty Coding Clerk Oncology 10/20/20 Log Brander Relationship Specialty Start Date End Date Keo Angulo MD [address] [facility] [place] [address] PCP - General Family Medicine 07/05/17 Josh Monson MD, [address] [place] [address] Physician Radiation Oncology 09/18/20 Akosua Browne RN Specialty Coding Clerk Oncology 10/20/20 Log Brander Relationship Specialty Start Date End Date Keo Angulo MD [address] [facility] [place] [address] PCP - General Family Medicine 07/05/17 Josh Monson MD, [address] [facility] [place] [address] Physician Radiation Oncology 09/18/20 Akosua Browne RN Specialty Coding Clerk Oncology 10/20/20 Log Brander Relationship Specialty Start Date End Date Keo Angulo MD [address] [place] [address] PCP - General Family Medicine 07/05/17 Josh Monson MD, [address] [place] [address] Physician Radiation Oncology 09/18/20 Akosua Browne RN Specialty Coding Clerk Oncology 10/20/20 Log Brander Relationship Specialty Start Date End Date Keo Angulo MD [address] [facility] [place] [address] PCP - General Family Medicine 07/05/17 Josh Monson MD, [address] [place], [place] [address] Physician Radiation Oncology 09/18/20 Akosua Browne RN Specialty Coding Clerk Oncology 10/20/20 Log Brander Relationship Specialty Start Date End Date Keo Angulo MD [address] [place], [place] [id number] PCP - General Family Medicine 07/05/17 Josh Monson MD, [address] [place] [address] Physician Radiation Oncology 09/18/20 Akosua Browne RN Specialty Coding Clerk Oncology 10/20/20 Scheduled Active and Recently Administ ered Medications (unrecognized section and content) Continuous Medication Order 05/22/2022 05/23/2022 05/24/2022 sodium chloride 0.9% IV solution (CANCELED) Intravenous, at 75 mL/hr, CONTINUOUS, Starting on 05/21/22 at 2115, Until 05/22/22 at 1612 0008 (Paused - Provider: Akosua Lee RN)0010 (Restarted - Provider: Akosua Lee RN)0143 (Paused - Provider: Akosua Lee RN)0143 (Restarted - Provider: Akosua Lee RN)0200 (Rate/Dose Verify - Provider: Akosua Lee RN)0316 (Rate/Dose Verify - Provider: Akosua Lee RN)0412 (Rate/Dose Verify - Provider: Akosua Lee RN)0640 (Rate/Dose Verify - Provider: Akosua Lee RN)0808 (Paused - Provider: Kameron Viveros, RN)0825 (Restarted - Provider: Kameron Viveros, RN)0918 (Rate/Dose Verify - Provider: Kameron Viveros, RN)0945 (Paused - Provider: Kameron Viveros, RN)0948 (Restarted - Provider: Kameron Viveros, RN)1000 (Rate/Dose Verify - Provider: Kameron Viveros RN)1021 (Paused - Provider: Kameron Viveros, RN)1122 (Restarted - Provider: Kameron Viveros RN)1156 (Restarted - Provider: Kameron Viveros RN)1200 (Rate/Dose Verify - Provider: Kameron Viveros RN)1310 (Rate/Dose Verify - Provider: Kameron Viveros RN)1322 (Rate/Dose Verify - Provider: Kameron Viveros RN)1325 (Rate/Dose Verify - Provider: Kameron Viveros RN)1400 (Rate/Dose Verify - Provider: Kameron Viveros RN)1547 (Stopped - Provider: Kameron Viveros RN) PRN Medication Order 05/22/2022 05/23/2022 05/24/2022 acetaminophen (TYLENOL) tablet 650 mg 650 mg, Oral, EVERY 4 HOURS NEEDED, Starting on 05/21/22 at 2107, Until Mon05/24/22 at 1733, Mild Pain, Other, Oral temp > 99.5 F, Maximum dose of acetaminophen is 4000 mg from all sources in 24 hours. 1647 (Given - Provider: Kameron Viveros RN)2153 (Given - Provider: Viola Florentino RN) benzocaine-menthol (CEPACOL) 15-3.6 MG per lozenge 1 lozenge 1 lozenge, Oral, NEEDED, Starting on 05/22/22 at 2249, Until Mon05/24/22 at 1733, Sore Throat, Max 8 lozenges/day Patient may self-administer. 2349 (Given - Provider: Viola Florentino RN) 2036 (Given - Provider: Harmony Sheridan RN) Calcium Gluconate 10 % injection 2 g (CANCELED) 2 g, Intravenous, ADMINISTER DIRECTED, Starting on 05/21/22 at 2105, Until Mon05/23/22 at 1359, See admin instructions, ICU Calcium Gluconate Replacement Parameters, Administer if ionized calcium is between 4.1-4.4 mg/dl. EXCLUDE less than 45 kg, SCr greater than or equal to 2 mg/dL, CrCl less than 30 ml/min, ESRD, and renal replacement therapy, Serum total Ca x serum Phos greater than 70 mg/dL. Extravasation Risk 0137 (Given - Provider: Akosua Lee RN) hydrALAZINE (APRESOLINE) injection 10 mg(Linked Group 2) 10 mg, Intravenous, EVERY 1 HOUR NEEDED, Starting on 05/21/22 at 2105, Until Mon05/24/22 at 1733, See administration instructions, Use as initial dose for Systolic Blood Pressure GREATER than 160 mmHg and Heart rate LESS than 60 beats per minute. Higher dose may be administered if lower dose was previously documented as ineffective 10 minutes after administration and did not result in adverse effects (HR>90) hydrALAZINE (APRESOLINE) injection 20 mg(Linked Group 2) 20 mg, Intravenous, EVERY 1 HOUR NEEDED, Starting on 05/21/22 at 2105, Until Mon05/24/22 at 1733, See administration instructions, Higher dose may be administered for Systolic Blood Pressure GREATER than 160 mmHg and Heart rate LESS than 60 beats per minute if lower dose was previously documented as ineffective 10 minutes after administration and did not result in adverse effects (HR>90). Decrease back to lower dose if patient has adverse effects, or no PRN used in previous 3 hours labetalol (NORMODYNE) injection 10 mg(Linked Group 3) 10 mg, Intravenous, EVERY 1 HOUR NEEDED, Starting on 05/21/22 at 2105, Until Mon05/24/22 at 1733, SBP > 160 mmHg with HR >60 bpm, See admininstration instructions, Use as initial dose for Systolic Blood Pressure GREATER than 160 mmHg and Heart Rate GREATER than 60 beats per minute. Higher dose may be administered if lower dose was previously documented as ineffective 10 minutes after administration and did not result in adverse effects (HR<60) For vials: labetalol should be treated as a SINGLE USE VIAL. Discard remaining contents after one use. 0136 (Given - Provider: Viola Florentino RN - Comment: sbp 170)0406 (Given - Provider: Viola Florentino RN - Comment: sbp 169) labetalol (NORMODYNE) injection 20 mg(Linked Group 3) 20 mg, Intravenous, EVERY 1 HOUR NEEDED, Starting on 05/21/22 at 2105, Until Mon05/24/22 at 1733, See administration instructions, For Systolic Blood Pressure GREATER than 160 mmHg and if Heart Rate GREATER than 60 beats per minute. Higher dose may be administered if lower dose was previously documented as ineffective 10 minutes after administration and did not result in adverse effects (HR<60). Decrease back to lower dose if patient has adverse effects, or no PRN used in previous 3 hours For vials: labetalol should be treated as a SINGLE USE VIAL. Discard remaining contents after one use. 0136 (See Alternative - Provider: Viola Florentino RN)0406 (See Alternative - Provider: Viola Florentino RN) Magnesium Sulfate 4 g in sterile water 50 ml premix IVPB (CANCELED) 4 g, Intravenous, Administer over 4 Hours, ADMINISTER DIRECTED, Starting on 05/21/22 at 2105, Until 05/23/22 at 1359, Other, ICU Magnesium Replacement Parameters, Administer 4 grams once if magnesium level is less than or equal to 2.0 mg/dL. If replacing potassium also, replete magnesium prior to KCl administration. EXCLUDE less than 45 kg, SCr greater than or equal to 2 mg/dL, CrCl less than 30 ml/min, ESRD, and renal replacement therapy 0144 ($$New Bag$$ - Provider: Akosua Lee RN)0200 (Rate/Dose Verify - Provider: Akosua Lee RN)0316 (Rate/Dose Verify - Provider: Akosua Lee RN)0412 (Rate/Dose Verify - Provider: Akosua Lee RN)0528 (Stopped - Provider: Akosua Lee RN) ondansetron 4mg/2ml (ZOFRAN) injection 4 mg 4 mg, Intravenous, EVERY 4 HOURS NEEDED, Starting on 05/21/22 at 2107, Until 05/24/22 at 1733, Nausea / Vomiting polyethylene glycol (MIRALAX) packet 17 g 17 g, Oral, DAILY NEEDED, Starting on 05/21/22 at 2108, Until 05/24/22 at 1733, Constipation If No Bowel Movement in 48 Hours, after bisacodyl sodium chloride 0.9% IV solution 250 mL Intravenous, at 20 mL/hr, NEEDED, Starting on 05/21/22 at 2105, Until 05/24/22 at 1733, Carrier Fluid - See Admin. Inst, 250mL 0.9NS to be used as carrier fluid for intermittent small volume or piggyback medication administration as needed. Infusion rate of the carrier fluid should be set at 20 mL/hr unless the rate as the intermittent medication is less than 20 mL/hr. For intermittent medications with a rate less than 20 mL/hr set the carrier fluid at that rate of the intermittent or piggy back medication. Linked Groups Order Group 1: Enoxaparin Sodium (LOVENOX) injection 40 mgJump to med 40 mg, Subcutaneous, DAILY, First dose (after last modification) on Mon05/24/22 at 0900, Until Discontinued

Indications: DVT/PE prophylaxis And PLATELET COUNT (CANCELED) Routine, EVERY 3 DAYS AM LAB, First occurrence on Krista 05/26/22 at 0500, Until Specified, New collection Group 2: hydrALAZINE (APRESOLINE) injection 10 mgJump to med 10 mg, Intravenous, EVERY 1 HOUR NEEDED, Starting on 05/21/22 at 2105, Until Mon05/24/22 at 1733, See administration instructions
Use as initial dose for Systolic Blood Pressure GREATER than 160 mmHg and Heart rate LESS than 60 beats per minute. Higher dose may be administered if lower dose was previously documented as ineffective 10 minutes after administration and did not result in adverse effects (HR>90)
Or hydrALAZINE (APRESOLINE) injection 20 mgJump to med 20 mg, Intravenous, EVERY 1 HOUR NEEDED, Starting on 05/21/22 at 2105, Until Mon05/24/22 at 1733, See administration instructions
Higher dose may be administered for Systolic Blood Pressure GREATER than 160 mmHg and Heart rate LESS than 60 beats per minute if lower dose was previously documented as ineffective 10 minutes after administration and did not result in adverse effects (HR>90). Decrease back to lower dose if patient has adverse effects, or no PRN used in previous 3 hours
Group 3: labetalol (NORMODYNE) injection 10 mgJump to med 10 mg, Intravenous, EVERY 1 HOUR NEEDED, Starting on 05/21/22 at 2105, Until Mon05/24/22 at 1733, SBP > 160 mmHg with HR >60 bpm, See admininstration instructions
Use as initial dose for Systolic Blood Pressure GREATER than 160 mmHg and Heart Rate GREATER than 60 beats per minute. Higher dose may be administered if lower dose was previously documented as ineffective 10 minutes after administration and did not result in adverse effects (HR<60) For vials: labetalol should be treated as a SINGLE USE VIAL. Discard remaining contents after one use.
Or labetalol (NORMODYNE) injection 20 mgJump to med 20 mg, Intravenous, EVERY 1 HOUR NEEDED, Starting on 05/21/22 at 2105, Until 05/24/22 at 1733, See administration instructions
For Systolic Blood Pressure GREATER than 160 mmHg and if Heart Rate GREATER than 60 beats per minute. Higher dose may be administered if lower dose was previously documented as ineffective 10 minutes after administration and did not result in adverse effects (HR<60). Decrease back to lower dose if patient has adverse effects, or no PRN used in previous 3 hours For vials: labetalol should be treated as a SINGLE USE VIAL. Discard remaining contents after one use.
INFORMATION SOURCE (unrecogn ized section and content) DATE CREATED AUTHOR AUTHOR'S ORGANIZ ATION 07/30/2022 [facility] DATE CREATED AUTHOR AUTHOR'S ORGANIZ ATION 07/31/2022 [facility] DATE CREATED AUTHOR AUTHOR'S ORGANIZ ATION 11/07/2023 [facility] FOR RECORDS PERTAINING TO PATIENTS WHO ARE OR HAVE BEEN ENROLLED IN A CHEMICAL DEPENDENCY/SUBSTANCEABUSE PROGRAM, SOME INFORMATION MAY BE OMITTED. This clinical summary was aggregated from multiple sources. Caution should be exercised in using it in the provision of clinical care. This summary normalizes information from multiple sources, and as a consequence, information in this document may materially change the coding, format and clinical context of patient data. In addition, data may be omitted in some cases. CLINICAL DECISIONS SHOULD BE BASED ON THE PRIMARY CLINICAL RECORDS. [employer] provides no warranty or guarantee of the accuracy or completeness of information in this document.
--- NOTE | 2023-11-23 08:15 | RAD_ITS ---
STUDY: X-RAY - ESOPHAGUS (BARIUM SWALLOW) WITH FLUOROSCOPY REASON FOR EXAM: Female, 78 years old. DYSPHAGIA TECHNIQUE: 23 view(s) of the esophagus were obtained following swallowing of barium. FLUOROSCOPY TIME (if supplied): (28 seconds) minutes/seconds. 10.68 mGy COMPARISON: None. FINDINGS: There is no demonstrated esophageal foreign body. There is no demonstrated stricture or mucosal abnormality. Normal gastroesophageal junction, without a demonstrated hiatal hernia. The patient ingested a 12 mm tablet of barium without any difficulty. There is atherosclerotic calcification of the aortic arch with tortuosity of the descending aorta. Normal visualized pulmonary parenchyma. There are diffuse degenerative changes of the visualized thoracic spine. RAD/Esophagus Dual Contrast IMPRESSION: Normal plain film x-ray examination (barium swallow) of the esophagus. Electronically Signed: Vadim Roche MD at 10:23 EST ,
== END | disposition home or self-care (01) ==
LOC: RAD 07:47
PROVIDERS: PCP Family Medicine; Referring Provider Otolaryngology; Visit Provider Otolaryngology
DX: R13.13 Dysphagia, pharyngeal phase (principal)
CPT/HCPCS: 74221

== ENCOUNTER 2024-12-15 11:10 | Observation (INO) | payer MEDICARE, SELFPAY ==
[2024-12-15] VITALS (8 sets, daily range): BP systolic 102–142; BP diastolic 44–81; PULSE 63–90; RESP 16–20; TEMP 36.8–39; O2SAT 89–97; BMI 34.7; BMI 33.8
--- NOTE | 2024-12-15 11:26 | EX.ED.DYSGE1 ---
HPI <TREVOR Goyal - Last Filed: 12/15/24 12:44> History of Present Illness Chief Complaint: Cold Sx Narrative Narrative: Patient is a 79-year-old female history of TIA, GERD, history of breast cancer, hypertension who presents to the [facility] apartment for 2 days of generalized malaise, cough, fever and chills. Today, the patient went to urgent care, her pulse oxygenation was 91%, she was 88% here. Patient states she is fever, extremely fatigued and here for evaluation. ON LICENSE OF [facility] <TREVOR Goyal - Last Filed: 12/15/24 12:44> ON LICENSE OF [facility] Medical History Cerebrovascular accident (CVA) due to occlusion of cerebral artery Diverticulosis Essential hypertension GERD (gastroesophageal reflux disease) Kidney stones Malignant neoplasm of right breast Mixed hyperlipidemia CLAIRE (obstructive sleep apnea) Spinal stenosis Home Medications ?Medication ?Instructions ?Recorded ?Last Taken ?Type simvastatin 20 mg tablet 20 mg PO QHS 10/19/17 12/14/24 History calcium carbonate (Oyster Shell 500 mg PO DAILY@0800 03/06/18 12/14/24 History Calcium 500) vitamin B complex 1 ea PO DAILY 03/06/18 12/14/24 History zinc amino acid chelate 50 mg 50 mg PO DAILY 03/06/18 12/14/24 History tablet tqaqhsmg-lof-qkgkp acid 0.4 1 ea PO DAILY 09/09/20 12/14/24 History mg-lycopene 300 mcg-lutein 250 mcg tablet anastrozole 1 mg tablet 1 mg PO DAILY 07/08/22 12/14/24 History aspirin 81 mg tablet,delayed 81 mg PO DAILY 07/08/22 12/15/24 History release (Adult Low Dose Aspirin) cholecalciferol (vitamin D3) 50 50 mcg PO BID 07/08/22 12/14/24 History mcg (2,000 unit) tablet losartan 100 mg tablet 100 mg PO DAILY 07/08/22 12/15/24 History trazodone 50 mg tablet 50 mg PO DAILY 08/30/23 12/14/24 History cetirizine 10 mg tablet (24Hour 10 mg PO DAILY 12/15/24 12/15/24 History Allergy) omeprazole 40 mg capsule,delayed 40 mg PO BID 12/15/24 12/14/24 History release timolol maleate 0.5 % eye drops 1 drp ophthalmic (eye) BID 12/15/24 12/14/24 History trimethoprim 100 mg tablet 100 mg PO QHS 12/15/24 12/14/24 History vibegron 75 mg tablet (Gemtesa) 75 mg PO DAILY 12/15/24 12/14/24 History Allergy/AdvReac Type Severity Reaction Status Date / Time No Known Allergies Allergy Verified 12/15/24 11:12 Family History (Reviewed 08/30/23 @ 15:49 by Rajani Ybarra CERTIFIED PROFESSIONAL MIDWIFE, CERTIFIED PROFESSIONAL MIDWIFE-C) Mother Congestive heart failure Hypertension Diabetes Father CAD (coronary artery disease) Myocardial infarction, Onset Age: 60 CVA (cerebral vascular accident) Sister Heart disease Heart valve replaced Brother CAD (coronary artery disease) Myocardial infarction, Onset Age: 60 Surgical History (Reviewed 08/30/23 @ 15:49 by Rajani Ybarra CERTIFIED PROFESSIONAL MIDWIFE, CERTIFIED PROFESSIONAL MIDWIFE-C) History of abdominal surgery History of arthroscopy of left knee History of carpal tunnel surgery History of hand surgery History of hysterectomy History of left knee replacement History of lithotripsy History of lumpectomy of right breast (~08/2020) History of lymph node excision (~08/2020) History of partial knee replacement (~2003) History of partial mastectomy of right breast (~08/2020) History of right and left heart catheterization (LHC) (~03/02/12) Social History (Reviewed 08/30/23 @ 15:49 by Rajani Ybarra CERTIFIED PROFESSIONAL MIDWIFE, CERTIFIED PROFESSIONAL MIDWIFE-C) Smoking Status: Never smoker alcohol intake: never substance use type: does not use caffeine: Yes Type: coffee Number of servings: 2 ROS <TREVOR Goyal - Last Filed: 12/15/24 12:44> ROS ED ROS Narrative Constitutional: Negative for weight loss, weakness. Positive for fever and chills Eyes: Negative for vision loss, vision change, double vision ENT: Negative for any sore throat, ear pain, congestion Cardiovascular: Negative for any chest pain, tightness, palpitations Respiratory: Negative for any hemoptysis, dyspnea, dyspnea on exertion, orthopnea. Positive cough, sputum production Gastrointestinal: Negative for any abdominal pain, nausea, vomiting, diarrhea, constipation, blood in stool, blood in vomit : Negative for any urinary frequency, dysuria, retention, blood in urine Muscle skeletal: Negative for any neck pain, back pain. Positive for myalgias Neurological: Negative for any headache, syncope, dizziness Skin: Negative for any rashes, itching, abrasions, lacerations Psychiatric: Negative for any depression, anxiety, stress, suicidal ideation, homicidal ideation Hematologic: Negative for any excessive bruising, easy bleeding EXAM <TREVOR Goyal - Last Filed: 12/15/24 12:44> Physical Exam Narrative Exam Narrative: Vital signs reviewed. Patient is febrile here, heart rate 90, patient is 88 on room air at rest. HEET: Head normocephalic atraumatic, TMs clear bilaterally. Posterior pharynx is clear, dry mucous membranes. Nares clear bilaterally. Neck: Supple with no lymphadenopathy or tenderness. No signs of meningismus. Cardiac: Regular rate and rhythm no murmurs gallops or rubs, equal peripheral pulses bilaterally. Respiratory: Lungs clear to auscultation bilaterally. No chest tenderness. Abdomen: Soft, nontender, nondistended. No abdominal bruit or pulsatile masses. No hepatosplenomegaly Extremities: No peripheral edema, no signs of gross trauma or deformity. Active full range of motion of all extremities. Neuro: Cranial nerves II through XII intact, no focal neurological deficits. Skin: Clean dry and intact with no rash, purpura, petechiae, vesicles or pustules. Backs/flank: No CVA tenderness, no midline spinal tenderness, no deformity. Psych: Normal mood and affect. No SI, HI or acute psychosis. Const Vital Signs: 12/15/24 11:11 12/15/24 11:27 12/15/24 11:27 Temperature 102.2 F H 102.2 F H Temperature Source Oral Oral Pulse Rate 90 89 Respiratory Rate 18 18 Respiratory Effort Normal Respiratory Pattern Normal Blood Pressure 125/81 H 126/76 H Blood Pressure Mean 95 92 Pulse Ox 95 94 Oxygen Delivery Method Room Air Nasal Cannula Oxygen Flow Rate (L/min) 2 12/15/24 13:14 Temperature 98.3 F Temperature Source Pulse Rate 67 Respiratory Rate 19 H Respiratory Effort Respiratory Pattern Blood Pressure 142/66 H Blood Pressure Mean 91 Pulse Ox 95 Oxygen Delivery Method Oxygen Flow Rate (L/min) <Dr. Travon Kelly MD - Last Filed: 12/15/24 14:00> Physical Exam Const Vital Signs: 12/15/24 11:11 12/15/24 11:27 12/15/24 11:27 Temperature 102.2 F H 102.2 F H Temperature Source Oral Oral Pulse Rate 90 89 Respiratory Rate 18 18 Respiratory Effort Normal Respiratory Pattern Normal Blood Pressure 125/81 H 126/76 H Blood Pressure Mean 95 92 Pulse Ox 95 94 Oxygen Delivery Method Room Air Nasal Cannula Oxygen Flow Rate (L/min) 2 12/15/24 13:14 Temperature 98.3 F Temperature Source Pulse Rate 67 Respiratory Rate 19 H Respiratory Effort Respiratory Pattern Blood Pressure 142/66 H Blood Pressure Mean 91 Pulse Ox 95 Oxygen Delivery Method Oxygen Flow Rate (L/min) [facility] <TREVOR Goyal - Last Filed: 12/15/24 12:44> [facility] Lab Data Labs: Laboratory Results - last 24 hr 12/15/24 11:45 WBC 5.9 RBC 4.13 L Hgb 12.3 Hct 38.3 MCV 92.7 MCH 29.8 MCHC 32.1 RDW Std Deviation 43.8 RDW Coeff of Quyen 12.9 Plt Count 154 MPV 10.3 Immature Gran % (Auto) 0.300 Neut % (Auto) 73.1 H Lymph % (Auto) 11.9 L [place] % (Auto) 13.8 H Eos % (Auto) 0.2 Baso % (Auto) 0.7 Absolute Neuts (auto) 4.3 Absolute Lymphs (auto) 0.70 L Nucleated RBC % 0 Sodium 142 Potassium 3.6 Chloride 108 H Carbon Dioxide 29.0 Anion Gap 5 BUN 14 Creatinine 0.85 Estim Creat Clear Calc 52.88 Est GFR (MDRD) Af Amer 83 Est GFR (MDRD) Non-Af 68 BUN/Creatinine Ratio 16.5 Glucose 104 Calcium 8.6 Radiography Diagnostic Testing: Clinical Impression(s) from Imaging Studies Chest X-Ray 12/15/24 11:27 IMPRESSION: NEGATIVE CHEST Reading Location: [facility] Treatment and Re-Evaluation :: Differential diagnosis includes however is not limited to: COVID-19 influenza, RSV, community-acquired pneumonia, pleural effusions patient does not appear to look well however patient's blood pressure, pulse was within normal limits. Patient is 88% on room air, she will placed on 2 L nasal cannula. Patient is febrile here. Patient be given IV fluids, oral Tylenol, chest x-ray two-view. COVID-19 influenza RSV swab will be obtained. All radiologic examinations were read, reviewed by the emergency department attending. From these reads, a plan of care will be put in place. patient is requiring 2 L nasal cannula oxygen, patient is tolerating oxygen well. Patient was positive for influenza, as does explain the patient's symptoms. Chest x-ray was unremarkable. Patient's CBC, chemistries were unremarkable. At this time, secondary to the influenza A, increased oxygen demand, the patient needs to be admitted to the hospital. I will reach out to the hospitalist. <Dr. Travon Kelly MD - Last Filed: 12/15/24 14:00> [facility] Narrative Medical decision making narrative: I have personally performed a face to face assessment of the patient and have reviewed the JAIME Note. I performed a substantive portion of the visit including all aspects of the following. My lloyd findings include: History is history is remarkable for cough, fatigue, aches congestion that started within the past 24 to 48 hours. Patient does endorse fever with chills. Her headache is global. She denies photophobia neck pain or neck stiffness. Exam is remarkable for temperature of 102.2. Pulse ox 88% on room air at rest. Patient appears ill. HEENT exam is remarkable for rhinorrhea. Lungs reveal no wheeze rales rhonchi. Heart is regular. Rate is normal. There is no murmur, gallop or rub. Abdomen is soft nontender. Medical Decision Making patient with infectious symptoms. This may represent COVID, influenza RSV or bacterial infection. Will obtain chest x-ray to assess for pneumonia. CBC to assess white count differential and H&H to rule out anemia. Comprehensive metabolic panel to assess for endorgan dysfunction. Other additions or changes: Since patient's symptoms started within the past 48 hours she is positive for influenza A will treat with Tamiflu. Hospitalist has been paged for admission since she has a pulse ox of 88%. Lab Data Attestation: I reviewed the patient's lab results. Lab results narrative: CBC is normal with slight shift. Labs: Laboratory Results - last 24 hr 12/15/24 11:45 WBC 5.9 RBC 4.13 L Hgb 12.3 Hct 38.3 MCV 92.7 MCH 29.8 MCHC 32.1 RDW Std Deviation 43.8 RDW Coeff of Quyen 12.9 Plt Count 154 MPV 10.3 Immature Gran % (Auto) 0.300 Neut % (Auto) 73.1 H Lymph % (Auto) 11.9 L [place] % (Auto) 13.8 H Eos % (Auto) 0.2 Baso % (Auto) 0.7 Absolute Neuts (auto) 4.3 Absolute Lymphs (auto) 0.70 L Nucleated RBC % 0 Sodium 142 Potassium 3.6 Chloride 108 H Carbon Dioxide 29.0 Anion Gap 5 BUN 14 Creatinine 0.85 Estim Creat Clear Calc 52.88 Est GFR (MDRD) Af Amer 83 Est GFR (MDRD) Non-Af 68 BUN/Creatinine Ratio 16.5 Glucose 104 Calcium 8.6 Radiography Chest X-Ray - ED: Read by ED Physician (2 view chest x-ray was normal cardiac silhouette and size. There is no evidence of infiltrate, effusion or CHF. Hilum is unremarkable. There are some degenerative changes of the dorsal vertebrae. There is no acute process per my independent read.) Diagnostic Testing: Clinical Impression(s) from Imaging Studies Chest X-Ray 12/15/24 11:27 IMPRESSION: NEGATIVE CHEST Reading Location: [facility] EKG Initial EKG: Attestation: I personally reviewed and interpreted this EKG as follows: Interpretation: Sinus Rhythm (Rate is 83. There is decreased anterior force. No acute ischemic changes noted. MN interval is 174 ms. History 76 ms. QT duration 372 ms. Collins is normal) Management Discussion w/another healthcare provider: Hospitalist (Case was discussed with Dr. Herbie Inman. [facility] observation status. He was informed the patient was started on Tamiflu.) Discharge Plan Dx/Rx/DC Orders Clinical Impression: Influenza A, Mixed hyperlipidemia, CLAIER (obstructive sleep apnea), Essential hypertension, GERD (gastroesophageal reflux disease), Acute hypoxemic respiratory failure, Fever in adult Disposition Disposition: [facility]
--- NOTE | 2024-12-15 11:27 | RAD_ITS ---
PROCEDURE: CHEST PA AND LATERAL REASON FOR EXAM: 79-year-old female, cough, decreased oxygenation, fatigue. TECHNIQUE: Frontal and lateral views of the chest. COMPARISON: None. FINDINGS: The heart size is normal. Calcification of the thoracic aorta. The mediastinal contour is unremarkable. Calcified hilar granulomas. The lungs are clear. No focal consolidation, pleural effusion or pneumothorax. Degenerative changes are identified within the thoracic spine. RAD/Chest PA and Lateral IMPRESSION: NEGATIVE CHEST Reading Location: [id number]
[2024-12-15] MEDS: Acetaminophen 500 MG Tablet 1000 MG PO (11:32)
[2024-12-15 11:54] LABS: Absolute Neutrophil Count 4.3 X10^3/uL (2.0-7.7); Basophil# 0.04 X10^3/uL; Basophil% 0.7 % (0-1); Eosinophil# 0.01 X10^3/uL; Eosinophils% 0.2 % (0-5); Hematocrit 38.3 % (37-47); Hemoglobin 12.3 g/dL (12.0-15.0); Lymphocyte % 11.9 % (19-41); Mean Corp Hgb Conc 32.1 g/dL (32-36); Mean Corpuscular Hgb 29.8 pg (27.0-32.0); Mean Corpuscular Volume 92.7 fL (81-99); Mean Platelet Vol. 10.3 fl (6.2-12.0); Monocyte# 0.81 X10^3/uL; Monocyte% 13.8 % (0-10); NRBC Flagged by Analyzer 0 % (0-5); Neutrophil # 4.28 X10^3/uL (2.7-7.7); Neutrophil % 73.1 % (47-70); Platelet Count 154 K/mm3 (150-450); RBC Distribution Width CV 12.9 % (11.6-14.6); RBC Distribution Width SD 43.8 fl (35.1-43.9); Red Blood Count 4.13 M/mm3 (4.2-5.4); White Blood Count 5.9 K/mm3 (4.4-11.0)
[2024-12-15] MEDS: Ondansetron 4 MG/2 ML Vial IV (12:12)
[2024-12-15 12:40] LABS: Anion Gap 5 (5-15); BUN 14 mg/dL (7-18); BUN/Creat Ratio 16.5 RATIO (10-20); Calcium,Total 8.6 mg/dL (8.5-10.1); Chloride 108 mmol/L (98-107); Creatinine, Serum 0.85 mg/dL (0.55-1.02); EST Glomerular Filtration Rate 68 mL/min (>60); Est Glom Filt Rate - Afr Amer 83 mL/min (>60); Estimated Creatinine Clearance 52.88 ml/min; Glucose 104 mg/dL (74-106); Potassium 3.6 mmol/L (3.5-5.1); Sodium Level 142 mmol/L (136-145)
[2024-12-15] MEDS: 0.9% Normal Saline (500mL Bag) 500 ML 999 ML IV (15:29)
[2024-12-15] MEDS: guaiFENesin Dm 10 ML UDC PO ×2 (15:33→22:40)
[2024-12-15] MEDS: 0.9% Saline Lock 10 ML Syringe IV ×2 (15:33→22:40)
[2024-12-15] MEDS: Albuterol 2.5 MG/3 ML VIAL.NEB. INHALATION (15:58)
--- NOTE | 2024-12-15 17:20 | PCM.HP.STD ---
HPI - General General Date of Admission: 12/15/24 Date of Service: 12/15/24 Chief Complaint: Cough, fevers and chills, generalized malaise HPI Narrative TIFFANY STEWART, is a 79 F who presents to the emergency room with complaints of generalized malaise, cough, fever and chills. She went to urgent care today and her pulse ox was 91% and she was referred here for further care. Pulse ox in the ER here was 88% on room air, white blood cell count was normal, hemoglobin was normal, chemistry panel was unremarkable. Patient had a chest x-ray performed which was unremarkable. Patient was positive for influenza A. Patient will be placed in observation status on MedSurg for influenza A with hypoxia, since her symptoms started within 48 hours she will be treated with Tamiflu, I will also administer aerosol treatments even though the patient is not currently wheezing. Her pulse ox should be checked in the morning on room air and she should be ambulated before any possible discharge. [facility] Medical History Cerebrovascular accident (CVA) due to occlusion of cerebral artery Diverticulosis Essential hypertension GERD (gastroesophageal reflux disease) Kidney stones Malignant neoplasm of right breast Mixed hyperlipidemia CLAIRE (obstructive sleep apnea) Spinal stenosis Home Medications ?Medication ?Instructions ?Recorded ?Last Taken ?Type simvastatin 20 mg tablet 20 mg PO QHS 10/19/17 12/14/24 History calcium carbonate (Oyster Shell 500 mg PO DAILY@0800 03/06/18 12/14/24 History Calcium 500) vitamin B complex 1 ea PO DAILY 03/06/18 12/14/24 History zinc amino acid chelate 50 mg 50 mg PO DAILY 03/06/18 12/14/24 History tablet sfsufjxi-gui-tqgew acid 0.4 1 ea PO DAILY 09/09/20 12/14/24 History mg-lycopene 300 mcg-lutein 250 mcg tablet anastrozole 1 mg tablet 1 mg PO DAILY 07/08/22 12/14/24 History aspirin 81 mg tablet,delayed 81 mg PO DAILY 07/08/22 12/15/24 History release (Adult Low Dose Aspirin) cholecalciferol (vitamin D3) 50 50 mcg PO BID 07/08/22 12/14/24 History mcg (2,000 unit) tablet losartan 100 mg tablet 100 mg PO DAILY 07/08/22 12/15/24 History trazodone 50 mg tablet 50 mg PO DAILY 08/30/23 12/14/24 History cetirizine 10 mg tablet (24Hour 10 mg PO DAILY 12/15/24 12/15/24 History Allergy) omeprazole 40 mg capsule,delayed 40 mg PO BID 12/15/24 12/14/24 History release timolol maleate 0.5 % eye drops 1 drp ophthalmic (eye) BID 12/15/24 12/14/24 History trimethoprim 100 mg tablet 100 mg PO QHS 12/15/24 12/14/24 History vibegron 75 mg tablet (Gemtesa) 75 mg PO DAILY 12/15/24 12/14/24 History Allergy/AdvReac Type Severity Reaction Status Date / Time No Known Allergies Allergy Verified 12/15/24 11:12 Family History Mother Congestive heart failure Hypertension Diabetes Father CAD (coronary artery disease) Myocardial infarction, Onset Age: 60 CVA (cerebral vascular accident) Sister Heart disease Heart valve replaced Brother CAD (coronary artery disease) Myocardial infarction, Onset Age: 60 Surgical History History of abdominal surgery History of arthroscopy of left knee History of carpal tunnel surgery History of hand surgery History of hysterectomy History of left knee replacement History of lithotripsy History of lumpectomy of right breast (~08/2020) History of lymph node excision (~08/2020) History of partial knee replacement (~2003) History of partial mastectomy of right breast (~08/2020) History of right and left heart catheterization (LHC) (~03/02/12) Social History Smoking Status: Never smoker alcohol intake: never substance use type: does not use caffeine: Yes Type: coffee Number of servings: 2 ROS Constitutional Constitutional: Reports chills, fatigue, fever(s), malaise and weakness; Denies anorexia, change in weight or night sweats Eyes Eyes: Denies blurry vision, change in eye color, change in vision, discharge from eye(s) or eye pain Cardiovascular Cardiovascular: Denies chest pain, claudication, dyspnea on exertion, edema or palpitations Respiratory/Chest Respiratory/Chest: Reports cough; Denies hemoptysis, shortness of breath at rest or shortness of breath with exertion Gastrointestinal Gastrointestinal: Denies abdominal pain, coffee ground emesis, constipation, diarrhea, hematemesis, hematochezia, melena, nausea or vomiting Genitourinary Genitourinary: Denies dysuria, hematuria, urinary frequency, urinary hesitancy, urinary incontinence or urinary urgency Musculoskeletal Musculoskeletal: Denies back pain, joint pain, joint stiffness, joint swelling, myalgias or neck pain Neurologic Neurologic: Denies abnormal gait, abnormal speech, dizziness, focal weakness, headache(s), loss of vision, numbness, other visual disturbances, paresthesias, syncope or tingling Psychiatric Psychiatric: Denies anxiety, cognitive impairment, depression, irritability, mood swings or suicidal ideation Endocrine Endocrinology: Denies change in body appearance, cold intolerance, excessive sweating, heat intolerance, polydipsia or polyuria Hematologic/Lymphatic Hematologic/Lymphatic: Denies none, anemia, easy bleeding, easy bruising or lymphadenopathy Allergic/Immunologic Allergic/Immunologic: Denies rhinitis, urticaria, eczemia or asthma Vital Signs Vital Signs Vital Signs: 12/15/24 11:11 12/15/24 11:27 12/15/24 11:27 Temperature 102.2 F H 102.2 F H Temperature Source Oral Oral Pulse Rate 90 89 Respiratory Rate 18 18 Respiratory Effort Normal Respiratory Depth Respiratory Pattern Normal Blood Pressure 125/81 H 126/76 H Blood Pressure Mean 95 92 Blood Pressure Source Blood Pressure Position Blood Pressure Location Pulse Ox 95 94 Oxygen Delivery Method Room Air Nasal Cannula Oxygen Flow Rate (L/min) 2 12/15/24 13:14 12/15/24 14:55 12/15/24 15:16 Temperature 98.3 F 98.6 F Temperature Source Oral Pulse Rate 67 65 Respiratory Rate 19 H 18 Respiratory Effort Normal Non-Labored Respiratory Depth Normal Respiratory Pattern Normal Blood Pressure 142/66 H 126/54 H Blood Pressure Mean 91 78 Blood Pressure Source Monitor Blood Pressure Position Semi-Fowlers Blood Pressure Location Left Forearm Pulse Ox 95 97 Oxygen Delivery Method Nasal Cannula Nasal Cannula Oxygen Flow Rate (L/min) 2 2 12/15/24 15:58 12/15/24 15:58 Temperature Temperature Source Pulse Rate 70 Respiratory Rate 16 Respiratory Effort Respiratory Depth Respiratory Pattern Blood Pressure Blood Pressure Mean Blood Pressure Source Blood Pressure Position Blood Pressure Location Pulse Ox 95 Oxygen Delivery Method Nasal Cannula Oxygen Flow Rate (L/min) 2 Weight Weight: 83.915 kg Body Mass Index (BMI) 33.8 Physical Exam Const alert, oriented x3, no apparent distress and healthy appearing Constitutional Narrative: Patient appears younger than her stated age General Appearance: cooperative, well kempt and well developed Orientation / Consciousness: awake, oriented to person, oriented to place and oriented to time HEENT normocephalic, head/scalp atraumatic, hearing grossly normal bilaterally and moist oral mucous membranes Eyes PERRL, EOMs intact bilaterally and conjunctivae normal Neck supple, no JVD, thyroid normal and no carotid bruits General: trachea midline Resp normal respiratory effort, no retractions, no use of accessory muscles and clear to auscultation bilaterally Auscultation: Negative for rales, rhonchi or wheezes Cardio regular rate, regular rhythm, S1 normal heart sound, S2 normal heart sound, no rub and no gallops Cardio Narrative: Patient has a 2/6 systolic murmur noted at the apex and left sternal border GI normal to inspection, nondistended, normoactive bowel sounds, soft to palpation, non-tender and non-distended Extremity no clubbing, cyanosis or edema Skin no rashes or lesions noted General Skin Exam: no breakdown Neuro oriented x3, CN's II-XII intact bilaterally, moves all extremities, no focal motor deficits and no sensory deficits noted Sensorium / Orientation: awake and alert Speech: speech normal Psych affect normal Results Lab / Micro Data 12/15/24 11:45 12/15/24 11:45 Labs: Laboratory Results - last 24 hr 12/15/24 11:45: WBC 5.9, RBC 4.13 L, Hgb 12.3, Hct 38.3, MCV 92.7, MCH 29.8, MCHC 32.1, RDW Std Deviation 43.8, RDW Coeff of Quyen 12.9, Plt Count 154, MPV 10.3, Immature Gran % (Auto) 0.300, Neut % (Auto) 73.1 H, Lymph % (Auto) 11.9 L, [place] % (Auto) 13.8 H, Eos % (Auto) 0.2, Baso % (Auto) 0.7, Absolute Neuts (auto) 4.3, Absolute Lymphs (auto) 0.70 L, Nucleated RBC % 0, Sodium 142, Potassium 3.6, Chloride 108 H, Carbon Dioxide 29.0, Anion Gap 5, BUN 14, Creatinine 0.85, Estim Creat Clear Calc 52.88, Est GFR (MDRD) Af Amer 83, Est GFR (MDRD) Non-Af 68, BUN/Creatinine Ratio 16.5, Glucose 104, Calcium 8.6 Micro: Microbiology 12/15/24 11:15 Mucosa - Nose SARS-CoV-2, Influenza & RSV (PCR) - Final Influenzae A Imaging Radiology Impression Chest X-Ray 12/15/24 11:27 IMPRESSION: NEGATIVE CHEST Reading Location: [facility] Assessment & Plan Assessment/Plan (1) Influenza A: PLAN: Plan 1. Influenza A infection with hypoxia-patient will be placed in observation status on MedSurg 3, pulse ox will be monitored, it may be possible to discharge the patient tomorrow morning. Patient will be given Tamiflu and aerosol treatments, I do not feel the patient needs any IV corticosteroids or antibiotics at this time. #2 essential hypertension-patient will remain on her current medications #3 hyperlipidemia-patient is on simvastatin #4 cerebrovascular disease-patient is on aspirin #5 obstructive sleep apnea-patient does not use her CPAP machine, she is going to be seen for evaluation to get an Inspire placed Total clinical time spent by myself addressing the patient's medical issues, reviewing all of her data, and collaborating with patient's care team: 55 minutes Charges/Coding Visit Charges Inpatient E&M: 41268 Init Hosp L2
[2024-12-15] MEDS: Acetaminophen 325 MG Tablet 650 MG PO ×2 (17:27→23:39)
[2024-12-15] MEDS: Timolol 0.5% 5ML OPTH.BTL 1 DRP OPHTHALMIC (22:41)
[2024-12-15] MEDS: Heparin Injection (Vial) 5,000 UNIT/ML VIAL 5000 UNIT SC (22:41)
[2024-12-15] MEDS: Oseltamivir Phosphate 75 MG Capsule PO (22:42)
[2024-12-15] MEDS: Atorvastatin Calcium 10 MG Tablet PO (22:42)
[2024-12-15] MEDS: Cholecalciferol (VIT D3) 25 MCG TABLET (1,000 UNITS) 50 MCG PO (22:43)
[2024-12-15] MEDS: Pantoprazole Sodium 40 MG Tablet PO (22:43)
[2024-12-16 05:07] VITALS: BP 133/60; PULSE 66; RESP 18; TEMP 36.8; O2SAT 97
[2024-12-16 07:42] VITALS: PULSE 77; RESP 16; O2SAT 94
[2024-12-16] MEDS: Albuterol 2.5 MG/3 ML VIAL.NEB. INHALATION (07:42)
[2024-12-16] MEDS: Acetaminophen 325 MG Tablet 650 MG PO (08:53)
[2024-12-16] MEDS: Pantoprazole Sodium 40 MG Tablet PO (08:54)
[2024-12-16] MEDS: Losartan Potassium 100 MG Tablet PO (08:54)
[2024-12-16] MEDS: Vibegron 75 MG TABLET PO (08:55)
[2024-12-16] MEDS: Timolol 0.5% 5ML OPTH.BTL 1 DRP OPHTHALMIC (08:55)
[2024-12-16] MEDS: Aspirin E.C. 81 MG Tablet PO (08:55)
[2024-12-16] MEDS: Cholecalciferol (VIT D3) 25 MCG TABLET (1,000 UNITS) 50 MCG PO (08:55)
[2024-12-16] MEDS: Calcium (Elemental) 500 MG Tablet PO (08:55)
[2024-12-16] MEDS: Oseltamivir Phosphate 75 MG Capsule PO (08:55)
[2024-12-16] MEDS: Multivitamins,Ther W-Minerals Tablet 1 TABLET PO (08:56)
[2024-12-16] MEDS: Heparin Injection (Vial) 5,000 UNIT/ML VIAL 5000 UNIT SC (08:59)
[2024-12-16 09:10] VITALS: O2SAT 90; O2SAT 94
[2024-12-16 09:53] VITALS: BP 111/50; PULSE 68; RESP 16; TEMP 37.3; O2SAT 94
[2024-12-16 11:17] VITALS: BP 106/53; PULSE 68; RESP 16; TEMP 37.1; O2SAT 94
--- NOTE | 2024-12-16 12:05 | PCM.DC.SUM ---
Providers Date of Admission: 12/15/24 Date of Discharge: 12/16/24 Primary Care Physician: Dr. Keo Rocha MD Reason For Visit: HYPOXIA Diagnosis Discharge Diagnosis (1) Influenza A: Status: Acute Code(s): J10.1 - Influenza due to other identified influenza virus with other respiratory manifestations Medications at Discharge Home Medications simvastatin 20 mg tablet 20 mg PO QHS 10/19/17 calcium carbonate (Oyster Shell Calcium 500) 500 mg PO DAILY@0800 03/06/18 vitamin B complex 1 ea PO DAILY 03/06/18 zinc amino acid chelate 50 mg tablet 50 mg PO DAILY 03/06/18 oedkenqe-lkk-vxmnp acid 0.4 mg-lycopene 300 mcg-lutein 250 mcg tablet 1 ea PO DAILY 09/09/20 anastrozole 1 mg tablet 1 mg PO DAILY 07/08/22 aspirin 81 mg tablet,delayed release (Adult Low Dose Aspirin) 81 mg PO DAILY 07/08/22 cholecalciferol (vitamin D3) 50 mcg (2,000 unit) tablet 50 mcg PO BID 07/08/22 losartan 100 mg tablet 100 mg PO DAILY 07/08/22 trazodone 50 mg tablet 50 mg PO DAILY 08/30/23 cetirizine 10 mg tablet (24Hour Allergy) 10 mg PO DAILY 12/15/24 omeprazole 40 mg capsule,delayed release 40 mg PO BID 12/15/24 timolol maleate 0.5 % eye drops 1 drp ophthalmic (eye) BID 12/15/24 trimethoprim 100 mg tablet 100 mg PO QHS 12/15/24 vibegron 75 mg tablet (Gemtesa) 75 mg PO DAILY 12/15/24 oseltamivir 75 mg capsule 75 mg PO BID 4 days #8 caps 12/16/24 Hospital Course Operations None Procedures EKG and - (Chest x-ray) Summary of Care Provided Minutes Spent on Discharge: 35 Hospital Course: Patient is an 79-year-old female who presented [facility] ED on 12/15/2024 with URI symptoms and weakness. Short hospital course as noted below. Patient discharged home in stable condition on 12/16. 1. Influenza A infection with hypoxia ? Positive for influenza A on admit. Chest x-ray unremarkable. Desaturated to 88% on room air on admit. Treated with Tamiflu and scheduled DuoNebs while inpatient with improvement. Completed oxygen testing on day of discharge and did not require supplemental oxygen. Will complete 5-day course of Tamiflu on discharge. Chronic medical conditions: ? Class I obesity: BMI 33 on admit. Complicated hospital course, care and prognosis. ? CLAIRE: Outpatient follow-up with sleep medicine for possible inspire device soon, does not use home CPAP. ? History of CVA, history of nonobstructive CAD, hypertension, hyperlipidemia: Stable. Continue home aspirin, statin and losartan. ? GERD: Continue home PPI. ? Overactive bladder: Continue home vibegron. ? History of breast cancer: Continue home anastrozole. Total clinical time spent by myself addressing the patient's medical issues, reviewing all the data, and collaborating with patient's care team: 35 minutes. Physical Exam Const alert, oriented x3 and no apparent distress General Appearance: cooperative and comfortable HEENT normocephalic, head/scalp atraumatic, hearing grossly normal bilaterally, nasal mucous membranes and turbinates normal and moist oral mucous membranes Eyes PERRL, EOMs intact bilaterally and conjunctivae normal Neck full ROM Chest inspection of chest normal Resp normal respiratory effort, normal air movement, no use of accessory muscles and clear to auscultation bilaterally Resp Narrative: Breathing comfortably on room air at rest. Good breath sounds bilaterally throughout, no wheezing or crackles noted. Cardio regular rate, regular rhythm, no murmurs and peripheral pulses 2+ throughout GI normal to inspection, nondistended, normoactive bowel sounds, soft to palpation, non-tender and non-distended Back/Spine normal ROM Extremity normal to inspection and no pedal edema Skin no rashes or lesions noted Neuro moves all extremities and no focal motor deficits Speech: speech normal Motor Exam: strength 5/5 throughout Psych mental status grossly normal Weight / BMI Weight Weight: 83.915 kg Body Mass Index (BMI) 33.8 ABG / Lab / Microbiology Data 12/15/24 11:45 12/15/24 11:45 Laboratory: Laboratory Results - last 24 hr 12/15/24 11:45: Sodium 142, Potassium 3.6, Chloride 108 H, Carbon Dioxide 29.0, Anion Gap 5, BUN 14, Creatinine 0.85, Estim Creat Clear Calc 52.88, Est GFR (MDRD) Af Amer 83, Est GFR (MDRD) Non-Af 68, BUN/Creatinine Ratio 16.5, Glucose 104, Calcium 8.6 Microbiology: Microbiology 12/15/24 11:15 Mucosa - Nose SARS-CoV-2, Influenza & RSV (PCR) - Final Influenzae A Radiography Diagnostic Testing: Radiology Impression Chest X-Ray 12/15/24 11:27 IMPRESSION: NEGATIVE CHEST Reading Location: [facility] D/C Instructions DC O2, CPAP, BIPAP Needs RN Home O2 Qualification: Home O2 Qualification: Is the patient on home oxygen No 12/16/24 09:10 Home O2 Qualification: AT REST 1- Pulse Ox at rest 94 12/16/24 09:10 Home O2 Qualification: WITH AMBULATION 1- Pulse Ox with ambulation 90 12/16/24 09:10 1- Oxygen Flow Rate with 0 12/16/24 09:10 ambulation Home O2 Discharge instructions: No Meaningful Use Info Meaningful Use Meaningful Use Diagnoses (Choose all that apply): None applicable Ischemic Stroke Statin Dosing Therapy Reference: STATIN DOSE THERAPY REFERENCE: * Patients > 75 years receive moderate or high dose statin therapy. * Patients 75 years or YOUNGER should receive HIGH intensity statin dose unless contraindicated. You will be required to document reason for non-treatment if statin daily dose does not meet guidelines. HIGH DOSE STATIN THERAPY DAILY Atorvastatin > than or = to 40 mg Rosuvastatin > than or = to 20 mg Amlodipine + Atorvastatin > than or = to 2.5/40 mg Ezetimibe + Simvastatin 10/80 mg Simvastatin 80mg Discharge Plan Admission Admit Date/Time: 12/15/24 13:09 Primary Reason for Your Visit: cough, fevers/chills, weakness Attending Provider: Kameron Grewal Primary Care Provider: Keo Rocha Consulting Providers: Herbie Inman Instructions Additional Instructions / Restrictions: Take Tamiflu twice daily for 4 more days to complete course for the flu. Continue all other home medications as normal. Discharge Orders/Prescriptions Prescriptions: New oseltamivir 75 mg Capsule 75 mg PO BID 4 Days Qty: 8 0RF Continued aspirin [Adult Low Dose Aspirin] 81 mg tablet,delayed release (DR/EC) 81 mg PO DAILY losartan 100 mg tablet 100 mg PO DAILY anastrozole 1 mg tablet 1 mg PO DAILY cholecalciferol (vitamin D3) 50 mcg (2,000 unit) tablet 50 mcg PO BID trazodone 50 mg tablet 50 mg PO DAILY simvastatin 20 MG tablet 20 mg PO QHS calcium carbonate [Oyster Shell Calcium 500] 500 MG tablet 500 mg PO DAILY@0800 vitamin B complex 1 EACH capsule 1 ea PO DAILY zinc amino acid chelate 50 MG tablet 50 mg PO DAILY jgxetffo-twu-CE-lycopen-lutein 1 EACH tablet 1 ea PO DAILY trimethoprim 100 mg tablet 100 mg PO QHS omeprazole 40 mg capsule,delayed release(DR/EC) 40 mg PO BID timolol maleate 0.5 % drops 1 drp ophthalmic (eye) BID cetirizine [24Hour Allergy] 10 mg tablet 10 mg PO DAILY Gemtesa 75 mg tablet 75 mg PO DAILY Referrals / Follow Up: Keo Rohca MD [Primary Care Provider] - Disposition Disposition (needs filled in before D/C Order can be placed): Home, Self Care Charges/Coding Visit Charges Inpatient E&M: 99242 Disch Hosp >30min
--- NOTE | 2024-12-16 12:45 | CASEMGMT ---
SHEN CM into pt room, pt sitting up in chair on RA eating lunch. Pt is aware that she did not qualify for home oxygen. Pt states she lives alone but her dtr is up visiting from [place]. Pt states she has a cane and walker at home but does not typically use. She has been using the cane since being ill. Pt denies any homegoing needs such as therapy. She feels weak but states it will get better as she gets well. Pt to dc this date.
== END 2024-12-16 13:35 | disposition home or self-care (01) ==
LOC: ED 12:38 → MS3 14:19
PROVIDERS: Nurse Practitioner; Admitting Provider Internal Medicine; Emergency Provider Emergency Medicine; PCP Family Medicine; Visit Provider Hospitalist
DX: J10.1 Influenza due to other identified influenza virus with other respiratory manifestations (principal); R53.1 Weakness; E66.811 Obesity, class 1; I10 Essential (primary) hypertension; Z68.33 Body mass index [BMI] 33.0-33.9, adult; E78.2 Mixed hyperlipidemia; K21.9 Gastro-esophageal reflux disease without esophagitis; N32.81 Overactive bladder; G47.33 Obstructive sleep apnea (adult) (pediatric); Z79.82 Long term (current) use of aspirin; Z79.811 Long term (current) use of aromatase inhibitors; Z79.899 Other long term (current) drug therapy
CPT/HCPCS: 71046; 80048; 85025; 87631; 93005; 94640; 94668; 96361; 96372; 96374; 99221; 99284; A4216; G0378; J2405

== ENCOUNTER → 2024-12-31 | Outpatient (CLI) | payer MEDICARE, SELFPAY | END | disposition home or self-care (01) | PROVIDERS: PCP Family Medicine; Referring Provider Nurse Practitioner Adult Health; Visit Provider Nurse Practitioner Adult Health | DX: G47.33 Obstructive sleep apnea (adult) (pediatric) (principal); Z78.9 Other specified health status | CPT/HCPCS: 95810 ==

== ENCOUNTER → 2025-01-29 | Outpatient (CLI) | payer MEDICARE, SELFPAY ==
[2025-01-29 15:05] LABS: Anion Gap 9 (5-15); BUN 23 mg/dL (4-19); BUN/Creat Ratio 25.8 RATIO (10-20); Calcium,Total 9.6 mg/dL (7.6-11.0); Carbon Dioxide 27.7 mmol/L (21.0-32.0); Chloride 105 mmol/L (98-108); Creatinine, Serum 0.88 mg/dL (0.70-1.20); EST Glomerular Filtration Rate 66 (>60); Glucose 86 mg/dL (70-99); Potassium 4.6 mmol/L (3.3-5.1); Pro- Brain NATRIURETIC PEPTIDE 362 pg/mL (<=1800); Sodium Level 142 mmol/L (133-145)
== END | disposition home or self-care (01) ==
LOC: LAB 13:33
PROVIDERS: PCP Family Medicine; Referring Provider Nurse Practitioner Family; Visit Provider Nurse Practitioner Family
DX: R06.09 Other forms of dyspnea (principal)
CPT/HCPCS: 36415; 80048; 83880

== ENCOUNTER → 2025-02-13 | Outpatient (CLI) | payer MEDICARE, SELFPAY ==
--- NOTE | 2025-02-17 10:28 | STRESSREP ---
Stress Test Report Date: 02/13/2025 Procedure: Pharmacologic stress nuclear imaging study Indications: Coronary artery disease Consent: Per the patient Procedure: The patient underwent pharmacologic (Regadenoson 0.4mg ) evaluation with a peak heart rate of 83 beats per minute (59%predicted maximal heart rate) and a peak blood pressure of 114/70 mmHg. The baseline ECG demonstrated sinus rhythm with nonspecific ST changes. The peak pharmacologic ECG failed to show any diagnostic ischemic changes. There were no cardiac dysrhythmias pretest, during pharmacologic infusion, or recovery. There was no complaint of chest discomfort during pharmacologic infusion or recovery. The patient was injected with 13.3 millicuries of technetium 99m Cardiolite and subsequently rest SPECT Cardiolite nuclear imaging was obtained in the horizontal long, vertical long, and short axis views. The patient underwent pharmacologic (Regadenoson) evaluation. The patient was injected with 42.4 millicuries of technetium 99m Cardiolite and subsequently stress SPECT Cardiolite nuclear imaging was obtained in the horizontal long, vertical long, and short axis views. A gated Cardiolite study at peak stress was obtained. The examination was stopped secondary to completion of protocol. Rest and stress SPECT Cardiolite nuclear imaging status post realignment, normalization, and attenuation correction demonstrate no fixed or reversible perfusion defects. There is end systolic thickening and brightening. The gated Cardiolite study demonstrates myocardial thickening and inward wall motion. The reported LVEF is 83%. Impression: 1. Pharmacologic (Regadenoson) evaluation 2. Peak pharmacologic ECG with no diagnostic ischemic changes. 3. No significant cardiac dysrhythmias noted. 5. Rest and stress SPECT Cardiolite nuclear imaging demonstrate relative uniform tracer uptake and myocardial perfusion appearing within normal limits. 6. The gated Cardiolite study reports an LVEF of 83%. This note was generated with [employer] software. It may contain incorrect words, spelling, and punctuation that were not noted in checking the note before signing.
== END | disposition home or self-care (01) ==
PROVIDERS: PCP Family Medicine; Referring Provider Nurse Practitioner Family; Visit Provider Nurse Practitioner Family
DX: R06.09 Other forms of dyspnea (principal); I34.1 Nonrheumatic mitral (valve) prolapse; E78.2 Mixed hyperlipidemia; I10 Essential (primary) hypertension
CPT/HCPCS: 78452; 93017; A9500; A4216; J2785

== ENCOUNTER 2025-04-23 11:17 | Emergency (ER) | payer MEDICARE, SELFPAY ==
[2025-04-23 11:18] VITALS: BP 154/81; PULSE 78; RESP 16; TEMP 36.8; O2SAT 95
[2025-04-23 13:18] VITALS: BP 123/68; PULSE 68; RESP 18; O2SAT 97
--- NOTE | 2025-04-23 14:12 | CT_ITS ---
PROCEDURE: BRAIN/HEAD WITHOUT CONTRAST 04/23/2025 REASON FOR EXAM: FALL Confusion following a recent fall. TECHNIQUE: BRAIN/HEAD WITHOUT CONTRAST Coronal and Sagittal reconstruction series were provided. One or more dose reduction techniques were used (e.g., Automated exposure control, adjustment of the mA and/or kV according to patient size, use of iterative reconstruction technique. RADIATION DOSE SUMMARY: CTDlvol: 44.99 mGy DLP: 779.24 mGycm COMPARISON: Prior study dated November 22, 2023. FINDINGS: Brain: Low density in the periventricular white matter suggests mild chronic small vessel ischemic changes. Atherosclerotic plaque formation of the cavernous portions of the internal carotid arteries bilaterally. 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 Bones: Unremarkable CT/Brain/Head without Contrast IMPRESSION: CHRONIC CHANGES. NO ACUTE FINDINGS. Reading Location: [id number]
--- NOTE | 2025-04-23 14:12 | RAD_ITS ---
PROCEDURE: KNEE 4 OR MORE VIEWS 04/23/2025 REASON FOR EXAM: FALL/PAIN TECHNIQUE: Four view left knee series COMPARISON: None provided. RAD/Knee 4 or More Views IMPRESSION: No left knee joint effusion is noted. A left total knee prosthesis is in place, without evidence of loosening or meta llic fracture. Satisfactory alignment is noted. No fracture or dislocation is seen. If clinical concern persists, short-term follow-up imaging may be obtained to r ule out a currently occult fracture. Reading Location: [place] [id number]
--- NOTE | 2025-04-23 14:12 | CT_ITS ---
PROCEDURE: SINUS/FACIAL BONE 04/23/2025 REASON FOR EXAM: FALL TECHNIQUE: SINUS/FACIAL BONE Coronal and Sagittal reconstruction series were provided. One or more dose reduction techniques were used (e.g., Automated exposure control, adjustment of the mA and/or kV according to patient size, use of iterative reconstruction technique). RADIATION DOSE SUMMARY: CTDlvol: 29.38 mGy DLP: 569.49 mGycm COMPARISON: None FINDINGS: Frontal: Unremarkable Ethmoid: Unremarkable Sphenoid: Unremarkable Maxillary: Hypoplasia and sclerosis in the opacification of the left maxillary sinus. Turbinates: Unremarkable Nasal Septum: Midline Mastoids/Middle Ears: Well-aerated. 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 Reading Location: [id number]
--- NOTE | 2025-04-23 14:25 | EX.ED.GENINJ ---
HPI History of Present Illness Chief Complaint: Other, Pain/Inj Narrative Narrative: Chief complaint and HPI: Fall evaluation. 80-year-old female with past medical history of HTN, CVA, GERD presents for fall evaluation. Patient states approximately 1 week ago she had a mechanical fall in which she fell onto the hardwood floor. She states she landed on her bilateral knees as well as her face. She states that she called a family member who helped her to her feet. States she had epistaxis at that time. Family encouraged ER evaluation but patient declined. Patient states since the fall she has been having some brain fog and fatigue. Triage note states confusion however patient denies this to me. She states her facial bruising is improving. She also endorses left knee pain and states that it feels warmer compared to the right. Patient states she spoke to her daughter over the phone today who told her she needed to be evaluated in the emergency department. She denies any fever, chills, URI symptoms, vision changes, hearing changes, neck pain, chest pain, shortness of breath, abdominal pain, nausea, vomiting, weakness, numbness/tingling. Review of systems: See HPI Medications: As listed on the chart Allergies: As listed on the chart PFSH: Per chart Vital signs: As listed on the chart. Reviewed. Physical exam: Gen: A&O x3, NAD Head: Normocephalic, atraumatic, no roach signs Gen: A&O x3, NAD Eyes: No sclera icterus, conjunctiva clear, PERRL, EOMI, healing inferior periorbital ecchymosis without swelling ENT: Bilateral hearing aids, moist mucous membranes, no swelling/lacerations/blood in the mouth or the nares, No nasal septal hematoma, no facial tenderness Neck: Trachea midline, No JVD, Nontender, full range of motion CV: RRR, no murmurs, no chest wall TTP Resp: Lungs CTA BL, no w/r/c GI: Abd soft, non-distended, non-tender, no r/r/g Musc: Full ROM, no deformity, no spinal TTP, no lisa step-offs, patient has mild swelling in the left knee compared to the right- slightly warmer compared to the right-no erythema/crepitus-ecchymosis present-tender where ecchymosis is present- ecchymosis is in the inferior portion of the knee, DP/PT pulses +2 in left lower extremity Skin: Warm, dry, intact Neuro: Alert, oriented, grossly intact, sensation intact, GCS 15 Psych: Cooperative, appropriate mood and affect [facility] Medical History (Reviewed 08/30/23 @ 15:49 by Rajani Ybarra STRADDLE CARRIER OPERATOR, STRADDLE CARRIER OPERATOR-C) Cerebrovascular accident (CVA) due to occlusion of cerebral artery Diverticulosis Essential hypertension GERD (gastroesophageal reflux disease) Kidney stones Malignant neoplasm of right breast Mixed hyperlipidemia CLAIRE (obstructive sleep apnea) Spinal stenosis Home Medications ?Medication ?Instructions ?Recorded ?Last Taken ?Type simvastatin 20 mg tablet 20 mg PO QHS 10/19/17 12/14/24 History vitamin B complex 1 ea PO DAILY 03/06/18 12/14/24 History wknodtmx-gpv-yjnyc acid 0.4 1 ea PO DAILY 09/09/20 12/14/24 History mg-lycopene 300 mcg-lutein 250 mcg tablet anastrozole 1 mg tablet 1 mg PO DAILY 07/08/22 12/14/24 History aspirin 81 mg tablet,delayed 81 mg PO DAILY 07/08/22 12/15/24 History release (Adult Low Dose Aspirin) cholecalciferol (vitamin D3) 50 50 mcg PO BID 07/08/22 12/14/24 History mcg (2,000 unit) tablet losartan 100 mg tablet 100 mg PO DAILY 07/08/22 12/15/24 History trazodone 50 mg tablet 50 mg PO DAILY 08/30/23 12/14/24 History cetirizine 10 mg tablet (24Hour 10 mg PO DAILY 12/15/24 12/15/24 History Allergy) omeprazole 40 mg capsule,delayed 40 mg PO BID 12/15/24 12/14/24 History release timolol maleate 0.5 % eye drops 1 drp ophthalmic (eye) BID 12/15/24 12/14/24 History trimethoprim 100 mg tablet 100 mg PO QHS 12/15/24 12/14/24 History vibegron 75 mg tablet (Gemtesa) 75 mg PO DAILY 12/15/24 12/14/24 History ascorbic acid (vitamin C) 500 mg 500 mg PO QDAY 01/29/25 Unknown History tablet calcium carbonate (Oyster Shell 500 mg PO BID 01/29/25 Unknown History Calcium 500) docusate sodium 100 mg capsule 100 mg PO BID 01/29/25 Unknown History fesoterodine 8 mg tablet,extended 8 mg PO QDAY 01/29/25 Unknown History release 24 hr magnesium 200 mg tablet 200 mg PO QDAY 01/29/25 Unknown History zinc gluconate 50 mg tablet 50 mg PO QDAY 01/29/25 Unknown History Allergy/AdvReac Type Severity Reaction Status Date / Time No Known Allergies Allergy Verified 01/29/25 12:57 Family History (Reviewed 08/30/23 @ 15:49 by Rajani Ybarra STRADDLE CARRIER OPERATOR, STRADDLE CARRIER OPERATOR-C) Mother Congestive heart failure Hypertension Diabetes Father CAD (coronary artery disease) Myocardial infarction, Onset Age: 60 CVA (cerebral vascular accident) Sister Heart disease Heart valve replaced Brother CAD (coronary artery disease) Myocardial infarction, Onset Age: 60 Surgical History (Reviewed 08/30/23 @ 15:49 by Rajani Ybarra STRADDLE CARRIER OPERATOR, STRADDLE CARRIER OPERATOR-C) History of abdominal surgery History of arthroscopy of left knee History of carpal tunnel surgery History of hand surgery History of hysterectomy History of left knee replacement History of lithotripsy History of lumpectomy of right breast (~08/2020) History of lymph node excision (~08/2020) History of partial knee replacement (~2003) History of partial mastectomy of right breast (~08/2020) History of right and left heart catheterization (LHC) (~03/02/12) Social History Smoking Status: Never smoker alcohol intake: never substance use type: does not use caffeine: Yes Type: coffee Number of servings: 2 EXAM Physical Exam Const Vital Signs: 04/23/25 11:18 04/23/25 13:18 04/23/25 13:23 Temperature 98.3 F Temperature Source Temporal Pulse Rate 78 68 Respiratory Rate 16 18 Respiratory Pattern Normal Blood Pressure 154/81 H 123/68 H Blood Pressure Mean 105 86 Pulse Ox 95 97 Oxygen Delivery Method Room Air Room Air 04/23/25 15:00 Temperature 96.7 F L Temperature Source Temporal Pulse Rate 62 Respiratory Rate 18 Respiratory Pattern Blood Pressure 117/56 L Blood Pressure Mean 76 Pulse Ox 97 Oxygen Delivery Method Room Air MDM MDM MDM Narrative Medical decision making narrative: 80-year-old female with past medical history of HTN, CVA, GERD presents for fall evaluation. Patient states approximately 1 week ago she had a mechanical fall in which she fell onto the hardwood floor. She states she landed on her bilateral knees as well as her face. She endorses brain fogginess and fatigue since the fall as well as left knee pain. See physical exam findings. Differential diagnosis includes but is not limited to concussion, closed head injury, intracranial bleed, facial contusion, facial fracture, knee contusion, knee fracture, knee effusion. X-ray of the left knee obtained with CT brain and face. Patient has full range of motion of the neck without any tenderness, CT neck not ordered. CT of the brain shows chronic changes without any acute intracranial abnormality. CT of the face shows hyperplasia in the underdevelopment of the left maxillary sinus. Otherwise no fracture or traumatic injury. X-ray of the left knee was personally reviewed interpreted by me, ED physician. Total knee prosthesis in place. No fracture or dislocation. Radiology in agreement. Patient's symptoms are likely secondary to concussion, facial contusion, left knee contusion. Follow-up with PCP. She confirmed understanding of the plan. Tylenol and Motrin as needed for pain.\ Impression: 1. Closed head injury 2. Concussion 3. Facial contusion 4. Left knee contusion 5. Mechanical fall Radiography Diagnostic Testing: Clinical Impression(s) from Imaging Studies Brain CT 04/23/25 14:12 IMPRESSION: CHRONIC CHANGES. NO ACUTE FINDINGS. 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 Reading Location: [id number] Knee X-Ray 04/23/25 14:12 IMPRESSION: No left knee joint effusion is noted. A left total knee prosthesis is in place, without evidence of loosening or metallic fracture. Satisfactory alignment is noted. No fracture or dislocation is seen. If clinical concern persists, short-term follow-up imaging may be obtained to rule out a currently occult fracture. Reading Location: [place] [id number] Discharge Plan Triage Chief Complaint: Other, Pain/Inj ED Provider: Mina Milan Dx/Rx/DC Orders Prescriptions: No Action aspirin [Adult Low Dose Aspirin] 81 mg tablet,delayed release (DR/EC) 81 mg PO DAILY losartan 100 mg tablet 100 mg PO DAILY anastrozole 1 mg tablet 1 mg PO DAILY cholecalciferol (vitamin D3) 50 mcg (2,000 unit) tablet 50 mcg PO BID trazodone 50 mg tablet 50 mg PO DAILY docusate sodium 100 mg capsule 100 mg PO BID fesoterodine 8 mg tablet extended release 24 hr 8 mg PO QDAY magnesium 200 mg tablet 200 mg PO QDAY ascorbic acid (vitamin C) 500 mg tablet 500 mg PO QDAY zinc gluconate 50 mg tablet 50 mg PO QDAY simvastatin 20 MG tablet 20 mg PO QHS vitamin B complex 1 EACH capsule 1 ea PO DAILY calcium carbonate [Oyster Shell Calcium 500] 500 mg calcium (1,250 mg) tablet 500 mg PO BID zjdjwamn-lpk-JK-lycopen-lutein 1 EACH tablet 1 ea PO DAILY trimethoprim 100 mg tablet 100 mg PO QHS omeprazole 40 mg capsule,delayed release(DR/EC) 40 mg PO BID timolol maleate 0.5 % drops 1 drp ophthalmic (eye) BID cetirizine [24Hour Allergy] 10 mg tablet 10 mg PO DAILY Gemtesa 75 mg tablet 75 mg PO DAILY Primary Care Provider: Keo Rocha Referrals: Keo Rocha MD [Primary Care Provider] - Print Language: Sinhala
[2025-04-23 15:00] VITALS: BP 117/56; PULSE 62; RESP 18; TEMP 35.9; O2SAT 97
[2025-04-23 16:03] VITALS: BP 129/46; PULSE 55; RESP 18; TEMP 36.1; O2SAT 93
== END 2025-04-23 16:05 | disposition home or self-care (01) ==
PROVIDERS: Emergency Provider Surgery; PCP Family Medicine; Visit Provider Surgery
DX: S06.0X0A Concussion without loss of consciousness, initial encounter (principal); R53.83 Other fatigue; E78.2 Mixed hyperlipidemia; S80.02XA Contusion of left knee, initial encounter; Z86.73 Personal history of transient ischemic attack (TIA), and cerebral infarction without residual deficits; I10 Essential (primary) hypertension; W19.XXXA Unspecified fall, initial encounter; K21.9 Gastro-esophageal reflux disease without esophagitis; Z96.652 Presence of left artificial knee joint
CPT/HCPCS: 70450; 70486; 73564; 99282

== ENCOUNTER 2025-06-26 10:30 | Outpatient (RCR) | payer MEDICARE, SELFPAY ==
--- NOTE | 2025-05-15 13:48 | HP.PTEVAL_ITS ---
Patient's Visit Information Visit Information Visit Information: BRITTANI STEWART is a 80 year old F referred to Physical Therapy by Dr. Huseyin Santiago MD with a diagnosis of abnormality of gait, spinal stenosis. Date of Evaluation: 05/15/25 Physical Therapist: Jonnathan Leung, DPT, OCS, CSCS Visit Plan Frequency: 2x /Week Duration: 4-6 Weeks Plan: 2x/weeek for 4-6 weeks IE HEP chair sits x10 throughout day, use rollator taught and recommnded due to improveed wt shift and step length with it as well as safety, always hold on when bending. treeat with instruct and progreess to I of UE seated strength, LE strength sink with resistance, core strengh mat all to HEP as safety allows. Also work on gait with challenges for weight shift/ steps and ensure rollator going well if she brings it. Subjective Subjective: Sees Jack for reegular checkup after stroke 3 yrs ago. She has had some falls so he doing adn MRI on head and LB(previous laminectomy) and sent for therapy. Fell due to getting up in middle of night and tried picking them up and fell beending. Was not using AD at time but now uses cane. Fells like hr steadynss is getting worse. Hard to get in adn out of car due to leg weakness. Takes 15 minutes to sit up when she fll. Called son who helps hr geet up. Steadyness is worse since back surgery in [facility]. Also had stressful year as she lost her dtr last August theen son was on drugs. Lives on main floor, 2 steps into kitchen with railing and they are not bad. Has wh walker but it is hard to it through her doorways at home. Can get a rollator. pain is typically not a big issuey. Basic ADLS dress, bathroom, shower but has to use arms to lift leeg over tub. [place]. Not employd No regular exercises. Spends day sitting couch and TV or gams. Other falls if trips on something. Objective Objective: Walks with cane in r UE into PT slow with short steps and poor weight shift and confideence but mod I. Trasnfeer chair without UE I. Harder from low surface adn needs UE. Le AROM WFL but stiff due to sedntarism, HS mod tight at -35 and xteension at hips is to nutral only. Weakness in hips at 3/5 abd, xt, rotation adn unstable with sated testing in core. 3/5 core. knee AROM and strength funcitonal but weak at 3+/5, ankles WFL ROM and 4-/5 strength coordination to reciprocal toe adn heel tap is OK. sensation WNL to gross light touch B LE. reflexes 1/3 patella and achilles B. Lumbar AROM max stiff xt and flexion adn rot/SB but not painful Balance/Special Test Scores Functional Gait Assessment Score: 23 % Disability: 23.3400 CATSIB Score (Max score 120 seconds): 110 Lower Extremity Functional Score: 35 TUG Test Time Seconds: 18 30 Second Chair Rise Test Seconds: 9 Goals Goal 1:: I appropriate HEP for strngth UE/LE, core, wt shifts and increased activity to manage symptoms. Goal Time Frame: 4-6 Weeks Goal 2:: FGA 25/30 to diminish fall risk Goal Time Frame: 4-6 Weeks Goal 3:: 30 STS 12 to show improved strength Goal 4:: out of low chair and car at home 50% improved subjectively. Goal Time Frame: 4-6 Weeks Goal 5:: 42 LEFS Goal Time Frame: 4-6 Weeks Rehabilitation Potential Physical Therapy Diagnosis: sedentary and weak and tight and poor weight shift limiting balance adn mobility Rehabilitation Potential: Fair Anticipated Interventions Patient/Client Instruction: Educate patient on: Condition and Plan of Care For the Purpose of:: To decrease pain, To increase ROM, To improve nutrient delivery to tissue, To increase tolerance to activity/condition/position and To improve ability of physical actions for home/community/work/leisure Therapeutic Exercise to Include: Strength training, Balance training, Agility training, Postural training, Flexibilty training, Gait and locomotor training, Passive ROM and Active ROM For the Purpose of:: To decrease pain, To increase ROM, To improve nutrient delivery to tissue, To improve muscle performance and motor function, To increase tolerance to activity/condition/position, To improve ability of physical actions for home/community/work/leisure and To improve gait and locomotor functions Text: Thank you for the opportunity to evaluate your patient. For Medicare and Medicare HMO plans, please review the plan of care and approve it. It will need to be FAXED BACK to us at [phone] for Medicare purposes. For Medicare only, by signing this I certify the plan of care. Please let me know if there are questions or concerns regarding this plan of care. Physician Signature: Date:
--- NOTE | 2025-06-26 10:53 | HP.PTDCSUM ---
Discharge Summary D/C summary: It has been my pleasure to treat BRITTANI STEWART referred by Dr. Huseyin Santiago MD, with the diagnosis of abnormality of gait, spinal stenosis for a total of 10 visit(s). Discharge Date: 06/26/25 Please see the following information for a summary of their discharge status. Subjective Subjective: Got rid of rollator and been safe. No falls and no concerns. Doing exercises at home adn feeling better. Activities at home pretty normal. 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 using cane all the time away from home. Will have surgical consult with back doctor in July for stenosis. Pain B hips: Pain Intensity (Out of 10): 0 Overall Improvement % Improvement: 98 Objective Objective/Function: Gait is with cane, slow and short steps but mod I. Trasnfers I. Improving 30 SSTS, maintaining balance score. oveerall she is happy with progress and plans to continue via [facility] Goals Goal 1:: I appropriate HEP for strngth UE/LE, core, wt shifts and increased activity to manage symptoms. Goal Progress: Goal Met Goal 2:: FGA / to diminish fall risk Goal Progress: Goal Met Goal 3:: 30 STS 12 to show improved strength Goal Progress: Goal Met Goal 4:: out of low chair and car at home 50% improved subjectively. Goal Progress: Goal Met Goal 5:: 42 LEFS Goal Progress: Progressing Plan Plan: d/c to HEP D/C Information d/c sentence: If there are questions or concerns regarding this patient's physical therapy, please feel free to call me at [phone]. Thank you for the referral of this patient. Sincerely, Jonnathan Leung, DPT, OCS, CSCS Balance/Gait/Functional tests Balance/Special Test Scores Functional Gait Assessment Score: 25 % Disability: 16.6700 CATSIB Score (Max score 120 seconds): 110 Lower Extremity Functional Score: 43 TUG Test Time Seconds: 18 30 Second Chair Rise Test Seconds: 14 Improvement % Improvement: 98
== END 2025-06-26 14:28 | disposition home or self-care (01) ==
LOC: PT 10:30
PROVIDERS: PCP Family Medicine; Referring Provider Psychiatry & Neurology Sleep Medicine; Visit Provider Psychiatry & Neurology Sleep Medicine
DX: R27.0 Ataxia, unspecified (principal); M48.061 Spinal stenosis, lumbar region without neurogenic claudication; Z98.890 Other specified postprocedural states; R26.9 Unspecified abnormalities of gait and mobility; Z86.73 Personal history of transient ischemic attack (TIA), and cerebral infarction without residual deficits
CPT/HCPCS: 97110; 97162; 97164; 97530

== ENCOUNTER 2025-08-11 19:38 | Emergency (ER) | payer MEDICARE, SELFPAY ==
[2025-08-11 19:41] VITALS: BP 128/69; PULSE 81; RESP 18; TEMP 36.6; O2SAT 95; BMI 34.6
[2025-08-11 22:35] LABS: Color, Urine Yellow (Yellow); Glucose, Dipstick Normal (Normal); Ketone-Dipstick Negative (Negative); Leukocyte Esterase-Dipstick 25 /ul (Negative); Nitrite-Dipstick Negative (Negative); Occult Blood-Urine Negative /ul (Negative); Protein-Dipstick 30 mg/dl (Negative); Red Blood Cells-Urine 0 SEEN /hpf (0-5); Specific Gravity, Urine 1.025 (1.002-1.030); Urine Bilirubin Dipstick Negative (Negative)
[2025-08-11 22:40] LABS: Hematocrit 41.3 % (37-47); Hemoglobin 13.2 g/dL (12.0-15.0); Immature Granulocytes Count 0.010 X10^3/uL (0.0-0.0); Mean Corp Hgb Conc 32.0 g/dL (32-36); Mean Corpuscular Volume 92.0 fL (81-99); Mean Platelet Vol. 10.4 fl (6.2-12.0); NRBC Flagged by Analyzer 0 % (0-5); Platelet Count 206 K/mm3 (150-450); RBC Distribution Width CV 13.8 % (11.6-14.6); RBC Distribution Width SD 46.5 fl (35.1-43.9); Red Blood Count 4.49 M/mm3 (4.2-5.4); White Blood Count 7.3 K/mm3 (4.4-11.0)
[2025-08-11 22:45] LABS: Mucous, Urine 1+ /hpf (<or=2+); Squamous Epithelial Cells - UA 0-5 SEEN /hpf (5-10)
[2025-08-11 22:48] VITALS: BP 125/55; PULSE 61; RESP 14; O2SAT 97
[2025-08-11 22:56] LABS: Anion Gap 9 (5-15); BUN 23 mg/dL (4-19); BUN/Creat Ratio 25.9 RATIO (10-20); Calcium,Total 9.6 mg/dL (7.6-11.0); Carbon Dioxide 28.3 mmol/L (21.0-32.0); Chloride 103 mmol/L (98-108); Estimated Creatinine Clearance 47.14 ml/min (50-250); Glucose 137 mg/dL (70-99); Potassium 3.7 mmol/L (3.3-5.1)
[2025-08-12] VITALS: BP 136/64; PULSE 59; RESP 17; TEMP 36.4; O2SAT 98
--- NOTE | 2025-08-12 00:22 | EX.ED.DYSGE1 ---
HPI History of Present Illness Chief Complaint: Hypertension Informant: patient Onset/Context/Timing Onset: Today Context: Gradual Onset Timing: Continuous Quality: Lightheaded, fatigued Location: Generalized Worsened by: Activity Relieved by: Rest Narrative Narrative: Patient presents with dizziness and elevated blood pressure reading. Patient states she felt dizzy and took her blood pressure at home. Patient states it was 107/80. Patient thought that this was high and came to the emergency department. Patient states she feels lightheaded. Patient states she feels fatigued. Patient states her dizziness is better with rest. Patient states it is worse with activity. Patient denies any chest pain or shortness of breath. Patient denies any nausea or vomiting. [facility] Medical History Frequency of urination Urge incontinence Spinal stenosis CLAIRE (obstructive sleep apnea) Mixed hyperlipidemia Kidney stones Diverticulosis GERD (gastroesophageal reflux disease) Malignant neoplasm of right breast Essential hypertension Cerebrovascular accident (CVA) due to occlusion of cerebral artery Home Medications ?Medication ?Instructions ?Recorded ?Last Taken ?Type simvastatin 20 mg tablet 20 mg PO QHS 10/19/17 12/14/24 History vitamin B complex 1 ea PO DAILY 03/06/18 12/14/24 History qghjceqx-gwe-wfliu acid 0.4 1 ea PO DAILY 09/09/20 12/14/24 History mg-lycopene 300 mcg-lutein 250 mcg tablet anastrozole 1 mg tablet 1 mg PO DAILY 07/08/22 12/14/24 History aspirin 81 mg tablet,delayed 81 mg PO DAILY 07/08/22 12/15/24 History release (Adult Low Dose Aspirin) cholecalciferol (vitamin D3) 50 50 mcg PO BID 07/08/22 12/14/24 History mcg (2,000 unit) tablet losartan 100 mg tablet 100 mg PO DAILY 07/08/22 12/15/24 History trazodone 50 mg tablet 50 mg PO DAILY 08/30/23 12/14/24 History cetirizine 10 mg tablet (24Hour 10 mg PO DAILY 12/15/24 12/15/24 History Allergy) omeprazole 40 mg capsule,delayed 40 mg PO BID 12/15/24 12/14/24 History release timolol maleate 0.5 % eye drops 1 drp ophthalmic (eye) BID 12/15/24 12/14/24 History vibegron 75 mg tablet (Gemtesa) 75 mg PO DAILY 12/15/24 12/14/24 History ascorbic acid (vitamin C) 500 mg 500 mg PO QDAY 01/29/25 Unknown History tablet calcium carbonate (Oyster Shell 500 mg PO BID 01/29/25 Unknown History Calcium 500) magnesium 200 mg tablet 200 mg PO QDAY 01/29/25 Unknown History zinc gluconate 50 mg tablet 50 mg PO QDAY 01/29/25 Unknown History sertraline 50 mg tablet 50 mg PO DAILY 04/23/25 Unknown History Allergy/AdvReac Type Severity Reaction Status Date / Time No Known Allergies Allergy Verified 08/11/25 19:41 Family History Mother Congestive heart failure Hypertension Diabetes Father CAD (coronary artery disease) Myocardial infarction, Onset Age: 60 CVA (cerebral vascular accident) Sister Heart disease Heart valve replaced Brother CAD (coronary artery disease) Myocardial infarction, Onset Age: 60 Surgical History History of hand surgery History of left knee replacement History of arthroscopy of left knee History of right and left heart catheterization (LHC) (~03/02/12) History of partial knee replacement (~2003) History of lithotripsy History of hysterectomy History of partial mastectomy of right breast (~08/2020) History of carpal tunnel surgery History of lymph node excision (~08/2020) History of lumpectomy of right breast (~08/2020) History of abdominal surgery Social History Smoking Status: Never smoker alcohol intake: never substance use type: does not use caffeine: Yes Type: coffee Number of servings: 2 ROS ROS ED Constitutional Constitutional ED: Denies chills or fever(s) Eyes Eyes: Denies blurry vision or change in vision ENT ENT ED: Denies rhinorrhea or sore throat Cardiovascular Cardiovascular: Denies chest pain or palpitations Respiratory/Chest Respiratory/Chest: Denies cough or dyspnea Gastrointestinal Gastrointestinal: Denies nausea or vomiting Genitourinary Genitourinary ED: Denies dysuria or hematuria Musculoskeletal Musculoskeletal: Denies back pain or neck pain Integumentary Denies abscess or rash Neurologic Neurologic: Denies headache(s) or weakness Allergic/Immunologic Allergic/Immunologic ED: Denies mouth swelling or urticaria EXAM Physical Exam Const Vital Signs: 08/11/25 19:41 08/11/25 22:48 08/11/25 22:49 Temperature 97.8 F Temperature Source Temporal Pulse Rate 81 61 Respiratory Rate 18 14 Respiratory Effort Normal Non-Labored Respiratory Pattern Normal Blood Pressure 128/69 H 125/55 H Blood Pressure Mean 88 78 Pulse Ox 95 97 Oxygen Delivery Method Room Air Room Air 08/12/25 00:00 08/12/25 00:00 Temperature 97.6 F L Temperature Source Pulse Rate 59 L 59 L Respiratory Rate 17 17 Respiratory Effort Respiratory Pattern Blood Pressure 136/64 H 136/64 H Blood Pressure Mean 88 88 Pulse Ox 98 98 Oxygen Delivery Method Positive well nourished and well developed General Appearance ED: well developed and NAD HEENT Reports moist mucous membranes Neck supple and no JVD Resp normal respiratory effort and clear to auscultation bilaterally Cardio regular rate and regular rhythm GI non-tender and non-distended Palpation: soft Neuro oriented x3, CN's II-XII intact bilaterally and no sensory deficits noted Sensorium / Orientation: alert Motor Exam: strength 5/5 throughout Psych mental status grossly normal MDM MDM MDM Narrative Medical decision making narrative: Differential diagnosis includes dehydration, electrolyte abnormality, viral illness, urinary tract infection, and anxiety. CBC will be obtained to assess for leukocytosis and anemia. Basic metabolic profile will be obtained to assess for electrolyte abnormality renal function. Urinalysis will be obtained to assess for urinary tract infection and hematuria. COVID-19, influenza, and RSV PCR will be obtained to assess for viral illness. Lab Data Attestation: I reviewed the patient's lab results. Lab results narrative: CBC was reviewed and was within normal limits. Basic metabolic profile was reviewed and was within normal limits. Urinalysis was reviewed. There is no evidence of urinary tract infection or hematuria. COVID-19 PCR was reviewed and was negative. Influenza PCR was reviewed and was negative for influenza A and influenza B. RSV PCR was reviewed and was negative. Labs: Laboratory Results - last 24 hr 08/11/25 08/11/25 22:25 22:33 WBC 7.3 RBC 4.49 Hgb 13.2 Hct 41.3 MCV 92.0 MCH 29.4 MCHC 32.0 RDW Std Deviation 46.5 H RDW Coeff of Quyen 13.8 Plt Count 206 MPV 10.4 Immature Gran % (Auto) 0.100 Neut % (Auto) 45.4 L Lymph % (Auto) 41.3 H Emanuel % (Auto) 9.5 Eos % (Auto) 2.5 Baso % (Auto) 1.2 H Absolute Neuts (auto) 3.3 Absolute Lymphs (auto) 3.01 Nucleated RBC % 0 Sodium 141 Potassium 3.7 Chloride 103 Carbon Dioxide 28.3 Anion Gap 9 BUN 23 H Creatinine 0.90 Estim Creat Clear Calc 47.14 L Est GFR (MDRD) Non-Af 64 BUN/Creatinine Ratio 25.9 H Glucose 137 H Calcium 9.6 Urine Color Yellow Urine Clarity Clear Urine pH 5.0 Ur Specific [place] 1.025 Urine Protein 30 H Urine Glucose (UA) Normal Urine Ketones Negative Urine Occult Blood Negative Urine Nitrite Negative Urine Bilirubin Negative Urine Urobilinogen Normal Ur Leukocyte Esterase 25 H Urine RBC 0 SEEN Urine WBC 0-5 SEEN Ur Squamous Epith Cells 0-5 SEEN Urine Bacteria 1+ Urine Mucus 1+ Treatment and Re-Evaluation :: Patient was advised of her findings. Patient was instructed to drink plenty of fluids. Patient was instructed to follow-up with her primary care physician in 5 to 7 days. Patient was instructed to return if worse in any way. Patient understood and was agreeable with plan. All questions were answered. Discharge Plan Triage Chief Complaint: Hypertension ED Provider: Jonnathan Falcon Dx/Rx/DC Orders Clinical Impression: Dizziness, Essential hypertension Instructions: ED Dizziness, Uncertain Cause Prescriptions: No Action aspirin [Adult Low Dose Aspirin] 81 mg tablet,delayed release (DR/EC) 81 mg PO DAILY losartan 100 mg tablet 100 mg PO DAILY anastrozole 1 mg tablet 1 mg PO DAILY cholecalciferol (vitamin D3) 50 mcg (2,000 unit) tablet 50 mcg PO BID trazodone 50 mg tablet 50 mg PO DAILY magnesium 200 mg tablet 200 mg PO QDAY ascorbic acid (vitamin C) 500 mg tablet 500 mg PO QDAY zinc gluconate 50 mg tablet 50 mg PO QDAY simvastatin 20 MG tablet 20 mg PO QHS vitamin B complex 1 EACH capsule 1 ea PO DAILY calcium carbonate [Oyster Shell Calcium 500] 500 mg calcium (1,250 mg) tablet 500 mg PO BID gbgwmevz-xnq-VU-lycopen-lutein 1 EACH tablet 1 ea PO DAILY omeprazole 40 mg capsule,delayed release(DR/EC) 40 mg PO BID timolol maleate 0.5 % drops 1 drp ophthalmic (eye) BID cetirizine [24Hour Allergy] 10 mg tablet 10 mg PO DAILY Gemtesa 75 mg tablet 75 mg PO DAILY sertraline 50 mg tablet 50 mg PO DAILY Primary Care Provider: Keo Rocha Referrals: Keo Rocha MD [Primary Care Provider, Family Practice] - 5-7 Days Print Language: Nepali Disposition Disposition: Home, Self Care Discharge Date/Time: 08/12/25 00:36
== END 2025-08-12 00:36 | disposition home or self-care (01) ==
PROVIDERS: Emergency Provider Emergency Medicine; PCP Family Medicine; Visit Provider Emergency Medicine
DX: R42 Dizziness and giddiness (principal); I10 Essential (primary) hypertension; E78.2 Mixed hyperlipidemia; K21.9 Gastro-esophageal reflux disease without esophagitis; R53.83 Other fatigue
CPT/HCPCS: 80048; 81001; 85025; 87631; 99283; A4216